=== PATIENT | female | born 1940 | race Asian ===

== ENCOUNTER 2019-09-14 14:03 | Outpatient (CLI) | payer MEDICARE, OTHER, SELFPAY ==
[2019-09-14 14:45] LABS: Hematocrit 42.5 % (37.0-47.0); Hemoglobin 13.7 g/dL (12.0-15.0); Mean Corpuscular HGB Conc 32.2 g/dl (32-36); Mean Corpuscular Hemoglobin 29.2 pg (26-34); Mean Corpuscular Volume 90.6 fl (80-100); Mean Platelet Volume 9.1 fl (7.4-10.4); Platelet Count Result 275 k/mm3 (150-375); Red Blood Count 4.69 M/mm3 (4.2-5.4); Red Cell Distribution Width 14.7 % (11.5-14.5); White Blood Count 6.6 K/mm3 (4.5-10.0)
[2019-09-14 14:55] LABS: Blood Urea Nitrogen 23 mg/dL (7-17); Calcium 9.1 mg/dL (8.4-10.2); Carbon Dioxide 29 mmol/L (22-30); Chloride 99 mmol/L (98-107); Estimated Glomerular Filt Rate > 60; Glucose 151 mg/dL (65-105); Potassium 3.9 mmol/L (3.4-5.0); Sodium 138 mmol/L (137-145)
== END 2019-09-14 14:04 | disposition home or self-care (01) ==
PROVIDERS: PCP Internal Medicine; Visit Provider Specialist
DX: R06.09 Other forms of dyspnea (principal)
CPT/HCPCS: 36415; 80048; 85027

== ENCOUNTER 2019-09-17 14:14 | Outpatient (CLI) | payer MEDICARE, OTHER, SELFPAY ==
[2019-09-17 15:46] LABS: INR 0.9
== END 2019-09-17 14:15 | disposition home or self-care (01) ==
LOC: ANHLAB 14:28
PROVIDERS: PCP Internal Medicine; Visit Provider Specialist
DX: R06.09 Other forms of dyspnea (principal); I25.10 Atherosclerotic heart disease of native coronary artery without angina pectoris
CPT/HCPCS: 36415; 85610

== ENCOUNTER 2019-10-05 18:40 | Emergency (ER) | payer MEDICARE, OTHER, SELFPAY ==
--- NOTE | ~2019-10-05 | CT_ITS ---
EXAMINATION: CT brain wo con DATE: 10/05/2019 19:31 INDICATION: Head injury with fall TECHNIQUE: Computed tomography (CT) of the head was performed without intravenous contrast. Sagittal and coronal reconstructions were performed. The mA was adjusted according to patient size. Iterative reconstruction technique was employed. The dose-length product was 605.33 mGy-cm. COMPARISON: head CT dated 04/22/2016 FINDINGS: No fracture. No acute intracranial hemorrhage, acute infarction or abnormal extra axial fluid collect ion. There is moderate scattered white matter hypoattenuation consistent with chronic small vessel is chemic disease. Symmetric prominence of the sulci and arachnoid spaces overlying the convexities cons istent with mild age-appropriate diffuse cerebral volume loss. Ventricles are normal and symmetric. No mass/mass effect. Mild mucosal thickening in the bilateral ethmoid sinuses with opacification of t he posterior most right ethmoid air cell. The orbits and mastoid air cells are normal. Intracranial c alcified cerebral atherosclerosis is noted. IMPRESSION: 1. No fracture or acute intracranial process. 2. Age-related changes including mild diffuse volume loss and moderate scattered white matter hypoatt enuation consistent with chronic small vessel ischemic disease. Reviewed, dictated and finalized at location A. TIC PARTS FABRICATOR TRIMMER IMPRESSION: 1. No fracture or acute intracranial process. 2. Age-related changes including mild diffuse volume loss and moderate scattere d white matter hypoattenuation consistent with chronic small vessel ischemic di sease.
--- NOTE | ~2019-10-05 | XR_ITS ---
EXAMINATION: XR knee LT min 4V DATE: 10/05/2019 23:41 INDICATION: Left knee pain. TECHNIQUE: 5 views of left knee were obtained. COMPARISON: Left knee radiographs 08/04/2018 FINDINGS: Bone alignment is normal. No fracture. There is mild tricompartmental osteoarthritis. No kn ee joint effusion. IMPRESSION: 1. Mild left knee osteoarthritis. Reviewed, dictated and finalized at location A. EEPER
--- NOTE | ~2019-10-05 | XR_ITS ---
EXAMINATION: XR chest 1V portable DATE: 10/05/2019 19:45 INDICATION: Mid chest pain. COPD. TECHNIQUE: frontal view of the chest was obtained. COMPARISON: Chest radiograph dated 03/29/2019 FINDINGS: Left suprahilar opacity corresponding to a biopsy-proven lung adenocarcinoma. No new airspace opaciti es, pulmonary edema, pleural effusion or pneumothorax. The cardiomediastinal silhouette is normal. Me manjit sternotomy wires and mediastinal surgical clips are seen, likely from prior coronary artery bypa ss grafting. Surgical clips at the base of the neck likely related to prior thyroidectomy. IMPRESSION: 1. No acute cardiopulmonary disease. 2. Left suprahilar opacity corresponding to the location of a previously biopsy-proven lung adenocarc inoma, potentially treatment-related scarring although residual malignancy or pneumonia is not exclud able. Correlate with clinical history. Reviewed, dictated and finalized at location A. STANT PASSENGER LOCOMOTIVE ENGINEER IMPRESSION: 1. No acute cardiopulmonary disease. 2. Left suprahilar opacity corresponding to the location of a previously biopsy -proven lung adenocarcinoma, potentially treatment-related scarring although re sidual malignancy or pneumonia is not excludable. Correlate with clinical histo ry.
--- NOTE | ~2019-10-05 | XR_ITS ---
EXAMINATION: XR ankle LT min 3V, XR foot LT min 3V DATE: 10/05/2019 19:45 INDICATION: History of uterine over the foot with the left ankle pain and abrasion TECHNIQUE: 1. Anteroposterior, mortise, additional oblique and lateral view of the left ankle were obtained. 2. Dorsoplantar, two oblique and lateral views of the left foot were obtained. COMPARISON: None. FINDINGS: Alignment of the foot and ankle is normal. Nondisplaced extra articular fracture extending across the proximal metaphyseal region of the left fourth metatarsal which is best appreciated on the AP and mo rtise views of the left ankle. No other fractures identified. Joint spaces are well maintained. Small Achilles and plantar calcaneal spurs. Mild soft tissue swelling of the medial aspect of the mid and hindfoot and over the dorsum of the forefoot. No ankle joint effusion. The soft tissues are unremarka ble. IMPRESSION: 1. Nondisplaced extra-articular fracture across the proximal metaphyseal region of the left fourth me tatarsal. Reviewed, dictated and finalized at location A. CULAR PATHOLOGIST IMPRESSION: 1. Nondisplaced extra-articular fracture across the proximal metaphyseal region of the left fourth metatarsal.
--- NOTE | ~2019-10-05 | CT_ITS ---
EXAMINATION: CT lumbar spine wo con DATE: 10/06/2019 00:37 INDICATION: Low back pain. TECHNIQUE: Computed tomography (CT) of the lumbar spine was performed without intravenous contrast. A utomated exposure control and iterative reconstruction technique were employed. The dose-length produ ct was 812.17 mGy-cm. COMPARISON: None FINDINGS: There is a 3.9 cm cyst in right kidney. There is a 4 mm left kidney stone. There is a 3.0 c m fusiform aneurysm of infrarenal aorta. L5 is a transitional segment. There is 4 mm anterolisthesis of L3 on L4. There is mild chronic anterior wedging of T12 vertebral body, likely physiologic. Interv ertebral disc heights are normal. The following disc levels are specifically discussed: L1-L2: The disc does not extend beyond the endplate margin. There is mild bilateral facet joint osteo arthritis. There is no neural foraminal stenosis. There is no central canal stenosis. L2-L3: The disc is bulging. There is severe bilateral facet joint osteoarthritis. There is mild bilat eral neural foraminal stenosis. There is mild central canal stenosis. L3-L4: The disc is bulging. There is severe bilateral facet joint osteoarthritis. There is mild bilat eral neural foraminal stenosis. There is mild central canal stenosis. L4-L5: The disc is bulging. There is severe bilateral facet joint osteoarthritis. There is mild bilat eral neural foraminal stenosis. There is mild central canal stenosis. L5-S1: The disc does not extend beyond the endplate margin. There is no facet joint hypertrophy. Ther e is no neural foraminal stenosis. There is no central canal stenosis. IMPRESSION: 1. Mild lumbar spondylosis. 2. 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 Reviewed, dictated and finalized at location A. NTOR
--- NOTE | ~2019-10-05 | XR_ITS ---
EXAMINATION: XR hip LT 2V w AP pelvis DATE: 10/05/2019 23:41 INDICATION: Left hip pain. Fall. TECHNIQUE: An anteroposterior view of the pelvis and 2 views of left hip were obtained. COMPARISON: Pelvis and right hip radiographs 05/09/2017 FINDINGS: Bone alignment is normal. No fracture. The hip joint spaces are normal. Osteitis pubis is n oted. There is mild lumbar spondylosis. There are surgical clips in left thigh. IMPRESSION: 1. No fracture. Reviewed, dictated and finalized at location A. D SERVICE COORDINATOR IMPRESSION: 1. No fracture.
[2019-10-05 18:35] VITALS: BP 197/87; PULSE 95; RESP 17; TEMP 36.8; O2SAT 100
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
[2019-10-05 18:56] VITALS: PULSE 95
--- NOTE | 2019-10-05 19:03 | ECG_ITS ---
Measurements Intervals [place] Rate: 89 P: 71 OR: 159 QRS: 50 QRSD: 97 T: 53 QT: 383 QTc: 468 Interpretive Statements SINUS RHYTHM MINIMAL Q WAVES- INFERIOR LEADS BASELINE ARTIFACT- V4 BORDERLINE ECG Electronically Signed On 10-06-2019 7:20:28 [place] [facility] by Evan Valverde D.O.
[2019-10-05 19:17] VITALS: BP 160/78; PULSE 98; RESP 15; O2SAT 96
[2019-10-05 19:18] LABS: Glucose Point of Care 110 (65-105)
[2019-10-05 19:22] LABS: Basophils Percent Auto 0.4 % (0.2-1.2); Eosinophils Absolute Auto 0.3 K/mm3 (0-0.3); Eosinophils Percent Auto 3.3 % (0-4.4); Hematocrit 42.5 % (37.0-47.0); Hemoglobin 13.6 g/dL (12.0-15.0); Immature Granulocyte Absolute 0.03 K/mm3 (0.00-0.031); Immature Granulocyte Percent A 0.3 % (0-0.5); Lymphocytes Absolute Auto 2.07 K/mm3 (0.9-3.2); Lymphocytes Percent Auto 22.1 % (18.3-44.2); Mean Corpuscular Hemoglobin 29.1 pg (26-34); Mean Platelet Volume 9.2 fl (7.4-10.4); Monocytes Absolute Auto 0.7 K/mm3 (0.1-0.6); Monocytes Percent Auto 7.6 % (2.6-8.5); Neutrophils Absolute Auto 6.2 K/mm3 (1.3-6.7); Neutrophils Percent Auto 66.3 % (45.5-73.1); Platelet Count Result 286 k/mm3 (150-375); Red Blood Count 4.67 M/mm3 (4.2-5.4); Red Cell Distribution Width 14.7 % (11.5-14.5); White Blood Count 9.4 K/mm3 (4.5-10.0)
[2019-10-05 19:25] LABS: Add Urine Microscopic? YES; Appearance Urine Cloudy (Clear); Bacteria Urine Trace /hpf; Bilirubin Urine Negative (Negative); Blood Urine Negative (Negative); Color Urine Yellow (Yellow); Glucose Urine UA Negative (Negative); Ketones Urine Negative (Negative); Leukocyte Esterase Ur 3+ LEU/UL (Negative); Mucus Urine Rare /lpf; Nitrate Urine Negative (Negative); Protein Urine 2+ mg/dL (Negative); Squamous Epithelial Cell Urine Moderate /hpf (Few); Urobilinogen Urine Negative mg/dL (<2.0); WBC Urine >75 /hpf
[2019-10-05 19:31] LABS: Prothrombin Time 12.5 Seconds (11.1-14.7)
[2019-10-05 19:32] LABS: Partial Thromboplastin Time 28.5 SECONDS (22.3-36.8)
[2019-10-05 19:36] LABS: Alanine Aminotransferase 31 U/L (4-35); Albumin Level 4.4 g/dL (3.5-5.1); Alkaline Phosphatase 91 U/L (38-126); Aspartate Amino Transferase 37 U/L (14-36); Bilirubin,Total 0.3 mg/dL (0.2-1.3); Blood Urea Nitrogen 24 mg/dL (7-17); Calcium 8.5 mg/dL (8.4-10.2); Carbon Dioxide 25 mmol/L (22-30); Chloride 101 mmol/L (98-107); Estimated Glomerular Filt Rate 48; Glucose 118 mg/dL (65-105); Potassium 3.6 mmol/L (3.4-5.0); Sodium 140 mmol/L (137-145)
[2019-10-05 19:47] LABS: Troponin I < 0.012 ng/mL (0.000-0.034)
[2019-10-05 20:20] VITALS: BP 123/64; PULSE 96; RESP 20; O2SAT 99
[2019-10-05 21:08] VITALS: BP 141/69; PULSE 97; RESP 18; O2SAT 97
--- NOTE | 2019-10-05 21:39 | PC.NURSE ---
lab called they are unable to find the urine culture on pt. custom feed corn operator notified. additional tube sent down.
[2019-10-05 21:56] VITALS: BP 142/73; PULSE 92; RESP 14; O2SAT 96
[2019-10-05 23:00] LABS: Troponin I < 0.012 ng/mL (0.000-0.034)
[2019-10-05] MEDS: CEPHALEXIN 500 MG CAPSULE PO (23:07)
[2019-10-06] VITALS: BP 156/79; PULSE 107; RESP 19; O2SAT 98
[2019-10-06] MEDS: ACETAMINOPHEN 500 MG TABLET 1000 MG PO (00:39)
[2019-10-06 00:52] VITALS: BP 140/66; PULSE 98; RESP 20; TEMP 36.8; O2SAT 98
[2019-10-06 01:25] VITALS: BP 128/76; PULSE 91; RESP 19; O2SAT 95
== END 2019-10-06 01:25 | disposition home or self-care (01) ==
PROVIDERS: Emergency Provider Emergency Medicine; PCP Internal Medicine
DX: S92.345A Nondisplaced fracture of fourth metatarsal bone, left foot, initial encounter for closed fracture (principal); N39.0 Urinary tract infection, site not specified; I10 Essential (primary) hypertension; I25.119 Atherosclerotic heart disease of native coronary artery with unspecified angina pectoris; E78.00 Pure hypercholesterolemia, unspecified; K21.9 Gastro-esophageal reflux disease without esophagitis; M10.9 Gout, unspecified; M81.0 Age-related osteoporosis without current pathological fracture; Z85.118 Personal history of other malignant neoplasm of bronchus and lung; Z95.1 Presence of aortocoronary bypass graft; E89.0 Postprocedural hypothyroidism; Z95.5 Presence of coronary angioplasty implant and graft; Z87.891 Personal history of nicotine dependence; Z79.82 Long term (current) use of aspirin; M17.12 Unilateral primary osteoarthritis, left knee; M47.816 Spondylosis without myelopathy or radiculopathy, lumbar region; I71.4 Abdominal aortic aneurysm, without rupture; R94.31 Abnormal electrocardiogram [ECG] [EKG]; R07.89 Other chest pain; Z92.3 Personal history of irradiation; V03.00XA Pedestrian on foot injured in collision with car, pick-up truck or van in nontraffic accident, initial encounter
CPT/HCPCS: 36415; 70450; 71045; 72131; 73502; 73521; 73564; 73600; 73610; 73630; 80053; 81001; 82948; 84484; 85025; 85610; 85730; 87077; 87086; 87088; 87186; 93005; 99284; A9270

== ENCOUNTER 2019-10-11 15:51 | Outpatient (CLI) | payer MEDICARE, OTHER, SELFPAY ==
[2019-10-11 17:31] LABS: Add Urine Microscopic? NO; Appearance Urine Clear (Clear); Bilirubin Urine Negative (Negative); Blood Urine Negative (Negative); Color Urine Straw (Yellow); Glucose Urine UA Negative (Negative); Ketones Urine Negative (Negative); Leukocyte Esterase Ur Negative LEU/UL (Negative); Nitrate Urine Negative (Negative); Protein Urine Negative (Negative); Specific Grav Ur 1.008 (1.001-1.035); Urobilinogen Urine Negative mg/dL (<2.0)
== END 2019-10-11 15:52 | disposition home or self-care (01) ==
LOC: ANHLAB 15:53
PROVIDERS: PCP Internal Medicine; Visit Provider Nurse Practitioner
DX: R31.9 Hematuria, unspecified (principal)
CPT/HCPCS: 81003

== ENCOUNTER 2020-01-27 12:48 | Outpatient (CLI) | payer MEDICARE, OTHER, SELFPAY ==
[2020-01-27 13:19] LABS: Hemoglobin A1C 7.4 % (<5.7)
[2020-01-27 13:27] LABS: Alanine Aminotransferase 29 U/L (4-35); Albumin Level 4.5 g/dL (3.5-5.1); Alkaline Phosphatase 76 U/L (38-126); Aspartate Amino Transferase 36 U/L (14-36); Bilirubin,Total 0.3 mg/dL (0.2-1.3); Blood Urea Nitrogen 21 mg/dL (7-17); Calcium 9.2 mg/dL (8.4-10.2); Carbon Dioxide 26 mmol/L (22-30); Chloride 103 mmol/L (98-107); Cholesterol 219 mg/dL (0-200); Estimated Glomerular Filt Rate > 60; Glucose 128 mg/dL (65-105); HDL Direct 43 mg/dL; Potassium 3.7 mmol/L (3.4-5.0); Sodium 138 mmol/L (137-145); Triglycerides 138 mg/dL (<150)
[2020-01-27 13:38] LABS: LDL Cholesterol Direct 132 mg/dL
[2020-01-27 14:00] LABS: Vitamin D 25 Hydroxy 44.5 ng/mL
== END 2020-01-27 12:49 | disposition home or self-care (01) ==
PROVIDERS: PCP Internal Medicine; Visit Provider Internal Medicine
DX: R53.82 Chronic fatigue, unspecified (principal); E11.9 Type 2 diabetes mellitus without complications; E78.5 Hyperlipidemia, unspecified; R20.2 Paresthesia of skin; E55.9 Vitamin D deficiency, unspecified; E03.9 Hypothyroidism, unspecified
CPT/HCPCS: 36415; 80053; 80061; 82306; 82607; 83036; 84443

== ENCOUNTER 2020-02-21 10:35 | Outpatient (CLI) | payer MEDICARE, OTHER, SELFPAY ==
--- NOTE | ~2020-02-21 | CT_ITS ---
EXAMINATION: CT brain wo/w con DATE: 02/21/2020 11:44 INDICATION: Transient cerebral ischemia TECHNIQUE: Computed tomography (CT) of the head was performed without and with 100 cc Omnipaque 350 i ntravenous contrast. The dose-length product was 1210.67 mGy-cm. The mA was adjusted according to pat ient size. Iterative reconstruction technique was employed. COMPARISON: CT dated 10/05/2019 FINDINGS: Mild generalized atrophy. No ventriculomegaly or midline shift. Basilar cisterns are patent . Paranasal sinuses and mastoids are pneumatized. There are scattered mild periventricular and subcor tical white matter changes, most likely related to small vessel ischemic disease (microangiopathy). N o abnormal contrast enhancement. Paranasal sinuses and mastoids are pneumatized. No depressed skull f ractures. No acute intracranial hemorrhage, infarction, mass or mass effect. IMPRESSION: 1. No acute intracranial abnormality. 2: Chronic age-related findings. Reviewed, dictated and finalized at location B.
== END 2020-02-21 10:36 | disposition home or self-care (01) ==
PROVIDERS: PCP Internal Medicine; Visit Provider Internal Medicine
DX: G45.9 Transient cerebral ischemic attack, unspecified (principal)
CPT/HCPCS: 70470; Q9967

== ENCOUNTER 2020-06-11 11:02 | Outpatient (CLI) | payer MEDICARE, OTHER, SELFPAY ==
[2020-06-11 12:02] LABS: Hemoglobin A1C 6.2 % (<5.7)
[2020-06-11 12:03] LABS: Alanine Aminotransferase 38 U/L (4-35); Albumin Level 4.5 g/dL (3.5-5.1); Alkaline Phosphatase 74 U/L (38-126); Anion Gap 7 mmol/L (8-16); Aspartate Amino Transferase 40 U/L (14-36); Bilirubin,Total 0.5 mg/dL (0.2-1.3); Blood Urea Nitrogen 21 mg/dL (7-17); Carbon Dioxide 31 mmol/L (22-30); Chloride 104 mmol/L (98-107); Cholesterol 261 mg/dL (0-200); Estimated Glomerular Filt Rate > 60; Glucose 138 mg/dL (65-105); HDL Direct 53 mg/dL; Potassium 4.1 mmol/L (3.4-5.0); Sodium 142 mmol/L (137-145); Triglycerides 165 mg/dL (<150)
[2020-06-11 12:15] LABS: LDL Cholesterol Direct 162 mg/dL
== END 2020-06-11 11:03 | disposition home or self-care (01) ==
LOC: ANHLAB 11:05
PROVIDERS: PCP Internal Medicine; Visit Provider Internal Medicine
DX: E03.9 Hypothyroidism, unspecified (principal); E11.9 Type 2 diabetes mellitus without complications; I10 Essential (primary) hypertension; E78.5 Hyperlipidemia, unspecified
CPT/HCPCS: 36415; 80053; 80061; 83036; 84443

== ENCOUNTER 2020-10-15 14:58 | Outpatient (CLI) | payer MEDICARE, OTHER, SELFPAY ==
--- NOTE | ~2020-10-15 | MM_ITS ---
EXAMINATION: MM screening caprice BI w veronica HISTORY: Screening mammogram TECHNIQUE: Craniocaudal and mediolateral oblique 3-D tomosynthesis images were obtained and synthetic 2-D images were generated. CAD analysis was submitted and interpreted. COMPARISON: 08/20/2019, 07/21/2018, 07/13/2017 bilateral digital screening mammogram examinations BREAST PARENCHYMAL COMPOSITION: There are scattered areas of fibroglandular density. FINDINGS: Stable 7 mm circumscribed opacity in the upper outer left breast, most likely a stable lee gn intramammary lymph node. There is no evidence of suspicious mass, calcification, or architectural distortion to suggest malignancy in either breast. There has been no suspicious interval change. IMPRESSION: 1. No mammographic evidence of malignancy. 2. Recommend routine screening mammography in one year. BI-RADS Category 2: Benign finding(s). Reviewed, dictated and finalized at location A. L DOCTOR
== END 2020-10-15 14:59 | disposition home or self-care (01) ==
PROVIDERS: PCP Internal Medicine; Visit Provider Internal Medicine
DX: Z12.31 Encounter for screening mammogram for malignant neoplasm of breast (principal)
CPT/HCPCS: 77063; 77067

== ENCOUNTER → 2020-11-02 01:43 | Outpatient (CLI) | payer MEDICARE, OTHER, SELFPAY ==
[2020-11-02 20:12] LABS: SARS-CoV-2 RNA PCR Negative
== END ==
PROVIDERS: PCP Internal Medicine; Visit Provider Plastic Surgery
DX: Z01.812 Encounter for preprocedural laboratory examination (principal); Z20.822 Contact with and (suspected) exposure to COVID-19
CPT/HCPCS: C9803; U0003; U0005

== ENCOUNTER 2020-11-02 14:16 | Outpatient (CLI) | payer MEDICARE, OTHER, SELFPAY ==
--- NOTE | 2020-11-02 14:30 | ECG_ITS ---
Measurements Intervals [place] Rate: 73 P: 63 HI: 156 QRS: 29 QRSD: 98 T: 44 QT: 394 QTc: 437 Interpretive Statements SINUS RHYTHM INCOMPLETE RIGHT BUNDLE BRANCH BLOCK LOW QRS VOLTAGE IN PRECORDIAL LEADS CONSIDER INFERIOR INFARCT, AGE INDETERMINATE BORDERLINE T WAVE ABNORMALITY- ANTEROLATERAL LEADS BASELINE ARTIFACT- I, II, III, AVR ABNORMAL ECG Electronically Signed On 11-02-2020 14:31:50 CDT by Evan Valverde D.O.
[2020-11-02 14:50] LABS: Anion Gap 6 mmol/L (8-16); Blood Urea Nitrogen 21 mg/dL (7-17); Carbon Dioxide 31 mmol/L (22-30); Chloride 101 mmol/L (98-107); Estimated Glomerular Filt Rate 60; Glucose 118 mg/dL (65-105); Potassium 3.7 mmol/L (3.4-5.0); Sodium 138 mmol/L (137-145)
== END 2020-11-02 14:17 | disposition home or self-care (01) ==
PROVIDERS: Anesthesiology; PCP Internal Medicine; Visit Provider Plastic Surgery
DX: I10 Essential (primary) hypertension (principal); E11.9 Type 2 diabetes mellitus without complications; Z01.818 Encounter for other preprocedural examination; I45.10 Unspecified right bundle-branch block
CPT/HCPCS: 36415; 80048; 93005; C9803; U0003; U0005

== ENCOUNTER 2020-11-05 02:41 | Day surgery (SDC) | payer MEDICARE, OTHER, SELFPAY ==
[2020-10-29 09:21] VITALS: BMI 30.4
[2020-11-05] MEDS: LACTATED RINGERS 1,000 ML 30 ML IV CONT ×2 (06:35→08:23)
[2020-11-05 06:39] LABS: Glucose Point of Care 132 (65-105)
--- NOTE | 2020-11-05 06:58 | WPDANESEPPF ---
Anes - Initial Pre Proc Eval Procedure: Operation Date: 11/05/20 07:30 Proposed Procedures p Excision Of Lower Volar Wrist Ganglion Cyst - Rashid Lind MD Date/Time: 11/05/20 06:58 Surgeon: Rashid Lind MD Pre Op Diagnosis: left ganglion cyst Patient Data Age: 80 Gender: F Height: 4 ft 10 in Weight: 66 kg Allergies Allergy/AdvReac Type Severity Reaction Status Date / Time codeine Allergy Mild Dizziness Verified 11/05/20 06:18 sulfamethoxazole Allergy Mild Nausea and Verified 11/05/20 06:18 Vomiting clopidogrel Allergy Unknown Rash Verified 11/05/20 06:18 tiotropium Allergy Unknown Hives / Verified 11/05/20 06:18 Red Face aspartame AdvReac Mild HEADACHE Verified 11/05/20 06:18 Home Medications Medication Instructions Recorded Confirmed Type aspirin 81 mg tablet,delayed 81 mg PO HS 07/25/19 11/05/20 History release candesartan [Atacand] 32 mg PO HS 10/05/19 11/05/20 History dextromethorphan-guaifenesin 10 10 ml PO Q4-6H PRN 02/10/20 11/05/20 History mg-100 mg/5 mL oral liquid docusate sodium 50 mg capsule 50 mg PO DAILY 02/10/20 11/05/20 History lancets 33 gauge #200 each 02/18/20 10/07/20 Rx blood sugar diagnostic #200 each 03/12/20 10/07/20 Rx omeprazole 20 mg capsule,delayed 20 mg PO BID #180 cap 06/17/20 11/05/20 Rx release albuterol sulfate 0.63 mg/3 mL 0.63 mg INHALATION Q4-6H PRN 08/13/20 11/05/20 History solution for nebulization amlodipine 10 mg PO HS 10/29/20 11/05/20 History calcium carbonate-vitamin D3 1 cap PO DAILY 10/29/20 11/05/20 History hydrochlorothiazide 12.5 mg PO DAILY 10/29/20 11/05/20 History levothyroxine [Synthroid] 75 mcg PO QAM 10/29/20 11/05/20 History metformin 500 mg PO DAILY 10/29/20 11/05/20 History potassium chloride 10 meq PO DAILY 10/29/20 11/05/20 History Laboratory Tests 11/05/20 06:37 POC Capillary Glucose 132 mg/dl H mg/dl (65-105) Patient hx anesthesia problems: none Family hx anesthesia problems: none PMFSH Past Medical History Medical History AAA (abdominal aortic aneurysm) Abdominal pain Adenomatous colon polyp Anxiety Arthritis Atherosclerotic heart disease of [place] coronary artery with angina pectoris Bloating Cataracts, bilateral Depression Epigastric pain Essential (primary) hypertension Gastro-esophageal reflux disease without esophagitis Gout Hypothyroidism, unspecified (04/05/19) Lung cancer Osteoporosis Overweight (09/15/15) Pure hypercholesterolemia Screening for breast cancer UTI (urinary tract infection) Surgical History Surgical History History of hysterectomy Hx of CABG Hx of cardiac catheterization Hx of thyroidectomy Status post aortic coarctation stent placement Family History Family History Father Patient's father is Family history of malignant neoplasm Mother Family history of tuberculosis Patient's mother is Sibling Patient's brother is in good health Other Family history of cardiovascular disease Malignant neoplasm of prostate Social History Social History Smoking packs per day: 1 Smoking cigarettes per day: 20.0 Years smoked: 55 Smoking pack-years: 55.00 Tobacco type: cigarettes Second hand tobacco smoke exposure: No Smoking end date: 02/04/19 Alcohol intake: never Substance use: never Living arrangements: alone Gender identity (if verbalized by the patient): Female Spiritual care concerns: No Anes - Eval Final PreProcedure Day of Procedure 11/05/20 06:58 Patient weight: obese Heart: regular rate and rhythm Lungs: decreased breath sounds Airway: Mallampati scale class II Neurological: alert and oriented Last oral intake: >/= 8 hours ASA classification: IV Em
[2020-11-05 06:59] VITALS: BP 122/55; PULSE 81; TEMP 36.3; O2SAT 100
--- NOTE | 2020-11-05 07:19 | WPDHPUPDATE1 ---
History and Physical Update Update Date/Time: 11/05/20 07:19 History and Physical has been reviewed, including an updated exam of the patient. There are NO changes in the patient's condition. Risks, benefits, and alternatives have been discussed and questions answered. Patient agrees to proceed with procedure.
[2020-11-05] MEDS: LIDO 1%/EPINEPHRINE 1:100,000 50 ML VIAL 10 ML INFILTRATE (07:30)
[2020-11-05] MEDS: BACITRACIN OINTMENT 15 GM TUBE 1 APPLIC TOPICAL (08:13)
[2020-11-05 08:25] VITALS: BP 105/51; PULSE 74; RESP 12; O2SAT 96
--- NOTE | 2020-11-05 08:36 | P.OPB_ITS ---
Procedure Note - Brief Procedure Note - Brief Date of procedure: 11/05/20 Pre-op diagnosis: left ganglion cyst Post-op diagnosis: other (Lipoma, 2.5 cm, left volar wrist.) Procedure performed: Excision of lipoma 2.5 cm left volar wrist. Anesthesia: MAC Surgeon: Rashid Lind MD [employer] Job Titles: [employer] Estimated blood loss (mL): 2 Tourniquet time (min): 24 Drains: No Packing: No Pathology: none sent Complications: No immediate complications Condition: stable Disposition: same day
[2020-11-05 08:37] LABS: Glucose Point of Care 124 (65-105)
--- NOTE | 2020-11-05 08:38 | P.OP_ITS ---
Procedure Note - Detailed Date of procedure: 11/05/20 Pre-op diagnosis: left ganglion cyst Post-op diagnosis: other (Lipoma 2.5 cm left volar wrist) Procedure performed: Excision of 2.5 cm lipoma from the left volar wrist Description of procedure: The large do not mass at the left volar wrist was identified in holding area and marked for excision. Patient agreed she was taken to the operating room placed supine on operating table. A time-out was held and confirmed she was given IV sedation. The extremity was prepped and draped in usual fashion. The tourniquet was inflated to 250 mmHg. The dog leg incision was made as marked and dissection through the subcutaneous fat. This rvealed the yellow lobular lipoma. This was somewhat multiloculated and was freed in all directions and removed. The radial artery was identified and care fully not traumatized. A few small branches were cauterized off of that. The site was carefully cauterized for small vessels. The tourniquet was released. A small sq of Surgicel was placed at the very base of this wound. The wound was closed in 2 layers with 4-0 Monocryl suture. A soft bandage was applied with Wellington wrap she is discharged with instructions wound care follow-up. Surgeon: Rashid Lind MD
[2020-11-05 09:05] VITALS: BP 111/46; PULSE 75; RESP 16; O2SAT 95
== END 2020-11-05 09:55 | disposition home or self-care (01) ==
PROVIDERS: PCP Internal Medicine; Visit Provider Plastic Surgery
PROC: (CPT 25075; principal; 2020-11-05 07:30)
DX: D17.22 Benign lipomatous neoplasm of skin and subcutaneous tissue of left arm (principal); Z79.82 Long term (current) use of aspirin; Z79.51 Long term (current) use of inhaled steroids; Z79.84 Long term (current) use of oral hypoglycemic drugs; I71.4 Abdominal aortic aneurysm, without rupture; I25.10 Atherosclerotic heart disease of native coronary artery without angina pectoris; I10 Essential (primary) hypertension; E89.0 Postprocedural hypothyroidism; E78.00 Pure hypercholesterolemia, unspecified; F41.8 Other specified anxiety disorders; K21.9 Gastro-esophageal reflux disease without esophagitis; M10.9 Gout, unspecified; M81.0 Age-related osteoporosis without current pathological fracture; Z95.1 Presence of aortocoronary bypass graft; Z87.891 Personal history of nicotine dependence; E66.9 Obesity, unspecified; Z68.28 Body mass index [BMI] 28.0-28.9, adult
CPT/HCPCS: 25075; A9270; J1100; J2405; J2704; J3010; J7120

== ENCOUNTER 2020-12-09 09:48 | Outpatient (CLI) | payer MEDICARE, OTHER, SELFPAY ==
[2020-12-09 10:35] LABS: Alanine Aminotransferase 23 U/L (4-35); Albumin Level 4.3 g/dL (3.5-5.1); Alkaline Phosphatase 67 U/L (38-126); Anion Gap 7 mmol/L (8-16); Aspartate Amino Transferase 31 U/L (14-36); Bilirubin,Total 0.2 mg/dL (0.2-1.3); Blood Urea Nitrogen 14 mg/dL (7-17); Calcium 8.6 mg/dL (8.4-10.2); Carbon Dioxide 30 mmol/L (22-30); Chloride 106 mmol/L (98-107); Cholesterol 238 mg/dL (0-200); Estimated Glomerular Filt Rate 53; Glucose 122 mg/dL (65-105); HDL Direct 53 mg/dL; Potassium 3.5 mmol/L (3.4-5.0); Sodium 143 mmol/L (137-145); Triglycerides 160 mg/dL (<150)
[2020-12-09 10:36] LABS: Creatinine Urine 196.5 mg/dL
[2020-12-09 10:42] LABS: Hemoglobin A1C 6.8 % (<5.7)
[2020-12-09 10:54] LABS: LDL Cholesterol Direct 128 mg/dL; Vitamin D 25 Hydroxy 53.2 ng/mL
== END 2020-12-09 09:49 | disposition home or self-care (01) ==
PROVIDERS: PCP Internal Medicine; Visit Provider Nurse Practitioner
DX: E78.5 Hyperlipidemia, unspecified (principal); E89.0 Postprocedural hypothyroidism; E11.9 Type 2 diabetes mellitus without complications; E55.9 Vitamin D deficiency, unspecified
CPT/HCPCS: 36415; 80053; 80061; 82043; 82306; 83036; 84443

== ENCOUNTER 2021-01-04 14:01 | Emergency (ER) | payer MEDICARE, OTHER, SELFPAY ==
[2021-01-04 14:58] VITALS: BP 146/82; PULSE 75; RESP 16; TEMP 36.2; O2SAT 99
--- NOTE | 2021-01-04 16:00 | ED.SKABFB ---
HPI - Skin/Abscess/Foreign Bdy General Chief complaint: Skin/Abscess/Foreign Body Stated complaint: R FACE PAIN RASH NOTED Time Seen by Provider: 01/04/21 15:36 Source: patient Mode of arrival: ambulatory Limitations: no limitations History of Present Illness HPI narrative: Patient is a 80-year-old female complaining of a painful rash on her left forehead, eyebrows and face, described as sharp, 7 out of 10, nonradiating started 4 days ago. Patient denies any headache, neck pain or stiffness, fever or chills. Related Data Home Medications Medication Instructions Recorded Confirmed aspirin 81 mg tablet,delayed 81 mg PO HS 07/25/19 12/15/20 release candesartan [Atacand] 32 mg PO HS 10/05/19 12/15/20 dextromethorphan-guaifenesin 10 10 ml PO Q4-6H PRN 02/10/20 12/15/20 mg-100 mg/5 mL oral liquid docusate sodium 50 mg capsule 50 mg PO DAILY 02/10/20 12/15/20 albuterol sulfate 0.63 mg/3 mL 0.63 mg INHALATION Q4-6H PRN 08/13/20 12/15/20 solution for nebulization amlodipine 10 mg PO HS 10/29/20 12/15/20 calcium carbonate-vitamin D3 1 cap PO DAILY 10/29/20 12/15/20 levothyroxine [Synthroid] 75 mcg PO QAM 10/29/20 12/15/20 metformin 500 mg PO DAILY 10/29/20 12/15/20 potassium chloride 10 meq PO DAILY 10/29/20 12/15/20 Allergies Allergy/AdvReac Type Severity Reaction Status Date / Time codeine Allergy Mild Dizziness Verified 12/15/20 10:14 sulfamethoxazole Allergy Mild Nausea and Verified 12/15/20 10:14 Vomiting clopidogrel Allergy Unknown Rash Verified 12/15/20 10:14 tiotropium Allergy Unknown Hives / Verified 12/15/20 10:14 Red Face aspartame AdvReac Mild HEADACHE Verified 12/15/20 10:14 Review of Systems Review of Systems: All systems reviewed & are unremarkable except as noted in HPI and below PMFSH Past Medical History Medical History AAA (abdominal aortic aneurysm) Abdominal pain Adenomatous colon polyp Anxiety Arthritis Atherosclerotic heart disease of [place] coronary artery with angina pectoris Bloating Cataracts, bilateral Depression Epigastric pain Essential (primary) hypertension Gastro-esophageal reflux disease without esophagitis Gout Hypothyroidism, unspecified (04/05/19) Lung cancer Osteoporosis Overweight (09/15/15) Pure hypercholesterolemia Screening for breast cancer UTI (urinary tract infection) Surgical History Surgical History History of hysterectomy Hx of CABG Hx of cardiac catheterization Hx of thyroidectomy Status post aortic coarctation stent placement Family History Family History Father Patient's father is Family history of malignant neoplasm Mother Family history of tuberculosis Patient's mother is Sibling Patient's brother is in good health Other Family history of cardiovascular disease Malignant neoplasm of prostate Social History Social History Smoking packs per day: 1 Smoking cigarettes per day: 20.0 Years smoked: 55 Smoking pack-years: 55.00 Smoking status: Former smoker Tobacco type: cigarettes Second hand tobacco smoke exposure: No Smoking end date: 02/04/19 Alcohol intake: never Substance use: never Gender identity (if verbalized by the patient): Female Spiritual care concerns: No Exam Const: General: no acute distress and alert Orientation/consciousness: patient oriented x3 HENMT: Other: Erythematous, painful, rash Course Vital Signs Vital signs: Vital Signs Temperature 36.2 C L 01/04/21 14:58 Pulse Rate 75 01/04/21 14:58 Respiratory Rate 16 01/04/21 14:58 Blood Pressure 146/82 H 01/04/21 14:58 Pulse Oximetry 99 01/04/21 14:58 Temperature 36.2 C L 01/04/21 14:58 Pulse Rate 75 01/04/21 17:47 Respiratory Rate 18 01/04
[2021-01-04 17:47] VITALS: BP 142/74; PULSE 75; RESP 18; O2SAT 100
== END 2021-01-04 18:16 | disposition home or self-care (01) ==
PROVIDERS: Emergency Provider Emergency Medicine; PCP Internal Medicine
DX: B02.9 Zoster without complications (principal); I25.119 Atherosclerotic heart disease of native coronary artery with unspecified angina pectoris; I10 Essential (primary) hypertension; E78.00 Pure hypercholesterolemia, unspecified; K21.9 Gastro-esophageal reflux disease without esophagitis; M81.0 Age-related osteoporosis without current pathological fracture; M19.90 Unspecified osteoarthritis, unspecified site; H26.9 Unspecified cataract; Z86.010 Personal history of colon polyps; Z87.440 Personal history of urinary (tract) infections; Z85.118 Personal history of other malignant neoplasm of bronchus and lung; Z95.1 Presence of aortocoronary bypass graft; E89.0 Postprocedural hypothyroidism; Z79.4 Long term (current) use of insulin; Z79.82 Long term (current) use of aspirin; Z87.891 Personal history of nicotine dependence
CPT/HCPCS: 99283

== ENCOUNTER 2021-01-18 14:30 | Outpatient (CLI) | payer MEDICARE, OTHER, SELFPAY ==
--- NOTE | ~2021-01-18 | CT_ITS ---
EXAMINATION: CT diagnostic chest wo con DATE: 01/18/2021 14:57 INDICATION: Personal history of malignant neoplasm of bronchus and lung TECHNIQUE: Computed tomography (CT) of the chest was performed without intravenous contrast. Automate d exposure control and iterative reconstruction technique were employed. Exam dose: 149.50 mGy-cm to jo exam DLP. COMPARISON: Numerous portable AP chest 03/29/2019 2 view chest 08/04/2018 CT pulmonary scan FINDINGS: There is left lung volume loss with prominent discoid spans of density extending from the l eft hilar area into the anteromedial left lung and along the greater fissure in the left mid lung. The differential diagnosis includes postoperative and/or postradiation scarring versus residual or re current pulmonary malignancy. Consider PET/CT scan for further evaluation. There are scattered subcentimeter nodular densities in the posterior basilar left lower lung and the costophrenic gutter. There are scattered focal areas of pleural thickening along the left chest wall. Pulmonary and pleural metastatic disease cannot be excluded. No pulmonary consolidation is noted otherwise. Status post sternotomy. Heart size appears within normal range. There is extensive aortic as well as great vessel calcifications. No thoracic aortic aneurysm. No pericardial or pleural effusion. The adrenal glands are unremarkable. Probable upper pole right renal cyst. Dextro scoliosis and degenerative change of the thoracic spine. No suspicious osteolytic or osteoblas tic lesions are noted. IMPRESSION: Discoid soft tissue band extending from the left hilum into the left mid and upper lung zones; differential diagnosis includes postsurgical and/or post radiation scarring versus residual or recurrent pulmonary malignancy. Subcentimeter pleural and pulmonary nodules on the left; metastases are not excluded. Consider PET/CT imaging Reviewed, dictated and finalized at [facility]. Reviewed, dictated and finalized at [facility]. IMPRESSION: Discoid soft tissue band extending from the left hilum into the le ft mid and upper lung zones; differential diagnosis includes postsurgical and/o r post radiation scarring versus residual or recurrent pulmonary malignancy. Subcentimeter pleural and pulmonary nodules on the left; metastases are not exc luded. Consider PET/CT imaging
== END 2021-01-18 14:31 | disposition home or self-care (01) ==
LOC: ANHIMG 14:39
PROVIDERS: PCP Internal Medicine; Visit Provider Radiology Radiation Oncology
DX: Z85.118 Personal history of other malignant neoplasm of bronchus and lung (principal); R91.8 Other nonspecific abnormal finding of lung field
CPT/HCPCS: 71250

== ENCOUNTER 2021-02-26 01:57 | Day surgery (SDC) | payer MEDICARE, OTHER, SELFPAY ==
[2021-02-12 08:25] VITALS: BMI 29.9
[2021-02-26 10:35] VITALS: BP 121/101; PULSE 68; RESP 20; TEMP 36.3; O2SAT 100; BMI 29.9
[2021-02-26] MEDS: LACTATED RINGERS 1,000 ML 150 ML IV CONT (10:51)
[2021-02-26 10:56] LABS: Glucose Point of Care 134 mg/dl (65-105)
--- NOTE | 2021-02-26 11:10 | WPDANESEPPF ---
Anes - Initial Pre Proc Eval Procedure: Operation Date: 02/26/21 11:30 Proposed Procedures p Esophagogastroduodenoscopy & Screening Colonoscopy - Sarabjit Grider MD Date/Time: 02/26/21 11:10 Surgeon: Sarabjit Grider MD Pre Op Diagnosis: hx of colon polyps, Patient Data Age: 80 Gender: F Height: 1.47 m Weight: 65 kg Last Vital Signs Temp 97.4 F L 02/26/21 10:35 Pulse 68 02/26/21 10:35 Resp 20 02/26/21 10:35 BP 121/101 H 02/26/21 10:35 Pulse Ox 100 02/26/21 10:35 Allergies Allergy/AdvReac Type Severity Reaction Status Date / Time codeine Allergy Mild Dizziness Verified 02/26/21 10:34 sulfamethoxazole Allergy Mild Nausea and Verified 02/26/21 10:34 Vomiting clopidogrel Allergy Unknown Rash Verified 02/26/21 10:34 tiotropium Allergy Unknown Hives / Verified 02/26/21 10:34 Red Face fluticasone Allergy Hives Verified 02/26/21 10:34 [From Advair Diskus] salmeterol Allergy Hives Verified 02/26/21 10:34 [From Advair Diskus] aspartame AdvReac Mild HEADACHE Verified 02/26/21 10:34 Home Medications Medication Instructions Recorded Confirmed Type aspirin 81 mg tablet,delayed 81 mg PO HS 07/25/19 02/16/21 History release candesartan [Atacand] 32 mg PO HS 10/05/19 02/16/21 History dextromethorphan-guaifenesin 10 10 ml PO Q4-6H PRN 02/10/20 02/16/21 History mg-100 mg/5 mL oral liquid docusate sodium 50 mg capsule 50 mg PO DAILY 02/10/20 02/16/21 History lancets 33 gauge #200 each 02/18/20 02/16/21 Rx blood sugar diagnostic #200 each 03/12/20 02/16/21 Rx albuterol sulfate 0.63 mg/3 mL 0.63 mg INHALATION Q4-6H PRN 08/13/20 02/16/21 History solution for nebulization amlodipine 10 mg PO HS 10/29/20 02/16/21 History calcium carbonate-vitamin D3 1 cap PO DAILY 10/29/20 02/16/21 History metformin 500 mg PO DAILY 10/29/20 02/16/21 History potassium chloride 10 meq PO DAILY 10/29/20 02/16/21 History sodium,potassium,mag sulfates 17.5 See Rx Instructions PO .COMPLEX 12/25/20 02/16/21 Rx gram-3.13 gram-1.6 gram oral soln #354 ml omeprazole 20 mg capsule,delayed 20 mg PO BID #180 cap 12/29/20 02/16/21 Rx release furosemide 20 mg PO DAILY PRN 01/12/21 02/16/21 History levothyroxine 75 mcg tablet 75 mcg PO QAM #90 tablet 02/16/21 02/16/21 Rx Laboratory Tests 02/26/21 10:49 POC Capillary Glucose 134 mg/dl H mg/dl (65-105) Patient hx anesthesia problems: none Family hx anesthesia problems: none PMFSH Past Medical History Medical History AAA (abdominal aortic aneurysm) Abdominal pain Adenomatous colon polyp Anxiety Arthritis Atherosclerotic heart disease of [place] coronary artery with angina pectoris Bloating Cataracts, bilateral Depression Epigastric pain Essential (primary) hypertension Gastro-esophageal reflux disease without esophagitis Gout Hypothyroidism, unspecified (04/05/19) Lung cancer Osteoporosis Overweight (09/15/15) Pure hypercholesterolemia Screening for breast cancer UTI (urinary tract infection) Surgical History Surgical History History of hysterectomy Hx of CABG Hx of cardiac catheterization Hx of thyroidectomy Status post aortic coarctation stent placement Family History Family History Father Patient's father is Family history of malignant neoplasm Mother Family history of tuberculosis Patient's mother is Sibling Patient's brother is in good health Other Family history of cardiovascular disease Malignant neoplasm of prostate Social History Social History Smoking packs per day: 1 Smoking cigarettes per day: 20.0 Years smoked: 40 Smoking pack-years: 40.00 Smoking status: Former smoker Tobacco type: cigarettes Second hodgson
--- NOTE | 2021-02-26 11:11 | PM.HPGS ---
History of Present Illness History of Present Illness Consent: Risks, benefits, and alternatives have been discussed and questions answered. Patient agrees to proceed with procedure. Chief complaint: hx of colon polyps, Narrative: Grecia Quinn is a 80 year old female with gerd on omeprazole bid, colon polyp about 5 years ago. Review of Systems Constitutional: Constitutional: Denies headache(s) and Denies weakness Eyes: Eyes: Denies blurry vision ENT: Reports Normal hearing present, Denies headache(s) and Denies neck pain Cardiovascular: Cardiovascular: Denies chest pain and Denies dyspnea Respiratory: Respiratory: Denies dyspnea Gastrointestinal: Gastrointestinal: Reports no additional gastrointestinal complaints Genitourinary: Genitourinary: Denies dysuria Musculoskeletal: Musculoskeletal: Denies neck pain Integumentary/Breasts: Skin/Breast: Denies dry skin Neurologic: Reports Normal hearing present, Denies headache(s) and Denies weakness Psychiatric: Psychiatric: Denies anxiety Endocrine: Endocrine: Denies change in body appearance Hematologic/Lymphatic: Hematologic/Lymphatic: Denies easy bleeding Allergic/Immunologic: Allergic/Immunologic: Denies urticaria PMFSH Past Medical History Medical History AAA (abdominal aortic aneurysm) Abdominal pain Adenomatous colon polyp Anxiety Arthritis Atherosclerotic heart disease of [place] coronary artery with angina pectoris Bloating Cataracts, bilateral Depression Epigastric pain Essential (primary) hypertension Gastro-esophageal reflux disease without esophagitis Gout Hypothyroidism, unspecified (04/05/19) Lung cancer Osteoporosis Overweight (09/15/15) Pure hypercholesterolemia Screening for breast cancer UTI (urinary tract infection) Surgical History Surgical History History of hysterectomy Hx of CABG Hx of cardiac catheterization Hx of thyroidectomy Status post aortic coarctation stent placement Family History Family History Father Patient's father is Family history of malignant neoplasm Mother Family history of tuberculosis Patient's mother is Sibling Patient's brother is in good health Other Family history of cardiovascular disease Malignant neoplasm of prostate Social History Social History Smoking packs per day: 1 Smoking cigarettes per day: 20.0 Years smoked: 40 Smoking pack-years: 40.00 Smoking status: Former smoker Tobacco type: cigarettes Second hand tobacco smoke exposure: No Smoking end date: 02/04/19 Alcohol intake: never Substance use: never Substance use type: does not use Gender identity (if verbalized by the patient): Female Spiritual care concerns: No Meds Home Medications and Allergies Home Medications Medication Instructions Recorded Confirmed Type aspirin 81 mg tablet,delayed 81 mg PO HS 07/25/19 02/16/21 History release candesartan [Atacand] 32 mg PO HS 10/05/19 02/16/21 History dextromethorphan-guaifenesin 10 10 ml PO Q4-6H PRN 02/10/20 02/16/21 History mg-100 mg/5 mL oral liquid docusate sodium 50 mg capsule 50 mg PO DAILY 02/10/20 02/16/21 History lancets 33 gauge #200 each 02/18/20 02/16/21 Rx blood sugar diagnostic #200 each 03/12/20 02/16/21 Rx albuterol sulfate 0.63 mg/3 mL 0.63 mg INHALATION Q4-6H PRN 08/13/20 02/16/21 History solution for nebulization amlodipine 10 mg PO HS 10/29/20 02/16/21 History calcium carbonate-vitamin D3 1 cap PO DAILY 10/29/20 02/16/21 History metformin 500 mg PO DAILY 10/29/20 02/16/21 History potassium chloride 10 meq PO DAILY 10/29/20 02/16/21 History sodium,potassium,mag sulfates 17.5 See Rx Instructions PO .COMPLEX 12/25/20 02/16/21 Rx gram-3.13 gram-1.6 gram oral s
[2021-02-26 11:37] VITALS: BP 125/69; PULSE 67; RESP 20; O2SAT 97
[2021-02-26 11:47] VITALS: BP 149/71; PULSE 64; RESP 20; O2SAT 96
[2021-02-26 11:57] VITALS: BP 163/82; PULSE 66; RESP 15; O2SAT 98
[2021-02-26 12:17] LABS: Glucose Point of Care 100 mg/dl (65-105)
== END 2021-02-26 12:21 | disposition home or self-care (01) ==
PROVIDERS: PCP Internal Medicine; Visit Provider Internal Medicine Gastroenterology
PROC: 0DJ08ZZ Inspection of Upper Intestinal Tract, Via Natural or Artificial Opening Endoscopic (ICD-10-PCS; CPT 43235; principal; 2021-02-26 11:30)
DX: Z12.11 Encounter for screening for malignant neoplasm of colon (principal); K63.5 Polyp of colon; K57.30 Diverticulosis of large intestine without perforation or abscess without bleeding; K64.8 Other hemorrhoids; K21.00 Gastro-esophageal reflux disease with esophagitis, without bleeding; K44.9 Diaphragmatic hernia without obstruction or gangrene; K31.7 Polyp of stomach and duodenum; I10 Essential (primary) hypertension; I25.10 Atherosclerotic heart disease of native coronary artery without angina pectoris; I71.4 Abdominal aortic aneurysm, without rupture; F41.8 Other specified anxiety disorders; M10.9 Gout, unspecified; E03.9 Hypothyroidism, unspecified; M81.0 Age-related osteoporosis without current pathological fracture; Z85.118 Personal history of other malignant neoplasm of bronchus and lung; Z95.1 Presence of aortocoronary bypass graft; Z87.891 Personal history of nicotine dependence; E66.9 Obesity, unspecified; Z68.29 Body mass index [BMI] 29.0-29.9, adult; Z79.82 Long term (current) use of aspirin; Z79.51 Long term (current) use of inhaled steroids; Z79.84 Long term (current) use of oral hypoglycemic drugs
CPT/HCPCS: 45380; 43239; 82948; 88305; J2704; J7120

== ENCOUNTER 2021-04-22 13:07 | Outpatient (CLI) | payer MEDICARE, OTHER, SELFPAY ==
--- NOTE | ~2021-04-22 | DEXA_ITS ---
Bone Density Report Name: Grecia Quinn Age: 80 Sex: Female Ethnicity: Date of : 1940 Indication: osteopenia; monitoring treatment; cancer; hysterectomy; postmenopausal Referring Provider: Mackenzie Grimes Study: Bone densitometry was performed. Exam Date: April 22, 2021 Accession number: [id number] Bone Density: Region BMD T-score Z-score Classification AP Spine (L1, L2, L3) 0.915 -0.9 1.7 Normal Femoral Neck (Left) 0.501 -3.1 -0.8 Osteoporosis Total Hip (Left) 0.821 -1.0 1.1 Normal Total Hip Bilateral Avg 0.818 -1.0 1.1 Osteopenia Femoral Neck (Right) 0.547 -2.7 -0.4 Osteoporosis Total Hip (Right) 0.815 -1.0 1.0 Normal World Health Organization criteria for BMD impression classify patients as: Normal (T-score at or above -1.0), Osteopenia (T-score between -1.0 and -2.5), or Osteoporosis (T-score at or below -2.5). 10-year Fracture Risk: FRAX not reported because: Some T-score for Spine Total or Hip Total or Femoral Neck at or below -2.5 Treated for osteoporosis Previous Exams: Region Exam Age BMD T-score BMD Change BMD Change Date g/cm2 vs Baseline vs Previous AP Spine(L1, L2, L3) 04/22/2021 80 0.915 -0.9 0.051(5.9%)* 0.017(1.9%) 05/22/2018 78 0.899 -1.1 0.034(4.0%)* 0.034(4.0%)* 01/18/2016 75 0.865 -1.4 Total Hip(Left) 04/22/2021 80 0.821 -1.0 0.029(3.7%)* -0.005(-0.6%) 05/22/2018 78 0.826 -1.0 0.034(4.3%)* 0.034(4.3%)* 01/18/2016 75 0.792 -1.2 Total Hip(Right) 04/22/2021 80 0.815 -1.0 0.036(4.6%)* -0.081(-9.1%)* 05/22/2018 78 0.896 -0.4 0.117(15.0%)* 0.117(15.0%)* 01/18/2016 75 0.779 -1.3 *Denotes significance at 95% confidence level, LSC for AP Spine = 0.022 g/cm2, LSC for Total Hip = 0.027 g/cm2 Clinical Information Provided by Patient: Smokes Is being treated for osteoporosis Has used the following medications: Fosamax (i.e. alendronate), Vitamin D, Calcium Has the following medical conditions: Cancer, Hysterectomy Patient maximum height was 58 Menopause Age: 36 No regular weight bearing exercise Does not regularly consume dairy products Drinks caffeinated beverages Onset of menses at age 14 Number of children 3 Impression: The patient has osteoporosis, based on the Left Femoral Neck T-score. The patient has risk factors, including: smoking. The BMD for the Total Hip(Right) decreased, changing by -9.1% since the last DXA exam. Discussion: SIGNIFICANT
== END 2021-04-22 13:08 | disposition home or self-care (01) ==
LOC: ANHIMG 13:09
PROVIDERS: PCP Internal Medicine; Visit Provider Internal Medicine Endocrinology, Diabetes & Metabolism
DX: Z78.0 Asymptomatic menopausal state (principal); M81.0 Age-related osteoporosis without current pathological fracture; M85.88 Other specified disorders of bone density and structure, other site
CPT/HCPCS: 77080

== ENCOUNTER 2021-06-16 10:53 | Outpatient (CLI) | payer MEDICARE, OTHER, SELFPAY ==
[2021-06-16 12:26] LABS: Alanine Aminotransferase 25 U/L (4-35); Albumin Level 4.3 g/dL (3.5-5.1); Alkaline Phosphatase 72 U/L (38-126); Anion Gap 9 mmol/L (8-16); Aspartate Amino Transferase 30 U/L (14-36); Bilirubin,Total 0.4 mg/dL (0.2-1.3); Blood Urea Nitrogen 38 mg/dL (7-17); Calcium 9.4 mg/dL (8.4-10.2); Carbon Dioxide 24 mmol/L (22-30); Chloride 106 mmol/L (98-107); Cholesterol 218 mg/dL (0-200); Estimated Glomerular Filt Rate 53; Glucose 116 mg/dL (65-110); HDL Direct 60 mg/dL; Potassium 4.1 mmol/L (3.4-5.0); Sodium 139 mmol/L (137-145); Triglycerides 78 mg/dL (<150)
[2021-06-16 12:34] LABS: Hemoglobin A1C 6.5 % (<5.7)
[2021-06-16 12:37] LABS: LDL Cholesterol Direct 130 mg/dL
[2021-06-16 12:43] LABS: Vitamin D 25 Hydroxy 62.8 ng/mL
[2021-06-16 12:56] LABS: Thyroid Stimulating Hormone 0.544 uIU/mL (0.465-4.680)
== END 2021-06-16 10:54 | disposition home or self-care (01) ==
LOC: ANHLAB 10:56
PROVIDERS: PCP Internal Medicine; Visit Provider Internal Medicine
DX: E78.5 Hyperlipidemia, unspecified (principal); E55.9 Vitamin D deficiency, unspecified; E03.9 Hypothyroidism, unspecified; E11.9 Type 2 diabetes mellitus without complications; I25.119 Atherosclerotic heart disease of native coronary artery with unspecified angina pectoris
CPT/HCPCS: 36415; 80053; 80061; 82306; 83036; 84443

== ENCOUNTER 2021-07-05 15:26 | Outpatient (CLI) | payer MEDICARE, OTHER, SELFPAY ==
--- NOTE | ~2021-07-05 | XR_ITS ---
XR chest 2V 07/05/2021 16:00 Indication: Dyspnea. Chronic obstructive pulmonary disease. Procedure: PA and lateral views of the chest Comparison: Comparison to multiple prior studies sequentially, with oldest reviewed study dated 07/09. Findings: There is coarse interstitial infiltrates of the left upper lung, most likely scarring/fibro sis, possibly sequela of radiation therapy. No acute focal pneumonia, edema or effusion. Status post median sternotomy for CABG. Heart size is normal. Impression: 1: No acute cardiopulmonary disease. Reviewed, dictated and finalized at [facility]. OLL CLERK Impression: 1: No acute cardiopulmonary disease.
== END 2021-07-05 15:27 | disposition home or self-care (01) ==
PROVIDERS: PCP Internal Medicine; Visit Provider Internal Medicine Pulmonary Disease
DX: J44.9 Chronic obstructive pulmonary disease, unspecified (principal); Z95.1 Presence of aortocoronary bypass graft; C34.32 Malignant neoplasm of lower lobe, left bronchus or lung; F17.211 Nicotine dependence, cigarettes, in remission; R05.3 Chronic cough; R06.00 Dyspnea, unspecified; I10 Essential (primary) hypertension; K21.9 Gastro-esophageal reflux disease without esophagitis
CPT/HCPCS: 71046

== ENCOUNTER 2021-07-21 13:03 | Outpatient (CLI) | payer MEDICARE, OTHER, SELFPAY ==
--- NOTE | ~2021-07-21 | CT_ITS ---
EXAMINATION: CT diagnostic chest wo con DATE: 07/21/2021 13:23 INDICATION: Non-small cell lung cancer left lung. TECHNIQUE: Computed tomography (CT) of the chest was performed without intravenous contrast. The dose -length product was 199.14 mGy-cm. Automated exposure control and iterative reconstruction technique were employed. COMPARISON: CT dated 01/18/2021 FINDINGS: There is nodular discoid soft tissue with irregular margins in the left mid and upper lung which has increased in bulk compared with prior examination. There is left pleural thickening with ar eas of pleural nodularity. There is atherosclerosis of the aorta and coronary arteries. Status post m edian sternotomy for CABG. Small hiatal hernia. No significant thoracic lymphadenopathy. There is abd ominal aortic ectasia measuring up to 2.8 cm. There is a large right renal cyst measuring 4 cm. Gallb ladder is present. There is dextroscoliosis. No acute osseous abnormality. No focal lytic or blastic lesions. IMPRESSION: 1. Increase of bulky nodular discoid soft tissue of the left mid and upper lung with associated pleur al-based nodularity throughout the left lung, consistent with progression of known malignancy with pr obable pleural metastases. Consider correlation with pet/CT scan. Reviewed, dictated and finalized at [facility]. [facility] IMPRESSION: 1. Increase of bulky nodular discoid soft tissue of the left mid and upper lung with associated pleural-based nodularity throughout the left lung, consistent with progression of known malignancy with probable pleural metastases. Consider correlation with pet/CT scan.
== END 2021-07-21 13:04 | disposition home or self-care (01) ==
LOC: ANHIMG 13:05
PROVIDERS: PCP Internal Medicine; Visit Provider Radiology Radiation Oncology
DX: C34.92 Malignant neoplasm of unspecified part of left bronchus or lung (principal)
CPT/HCPCS: 71250

== ENCOUNTER 2021-08-17 15:01 | Outpatient (CLI) | payer MEDICARE, OTHER, SELFPAY ==
[2021-08-17 16:28] LABS: Anion Gap 11 mmol/L (8-16); Blood Urea Nitrogen 28 mg/dL (7-17); Calcium 9.3 mg/dL (8.4-10.2); Carbon Dioxide 26 mmol/L (22-30); Chloride 102 mmol/L (98-107); Estimated Glomerular Filt Rate 53; Glucose 105 mg/dL (65-110); Sodium 139 mmol/L (137-145)
[2021-08-17 16:40] LABS: Parathyroid Intact 39.9 pg/mL (7.5-53.5)
[2021-08-17 16:42] LABS: Free T4 Free Thyroxine 1.79 ng/mL (0.78-2.19)
== END 2021-08-17 15:02 | disposition home or self-care (01) ==
LOC: ANHWCLAB 15:04
PROVIDERS: PCP Internal Medicine; Visit Provider Internal Medicine Endocrinology, Diabetes & Metabolism
DX: M81.0 Age-related osteoporosis without current pathological fracture (principal); E89.0 Postprocedural hypothyroidism; E55.9 Vitamin D deficiency, unspecified
CPT/HCPCS: 36415; 80048; 83970; 84439; 84443

== ENCOUNTER 2021-10-27 15:02 | Outpatient (CLI) | payer MEDICARE, OTHER, SELFPAY ==
--- NOTE | ~2021-10-27 | MM_ITS ---
EXAMINATION: MM screening caprice BI w veronica HISTORY: Screening mammogram TECHNIQUE: Craniocaudal and mediolateral oblique 3-D tomosynthesis images were obtained and synthetic 2-D images were generated. CAD analysis was submitted and interpreted. COMPARISON: 10/15/2020, 08/20/2019, 07/21/2018 bilateral screening mammogram examinations BREAST PARENCHYMAL COMPOSITION: There are scattered areas of fibroglandular density. FINDINGS: Stable mild fibroglandular asymmetry, including probable stable circumscribed 6 mm benign i ntramammary lymph node in the upper outer left breast.. There is no evidence of suspicious mass, calc ification, or architectural distortion to suggest malignancy in either breast. There has been no susp icious interval change. IMPRESSION: 1. No mammographic evidence of malignancy. 2. Recommend routine screening mammography in one year. BI-RADS Category 2: Benign finding(s). Reviewed, dictated and finalized at [facility].
== END 2021-10-27 15:03 | disposition home or self-care (01) ==
PROVIDERS: PCP Internal Medicine; Visit Provider Internal Medicine
DX: Z12.31 Encounter for screening mammogram for malignant neoplasm of breast (principal)
CPT/HCPCS: 77063; 77067

== ENCOUNTER 2021-12-07 11:45 | Outpatient (CLI) | payer MEDICARE, OTHER, SELFPAY ==
--- NOTE | ~2021-12-07 | XR_ITS ---
EXAMINATION: XR finger 3rd RT min 2V INDICATION: Right third finger pain TECHNIQUE: Four views of the right third finger are obtained. COMPARISON: None available FINDINGS: There is soft tissue swelling of the third finger. Bone alignment is normal. There is no fr acture. 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 No abnormal erosio ns are identified. IMPRESSION: 1. Soft tissue swelling of the third finger without acute osseous abnormality. Reviewed, dictated and finalized at [facility].
[2021-12-07 13:42] LABS: Uric Acid 7.7 mg/dL (2.5-7.5)
[2021-12-07 21:59] LABS: Erythrocyte Sedimentation Rate 62 mm/hr (0-20)
== END 2021-12-07 11:46 | disposition home or self-care (01) ==
LOC: ANHLAB 11:47
PROVIDERS: PCP Internal Medicine; Visit Provider Nurse Practitioner
DX: M79.644 Pain in right finger(s) (principal); M79.89 Other specified soft tissue disorders
CPT/HCPCS: 36415; 73140; 84550; 85652

== ENCOUNTER 2022-01-21 12:14 | Outpatient (CLI) | payer MEDICARE, SELFPAY ==
[2022-01-21 13:08] LABS: Alanine Aminotransferase 24 U/L (6-35); Albumin Level 3.9 g/dL (3.5-5.1); Alkaline Phosphatase 66 U/L (38-126); Anion Gap 6 mmol/L (8-16); Aspartate Amino Transferase 28 U/L (14-36); Bilirubin,Total 0.3 mg/dL (0.2-1.3); Blood Urea Nitrogen 25 mg/dL (7-17); Calcium 8.5 mg/dL (8.4-10.2); Carbon Dioxide 27 mmol/L (22-30); Chloride 106 mmol/L (98-107); Cholesterol 239 mg/dL (0-200); Estimated Glomerular Filt Rate 60; Glucose 124 mg/dL (65-110); HDL Direct 55 mg/dL; Potassium 3.6 mmol/L (3.4-5.0); Sodium 139 mmol/L (137-145); Triglycerides 93 mg/dL (<150)
[2022-01-21 13:20] LABS: Hemoglobin A1C 6.9 % (<5.7)
[2022-01-21 13:21] LABS: LDL Cholesterol Direct 127 mg/dL
== END 2022-01-21 12:15 | disposition home or self-care (01) ==
LOC: ANHLAB 12:19
PROVIDERS: PCP Internal Medicine; Visit Provider Nurse Practitioner
DX: E78.5 Hyperlipidemia, unspecified (principal); E11.9 Type 2 diabetes mellitus without complications
CPT/HCPCS: 36415; 80053; 80061; 83036

== ENCOUNTER 2022-02-21 12:08 | Outpatient (CLI) | payer MEDICARE, SELFPAY | END 2022-02-21 12:09 | disposition home or self-care (01) | LOC: ANHLAB 12:10 | PROVIDERS: PCP Internal Medicine; Visit Provider Internal Medicine Endocrinology, Diabetes & Metabolism | DX: E89.0 Postprocedural hypothyroidism (principal) | CPT/HCPCS: 36415; 84443 ==

== ENCOUNTER 2022-04-25 14:41 | Outpatient (CLI) | payer MEDICARE, OTHER, SELFPAY ==
--- NOTE | ~2022-04-25 | DEXA_ITS ---
Bone Density Report Name: UMAIR MCHUGH Age: 81 Sex: Female Ethnicity: Date of : 1940 Indication: postmenopausal; screening for osteoporosis; height loss; cancer; asthma or emphysema; hysterectomy; Referring Provider: PHYLLIS REDD Study: Bone densitometry was performed. Exam Date: April 25, 2022 Accession number: [id number] Bone Density: Region BMD T-score Z-score Classification AP Spine(L1, L2, L3) 1.025 0.1 2.7 Normal Femoral Neck (Left) 0.551 -2.7 -0.3 Osteoporosis Total Hip (Left) 0.836 -0.9 1.2 Normal Femoral Neck (Right) 0.609 -2.2 0.2 Osteopenia Total Hip (Right) 0.843 -0.8 1.3 Normal Total Hip Mean 0.839 -0.9 1.3 Normal World Health Organization criteria for BMD impression classify patients as: Normal (T-score at or above -1.0), Osteopenia (T-score between -1.0 and -2.5), or Osteoporosis (T-score at or below -2.5). 10-year Fracture Risk: FRAX not reported because: Some T-score for Spine Total or Hip Total or Femoral Neck at or below -2.5 Previous Exams: Region Exam Age BMD T-score BMD Change BMD Change Date g/cm2 vs Baseline vs Previous AP Spine (L1-L3) 04/25/2022 81 1.025 0.1 0.161 (18.6%)* 0.110 (12.0%)* 04/22/2021 80 0.915 -0.9 0.051 (5.9%)* 0.017 (1.9%) 05/22/2018 78 0.899 -1.1 0.034 (4.0%)* 0.034 (4.0%)* 01/18/2016 75 0.865 -1.4 Total Hip(Left) 04/25/2022 81 0.836 -0.9 0.044 (5.5%)* 0.014 (1.8%) 04/22/2021 80 0.821 -1.0 0.029 (3.7%)* -0.005 (-0.6%) 05/22/2018 78 0.826 -1.0 0.034 (4.3%)* 0.034 (4.3%)* 01/18/2016 75 0.792 -1.2 Total Hip(Right) 04/25/2022 81 0.843 -0.8 0.064 (8.3%)* 0.028 (3.5%)* 04/22/2021 80 0.815 -1.0 0.036 (4.6%)* -0.081 (-9.1%) 05/22/2018 78 0.896 -0.4 0.117 (15.0%)* 0.117 (15.0%)* 01/18/2016 75 0.779 -1.3 *Denotes significance at 95% confidence level, LSC for AP Spine = 0.022 g/cm2, LSC for Total Hip = 0.027 g/cm2 Clinical Information Provided by Patient: Has used the following medications: Prolia (i.e. denosumab), Vitamin D, Calcium Has the following medical conditions: Asthma or Emphysema, Cancer, Hysterectomy Patient maximum height was 58 Menopause Age: 36 No regular weight bearing exercise Drinks caffeinated beverages Onset of menses at age 13 Number of children 3 Impression: The patient has osteoporosis, based on the Left Femoral Neck T-score. No significant bone loss was observed.
== END 2022-04-25 14:42 | disposition home or self-care (01) ==
PROVIDERS: PCP Internal Medicine; Visit Provider Internal Medicine Endocrinology, Diabetes & Metabolism
DX: Z78.0 Asymptomatic menopausal state (principal); M81.0 Age-related osteoporosis without current pathological fracture; M85.851 Other specified disorders of bone density and structure, right thigh
CPT/HCPCS: 77080

== ENCOUNTER 2022-05-23 21:23 | Emergency (ER) | payer MEDICARE, OTHER, SELFPAY ==
[2022-05-23 21:26] VITALS: BP 107/70; PULSE 102; RESP 12; TEMP 36.4; O2SAT 100
--- NOTE | 2022-05-23 23:08 | ED.SKABFB ---
HPI - Skin/Abscess/Foreign Bdy General Chief complaint: Skin/Abscess/Foreign Body Stated complaint: rash Time Seen by Provider: 05/23/22 21:31 History of Present Illness HPI narrative: 82-year-old female presents the emergency room for evaluation of a rash to bilateral lower extremities has been present for several days. Patient states she has been trying [id number] anti-itch cream, which has provided her with good relief for several hours. Patient states that she also tried Benadryl which is not alleviating the itching. Patient denies any new medications, soaps detergents, environmental exposures. Related Data Home Medications Medication Instructions Recorded Confirmed aspirin 81 mg tablet,delayed 81 mg PO HS 07/25/19 05/09/22 release (Adult Low Dose Aspirin) candesartan 32 mg tablet (Atacand) 32 mg PO HS 10/05/19 05/09/22 docusate sodium 50 mg capsule 50 mg PO DAILY 02/10/20 05/09/22 (Stool Softener) albuterol sulfate 0.63 mg/3 mL 0.63 mg inhalation Q4-6H PRN 08/13/20 05/09/22 solution for nebulization Dyspnea calcium carbonate 200 mg-vitamin 1 cap PO DAILY 10/29/20 05/09/22 D3 10 mcg (400 unit) capsule Allergies Allergy/AdvReac Type Severity Reaction Status Date / Time codeine Allergy Mild Dizziness Verified 05/23/22 21:25 sulfamethoxazole Allergy Mild Nausea and Verified 05/23/22 21:25 Vomiting clopidogrel Allergy Unknown Rash Verified 05/23/22 21:25 tiotropium Allergy Unknown Hives / Verified 05/23/22 21:25 Red Face fluticasone Allergy Hives Verified 05/23/22 21:25 [From Advair Diskus] salmeterol Allergy Hives Verified 05/23/22 21:25 [From Advair Diskus] aspartame AdvReac Mild HEADACHE Verified 05/23/22 21:25 Review of Systems Review of Systems: CONSTITUTIONAL: Denies fever, chills, or sweats. EYES: Denies visual changes, redness, or discharge. ENT: Denies rhinorrhea, congestion, sore throat, or otalgia. CARDIOVASCULAR: Denies chest pain, palpitations, or edema. RESPIRATORY: Denies cough or dyspnea. GASTROINTESTINAL: Denies abdominal pain, nausea, vomiting, or diarrhea. GENITOURINARY: Denies dysuria or hematuria. SKIN: Reports rash or itching. MUSCULOSKELETAL: Denies back pain, joint pain, or myalgia. NEUROLOGIC: Denies headache, numbness, dizziness, or weakness. PSYCHIATRIC: Denies anxiety or depression. [facility] Past Medical History Medical History AAA (abdominal aortic aneurysm) Abdominal pain Adenomatous colon polyp Anxiety Arthritis Atherosclerotic heart disease of [place] coronary artery with angina pectoris Bloating Cataracts, bilateral Depression Epigastric pain Essential (primary) hypertension Gastro-esophageal reflux disease without esophagitis Gout Hypothyroidism, unspecified (04/05/19) Lung cancer Osteoporosis Overweight (09/15/15) Pure hypercholesterolemia Screening for breast cancer UTI (urinary tract infection) Surgical History Surgical History History of hysterectomy Hx of CABG Hx of cardiac catheterization Hx of thyroidectomy Status post aortic coarctation stent placement Family History Family History Father Patient's father is Family history of malignant neoplasm Mother Family history of tuberculosis Patient's mother is Sibling Patient's brother is in good health Other Family history of cardiovascular disease Malignant neoplasm of prostate Social History Social History Smoking packs per day: 1 Smoking cigarettes per day: 20.0 Years smoked: 40 Smoking pack-years: 40.00 Smoking status: Former smoker Tobacco type: cigarettes Second hand tobacco smoke exposure: No Smoking end date: 02/04/19 Alcohol intake: never Substance use: never Substance use type:
== END 2022-05-23 23:26 | disposition home or self-care (01) ==
PROVIDERS: Emergency Provider Nurse Practitioner Family; PCP Internal Medicine
DX: L30.9 Dermatitis, unspecified (principal); L50.9 Urticaria, unspecified; I10 Essential (primary) hypertension; E78.00 Pure hypercholesterolemia, unspecified; K21.9 Gastro-esophageal reflux disease without esophagitis; M10.9 Gout, unspecified; M81.0 Age-related osteoporosis without current pathological fracture; M19.90 Unspecified osteoarthritis, unspecified site; E89.0 Postprocedural hypothyroidism; Z85.118 Personal history of other malignant neoplasm of bronchus and lung; Z87.440 Personal history of urinary (tract) infections; Z86.010 Personal history of colon polyps; Z79.82 Long term (current) use of aspirin; Z95.1 Presence of aortocoronary bypass graft; Z95.5 Presence of coronary angioplasty implant and graft; Z87.891 Personal history of nicotine dependence
CPT/HCPCS: 99283

== ENCOUNTER 2022-07-11 10:19 | Outpatient (CLI) | payer MEDICARE, OTHER, SELFPAY ==
[2022-07-11 11:09] LABS: Hematocrit 38.3 % (37.0-47.0); Hemoglobin 12.4 g/dL (12.0-15.0); Mean Corpuscular HGB Conc 32.4 g/dl (32-36); Mean Corpuscular Hemoglobin 28.2 pg (26-34); Mean Platelet Volume 9.1 fl (7.4-10.4); Platelet Count Result 275 k/mm3 (150-375); Red Cell Distribution Width 15.6 % (11.5-14.5); White Blood Count 6.3 K/mm3 (4.5-10.0)
[2022-07-11 11:18] LABS: Hemoglobin A1C 7.3 % (<5.7)
[2022-07-11 11:24] LABS: Alanine Aminotransferase 31 U/L (6-35); Albumin Level 4.4 g/dL (3.5-5.1); Alkaline Phosphatase 80 U/L (38-126); Anion Gap 9 mmol/L (8-16); Aspartate Amino Transferase 36 U/L (14-36); Bilirubin,Total 0.3 mg/dL (0.2-1.3); Blood Urea Nitrogen 20 mg/dL (7-17); Carbon Dioxide 26 mmol/L (22-30); Chloride 100 mmol/L (98-107); Cholesterol 250 mg/dL (0-200); Estimated Glomerular Filt Rate 48; Glucose 128 mg/dL (65-110); HDL Direct 58 mg/dL; Potassium 3.6 mmol/L (3.4-5.0); Sodium 135 mmol/L (137-145); Triglycerides 125 mg/dL (<150)
[2022-07-11 11:35] LABS: LDL Cholesterol Direct 111 mg/dL
[2022-07-11 11:51] LABS: Creatinine Urine 141.4 mg/dL
[2022-07-11 11:56] LABS: MALB Creatinine Ratio 78.6 mg/g (0-30); Microalbumin Urine Random 111.1 mg/L (0-16.7)
[2022-07-14 23:54] LABS: Vitamin D 1,25 (OH)2 Total 84 pg/mL (18-72); Vitamin D2 1,25 (OH)2 <8 pg/mL; Vitamin D3 1,25 (OH)2 84 pg/mL
== END 2022-07-11 10:20 | disposition home or self-care (01) ==
LOC: ANHLAB 10:21
PROVIDERS: PCP Internal Medicine; Visit Provider Internal Medicine
DX: E03.9 Hypothyroidism, unspecified (principal); I10 Essential (primary) hypertension; R53.82 Chronic fatigue, unspecified; E11.9 Type 2 diabetes mellitus without complications; E78.5 Hyperlipidemia, unspecified; E55.9 Vitamin D deficiency, unspecified
CPT/HCPCS: 36415; 80053; 80061; 82043; 82652; 83036; 84439; 84443; 85027

== ENCOUNTER 2022-10-15 08:21 | Outpatient (CLI) | payer MEDICARE, OTHER, SELFPAY ==
[2022-10-15 09:20] LABS: Hemoglobin A1C 6.2 % (<5.7)
[2022-10-15 09:21] LABS: Alanine Aminotransferase 24 U/L (6-35); Albumin Level 4.4 g/dL (3.5-5.1); Alkaline Phosphatase 64 U/L (38-126); Anion Gap 8 mmol/L (8-16); Aspartate Amino Transferase 34 U/L (14-36); Bilirubin,Total 0.4 mg/dL (0.2-1.3); Blood Urea Nitrogen 35 mg/dL (7-17); Calcium 9.3 mg/dL (8.4-10.2); Carbon Dioxide 28 mmol/L (22-30); Chloride 103 mmol/L (98-107); Cholesterol 222 mg/dL (0-200); Creatine Kinase 233 U/L (30-135); Estimated Glomerular Filt Rate 31; Glucose 105 mg/dL (65-110); HDL Direct 60 mg/dL; Sodium 139 mmol/L (137-145); Triglycerides 151 mg/dL (<150); Uric Acid 9.3 mg/dL (2.5-7.5)
[2022-10-15 09:31] LABS: LDL Cholesterol Direct 86 mg/dL
[2022-10-15 09:37] LABS: MALB Creatinine Ratio 18.6 mg/g (0-30); Microalbumin Urine Random 22.9 mg/L (0-16.7)
[2022-10-15 10:33] LABS: Vitamin D 25 Hydroxy 68.8 ng/mL
== END 2022-10-15 08:22 | disposition home or self-care (01) ==
PROVIDERS: Internal Medicine; Nurse Practitioner; PCP Internal Medicine; Visit Provider Specialist
DX: R53.82 Chronic fatigue, unspecified (principal); E11.9 Type 2 diabetes mellitus without complications; M10.9 Gout, unspecified; E89.0 Postprocedural hypothyroidism; E55.9 Vitamin D deficiency, unspecified; E78.2 Mixed hyperlipidemia
CPT/HCPCS: 36415; 80053; 80061; 82043; 82306; 82550; 82607; 83036; 84443; 84550

== ENCOUNTER 2023-02-27 14:30 | Outpatient (CLI) | payer MEDICARE, OTHER, SELFPAY ==
[2023-02-27 15:37] LABS: Alanine Aminotransferase 23 U/L (6-35); Albumin Level 4.3 g/dL (3.5-5.1); Alkaline Phosphatase 56 U/L (38-126); Anion Gap 8 mmol/L (8-16); Aspartate Amino Transferase 34 U/L (14-36); Bilirubin,Total 0.3 mg/dL (0.2-1.3); Blood Urea Nitrogen 23 mg/dL (7-17); Calcium 8.4 mg/dL (8.4-10.2); Carbon Dioxide 26 mmol/L (22-30); Chloride 103 mmol/L (98-107); Estimated Glomerular Filt Rate 48; Glucose 99 mg/dL (65-110); Potassium 4.2 mmol/L (3.4-5.0); Sodium 137 mmol/L (137-145)
[2023-02-27 15:41] LABS: Appearance Urine Cloudy (Clear); Bacteria Urine 4+ /hpf; Bilirubin Urine Negative (Negative); Color Urine Yellow (Yellow); Glucose Urine UA Negative (Negative); Hyaline Casts Urine Present /lpf; Ketones Urine Negative (Negative); Leukocyte Esterase Ur 3+ LEU/UL (NEGATIVE); Nitrate Urine Negative (Negative); Protein Urine 1+ mg/dL (Negative); RBC Urine 0-2 /hpf (0-2); Specific Grav Ur 1.018 (1.001-1.035); Squamous Epithelial Cell Urine None seen /hpf (Few); Urobilinogen Urine 0.2 mg/dL (<2.0); WBC Urine >100 /hpf (0-3)
[2023-02-27 15:52] LABS: Add Urine Microscopic? YES
[2023-02-27 21:32] LABS: Hemoglobin A1C 6.2 % (<5.7)
== END 2023-02-27 14:31 | disposition home or self-care (01) ==
PROVIDERS: PCP Family Medicine; Visit Provider Nurse Practitioner Family
DX: R10.9 Unspecified abdominal pain (principal); E78.5 Hyperlipidemia, unspecified; R39.9 Unspecified symptoms and signs involving the genitourinary system; E11.9 Type 2 diabetes mellitus without complications
CPT/HCPCS: 36415; 80053; 81001; 83036; 87077; 87086; 87186

== ENCOUNTER 2023-04-08 10:48 | Outpatient (CLI) | payer MEDICARE, OTHER, SELFPAY ==
--- NOTE | ~2023-04-08 | MM_ITS ---
EXAMINATION: MM screening caprice BI w veronica HISTORY: Screening mammogram TECHNIQUE: Craniocaudal and mediolateral oblique 3-D tomosynthesis images were obtained and synthetic 2-D images were generated. CAD analysis was submitted and interpreted. COMPARISON: 10/27/2021, 10/15/2020, 08/20/2019 BREAST PARENCHYMAL COMPOSITION:There are scattered areas of fibroglandular density. FINDINGS: Stable circumscribed low-density mass of the upper, outer left breast. No suspicious mass, calcification, or architectural distortion are identified in either breast to suggest malignancy. The re has been no suspicious interval change. IMPRESSION: No mammographic evidence of malignancy. Recommend routine screening mammography in one year. BI-RADS Category 2: Benign finding(s). Reviewed, dictated and finalized at [facility] [place].
== END 2023-04-08 10:49 | disposition home or self-care (01) ==
LOC: ANHIMG 10:51
PROVIDERS: PCP Family Medicine; Visit Provider Family Medicine
DX: Z12.31 Encounter for screening mammogram for malignant neoplasm of breast (principal)
CPT/HCPCS: 77063; 77067

== ENCOUNTER 2023-05-04 15:33 | Outpatient (CLI) | payer MEDICARE, OTHER, SELFPAY ==
--- NOTE | ~2023-05-04 | DEXA_ITS ---
Bone Density Report Name: UMAIR MCHUGH Age: 82 Sex: Female Ethnicity: Date of : 1940 Indication: monitoring treatment; height loss; cancer; hysterectomy; Referring Provider: PHYLLIS REDD Study: Bone densitometry was performed. Exam Date: May 04, 2023 Accession number: [id number] Bone Density: Region BMD T-score Z-score Classification AP Spine(L1-L4) 0.958 -0.8 1.9 Normal Femoral Neck (Left) 0.515 -3.0 -0.6 Osteoporosis Total Hip (Left) 0.808 -1.1 1.1 Osteopenia Femoral Neck (Right) 0.575 -2.5 -0.1 Osteoporosis Total Hip (Right) 0.804 -1.1 1.0 Osteopenia Total Hip Mean 0.806 -1.1 1.1 Osteopenia World Health Organization criteria for BMD impression classify patients as: Normal (T-score at or above -1.0), Osteopenia (T-score between -1.0 and -2.5), or Osteoporosis (T-score at or below -2.5). 10-year Fracture Risk: FRAX not reported because: Some T-score for Spine Total or Hip Total or Femoral Neck at or below -2.5 Treated for osteoporosis Previous Exams: Region Exam Age BMD T-score BMD Change BMD Change Date g/cm2 vs Baseline vs Previous AP Spine (L1-L4) 05/04/2023 82 0.958 -0.8 0.053 (5.8%)* 0.012 (1.2%) 05/22/2018 78 0.946 -0.9 0.041 (4.6%)* 0.041 (4.6%)* 01/18/2016 75 0.905 -1.3 Total Hip(Left) 05/04/2023 82 0.808 -1.1 0.016 (2.0%) -0.028 (-3.3%) 04/25/2022 81 0.836 -0.9 0.044 (5.5%)* 0.014 (1.8%) 04/22/2021 80 0.821 -1.0 0.029 (3.7%)* -0.005 (-0.6%) 05/22/2018 78 0.826 -1.0 0.034 (4.3%)* 0.034 (4.3%)* 01/18/2016 75 0.792 -1.2 Total Hip(Right) 05/04/2023 82 0.804 -1.1 0.026 (3.3%) -0.039 (-4.6%) 04/25/2022 81 0.843 -0.8 0.064 (8.3%)* 0.028 (3.5%)* 04/22/2021 80 0.815 -1.0 0.036 (4.6%)* -0.081 (-9.1%) 05/22/2018 78 0.896 -0.4 0.117 (15.0%)* 0.117 (15.0%)* 01/18/2016 75 0.779 -1.3 *Denotes significance at 95% confidence level, LSC for AP Spine = 0.022 g/cm2, LSC for Total Hip = 0.027 g/cm2 Clinical Information Provided by Patient: Is being treated for osteoporosis Has used the following medications: Prolia (i.e. denosumab), Calcium Has the following medical conditions: Cancer, Hysterectomy Patient maximum height was 58 Menopause Age: 36 No regular weight bearing exercise Drinks caffeinated beverages Onset of menses at age 14 Number of children 3 Impression: The patient has osteoporosis, based on the
== END 2023-05-04 15:34 | disposition home or self-care (01) ==
PROVIDERS: PCP Family Medicine; Visit Provider Internal Medicine Endocrinology, Diabetes & Metabolism
DX: M81.0 Age-related osteoporosis without current pathological fracture (principal); M85.852 Other specified disorders of bone density and structure, left thigh; M85.851 Other specified disorders of bone density and structure, right thigh
CPT/HCPCS: 77080

== ENCOUNTER 2023-07-08 11:43 | Outpatient (CLI) | payer MEDICARE, OTHER, SELFPAY ==
[2023-07-08 12:05] LABS: Basophils Percent Auto 0.5 % (0.2-1.2); Eosinophils Absolute Auto 0.2 K/mm3 (0-0.3); Eosinophils Percent Auto 3.4 % (0-4.4); Hemoglobin 11.5 g/dL (12.0-15.0); Immature Granulocyte Absolute 0.01 K/mm3 (0.00-0.031); Immature Granulocyte Percent A 0.2 % (0-0.5); Lymphocytes Absolute Auto 1.01 K/mm3 (0.9-3.2); Lymphocytes Percent Auto 23.1 % (18.3-44.2); Mean Corpuscular HGB Conc 31.1 g/dl (32-36); Mean Platelet Volume 9.2 fl (7.4-10.4); Monocytes Absolute Auto 0.5 K/mm3 (0.1-0.6); Monocytes Percent Auto 11.2 % (2.6-8.5); Neutrophils Absolute Auto 2.7 K/mm3 (1.3-6.7); Neutrophils Percent Auto 61.6 % (45.5-73.1); Platelet Count Result 211 k/mm3 (150-375); Red Blood Count 4.11 M/mm3 (4.2-5.4); White Blood Count 4.4 K/mm3 (4.5-10.0)
[2023-07-08 12:12] LABS: Hemoglobin A1C 5.9 % (<5.7)
[2023-07-08 12:15] LABS: Alanine Aminotransferase 22 U/L (6-35); Albumin Level 4.4 g/dL (3.5-5.1); Alkaline Phosphatase 66 U/L (38-126); Anion Gap 11 mmol/L (8-16); Aspartate Amino Transferase 37 U/L (14-36); Bilirubin,Total 0.5 mg/dL (0.2-1.3); Blood Urea Nitrogen 19 mg/dL (7-17); Calcium 8.8 mg/dL (8.4-10.2); Carbon Dioxide 24 mmol/L (22-30); Chloride 104 mmol/L (98-107); Cholesterol 231 mg/dL (0-200); Estimated Glomerular Filt Rate 53; Glucose 110 mg/dL (65-110); HDL Direct 83 mg/dL; Potassium 4.1 mmol/L (3.4-5.0); Sodium 139 mmol/L (137-145); Triglycerides 69 mg/dL (<150)
[2023-07-08 12:21] LABS: Creatinine Urine 118.9 mg/dL
[2023-07-08 12:26] LABS: LDL Cholesterol Direct 88 mg/dL
[2023-07-08 12:43] LABS: MALB Creatinine Ratio 255.6 mg/g (0-30); Microalbumin Urine Random 303.9 mg/L (0-16.7)
== END 2023-07-08 11:44 | disposition home or self-care (01) ==
LOC: ANHLAB 11:46
PROVIDERS: PCP Nurse Practitioner Family; Referring Provider Nurse Practitioner Family; Visit Provider Internal Medicine Endocrinology, Diabetes & Metabolism
DX: E89.0 Postprocedural hypothyroidism (principal); E11.9 Type 2 diabetes mellitus without complications
CPT/HCPCS: 36415; 80053; 80061; 82043; 83036; 84439; 84443; 85025

== ENCOUNTER 2023-08-09 14:53 | Outpatient (CLI) | payer MEDICARE, OTHER, SELFPAY ==
[2023-08-09 15:48] LABS: Basophils Percent Auto 0.5 % (0.2-1.2); Eosinophils Absolute Auto 0.1 K/mm3 (0-0.3); Eosinophils Percent Auto 2.5 % (0-4.4); Hematocrit 37.2 % (37.0-47.0); Hemoglobin 11.5 g/dL (12.0-15.0); Immature Granulocyte Absolute 0.01 K/mm3 (0.00-0.031); Immature Granulocyte Percent A 0.2 % (0-0.5); Mean Corpuscular HGB Conc 30.9 g/dl (32-36); Mean Corpuscular Hemoglobin 27.5 pg (26-34); Mean Platelet Volume 9.1 fl (7.4-10.4); Monocytes Absolute Auto 0.6 K/mm3 (0.1-0.6); Monocytes Percent Auto 11.2 % (2.6-8.5); Neutrophils Absolute Auto 3.5 K/mm3 (1.3-6.7); Neutrophils Percent Auto 62.6 % (45.5-73.1); Platelet Count Result 220 k/mm3 (150-375); Red Blood Count 4.18 M/mm3 (4.2-5.4); Red Cell Distribution Width 15.7 % (11.5-14.5); White Blood Count 5.7 K/mm3 (4.5-10.0)
[2023-08-09 15:50] LABS: Appearance Urine Turbid (Clear); Bacteria Urine 4+ /hpf; Bilirubin Urine Negative (Negative); Color Urine Dark Yellow (Yellow); Glucose Urine UA Negative (Negative); Ketones Urine Trace mg/dL (Negative); Leukocyte Esterase Ur 3+ LEU/UL (NEGATIVE); Need Manual Microscopic Reviewed; Nitrate Urine Negative (Negative); Protein Urine 1+ mg/dL (Negative); RBC Urine 0-2 /hpf (0-2); Specific Grav Ur 1.019 (1.001-1.035); Squamous Epithelial Cell Urine None seen /hpf (Few); WBC Urine >100 /hpf (0-3)
[2023-08-09 15:52] LABS: Add Urine Microscopic? YES
[2023-08-09 16:01] LABS: Alanine Aminotransferase 19 U/L (6-35); Albumin Level 4.2 g/dL (3.5-5.1); Alkaline Phosphatase 63 U/L (38-126); Anion Gap 9 mmol/L (8-16); Aspartate Amino Transferase 36 U/L (14-36); Bilirubin,Total 0.5 mg/dL (0.2-1.3); Blood Urea Nitrogen 24 mg/dL (7-17); Calcium 8.4 mg/dL (8.4-10.2); Carbon Dioxide 25 mmol/L (22-30); Chloride 102 mmol/L (98-107); Estimated Glomerular Filt Rate 43; Glucose 104 mg/dL (65-110); Sodium 136 mmol/L (137-145)
== END 2023-08-09 14:54 | disposition home or self-care (01) ==
PROVIDERS: PCP Nurse Practitioner Family; Visit Provider Nurse Practitioner Family
DX: N39.0 Urinary tract infection, site not specified (principal); I10 Essential (primary) hypertension
CPT/HCPCS: 36415; 80053; 81001; 85025; 87077; 87086; 87186

== ENCOUNTER 2023-09-12 12:24 | Outpatient (CLI) | payer MEDICARE, OTHER, SELFPAY ==
[2023-09-12 13:27] LABS: Appearance Urine Clear (Clear); Bacteria Urine None Seen /hpf; Bilirubin Urine Negative (Negative); Blood Urine Negative (Negative); Color Urine Dark Yellow (Yellow); Glucose Urine UA Negative (Negative); Ketones Urine Trace mg/dL (Negative); Leukocyte Esterase Ur Trace LEU/UL (NEGATIVE); Mucus Urine Present /lpf; Nitrate Urine Negative (Negative); Non Pathogenic Casts >20; Protein Urine 1+ mg/dL (Negative); RBC Urine 0-2 /hpf (0-2); Squamous Epithelial Cell Urine None seen /hpf (Few); Urobilinogen Urine 0.2 mg/dL (<2.0); WBC Urine 0-5 /hpf (0-3)
[2023-09-12 14:03] LABS: Add Urine Microscopic? YES
== END 2023-09-12 12:25 | disposition home or self-care (01) ==
PROVIDERS: PCP Nurse Practitioner Family; Visit Provider Nurse Practitioner Family
DX: R39.9 Unspecified symptoms and signs involving the genitourinary system (principal); R10.9 Unspecified abdominal pain
CPT/HCPCS: 81001; 87077; 87086; 87186

== ENCOUNTER 2024-01-04 14:50 | Outpatient (CLI) | payer MEDICARE, OTHER, SELFPAY ==
[2024-01-04 15:19] LABS: Basophils Percent Auto 0.7 % (0.2-1.2); Eosinophils Absolute Auto 0.2 K/mm3 (0-0.3); Eosinophils Percent Auto 3.7 % (0-4.4); Hematocrit 36.3 % (37.0-47.0); Hemoglobin 11.5 g/dL (12.0-15.0); Immature Granulocyte Absolute 0.01 K/mm3 (0.00-0.031); Immature Granulocyte Percent A 0.2 % (0-0.5); Lymphocytes Absolute Auto 1.07 K/mm3 (0.9-3.2); Lymphocytes Percent Auto 24.5 % (18.3-44.2); Mean Corpuscular HGB Conc 31.7 g/dl (32-36); Mean Corpuscular Hemoglobin 27.7 pg (26-34); Mean Corpuscular Volume 87.5 fl (80-100); Mean Platelet Volume 9.2 fl (7.4-10.4); Monocytes Absolute Auto 0.4 K/mm3 (0.1-0.6); Monocytes Percent Auto 10.1 % (2.6-8.5); Neutrophils Absolute Auto 2.7 K/mm3 (1.3-6.7); Neutrophils Percent Auto 60.8 % (45.5-73.1); Platelet Count Result 230 k/mm3 (150-375); Red Blood Count 4.15 M/mm3 (4.2-5.4); Red Cell Distribution Width 16.2 % (11.5-14.5); White Blood Count 4.4 K/mm3 (4.5-10.0)
[2024-01-04 18:59] LABS: Iron 61 ug/dL (37-170)
[2024-01-04 19:09] LABS: Percent Iron Saturation 20 % (20-50)
[2024-01-04 19:10] LABS: Alanine Aminotransferase 21 U/L (6-35); Albumin Level 4.5 g/dL (3.5-5.1); Alkaline Phosphatase 59 U/L (38-126); Anion Gap 6 mmol/L (4-12); Aspartate Amino Transferase 36 U/L (14-36); Bilirubin,Total 0.5 mg/dL (0.2-1.3); Blood Urea Nitrogen 18 mg/dL (7-17); Calcium 8.8 mg/dL (8.4-10.2); Carbon Dioxide 26 mmol/L (22-30); Chloride 104 mmol/L (98-107); Estimated Glomerular Filt Rate 53; Glucose 116 mg/dL (65-110); Magnesium 2.2 mg/dL (1.6-2.3); Potassium 4.1 mmol/L (3.4-5.0); Sodium 136 mmol/L (137-145)
[2024-01-04 19:40] LABS: Thyroid Stimulating Hormone 0.992 uIU/mL (0.465-4.680)
[2024-01-04 20:16] LABS: Folic Acid 14.1 ng/mL (2.76->20)
== END 2024-01-04 14:51 | disposition home or self-care (01) ==
LOC: ANHLAB 14:55
PROVIDERS: PCP Nurse Practitioner Family; Visit Provider Nurse Practitioner Family
DX: C34.92 Malignant neoplasm of unspecified part of left bronchus or lung (principal); E78.5 Hyperlipidemia, unspecified; E11.9 Type 2 diabetes mellitus without complications; E21.5 Disorder of parathyroid gland, unspecified; I10 Essential (primary) hypertension; I25.119 Atherosclerotic heart disease of native coronary artery with unspecified angina pectoris; J44.9 Chronic obstructive pulmonary disease, unspecified; N39.0 Urinary tract infection, site not specified; D64.9 Anemia, unspecified; E87.6 Hypokalemia; R53.83 Other fatigue; R39.9 Unspecified symptoms and signs involving the genitourinary system; I71.40 Abdominal aortic aneurysm, without rupture, unspecified
CPT/HCPCS: 36415; 80053; 82607; 82746; 83036; 83540; 83550; 83735; 84425; 84443; 85025; 87077; 87086; 87088; 87181

== ENCOUNTER 2024-03-29 08:52 | Outpatient (RCR) | payer MEDICARE, OTHER, SELFPAY ==
[2024-03-30 13:26] LABS: Creatinine Urine 39.6 mg/dL
[2024-03-30 19:34] LABS: Creatinine 24 Hour Urine 0.7 gm/24 (0.8-1.8); Total Volume 24 Hour Urine 2000 ml
[2024-04-02 11:05] LABS: Total Volume 2000 mL
== END 2024-03-29 09:00 | disposition home or self-care (01) ==
LOC: ANHLAB 08:52
PROVIDERS: PCP Nurse Practitioner Family; Visit Provider Internal Medicine Endocrinology, Diabetes & Metabolism
DX: M81.0 Age-related osteoporosis without current pathological fracture (principal)
CPT/HCPCS: 81050; 82340; 82570

== ENCOUNTER 2024-05-22 13:56 | Outpatient (CLI) | payer MEDICARE, OTHER, SELFPAY ==
--- NOTE | ~2024-05-22 | MM_ITS ---
EXAMINATION: MM screening caprice BI w veronica HISTORY: Screening TECHNIQUE: Craniocaudal and mediolateral oblique 3-D tomosynthesis images were obtained and synthetic 2-D images were generated. CAD analysis was submitted and interpreted. COMPARISON: Comparison to multiple prior studies sequentially, with oldest reviewed study dated 02/2017. BREAST PARENCHYMAL COMPOSITION: Not dense: There are scattered areas of fibroglandular density. FINDINGS: There is no evidence of suspicious mass, calcification, or architectural distortion to sugg est malignancy in either breast. There has been no suspicious interval change. IMPRESSION: 1. No mammographic evidence of malignancy. 2. Recommend routine screening mammography in one year. BI-RADS Category 1: Negative Reviewed, dictated and finalized at location B.
== END 2024-05-22 13:57 | disposition home or self-care (01) ==
LOC: ANHIMG 13:58
PROVIDERS: PCP Nurse Practitioner Family; Visit Provider Nurse Practitioner Family
DX: Z12.31 Encounter for screening mammogram for malignant neoplasm of breast (principal)
CPT/HCPCS: 77063; 77067

== ENCOUNTER 2024-06-26 14:06 | Outpatient (CLI) | payer MEDICARE, OTHER, SELFPAY ==
--- NOTE | ~2024-06-26 | XR_ITS ---
EXAMINATION: XR knee RT min 4V DATE: 06/26/2024 14:29 INDICATION: Right knee pain. TECHNIQUE: 4 views of right knee including standing views were obtained. COMPARISON: None. FINDINGS: There is varus angulation at the knee. No fracture. There is mild osteoarthritis of medial and patellofemoral compartments. No knee joint effusion. IMPRESSION: 1. Mild right knee osteoarthritis. Reviewed, dictated and finalized at location A. [employer]
== END 2024-06-26 14:07 | disposition home or self-care (01) ==
PROVIDERS: PCP Nurse Practitioner Family; Visit Provider Nurse Practitioner Family
DX: M17.11 Unilateral primary osteoarthritis, right knee (principal)
CPT/HCPCS: 73564

== ENCOUNTER 2024-09-07 10:43 | Outpatient (CLI) | payer MEDICARE, OTHER, SELFPAY ==
--- OUTSIDE RECORDS SUMMARY | 2024-09-07 10:47 | XMS_ITS | Data Portability ---
Author Organization [place] - [facility] OFFICE Address [address] [place] [address] Care Team Providers Care Fbi Field Agent Name Role Phone JOSIANE STEWARD Primary Care Provider [phone] Assessment No assessment recorded. Plan of Treatment Reminders Order Date Submit Date Provider Last Modified By Organization Details Last Modified Time Details Appointments ESTABLISH ED PATIENT DETAILED 2024 02:30P M Adryan Ramachandran i, MD Not available Not available Not available Lab None recorded. Referral None recorded. Procedures None recorded. Surgeries None recorded. Imaging None recorded. Medication Orders meclizine 25 mg tablet 2022 023 [id number], [address], [place], [place], [id number], 08/18/2022 12:23:46 Patient TargetsNo targets recorded. Patient Instructions Encounter Date Encounter Id Patient Instructions Last Modified By Organization Details Last Modified Time 08/18/2022 [id number] Exercise advised Low cholesterol diet advised Low sodium diet advised. [email or web address] Not available 08/18/2022 12:23:28 03/12/2024 [id number] Exercise advised Low cholesterol diet advised Low sodium diet advised. [email or web address] Not available 03/12/2024 17:29:55 Reason for Referral None Reported. Results Created Date Observation Date Name Description Value Unit Range Abnormal Flag Note LastModifiedBy Organization Detail LastModifiedTime 02/24/2002/21/2022 negrita folwer am No observ ation record ed. [email or web address] Not Available 2021 12:13:39 08/19/19 23 08/18/2022 negrita flower am No observ ation record ed. [email or web address] Not Available 2022 10:52:37 08/16/19 24 08/15/2023 elect rocar diogr am No observ ation record ed. Not Available 2023 16:28:40 09/11/19 24 09/05/2023 US, doppl er, arter ial No observ ation record ed. [email or web address] Not Available 2023 10:23:40 09/19/19 24 09/12/2023 US, echoc ardio gram No observ ation record ed. [email or web address] Not Available 2023 10:22:37 02/28/20 24 11/14/2023 MRI, brain , w/o contr ast No observ ation record ed. Not Available 2023 14:00:20 03/14/20 24 03/12/2024 elect rocar diogr am No observ ation record ed. Not Available 2023 20:25:57 05/28/20 24 05/09/2024 CT, angio gram, chest + abdom en + pelvi s, w/wo contr ast No observ ation record ed. Not Available 2023 17:06:47 Result Notes Documentation Provider Name and Address Organization Details Recorded Time Ck (creatine Kinase) Isoenzymes, Serum : CK 23: 233 Sanjeev Raphael [facility] [place] - [facility] 02/03/2023 07:16:04 Problems Name Problem SNOMED Code Status Onset Date Resolution Date Notes Provider Name and Address Organization Details Recorded Time Dyspnea on exertion 02821675 Active 2018 Not Available [facility] 3 18:03:57 Pre-surgery testing Active 2018 Not Available [facility] 3 18:03:57 Coronary arteriosclero sis 92668225 Active 2018 Not Available [facility] 3 18:03:56 Essential hypertension 16558949 Active 2018 Not Available [facility] 3 18:03:57 Carcinoma of female breast 983369829 Active 2018 Not Available [facility] 3 18:03:57 Family history of coronary arteriosclero sis 392315053 Active 2018 Not Available [facility] 3 18:03:56 Malignant tumor of lung 620987035 Active 2018 Not Available [facility] 3 18:03:57 Angina pectoris 281736459 Active 2019 Not Available [facility] 3 18:03:57 Stented coronary artery 409634327 Active 2019 Not Available [facility] 3 18:03:57 Intermittent claudication 16324487 Active 2019 Not Available [facility] 3 18:03:57 Dyslipidemia 773308829 Active 2019 Not Available [facility] 3 18:03:57 Notes:Has Lung mass, LL lobe . Needs surgical pre-auth for Dr. Argueta. Problem Notes None recorded. Procedures Surgical History None recorded. Imaging Results Imaging Date Name Status LastModified by Organization Details LastModified Time 02/21/2022 electrocardiogram completed Informa tion not available 02/23/2022 12:13:39 08/18/2022 electrocardiogram completed Informa tion not available 08/19/2022 10:52:37 08/15/2023 electrocardiogram completed Informa tion not available 08/17/2023 16:28:40 09/05/2023 US, doppler, arterial completed Information not available 03/10/2024 10:23:40 09/12/2023 US, echocardiogram completed Inform ation not available 03/10/2024 10:22:37 11/14/2023 MRI, brain, w/o contrast completed Information not available 02/28/2024 14:00:20 03/12/2024 electrocardiogram completed Informa tion not available 03/14/2024 20:25:57 05/09/2024 CT, angiogram, chest + abdomen + pelvis, w/wo contrast completed Information not available 05/28/2024 17:06:47 Procedure Notes None recorded. Medical Equipment None Reported. Allergies Allergen ID Allergen Name Allergen Category Reaction Reaction Severity Criticality Documentation Date Start Date Code Code System Note Provider Name and Address Organization Details Recorded Time 7199 clopidogr el medicatio n Not available Not available Not available 10/26/2018 77334 RxNorm Sanjeev Raphael [facility] [place] [place] - [facility] 9 09:45:21 Medications Name Sig Start Date Stop Date Status Note LastModified by Organization Details LastModified Time metformin 500 mg tablet 1 tablet once day 08/15 completed Not Available Not Available Not Available potassium chloride ER 10 mEq capsule,e xtended release 08/21 completed Not Available Not Available Not Available prednison e 10 mg tablet 08/21 completed Not Available Not Available Not Available Toprol XL 25 mg tablet,ex tended release Take 0.5 tablets every day by oral route. 09/22 completed Pt is no more on this medicati on 04/23/20 20 sm Not Available Not Available Not Available torsemide 20 mg tablet 1 tablet once a day 08/15 completed Not Available Not Available Not Available azithromy sophie 250 mg tablet 08/21 completed Not Available Not Available Not Available valacyclo vir 1 gram tablet TAKE 1 TABLET BY MOUTH EVERY 8 HOURS active Not Available Not Available No t Available hydrocodo ne 5 mg-acetam inophen 325 mg tablet Take 1 tablet every 6 hours by oral route. 10/29 completed Not Available Not Available Not Available bacitraci n 500 unit/gram eye ointment APPLY SMALL AMOUNT TO SURROUND ING AREA OF RIGHT EYE THREE TIMES DAILY active Not Available Not Available No t Available ondansetr on HCl 8 mg tablet active Not Available Not Available No t Available famotidin e 40 mg tablet Take 1 mg every day by oral route. active Not Available Not Available No t Available potassium chloride ER 10 mEq tablet,ex tended release 1 tablet once a day 08/15 completed Not Available Not Available Not Available amlodipin e 5 mg tablet 1 tablet once a day active Not Available Not Available No t Available prochlorp erazine maleate 10 mg tablet active Not Available Not Available Not Available ciproflox acin 500 mg tablet TAKE 1 TABLET BY MOUTH EVERY 12 HOURS active Not Available Not Available No t Available doxycycli ne monohydra te 100 mg tablet 08/18 completed Not Available Not Available Not Available tramadol 50 mg tablet TAKE 1 TO 2 TABLETS BY MOUTH EVERY 6 HOURS NEEDED FOR PAIN active Not Available Not Available No t Available triamcino lone acetonide 0.1 % topical cream active Not Available Not Available Not Available vancomyci n 125 mg capsule TAKE 1 CAPSULE BY MOUTH DAILY. CONTINUE DUNTIL 7 DAYS AFTER FINISHIN G ANTIBIOT ICS active Not Available Not Available No t Available lidocaine -prilocai ne 2.5 %-2.5 % topical cream APPLY TOPICALL Y TO THE AFFECTED AREA NEEDED FOR PAIN active Not Available Not Available No t Available levothyro xine 75 mcg tablet Take 1 tablet every day by oral route. active Not Available Not Available No t Available potassium chloride ER 20 mEq tablet,ex tended release(p art/cryst ) TAKE 2 TABLETS BY MOUTH DAILY FOR 1 DAYS THEN TAKE 1 TABLET BY MOUTH DAILY FOR 6 DAYS 08/15 completed Not Available Not Available Not Available clindamyc in 1 % topical gel APPLY TOPICALL Y TO THE AFFECTED AREA TWICE DAILY 03/10 completed Not Available Not Available Not Available meclizine 25 mg tablet TAKE 1 TABLET BY MOUTH THREE TIMES DAILY active Not Available Not Available No t Available amlodipin e 10 mg tablet Take 1 tablet every day by oral route. 08/18 completed 0.5 tablet bid 12/28/20 Not Available Not Available Not Available doxycycli ne monohydra te 100 mg capsule active Not Available Not Available Not Available cephalexi n 500 mg capsule TAKE 1 CAPSULE BY MOUTH EVERY 12 HOURS active Not Available Not Available No t Available simvastat in 20 mg tablet Take 1 tablet every day by oral route. 08/21 completed Not Available Not Available Not Available tacrolimu s 0.1 % topical ointment RUB IN WELL TWICE DAILY TO THE AFFECTED AREA active Not Available Not Available No t Available dexametha sone 4 mg tablet active Not Available Not Available Not Available metoprolo l tartrate 50 mg tablet BID 10/29 completed Not Available Not Available Not Available hydrochlo rothiazid e 12.5 mg capsule TAKE 1 CAPSULE BY MOUTH EVERY DAY 12/28 completed not every day 12/28/20 Not Available Not Available Not Available nitroglyc kashif 0.4 mg sublingua l tablet ONE TABLET UNDER TONGUE NEEDED FOR CHEST PAIN active Not Available Not Available No t Available candesart an 32 mg tablet TAKE 1 TABLET DAILY 2022 active Not Available Not Available Not Avai lable folic acid 1 mg tablet 08/18 completed Not Available Not Available Not Available mometason e 0.1 % topical ointment APPLY TO AFFECTED AREA(S) TWICE A DAY 03/10 completed Not Available Not Available Not Available gabapenti n 100 mg capsule 100 MG BY MOUTH TWICE DAILY active Not Available Not Available No t Available estradiol 0.01% (0.1 mg/gram) vaginal cream USE 1 GRAM VAGINALL Y 3 TIMES A WEEK active Not Available Not Available No t Available methylpre dnisolone 4 mg tablets in a dose pack FOLLOW PACKAGE DIRECTIO NS 08/15 completed Not Available Not Available Not Available colchicin e 0.6 mg tablet active Not Available Not Available Not Available hydrocort isone 2.5 % topical ointment RUB IN WELL TWICE DAILY TO THE AFFECTED AREA OF EYELIDS UNTIL CLEAR active Not Available Not Available No t Available hydroxyzi ne HCl 10 mg tablet TAKE 1 TABLET BY MOUTH 3 TIMES A DAY NEEDED FOR ITCHING active Not Available Not Available No t Available clobetaso l 0.05 % scalp solution APPLY DAILY TO INVOLVED AREA OF THE SCALP UNTIL CLEAR active Not Available Not Available No t Available loratadin e 10 mg tablet TAKE 1 TABLET BY MOUTH EVERY MORNING active Not Available Not Available No t Available mometason e 0.1 % topical cream APPLY A THIN LAYER TOPICALL Y TO THE AFFECTED AREA DAILY 03/10 completed Not Available Not Available Not Available amoxicill in 875 mg-potass ium clavulana te 125 mg tablet TAKE 1 TABLET BY MOUTH TWICE DAILY 03/12 completed Not Available Not Available Not Available ezetimibe 10 mg tablet Take 1 tablet every day by oral route. 12/28 completed pt not taking 12/28/20 Not Available Not Available Not Available rosuvasta tin 10 mg tablet 1 tablet once a day 08/21 completed Not Available Not Available Not Available metoprolo l tartrate 25 mg tablet Take 1 tablet twice a day by oral route. 08/21 completed Pt is no more on this medicati on 04/25/19 sm Not Available Not Available Not Available nitrofura ntoin monohydra te/macroc rystals 100 mg capsule TAKE 1 CAPSULE BY MOUTH EVERY 12 HOURS FOR 7 DAYS active Not Available Not Available No t Available levothyro xine 75 mg po daily 02/16 /2021 completed Not Available Not Available Not Available omeprazol e 40 mg 1 tablet once day 08/14 completed Not Available Not Available Not Available aluminum hydrox-ma gnesium carb 160-105 mg 2 chw po q4h prn 08/14 completed Not Available Not Available Not Available Fish Oil 550 mg once day 10/14 completed pt not taking at this time 10/15/19 21 TL Not Available Not Available Not Available Vitamin D3 2000 iu once day 08/14 completed Not Available Not Available Not Available lansopraz ole 1 tab, oncea day 08/14 completed Not Available Not Available Not Available ProAir HFA 90 mcg/actua tion aerosol inhaler 03/13 completed Not Available Not Available Not Available Januvia 50 mg tablet 10/14 completed pt not taking 10/15/19 21 TL Not Available Not Available Not Available oseltamiv ir 30 mg capsule 10/29 completed Not Available Not Available Not Available calcium 315 mg-vitami n D3 250 unit-phyt osterols 200 mg tablet Take by oral route. active Not Available Not Available No t Available Citracal Plus Bone Density 1 tab, OD 08/14 completed Not Available Not Available Not Available Suprep Bowel Prep Kit 17.5 gram-3.13 gram-1.6 gram oral solution USE DIRECTED BY PHYSICIA N active Not Available Not Available No t Available Jardiance 10 mg tablet 08/18 completed Not Available Not Available Not Available colchicin e 0.6 mg capsule TAKE 1 CAPSULE BY MOUTH TWICE DAILY 03/10 completed Not Available Not Available Not Available Stiolto Respimat 2.5 mcg-2.5 mcg/actua tion solution for inhalatio n INHALE 2 PUFFS BY MOUTH DAILY active Not Available Not Available No t Available Tagrisso 80 mg tablet Take 1 mg every day by oral route. active Not Available Not Available No t Available OneTouch Verio Flex Meter USE DIRECTED active Not Available Not Available No t Available potassium chlorate (bulk) 10mg at bedtime 09/22 completed Not Available Not Available Not Available Adult Aspirin Regimen 81 mg tablet,de layed release Take 1 tablet every day by oral route. active Not Available Not Available No t Available OneTouch Delica Plus Lancet 30 gauge active Not Available Not Available Not Available Vitals Date Recorded Body height Body mass index (BMI) Body weight Heart rate Oxygen saturation Oxygen saturation in Arterial blood by Pulse oximetry Systolic blood pressure Diastolic blood pressure Provider Name and Address Organization Details Last Updated DateTime 2 147.32 cm 30.5 kg/m2 12410.4 9 g 80 /min 95 % 95 % 160 mm[Hg] 80 mm[Hg] [facility] 2 11:01:29 Date Recorded Body height Body mass index (BMI) Body weight Heart rate Oxygen saturation Oxygen saturation in Arterial blood by Pulse oximetry Systolic blood pressure Diastolic blood pressure Provider Name and Address Organization Details Last Updated DateTime 3 147.32 cm 30.5 kg/m2 59519.4 9 g 70 /min 95 % 95 % 120 mm[Hg] 90 mm[Hg] [facility] 3 12:09:01 Date Recorded Body height Body mass index (BMI) Body weight Heart rate Respiratory rate Oxygen saturation Oxygen saturation in Arterial blood by Pulse oximetry Systolic blood pressure Diastolic blood pressure Provider Name and Address Organization Details Last Updated DateTime 3 147.32 cm 29.3 kg/m2 96432.9 3 g 70 /min 16 /min 97 % 97 % 118 mm[Hg] 70 mm[Hg] Jhon Manzano [facility] 3 16:12:33 Date Recorded Body height Body mass index (BMI) Body weight Heart rate Oxygen saturation Oxygen saturation in Arterial blood by Pulse oximetry Systolic blood pressure Diastolic blood pressure Provider Name and Address Organization Details Last Updated DateTime 4 147.32 cm 29.7 kg/m2 67232.1 2 g 74 /min 97 % 97 % 133 mm[Hg] 70 mm[Hg] Sherry Browning [facility] 4 15:48:34 Date Recorded Body height Body mass index (BMI) Body weight Heart rate Oxygen saturation Oxygen saturation in Arterial blood by Pulse oximetry Systolic blood pressure Diastolic blood pressure Provider Name and Address Organization Details Last Updated DateTime 4 147.32 cm 30.2 kg/m2 93008.3 8 g 80 /min 98 % 98 % 135 mm[Hg] 65 mm[Hg] Sherry Browning [place] - [facility] 4 16:55:17 Social History Question Answer Notes LastModified by Organizat ion Details LastModified Time Tobacco Smoking Status Former Smoker quit 2 months ago Not Available [facility] 06/09/2020 03:30:40 Do You Or Have You Ever Used E-cigarettes Or Vape? Never Used Electronic Cigarettes Information not available 10/12/2020 What Is Your Occupation? Retired [id number] Information not available 06/09/2020 Live Alone Or With Others? Alone Information not available 10/26/2018 What Was The Date Of Your Most Recent Tobacco Screening? 12/05/2018 [id number] Information not available 06/09/2020 Do You Or Have You Ever Used Smokeless Tobacco? Former Smokeless Tobacco User Information not available 10/12/2020 How Many Years Have You Smoked Tobacco? 40 [id number] Information not available 06/09/2020 Sex: Unknown Functional Status None recorded. Mental Status None recorded. Family History Relationship Description Onset Age of this Age Resolved Age Notes LastModified by Organization Details LastModified Time Father Heart disease 60 [email or web address] Not available 2018 09:48:51 Father Myocardial infarction [email or web address] Not available 10/26 09:49:56 Mother Tuberculosis [email or web address] Not availab le 10/26/2018 09:49:45 Son Heart disease [email or web address] Not available 2018 09:50:02 Notes:Father, heart diease, ; son, HTN, . Medical History Condition Response Hyperlipidemia Y Heart Disease Y Cancer Thyroid Disease Hypertension Y High Cholesterol Y Gynecological HistoryNo gynecological history recorded. Obstetrics History GPAL:G 0 P 0 0 0 0 Past Encounters Encounter ID Performer Location Encounter Start Date Encounter Closed Date Diagnosis/Indication Diagnosis SNOMED-CT Code Diagnosis ICD10 Code Diagnosis Note [id number] MD Laura Hess Office [address] [place] [id number] 09/05/2018 15:45:22 09/05/2018 17:06:42 Pre-surgery testing 793097538 Z01.89 Will obtain Treadmill Myoview Stress Test to look for any ischemia. Has a high [place] Risk score. Has Known CAD and/or CAD risk equivalent . Will get echo to look for any structural heart disease Continue maximal medical treatment and risk factor modificati on. However, She cannot tolerate ASA due to stomach upset and is refusing to try and is allergic to Plavix Cannot tolerate any statin due to leg cramping. Has tried Crestor, Lipitor, and Livalo, and niccivastamarium n. Consider Repatha. F/u FLP Dyspnea on exertion 6084 5006 R06.09 probably due to her left upper lung mass however could also be angina equivalent . Will obtain Treadmill Myoview Stress Test to look for any ischemia. Has a high [place] Risk score. Has Known CAD and/or CAD risk equivalent . Will get echo to look for any structural heart disease Coronary arteriosclerosis 65085545 I25.10 Has a prior hx of CAD required stent placement x2 over 20 years ago at [facility]. Will review records that was provided. Will obtain Treadmill Myoview Stress Test to look for any ischemia. Has a high [place] Risk score. Has Known CAD and/or CAD risk equivalent . Cannot tolerate ANY statin therapy, ASA, or Plavix. Essential hypertension 19779767 I10 Well controlled on current regimen. Continue. Carcinoma of female breast 675125710 C50.[address] Hawley. Needs surgery. Family his tory of coronary arteriosclerosis 359994188 Z82.49 Her son passed from a AL at the age of 53. Her father passed from a AL at the age of 70. Will obtain Treadmill Myoview Stress Test to look for any ischemia. Has a high [place] Risk score. Has Known CAD and/or CAD risk equivalent . Needs maximal medical therapy and risk factor modificati on. [id number] MD Laura Hess Office [address] [place] [id number] 09/20/2018 11:21:11 09/20/2018 12:21:11 Pre-surgery testing 444955139 Z01.89 stress test is abnormal The patient will be scheduled for left heart catheteriz ation, with coronary angiogram, and possible PTCA/Stent . The procedure was discussed with the patient, and risks, benefits, and alternativ e options were explained. The patient was given informatio n about heart catheteriz ation and interventi onal procedures . The patient agrees to proceed. Will get echo to look for any structural heart disease Continue maximal medical treatment and risk factor modificati on. However, She cannot tolerate ASA due to stomach upset and is refusing to try and is allergic to Plavix Cannot tolerate any statin due to leg cramping. Has tried Crestor, Lipitor, and Livalo, and saeid ly. Consider Repatha. F/u FLP Dyspnea on exertion 6084 5006 R06.09 probably due to her left upper lung mass however could also be angina equivalent . Will obtain Treadmill Myoview Stress Test to look for any ischemia. Has a high [place] Risk score. Has Known CAD and/or CAD risk equivalent . Will get echo to look for any structural heart disease Coronary arteriosclerosis 90421985 I25.10 Has a prior hx of CAD required stent placement x2 over 20 years ago at [facility]. Will review records that was provided. Will obtain Treadmill Myoview Stress Test to look for any ischemia. Has a high [place] Risk score. Has Known CAD and/or CAD risk equivalent . Cannot tolerate ANY statin therapy, ASA, or Plavix. Essential hypertension 98403344 I10 Well controlled on current regimen. Continue. Carcinoma of female breast 659578115 C50.[address] Hawley. Needs surgery. Family his tory of coronary arteriosclerosis 726777765 Z82.49 Her son passed from a AL at the age of 53. Her father passed from a AL at the age of 70. Will obtain Treadmill Myoview Stress Test to look for any ischemia. Has a high [place] Risk score. Has Known CAD and/or CAD risk equivalent . Needs maximal medical therapy and risk factor modificati on. Angina pectoris 39532574 0 I20.9 Stented co ronary artery 550828758 Z95.5 [id number] Israel Bower Office [address] [place] [id number] 10/29/2018 10:42:18 10/29/2018 11:25:11 Pre-surgery testing 232714770 Z01.89 pt had cABGshe is going for lung resectionl ow risk for moderate risk surgerycon t Metoprolol and statiin Dyspnea on exertion 6084 5006 R06.09 probably due to her left upper lung mass Coronary arteriosclerosis 02808241 I25.10 Has a prior hx of CAD required stent placement x2 over 20 years ago at [facility]. Will review records that was provided. Cannot tolerate ANY statin therapy, ASA, or Plavix.bud iblly cut down Metoprolol due to diziness Essential hypertension 32010653 I10 Well controlled on current regimen. Continue. Carcinoma of female breast 963180970 C50.[address] Hawley. Needs surgery. Family his tory of coronary arteriosclerosis 566346902 Z82.49 Her son passed from a AL at the age of 53. Her father passed from a AL at the age of 70. Needs maximal medical therapy and risk factor modificati on. Angina pectoris 34932976 0 I20.9 Stented co ronary artery 560293159 Z95.5 [id number] MD Laura Hess e Office [address] [place] [id number] 12/05/2018 14:08:41 12/05/2018 15:06:02 Pre-surgery testing 620027109 Z01.89 pt had cABGshe is going for lung resectionl ow risk for moderate risk surgerycon t Metoprolol Dyspnea on exertion 6084 5006 R06.09 probably due to her left upper lung mass Coronary arteriosclerosis 24482081 I25.10 Has a prior hx of CAD required stent placement x2 over 20 years ago at [facility]. Will review records that was provided. Cannot tolerate ANY statin therapy, ASA, or Plavix.bud billy cut down Metoprolol due to diziness Essential hypertension 62165346 I10 Well controlled on current regimen. Continue. Carcinoma of female breast 002478782 C50.[address] Hawley. Needs surgery. Family his tory of coronary arteriosclerosis 557501051 Z82.49 Her son passed from a AL at the age of 53. Her father passed from a AL at the age of 70. Needs maximal medical therapy and risk factor modificati on. Angina pectoris 41416505 0 I20.9 Stented co ronary artery 301503631 Z95.5 Intermitte nt claudication 31920787 I73.9 [id number] Israel Sanchez e Office [address] [place] [address] 03/13/2019 14:20:10 03/13/2019 15:53:00 Pre-surgery testing 651178416 Z01.89 pt had cABGshe is going for lung resectionl ow risk for moderate risk surgerycon t Metoprolol Dyspnea on exertion 6084 5006 R06.09 probably due to her left upper lung mass Coronary arteriosclerosis 54045221 I25.10 Has a prior hx of CAD required stent placement x2 over 20 years ago at [facility]. Will review records that was provided. Cannot tolerate ANY statin therapy, ASA, or Plavix.bud billy cut down Metoprolol due to wheexing Essential hypertension 71852244 I10 Well controlled on current regimen. Continue. Carcinoma of female breast 267811194 C50.[address] Hawley. Needs surgery. Family his tory of coronary arteriosclerosis 718423363 Z82.49 Her son passed from a AL at the age of 53. Her father passed from a AL at the age of 70. Needs maximal medical therapy and risk factor modificati on. Angina pectoris 27227769 0 I20.9 Stented co ronary artery 396982927 Z95.5 Intermitte nt claudication 00310552 I73.9 [address] [facility] Laura [place]te Office [address] [place] [address] 04/25/2019 09:28:18 04/25/2019 10:32:54 Dyspnea on exertion 98425491 R06.09 probably due to her left upper lung mass 04/25/19The patient states that her PCP stoped the toprol XL due to SOB. The patient states that her breathing has improved since then. Coronary arteriosclerosis 99252646 I25.10 CABG X 2 done in 09/25/18:L DAYRON to mid LAD,reserv ed saphenous vein graft from aorta to D2. Has a prior hx of CAD required stent placement x2 over 20 years ago at [facility]. Will review records that was provided. Feels she can tolerate Simvastati n better than Atorvastat in. ASA, or Plavix.bud l cut down Metoprolol due to wheexing. PCP stoped metoprolol Essential hypertension 93794254 I10 Well controlled on current regimen. Continue. 04/25/19 BP 148/90 patient states she has not taking medication today, however will after she can eat. Carcinoma of female breast 329991914 C50.[address] Hawley. Needs surgery. Family his tory of coronary arteriosclerosis 289319292 Z82.49 Her son passed from a AL at the age of 53. Her father passed from a AL at the age of 70. Needs maximal medical therapy and risk factor modificati on. Angina pectoris 09946487 0 I20.9 Stented co ronary artery 755656910 Z95.5 CABG X 2 done in 09/25/18:L DAYRON to mid LAD,reserv ed saphenous vein graft from aorta to D2. Intermitte nt claudication 46594072 I73.9 Dyslipidemia 638959009 E 78.5 on rosuvastat in 10 mg but want to change to simvastati n 10/07/18 LDL:63 42639 MD Laura Hess Office [address] [place] [address] 08/21/2019 13:51:23 08/21/2019 14:51:47 Dyspnea on exertion 61128591 R06.09 probably due to her left upper lung mass 04/25/19The patient states that her PCP stoped the toprol XL due to SOB. The patient states that her breathing has improved since then. Coronary arteriosclerosis 64373271 I25.10 CABG X 2 done in 09/25/18:L DAYRON to mid LAD,reserv ed saphenous vein graft from aorta to D2. Has a prior hx of CAD required stent placement x2 over 20 years ago at [facility]. Will review records that was provided. Feels she can tolerate Simvastati n better than Atorvastat in. ASA, or Plavix.bud billy cut down Metoprolol due to wheezing. PCP stoped metoprolol Essential hypertension 90656204 I10 bp 140/80 Carcinoma of female breast 972031112 C50.[address] Hawley. Needs surgery. Family his tory of coronary arteriosclerosis 642033605 Z82.49 Her son passed from a AL at the age of 53. Her father passed from a AL at the age of 70. Needs maximal medical therapy and risk factor modificati on. Angina pectoris 83083931 0 I20.9 Stented co ronary artery 406362754 Z95.5 CABG X 2 done in 09/25/18:L DAYRON to mid LAD,reserv ed saphenous vein graft from aorta to D2. Intermitte nt claudication 53028134 I73.9 Dyslipidemia 591579333 E 78.5 Patient now taking ezetimibe. She could not tolerate simvastati n and rosuvastat in 10/07/18 LDL:63 Peripheral vascular disease 137734175 I73.9 with known Iliac stenosis, will plan Right iliac artery stent 24647 [facility] Reyna Bower Office [address] [facility] [address] 02/27/2020 14:37:40 02/27/2020 15:23:16 Dyspnea on exertion 03208145 R06.09 check echo patient followed by Pulmonary as well 04/25/19The patient states that her PCP stoped the toprol XL due to SOB. The patient states that her breathing has improved since then. Coronary arteriosclerosis 18142168 I25.10 CABG X 2 done in 09/25/18:L DAYRON to mid LAD,reserv ed saphenous vein graft from aorta to D2. occasional chest pains (since CABG , atypical for angina associated with numbness in both arms). Check echo and Holter. consider stress testing next visit Has a prior hx of CAD required stent placement x2 over 20 years ago at [facility]. Will review records that was provided. Feels she can tolerate Simvastati n better than Atorvastat in. ASA, or Plavix.bud billy cut down Metoprolol due to wheezing. PCP stoped metoprolol Essential hypertension 31105287 I10 Well controlled Carcinoma of female breast 307729676 C50.[address] Hawley. Family his tory of coronary arteriosclerosis 735610390 Z82.49 Her son passed from a AL at the age of 53. Her father passed from a AL at the age of 70. Needs maximal medical therapy and risk factor modificati on. Angina pectoris 02842352 0 I20.9 Stented co ronary artery 435488926 Z95.5 CABG X 2 done in 09/25/18:L DAYRON to mid LAD,reserv ed saphenous vein graft from aorta to D2. Dyslipidemia 465541361 E 78.5 Patient now taking ezetimibe. She could not tolerate simvastati n and rosuvastat in 3/03/19 LDL:63 Peripheral vascular disease 589022933 I73.9 with known Iliac stenosis, will plan Right iliac artery stent Dizziness 989126289 R42 Check echo before next visit.[facility] k 48 HolterWIll d/c torsemide as she appears euvolemic. May take on as needed basis 200[address] Iggy Pickard Laura [place] Office [address] [place] [address] 04/03/2020 10:38:33 04/03/2020 11:51:16 Dizziness 650965600 R42 48 Holter monitor showed no events. WIll d/c torsemide as she appears euvolemic. May take on as needed basis Coronary arteriosclerosis 37550795 I25.10 CABG X 2 done in 09/25/18:L DAYRON to mid LAD,reserv ed saphenous vein graft from aorta to D2. occasional chest pains (since CABG , atypical for angina associated with numbness in both arms). Check echo and Holter. consider stress testing next visit Has a prior hx of CAD required stent placement x2 over 20 years ago at [facility]. Will review records that was provided. Feels she can tolerate Simvastati n better than Atorvastat in. ASA, or Plavix.bud l cut down Metoprolol due to wheezing. PCP stoped metoprolol Dyspnea on exertion 6084 5006 R06.09 2D echo reviewed patient followed by Pulmonary as well 04/25/19The patient states that her PCP stoped the toprol XL due to SOB. The patient states that her breathing has improved since then. Essential hypertension 89572947 I10 Well controlled Carcinoma of female breast 081613297 C50.[address] Hawley. Family his tory of coronary arteriosclerosis 543229979 Z82.49 Her son passed from a AL at the age of 53. Her father passed from a AL at the age of 70. Needs maximal medical therapy and risk factor modificati on. Angina pectoris 46617669 0 I20.9 Stented co ronary artery 192204102 Z95.5 CABG X 2 done in 09/25/18:L DAYRON to mid LAD,reserv ed saphenous vein graft from aorta to D2. Dyslipidemia 015413320 E 78.5 Patient now taking ezetimibe. She could not tolerate simvastati n and rosuvastat in 10/07/18 LDL:63 Peripheral vascular disease 164679033 I73.9 with known Iliac stenosis, now with worsening claudicati on. will plan [place] [address] Iggy Pickard Laura [place] Office [address] [place] [address] 04/23/2020 14:58:08 04/23/2020 15:45:59 Dizziness 381455975 R42 48 Holter monitor showed no events. WIll d/c torsemide as she appears euvolemic. May take on as needed basis Peripheral vascular disease 427284843 I73.9 s/p peripheral angiogram with 70% lesion. No interventi on. On maximal medical therapy. exercise encouraged . Coronary arteriosclerosis 85882876 I25.10 CABG X 2 done in 09/25/18:L DAYRON to mid LAD,reserv ed saphenous vein graft from aorta to D2. occasional chest pains (since CABG , atypical for angina associated with numbness in both arms). Check echo and Holter. consider stress testing next visit Has a prior hx of CAD required stent placement x2 over 20 years ago at [facility]. Will review records that was provided. Feels she can tolerate Simvastati n better than Atorvastat in. ASA, or Plavix.bud billy cut down Metoprolol due to wheezing. PCP stoped metoprolol Dyspnea on exertion 6084 5006 R06.09 2D echo reviewed patient followed by Pulmonary as well 04/25/19The patient states that her PCP stoped the toprol XL due to SOB. The patient states that her breathing has improved since then. Essential hypertension 99884914 I10 Well controlled Carcinoma of female breast 718016103 C50.[address] Hawley. Family his tory of coronary arteriosclerosis 409422201 Z82.49 Her son passed from a AL at the age of 53. Her father passed from a AL at the age of 70. Needs maximal medical therapy and risk factor modificati on. Angina pectoris 17644681 0 I20.9 Stented co ronary artery 260023023 Z95.5 CABG X 2 done in 09/25/18:L DAYRON to mid LAD,reserv ed saphenous vein graft from aorta to D2. Dyslipidemia 407772073 E 78.5 Patient now taking ezetimibe. She could not tolerate simvastati n and rosuvastat in 10/07/18 LDL:63 55915 MD Laura Hess Office [address] [place] [address] 10/14/2020 16:22:26 10/14/2020 17:20:49 Dizziness 789343271 R42 48 Holter monitor showed no events. WIll d/c torsemide as she appears euvolemic. May take on as needed basis Peripheral vascular disease 719728951 I73.9 s/p peripheral angiogram with 70% lesion. No interventi on. On maximal medical therapy. exercise encouraged . Coronary arteriosclerosis 14556660 I25.10 CABG X 2 done in 09/25/18:L DAYRON to mid LAD,reserv ed saphenous vein graft from aorta to D2. occasional chest pains (since CABG , atypical for angina associated with numbness in both arms). Check echo and Holter. consider stress testing next visit Has a prior hx of CAD required stent placement x2 over 20 years ago at [facility]. Will review records that was provided. Feels she can tolerate Simvastati n better than Atorvastat in. ASA, or Plavix.bud billy cut down Metoprolol due to wheezing. PCP stoped metoprolol Dyspnea on exertion 6084 5006 R06.09 2D echo reviewed patient followed by Pulmonary as well 04/25/19 The patient states that her PCP stoped the toprol XL due to SOB. The patient states that her breathing has improved since then. Essential hypertension 58950436 I10 Increase amlodipine today Carcinoma of female breast 269548948 C50.[address] Hawley. Family his tory of coronary arteriosclerosis 845938738 Z82.49 Her son passed from a AL at the age of 53. Her father passed from a AL at the age of 70. Needs maximal medical therapy and risk factor modificati on. Angina pectoris 24987869 0 I20.9 Stented co ronary artery 657549902 Z95.5 CABG X 2 done in 09/25/18:L DAYRON to mid LAD,reserv ed saphenous vein graft from aorta to D2. Dyslipidemia 925443833 E 78.5 Patient now taking ezetimibe. She could not tolerate simvastati n and rosuvastat in 10/07/18 LDL:63 [address] [facility] Laura why[place] Office [address] [place] [address] 10/28/2020 14:10:58 10/28/2020 14:44:27 Dizziness 012707044 R42 48 Holter monitor showed no events. WIll d/c torsemide as she appears euvolemic. May take on as needed basis Peripheral vascular disease 160126704 I73.9 s/p peripheral angiogram with 70% lesion. No interventi on. On maximal medical therapy. exercise encouraged . Coronary arteriosclerosis 01117628 I25.10 CABG X 2 done in 09/25/18:L DAYRON to mid LAD,reserv ed saphenous vein graft from aorta to D2. occasional chest pains (since CABG , atypical for angina associated with numbness in both arms). Check echo and Holter. consider stress testing next visit Has a prior hx of CAD required stent placement x2 over 20 years ago at [facility]. Will review records that was provided. Feels she can tolerate Simvastati n better than Atorvastat in. ASA, or Plavix.bud billy cut down Metoprolol due to wheezing. PCP stoped metoprolol Dyspnea on exertion 6084 5006 R06.09 2D echo reviewed patient followed by Pulmonary as well 04/25/19 The patient states that her PCP stoped the toprol XL due to SOB. The patient states that her breathing has improved since then. Essential hypertension 63034468 I10 Will add HCTZ for better BP control Increase Amlodipine 10 mg daily Carcinoma of female breast 579931254 C50.[address] Hawley. Family his tory of coronary arteriosclerosis 355026259 Z82.49 Her son passed from a AL at the age of 53. Her father passed from a AL at the age of 70. Needs maximal medical therapy and risk factor modificati on. Angina pectoris 71622978 0 I20.9 Stented co ronary artery 260105500 Z95.5 CABG X 2 done in 09/25/18:L DAYRON to mid LAD,reserv ed saphenous vein graft from aorta to D2. Dyslipidemia 419486441 E 78.5 Patient now taking ezetimibe. She could not tolerate simvastati n and rosuvastat in 10/07/18 LDL:63 [id number] Shama Melton [facility] Office [address] [place] [address] 12/28/2020 14:46:58 12/28/2020 15:22:34 Essential hypertension 28717211 I10 Fair control on current regimen Dizziness 930013926 R42 48 holter monitor obtained 03/03/2020 showed no events Improved following discontinu ation of HCTZ and decreasing torsemide to PRN Peripheral vascular disease 372541890 I73.9 Peripheral angiogram 04/08/2020 : Moderate peripheral vascular disease. AAA. Stable, asymptomat ic. Coronary arteriosclerosis 42077042 I25.10 s/p 2V CABG ( 9: QUIGLEY to mid LAD, reserved saphenous vein graft from aorta to D2) Continue maximal medical treatment Carcinoma of female breast 826271484 C50.919 Follows with oncology (Dr. Hawley) Family his tory of coronary arteriosclerosis 953147094 Z82.49 Maximal medical therapy and risk factor modificati on Dyslipidemia 500307433 E 78.5 Needs to keep LDL less than 70, and HDL more than 40. 10/07/2018 LDL 63 Continue Zetia; unable to tolerate statins. Will get fasting lipids for follow-up Atypical chest pain 1025 95741 R07.89 Treadmill Myoview Stress test, has high [place] Risk score. Has Known CAD, or CAD risk equivalent . To look for any ischemia. Abdominal aortic aneurysm 132938146 I71.4 CTA abdomen/pe lvis 04/16/2020 : Infrarenal abdominal aortic ectasia, approachin g size criteria for aneurysm (28x29 mm). 2 mm nonobstrut ing left power pole renal stone. Stable left adrenal nodules, most compatible with benign process such as adenomas. Will continue close monitoring with serial CTAs 84114 MD Laura Hess Office [address] [place] [address] 08/11/2021 16:32:23 08/11/2021 17:03:44 Essential hypertension 46416844 I10 Fair control on current regimen Dizziness 827500098 R42 48 holter monitor obtained 03/03/2020 showed no events Improved following discontinu ation of HCTZ and decreasing torsemide to PRN Peripheral vascular disease 005401136 I73.9 Peripheral angiogram 04/08/2020 : Moderate peripheral vascular disease. AAA. Stable, asymptomat ic. Coronary arteriosclerosis 70603297 I25.10 s/p 2V CABG ( 9: QUIGLEY to mid LAD, reserved saphenous vein graft from aorta to D2) Continue maximal medical treatmentO btain echo to evaluate for structural /functiona l disease. Carcinoma of female breast 156526954 C50.919 Follows with oncology (Dr. Hawley) Family his tory of coronary arteriosclerosis 879322711 Z82.49 Maximal medical therapy and risk factor modificati on Dyslipidemia 266198613 E 78.5 Needs to keep LDL less than 70, and HDL more than 40. 10/07/2018 LDL 63 Continue Zetia; unable to tolerate statins. Will get fasting lipids for follow-up Atypical chest pain 1025 65053 R07.89 Treadmill Myoview Stress test was negative Abdominal aortic aneurysm 331122690 I71.4 CTA abdomen/pe lvis 04/16/2020 : Infrarenal abdominal aortic ectasia, approachin g size criteria for aneurysm (28x29 mm). 2 mm nonobstrut ing left power pole renal stone. Stable left adrenal nodules, most compatible with benign process such as adenomas. Will continue close monitoring with serial CTAs 50206 MD Laura Hess Office [address] [place] [address] 02/21/2022 10:39:11 02/21/2022 12:01:45 Essential hypertension 31061198 I10 Fair control on current regimen Dizziness 654602413 R42 48 holter monitor obtained 03/03/2020 showed no events Improved following discontinu ation of HCTZ and decreasing torsemide to PRN Peripheral vascular disease 340917106 I73.9 Peripheral angiogram 04/08/2020 : Moderate peripheral vascular disease. AAA. Stable, asymptomat ic. Coronary arteriosclerosis 73230222 I25.10 s/p 2V CABG ( 9: QUIGLEY to mid LAD, reserved saphenous vein graft from aorta to D2) Continue maximal medical treatmentO btain echo to evaluate for structural /functiona l disease. Carcinoma of female breast 340950906 C50.919 Follows with oncology (Dr. Hawley) Family his tory of coronary arteriosclerosis 920833058 Z82.49 Maximal medical therapy and risk factor modificati on Dyslipidemia 592324422 E 78.5 Needs to keep LDL less than 70, and HDL more than 40. Continue Zetia; unable to tolerate statins.Wi ll try on Liqview injection Atypical chest pain 1025 97958 R07.89 Treadmill Myoview Stress test was negative Abdominal aortic aneurysm 528684012 I71.4 CTA abdomen/pe lvis 04/16/2020 : Infrarenal abdominal aortic ectasia, approachin g size criteria for aneurysm (28x29 mm). 2 mm nonobstrut ing left power pole renal stone. Stable left adrenal nodules, most compatible with benign process such as adenomas. Will continue close monitoring with serial CTAs [id number] Adryan Stevens MD [facility] Office [address] [place] [place] [address] 08/18/2022 11:30:27 08/18/2022 12:27:51 Essential hypertension 93369528 I10 Fair control on current regimen Dizziness 344140125 R42 better Peripheral vascular disease 320520525 I73.9 Peripheral angiogram 04/08/2020 : Moderate peripheral vascular disease. AAA. Stable, asymptomat ic. Coronary arteriosclerosis 52035834 I25.10 s/p 2V CABG ( 9: QUIGLEY to mid LAD, reserved saphenous vein graft from aorta to D2) Continue maximal medical treatmentO btain echo to evaluate for structural /functiona l disease. Carcinoma of female breast 406438546 C50.919 Follows with oncology (Dr. Hawley) Family his tory of coronary arteriosclerosis 749395614 Z82.49 Maximal medical therapy and risk factor modificati on Dyslipidemia 746287742 E 78.5 Needs to keep LDL less than 70, and HDL more than 40. Continue Zetia; unable to tolerate statins.Wi ll try on Liqview injection Atypical chest pain 1025 34211 R07.89 Treadmill Myoview Stress test was negative [id number] Adryan Stevens MD [facility] [address] [place] [address] 02/08/2023 15:26:49 02/08/2023 16:29:52 Essential hypertension 57283697 I10 Fair control on current regimen Dizziness 116516285 R42 better Peripheral vascular disease 767996051 I73.9 Peripheral angiogram 04/08/2020 : Moderate peripheral vascular disease. AAA. Stable, asymptomat ic. Coronary arteriosclerosis 33802816 I25.10 s/p 2V CABG ( 9: QUIGLEY to mid LAD, reserved saphenous vein graft from aorta to D2) Continue maximal medical treatmentO btain echo to evaluate for structural /functiona l disease. Carcinoma of female breast 308870587 C50.919 Follows with oncology (Dr. Hawley) Family his tory of coronary arteriosclerosis 187210815 Z82.49 Maximal medical therapy and risk factor modificati on Dyslipidemia 266521220 E 78.5 Needs to keep LDL less than 70, and HDL more than 40. Continue Zetia; unable to tolerate statins.Wi ll try on Liqview injection Atypical chest pain 1025 78037 R07.89 Treadmill Myoview Stress test was negative [id number] SANDRA ESCOBAR [facility] [address] [place] [address] 08/15/2023 15:23:56 08/15/2023 16:07:03 Essential hypertension 04569296 I10 Fair control on current regimen Peripheral vascular disease 440191121 I73.9 Peripheral angiogram 04/08/2020 : Moderate peripheral vascular disease. AAA. now with painWill get KATH's Coronary arteriosclerosis 46479630 I25.10 s/p 2V CABG ( 9: QUIGLEY to mid LAD, reserved saphenous vein graft from aorta to D2) Continue maximal medical treatmentO btain echo to evaluate for structural /functiona l disease. Carcinoma of female breast 746997903 C50.919 Follows with oncology (Dr. Hawley) Family his tory of coronary arteriosclerosis 953552815 Z82.49 Maximal medical therapy and risk factor modificati on Dyslipidemia 389084646 E 78.5 Needs to keep LDL less than 70, and HDL more than 40. Continue Zetia; unable to tolerate statins.Wi ll try on Liqview injection [id number] Adryan Stevens MD [facility] [address] [place] [address] 03/12/2024 16:35:48 03/12/2024 17:33:43 Essential hypertension 10800350 I10 Fair control on current regimen Peripheral vascular disease 791533002 I73.9 Peripheral angiogram 04/08/2020 : Moderate peripheral vascular disease. AAA. now with painWill get KATH's Coronary arteriosclerosis 57330620 I25.10 s/p 2V CABG ( 9: QUIGLEY to mid LAD, reserved saphenous vein graft from aorta to D2) Continue maximal medical treatmentO btain echo to evaluate for structural /functiona l disease. Carcinoma of female breast 593425817 C50.919 Follows with oncology (Dr. Hawley) Family his tory of coronary arteriosclerosis 090292849 Z82.49 Maximal medical therapy and risk factor modificati on Dyslipidemia 208560132 E 78.5 Needs to keep LDL less than 70, and HDL more than 40. Continue Zetia; unable to tolerate statins.wa s on Liqviio injection , but had side effect, she stopped it Health Concerns Section Related Observation LastModified by Organization Detai ls LastModified Time None Recorded Concern Status LastModified by Organization Details LastModified Time None Recorded Advance Directives Directive None Recorded Payers Encounter Date Sequence Insurance Name Policy Number Policy Erickson Covered Member ID Erickson Member ID Guarantor Name 02/21/2022 1 [place] Grecia L Quinn [id number] Grecia Quinn 02/21/2022 2 WPS - FOR LIFE (SECONDARY TO MEDICARE) Grecia Quinn [id number] Grecia Quinn 08/18/2022 1 [place] Grecia L Quinn [id number] Grecia Quinn 08/18/2022 2 [place]PS - FOR LIFE (SECONDARY TO MEDICARE) Grecia Quinn [id number] Grecia Quinn 02/08/2023 1 [place] Grecia L Quinn [id number] Grecia Quinn 02/08/2023 2 [place]PS - FOR LIFE (SECONDARY TO MEDICARE) Grecia Quinn [id number] Grecia Quinn 08/15/2023 1 [place] Grecia L Quinn [id number] Grecia Quinn 08/15/2023 2 [place]PS - FOR LIFE (SECONDARY TO MEDICARE) Grecia Quinn [id number] Grecia Quinn 03/12/2024 1 [place] Grecia Billy Quinn [id number] Grecia Quinn 03/12/2024 2 [place]PS - FOR LIFE (SECONDARY TO MEDICARE) Grecia Adlerox [id number] Grecia Quinn Notes Date Note Type Note Provider Name and Address Organization Details Recorded Time 02/21/2022 text/html 02/21/22CC : Car diac follow up, dyspnea on [id number] women with a past medical history of CAD s/p CABG (09/25/18), HLD, DM is here for 6 month cardiac follow up with ECHO to discuss the results with ECHO results. She was last seen in the clinic on 08/11/21, since then she has chest pain, more of chest wall painShe denies ER visits and hospitalizations since she was last seen. Denies shortness of breath at rest. Has mild dyspnea on exertion.No orthopnea. No PNDs.Denies heart palpitations.Denies dizziness. Denies syncope or near syncope.No ankle or leg edema.No major bleeding events.No reported side effects from medications. Taking medications as prescribed with no missed doses.Denies snoring, daytime somnolence and AM headache. *Last LDL was 63 done on 10/06/18 .Pt dose not takes any statins. She CANNOT tolerate any statin due to leg cramping. Has tried Crestor, Lipitor, and Livalo, and simvastatin. Also CANNOT tolerate ASA due to stomach upset and is allergic to Plavix *Had ECHO done on 08/18/21 showed LV chamber size is normal,there is borderline LVH,the estimated LVEF is 50-55%,normal left atrial pressure with grade I diastolic dysfunction,left atrium chamber is mildly dilated,the aortic valve is mildly calcified,there is mild thickening of the mitral valve anterior leaflet, there is a dense posterior mitral annular calcification, there is trace tricuspid regurgitation. Previously : *Last INR done on 03/14/20 :PT 13.0 INR 0.95 PTT 33. *Had negative stress test done in 01/14/21 with Normal LV systolic function. Exercise tolerance: Poor. LVEF 67% she has chest pain,and Palpitation She continues to have daily left sided chest discomfort. She underwent peripheral angiogram with no intervention. She was incidentally noted to have AAA. 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 SHe is referred to follow up with vascular surgery for close follow up on that. *Had CABG X 2 done in 09/25/18:QUIGLEY to mid LAD,reserved saphenous vein graft from aorta to D2. She has a prior hx of CAD required stent placement x2 over 20 years ago at [facility]. *Had CATH done in 09/22/18 revealed severe coronary artery disease with disease noted in the LAD with a severe in stent restenosis,normal LV systolic function,significant disease of right common iliac artery . *Had negative stress test done in 09/12/18 with normal LV systolic function , EF 67% . She has a strong family hx of heart disease on her fathers side. Her son passed from a AL at the age of 53. Her father passed from a AL at the age of 70. Results from this visit, or from the past:PT/INR 04-03-2020 PT 13.0 INR 0.95 PTT 33BMP 04/03/2020 NA 139 K 3.8 CH 104 CO2 25 GL 112 BUN 21 CR 0.8 CA 9.0CBC 04/03/2020 WBC 5.5 RBC 4.49 HGB 13.0 HCT 40.4 PLT 51051 : PT 12.0,INR 0.9009/14/2019 ; Na 138,K 3.9,Cl99,Co2 29,BUN 23,Creati 0.90,Glucose 151,Ca 9.1 CBC : WBC 6.6,RBC 4.69,HGB 13.7,HCT 42.5,PLT 07993: Na 138 ,K 3.6, CL 104, CO2 24, GLU 101, BUN 13, CR 0.8,10/07/18: PT 14.0, INR 1.08,PTT : HB 11.0, HT 34.403: TC 121 ,TG 95 ,HDL 39 ,LDL [id number] TYPE O POSCBC Hgb 11.0, PLT 380chem 10/10/18 k 3.6, cr0.802 FACTOR XA HEPARIN 0.21abo group + rh type, blood [id number] TYPE O POS09/23/18: CA 4.8TSH, serum or plasma [id number] 1.: TSH 0.861lipid panel, blood [id number]/01/19: Na 138, K 3.8 ,CL 105 ,CO2 26, GLU 116 , BUN 19, CR 0.60, TC 261 ,TG 61, HDL 59,LDL 148 ,CBC w/ diff : HB 13.8, HT 42.63-NSR 02/27/20 EKG: Low voltage, chest leads. Poor R progression in chest leads.08/21/2019 : EKG : Low voltage in chest leads ,PoorR progression in chest leads10/14/20-NSREKG (): NSRpoor R progression, NSST changeselectrocardiogra m [id number] sinus Rhythm poor R progression,NSST changes ,Prolonged QT when compared with ECG of 09/28/2018,premature atrial complexes no longer presentEKG, 09/05/18: Sinus Rhythm. nonspecific T wave abnormality. Abnormal [place]KG. [facility]: Ct, Angiogram, Chest, W/ Contrast 1) stable volume loss and consolidation with in the left upper lobe compared to at least 04/16/2020,20 Grossly stable sub 6 mm pleural nodules with in the left lung ,3) No thoracic lymphadenopathyHad echocardiogram done on 08.04.18 revealing normal LV size and function. EF 70%.03/18/20 ECHO: LV chamber size is normal. LV wall thickness is normal. LV relaxation is impaired. The aortic valve is mildly calcified. There is mild calcification of mitral valve posterior leaflet. There is mild tricuspid regurgitation. Estimated RVSP systolic pressure is 34 mmHg. Sinus bradycardia.03/03/20 24hr HOLTER: Unremarkable Holter, except for occasional PAC's and PVC's.Last stress test was done at [facility] over 2 years ago.Had CATH done in 09/22/18 revealed severe coronary artery disease with disease noted in the LAD with a severe in stent restenosis,normal LV systolic function,significant disease of right common illiac artery .Had ECHO done in 09/12/18 showed normal global systolic function , EF > 55% .Had negative stress test done in 09/12/18 with normal LV systolic function , EF 67% .Had myocardial perfusion study w/ ejection fraction (PROC) MYOCARDIAL PERFUSION STUDY: Negative stress test. 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 Normal LV systolic function. Abnormal stress rest. ArtifactUS, echocardiogram [id number], Chest 04/16/20:evolving post treatment changes with unchanged masslike soft tissue thickening and nodularity about the left upper lobe extending to the left major fissure and the left hilum,this is likely unchanges as compared to prior examination when accounting for differences in imaging and measurement technique,recommend continued imaging follow up.unchanged ground -glass nodules within the right.CT, Angiogram, Abdomen Pelvis 04/16/20 : CT, Angiogram, Abdomen Pelvis 04/16/20:infrarenal abdominal abdominal aortic ectasia,approaching size criteria for aneurysm(28x29 mm),2 mm nonobstruting left power pole renal stone,stable left adrenal nodules,most compatible with benign process such as adenomas.06/24/19 ; CTA Chest WO IV Contrast : Examination limited by lack of intravenous contrast : 1) New small focal area of ground glass with in the superior segment of the left loer lobe adjacent to the patient lung cancer This may represent progression of disease post treatment changes ,atelectasiss or a mild infectious /inflammatory proces .recommened short -term interval follow -up CT in 3 months ,2) Grossley unchanged irregular spiculatd left upper lobe mass corresponding to the patient treated primary lung cancr ,3) Grossly stable sub 6mm right upper lobe pulmonary nodules ,4) No thoracic lymphadenopathy CT chest 06/24/2019 Examination limited by lack of intravenous contrast. New small focal area of ground glass within the superior segment of the left lower lobe adjacent to the patients lung cancer. This may represent prorgression of disease, post treatment changes, atelectasis or a mild infectious/inflammatory process. Recommend short term interval follow up CT in 3 months. grossly unchanged irregular spiculated left upper lobe mass corresponding to the patients treated primary lung cancer. Grossly stable sub 6 mm right upper lobe pulmonary nodules. No thoracic lymphadenopathy CT chest 11/06/2018 Interval decrease in size of irregulat mass in the periphery of the left upper lobe apicoposterior segment, abutting the major fissure. The mass now measures 3.6 cm in greatest diameter comapred to 4.1 cm on the previous examination. Tiny indeterminate nodules in the right upper lobe, measuring 5 mm and 2 mm respectively are unchanged. No new lung nodules noted. No hilar or mediastinal lymphadenopathy is seen on this noncontrast study. Unchaged indeterminate nodule in the left adrenal gland measuring approximately 15 mm. This could be further characterized with adrenal CT or MRI if clinically indicated. Other findings as above Angiogram (PROC) 0Peripheral Angiogram moderate peripheral vascular disease, AAA, will get CTA and refferal for AAA repair. 09/12/18 TDM-Negative stress test. 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 Normal LV systolic function. Abnormal stress test. Artifact noted. LVEF 76%. Adryan Stevens MD [address] [place], [address], [facility] 02/21/2022 11:39:21 08/18/2022 text/html 08/17/22CC : Car dia follow up, dyspnea on [id number] women with a past medical history of CAD s/p CABG (09/25/18), HLD, DM is here for 6 month cardiac follow up. She was last seen in the clinic on 02/21/22, since then she is on Chemo now for lung cancerShe denies ER visits and hospitalizations since she was last seen. Today reports:Denies chest pain.Denies shortness of breath at rest. Has mild dyspnea on exertion.No orthopnea. No PNDs.Denies heart palpitations.Denies dizziness. Denies syncope or near syncope.No ankle or leg edema.No major bleeding events.No reported side effects from medications. Taking medications as prescribed with no missed doses.Denies snoring, daytime somnolence and AM headache.*Last LDL was 63 done on 10/06/18.Pt dose not takes any statins. Previously: She CANNOT tolerate any statin due to leg cramping. Has tried Crestor, Lipitor, and Livalo, and simvastatin. Also CANNOT tolerate ASA due to stomach upset and is allergic to Plavix *Had ECHO done on 08/18/21 showed LV chamber size is normal,there is borderline LVH,the estimated LVEF is 50-55%,normal left atrial pressure with grade I diastolic dysfunction,left atrium chamber is mildly dilated,the aortic valve is mildly calcified,there is mild thickening of the mitral valve anterior leaflet, there is a dense posterior mitral annular calcification, there is trace tricuspid regurgitation. *Last INR done on 03/14/20 :PT 13.0 INR 0.95 PTT 33. *Had negative stress test done in 01/14/21 with Normal LV systolic function. Exercise tolerance: Poor. LVEF 67% She continues to have daily left sided chest discomfort. She underwent peripheral angiogram with no intervention. She was incidentally noted to have AAA. 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 She is referred to follow up with vascular surgery for close follow up on that. *Had CABG X 2 done in 09/25/18:QUIGLEY to mid LAD,reserved saphenous vein graft from aorta to D2. She has a prior hx of CAD required stent placement x2 over 20 years ago at [facility]. *Had CATH done in 09/22/18 revealed severe coronary artery disease with disease noted in the LAD with a severe in stent restenosis,normal LV systolic function,significant disease of right common iliac artery . She has a strong family hx of heart disease on her fathers side. Her son passed from a AL at the age of 53. Her father passed from a AL at the age of 70. Results from this visit, or from the past:PT/INR 04-03-2020 PT 13.0 INR 0.95 PTT 33BMP 04/03/2020 NA 139 K 3.8 CH 104 CO2 25 GL 112 BUN 21 CR 0.8 CA 9.0CBC 04/03/2020 WBC 5.5 RBC 4.49 HGB 13.0 HCT 40.4 PLT 5412109/17/2019 : PT 12.0,INR 0.902 ; Na 138,K 3.9,Cl99,Co2 29,BUN 23,Creati 0.90,Glucose 151,Ca 9.1 CBC : WBC 6.6,RBC 4.69,HGB 13.7,HCT 42.5,PLT 3805510/10/18: Na 138 ,K 3.6, CL 104, CO2 24, GLU 101, BUN 13, CR 0.8,10/07/18: PT 14.0, INR 1.08,PTT : HB 11.0, HT 34.403/10/23: TC 121 ,TG 95 ,HDL 39 ,LDL [id number] TYPE O POSCBC Hgb 11.0, PLT 380chem 10/10/18 k 3.6, cr0.802 FACTOR XA HEPARIN 0.21abo group + rh type, blood [id number] TYPE O POS09/23/18: CA 4.8TSH, serum or plasma [id number] 1.: TSH 0.861lipid panel, blood [id number]/01/19: Na 138, K 3.8 ,CL 105 ,CO2 26, GLU 116 , BUN 19, CR 0.60, TC 261 ,TG 61, HDL 59,LDL 148 ,CBC w/ diff : HB 13.8, HT 42.63-NSR 02/27/20 EKG: Low voltage, chest leads. Poor R progression in chest leads.08/21/2019 : EKG : Low voltage in chest leads ,PoorR progression in chest leads10/14/20-NSREKG (): NSRpoor R progression, NSST changeselectrocardiogra m [id number] sinus Rhythm poor R progression,NSST changes ,Prolonged QT when compared with ECG of 09/28/2018,premature atrial complexes no longer presentEKG, 09/05/18: Sinus Rhythm. nonspecific T wave abnormality. Abnormal EKG. [facility]: Ct, Angiogram, Chest, W/ Contrast 1) stable volume loss and consolidation with in the left upper lobe compared to at least 04/16/2020,20 Grossly stable sub 6 mm pleural nodules with in the left lung ,3) No thoracic lymphadenopathyHad echocardiogram done on 08.04.18 revealing normal LV size and function. EF 70%.03/18/20 ECHO: LV chamber size is normal. LV wall thickness is normal. LV relaxation is impaired. The aortic valve is mildly calcified. There is mild calcification of mitral valve posterior leaflet. There is mild tricuspid regurgitation. Estimated RVSP systolic pressure is 34 mmHg. Sinus bradycardia.03/03/20 24hr HOLTER: Unremarkable Holter, except for occasional PAC's and PVC's.Last stress test was done at [facility] over 2 years ago.Had CATH done in 09/22/18 revealed severe coronary artery disease with disease noted in the LAD with a severe in stent restenosis,normal LV systolic function,significant disease of right common illiac artery .Had ECHO done in 09/12/18 showed normal global systolic function , EF > 55% .Had negative stress test done in 09/12/18 with normal LV systolic function , EF 67% .Had myocardial perfusion study w/ ejection fraction (PROC) MYOCARDIAL PERFUSION STUDY: Negative stress test. 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 Normal LV systolic function. Abnormal stress rest. ArtifactUS, echocardiogram [id number], Chest 04/16/20:evolving post treatment changes with unchanged masslike soft tissue thickening and nodularity about the left upper lobe extending to the left major fissure and the left hilum,this is likely unchanges as compared to prior examination when accounting for differences in imaging and measurement technique,recommend continued imaging follow up.unchanged ground -glass nodules within the right.CT, Angiogram, Abdomen Pelvis 04/16/20 : CT, Angiogram, Abdomen Pelvis 04/16/20:infrarenal abdominal abdominal aortic ectasia,approaching size criteria for aneurysm(28x29 mm),2 mm nonobstruting left power pole renal stone,stable left adrenal nodules,most compatible with benign process such as adenomas.06/24/19 ; CTA Chest WO IV Contrast : Examination limited by lack of intravenous contrast : 1) New small focal area of ground glass with in the superior segment of the left loer lobe adjacent to the patient lung cancer This may represent progression of disease post treatment changes ,atelectasiss or a mild infectious /inflammatory proces .recommened short -term interval follow -up CT in 3 months ,2) Grossley unchanged irregular spiculatd left upper lobe mass corresponding to the patient treated primary lung cancr ,3) Grossly stable sub 6mm right upper lobe pulmonary nodules ,4) No thoracic lymphadenopathy CT chest 06/24/2019 Examination limited by lack of intravenous contrast. New small focal area of ground glass within the superior segment of the left lower lobe adjacent to the patients lung cancer. This may represent prorgression of disease, post treatment changes, atelectasis or a mild infectious/inflammatory process. Recommend short term interval follow up CT in 3 months. grossly unchanged irregular spiculated left upper lobe mass corresponding to the patients treated primary lung cancer. Grossly stable sub 6 mm right upper lobe pulmonary nodules. No thoracic lymphadenopathy CT chest 11/06/2018 Interval decrease in size of irregulat mass in the periphery of the left upper lobe apicoposterior segment, abutting the major fissure. The mass now measures 3.6 cm in greatest diameter comapred to 4.1 cm on the previous examination. Tiny indeterminate nodules in the right upper lobe, measuring 5 mm and 2 mm respectively are unchanged. No new lung nodules noted. No hilar or mediastinal lymphadenopathy is seen on this noncontrast study. Unchaged indeterminate nodule in the left adrenal gland measuring approximately 15 mm. This could be further characterized with adrenal CT or MRI if clinically indicated. Other findings as above Angiogram (PROC) 0Peripheral Angiogram moderate peripheral vascular disease, AAA, will get CTA and refferal for AAA repair. 09/12/18 TDM-Negative stress test. 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 Normal LV systolic function. Abnormal stress test. Artifact noted. LVEF 76%. Adryan Stevens MD [address] [place], [address], [facility] 08/18/2022 12:24:28 02/08/2023 text/html 02/08/23CC : Car diac follow up, dyspnea on [id number] women with a past medical history of CAD s/p CABG (09/25/18), HLD, DM is here for 6 month cardiac follow up. She was last seen in the clinic on 08/18/22, since then she is doing wellShe denies ER visits and hospitalizations since she was last seen. Today reports:Denies chest pain.Denies shortness of breath at rest. Has mild dyspnea on exertion.No orthopnea. No PNDs.Denies heart palpitations.Denies dizziness. Denies syncope or near syncope.No ankle or leg edema.No major bleeding events.No reported side effects from medications. Taking medications as prescribed with no missed doses.Denies snoring, daytime somnolence and AM headache.*Last LDL was 63 done on 10/06/18.Pt dose not takes any statins. She is on Chemo now for lung cancer CANNOT tolerate ASA due to stomach upset and is allergic to Plavix *Had ECHO done on 08/18/21 showed LV chamber size is normal,there is borderline LVH,the estimated LVEF is 50-55%,normal left atrial pressure with grade I diastolic dysfunction,left atrium chamber is mildly dilated,the aortic valve is mildly calcified,there is mild thickening of the mitral valve anterior leaflet, there is a dense posterior mitral annular calcification, there is trace tricuspid regurgitation. *Had negative stress test done in 01/14/21 with Normal LV systolic function. Exercise tolerance: Poor. LVEF 67% She underwent peripheral angiogram with no intervention. She was incidentally noted to have AAA. 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 She is referred to follow up with vascular surgery for close follow up on that. *Had CABG X 2 done in 09/25/18:QUIGLEY to mid LAD,reserved saphenous vein graft from aorta to D2. She has a prior hx of CAD required stent placement x2 over 20 years ago at [facility]. *Had CATH done in 09/22/18 revealed severe coronary artery disease with disease noted in the LAD with a severe in stent restenosis,normal LV systolic function,significant disease of right common iliac artery . She has a strong family hx of heart disease on her fathers side. Her son passed from a AL at the age of 53. Her father passed from a AL at the age of 70. Results from this visit, or from the past:PT/INR 04-03-2020 PT 13.0 INR 0.95 PTT 33BMP 04/03/2020 NA 139 K 3.8 CH 104 CO2 25 GL 112 BUN 21 CR 0.8 CA 9.0CBC 04/03/2020 WBC 5.5 RBC 4.49 HGB 13.0 HCT 40.4 PLT 4689009/17/2019 : PT 12.0,INR 0.902 ; Na 138,K 3.9,Cl99,Co2 29,BUN 23,Creati 0.90,Glucose 151,Ca 9.1 CBC : WBC 6.6,RBC 4.69,HGB 13.7,HCT 42.5,PLT 08587: Na 138 ,K 3.6, CL 104, CO2 24, GLU 101, BUN 13, CR 0.8,10/07/18: PT 14.0, INR 1.08,PTT : HB 11.0, HT 34.403: TC 121 ,TG 95 ,HDL 39 ,LDL [id number] TYPE O POSCBC Hgb 11.0, PLT 380chem 10/10/18 k 3.6, cr0.802 FACTOR XA HEPARIN 0.21abo group + rh type, blood [id number] TYPE O POS09/23/18: CA 4.8TSH, serum or plasma [id number] 1.: TSH 0.861lipid panel, blood [id number]/01/19: Na 138, K 3.8 ,CL 105 ,CO2 26, GLU 116 , BUN 19, CR 0.60, TC 261 ,TG 61, HDL 59,LDL 148 ,CBC w/ diff [id number]/01/19: HB 13.8, HT 42.63-NSR 02/27/20 EKG: Low voltage, chest leads. Poor R progression in chest leads.08/21/2019 : EKG : Low voltage in chest leads ,PoorR progression in chest leads10/14/20-NSREKG (08): NSRpoor R progression, NSST changeselectrocardiogra m 06-49-9540qypogz sinus Rhythm poor R progression,NSST changes ,Prolonged QT when compared with ECG of 09/28/2018,premature atrial complexes no longer presentEKG, 09/05/18: Sinus Rhythm. nonspecific T wave abnormality. Abnormal EKG. [facility]: Ct, Angiogram, Chest, W/ Contrast 1) stable volume loss and consolidation with in the left upper lobe compared to at least 04/16/2020,20 Grossly stable sub 6 mm pleural nodules with in the left lung ,3) No thoracic lymphadenopathyHad echocardiogram done on 08.04.18 revealing normal LV size and function. EF 70%.03/18/20 ECHO: LV chamber size is normal. LV wall thickness is normal. LV relaxation is impaired. The aortic valve is mildly calcified. There is mild calcification of mitral valve posterior leaflet. There is mild tricuspid regurgitation. Estimated RVSP systolic pressure is 34 mmHg. Sinus bradycardia.03/03/20 24hr HOLTER: Unremarkable Holter, except for occasional PAC's and PVC's.Last stress test was done at [facility] over 2 years ago.Had CATH done in 09/22/18 revealed severe coronary artery disease with disease noted in the LAD with a severe in stent restenosis,normal LV systolic function,significant disease of right common illiac artery .Had ECHO done in 09/12/18 showed normal global systolic function , EF > 55% .Had negative stress test done in 09/12/18 with normal LV systolic function , EF 67% .Had myocardial perfusion study w/ ejection fraction (PROC) MYOCARDIAL PERFUSION STUDY: Negative stress test. 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 Normal LV systolic function. Abnormal stress rest. ArtifactUS, echocardiogram [id number], Chest 04/16/20:evolving post treatment changes with unchanged masslike soft tissue thickening and nodularity about the left upper lobe extending to the left major fissure and the left hilum,this is likely unchanges as compared to prior examination when accounting for differences in imaging and measurement technique,recommend continued imaging follow up.unchanged ground -glass nodules within the right.CT, Angiogram, Abdomen Pelvis 04/16/20 : CT, Angiogram, Abdomen Pelvis 04/16/20:infrarenal abdominal abdominal aortic ectasia,approaching size criteria for aneurysm(28x29 mm),2 mm nonobstruting left power pole renal stone,stable left adrenal nodules,most compatible with benign process such as adenomas.06/24/19 ; CTA Chest WO IV Contrast : Examination limited by lack of intravenous contrast : 1) New small focal area of ground glass with in the superior segment of the left loer lobe adjacent to the patient lung cancer This may represent progression of disease post treatment changes ,atelectasiss or a mild infectious /inflammatory proces .recommened short -term interval follow -up CT in 3 months ,2) Grossley unchanged irregular spiculatd left upper lobe mass corresponding to the patient treated primary lung cancr ,3) Grossly stable sub 6mm right upper lobe pulmonary nodules ,4) No thoracic lymphadenopathy CT chest 06/24/2019 Examination limited by lack of intravenous contrast. New small focal area of ground glass within the superior segment of the left lower lobe adjacent to the patients lung cancer. This may represent prorgression of disease, post treatment changes, atelectasis or a mild infectious/inflammatory process. Recommend short term interval follow up CT in 3 months. grossly unchanged irregular spiculated left upper lobe mass corresponding to the patients treated primary lung cancer. Grossly stable sub 6 mm right upper lobe pulmonary nodules. No thoracic lymphadenopathy CT chest 11/06/2018 Interval decrease in size of irregulat mass in the periphery of the left upper lobe apicoposterior segment, abutting the major fissure. The mass now measures 3.6 cm in greatest diameter comapred to 4.1 cm on the previous examination. Tiny indeterminate nodules in the right upper lobe, measuring 5 mm and 2 mm respectively are unchanged. No new lung nodules noted. No hilar or mediastinal lymphadenopathy is seen on this noncontrast study. Unchaged indeterminate nodule in the left adrenal gland measuring approximately 15 mm. This could be further characterized with adrenal CT or MRI if clinically indicated. Other findings as above Angiogram (PROC) 0Peripheral Angiogram moderate peripheral vascular disease, AAA, will get CTA and refferal for AAA repair. 09/12/18 TDM-Negative stress test. 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 Normal LV systolic function. Abnormal stress test. Artifact noted. LVEF 76%. Adryan Stevens MD [address] [place], [address], [facility] 02/08/2023 16:21:24 08/15/2023 text/html 08/15/23CC : Car dia follow up, dyspnea on [id number] women with a past medical history of CAD s/p CABG (09/25/18), HLD, DM is here for 6 month cardiac follow up. She was last seen in the clinic on 02/28/23, since then she is doing wellShe is on Chemo for lung Cancer Denies chest pain.Denies shortness of breath at rest. Has mild dyspnea on exertion.No orthopnea. No PNDs.Denies heart palpitations.Denies dizziness. Denies syncope or near syncope.No ankle or leg edema.No major bleeding events.No reported side effects from medications. Taking medications as prescribed with no missed doses.Denies snoring, daytime somnolence and AM headache.*Last LDL was 86 done on 10/14/22.Pt dose not takes any statins. Previously:She is on Chemo now for lung cancer CANNOT tolerate ASA due to stomach upset and is allergic to Plavix *Had ECHO done on 08/18/21 showed LV chamber size is normal,there is borderline LVH,the estimated LVEF is 50-55%,normal left atrial pressure with grade I diastolic dysfunction,left atrium chamber is mildly dilated,the aortic valve is mildly calcified,there is mild thickening of the mitral valve anterior leaflet, there is a dense posterior mitral annular calcification, there is trace tricuspid regurgitation. *Had negative stress test done in 01/14/21 with Normal LV systolic function. Exercise tolerance: Poor. LVEF 67% She underwent peripheral angiogram with no intervention. She was incidentally noted to have AAA. 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 She is referred to follow up with vascular surgery for close follow up on that. *Had CABG X 2 done in 09/25/18:QUIGLEY to mid LAD,reserved saphenous vein graft from aorta to D2. She has a prior hx of CAD required stent placement x2 over 20 years ago at [facility]. *Had CATH done in 09/22/18 revealed severe coronary artery disease with disease noted in the LAD with a severe in stent restenosis,normal LV systolic function,significant disease of right common iliac artery . She has a strong family hx of heart disease on her fathers side. Her son passed from a AL at the age of 53. Her father passed from a AL at the age of 70. Results from this visit, or from the past:PT/INR 04-03-2019 PT 13.0 INR 0.95 PTT 33BMP 04/03/2020 NA 139 K 3.8 CH 104 CO2 25 GL 112 BUN 21 CR 0.8 CA 9.0CBC 04/03/2020 WBC 5.5 RBC 4.49 HGB 13.0 HCT 40.4 PLT 4087709/17/2019 : PT 12.0,INR 0.902 ; Na 138,K 3.9,Cl99,Co2 29,BUN 23,Creati 0.90,Glucose 151,Ca 9.1 CBC : WBC 6.6,RBC 4.69,HGB 13.7,HCT 42.5,PLT 96457: Na 138 ,K 3.6, CL 104, CO2 24, GLU 101, BUN 13, CR 0.8,10/07/18: PT 14.0, INR 1.08,PTT : HB 11.0, HT 34.403: TC 121 ,TG 95 ,HDL 39 ,LDL [id number] TYPE O POSCBC Hgb 11.0, PLT 380chem 10/10/18 k 3.6, cr0.802 FACTOR XA HEPARIN 0.21abo group + rh type, blood [id number] TYPE O POS09/23/18: CA 4.8TSH, serum or plasma [id number] 1.: TSH 0.861lipid panel, blood [id number]/01/19: Na 138, K 3.8 ,CL 105 ,CO2 26, GLU 116 , BUN 19, CR 0.60, TC 261 ,TG 61, HDL 59,LDL 148 ,CBC w/ diff : HB 13.8, HT 42.63-NSR 02/27/20 EKG: Low voltage, chest leads. Poor R progression in chest leads.08/21/2019 : EKG : Low voltage in chest leads ,PoorR progression in chest leads10/14/20-NSREKG (08): NSRpoor R progression, NSST changeselectrocardiogra m [id number] sinus Rhythm poor R progression,NSST changes ,Prolonged QT when compared with ECG of 09/28/2018,premature atrial complexes no longer presentEKG, 09/05/18: Sinus Rhythm. nonspecific T wave abnormality. Abnormal EKG. [facility]: Ct, Angiogram, Chest, W/ Contrast 1) stable volume loss and consolidation with in the left upper lobe compared to at least 04/16/2020,20 Grossly stable sub 6 mm pleural nodules with in the left lung ,3) No thoracic lymphadenopathyHad echocardiogram done on 08.04.18 revealing normal LV size and function. EF 70%.03/18/20 ECHO: LV chamber size is normal. LV wall thickness is normal. LV relaxation is impaired. The aortic valve is mildly calcified. There is mild calcification of mitral valve posterior leaflet. There is mild tricuspid regurgitation. Estimated RVSP systolic pressure is 34 mmHg. Sinus bradycardia.03/03/20 24hr HOLTER: Unremarkable Holter, except for occasional PAC's and PVC's.Last stress test was done at [facility] over 2 years ago.Had CATH done in 09/22/18 revealed severe coronary artery disease with disease noted in the LAD with a severe in stent restenosis,normal LV systolic function,significant disease of right common illiac artery .Had ECHO done in 09/12/18 showed normal global systolic function , EF > 55% .Had negative stress test done in 09/12/18 with normal LV systolic function , EF 67% .Had myocardial perfusion study w/ ejection fraction (PROC) MYOCARDIAL PERFUSION STUDY: Negative stress test. 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 Normal LV systolic function. Abnormal stress rest. ArtifactUS, echocardiogram [id number], Chest 04/16/20:evolving post treatment changes with unchanged masslike soft tissue thickening and nodularity about the left upper lobe extending to the left major fissure and the left hilum,this is likely unchanges as compared to prior examination when accounting for differences in imaging and measurement technique,recommend continued imaging follow up.unchanged ground -glass nodules within the right.CT, Angiogram, Abdomen Pelvis 04/16/20 : CT, Angiogram, Abdomen Pelvis 04/16/20:infrarenal abdominal abdominal aortic ectasia,approaching size criteria for aneurysm(28x29 mm),2 mm nonobstruting left power pole renal stone,stable left adrenal nodules,most compatible with benign process such as adenomas.06/24/19 ; CTA Chest WO IV Contrast : Examination limited by lack of intravenous contrast : 1) New small focal area of ground glass with in the superior segment of the left loer lobe adjacent to the patient lung cancer This may represent progression of disease post treatment changes ,atelectasiss or a mild infectious /inflammatory proces .recommened short -term interval follow -up CT in 3 months ,2) Grossley unchanged irregular spiculatd left upper lobe mass corresponding to the patient treated primary lung cancr ,3) Grossly stable sub 6mm right upper lobe pulmonary nodules ,4) No thoracic lymphadenopathy CT chest 06/24/2019 Examination limited by lack of intravenous contrast. New small focal area of ground glass within the superior segment of the left lower lobe adjacent to the patients lung cancer. This may represent prorgression of disease, post treatment changes, atelectasis or a mild infectious/inflammatory process. Recommend short term interval follow up CT in 3 months. grossly unchanged irregular spiculated left upper lobe mass corresponding to the patients treated primary lung cancer. Grossly stable sub 6 mm right upper lobe pulmonary nodules. No thoracic lymphadenopathy CT chest 11/06/2018 Interval decrease in size of irregulat mass in the periphery of the left upper lobe apicoposterior segment, abutting the major fissure. The mass now measures 3.6 cm in greatest diameter comapred to 4.1 cm on the previous examination. Tiny indeterminate nodules in the right upper lobe, measuring 5 mm and 2 mm respectively are unchanged. No new lung nodules noted. No hilar or mediastinal lymphadenopathy is seen on this noncontrast study. Unchaged indeterminate nodule in the left adrenal gland measuring approximately 15 mm. This could be further characterized with adrenal CT or MRI if clinically indicated. Other findings as above Angiogram (PROC) 0Peripheral Angiogram moderate peripheral vascular disease, AAA, will get CTA and refferal for AAA repair. 09/12/18 TDM-Negative stress test. 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 Normal LV systolic function. Abnormal stress test. Artifact noted. LVEF 76%. SANDRA ESCOBAR [facility] [place] [place] - [facility] 08/15/2023 16:01:17 03/12/2024 text/html 03/12/24CC : Faustino luna follow [id number]-rag women with a past medical history of CAD s/p CABG (09/25/18), HLD, DM is here for 6 month cardiac follow up with labs , Arterial doppler and ECHO results. She was last seen in the clinic on 08/15/23, since then she had muscle ache from LiqvioShe is on Chemo for lung Cancer Denies chest pain.Denies shortness of breath at rest. Has mild dyspnea on exertion.No orthopnea. No PNDs.Denies heart palpitations.Denies dizziness. Denies syncope or near syncope.No ankle or leg edema.No major bleeding events.No reported side effects from medications. Taking medications as prescribed with no missed doses.Denies snoring, daytime somnolence and AM headache.*Last LDL was 86 done on 10/14/22.Pt dose not takes any statins. 02/20/2024 : WBC 5.8 HCT 32.3 PLT 213 NA 133 CR 1.10. *Brain MRI 11/14/23:No evidence of intracranial metastasis. Unchanged 10 mm extra-axial enhancing lesion overlying the right temporal lobe, most compatible with a meningioma. *She had ECHO on 09/12/23 showed LV chamber size is normal. LV wall thickness is mildly increased. The estimated left ventricle ejection fraction is 50-55% (normal). LV relaxation is impaired. The aortic valve is mildly calcified. There is a dense posterior mitral annular calcification. Mild elevation of estimated RV systolic pressure. The inferior vena cava is not well visualized. *Had Us, Doppler, Arterial on 09/05/23 showed Normal ankle-brachial index. Previously:She is on Chemo now for lung cancer CANNOT tolerate ASA due to stomach upset and is allergic to Plavix *Had ECHO done on 08/18/21 showed LV chamber size is normal,there is borderline LVH,the estimated LVEF is 50-55%,normal left atrial pressure with grade I diastolic dysfunction,left atrium chamber is mildly dilated,the aortic valve is mildly calcified,there is mild thickening of the mitral valve anterior leaflet, there is a dense posterior mitral annular calcification, there is trace tricuspid regurgitation. *Had negative stress test done in 01/14/21 with Normal LV systolic function. Exercise tolerance: Poor. LVEF 67% She underwent peripheral angiogram with no intervention. She was incidentally noted to have AAA. 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 She is referred to follow up with vascular surgery for close follow up on that. *Had CABG X 2 done in 09/25/18:QUIGLEY to mid LAD,reserved saphenous vein graft from aorta to D2. She has a prior hx of CAD required stent placement x2 over 20 years ago at [facility]. *Had CATH done in 09/22/18 revealed severe coronary artery disease with disease noted in the LAD with a severe in stent restenosis,normal LV systolic function,significant disease of right common iliac artery . She has a strong family hx of heart disease on her fathers side. Her son passed from a AL at the age of 53. Her father passed from a AL at the age of 70. Results from this visit, or from the past:PT/INR 04-03-2020 PT 13.0 INR 0.95 PTT 33BMP 04/03/2020 NA 139 K 3.8 CH 104 CO2 25 GL 112 BUN 21 CR 0.8 CA 9.0CBC 04/03/2020 WBC 5.5 RBC 4.49 HGB 13.0 HCT 40.4 PLT 3889509/17/2019 : PT 12.0,INR 0.902 ; Na 138,K 3.9,Cl99,Co2 29,BUN 23,Creati 0.90,Glucose 151,Ca 9.1 CBC : WBC 6.6,RBC 4.69,HGB 13.7,HCT 42.5,PLT 5749710/10/18: Na 138 ,K 3.6, CL 104, CO2 24, GLU 101, BUN 13, CR 0.8,10/07/18: PT 14.0, INR 1.08,PTT : HB 11.0, HT 34.403: TC 121 ,TG 95 ,HDL 39 ,LDL [id number] TYPE O POSCBC Hgb 11.0, PLT 380chem 10/10/18 k 3.6, cr0.802 FACTOR XA HEPARIN 0.21abo group + rh type, blood [id number] TYPE O POS09/23/18: CA 4.8TSH, serum or plasma [id number] 1.: TSH 0.861lipid panel, blood [id number]/01/19: Na 138, K 3.8 ,CL 105 ,CO2 26, GLU 116 , BUN 19, CR 0.60, TC 261 ,TG 61, HDL 59,LDL 148 ,CBC w/ diff : HB 13.8, HT 42.63-NSR 02/27/20 EKG: Low voltage, chest leads. Poor R progression in chest leads.08/21/2019 : EKG : Low voltage in chest leads ,PoorR progression in chest leads3-NSREKG (): NSRpoor R progression, NSST changeselectrocardiogra m [id number] sinus Rhythm poor R progression,NSST changes ,Prolonged QT when compared with ECG of 09/28/2018,premature atrial complexes no longer presentEKG, 09/05/18: Sinus Rhythm. nonspecific T wave abnormality. Abnormal EKG. [facility]: Ct, Angiogram, Chest, W/ Contrast 1) stable volume loss and consolidation with in the left upper lobe compared to at least 04/16/2020,20 Grossly stable sub 6 mm pleural nodules with in the left lung ,3) No thoracic lymphadenopathyHad echocardiogram done on 08.04.18 revealing normal LV size and function. EF 70%.03/18/20 ECHO: LV chamber size is normal. LV wall thickness is normal. LV relaxation is impaired. The aortic valve is mildly calcified. There is mild calcification of mitral valve posterior leaflet. There is mild tricuspid regurgitation. Estimated RVSP systolic pressure is 34 mmHg. Sinus bradycardia.03/03/20 24hr HOLTER: Unremarkable Holter, except for occasional PAC's and PVC's.Last stress test was done at [facility] over 2 years ago.Had CATH done in 09/22/18 revealed severe coronary artery disease with disease noted in the LAD with a severe in stent restenosis,normal LV systolic function,significant disease of right common illiac artery .Had ECHO done in 09/12/18 showed normal global systolic function , EF > 55% .Had negative stress test done in 09/12/18 with normal LV systolic function , EF 67% .Had myocardial perfusion study w/ ejection fraction (PROC) MYOCARDIAL PERFUSION STUDY: Negative stress test. 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 Normal LV systolic function. Abnormal stress rest. ArtifactUS, echocardiogram [id number], Chest 04/16/20:evolving post treatment changes with unchanged masslike soft tissue thickening and nodularity about the left upper lobe extending to the left major fissure and the left hilum,this is likely unchanges as compared to prior examination when accounting for differences in imaging and measurement technique,recommend continued imaging follow up.unchanged ground -glass nodules within the right.CT, Angiogram, Abdomen Pelvis 04/16/20 : CT, Angiogram, Abdomen Pelvis 04/16/20:infrarenal abdominal abdominal aortic ectasia,approaching size criteria for aneurysm(28x29 mm),2 mm nonobstruting left power pole renal stone,stable left adrenal nodules,most compatible with benign process such as adenomas.06/24/19 ; CTA Chest WO IV Contrast : Examination limited by lack of intravenous contrast : 1) New small focal area of ground glass with in the superior segment of the left loer lobe adjacent to the patient lung cancer This may represent progression of disease post treatment changes ,atelectasiss or a mild infectious /inflammatory proces .recommened short -term interval follow -up CT in 3 months ,2) Grossley unchanged irregular spiculatd left upper lobe mass corresponding to the patient treated primary lung cancr ,3) Grossly stable sub 6mm right upper lobe pulmonary nodules ,4) No thoracic lymphadenopathy CT chest 06/24/2019 Examination limited by lack of intravenous contrast. New small focal area of ground glass within the superior segment of the left lower lobe adjacent to the patients lung cancer. This may represent prorgression of disease, post treatment changes, atelectasis or a mild infectious/inflammatory process. Recommend short term interval follow up CT in 3 months. grossly unchanged irregular spiculated left upper lobe mass corresponding to the patients treated primary lung cancer. Grossly stable sub 6 mm right upper lobe pulmonary nodules. No thoracic lymphadenopathy CT chest 11/06/2018 Interval decrease in size of irregulat mass in the periphery of the left upper lobe apicoposterior segment, abutting the major fissure. The mass now measures 3.6 cm in greatest diameter comapred to 4.1 cm on the previous examination. Tiny indeterminate nodules in the right upper lobe, measuring 5 mm and 2 mm respectively are unchanged. No new lung nodules noted. No hilar or mediastinal lymphadenopathy is seen on this noncontrast study. Unchaged indeterminate nodule in the left adrenal gland measuring approximately 15 mm. This could be further characterized with adrenal CT or MRI if clinically indicated. Other findings as above Angiogram (PROC) 0Peripheral Angiogram moderate peripheral vascular disease, AAA, will get CTA and refferal for AAA repair. 09/12/18 TDM-Negative stress test. 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 Normal LV systolic function. Abnormal stress test. Artifact noted. LVEF 76%. Adryan Stevens MD [address] [place], [address], [facility] 03/12/2024 17:29:59 OBGyn Episode No OBEpisode recorded.
--- OUTSIDE RECORDS SUMMARY | 2024-09-07 10:47 | XMS_ITS ---
Author Organization [facility] [address] Address [address] [place] [address] Care Team Providers Care Magnetic Prospecting Supervisor Name Role Phone Carlos Kaushik DE GUZMAN Unavailable Navjot Danielson MD Unavailable [phone] Rinku Hoffmann MD Unavailable [phone] Adryan Stevens MD Unavailable [phone] Roeml Valerio MD PhD Unavailable Rachel Ramirez MD Unavailable Ivis Okeefe MD Unavailable [phone] Chandni Vang NP Primary Care Provider [phone] Active Problems Problem Noted Date Diagnosed Date Nocturnal hypoxemia 10/30/2023 Hyperlipemia 09/15/2023 Disease of cardiovascular system 09/15/2023 Sleep disorder 05/25/2023 Persons encountering health services in other specified circumstances 04/19/2022 Mass of upper lobe of left lung 03/18/2022 Overview (03/18/2022): Added automatically from request for surgery [id number] BMI 31.0-31.9,adult 11/29/2021 Consolidation of left upper lobe of lung (CMS/HC C) 09/01/2021 Overview (09/01/2021): Added automatically from request for surgery [id number] Overweight 07/05/2021 Cigarette nicotine dependence in remission 04/02 Hyperinflation of lungs 01/15/2019 Chronic obstructive pulmonary disease 01/15/2019 S/P CABG x 2 01/15/2019 Non-small cell cancer of left lung 11/08/2018 Overview (01/15/2019): Stage IA, 4 x 3 x 3 cm non-small cell lung cancer, well differentiated adenocarcinoma, PET scan showed no mediastinal or hilar lymphadenopathy, no distant metastases, patient is going for stereotactic treatment. Cardiothoracic surgery has decided against surgery. Chronic cough 11/08/2018 Leg swelling 11/08/2018 Malignant neoplasm of lung 10/27/2018 Dyspnea on exertion 09/05/2018 Malignant neoplasm of overlapping sites of left lung 08/14/2018 Essential hypertension 05/15/2016 Gastro-esophageal reflux disease without esophag itis 05/15/2016 Current Oncology Plans IV MAINTENANCE THERAPY PLAN* Plan Start Date:05/31/2022 Plan Provider:Romel Valerio MD PhD Linked Problems Non-small cell cancer of lef t lung (HCC) Treatment Medications No medications scheduled. Osimertinib Daily - Non-Small Cell Lung* Plan Start Date:06/28/2022 Plan Provider:Romel Valerio MD PhD Linked Problems Non-small cell cancer of lef t lung (HCC) Treatment Medications Current Day (Day 1 , Cycle 2 - Planned for 08/13/2024) Next Day (Day 1, Cycle 3 - Planned for 09/10/2024) No medications scheduled. No medications schedul ed. No medications scheduled. Other Current Plans INCLISIRAN (LEQVIO) INJECTION* Plan Start Date:09/22/2023 Plan Provider:Transcribed Order, Provider Linked Problems Disease of cardiovascular sy stemHyperlipidemia, unspecified hyperlipidemia type Treatment Medications No medications scheduled. Past Plans Oncology Chemotherapy Treatment Plan Name Start Date Discontinue Date Treatment Medications Discontinue Reason Plan Provider Cycles pembrolizumab / pemetrexed / CARBOplatin 21 day cycles - Non-Small Cell Lung 022 06/21/2022 CARBOplatin (PARAPLATIN)CARBO platin (PARAPLATIN) IVPB in 250 mLpembrolizumab (KEYTRUDA)PEMEtre xed (ALIMTA)PEMEtrexe d (ALIMTA) IVPB (J9305) Provider Discretion Romel Valerio MD PhD 1 of 24 cycles started Radiation Treatments * No radiation treatments are documented for this patient in [facility]. Treatments may have been administered in another system. Lifetime Dose Tracking * Chemical Lifetime Dose Automatic Entry Manual Entr y Fluoro Time 0.3 minutes 0.3 minutes 0 minutes Air kerma at the reference point (Ka,r) 1 mGy 1 mGy 0 mGy DLP 1,370 mGycm 1,370 mGycm 0 mGycm Resolved Problems Problem Noted Date Diagnosed Date Resolved Date History of nicotine dependence 11/08/2018 07/05/2021 Overview (01/15/2019): Prior to quitting, pt smoked about 1/4 ppd x 20+ yrs. Pre-op evaluation 11/08/2018 07/05/2021
--- OUTSIDE RECORDS SUMMARY | 2024-09-07 10:47 | XMS_ITS | Clinical Summary ---
Author Organization [facility] Address [address] [place] [id number] Phone Care Team Providers Care Client Engagement Specialist Name Role Phone Unavailable Primary Care Provider Unavailabl e Medications Medication Sig Dispensed Refills Start Date End Date Status triamterene-hydroCHLORO thiazide (MAXZIDE-25) 37.5-25 MG per tablet 1 tab/cap qday 0 07/11/2016 Active amLODIPine (NORVASC) 5 MG tablet 1 tab/cap qday 0 05/15/2016 Active levothyroxine (SYNTHROID, LEVOTHROID) 75 MCG tablet 1 tab/cap qday 0 05/15/2016 Active LORazepam (ATIVAN) 0.5 MG tablet 1 tab/cap qday PRN 0 05/15/2016 Active candesartan (ATACAND) 32 MG tablet 1 tab/cap qday 0 05/15/2016 Active cholecalciferol (VITAMIN D-3) 400 units tablet 1 tab/cap qday 0 05/15/2016 Active lansoprazole (PREVACID) [address] capsule 1 tab/cap qday 0 05/15/2016 Acti ve Active Problems Problem Noted Date Diagnosed Date Atherosclerotic heart diseas e of [place] coronary artery without angina pectoris 05/15/2016 Essential (primary) hypertension 05/15/2016 Other hyperlipidemia 05/15/2016 Overview (10/20/2018): Converted unresolved ICD9, potential mismatch. Gastro-esophageal reflux disease without esophag itis 05/15/2016 Primary generalized osteoarthritis 05/15/2016 Gout 05/15/2016 Family History Medical History Relation Comments Hypertensive disorder Child Coronary arteriosclerosis Father Heart disease Father Kidney disease Neg Hx Kidney stone Neg Hx Relation Status Comments Child Father Social History Tobacco Use Types Packs/Day Years Used Date Smoking Tobacco: Never Assessed Sex and Gender Information Value Date Recorded Sex Assigned at Not on file Gender Identity Not on file Sexual Orientation Not on file Last Filed Vital Signs Vital Sign Reading Time Taken Comments Blood Pressure 148/82 10/05/2016 12:01 AM COAT BASTER Sitting, Right Pulse - - Temperature 36.8 ??C (98.3 ??F) 10/05/2016 1 2:01 AM COAT BASTER Respiratory Rate - - Oxygen Saturation - - Inhaled Oxygen Concentration - - Weight 63.5 kg (140 lb) 10/05/2016 12:0 1 AM COAT BASTER Height 144.8 cm (4' 9 ) 10/05/2016 12:0 1 AM COAT BASTER Body Mass Index 30.3 10/05/2016 12:01 AM COAT BASTER Plan of Treatment Not on file
--- OUTSIDE RECORDS SUMMARY | 2024-09-07 10:47 | XMS_ITS | Referral Summary ---
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 [address] [place] [phone] Danica Ramirez RN 08/20/2024 2:15 PM DIRECTOR PUBLIC SERVICE Clinical Support [facility] [address] [place] [address] Malignant neoplasm of overlapping sites of left lung (HCC) 08/20/2024 2:30 PM DIRECTOR PUBLIC SERVICE Office Visit [facility] Physicians [facility] Oncology [address] [place] [address] [address] [place] [phone] Romel Valerio MD PhD Malignant neoplasm of overlapping sites of left lung (HCC) (Primary Dx) 08/06/2024 2:11 PM DIRECTOR PUBLIC SERVICE - 08/06/2024 11:59 PM DIRECTOR PUBLIC SERVICE Hospital Encounter [facility] [address] [place] [address] Malignant neoplasm of overlapping sites of left lung (HCC) Discharge Disposition: Discharge to home or self care from Last 3 Months Allergies Active Allergy Reactions Criticality Noted Date Comments Fluticasone Propion-Salmeterol Other (See comments) Low 07/28/2020 Mouth sores Other Other (See comments) Low 03/21/2022 Skin breakout from paper mask Clopidogrel Hives Medium 08/16/2018 Tiotropium [place] Hives Medium 04/02/2019 Medications denosumab (PROLIA) 60 mg/mL syringe Inject under the skin every 6 (six) months Every 6 months. 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 Active aspirin 81 mg enteric coated tablet Take 1 tablet (81 mg total) by mouth daily Active docusate sodium (COLACE) 100 mg capsuleIndicati ons:constipatio n Take 1 capsule (100 mg total) by mouth daily Active candesartan (ATACAND) 32 mg tablet Take 1 tablet (32 mg total) by mouth nightly Active omeprazole (PriLOSEC) 10 mg capsule Take 1 capsule (10 mg total) by mouth 2 (two) times a day Active blood-glucose meter misc OneTouch Verio Flex Meter USE DIRECTED Active OneTouch Verio Flex meter misc as directed 08/17/19 22 Active cholecalciferol (VITAMIN D-3) 2000 unit capsule Take 1 capsule (2,000 Units total) by mouth daily Active calcium citrate/vitamin D3 (CITRACAL + D ORAL) Take 1 tablet by mouth 2 (two) times a day Active triamcinolone (KENALOG) 0.1 % cream Apply topically 2 (two) times a day Apply to neck- not to face 453 g 08/15/19 23 Active osimertinib (Tagrisso) 80 mg tablet Take 1 tablet (80 mg total) by mouth daily 30 tablet 3 05/16/20 24 Active albuterol 2.5 mg /3 mL (0.083 %) nebulizer solutionIndicat ions:Chronic obstructive pulmonary disease, unspecified COPD type (HCC) USE 1 VIAL IN NEBULIZER EVERY 6 HOURS - as needed for wheezing or shortness of breath 3 mL 11 08/29/19 25 Active diclofenac sodium (VOLTAREN) 1 % gel 06/17/20 24 Active folic acid (FOLVITE) 1 mg tabletIndicatio ns:Persons encountering health services in other specified circumstances,N on-small cell cancer of left lung (HCC) Take 1 tablet by mouth daily starting 7 days before the first treatment and continuing until 21 days after the last pemetrexed treatment 30 tablet 5 05/31/20 22 2021 Discontinued albuterol 2.5 mg /3 mL (0.083 %) nebulizer solutionIndicat ions:Chronic obstructive pulmonary disease, unspecified COPD type (HCC) Take 3 mL (2.5 mg total) by nebulization every 6 (six) hours as needed for wheezing or shortness of breath 360 mL 11 10/31/19 24 2024 Discontinued Active Problems Problem Noted Date Diagnosed Date Nocturnal hypoxemia 10/30/2023 Hyperlipemia 09/15/2023 Disease of cardiovascular system 09/15/2023 Sleep disorder 05/25/2023 Persons encountering health services in other specified circumstances 04/19/2022 Mass of upper lobe of left lung 03/18/2022 Overview (03/18/2022): Added automatically from request for surgery [id number] BMI 31.0-31.9,adult 11/29/2021 Consolidation of left upper lobe of lung (CMS/HC C) 09/01/2021 Overview (09/01/2021): Added automatically from request for surgery [id number] Overweight 07/05/2021 Cigarette nicotine dependence in remission [...] Gastro-esophageal reflux disease without esophag itis 05/15/2016 Resolved Problems Problem Noted Date Diagnosed Date Resolved Date History of nicotine dependence 11/08/2018 07/05/2021 Overview (01/15/2019): Prior to quitting, pt smoked about 1/4 ppd x 20+ yrs. Pre-op evaluation 11/08/2018 07/05/2021 Social History Tobacco Use Types Packs/Day Years Used Date Smoking Tobacco: Former Cigarettes 0.5 44 1 975 - 08/2018 Smokeless Tobacco: Never Tobacco Cessation:Counseling Given: Not Answered Alcohol Use Standard Drinks/Week Comments Not Currently 0 (1 standard drink = 0.6 oz pur e alcohol) AUDIT-C Answer Date Recorded Frequency of Alcohol Consumption Not on file 08/20/2024 Q2: How many drinks containi ng alcohol do you have on a typical day when you are drinking? 1 or 2 08/20/2024 Q3: How often do you have si x or more drinks on one occasion? Less than monthly 08/20/2024 Comments Unknown Sex and Gender Information Value Date Recorded Sex Assigned at Not on file Legal Sex Female 4:07 AM DIRECTOR PUBLIC SERVICE Gender Identity Not on file Sexual Orientation Not on file Last Filed Vital Signs Vital Sign Reading Time Taken Comments Blood Pressure 142/68 09/02/2024 1:10 PM DIRECTOR PUBLIC SERVICE Pulse 75 09/02/2024 1:10 PM DIRECTOR PUBLIC SERVICE Temperature 36.6 ??C (97.8 ??F) 08/20/2024 3:00 PM CS T Respiratory Rate 18 08/20/2024 3:00 PM DIRECTOR PUBLIC SERVICE Oxygen Saturation 97% 09/02/2024 1:10 PM DIRECTOR PUBLIC SERVICE Inhaled Oxygen Concentration - - Weight 65.3 kg (144 lb) 09/02/2024 1:10 PM DIRECTOR PUBLIC SERVICE Height 144.8 cm (4' 9 ) 05/02/2024 2:18 PM CDT Body Mass Index 31.16 05/02/2024 2:18 PM CDT Plan of Treatment Not on file Medical Devices Implanted Type Area Paint Laboratory Technician Device Identifier Shelf Expiration Date Model / Serial / Lot Cardiac Stent Coronary Artery [employer] Power Port 8fr [id number] - [id number] Implanted:Qty: 1 on 06/03/2022 at [facility] [employer] 02/06/2027 [id number] / / [id number] Procedures Procedure Name Priority Date/Time Associated Diagnosis Comments EGFR Routine 08/20/2024 2:02 PM DIRECTOR PUBLIC SERVICE Malignant neoplasm of overlapping sites of left lung (HCC) DIFFERENTIAL AUTO Routine 08/20/2024 2:0 2 PM DIRECTOR PUBLIC SERVICE Malignant neoplasm of overlapping sites of left lung (HCC) CBC WITH AUTO DIFFERENTIAL Routine 08/20/2024 2:02 PM DIRECTOR PUBLIC SERVICE Malignant neoplasm of overlapping sites of left lung (HCC) COMPREHENSIVE METABOLIC PANEL Routine 08/20/2024 2:02 PM DIRECTOR PUBLIC SERVICE Malignant neoplasm of overlapping sites of left lung (HCC) CT CHEST ABDOMEN PELVIS W CONTRAST Schedule Routine, Read Routine (OP Routine) 08/06/2024 2:25 PM DIRECTOR PUBLIC SERVICE Malignant neoplasm of overlapping sites of left lung (HCC) POCT CREATININE FOR CONTRAST EVALUATION Routine 08/06/2024 2:20 PM DIRECTOR PUBLIC SERVICE from Last 3 Months Results * (ABNORMAL) eGFR (08/20/2024 2:02 PM DIRECTOR PUBLIC SERVICE) eGFR 37(L) >=60 mL/min/1. 73 m2 Comment: Interpretive Data Reference Interval Normal ?>/= 90 mL/min/1.73m2 Mildly decreased* ? 60 - 89 mL/min/1.73m2 Mildly to moderately decreased ?45 - 59 mL/min/1.73m2 Moderately to severely decreased ??30 - 44 mL/min/1.73m2 Severely decreased ?15 - 29 mL/min/1.73m2 Kidney Failure ?< 15 ??mL/min/1.73m2 *Relative to young adult level Estimated glomerular filtration rate is determined by the 2020 CKD-EPI equation recommended by the National Kidney Foundation (A Unifying Approach to GFR Estimation: Recommendations of the NKF-ASK Task Force on Reassessing the Inclusion of Race in Diagnosing Kidney Disease, JASN 2020). The CKD-EPI equation should not be used for patients with unstable renal function and has not been validated in children and those over 70. Current interpretive data was last reviewed 2021. Testing performed by: [facility], [address] [place] [address]., [address] Blood 08/20/2024 2:02 PM DIRECTOR PUBLIC SERVICE 08/20/2024 2:08 PM DIRECTOR PUBLIC SERVICE us Romel Valerio MD PhD LAB BLOOD ORDERABLES Final Result [facility] [address] [facility] [facility] [place] [address] * Differential, auto (08/20/2024 2:02 PM DIRECTOR PUBLIC SERVICE) Pathologist [facility] Neutrophil abs 3.0 1.5 - 6.5 K/cumm Comment:Testing performed by : [facility], [address] [place] [address], [place]., [address] Imm gran abs 0.0 0.0 - 0.1 K/cumm [facility] Comment:Testing performed by : [facility], [address] [place] [address], [place]., [address] Lymphocyte abs 1.3 0.8 - 3.3 K/cumm [facility] Comment:Testing performed by : [address], [place]., [address] Monocyte abs 0.6 0.2 - 0.8 K/cumm [facility] Comment:Testing performed by : [address], [place]., [address] Eosinophil abs 0.1 0.0 - 0.5 K/cumm [facility] Comment:Testing performed by : [address], [place]., [address] Basophil abs 0.0 0.0 - 0.1 K/cumm [facility] Comment:Testing performed by : [address] [address] Neutrophil pct 58.9 % [facility] Comment: Interpretive Data Percent cell count reference ranges are not reported, since discordance with absolute values may lead to misinterpretation of CBC data. Current Interpretive Data was last revised on 2017. Testing performed by: [address] [address] Imm gran pct 0.2 % [facility] Comment: Interpretive Data Percent cell count reference ranges are not reported, since discordance with absolute values may lead to misinterpretation of CBC data. Current Interpretive Data was last revised on 2017. Testing performed by: [address] [address] Lymphocyte pct 25.7 % [facility] Comment: Interpretive Data Percent cell count reference ranges are not reported, since discordance with absolute values may lead to misinterpretation of CBC data. Current Interpretive Data was last revised on 2017. Testing performed by: [address] [address] Monocyte pct 12.5 % [facility] Comment: Interpretive Data Percent cell count reference ranges are not reported, since discordance with absolute values may lead to misinterpretation of CBC data. Current Interpretive Data was last revised on 2017. Testing performed by: [address] [address] Eosinophil pct 2.3 % [facility] Comment: Interpretive Data Percent cell count reference ranges are not reported, since discordance with absolute values may lead to misinterpretation of CBC data. Current Interpretive Data was last revised on 2017. Testing performed by: [address] [address] Basophil pct 0.4 % [facility] Comment: Interpretive Data Percent cell count reference ranges are not reported, since discordance with absolute values may lead to misinterpretation of CBC data. Current Interpretive Data was last revised on 2017. Testing performed by: [address] [address] Blood 08/20/2024 2:02 PM DIRECTOR PUBLIC SERVICE 08/20/2024 2:08 PM DIRECTOR PUBLIC SERVICE us Romel Valerio MD PhD LAB BLOOD ORDERABLES Final Result [facility] [address] Department of Laboratories [place], [place] [id number] * (ABNORMAL) CBC with auto differential (08/20/2024 2:02 PM DIRECTOR PUBLIC SERVICE) Pathologist [facility] WBC 5.1 3.8 - 9.9 K/cumm Comment:Testing performed by : [address] [address] Hgb 10.9(L) 11.9 - 15.5 g/dL [facility] Comment:Testing performed by : [address] [address] Hct 34.0(L) 35.6 - 45.5 % [facility] Comment:Testing performed by : [address] [address] Plt 221 150 - 400 K/cumm [facility] Comment:Testing performed by : [address] [address] MPV 9.1 9.1 - 12.3 fL [facility] Comment:Testing performed by : [address] [address] RBC 4.04 3.90 - 5.20 M/cumm [facility] Comment:Testing performed by : [address] [address] MCV 84.2 81.3 - 96.4 fL [facility] Comment:Testing performed by : [address] [address] MCH 27.0(L) 27.1 - 33.3 pg [facility] Comment:Testing performed by : [address] [address] MCHC 32.1(L) 32.3 - 35.7 g/dL [facility] Comment:Testing performed by : [address] [address] RDW CV 15.9(H) 11.1 - 14.9 % [facility] Comment:Testing performed by : [address] [address] RDW SD 49.1(H) 35.7 - 48.1 fL [facility] Comment:Testing performed by : [address] [address] NRBC abs 0.00 0.00 - 0.01 K/cumm [facility] Comment:Testing performed by : [address] [address] Blood 08/20/2024 2:02 PM DIRECTOR PUBLIC SERVICE 08/20/2024 2:08 PM DIRECTOR PUBLIC SERVICE us Romel Valerio MD PhD LAB BLOOD ORDERABLES Final Result [facility] [address] [facility] Department [place] [address] * (ABNORMAL) Comprehensive metabolic panel (08/20/2024 2:02 PM DIRECTOR PUBLIC SERVICE) Sodium 137 135 - 145 mmol/L Comment:Testing performed by : [address] [address] Potassium, pl 4.0 3.3 - 4.9 mmol/L [facility] Comment:Testing performed by : [address], [place]., [address] Chloride 100 97 - 110 mmol/L [facility] Comment:Testing performed by : [address], [place]., [address] CO2 24 22 - 32 mmol/L [facility] Comment:Testing performed by : [address] [address] Anion gap 13 2 - 15 mmol/L [facility] Comment:Testing performed by : [address], [place]., [address] BUN 24 6 - 25 mg/dL [facility] Comment:Testing performed by : [address], [place]., [address] Creatinine 1.40(H) 0.60 - 1.10 mg/dL [facility] Comment:Testing performed by : [address] [address] Glucose 107 70 - 199 mg/dL [facility] Comment: Interpretive Data Fasting glucose >/= 126 mg/dl is diagnostic for diabetes. ?? Fasting is defined as no caloric intake for at least 8 hours. Fasting glucose between 100 mg/dl to 125 mg/dl is diagnostic of prediabetes. In a patient with classic symptoms of hyperglycemia or hyperglycemic crisis, a random glucose >/= 200 mg/dl is diagnostic for diabetes. In the absence of unequivocal hyperglycemia, results should be confirmed by repeat testing. The classification and Diagnosis of Diabetes Diabetes Care 202; 46: S19-S40. Current interpretive data was last revised 2022. Testing performed by: [address] [address] Calcium 9.1 8.5 - 10.3 mg/dL [facility] Comment:Testing performed by : [address] [address] Bilirubin, total 0.2 0.1 - 1.2 mg/dL [facility] Comment:Testing performed by : [address] [address] Protein, pl 7.3 6.5 - 8.5 g/dL [facility] Comment:Testing performed by : [address] [address] Albumin 4.1 3.5 - 5.0 g/dL [facility] Comment:Testing performed by : [address] [address] Alk phos 57 40 - 130 Units/L [facility] Comment:Testing performed by : [address] [address] ALT 15 7 - 45 Units/L [facility] Comment:Testing performed by : [address] [address] AST 27 10 - 45 Units/L [facility] Comment:Testing performed by : [address] [address] Blood 08/20/2024 2:02 PM DIRECTOR PUBLIC SERVICE 08/20/2024 2:08 PM DIRECTOR PUBLIC SERVICE Romel Valerio MD PhD LAB BLOOD ORDERABLES Final Result [facility] [facility] Department of Laboratories [place], [place] [id number] * CT chest abdomen pelvis with contrast (08/06/2024 2:25 PM DIRECTOR PUBLIC SERVICE) Anatomical Region Laterality Modality Body N/A Computed Tomogra phy 08/12/2024 8:06 AM DIRECTOR PUBLIC SERVICE Narrative 08/12/2024 8:23 AM DIRECTOR PUBLIC SERVICE EXAM DESCRIPTION: CT CHEST ABDOMEN PELVIS W CONTRAST REASON FOR STUDY: Restaging lung ca ?? Restaging lung ca, Malignant neoplasm of overlapping sites of left lung (HCC) ? TECHNIQUE: CT scan of the chest, abdomen, and pelvis performed with intravenous and ??without ??oral contrast using helical scanning technique with dynamic intravenous contrast injection. Reconstructed coronal and sagittal MPR images reviewed. All images stored on PACS. Automated exposure control was used as a dose optimization technique for this examination. CONTRAST TYPE/DOSE: 100mL of IOVERSOL 350 MG IODINE/ML INTRAVENOUS SYRINGE ?? injected via ?? intravenous COMPARISON: 05/09/2024. FINDINGS: CHEST LUNGS: ?? There is an area of wedge-shaped opacity in the left apex, this is 7.4 x 5.6 cm and unchanged likely an area of treated disease. ??There is associated left upper lobe volume loss. ??There is a right upper lobe 0.4 cm (series 3 image 21). ??There is medial right lower lobe paravertebral atelectasis. PLEURA: ?? No pleural effusion or pneumothorax. MEDIASTINUM/SHIRLEY: ?? No mediastinal or hilar mass. HEART: ?? Heart size normal. ??No pericardial effusion. ??There is a similar appearance at the left ventricular apex which appears to be a area of thinned myocardium likely from apical infarction. ??Mitral annular and extensive coronary artery calcifications are noted. VASCULATURE CHEST: ?? No incidental filling defect in the central pulmonary arteries. ??The thoracic aorta is nonaneurysmal. AXILLA: ?? No axillary lymphadenopathy. CHEST WALL: ?? No chest wall mass or subcutaneous emphysema. HARDWARE/LINES/TUBES: ?? None. MUSCULOSKELETAL CHEST: ?? Bone windows demonstrate no acute or aggressive osseous abnormality. ABDOMEN/PELVIS LIVER: ?? Liver size and contour are normal. ??No focal hepatic lesion. ??Portal and hepatic veins are patent. GALLBLADDER: ?? No gallstones or overt inflammatory change. BILE DUCTS: ?? No biliary ductal dilation. SPLEEN: ?? Spleen size is normal. ??No focal splenic lesion. PANCREAS: ?? No pancreatic mass or inflammatory change. ?? ADRENALS: ?? Normal KIDNEYS/URINARY TRACT: ?? No right renal calculus. ??No left renal calculus. ??No hydronephrosis or hydroureter. ??There is the low-density lesion in the mid left kidney 1 cm, 72 Hounsfield units. ??There is a calculus from the lower pole the left kidney 0.4 cm (series 6, image 47). ??Right renal vascular calcifications are noted. ??Small amount of fluid urinary bladder. ??The urinary bladder is predominantly decompressed. ??There is some mucosal enhancement of the urinary bladder wall. GI: ?? No evidence of bowel obstruction. ??Minimal colonic diverticulosis. ??No evidence of acute diverticulitis. ??The terminal ileum is normal. ??The appendix is not identified. PERITONEUM: ?? No ascites or free air. ??No mesenteric mass or lymphadenopathy. RETROPERITONEUM: ?? No retroperitoneal mass or lymphadenopathy. REPRODUCTIVE: ?? No significant abnormalities are seen. ??The uterus is surgically absent. ??There is no adnexal mass. VASCULATURE ABDOMEN: ?? Abdominal aorta is mildly aneurysmal, this measures 3.4 by 3.4 cm (series 6, image 52). ??Moderate atheromatous calcification of the iliac arteries. MUSCULOSKELETAL ABDOMEN PELVIS: ?? Bone windows demonstrate no acute or aggressive osseous abnormality. ??There is trace anterolisthesis L3 on L4 and L4 on L5. OTHER: ?? No significant abnormality. IMPRESSION: No evidence of metastatic disease within the chest, abdomen, or pelvis. Unchanged wedge-shaped opacity in the left apex likely an area of treated disease. Small 0.4 cm right upper lobe nodule unchanged. ??Continued attention on follow-up imaging recommended. 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 Abdominal aortic aneurysm 3.4 cm. 3.0-3.9 cm Recommended surveillance imaging at 3-year intervals per Society for Vascular Surgery Guidelines: J Vasc Surgery 2008 50: s2s49; updated Aug 2017 J Vasc Surgery 67:277 Mucosal enhancement of the urinary bladder wall, correlation with urinalysis recommended to exclude cystitis. Indeterminate but unchanged left renal lesion 1 cm, by report this is stable from 08/26/2022 by remains indeterminate. ??If this has not been fully characterized, could consider renal mass protocol MRI or CT. Nonobstructing left renal calculus 0.4 cm. Hysterectomy. THIS IS AN ELECTRONICALLY VERIFIED FINAL REPORT 08/12/2024 8:23 AM - Electronically signed by ??Dennys Armstrong M.D. CH: D: ??08/12/2024 8:23 AM T: ??08/12/2024 8:23 AM Report ID: [id number] Reading Location: ??[id number] Procedure Note Dennys Armstrong Jr., MD - 08/12/2024 EXAM DESCRIPTION: CT CHEST ABDOMEN PELVIS W CONTRAST REASON FOR STUDY: Restaging lung ca Restaging lung ca, Malignant neoplasm of overlapping sites of left lung(HCC) TECHNIQUE: CT scan of the chest, abdomen, and pelvis performed with intravenous and without oral contrast using helical scanning techniquewith dynamic intravenous contrast injection. Reconstructed coronal and sagittalMPR images reviewed. All images stored on PACS. Automated exposure control was used as a dose optimization technique for this examination. CONTRAST TYPE/DOSE: 100mL of IOVERSOL 350 MG IODINE/ML INTRAVENOUS SYRINGE injected via intravenous COMPARISON: 05/09/2024. FINDINGS: CHEST LUNGS: There is an area of wedge-shaped opacity in the left apex, thisis 7.4 x 5.6 cm and unchanged likely an area of treated disease. There is associated left upper lobe volume loss. There is a right upper lobe 0.4cm (series 3 image 21). There is medial right lower lobe paravertebral atelectasis. PLEURA: No pleural effusion or pneumothorax. MEDIASTINUM/SHIRLEY: No mediastinal or hilar mass. HEART: Heart size normal. No pericardial effusion. There is a similar appearance at the left ventricular apex which appears to be a area ofthinned myocardium likely from apical infarction. Mitral annular and extensive coronary artery calcifications are noted. VASCULATURE CHEST: No incidental filling defect in the central pulmonary arteries. The thoracic aorta is nonaneurysmal. AXILLA: No axillary lymphadenopathy. CHEST WALL: No chest wall mass or subcutaneous emphysema. HARDWARE/LINES/TUBES: None. MUSCULOSKELETAL CHEST: Bone windows demonstrate no acute or aggressive osseous abnormality. ABDOMEN/PELVIS LIVER: Liver size and contour are normal. No focal hepatic lesion.Portal and hepatic veins are patent. GALLBLADDER: No gallstones or overt inflammatory change. BILE DUCTS: No biliary ductal dilation. SPLEEN: Spleen size is normal. No focal splenic lesion. PANCREAS: No pancreatic mass or inflammatory change. ADRENALS: Normal KIDNEYS/URINARY TRACT: No right renal calculus. No left renal calculus.No hydronephrosis or hydroureter. There is the low-density lesion in the mid left kidney 1 cm, 72 Hounsfield units. There is a calculus from the lower pole the left kidney 0.4 cm (series 6, image 47). Right renal vascular calcifications are noted. Small amount of fluid urinary bladder. Theurinary bladder is predominantly decompressed. There is some mucosal enhancementof the urinary bladder wall. GI: No evidence of bowel obstruction. Minimal colonic diverticulosis.No evidence of acute diverticulitis. The terminal ileum is normal. Theappendix is not identified. PERITONEUM: No ascites or free air. No mesenteric mass orlymphadenopathy. RETROPERITONEUM: No retroperitoneal mass or lymphadenopathy. REPRODUCTIVE: No significant abnormalities are seen. The uterus is surgically absent. There is no adnexal mass. VASCULATURE ABDOMEN: Abdominal aorta is mildly aneurysmal, this measures3.4 by 3.4 cm (series 6, image 52). Moderate atheromatous calcification ofthe iliac arteries. MUSCULOSKELETAL ABDOMEN PELVIS: Bone windows demonstrate no acute or aggressive osseous abnormality. There is trace anterolisthesis L3 on L4and L4 on L5. OTHER: No significant abnormality. IMPRESSION: No evidence of metastatic disease within the chest, abdomen, or pelvis. Unchanged wedge-shaped opacity in the left apex likely an area of treated disease. Small 0.4 cm right upper lobe nodule unchanged. Continued attention on follow-up imaging recommended. 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 Abdominal aortic aneurysm 3.4 cm. 3.0-3.9 cm Recommended surveillanceimaging at 3-year intervals per Society for Vascular Surgery Guidelines: J Vasc Surgery 2008 50: s2s49; updated Aug 2017 J Vasc Surgery 67:277 Mucosal enhancement of the urinary bladder wall, correlation withurinalysis recommended to exclude cystitis. Indeterminate but unchanged left renal lesion 1 cm, by report this isstable from 08/26/2022 by remains indeterminate. If this has not been fully characterized, could consider renal mass protocol MRI or CT. Nonobstructing left renal calculus 0.4 cm. Hysterectomy. THIS IS AN ELECTRONICALLY VERIFIED FINAL REPORT 08/12/2024 8:23 AM - Electronically signed by Dennys Armstrong M.D. CH: DAMON Report ID: [id number] Reading Location: [id number] us Romel Valerio MD PhD IMG CT PROCEDURES Fin al Result * (ABNORMAL) POCT creatinine for contrast evaluation (08/06/2024 2:20 PM DIRECTOR PUBLIC SERVICE) Creatinine POC 1.20(H) 0.60 - 1.10 mg/dL Comment:Testing performed by : [facility], [address] [place] [address]., [address] Blood 08/06/2024 2:20 PM DIRECTOR PUBLIC SERVICE 08/06/2024 2:20 PM DIRECTOR PUBLIC SERVICE us Romel Valerio MD PhD POINT OF CARE TEST OR DERABLES Final Result ABDIEL [facility] [address] [facility] Department [place] [address] from Last 3 Months Insurance MEDICARE [employer] LIFE MEDICARE FOR LIFE MEDICARE FOR LIFE Advance Directives For more information, please contact: [phone] Documents on File Type Date Recorded Patient Supervisor Metal Furniture Fabrication Expl anation ADVANCE DIRECTIVE 09/30/2018 12:00 AM JAY JAY R OF RETAIL CUSTODIAL ASSOCIATE FINANCIAL/MEDICAL * Full Code (Latest Code Status on File) Date Activated Date Inactivated Comments 06/03/2022 8:52 AM 06/04/2022 5:14 AM Care Teams Public Relations Coordinator Relationship Specialty Start Date End Date Chandni Vang NP [address] [address] PCP - General Nurse Practitioner 08/22/23 Kaushik Gonzalez DO Referring Physician Internal Medicine 08/09/18 Navjot Danielson MD Cardiothoracic Surgery 08/21/18 Rinku Hoffmann MD Radiation Oncologist Radiation Oncology 07/28/21 Adryan Stevens MD Consulting Physician Cardiovascular Disease 09/02/21 Romel Valerio MD PhD [address] [place] [address] MEDICAL ONCOLOGY, [address] [phone] Consulting Physician Medical Oncology 04/04/22 Rachel Ramirez MD [address] [place] [address] MEDICAL ONCOLOGY, [address] [id number] Consulting Physician Pulmonary Disease 04/20/22 Ivis Okeefe MD [address] [place] [address] MEDICAL ONCOLOGY, [address] [id number] Referring Physician Dermatology 08/30/22
--- OUTSIDE RECORDS SUMMARY | 2024-09-07 10:47 | XMS_ITS | Clinical Summary ---
Author Organization [facility] [place] [address] Address [address] [place] [address] Care Team Providers Care Trade Embalmer Name Role Phone Kaushik Gonzalez Unavailable Navjot Danielson MD Unavailable [phone] Rinku Hoffmann MD Unavailable [phone] Adryan Stevens MD Unavailable [phone] Romel Valerio MD PhD Unavailable Rachel Ramirez MD Unavailable [phone] Ivis Okeefe MD Unavailable [phone] Chandni Vang NP Primary Care Provider [phone] Allergies Active Allergy Reactions Criticality Noted Date Comments Fluticasone Propion-Salmeterol Other (See comments) Low 07/28/2020 Mouth sores Other Other (See comments) Low 03/21/2022 Skin breakout from paper mask Clopidogrel Hives Medium 08/16/2018 Tiotropium [place] Hives Medium 04/02/2019 Medications denosumab (PROLIA) 60 mg/mL syringe Inject under the skin every 6 (six) months Every 6 months. Last time oct 3 Active amLODIPine (NORVASC) 5 mg tablet Take 1 tablet (5 mg total) by mouth daily Active levothyroxine (SYNTHROID, LEVOTHROID) 75 mcg tablet Take 1 tablet (75 mcg total) by mouth technical planner before breakfast Active aspirin 81 mg enteric [...] (03/18/2022): Added automatically from request for surgery [id number] BMI 31.0-31.9,adult 11/29/2021 Consolidation of left upper lobe of lung (CMS/HC C) 09/01/2021 Overview (09/01/2021): Added automatically from request for surgery [id number] Overweight 07/05/2021 Cigarette nicotine dependence in remission [...] x 20+ yrs. Pre-op evaluation 11/08/2018 07/05/2021 Encounters Date Type Department Care Team Description 09/02/2024 1:30 PM IT TEACHER Office Visit [facility] Pulmonology [address] [facility] [address] [place] [address] Rachel Ramirez MD Non-small cell cancer of left lung (HCC) (Primary Dx); Chronic cough; Mixed simple and mucopurulent chronic bronchitis (HCC); Hyperinflation of lungs; Cigarette nicotine dependence in remission; S/P CABG x 2; BMI 31.0-31.9,adult; Nocturnal hypoxemia 08/23/2024 Telephone [facility] [facility] [address] [place] [address] Danica Ramirez RN 08/20/2024 2:30 PM IT TEACHER Office Visit [facility] [address] [place] [address] [address] [place] [id number] Romel Valerio MD PhD Malignant neoplasm of overlapping sites of left lung (HCC) (Primary Dx) 08/20/2024 2:15 PM IT TEACHER Clinical Support [facility] at [address] [address] Malignant neoplasm of overlapping sites of left lung (HCC) 08/06/2024 2:11 PM IT TEACHER - 08/06/2024 11:59 PM IT TEACHER Hospital Encounter [facility] [address] [place] [address] Malignant neoplasm of overlapping sites of left lung (HCC) Discharge Disposition: Discharge to home or self care from Last 3 Months Surgical History Surgery Date Site/Laterality Comments CORONARY ANGIOPLASTY WITH STENT PLACEMENT 08/07/1997 - 08/06/1998 WRIST SURGERY Left cyst removal CATARACT EXTRACTION, BILATERAL 11/05/2020 - 12/04/2020 BUNIONECTOMY Right COLONOSCOPY 08/07/2020 - 08/06/2021 normal HYSTERECTOMY 08/07/1959 - 08/06/1960 ovaries still intact CORONARY ARTERY BYPASS GRAFT 09/07/2018 - 10/04/2018 THYROIDECTOMY BRONCHOSCOPY 03/07/2022 - 04/06/2022 with biopsy PORT PLACEMENT CHEST >5 YEARS 06/03/2022 N/A Medical History Medical History Date Comments Coronary artery disease Hypertension Osteoporosis Chronic cough 11/08/2018 Motion sickness car Chronic bronchitis (HCC) Type 2 diabetes mellitus (HCC) n iddm GERD (gastroesophageal reflux disease) managed with meds COPD (chronic obstructive pu lmonary disease) ([facility]) Shingles 11/2020 has had on and o ff to face/scalp since 11/2020, currently has around right eye-has had valtrex and medrol dose pack, started on gabapentin. 03/21 per patient does not have active shingel. no blister but its comes and goes Wears glasses Chronic shortness of breath Chest pain intermittent chanel n to left side of chest, Dr. Ramirez addresses in recent note Stress incontinence wears pad Abdominal aortic aneurysm (AAA) ([facility]) seen on angiogram, primary monitoring Presence of dental bridge perman ent Dental crown present Non-small cell cancer of lef t lung ([facility]) 11/08/2018 radiation last 2019 PVD (peripheral vascular dis ease) ([facility]) Hypothyroidism Anxiety Depression Muscle pain legs Redness BL legs Dental bridge present Sleep disorder 05/25/2023 Hyperlipemia 09/15/2023 Ischemic heart disease 09/15/2023 Disease of cardiovascular system 09/15/2023 Family History Medical History Relation Name Comments No Known Problems Brother No Known Problems Father No Known Problems Mother No Known Problems Sister Relation Name Status Comments Brother Alive Father Mother Sister Alive Social History Tobacco Use Types Packs/Day Years [...] on file Legal Sex Female 4:07 AM IT TEACHER Gender Identity Not on file Sexual Orientation Not on file Obstetrics History Last Filed Vital Signs Vital Sign Reading Time Taken Comments Blood Pressure 142/68 09/02/2024 1:10 PM IT TEACHER Pulse 75 09/02/2024 1:10 PM IT TEACHER Temperature 36.6 ??C (97.8 ??F) 08/20/2024 3:00 PM CS T Respiratory Rate 18 08/20/2024 3:00 PM IT TEACHER Oxygen Saturation 97% 09/02/2024 1:10 PM IT TEACHER Inhaled Oxygen Concentration - - Weight 65.3 kg (144 lb) 09/02/2024 1:10 PM IT TEACHER Height 144.8 cm (4' 9 ) 05/02/2024 2:18 PM CDT Body Mass Index 31.16 05/02/2024 2:18 PM CDT Plan of Treatment Health Maintenance Due Date Last Done Comments Depression Screening 1940 Osteoporosis Screening-Bone Density Scan 1941 Pneumococcal vaccine 65+ (1 of 2 - PCV) 1947 DTaP/Tdap/Td Vaccine (1 - Tdap) 1952 Hepatitis B Screening 1959 Zoster Vaccine (1 of 2) 1960 Well Visit 65+ 2006 Covid-19 Vaccine (3 - Pfizer risk series) 02/20/2021 01/23/2021, 01/02/2021 Fall Risk Assessment 06/03/2023 06/03/2022 Influenza Vaccine (#1) 2024 Medical Devices Implanted Type Area Branch Service Leader Device Identifier Shelf Expiration Date Model / Serial / Lot Cardiac Stent Coronary Artery [employer] Xcela Power Port 8fr [id number] - [id number] Implanted:Qty: 1 on 06/03/2022 at [facility] [employer] 02/06/2027 [id number] / / [id number] Procedures Procedure Name Priority Date/Time Associated Diagnosis Comments EGFR Routine 08/20/2024 2:02 PM IT TEACHER Malignant neoplasm of overlapping sites of left lung (HCC) DIFFERENTIAL AUTO Routine 08/20/2024 2:0 2 PM IT TEACHER Malignant neoplasm of overlapping sites of left lung (HCC) CBC WITH AUTO DIFFERENTIAL Routine 08/20/2024 2:02 PM IT TEACHER Malignant neoplasm of overlapping sites of left lung (HCC) COMPREHENSIVE METABOLIC PANEL Routine 08/20/2024 2:02 PM IT TEACHER Malignant neoplasm of overlapping sites of left lung (HCC) CT CHEST ABDOMEN PELVIS W CONTRAST Schedule Routine, Read Routine (OP Routine) 08/06/2024 2:25 PM IT TEACHER Malignant neoplasm of overlapping sites of left lung (HCC) POCT CREATININE FOR CONTRAST EVALUATION Routine 08/06/2024 2:20 PM IT TEACHER from Last 3 Months Results * (ABNORMAL) eGFR (08/20/2024 2:02 PM IT TEACHER) eGFR 37(L) >=60 mL/min/1. 73 m2 Comment: [...] was last reviewed 2021. Testing performed by: [facility], [address] [place] [address], [place]., [address] Blood 08/20/2024 2:02 PM IT TEACHER 08/20/2024 2:08 PM IT TEACHER Romel Valerio MD PhD LAB BLOOD ORDERABLES Final Result ABDIEL [address] [facility] Department [place] [address] * Differential, auto (08/20/2024 2:02 PM IT TEACHER) Neutrophil abs 3.0 1.5 - 6.5 K/cumm Comment:Testing performed by : [address] [address] Imm gran abs 0.0 0.0 - 0.1 K/cumm ABDIEL Comment:Testing performed by : [address] [address] Lymphocyte abs 1.3 0.8 - 3.3 K/cumm ABDIEL Comment:Testing performed by : [address] [address] Monocyte abs 0.6 0.2 - 0.8 K/cumm ABDIEL Comment:Testing performed by : [address] [address] Eosinophil abs 0.1 0.0 - 0.5 K/cumm ABDIEL Comment:Testing performed by : [address] [address] Basophil abs 0.0 0.0 - 0.1 K/cumm ABDIEL Comment:Testing performed by : [address] [address] Neutrophil pct 58.9 % ABDIEL Comment: Interpretive Data Percent cell count reference ranges are not reported, since discordance with absolute values may lead to misinterpretation of CBC data. Current Interpretive Data was last revised on 2017. Testing performed by: [address] [address] Imm gran pct 0.2 % ABDIEL Comment: Interpretive Data Percent cell count reference ranges are not reported, since discordance with absolute values may lead to misinterpretation of CBC data. Current Interpretive Data was last revised on 2017. Testing performed by: [address] [address] Lymphocyte pct 25.7 % ABDIEL Comment: Interpretive Data Percent cell count reference ranges are not reported, since discordance with absolute values may lead to misinterpretation of CBC data. Current Interpretive Data was last revised on 2017. Testing performed by: [address] [address] Monocyte pct 12.5 % ABDIEL Comment: Interpretive Data Percent cell count reference ranges are not reported, since discordance with absolute values may lead to misinterpretation of CBC data. Current Interpretive Data was last revised on 2017. Testing performed by: [address] [address] Eosinophil pct 2.3 % ABDIEL Comment: Interpretive Data Percent cell count reference ranges are not reported, since discordance with absolute values may lead to misinterpretation of CBC data. Current Interpretive Data was last revised on 2017. Testing performed by: [address] [address] Basophil pct 0.4 % ABDIEL Comment: Interpretive Data Percent cell count reference ranges are not reported, since discordance with absolute values may lead to misinterpretation of CBC data. Current Interpretive Data was last revised on 2017. Testing performed by: [address] [address] Blood 08/20/2024 2:02 PM IT TEACHER 08/20/2024 2:08 PM IT TEACHER us Romel Valerio MD PhD LAB BLOOD ORDERABLES Final Result [facility] [address] [facility] Department [place] [address] * (ABNORMAL) CBC with auto differential (08/20/2024 2:02 PM IT TEACHER) WBC 5.1 3.8 - 9.9 K/cumm Comment:Testing performed by : [address] [address] Hgb 10.9(L) 11.9 - 15.5 g/dL ABDIEL Comment:Testing performed by : [address] [address] Hct 34.0(L) 35.6 - 45.5 % ABDIEL Comment:Testing performed by : [address], [address] Plt 221 150 - 400 K/cumm ABDIEL Comment:Testing performed by : [address] [address] MPV 9.1 9.1 - 12.3 fL ABDIEL Comment:Testing performed by : [address], [address] RBC 4.04 3.90 - 5.20 M/cumm ABDIEL Comment:Testing performed by : [address], [address] MCV 84.2 81.3 - 96.4 fL ABDIEL Comment:Testing performed by : [address] [address] MCH 27.0(L) 27.1 - 33.3 pg ABDIEL Comment:Testing performed by : [address], [address] MCHC 32.1(L) 32.3 - 35.7 g/dL ABDIEL Comment:Testing performed by : [address], [address] RDW CV 15.9(H) 11.1 - 14.9 % ABDIEL Comment:Testing performed by : [address], [address] RDW SD 49.1(H) 35.7 - 48.1 fL ABDIEL Comment:Testing performed by : [address], [address] NRBC abs 0.00 0.00 - 0.01 K/cumm ABDIEL Comment:Testing performed by : [address], [address] Blood 08/20/2024 2:02 PM IT TEACHER 08/20/2024 2:08 PM IT TEACHER us Romel aVlerio MD PhD LAB BLOOD ORDERABLES Final Result ABDIEL [address] [facility] Department [place] [address] * (ABNORMAL) Comprehensive metabolic panel (08/20/2024 2:02 PM IT TEACHER) Sodium 137 135 - 145 mmol/L Comment:Testing performed by : [address], [place]., [address] Potassium, pl 4.0 3.3 - 4.9 mmol/L ABDIEL Comment:Testing performed by : [address], [place]., [address] Chloride 100 97 - 110 mmol/L ABDIEL Comment:Testing performed by : [address], [place]., [address] CO2 24 22 - 32 mmol/L ABDIEL Comment:Testing performed by : [address], [place]., [address] Anion gap 13 2 - 15 mmol/L ABDIEL Comment:Testing performed by : [address] [address] BUN 24 6 - 25 mg/dL ABDIEL Comment:Testing performed by : [address], [place]., [address] Creatinine 1.40(H) 0.60 - 1.10 mg/dL ABDIEL Comment:Testing performed by : [address] [address] Glucose 107 70 - 199 mg/dL ABDIEL Comment: Interpretive Data Fasting glucose >/= 126 [...] classification and Diagnosis of Diabetes Diabetes Care 2021; 46: S19-S40. Current interpretive data was last revised 2022. Testing performed by: [address], [place]., [address] Calcium 9.1 8.5 - 10.3 mg/dL ABDIEL Comment:Testing performed by : [address] [address] Bilirubin, total 0.2 0.1 - 1.2 mg/dL ABDIEL Comment:Testing performed by : [address] [address] Protein, pl 7.3 6.5 - 8.5 g/dL ABDIEL Comment:Testing performed by : [address], [place]., [address] Albumin 4.1 3.5 - 5.0 g/dL ABDIEL Comment:Testing performed by : [address], [place]., [address] Alk phos 57 40 - 130 Units/L ABDIEL Comment:Testing performed by : [address] [address] ALT 15 7 - 45 Units/L ABDIEL Comment:Testing performed by : [address] [address] AST 27 10 - 45 Units/L ABDIEL Comment:Testing performed by : [address] [address] Blood 08/20/2024 2:02 PM IT TEACHER 08/20/2024 2:08 PM IT TEACHER us Romel Valerio MD PhD LAB BLOOD ORDERABLES Final Result Performing Organization Address City/State/[facility] Co de Phone Number [facility] [address] [facility] Department [place] [address] * CT chest abdomen pelvis with contrast (08/06/2024 2:25 PM IT TEACHER) Anatomical Region Laterality Modality Body N/A Computed Tomogra phy 08/12/2024 8:06 AM IT TEACHER Narrative 08/12/2024 8:23 AM IT TEACHER EXAM DESCRIPTION: CT CHEST ABDOMEN PELVIS W [...] Electronically signed by ??Dennys Armstrong M.D. CH: DAMON D: ??08/12/2024 8:23 AM T: ??08/12/2024 8:23 AM Report ID: [id number] Reading Location: ??[id number] Procedure Note Dennys Armstrong Jr., MD - [...] Dennys Armstrong M.D. CH: DAMON Report ID: [id number] Reading Location: [place] [address] us Romel Valerio MD PhD IMG CT PROCEDURES Fin al Result * (ABNORMAL) POCT creatinine for contrast evaluation (08/06/2024 2:20 PM IT TEACHER) Creatinine POC 1.20(H) 0.60 - 1.10 mg/dL Comment:Testing performed by : [facility], [address] [place] [address], [place]., [address] Blood 08/06/2024 2:20 PM IT TEACHER 08/06/2024 2:20 PM IT TEACHER us Romel Valerio MD PhD POINT OF CARE TEST OR DERABLES Final Result ABDIEL [address] [facility] Department [place] [address] from Last 3 Months Insurance MEDICARE [facility] LIFE MEDICARE FOR LIFE MEDICARE FOR LIFE Advance Directives For more information, please contact: [phone] Documents on File Type Date Recorded Patient Tractor Operator Laser Leveling Expl anation ADVANCE DIRECTIVE 09/30/2018 12:00 AM JAY JAY R OF [place] MACHINE OPERATOR FINANCIAL/MEDICAL * Full Code (Latest Code Status on File) Date Activated Date Inactivated Comments 06/03/2022 8:52 AM 06/04/2022 5:14 AM Care Teams Trade Embalmer Relationship Specialty Start Date End Date Chandni Vang NP [address] [facility] [address] [place] [address] PCP - General Nurse Practitioner 08/22/23 Kaushik Gonzalez DO Referring Physician Internal Medicine 08/09/18 Navjot Danielson MD Cardiothoracic Surgery 08/21/18 Rinku Hoffmann MD Radiation Oncologist Radiation Oncology 07/28/21 Adryan Stevens MD Consulting Physician Cardiovascular Disease 09/02/21 Romel Valerio MD PhD [address] [place] [address] MEDICAL ONCOLOGY, [address] [phone] Consulting Physician Medical Oncology 04/04/22 Rachel Ramirez MD [address] [place] [address] MEDICAL ONCOLOGY, [address] [id number] Consulting Physician Pulmonary Disease 04/20/22 Ivis Okeefe MD [address] [place] [address] MEDICAL ONCOLOGY, [address] [address] Referring Physician Dermatology 08/30/22
--- OUTSIDE RECORDS SUMMARY | 2024-09-07 10:47 | XMS_ITS | Encounter Summary ---
Author Organization [facility] Facility Care Team Providers Care Fish Dressing Machine Feeder Name Role Phone Kaushik Gonzalez DO Primary Care Provider [phone] Kaushik Gonzalez DO Primary Care Provider [phone] Kaushik Gonzalez DO Unavailable Kaushik Gonzalez DO Unavailable Navjot Danielson MD Unavailable [phone] Checo Hawley MD Unavailable [phone] Rinku Hoffmann MD Unavailable [phone] Adryan Stevens MD Unavailable [phone] Romel Valerio MD PhD Unavailable [phone] Rachel Ramirez MD Unavailable [phone] Ivis Okeefe MD Unavailable [phone] Chandni Vang Primary Care Provider Unavailabl e Kaushik Gonzalez DO Primary Care Provider [phone] Chandni Vang NP Primary Care Provider [phone] Encounter Details Date Type Department Care Team (Latest Contact Info) Description 09/10/2018 Orders Only [facility] CLINCONV ProviderNahum MD [address] [place] [address] Social History Tobacco Use Types Packs/Day Years Used Date Smoking Tobacco: Every Day Smokeless Tobacco: Never Alcohol Use Standard Drinks/Week Comments Yes 0 (1 standard drink = 0.6 oz pur e alcohol) Comments Unknown Sex and Gender Information Value Date Recorded Sex Assigned at Not on file Legal Sex Female 4:07 AM WIRE WEAVER CLOTH Gender Identity Not on file Sexual Orientation Not on file documented as of this encounter Plan of Treatment Not on file documented as of this encounter Procedures Procedure Name Priority Date/Time Associated Diagnosis Comments PROCEDURE - RESULT 09/10/2018 12 :00 AM WIRE WEAVER CLOTH documented in this encounter Results * PROCEDURE - RESULT (09/10/2018 12:00 AM WIRE WEAVER CLOTH) Narrative 09/10/2018 12:00 AM WIRE WEAVER CLOTH Ordered by an unspecified provider. us Historical Provider Final Res ult documented in this encounter Visit Diagnoses Not on filedocumented in this encounter Additional Health Concerns Infection Onset Date Last Indicated Resolved Time COVID: Suspected 09/06/2021 09/06/2021 09/06/2021 10:47 PM WIRE WEAVER CLOTH documented as of this encounter Care Teams Fish Dressing Machine Feeder Relationship Specialty Start Date End Date Kaushik Gonzalez DO PCP - General Internal Medicine 08/09/18 09/20/18 Kaushik Gonzalez DO PCP - General 09/21/18 01/23/23 Chandni Vang PCP - General Family Medicine 01/24/23 02/27/23 Kaushik Gonzalez DO PCP - General Internal Medicine 02/28/23 08/21/23 Chandni Vang NP [address] [place] [address] PCP - General Nurse Practitioner 08/22/23 Kaushik Gonzalez DO Internal Medicine 09/21/18 02/27/23 Kaushik Gonzalez DO Referring Physician Internal Medicine 08/09/18 Navjot Danielson MD Cardiothoracic Surgery 08/21/18 Checo Hawley MD Medical Oncologist/Hematologis t Hematology and Oncology 08/31/18 04/03/22 Rinku Hoffmann MD Radiation Oncologist Radiation Oncology 07/28/21 Adryan Stevens MD Consulting Physician Cardiovascular Disease 09/02/21 Romel Valerio MD PhD [address] [place] [address] MEDICAL ONCOLOGY, [address] [phone] Consulting Physician Medical Oncology 04/04/22 Rachel Ramirez MD [address] [place] [address] MEDICAL ONCOLOGY, [address] [id number] Consulting Physician Pulmonary Disease 04/20/22 Ivis Okeefe MD [address] [place] [address] MEDICAL ONCOLOGY, [address] [phone] Referring Physician Dermatology 08/30/22 documented as of this encounter
--- OUTSIDE RECORDS SUMMARY | 2024-09-07 10:47 | XMS_ITS | Encounter Summary ---
Author Organization [facility] Care Team Providers Care Nondestructive Tester Name Role Phone Kaushik Gonzalez DO Primary Care Provider [phone] Kaushik Gonzalez DO Primary Care Provider [phone] Kaushik Gonzalez DO Unavailable Kaushik Gonzalez DO Unavailable Navjot Danielson MD Unavailable [phone] Checo Hawley MD Unavailable [phone] Rinku Hoffmann MD Unavailable [phone] Adryan Stevens MD Unavailable [phone] Romel Valerio MD PhD Unavailable [phone] Rachel Ramirez MD Unavailable [phone] Ivis Okeefe MD Unavailable [phone] Chandni Vang Primary Care Provider Unavailabl e Kaushik Gonzalez DO Primary Care Provider [phone] Chandni Vang NP Primary Care Provider [phone] Encounter Details Date Type Department Care Team (Latest Contact Info) Description 09/06/2018 Orders Only [facility] ProviderNahum MD [address] [place] [id number] Social History Tobacco Use Types Packs/Day Years Used Date Smoking Tobacco: Every Day Smokeless Tobacco: Never Alcohol Use Standard Drinks/Week Comments Yes 0 (1 standard drink = 0.6 oz pur e alcohol) Comments Unknown Sex and Gender Information Value Date Recorded Sex Assigned at Not on file Legal Sex Female 4:07 AM [employer] Gender Identity Not on file Sexual Orientation Not on file documented as of this encounter Plan of Treatment Not on file documented as of this encounter Procedures Procedure Name Priority Date/Time Associated Diagnosis Comments PROCEDURE - RESULT 09/10/2018 12 :00 AM [employer] documented in this encounter Results * PROCEDURE - RESULT (09/10/2018 12:00 AM MEAT [employer]) Narrative 09/10/2018 12:00 AM ME[employer] Ordered by an unspecified provider. us Historical Provider Final Res ult documented in this encounter Visit Diagnoses Not on filedocumented in this encounter Additional Health Concerns Infection Onset Date Last Indicated Resolved Time COVID: Suspected 09/06/2021 09/06/2021 09/06/2021 10:47 PM ME[employer] documented as of this encounter Care Teams Nondestructive Tester Relationship Specialty Start Date End Date Kaushik Gonzalez DO PCP - General Internal Medicine 08/09/18 09/20/18 Kaushik Gonzalez DO PCP - General 09/21/18 01/23/23 Chandni Vang PCP - General Family Medicine 01/24/23 02/27/23 Kaushik Gonzalez DO PCP - General Internal Medicine 02/28/23 08/21/23 Chandni Vang NP [address] [place] [address] PCP - General Nurse Practitioner 08/22/23 Kaushik Gonzalez DO Internal Medicine 09/21/18 02/27/23 Kaushik Gonzalez DO Referring Physician Internal Medicine 08/09/18 Navjot Danielson MD Cardiothoracic Surgery 08/21/18 Checo Hawley MD Medical Oncologist/Hematologis t Hematology and Oncology 08/31/18 04/03/22 Rinku Hoffmann MD Radiation Oncologist Radiation Oncology 07/28/21 Adryan Stevens MD Consulting Physician Cardiovascular Disease 09/02/21 Romel Valerio MD PhD [address] [place] [address] MEDICAL ONCOLOGY, [address] [id number] Consulting Physician Medical Oncology 04/04/22 Rachel Ramirez MD [address] [place] [address] MEDICAL ONCOLOGY, [address] [id number] Consulting Physician Pulmonary Disease 04/20/22 Ivis Okeefe MD [address] [place] [address] MEDICAL ONCOLOGY, [address] [id number] Referring Physician Dermatology 08/30/22 documented as of this encounter
[2024-09-07 11:11] LABS: Alanine Aminotransferase 22 U/L (6-35); Albumin Level 4.1 g/dL (3.5-5.1); Alkaline Phosphatase 64 U/L (38-126); Anion Gap 9 mmol/L (4-12); Aspartate Amino Transferase 41 U/L (14-36); Bilirubin,Total 0.5 mg/dL (0.2-1.3); Blood Urea Nitrogen 32 mg/dL (7-17); Calcium 8.8 mg/dL (8.4-10.2); Carbon Dioxide 28 mmol/L (22-30); Chloride 100 mmol/L (98-107); Cholesterol 194 mg/dL (0-200); Creatine Kinase 292 U/L (30-135); Estimated Glomerular Filt Rate 44; Glucose 115 mg/dL (65-110); HDL Direct 86 mg/dL; Potassium 3.8 mmol/L (3.4-5.0); Sodium 137 mmol/L (137-145); Triglycerides 59 mg/dL (<150)
[2024-09-07 11:22] LABS: LDL Cholesterol Direct 70 mg/dL
== END 2024-09-07 10:44 | disposition home or self-care (01) ==
LOC: ANHLAB 10:44
PROVIDERS: PCP Nurse Practitioner Family; Visit Provider Specialist
DX: E78.5 Hyperlipidemia, unspecified (principal); I10 Essential (primary) hypertension
CPT/HCPCS: 36415; 80053; 80061; 82550

== ENCOUNTER 2024-09-19 00:16 | Emergency (ER) | payer MEDICARE, OTHER, SELFPAY ==
[2024-09-19] VITALS (12 sets, daily range): BP systolic 129–162; BP diastolic 67–99; PULSE 87–100; RESP 15–17; TEMP 36.8; O2SAT 97–100
--- NOTE | ~2024-09-19 | CT_ITS ---
CT head without contrast Indication: Status post fall Technique: Serial scans were obtained through the brain without the administration of contrast. Dose reduction technique was used on this scan by utilizing automated exposure control and iterative recon struction technique. The dose-length product (DLP) was 681.00 mGy-cm. Findings: There is no evidence of intracranial hemorrhage, mass lesion, or acute infarct. The ventri cles and subarachnoid spaces are unremarkable. Low attenuation regions are seen within the periventr icular white matter bilaterally, likely representing changes from chronic microvascular ischemic dise ase. There is no evidence of edema, mass effect or midline shift. The visualized paranasal sinuses and mastoid air cells are clear. Impression: No intracranial hemorrhage, mass, or acute infarct. Chronic white matter changes, as above. Reviewed, dictated and finalized at location [facility] Impression: No intracranial hemorrhage, mass, or acute infarct. Chronic white matter changes, as above.
--- NOTE | ~2024-09-19 | XR_ITS ---
Portable chest x-ray Comparison: 07/05/2021 Clinical History: Chest heaviness Findings: There is opacification of the left lung apex, which could reflect loculated effusion. Righ t-sided Mediport in place. Right lung clear. Cardiomediastinal silhouette is probably stable, status post CABG. Bones and soft tissues are unremarkable. Impression: Opacification left lung apex, likely loculated effusion. Right lung clear. Status post CABG with cardiomegaly. Right-sided Mediport. Reviewed, dictated and finalized at location . [employer] Impression: Opacification left lung apex, likely loculated effusion. Right lung clear. Status post CABG with cardiomegaly. Right-sided Mediport.
--- NOTE | ~2024-09-19 | CT_ITS ---
Noncontrast CT scan of the cervical spine Technique: Multiple contiguous axial [address] images of the cervical spine were obtained and rec onstructed in 2D sagittal and coronal planes on the acquisition scanner. Dose reduction technique was used on this scan by utilizing automated exposure control, adjustment of the mA and/or kV according to patient size. The dose-length product (DLP) was 416.35 mGy-cm. Clinical History: Pain Findings: No fractures or dislocations. There is extensive left-sided facet arthropathy in the cervi lucia spine. The intervertebral disc spaces are preserved. There is left neural foraminal narrowing at C2-C3, C3-C4, C4-C5, and C5-C6. No prevertebral soft tissue swelling. There is a loculated effusion of the left lung apex. Impression: No fracture or subluxation of the cervical spine. Extensive left-sided facet arthropathy the cervical spine with multilevel left neural foraminal narro wing. Loculated effusion at the left lung apex. Reviewed, dictated and finalized at [facility]. [employer] Impression: No fracture or subluxation of the cervical spine. Extensive left-sided facet arthropathy the cervical spine with multilevel left neural foraminal narrowing. Loculated effusion at the left lung apex.
--- OUTSIDE RECORDS SUMMARY | 2024-09-19 00:19 | XMS_ITS ---
Author Organization [facility] [address] Address [address] [place] [address] Care Team Providers Care Breaker Boss Name Role Phone Carlos Kaushik DE GUZMAN Unavailable Navjot Danielson MD Unavailable [phone] Rinku Hoffmann MD Unavailable [phone] Adryan Stevens MD Unavailable [phone] Romel Valerio MD PhD Unavailable Rachel Ramirez MD Unavailable Ivis Okeefe MD Unavailable [phone] Chandni Vang NP Primary Care Provider [phone] Active Problems Problem Noted Date Diagnosed Date Nocturnal hypoxemia 10/30/2023 Hyperlipemia 09/15/2023 Disease of cardiovascular system 09/15/2023 Sleep disorder 05/25/2023 Persons encountering health services in other specified circumstances 04/19/2022 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 Treatments may have been administered in another [...]
--- OUTSIDE RECORDS SUMMARY | 2024-09-19 00:19 | XMS_ITS | Data Portability ---
Author Organization [place] - [facility] OFFICE Address [address] [place] [address] Care Team Providers Care Seasonal Tax Preparer Name Role Phone JOSIANE STEWARD Primary Care Provider Assessment No assessment recorded. Plan of Treatment Reminders Order Date Submit Date Provider Last Modified By Organization Details Last Modified Time Details Appointments ESTABLISH ED PATIENT DETAILED 2024 01:15P M Adryan Ramachandran i, MD Not available Not available Not available Lab None recorded. Referral None recorded. Procedures None recorded. Surgeries None recorded. Imaging None recorded. Medication Orders meclizine 25 mg tablet 2022 023 [email or web address] [id number], [address], [phone], 09/17/2024 15:44:10 nitroglyc kashif 0.4 mg sublingua l tablet 2024 025 [id number], [address], [phone], 09/17/2024 16:19:04 Bystolic 5 mg tablet 2024 025 [id number], [address] [facility] [address] [place] [address], [id number], 09/17/2024 16:19:05 Patient TargetsNo targets recorded. Patient Instructions Encounter Date Encounter Id Patient Instructions Last Modified By Organization Details Last Modified Time 08/18/2022 [id number] Exercise advised Low cholesterol diet advised Low sodium diet advised. [email or web address] Not available 08/18/2022 12:23:28 03/12/2024 [id number] Exercise advised Low cholesterol diet advised Low sodium diet advised. [email or web address] Not available 03/12/2024 17:29:55 Reason for Referral None Reported. Results Created Date Observation Date Name Description Value Unit Range Abnormal Flag Note LastModifiedBy Organization Detail LastModifiedTime 08/19/1908/18/2022 [facility] rocar diogr am No observ ation record ed. [email or web address] Not Available 2022 10:52:37 08/16/19 24 08/15/2023 [facility] rocar diogr am No observ ation record [...] Not Available 2023 14:00:20 03/14/20 24 03/12/2024 [facility] rocar diogr am No observ ation record ed. Not Available 2023 20:25:57 05/28/20 24 05/09/2024 CT, angio gram, chest + abdom en + pelvi s, w/wo contr ast No observ ation record ed. [email or web address] Not Available 2024 18:54:59 Result Notes Documentation Provider Name and Address Organization Details Recorded Time Ck (creatine Kinase) Isoenzymes, Serum : CK 10/15/22: [address], [place] - [facility] 02/03/2023 07:16:04 Problems Name Problem SNOMED Code Status Onset Date Resolution Date Notes Provider Name and Address Organization Details Recorded Time Dyspnea on exertion 51927649 Active 2018 Not Available [facility] 3 18:03:57 Pre-surgery testing Active 2018 Not Available [facility] 3 18:03:57 Coronary arteriosclero sis 08113954 Active 2018 Not Available [facility] 3 18:03:56 Essential hypertension 00795669 Active 2018 Not Available [facility] 3 18:03:57 Carcinoma of female breast 955036670 Active 2018 Not Available [facility] 3 18:03:57 Family history of coronary arteriosclero sis 203010314 Active 2018 Not Available [facility] 3 18:03:56 Malignant tumor of lung 695116462 Active 2018 Not Available [facility] 3 18:03:57 Angina pectoris 748407640 Active 2019 Not Available [facility] 3 18:03:57 Stented coronary artery 738284782 Active 2019 Not Available [facility] 3 18:03:57 Intermittent claudication 64073432 Active 2019 Not Available [facility] 3 18:03:57 Dyslipidemia 425397913 Active 2019 Not Available [facility] 3 18:03:57 Notes:Has Lung mass, LL lobe . Needs surgical pre-auth for Dr. Argueta. Problem Notes None recorded. Procedures Surgical History None recorded. Imaging Results Imaging Date Name Status LastModified by Organization Details LastModified Time 08/18/2022 electrocardiogram completed [email or web address] Informa tion not available 08/19/2022 10:52:37 08/15/2023 [...] pelvis, w/wo contrast completed Information not available 09/14/2024 18:54:59 Procedure Notes None recorded. Medical Equipment None Reported. Allergies Allergen ID Allergen Name Allergen Category Reaction Reaction Severity Criticality Documentation Date Start Date Code Code System Note Provider Name and Address Organization Details Recorded Time 7932 clopidogr el medicatio n Not available Not available Not available 10/26/2018 [address] RxNorm Pace [place] null, [place] - [facility] 9 09:45:21 Medications [...] 1 TABLET BY MOUTH EVERY 8 HOURS 09/17 completed Not Available Not Available Not Available hydrocodo ne 5 mg-acetam inophen 325 mg tablet Take 1 tablet every 6 hours by oral route. 10/29 completed Not Available Not Available Not Available bacitraci n 500 unit/gram eye ointment APPLY SMALL AMOUNT TO SURROUND ING AREA OF RIGHT EYE THREE TIMES DAILY 09/17 completed Not Available Not Available Not Available ondansetr on HCl 8 mg tablet 09/17 completed Not Available Not Available Not Available famotidin e 40 mg tablet Take 1 mg every day by oral route. active Not Available Not Available No t Available potassium chloride ER 10 mEq tablet,ex tended release 1 tablet once a day 08/15 completed Not Available Not Available Not Available ciproflox acin 250 mg tablet TAKE 1 TABLET BY MOUTH TWICE DAILY 09/17 completed Not Available Not Available Not Available amlodipin e 5 mg tablet 1 tablet once a day active Not Available Not Available No t Available prochlorp erazine maleate 10 mg tablet 09/17 completed Not Available Not Available Not Available ciproflox acin 500 mg tablet TAKE 1 TABLET BY MOUTH EVERY 12 HOURS 09/17 completed Not Available Not Available Not Available doxycycli ne monohydra te 100 mg tablet 08/18 completed Not Available Not Available Not Available tramadol 50 mg tablet TAKE 1 TO 2 TABLETS BY MOUTH EVERY 6 HOURS NEEDED FOR PAIN 09/17 completed Not Available Not Available Not Available triamcino lone acetonide 0.1 % topical cream 09/17 completed Not Available Not Available Not Available vancomyci n 125 mg capsule TAKE 1 CAPSULE BY MOUTH DAILY. CONTINUE DUNTIL 7 DAYS AFTER FINISHIN G ANTIBIOT ICS 09/17 completed Not Available Not Available Not Available lidocaine -prilocai ne 2.5 %-2.5 % [...] 1 TABLET BY MOUTH THREE TIMES DAILY 09/17 completed Not Available Not Available Not Available amlodipin e 10 mg tablet Take 1 tablet every day by oral route. 08/18 completed 0.5 tablet bid 12/28/20 Not Available Not Available Not Available doxycycli ne monohydra te 100 mg capsule 09/17 completed Not Available Not Available Not Available cephalexi n 500 mg capsule TAKE 1 CAPSULE BY MOUTH EVERY 12 HOURS FOR 7 DAYS 09/17 completed Not Available Not Available Not Available simvastat in 20 mg tablet Take 1 tablet every day by oral route. 08/21 completed Not Available Not Available Not Available tacrolimu s 0.1 % topical ointment RUB IN WELL TWICE DAILY TO THE AFFECTED AREA 09/17 completed Not Available Not Available Not Available dexametha sone 4 mg tablet 09/17 completed Not Available Not Available Not Available metoprolo l tartrate 50 mg tablet BID 10/29 completed Not Available Not Available Not Available hydrochlo rothiazid e 12.5 mg capsule TAKE 1 CAPSULE BY MOUTH EVERY DAY 12/28 completed not every day 12/28/20 Not Available Not Available Not Available nitroglyc kashif 0.4 mg sublingua l tablet Place 1 tablet by sublingu al route. 2024 active Not Available Not Available Not Avai lable candesart an 32 mg tablet TAKE 1 [...] Not Available colchicin e 0.6 mg tablet 09/17 completed Not Available Not Available Not Available hydrocort isone 2.5 % topical ointment RUB IN WELL TWICE DAILY TO THE AFFECTED AREA OF EYELIDS UNTIL CLEAR 09/17 completed Not Available Not Available Not Available hydroxyzi ne HCl 10 mg tablet TAKE 1 TABLET BY MOUTH 3 TIMES A DAY NEEDED FOR ITCHING active Not Available Not Available No t Available clobetaso l 0.05 % scalp solution APPLY DAILY TO INVOLVED AREA OF THE SCALP UNTIL CLEAR 09/17 completed Not Available Not Available Not Available loratadin e 10 mg tablet TAKE 1 TABLET BY MOUTH EVERY MORNING 09/17 completed Not Available Not Available Not Available mometason e 0.1 % topical cream [...] MOUTH EVERY 12 HOURS FOR 7 DAYS 09/17 completed Not Available Not Available Not Available levothyro xine 75 mg po daily 09/22 completed Not Available Not Available Not [...] completed Not Available Not Available Not Available Bystolic 5 mg tablet Take 1 tablet every day by oral route. 2024 active Not Available Not Available Not Avai lable diclofena c 1 % topical gel as needed active Not Available Not Available No t Available calcium 315 mg-vitami n D3 250 unit-phyt osterols 200 mg tablet Take by oral route. active Not Available Not Available No t Available Citracal Plus Bone Density 1 tab, OD 08/14 completed Not Available Not Available Not Available Suprep Bowel Prep Kit 17.5 gram-3.13 gram-1.6 gram oral solution USE DIRECTED BY PHYSICIA N 09/17 completed Not Available Not Available Not Available Jardiance 10 mg tablet 08/18 completed Not Available Not Available Not Available colchicin e 0.6 mg capsule TAKE 1 CAPSULE BY MOUTH TWICE DAILY 03/10 completed Not Available Not Available Not Available Stiolto Respimat 2.5 mcg-2.5 mcg/actua tion solution for inhalatio n INHALE 2 PUFFS BY MOUTH DAILY 09/17 completed Not Available Not Available Not Available Tagrisso 80 mg tablet Take 1 mg every day by oral route. 09/17 completed Not Available Not Available Not Available OneTouch Verio Flex Meter USE DIRECTED [...] Updated DateTime 3 147.32 cm 30.5 kg/m2 61291.4 9 g 70 /min 95 % 95 % 120 mm[Hg] 90 mm[Hg] Gilmar Mccormack [facility] 3 12:09:01 Date Recorded Body height Body mass index (BMI) Body weight Heart rate Respiratory rate Oxygen saturation Oxygen saturation in Arterial blood by Pulse oximetry Systolic blood pressure Diastolic blood pressure Provider Name and Address Organization Details Last Updated DateTime 3 147.32 cm 29.3 kg/m2 68081.9 3 g 70 /min 16 /min 97 % 97 % 118 mm[Hg] 70 mm[Hg] Jhon Manzano [facility] 3 16:12:33 Date Recorded Body height Body mass index (BMI) Body weight Heart rate Oxygen saturation Oxygen saturation in Arterial blood by Pulse oximetry Systolic blood pressure Diastolic blood pressure Provider Name and Address Organization Details Last Updated DateTime 4 147.32 cm 29.7 kg/m2 71023.1 2 g 74 /min 97 % 97 % 133 mm[Hg] 70 mm[Hg] Sherry Nam [facility] 4 15:48:34 Date Recorded Body height Body mass index (BMI) Body weight Heart rate Oxygen saturation Oxygen saturation in Arterial blood by Pulse oximetry Systolic blood pressure Diastolic blood pressure Provider Name and Address Organization Details Last Updated DateTime 4 147.32 cm 30.2 kg/m2 29086.3 8 g 80 /min 98 % 98 % 135 mm[Hg] 65 mm[Hg] Sherry Nam [facility] 4 16:55:17 Date Recorded Body height Body mass index (BMI) Body weight Heart rate Oxygen saturation Oxygen saturation in Arterial blood by Pulse oximetry Systolic blood pressure Diastolic blood pressure Provider Name and Address Organization Details Last Updated DateTime 5 147.32 cm 30.1 kg/m2 23466.3 g 75 /min 98 % 98 % 202 mm[Hg] 84 mm[Hg] Leticia Nogueraran [facility] 5 16:00:27 Social History Question Answer Notes LastModified by Organizat ion Details LastModified Time Tobacco Smoking Status Former Smoker quit 2 months ago Not Available [facility] 06/09/2020 03:30:40 Do You Or Have You Ever Used E-cigarettes Or Vape? Never Used Electronic Cigarettes Information not available 10/12/2020 What Is Your Occupation? Retired [id number] Information not available 06/09/2020 Live Alone Or With Others? Alone Information not available 10/26/2018 What Was The Date Of Your Most Recent Tobacco Screening? 12/05/2018 [id number] Information not available 06/09/2020 Do You Or Have You Ever Used Smokeless Tobacco? Former Smokeless Tobacco User Information not available 10/12/2020 How Many Years Have You Smoked Tobacco? 40 [id number] Information not available 06/09/2020 Sex: Unknown Functional [...] Condition Response Hyperlipidemia Y Heart Disease Y Thyroid Disease Cancer Hypertension Y High Cholesterol Y Gynecological HistoryNo gynecological history recorded. Obstetrics History GPAL:G 0 P 0 0 0 0 Past Encounters Encounter ID Performer Location Encounter Start Date Encounter Closed Date Diagnosis/Indication Diagnosis SNOMED-CT Code Diagnosis ICD10 Code Diagnosis Note [id number] MD Laura Hess Office [address] [place] [facility] [place] [address] 09/05/2018 15:45:22 09/05/2018 17:06:42 Pre-surgery testing 837119707 Z01.89 Will obtain Treadmill Myoview Stress Test to look for any ischemia. Has a high Newport Risk score. Has Known CAD and/or CAD risk equivalent . Will get echo to look for any structural heart disease Continue maximal medical treatment and risk factor modificati on. However, She cannot tolerate ASA due to stomach upset and is refusing to try and is allergic to Plavix Cannot tolerate any statin due to leg cramping. Has tried Crestor, Lipitor, and Livalo, and simvastati n. Consider Repatha. F/u FLP Dyspnea on exertion 6084 5006 R06.09 probably due to her left upper lung mass however could also be angina equivalent . Will obtain Treadmill Myoview Stress Test to look for any ischemia. Has a high [place] Risk score. Has Known CAD and/or CAD risk equivalent . Will get echo to look for any structural heart disease Coronary arteriosclerosis 64753203 I25.10 Has a prior hx of CAD required stent placement x2 over 20 years ago at [facility]. Will review records that was provided. Will obtain Treadmill Myoview Stress Test to look for any ischemia. Has a high Newport Risk score. Has Known CAD and/or CAD risk equivalent . Cannot tolerate ANY statin therapy, ASA, or Plavix. Essential hypertension 33600843 I10 Well controlled on current regimen. Continue. Carcinoma of female breast 612309476 C50.[address] Hawley. Needs surgery. Family his tory of coronary arteriosclerosis 185921982 Z82.49 Her son passed from a [place] at the age of 53. Her father passed from a [place] at the age of 70. Will obtain Treadmill Myoview Stress Test to look for any ischemia. Has a high Newport Risk score. Has Known CAD and/or CAD risk equivalent . Needs maximal medical therapy and risk factor [place]ificati [place]. [id number] MD Laura Hess Office [address] [place] [address] 09/20/2018 11:21:11 09/20/2018 12:21:11 Pre-surgery testing 663848514 Z01.89 stress test is abnormal The patient [...] Has tried Crestor, Lipitor, and Livalo, and simvastati n. Consider Repatha. F/u FLP Dyspnea on exertion 6084 5006 R06.09 probably due to her left upper lung mass however could also be angina equivalent . Will obtain Treadmill Myoview Stress Test to look for any ischemia. Has a high Newport Risk score. Has Known CAD and/or CAD risk equivalent . Will get echo to look for any structural heart disease Coronary arteriosclerosis 46355153 I25.10 Has a prior hx of CAD required stent placement x2 over 20 years ago at [facility]. Will review records that was provided. Will obtain Treadmill Myoview Stress Test to look for any ischemia. Has a high [place] Risk score. Has Known CAD and/or CAD risk equivalent . Cannot tolerate ANY statin therapy, ASA, or Plavix. Essential hypertension 38438380 I10 Well controlled on current regimen. Continue. Carcinoma of female breast 185531344 C50.[address] Hawley. Needs surgery. Family his tory of coronary arteriosclerosis 471601508 Z82.49 Her son passed from a [place] at the age of 53. Her father passed from a [place] at the age of 70. Will obtain Treadmill Myoview Stress Test to look for any ischemia. Has a high [place] Risk score. Has Known CAD and/or CAD risk equivalent . Needs maximal medical therapy and risk factor modificati on. Angina pectoris 88711458 0 I20.9 Stented co ronary artery 479845137 Z95.5 [id number] Israel Bower Office [address] [place] [address] 10/29/2018 10:42:18 10/29/2018 11:25:11 Pre-surgery testing 895401108 Z01.89 pt had cABGshe is going for lung resectionl ow risk for moderate risk surgerycon t Metoprolol and statiin Dyspnea on exertion 6084 5006 R06.09 probably due to her left upper lung mass Coronary arteriosclerosis 12244393 I25.10 Has a prior hx of CAD required stent placement x2 over 20 years ago at [facility]. Will review records that was provided. Cannot tolerate ANY statin therapy, ASA, or Plavix.bud billy cut down Metoprolol due to diziness Essential hypertension 70217218 I10 Well controlled on current regimen. Continue. Carcinoma of female breast 922576273 C50.[address] Hawley. Needs surgery. Family his tory of coronary arteriosclerosis 238574851 Z82.49 Her son passed from a [place] at the age of 53. Her father passed from a [place] at the age of 70. Needs maximal medical therapy and risk factor modificati on. Angina pectoris 88524410 0 I20.9 Stented co ronary artery 515845229 Z95.5 [id number] MD Laura Hess Office [address] [place] [address] 12/05/2018 14:08:41 12/05/2018 15:06:02 Pre-surgery testing 923593015 Z01.89 pt had cABGshe is going for lung resectionl ow risk for moderate risk surgerycon t Metoprolol Dyspnea on exertion 6084 5006 R06.09 probably due to her left upper lung mass Coronary arteriosclerosis 06778658 I25.10 Has a prior hx of CAD required stent placement x2 over 20 years ago at [facility]. Will review records that was provided. Cannot tolerate ANY statin therapy, ASA, or Plavix.bud billy cut down Metoprolol due to diziness Essential hypertension 61321941 I10 Well controlled on current regimen. Continue. Carcinoma of female breast 808908780 C50.[address] Hawley. Needs surgery. Family his tory of coronary arteriosclerosis 117107396 Z82.49 Her son passed from a [place] at the age of 53. Her father passed from a MN at the age of 70. Needs maximal medical therapy and risk factor modificati on. Angina pectoris 31036857 0 I20.9 Stented co ronary artery 624308152 Z95.5 Intermitte nt claudication 29510660 I73.9 [id number] [facility] Laura [place] Office [address] [place] [address] 03/13/2019 14:20:10 03/13/2019 15:53:00 Pre-surgery testing 688158370 Z01.89 pt had cABGshe is going for lung resectionl ow risk for moderate risk surgerycon t Metoprolol Dyspnea on exertion 6084 5006 R06.09 probably due to her left upper lung mass Coronary arteriosclerosis 02935467 I25.10 Has a prior hx of CAD required stent placement x2 over 20 years ago at [facility]. Will review records that was provided. Cannot tolerate ANY statin therapy, ASA, or Plavix.bud billy cut down Metoprolol due to wheexing Essential hypertension 10642807 I10 Well controlled on current regimen. Continue. Carcinoma of female breast 460975250 C50.[address] Hawley. Needs surgery. Family his tory of coronary arteriosclerosis 092233545 Z82.49 Her son passed from a [place] at the age of 53. Her father passed from a [place] at the age of 70. Needs maximal medical therapy and risk factor modificati on. Angina pectoris 41102142 0 I20.9 Stented co ronary artery 867255502 Z95.5 Intermitte nt claudication 18614438 I73.9 [id number] Iggy Pickard [place] Office [address] [place] [address] 04/25/2019 09:28:18 04/25/2019 10:32:54 Dyspnea on exertion 72556223 R06.09 probably due to her left upper lung mass 04/25/19The patient states that her PCP stoped the toprol XL due to SOB. The patient states that her breathing has improved since then. Coronary arteriosclerosis 57309268 I25.10 CABG X 2 done in 09/25/18:L DAYRON to mid LAD,reserv ed saphenous vein graft from aorta to D2. Has a prior hx of CAD required stent placement x2 over 20 years ago at [facility]. Will review records that was provided. Feels she can tolerate Simvastati n better than Atorvastat in. ASA, or Plavix.bud billy cut down Metoprolol due to wheexing. PCP stoped metoprolol Essential hypertension 59230102 I10 Well controlled on current regimen. Continue. 04/25/19 BP 148/90 patient states she has not taking medication today, however will after she can eat. Carcinoma of female breast 411983137 C50.[address] Hawley. Needs surgery. Family his tory of coronary arteriosclerosis 725595642 Z82.49 Her son passed from a [place] at the age of 53. Her father passed from a MN at the age of 70. Needs maximal medical therapy and risk factor modificati on. Angina pectoris 79372276 0 I20.9 Stented co ronary artery 646584279 Z95.5 CABG X 2 done in 09/25/18:L DAYRON to mid LAD,reserv ed saphenous vein graft from aorta to D2. Intermitte nt claudication 68299169 I73.9 Dyslipidemia 919982878 E 78.5 on rosuvastat in 10 mg but want to change to simvastati n 10/07/18 LDL:63 [id number] MD Laura Hess Office [address] [place] [address] 08/21/2019 13:51:23 08/21/2019 14:51:47 Dyspnea on exertion 82701420 R06.09 probably due to her left upper lung mass 04/25/19The patient states that her PCP stoped the toprol XL due to SOB. The patient states that her breathing has improved since then. Coronary arteriosclerosis 36607641 I25.10 CABG X 2 done in 09/25/18:L DAYRON to mid LAD,reserv ed saphenous vein graft from aorta to D2. Has a prior hx of CAD required stent placement x2 over 20 years ago at [facility]. Will review records that was provided. Feels she can tolerate Simvastati n better than Atorvastat in. ASA, or Plavix.bud billy cut down Metoprolol due to wheezing. PCP stoped metoprolol Essential hypertension 48598460 I10 bp 140/80 Carcinoma of female breast 504826722 C50.[address] Hawley. Needs surgery. Family his tory of coronary arteriosclerosis 974417906 Z82.49 Her son passed from a [place] at the age of 53. Her father passed from a MN at the age of 70. Needs maximal medical therapy and risk factor modificati on. Angina pectoris 04145195 0 I20.9 Stented co ronary artery 957942049 Z95.5 CABG X 2 done in 09/25/18:L DAYRON to mid LAD,reserv ed saphenous vein graft from aorta to D2. Intermitte nt claudication 23672424 I73.9 Dyslipidemia 751860650 E 78.5 Patient now taking ezetimibe. She could not tolerate simvastati n and rosuvastat in 10/07/18 LDL:63 Peripheral vascular disease 153529336 I73.9 with known Iliac stenosis, will plan Right [facility] [id number] [facility] [address] [place] [address] 02/27/2020 14:37:40 02/27/2020 15:23:16 Dyspnea on exertion 03828846 R06.09 check echo patient followed by Pulmonary as well 04/25/19The patient states that her PCP stoped the toprol XL due to SOB. The patient states that her breathing has improved since then. Coronary arteriosclerosis 66954128 I25.10 CABG X 2 done in 09/25/18:L DAYRON to mid LAD,reserv ed saphenous vein graft from aorta to D2. occasional chest pains (since CABG , atypical for angina associated with numbness in both arms). Check echo and Holter. consider stress testing next visit Has a prior hx of CAD required stent placement x2 over 20 years ago at [facility]. Will review records that was provided. Feels she can tolerate Simvastati n better than Atorvastat in. ASA, or Plavix.bud billy cut down Metoprolol due to wheezing. PCP stoped metoprolol Essential hypertension 89940757 I10 Well controlled Carcinoma of female breast 432852807 C50.[address] Hawley. Family his tory of coronary arteriosclerosis 505707200 Z82.49 Her son passed from a [place] at the age of 53. Her father passed from a [place] at the age of 70. Needs maximal medical therapy and risk factor modificati on. Angina pectoris 53245515 0 I20.9 Stented co ronary artery 045868192 Z95.5 CABG X 2 done in 09/25/18:L DAYRON to mid LAD,reserv ed saphenous vein graft from aorta to D2. Dyslipidemia 913772033 E 78.5 Patient now taking ezetimibe. She could not tolerate simvastati n and rosuvastat in 10/07/18 LDL:63 Peripheral vascular disease 010684217 I73.9 with known Iliac stenosis, will plan Right iliac artery stent Dizziness [id number] R42 Check echo before next visit.[facility] k 48 HolterWIll d/c torsemide as she appears euvolemic. May take on as needed basis [address] [facility] [address] [place] [address] 04/03/2020 10:38:33 04/03/2020 11:51:16 Dizziness [id number] R42 48 Holter monitor showed no events. WIll d/c torsemide as she appears euvolemic. May take on as needed basis Coronary arteriosclerosis 69856897 I25.10 CABG X 2 done in 09/25/18:L DAYRON to mid LAD,reserv ed saphenous vein graft from aorta to D2. occasional chest pains (since CABG , atypical for angina associated with numbness in both arms). Check echo and Holter. consider stress testing next visit Has a prior hx of CAD required stent placement x2 over 20 years ago at [facility]. Will review records that was provided. Feels [...] breathing has improved since then. Essential hypertension 92870634 I10 Well controlled Carcinoma of female breast 016901817 C50.[address] Hawley. Family his tory of coronary arteriosclerosis 671684667 Z82.49 Her son passed from a MN at the age of 53. Her father passed from a MN at the age of 70. Needs maximal medical therapy and risk factor modificati on. Angina pectoris 93676261 0 I20.9 Stented co ronary artery 806996341 Z95.5 CABG X 2 done in 09/25/18:L DAYRON to mid LAD,reserv ed saphenous vein graft from aorta to D2. Dyslipidemia 940410187 E 78.5 Patient now taking ezetimibe. She could not tolerate simvastati n and rosuvastat in 10/07/18 LDL:63 Peripheral vascular disease 790573957 I73.9 with known Iliac stenosis, now with worsening claudicati on. will plan peripheral [place] [address] Iggy Bower Office [address] [place] [address] 04/23/2020 14:58:08 04/23/2020 15:45:59 Dizziness 727663739 R42 48 Holter monitor showed no events. WIll d/c torsemide as she appears euvolemic. May take on as needed basis Peripheral vascular disease 084766356 I73.9 s/p peripheral angiogram with 70% lesion. No interventi on. On maximal medical therapy. exercise encouraged . Coronary arteriosclerosis 19485962 I25.10 CABG X 2 done in 09/25/18:L DAYRON to mid LAD,reserv ed saphenous vein graft from aorta to D2. occasional chest pains (since CABG , atypical for angina associated with numbness in both arms). Check echo and Holter. consider stress testing next visit Has a prior hx of CAD required stent placement x2 over 20 years ago at [facility]. Will review records that was provided. Feels [...] breathing has improved since then. Essential hypertension 84541252 I10 Well controlled Carcinoma of female breast 547406914 C50.[address] Hawley. Family his tory of coronary arteriosclerosis 297232188 Z82.49 Her son passed from a MN at the age of 53. Her father passed from a MN at the age of 70. Needs maximal medical therapy and risk factor modificati on. Angina pectoris 29108496 0 I20.9 Stented co ronary artery 205413480 Z95.5 CABG X 2 done in 09/25/18:L DAYRON to mid LAD,reserv ed saphenous vein graft from aorta to D2. Dyslipidemia 479409062 E 78.5 Patient now taking ezetimibe. She could not tolerate simvastati n and rosuvastat in 10/07/18 LDL:63 [id number] MD Laura Hess Office [address] [place] [address] 10/14/2020 16:22:26 10/14/2020 17:20:49 Dizziness [id number] R42 48 Holter monitor showed no events. WIll d/c torsemide as she appears euvolemic. May take on as needed basis Peripheral vascular disease 079119756 I73.9 s/p peripheral angiogram with 70% lesion. No interventi on. On maximal medical therapy. exercise encouraged . Coronary arteriosclerosis 91816357 I25.10 CABG X 2 done in 09/25/18:L DAYRON to mid LAD,reserv ed saphenous vein graft from aorta to D2. occasional chest pains (since CABG , atypical for angina associated with numbness in both arms). Check echo and Holter. consider stress testing next visit Has a prior hx of CAD required stent placement x2 over 20 years ago at [facility]. Will review records that was provided. Feels [...] breathing has improved since then. Essential hypertension 17491297 I10 Increase amlodipine today Carcinoma of female breast 367529902 C50.[address] Hawley. Family his tory of coronary arteriosclerosis 647929187 Z82.49 Her son passed from a MN at the age of 53. Her father passed from a MN at the age of 70. Needs maximal medical therapy and risk factor modificati on. Angina pectoris 69409136 0 I20.9 Stented co ronary artery 481972252 Z95.5 CABG X 2 done in 09/25/18:L DAYRON to mid LAD,reserv ed saphenous vein graft from aorta to D2. Dyslipidemia 944084816 E 78.5 Patient now taking ezetimibe. She could not tolerate simvastati n and rosuvastat in 10/07/18 LDL:63 675[address] [facility] Office [address] [place] [address] 10/28/2020 14:10:58 10/28/2020 14:44:27 Dizziness [id number] R42 48 Holter monitor showed no events. WIll d/c torsemide as she appears euvolemic. May take on as needed basis Peripheral vascular disease 962306320 I73.9 s/p peripheral angiogram with 70% lesion. No interventi on. On maximal medical therapy. exercise encouraged . Coronary arteriosclerosis 76341330 I25.10 CABG X 2 done in 09/25/18:L DAYRON to mid LAD,reserv ed saphenous vein graft from aorta to D2. occasional chest pains (since CABG , atypical for angina associated with numbness in both arms). Check echo and Holter. consider stress testing next visit Has a prior hx of CAD required stent placement x2 over 20 years ago at [facility]. Will review records that was provided. Feels [...] breathing has improved since then. Essential hypertension 29454798 I10 Will add HCTZ for better BP control Increase Amlodipine 10 mg daily Carcinoma of female breast 138117515 C50.[address] Hawley. Family his tory of coronary arteriosclerosis 594075493 Z82.49 Her son passed from a MN at the age of 53. Her father passed from a MN at the age of 70. Needs maximal medical therapy and risk factor modificati on. Angina pectoris 92900257 0 I20.9 Stented co ronary artery 692313184 Z95.5 CABG X 2 done in 09/25/18:L DAYRON to mid LAD,reserv ed saphenous vein graft from aorta to D2. Dyslipidemia 054331956 E 78.5 Patient now taking ezetimibe. She could not tolerate simvastati n and rosuvastat in 10/07/18 LDL:63 [id number] Shama Melton [facility] Office [address] [place] [address] 12/28/2020 14:46:58 12/28/2020 15:22:34 Essential hypertension 02374470 I10 Fair control on current regimen Dizziness 338847160 R42 48 holter monitor obtained 03/03/2020 showed no events Improved following discontinu ation of HCTZ and decreasing torsemide to PRN Peripheral vascular disease 402829655 I73.9 Peripheral angiogram 04/08/2020 : Moderate peripheral vascular disease. AAA. Stable, asymptomat ic. Coronary arteriosclerosis 61369791 I25.10 s/p 2V CABG ( 9: QUIGLEY to mid LAD, reserved saphenous vein graft from aorta to D2) Continue maximal medical treatment Carcinoma of female breast 754890226 C50.919 Follows with oncology (Dr. Hawley) Family his tory of coronary arteriosclerosis 876385334 Z82.49 Maximal medical therapy and risk factor modificati on Dyslipidemia 958056011 E 78.5 Needs to keep LDL less than 70, and HDL more than 40. 10/07/2018 LDL 63 Continue Zetia; unable to tolerate statins. Will get fasting lipids for follow-up Atypical chest pain 1025 23339 R07.89 Treadmill Myoview Stress test, has high [place] Risk score. Has Known CAD, or CAD risk equivalent . To look for any ischemia. Abdominal aortic aneurysm 410674397 I71.4 CTA abdomen/pe lvis 04/16/2020 : Infrarenal abdominal aortic ectasia, approachin g size criteria for aneurysm (28x29 mm). 2 mm nonobstrut ing left power pole renal stone. Stable left adrenal nodules, most compatible with benign process such as adenomas. Will continue close monitoring with serial CTAs [id number] MD Laura Hess Office [address] [place] [address] 08/11/2021 16:32:23 08/11/2021 17:03:44 Essential hypertension 03957334 I10 Fair control on current regimen Dizziness 629985910 R42 48 holter monitor obtained 03/03/2020 showed no events Improved following discontinu ation of HCTZ and decreasing torsemide to PRN Peripheral vascular disease 362215871 I73.9 Peripheral angiogram 04/08/2020 : Moderate peripheral vascular disease. AAA. Stable, asymptomat ic. Coronary arteriosclerosis 49787935 I25.10 s/p 2V CABG ( 9: QUIGLEY to mid LAD, reserved saphenous vein graft from aorta to D2) Continue maximal medical treatmentO btain echo to evaluate for structural /functiona l disease. Carcinoma of female breast 142110550 C50.919 Follows with oncology (Dr. Hawley) Family his tory of coronary arteriosclerosis 083410140 Z82.49 Maximal medical therapy and risk factor modificati on Dyslipidemia 315137686 E 78.5 Needs to keep LDL less than 70, and HDL more than 40. 10/07/2018 LDL 63 Continue Zetia; unable to tolerate statins. Will get fasting lipids for follow-up Atypical chest pain 1025 88029 R07.89 Treadmill Myoview Stress test was negative Abdominal aortic aneurysm 144153870 I71.4 CTA abdomen/pe lvis 04/16/2020 : Infrarenal abdominal aortic ectasia, approachin g size criteria for aneurysm (28x29 mm). 2 mm nonobstrut ing left power pole renal stone. Stable left adrenal nodules, most compatible with benign process such as adenomas. Will continue close monitoring with serial CTAs 13475 MD Laura Hess e Office [address] [place] [address] 02/21/2022 10:39:11 02/21/2022 12:01:45 Essential hypertension 33533872 I10 Fair control on current regimen Dizziness 039282182 R42 48 holter monitor obtained 03/03/2020 showed no events Improved following discontinu ation of HCTZ and decreasing torsemide to PRN Peripheral vascular disease 861826785 I73.9 Peripheral angiogram 04/08/2020 : Moderate peripheral vascular disease. AAA. Stable, asymptomat ic. Coronary arteriosclerosis 31980365 I25.10 s/p 2V CABG ( 9: QUIGLEY to mid LAD, reserved saphenous vein graft from aorta to D2) Continue maximal medical treatmentO btain echo to evaluate for structural /functiona l disease. Carcinoma of female breast 974690076 C50.919 Follows with oncology (Dr. Hawley) Family his tory of coronary arteriosclerosis 445497515 Z82.49 Maximal medical therapy and risk factor modificati on Dyslipidemia 818927073 E 78.5 Needs to keep LDL less than 70, and HDL more than 40. Continue Zetia; unable to tolerate statins.Wi ll try on Liqview injection Atypical chest pain 1025 10897 R07.89 Treadmill Myoview Stress test was negative Abdominal aortic aneurysm 834702798 I71.4 CTA abdomen/pe lvis 04/16/2020 : Infrarenal abdominal aortic ectasia, approachin g size criteria for aneurysm (28x29 mm). 2 mm nonobstrut ing left power pole renal stone. Stable left adrenal nodules, most compatible with benign process such as adenomas. Will continue close monitoring with serial CTAs 03660 MD Laura Hess Office [address] [place] [address] 08/18/2022 11:30:27 08/18/2022 12:27:51 Essential hypertension 84635664 I10 Fair control on current regimen Dizziness 397081962 R42 better Peripheral vascular disease 072875743 I73.9 Peripheral angiogram 04/08/2020 : Moderate peripheral vascular disease. AAA. Stable, asymptomat ic. Coronary arteriosclerosis 07071492 I25.10 s/p 2V CABG ( 9: QUIGLEY to mid LAD, reserved saphenous vein graft from aorta to D2) Continue maximal medical treatmentO btain echo to evaluate for structural /functiona l disease. Carcinoma of female breast 840173868 C50.919 Follows with oncology (Dr. Hawley) Family his tory of coronary arteriosclerosis 402475067 Z82.49 Maximal medical therapy and risk factor modificati on Dyslipidemia 419707627 E 78.5 Needs to keep LDL less than 70, and HDL more than 40. Continue Zetia; unable to tolerate statins.Wi ll try on Liqview injection Atypical chest pain 1025 39116 R07.89 Treadmill Myoview Stress test was negative 44120 Adryan Stevens MD [place] OFF[facility] [place] [address] 02/08/2023 15:26:49 02/08/2023 16:29:52 Essential hypertension 92013953 I10 Fair control on current regimen Dizziness 572959392 R42 better Peripheral vascular disease 755781534 I73.9 Peripheral angiogram 04/08/2020 : Moderate peripheral vascular disease. AAA. Stable, asymptomat ic. Coronary arteriosclerosis 40960076 I25.10 s/p 2V CABG ( 9: QUIGLEY to mid LAD, reserved saphenous vein graft from aorta to D2) Continue maximal medical treatmentO btain echo to evaluate for structural /functiona l disease. Carcinoma of female breast 980163786 C50.919 Follows with oncology (Dr. Hawley) Family his tory of coronary arteriosclerosis 849283839 Z82.49 Maximal medical therapy and risk factor modificati on Dyslipidemia 819290749 E 78.5 Needs to keep LDL less than 70, and HDL more than 40. Continue Zetia; unable to tolerate statins.Wi ll try on Liqview injection Atypical chest pain 1025 45688 R07.89 Treadmill Myoview Stress test was negative 25841 SANDRA ESCOBAR [place] [facility] [address] [place] [address] 08/15/2023 15:23:56 08/15/2023 16:07:03 Essential hypertension 77952087 I10 Fair control on current regimen Peripheral vascular disease 196387246 I73.9 Peripheral angiogram 04/08/2020 : Moderate peripheral vascular disease. AAA. now with painWill get KATH's Coronary arteriosclerosis 12465996 I25.10 s/p 2V CABG ( 9: QUIGLEY to mid LAD, reserved saphenous vein graft from aorta to D2) Continue maximal medical treatmentO btain echo to evaluate for structural /functiona l disease. Carcinoma of female breast 321127539 C50.919 Follows with oncology (Dr. Hawley) Family his tory of coronary arteriosclerosis 142516321 Z82.49 Maximal medical therapy and risk factor modificati on Dyslipidemia 267573950 E 78.5 Needs to keep LDL less than 70, and HDL more than 40. Continue Zetia; unable to tolerate statins.Wi ll try on Liqview injection [id number] Adryan Stevens MD [place] OFFICE [facility] [place] [address] 03/12/2024 16:35:48 03/12/2024 17:33:43 Essential hypertension 51936739 I10 Fair control on current regimen Peripheral vascular disease 006274762 I73.9 Peripheral angiogram 04/08/2020 : Moderate peripheral vascular disease. AAA. now with painWill get KATH's Coronary arteriosclerosis 26532309 I25.10 s/p 2V CABG ( 9: QUIGLEY to mid LAD, reserved saphenous vein graft from aorta to D2) Continue maximal medical treatmentO btain echo to evaluate for structural /functiona l disease. Carcinoma of female breast 417673079 C50.919 Follows with oncology (Dr. Hawley) Family his tory of coronary arteriosclerosis 178642500 Z82.49 Maximal medical therapy and risk factor modificati on Dyslipidemia 838841991 E 78.5 Needs to keep LDL less than 70, and HDL more than 40. Continue Zetia; unable to tolerate statins.wa s on Liqviio injection , but had side effect, she stopped it 120797 dAryan Stevens MD [place] [facility]ICE [address] [place] [address] 09/17/2024 15:11:01 09/17/2024 16:21:59 Essential hypertension 45702345 I10 Fair control on current regimen Peripheral vascular disease 207283418 I73.9 Peripheral angiogram 04/08/2020 : Moderate peripheral vascular disease. AAA. Coronary arteriosclerosis 40037037 I25.10 s/p 2V CABG ( 9: QUIGLEY to mid LAD, reserved saphenous vein graft from aorta to D2) Continue maximal medical treatment Carcinoma of female breast 545319928 C50.919 Follows with oncology (Dr. Hawley) Family his tory of coronary arteriosclerosis 487798260 Z82.49 Maximal medical therapy and risk factor modificati on Dyslipidemia 132052774 E 78.5 Needs to keep LDL less than 70, and HDL more than 40. Continue Zetia; unable to tolerate statins.wa s on Liqviio injection , but had side effect, she stopped it Atypical chest pain 1025 15443 R07.89 Health Concerns Section Related Observation LastModified by Organization Detai ls LastModified Time None Recorded Concern Status LastModified by Organization Details LastModified Time None Recorded Advance Directives Directive None Recorded Payers Encounter Date Sequence Insurance Name Policy Number Policy Erickson Covered Member ID Erickson Member ID Guarantor Name 08/18/2022 1 [place] Grecia L Quinn [id number] Grecia Quinn 08/18/2022 2 WPS - FOR LIFE (SECONDARY TO MEDICARE) Grecia Quinn [id number] Grecia Quinn 02/08/2023 1 [place] Grecia L Quinn [id number] Grecia Quinn 02/08/2023 2 [employer]PS - FOR LIFE (SECONDARY TO MEDICARE) Grecia Quinn [id number] Grecia Quinn 08/15/2023 1 [place] Grecia L Quinn [id number] Grecia Quinn 08/15/2023 2 [place]PS - FOR LIFE (SECONDARY TO MEDICARE) Grecia Quinn [id number] Grecia Quinn 03/12/2024 1 [place] Grecia L Quinn [id number] Grecia Quinn 03/12/2024 2 [employer]PS - FOR LIFE (SECONDARY TO MEDICARE) Grecia Quinn [id number] Grecia Quinn 09/17/2024 1 [place] Grecia Billy Quinn [id number] Grecia Adlerox 09/17/2024 2 [employer]PS - FOR LIFE (SECONDARY TO MEDICARE) Grecia Adlerox [id number] Grecia Quinn Notes Date Note Type Note Provider Name and Address Organization Details Recorded Time 3 text/html 08/17/22CC : Cardiac follow up, dyspnea on [id number] women with a past medical history of [...] ago at [facility]. *Had CATH done in 09/22/18 revealed severe coronary artery disease with disease noted in the LAD with a severe in stent restenosis,normal LV systolic function,significant disease of right common iliac artery . She has a strong family hx of heart disease on her fathers side. Her son passed from a MN at the age of 53. Her father passed from a MN at the age of 70. Results from this visit, or from the past:PT/INR 04-03-2020 PT 13.0 INR 0.95 PTT 33BMP 04/03/2020 NA 139 K 3.8 CH 104 CO2 25 GL 112 BUN 21 CR 0.8 CA 9.0CBC 04/03/2020 WBC 5.5 RBC 4.49 HGB 13.0 HCT 40.4 PLT 0144009/17/2019 : PT 12.0,INR 0.9009/14/2019 ; Na 138,K 3.9,Cl99,Co2 29,BUN 23,Creati 0.90,Glucose 151,Ca 9.1 CBC : WBC 6.6,RBC 4.69,HGB 13.7,HCT 42.5,PLT 36627: Na 138 ,K 3.6, CL 104, CO2 24, GLU 101, BUN 13, CR 0.8,10/07/18: PT 14.0, INR 1.08,PTT : HB 11.0, HT 34.403: TC 121 ,TG 95 ,HDL 39 ,LDL 3790-90-5030XZAMW TYPE O POSCBC Hgb 11.0, PLT 380chem 10/10/18 k 3.6, cr0.8009/25/18 FACTOR XA HEPARIN 0.21abo group + rh type, blood 02-23-7186NKQMT TYPE O POS09/23/18: CA 4.8TSH, serum or plasma 48-86-6592CMW 1.: TSH 0.861lipid panel, blood : Na 138, K 3.8 ,CL 105 ,CO2 26, GLU 116 , BUN 19, CR 0.60, TC 261 ,TG 61, HDL 59,LDL 148 ,CBC w/ diff 74-56-795542/01/19: HB 13.8, HT 42.63-NSR 02/27/20 EKG: Low voltage, chest leads. Poor R progression in chest leads.08/21/2019 : EKG : Low voltage in chest leads ,PoorR progression in chest leads10/14/20-NSREKG (): NSRpoor R progression, NSST changeselectrocardiogram 66-33-0521uyiscu sinus Rhythm poor R progression,NSST changes ,Prolonged QT when compared with ECG of 09/28/2018,premature atrial complexes no longer presentEKG, 09/05/18: Sinus Rhythm. nonspecific T wave abnormality. Abnormal EKG. [facility] Ct, Angiogram, Chest, W/ Contrast 1) stable volume loss and consolidation with in the left upper lobe compared to at least 04/16/2020, Grossly stable sub 6 mm pleural nodules [...] and PVC's.Last stress test was done at [facility] over 2 years ago.Had CATH done in [...] systolic function. Abnormal stress rest. ArtifactUS, echocardiogram [id number], Chest 04/16/20:evolving post treatment changes with unchanged [...] noted. LVEF 76%. Adryan Stevens MD [address] [place], [address], [facility] 08/18/2022 12:24:28 3 text/html 02/08/23CC : Cardiac follow up, dyspnea on [id number]-eske-puc women with a past medical history of [...] ago at [facility]. *Had CATH done in 09/22/18 revealed severe coronary artery disease with disease noted in the LAD with a severe in stent restenosis,normal LV systolic function,significant disease of right common iliac artery . She has a strong family hx of heart disease on her fathers side. Her son passed from a MN at the age of 53. Her father passed from a MN at the age of 70. Results from this visit, or from the past:PT/INR 04-03-2020 PT 13.0 INR 0.95 PTT 33BMP 04/03/2020 NA 139 K 3.8 CH 104 CO2 25 GL 112 BUN 21 CR 0.8 CA 9.0CBC 04/03/2020 WBC 5.5 RBC 4.49 HGB 13.0 HCT 40.4 PLT 12466 : PT 12.0,INR 0.9009/14/2019 ; Na 138,K 3.9,Cl99,Co2 29,BUN 23,Creati 0.90,Glucose 151,Ca 9.1 CBC : WBC 6.6,RBC 4.69,HGB 13.7,HCT 42.5,PLT 26011: Na 138 ,K 3.6, CL 104, CO2 24, GLU 101, BUN 13, CR 0.8,10/07/18: PT 14.0, INR 1.08,PTT : HB 11.0, HT 34.403: TC 121 ,TG 95 ,HDL 39 ,LDL [id number] TYPE O POSCBC Hgb 11.0, PLT 380chem 10/10/18 k 3.6, cr0.802 FACTOR XA HEPARIN 0.21abo group + rh type, blood [id number] TYPE O POS02/19: CA 4.8TSH, serum or plasma 05-29-8761PWO 1.: TSH 0.861lipid panel, blood 09-60-368913/01/19: Na 138, K 3.8 ,CL 105 ,CO2 26, GLU 116 , BUN 19, CR 0.60, TC 261 ,TG 61, HDL 59,LDL 148 ,CBC w/ diff : HB 13.8, HT 42.63-NSR 02/27/20 EKG: Low voltage, chest leads. Poor R progression in chest leads.08/21/2019 : EKG : Low voltage in chest leads ,PoorR progression in chest leads10/14/20-NSREKG (): NSRpoor R progression, NSST changeselectrocardiogram 83-41-3264nbliyg sinus Rhythm poor R progression,NSST changes ,Prolonged QT when compared with ECG of 09/28/2018,premature atrial complexes no longer presentEKG, 09/05/18: Sinus Rhythm. nonspecific T wave abnormality. Abnormal EKG. [facility] Ct, Angiogram, Chest, W/ Contrast 1) stable [...] and PVC's.Last stress test was done at [facility] over 2 years ago.Had CATH done in [...] systolic function. Abnormal stress rest. ArtifactUS, echocardiogram [id number], Chest 04/16/20:evolving post treatment changes with unchanged [...] Artifact noted. LVEF 76%. Adryan Stevens MD [address] [place], [address], [facility] 02/08/2023 16:21:24 4 text/html 08/15/23CC : Cardiac follow up, dyspnea on bwfcsozm86-crfc-zuj women with a past medical history of [...] ago at [facility]. *Had CATH done in 09/22/18 revealed severe coronary artery disease with disease noted in the LAD with a severe in stent restenosis,normal LV systolic function,significant disease of right common iliac artery . She has a strong family hx of heart disease on her fathers side. Her son passed from a MN at the age of 53. Her father passed from a MN at the age of 70. Results from this visit, or from the past:PT/INR 04-03-2020 PT 13.0 INR 0.95 PTT 33BMP 04/03/2020 NA 139 K 3.8 CH 104 CO2 25 GL 112 BUN 21 CR 0.8 CA 9.0CBC 04/03/2020 WBC 5.5 RBC 4.49 HGB 13.0 HCT 40.4 PLT 1364809/17/2019 : PT 12.0,INR 0.9009/14/2019 ; Na 138,K 3.9,Cl99,Co2 29,BUN 23,Creati 0.90,Glucose 151,Ca 9.1 CBC : WBC 6.6,RBC 4.69,HGB 13.7,HCT 42.5,PLT 04956: Na 138 ,K 3.6, CL 104, CO2 24, GLU 101, BUN 13, CR 0.8,10/07/18: PT 14.0, INR 1.08,PTT : HB 11.0, HT 34.403: TC 121 ,TG 95 ,HDL 39 ,LDL [id number] TYPE O POSCBC Hgb 11.0, PLT 380chem 10/10/18 k 3.6, cr0.802 FACTOR XA HEPARIN 0.21abo group + rh type, blood [id number] TYPE O POS09/23/18: CA 4.8TSH, serum or plasma [id number] 1.: TSH 0.861lipid panel, blood 98-38-934845/01/19: Na 138, K 3.8 ,CL 105 ,CO2 26, GLU 116 , BUN 19, CR 0.60, TC 261 ,TG 61, HDL 59,LDL 148 ,CBC w/ diff : HB 13.8, HT 42.63-NSR 02/27/20 EKG: Low voltage, chest leads. Poor R progression in chest leads.08/21/2019 : EKG : Low voltage in chest leads ,PoorR progression in chest leads10/14/20-NSREKG (): NSRpoor R progression, NSST changeselectrocardiogram [id number] sinus Rhythm poor R progression,NSST changes ,Prolonged QT when compared with ECG of 09/28/2018,premature atrial complexes no longer presentEKG, 09/05/18: Sinus Rhythm. nonspecific T wave abnormality. Abnormal EKG. [facility] [place]: Ct, Angiogram, Chest, W/ Contrast 1) stable [...] and PVC's.Last stress test was done at [facility] over 2 years ago.Had CATH done in [...] systolic function. Abnormal stress rest. ArtifactUS, echocardiogram [id number], Chest 04/16/20:evolving post treatment changes with unchanged [...] test. Artifact noted. LVEF 76%. SANDRA ESCOBAR [facility] [place] - [facility] 08/15/2023 16:01:17 4 text/html 03/12/24CC : Cardiac follow [id number] women with a past medical history of [...] ago at [facility]. *Had CATH done in 09/22/18 revealed severe coronary artery disease with disease noted in the LAD with a severe in stent restenosis,normal LV systolic function,significant disease of right common iliac artery . She has a strong family hx of heart disease on her fathers side. Her son passed from a MN at the age of 53. Her father passed from a MN at the age of 70. Results from this visit, or from the past:PT/INR 04-03-2020 PT 13.0 INR 0.95 PTT 33BMP 04/03/2020 NA 139 K 3.8 CH 104 CO2 25 GL 112 BUN 21 CR 0.8 CA 9.0CBC 04/03/2020 WBC 5.5 RBC 4.49 HGB 13.0 HCT 40.4 PLT : PT 12.0,INR 0.902 ; Na 138,K 3.9,Cl99,Co2 29,BUN 23,Creati 0.90,Glucose 151,Ca 9.1 CBC : WBC 6.6,RBC 4.69,HGB 13.7,HCT 42.5,PLT 56248: Na 138 ,K 3.6, CL 104, CO2 24, GLU 101, BUN 13, CR 0.8,10/07/18: PT 14.0, INR 1.08,PTT : HB 11.0, HT 34.403: TC 121 ,TG 95 ,HDL 39 ,LDL [id number] TYPE O POSCBC Hgb 11.0, PLT 380chem 10/10/18 k 3.6, cr0.802 FACTOR XA HEPARIN 0.21abo group + rh type, blood [id number] TYPE O POS09/23/18: CA 4.8TSH, serum or plasma [id number] 1.: TSH 0.861lipid panel, blood 90-34-621098/01/19: Na 138, K 3.8 ,CL 105 ,CO2 26, GLU 116 , BUN 19, CR 0.60, TC 261 ,TG 61, HDL 59,LDL 148 ,CBC w/ diff : HB 13.8, HT 42.63-NSR 02/27/20 EKG: Low voltage, chest leads. Poor R progression in chest leads.08/21/2019 : EKG : Low voltage in chest leads ,PoorR progression in chest leads10/14/20-NSREKG (08): NSRpoor R progression, NSST changeselectrocardiogram [id number] sinus Rhythm poor R progression,NSST changes ,Prolonged QT when compared with ECG of 09/28/2018,premature atrial complexes no longer presentEKG, 09/05/18: Sinus Rhythm. nonspecific T wave abnormality. Abnormal EKG. [facility]: Ct, Angiogram, Chest, W/ Contrast 1) stable [...] and PVC's.Last stress test was done at [facility] over 2 years ago.Had CATH done in [...] systolic function. Abnormal stress rest. ArtifactUS, echocardiogram [id number], Chest 04/16/20:evolving post treatment changes with unchanged [...] noted. LVEF 76%. Adryan Stevens MD [address] [place], [address], [facility] 03/12/2024 17:29:59 5 text/html 09/17/24CC : Cardiac follow [id number] women with a past medical history of CAD s/p CABG (09/25/18), HLD, DM is here for 6 month cardiac follow up with labs and CT angiogram results. She was last seen in the clinic on 03/12/24, since then she has HypertensionShe denies ER visits and hospitalizations since she [...] on 10/14/22.Pt dose not takes any statins. 05/14/2024 : WBC 4.7 Total Hb,POC 11.0 HCT 33.2 PLT [address], Angiogram, Chest + Abdomen + Pelvis, W/wo Contrast 05/09/24: Worsening extensive band like atelectasis, scarring, and consolidation in the left upper lobe extending from the left supra hilar region. There is occlusion of several subsegmental bronchi in the left upper lobe. This could be related to disease recurrence/worsening disease or pneumonia. 2. Unchanged 8 mm ground-glass nodule in the right lower lobe and 5 mm ground-glass nodule in the right lung apex. 3. Unchanged 11 mm left adrenal nodule. 4. Unchanged 20 mm low-attenuation lesion in the left kidney demonstrating indeterminate hounsfield units but appears unhcanged since 08/26/2022. 5. Unchanged 3.3 cm infrarenal abdominal aortic aneurysm. 6. 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 Previously:*Brain MRI 11/14/23:No evidence of intracranial metastasis. Unchanged [...] Arterial on 09/05/23 showed Normal ankle-brachial index. She is on Chemo now for lung [...] ago at [facility]. *Had CATH done in 09/22/18 revealed severe coronary artery disease with disease noted in the LAD with a severe in stent restenosis,normal LV systolic function,significant disease of right common iliac artery . She has a strong family hx of heart disease on her fathers side. Her son passed from a MN at the age of 53. Her father passed from a MN at the age of 70. Results from this visit, or from the past:PT/INR 04-03-2020 PT 13.0 INR 0.95 PTT 33BMP 04/03/2020 NA 139 K 3.8 CH 104 CO2 25 GL 112 BUN 21 CR 0.8 CA 9.0CBC 04/03/2020 WBC 5.5 RBC 4.49 HGB 13.0 HCT 40.4 PLT 1787309/17/2019 : PT 12.0,INR 0.902 ; Na 138,K 3.9,Cl99,Co2 29,BUN 23,Creati 0.90,Glucose 151,Ca 9.1 CBC : WBC 6.6,RBC 4.69,HGB 13.7,HCT 42.5,PLT 20489: Na 138 ,K 3.6, CL 104, CO2 24, GLU 101, BUN 13, CR 0.8,10/07/18: PT 14.0, INR 1.08,PTT : HB 11.0, HT 34.403: TC 121 ,TG 95 ,HDL 39 ,LDL [id number] TYPE O POSCBC Hgb 11.0, PLT 380chem 10/10/18 k 3.6, cr0.8009/25/18 FACTOR XA HEPARIN 0.21abo group + rh type, blood [id number] TYPE O POS09/23/18: CA 4.8TSH, serum or plasma [id number] 1.: TSH 0.861lipid panel, blood 32-90-798031/01/19: Na 138, K 3.8 ,CL 105 ,CO2 26, GLU 116 , BUN 19, CR 0.60, TC 261 ,TG 61, HDL 59,LDL 148 ,CBC w/ diff : HB 13.8, HT 42.63-NSR 02/27/20 EKG: Low voltage, chest leads. Poor R progression in chest leads.08/21/2019 : EKG : Low voltage in chest leads ,PoorR progression in chest leads10/14/20-NSREKG (): NSRpoor R progression, NSST changeselectrocardiogram 32-31-2316teoqeb sinus Rhythm poor R progression,NSST changes ,Prolonged QT when compared with ECG of 09/28/2018,premature atrial complexes no longer presentEKG, 09/05/18: Sinus Rhythm. nonspecific T wave abnormality. Abnormal EKG. [facility]: Ct, Angiogram, Chest, W/ Contrast 1) stable [...] and PVC's.Last stress test was done at [facility] over 2 years ago.Had CATH done in [...] systolic function. Abnormal stress rest. ArtifactUS, echocardiogram [id number], Chest 04/16/20:evolving post treatment changes with unchanged [...] Artifact noted. LVEF 76%. Adryan Stevens MD [address] [place], [address], [place] - [facility] 09/17/2024 16:19:11 OBGyn Episode No OBEpisode recorded.
--- OUTSIDE RECORDS SUMMARY | 2024-09-19 00:19 | XMS_ITS | Referral Summary ---
Author Organization [facility] [address] Address [address] [place] [address] Care Team Providers Care Field Crop Technical Officer Name Role Phone Kaushik Gonzalez Unavailable Navjot Danielson MD Unavailable [phone] Rinku Hoffmann MD Unavailable [phone] Adryan Stevens MD Unavailable [phone] Romel Valerio MD PhD Unavailable Rachel Ramirez MD Unavailable [phone] Ivis Okeefe MD Unavailable [phone] Chandni Vang PALEONTOLOGICAL HELPER Primary Care Provider [phone] Encounters Date Type Department Care Team Description 09/02/2024 1:30 PM CUSTOMER DATA TECHNICIAN Office Visit [facility] Pulmonology [address] [facility] [address] [place] [address] Rachel Ramirez MD Non-small cell cancer of left lung (HCC) (Primary Dx); Chronic cough; Mixed simple and mucopurulent chronic bronchitis (HCC); Hyperinflation of lungs; Cigarette nicotine dependence in remission; S/P CABG x 2; BMI 31.0-31.9,adult; Nocturnal hypoxemia 08/23/2024 Telephone [facility] [address] [facility] [address] [place] [phone] Danica Ramirez RN 08/20/2024 2:15 PM CUSTOMER DATA TECHNICIAN Clinical Support [facility] [address] [place] [address] Malignant neoplasm of overlapping sites of left lung (HCC) 08/20/2024 2:30 PM CUSTOMER DATA TECHNICIAN Office Visit [facility] Physicians [facility] [address] [place] [address] [address] [place] [phone] Romel Valerio MD PhD Malignant neoplasm of overlapping sites of left lung (HCC) (Primary Dx) 08/06/2024 2:11 PM CUSTOMER DATA TECHNICIAN - 08/06/2024 11:59 PM CUSTOMER DATA TECHNICIAN Hospital Encounter [facility] [address] [place] [address] Malignant neoplasm of overlapping sites of left lung (HCC) Discharge Disposition: Discharge to home or self care from Last 3 Months Allergies Active Allergy Reactions Criticality Noted Date Comments Fluticasone Propion-Salmeterol Other (See comments) Low 07/28/2020 Mouth sores Other Other (See comments) Low 03/21/2022 Skin breakout from paper mask Clopidogrel Hives Medium 08/16/2018 Tiotropium [place] Hives Medium 04/02/2019 Medications denosumab (PROLIA) 60 mg/mL syringe Inject under the skin every 6 (six) months Every 6 months. Last time oct 3 Active amLODIPine (NORVASC) 5 mg tablet Take 1 tablet (5 mg total) by mouth daily Active levothyroxine (SYNTHROID, LEVOTHROID) 75 mcg tablet Take 1 tablet (75 mcg total) by mouth director of early childhood before breakfast Active aspirin 81 mg enteric [...] to face 453 g 08/15/19 23 Active albuterol 2.5 mg /3 mL (0.083 %) nebulizer solutionIndicat ions:Chronic obstructive pulmonary disease, unspecified COPD type (HCC) USE 1 VIAL IN NEBULIZER EVERY 6 HOURS - as needed for wheezing or shortness of breath 3 mL 11 08/29/19 25 Active diclofenac sodium (VOLTAREN) 1 % gel 06/17/20 24 Active osimertinib (Tagrisso) 80 mg tablet TAKE 1 TABLET DAILY 90 tablet 3 09/17/19 25 Active folic acid (FOLVITE) 1 mg tabletIndicatio [...] 360 mL 11 10/31/19 24 2024 Discontinued osimertinib (Tagrisso) 80 mg tablet Take 1 tablet (80 mg total) by mouth daily 30 tablet 3 05/16/20 24 2024 Discontinued Active Problems Problem Noted Date Diagnosed Date Nocturnal hypoxemia 10/30/2023 Hyperlipemia 09/15/2023 Disease of cardiovascular system 09/15/2023 Sleep disorder 05/25/2023 Persons encountering health services in other specified circumstances 04/19/2022 Mass of upper lobe of left lung 03/18/2022 Overview (03/18/2022): Added automatically from request for surgery [id number] BMI 31.0-31.9,adult 11/29/2021 Consolidation of left upper lobe of lung (CMS/HC C) 09/01/2021 Overview (09/01/2021): Added automatically from request for surgery [id number] Overweight 07/05/2021 Cigarette nicotine dependence in remission [...] on file Legal Sex Female 4:07 AM CUSTOMER DATA TECHNICIAN Gender Identity Not on file Sexual Orientation Not on file Last Filed Vital Signs Vital Sign Reading Time Taken Comments Blood Pressure 142/68 09/02/2024 1:10 PM CUSTOMER DATA TECHNICIAN Pulse 75 09/02/2024 1:10 PM CUSTOMER DATA TECHNICIAN Temperature 36.6 C (97.8 F) 08/20/2024 3:00 PM CUSTOMER DATA TECHNICIAN Respiratory Rate 18 08/20/2024 3:00 PM CUSTOMER DATA TECHNICIAN Oxygen Saturation 97% 09/02/2024 1:10 PM CUSTOMER DATA TECHNICIAN Inhaled Oxygen Concentration - - Weight 65.3 kg (144 lb) 09/02/2024 1:10 PM CUSTOMER DATA TECHNICIAN Height 144.8 cm (4' 9 ) 05/02/2024 2:18 PM CDT Body Mass Index 31.16 05/02/2024 2:18 PM CDT Plan of Treatment Not on file Medical Devices Implanted Type Area Unloader Operator Device Identifier Shelf Expiration Date Model / Serial / Lot Cardiac Stent Coronary Artery [employer] X[employer]a Power Port 8fr [id number] - [id number] Implanted:Qty: 1 on 06/03/2022 at [facility] [employer] 02/06/2027 [id number] / / [id number] Procedures Procedure Name Priority Date/Time Associated Diagnosis Comments EGFR Routine 08/20/2024 2:02 PM CUSTOMER DATA TECHNICIAN Malignant neoplasm of overlapping sites of left lung (HCC) DIFFERENTIAL AUTO Routine 08/20/2024 2:0 2 PM CUSTOMER DATA TECHNICIAN Malignant neoplasm of overlapping sites of left lung (HCC) CBC WITH AUTO DIFFERENTIAL Routine 08/20/2024 2:02 PM CUSTOMER DATA TECHNICIAN Malignant neoplasm of overlapping sites of left lung (HCC) COMPREHENSIVE METABOLIC PANEL Routine 08/20/2024 2:02 PM CUSTOMER DATA TECHNICIAN Malignant neoplasm of overlapping sites of left lung (HCC) CT CHEST ABDOMEN PELVIS W CONTRAST Schedule Routine, Read Routine (OP Routine) 08/06/2024 2:25 PM CUSTOMER DATA TECHNICIAN Malignant neoplasm of overlapping sites of left lung (HCC) POCT CREATININE FOR CONTRAST EVALUATION Routine 08/06/2024 2:20 PM CUSTOMER DATA TECHNICIAN from Last 3 Months Results * (ABNORMAL) eGFR (08/20/2024 2:02 PM CUSTOMER DATA TECHNICIAN) Pathologist [facility] eGFR 37(L) >=60 mL/min/1. 73 m2 Comment: Interpretive Data Reference Interval Normal >/= 90 mL/min/1.73m2 Mildly decreased* 60 - 89 mL/min/1.73m2 Mildly to moderately decreased 45 - 59 mL/min/1.73m2 Moderately to severely decreased 30 - 44 mL/min/1.73m2 Severely decreased 15 - 29 mL/min/1.73m2 Kidney Failure < 15 mL/min/1.73m2 *Relative to young adult level Estimated glomerular [...] was last reviewed 2021. Testing performed by: [address] [address] Blood 08/20/2024 2:02 PM CUSTOMER DATA TECHNICIAN 08/20/2024 2:08 PM CUSTOMER DATA TECHNICIAN us Romel Valerio MD PhD LAB BLOOD ORDERABLES Final Result [facility] [address] [facility] [place] [address] * Differential, auto (08/20/2024 2:02 PM CUSTOMER DATA TECHNICIAN) Pathologist [facility] Neutrophil abs 3.0 1.5 - 6.5 K/cumm Comment:Testing performed by : [address] [address] Imm gran abs 0.0 0.0 - 0.1 K/cumm ABD[facility]EL WALKER Comment:Testing performed by : [address] [place]., [address] Lymphocyte abs 1.3 0.8 - 3.3 K/cumm CERNER Comment:Testing performed by : [address] [address] Monocyte abs 0.6 0.2 - 0.8 K/cumm CERROB Comment:Testing performed by : [address] [address] Eosinophil abs 0.1 0.0 - 0.5 K/cumm [facility] Comment:Testing performed by : [address] [address] Basophil abs 0.0 0.0 - 0.1 K/cumm ABDIEL Comment:Testing performed by : [address] [address] Neutrophil pct 58.9 % CERROB Comment: Interpretive Data Percent cell count reference ranges are not reported, since discordance with absolute values may lead to misinterpretation of CBC data. Current Interpretive Data was last revised on 2017. Testing performed by: [address] [address] Imm gran pct 0.2 % [facility] Comment: Interpretive Data Percent cell count reference ranges are not reported, since discordance with absolute values may lead to misinterpretation of CBC data. Current Interpretive Data was last revised on 2017. Testing performed by: [address] [address] Lymphocyte pct 25.7 % CERNER Comment: Interpretive Data Percent cell count reference ranges are not reported, since discordance with absolute values may lead to misinterpretation of CBC data. Current Interpretive Data was last revised on 2017. Testing performed by: [address] [address] Monocyte pct 12.5 % CERNER Comment: Interpretive Data Percent cell count reference ranges are not reported, since discordance with absolute values may lead to misinterpretation of CBC data. Current Interpretive Data was last revised on 2017. Testing performed by: [address] [address] Eosinophil pct 2.3 % CERNER Comment: Interpretive Data Percent cell count reference ranges are not reported, since discordance with absolute values may lead to misinterpretation of CBC data. Current Interpretive Data was last revised on 2017. Testing performed by: [address] [address] Basophil pct 0.4 % [facility] WALKER Comment: Interpretive Data Percent cell count reference ranges are not reported, since discordance with absolute values may lead to misinterpretation of CBC data. Current Interpretive Data was last revised on 2017. Testing performed by: [address] [address] Blood 08/20/2024 2:02 PM CUSTOMER DATA TECHNICIAN 08/20/2024 2:08 PM CUSTOMER DATA TECHNICIAN us Romel Valerio MD PhD LAB BLOOD ORDERABLES Final Result [facility] Department [place] [address] * (ABNORMAL) CBC with auto differential (08/20/2024 2:02 PM CUSTOMER DATA TECHNICIAN) WBC 5.1 3.8 - 9.9 K/cumm Comment:Testing performed by : [address] [address] Hgb 10.9(L) 11.9 - 15.5 g/dL [facility]EL WALKER Comment:Testing performed by : [address] [address] Hct 34.0(L) 35.6 - 45.5 % [facility]EL WALKER Comment:Testing performed by : [address] [address] Plt 221 150 - 400 K/cumm [facility]EL WALKER Comment:Testing performed by : [address] [address] MPV 9.1 9.1 - 12.3 fL [facility] WALKER Comment:Testing performed by : [address] [address] RBC 4.04 3.90 - 5.20 M/cumm [facility] WALKER Comment:Testing performed by : [address] [address] MCV 84.2 81.3 - 96.4 fL [facility] WALKER Comment:Testing performed by : [address] [address] MCH 27.0(L) 27.1 - 33.3 pg [facility]EL WALKER Comment:Testing performed by : [address] [address] MCHC 32.1(L) 32.3 - 35.7 g/dL [facility] WALKER Comment:Testing performed by : [address] [address] RDW CV 15.9(H) 11.1 - 14.9 % [facility] WALKER Comment:Testing performed by : [address] [address] RDW SD 49.1(H) 35.7 - 48.1 fL [facility] WALKER Comment:Testing performed by : [address] [address] NRBC abs 0.00 0.00 - 0.01 K/cumm [facility] WALKER Comment:Testing performed by : [address] [address] Blood 08/20/2024 2:02 PM CUSTOMER DATA TECHNICIAN 08/20/2024 2:08 PM CUSTOMER DATA TECHNICIAN us Romel Valerio MD PhD LAB BLOOD ORDERABLES Final Result [facility] [address] [facility] Department of Laboratories [place], [place] [id number] * (ABNORMAL) Comprehensive metabolic panel (08/20/2024 2:02 PM CUSTOMER DATA TECHNICIAN) Sodium 137 135 - 145 mmol/L Comment:Testing performed by : [address] [address] Potassium, pl 4.0 3.3 - 4.9 mmol/L [facility] WALKER Comment:Testing performed by : [address] [address] Chloride 100 97 - 110 mmol/L [facility]EL WALKER Comment:Testing performed by : [facility], [address] [place] [address]., [address] CO2 24 22 - 32 mmol/L ABDIEL Comment:Testing performed by : [address] [address] Anion gap 13 2 - 15 mmol/L ABDIEL Comment:Testing performed by : [address] [address] BUN 24 6 - 25 mg/dL ABDIEL Comment:Testing performed by : [address] [address] Creatinine 1.40(H) 0.60 - 1.10 mg/dL ABDIEL Comment:Testing performed by : [address] [address] Glucose 107 70 - 199 mg/dL ABDIEL Comment: Interpretive Data Fasting glucose >/= 126 mg/dl is diagnostic for diabetes. Fasting is defined as no caloric intake [...] was last revised 2022. Testing performed by: [address] [address] Calcium 9.1 8.5 - 10.3 mg/dL ABDIEL Comment:Testing performed by : [address] [address] Bilirubin, total 0.2 0.1 - 1.2 mg/dL ABDIEL Comment:Testing performed by : [address] [address] Protein, pl 7.3 6.5 - 8.5 g/dL A[facility]IEL Comment:Testing performed by : [address] [address] Albumin 4.1 3.5 - 5.0 g/dL [facility]EL Comment:Testing performed by : [address] [address] Alk phos 57 40 - 130 Units/L A[facility]IEL Comment:Testing performed by : [address] [address] ALT 15 7 - 45 Units/L [facility] WALKER Comment:Testing performed by : [address] [address] AST 27 10 - 45 Units/L [facility] WALKER Comment:Testing performed by : [address] [address] Blood 08/20/2024 2:02 PM CUSTOMER DATA TECHNICIAN 08/20/2024 2:08 PM CUSTOMER DATA TECHNICIAN us Romel Valerio MD PhD LAB BLOOD ORDERABLES Final Result [facility] [address] [facility] Department [place] [address] * CT chest abdomen pelvis with contrast (08/06/2024 2:25 PM CUSTOMER DATA TECHNICIAN) Anatomical Region Laterality Modality Body N/A Computed Tomogra phy 08/12/2024 8:06 AM CUSTOMER DATA TECHNICIAN Narrative 08/12/2024 8:23 AM CUSTOMER DATA TECHNICIAN EXAM DESCRIPTION: CT CHEST ABDOMEN PELVIS W CONTRAST REASON FOR STUDY: Restaging lung ca Restaging lung ca, Malignant neoplasm of overlapping sites of left lung (HCC) TECHNIQUE: CT scan of the chest, abdomen, and pelvis performed with intravenous and without oral contrast using helical scanning technique with dynamic [...] loss. There is a right upper lobe 0.4 cm (series 3 image 21). There is medial right lower lobe paravertebral atelectasis. PLEURA: No pleural effusion or pneumothorax. MEDIASTINUM/SHIRLEY: No mediastinal or hilar mass. HEART: Heart size normal. No pericardial effusion. There is a similar appearance at the left ventricular apex which appears to be a area of thinned myocardium likely from apical infarction. Mitral annular [...] and contour are normal. No focal hepatic lesion. Portal and hepatic veins are patent. GALLBLADDER: No gallstones or overt inflammatory change. BILE DUCTS: No biliary ductal dilation. SPLEEN: Spleen size is normal. No focal splenic lesion. PANCREAS: No pancreatic mass or inflammatory change. ADRENALS: Normal KIDNEYS/URINARY TRACT: No right renal calculus. No left renal calculus. No hydronephrosis or hydroureter. There is the low-density lesion in the mid left kidney 1 cm, 72 Hounsfield units. There is a calculus from the lower pole the left kidney 0.4 cm (series 6, image 47). Right renal vascular calcifications are noted. Small amount of fluid urinary bladder. The urinary bladder is predominantly decompressed. There is some mucosal enhancement of the urinary bladder wall. GI: No evidence of bowel obstruction. Minimal colonic diverticulosis. No evidence of acute diverticulitis. The terminal ileum is normal. The appendix is not identified. PERITONEUM: No ascites or free air. No mesenteric mass or lymphadenopathy. RETROPERITONEUM: No retroperitoneal mass or lymphadenopathy. REPRODUCTIVE: No significant abnormalities are seen. The uterus is surgically absent. There is no adnexal mass. VASCULATURE ABDOMEN: Abdominal aorta is mildly aneurysmal, this measures 3.4 by 3.4 cm (series 6, image 52). Moderate atheromatous calcification of the iliac arteries. MUSCULOSKELETAL ABDOMEN PELVIS: Bone windows demonstrate no acute or aggressive osseous abnormality. There is trace anterolisthesis L3 on L4 and L4 on L5. OTHER: No significant abnormality. [...] is stable from 08/26/2022 by remains indeterminate. If this has not been fully characterized, could consider renal mass protocol MRI or CT. Nonobstructing left renal calculus 0.4 cm. Hysterectomy. THIS IS AN ELECTRONICALLY VERIFIED FINAL REPORT 08/12/2024 8:23 AM - Electronically signed by Dennys Armstrong M.D. CH: DAMON Report ID: [id number] Reading Location: [place] [address] Procedure Note Dennys Armstrong Jr., MD - [...] Dennys Armstrong M.D. CH: DAMON Report ID: [id number] Reading Location: [id number] us Romel Valerio MD PhD IMG CT PROCEDURES Fin al Result * (ABNORMAL) POCT creatinine for contrast evaluation (08/06/2024 2:20 PM CUSTOMER DATA TECHNICIAN) Creatinine POC 1.20(H) 0.60 - 1.10 mg/dL Comment:Testing performed by : [facility], [address] [place] [address]., [address] Blood 08/06/2024 2:20 PM CUSTOMER DATA TECHNICIAN 08/06/2024 2:20 PM CUSTOMER DATA TECHNICIAN us Romel Valerio MD PhD POINT OF CARE TEST OR DERABLES Final Result [facility] [address] [facility] [place] [address] from Last 3 Months Insurance MEDICARE FOR LIFE MEDICARE FOR LIFE MEDICARE FOR LIFE Advance Directives For more information, please contact: [phone] Documents on File Type Date Recorded Patient Manager Outreach Expl anation ADVANCE DIRECTIVE 09/30/2018 12:00 AM JAY JAY R OF STRUCTURAL IRON WORKER FINANCIAL/MEDICAL * Full Code (Latest Code Status on File) Date Activated Date Inactivated Comments 06/03/2022 8:52 AM 06/04/2022 5:14 AM Care Teams Field Crop Technical Officer Relationship Specialty Start Date End Date Chandni Vang NP [address] [place] [address] PCP - General Nurse Practitioner 08/22/23 Kaushik Gonzalez DO Referring Physician Internal Medicine 08/09/18 Navjot Danielson MD Cardiothoracic Surgery 08/21/18 Rinku Hoffmann MD Radiation Oncologist Radiation Oncology 07/28/21 Adryan Stevens MD Consulting Physician Cardiovascular Disease 09/02/21 Romel Valerio MD PhD [address] [place] [address] MEDICAL ONCOLOGY, [address] [address] Consulting Physician Medical Oncology 04/04/22 Rachel Ramirez MD [address] [place] [address] MEDICAL ONCOLOGY, [address] [address] Consulting Physician Pulmonary Disease 04/20/22 Ivis Okeefe MD [address] [place] [address] MEDICAL ONCOLOGY, [address] [address] Referring Physician Dermatology 08/30/22
--- OUTSIDE RECORDS SUMMARY | 2024-09-19 00:20 | XMS_ITS | Clinical Summary ---
Author Organization [facility] Address [address] [place] [id number] Phone Care Team Providers Care Software Engineer Mobile Name Role Phone Unavailable Primary Care Provider [...] Diagnosed Date Atherosclerotic heart diseas e of [place] coronary artery without angina pectoris 05/15/2016 Essential [...] Comments Blood Pressure 148/82 10/05/2016 12:01 AM TRANSITIONAL CARE LIAISON Sitting, Right Pulse - - Temperature 36.8 C (98.3 F) 10/05/2016 12:01 AM TRANSITIONAL CARE LIAISON Respiratory Rate - - Oxygen Saturation - - Inhaled Oxygen Concentration - - Weight 63.5 kg (140 lb) 10/05/2016 12:0 1 AM TRANSITIONAL CARE LIAISON Height 144.8 cm (4' 9 ) 10/05/2016 12:0 1 AM TRANSITIONAL CARE LIAISON Body Mass Index 30.3 10/05/2016 12:01 AM TRANSITIONAL CARE LIAISON Plan of Treatment Not on file
--- OUTSIDE RECORDS SUMMARY | 2024-09-19 00:20 | XMS_ITS | Encounter Summary ---
Author Organization [facility] Care Team Providers Care Ssis Etl Developer Name Role Phone Kaushik Gonzalez DO Primary Care Provider [phone] Kaushik Gonzalez DO Primary Care Provider [phone] Kaushik Gonzalez DO Unavailable Kaushik Gonzalez DO Unavailable Navjot Danielson MD Unavailable [phone] Checo Hawley MD Unavailable [phone] Rinku Hoffmann MD Unavailable [phone] Adryan Stevens MD Unavailable [phone] Romel Valerio MD PhD Unavailable [phone] Rachel Ramirez MD Unavailable [phone] Ivis Okeefe MD Unavailable [phone] Chandni Vang Primary Care Provider Unavailabl e Kaushik Gonzalez DO Primary Care Provider [phone] Chandni Vang NP Primary Care Provider [phone] Encounter Details Date Type Department Care Team (Latest Contact Info) Description 09/06/2018 Orders Only [facility] ProviderNahum MD [address] [place] [address] Social History Tobacco Use Types Packs/Day Years Used Date Smoking Tobacco: Every Day Smokeless Tobacco: Never Alcohol Use Standard Drinks/Week Comments Yes 0 (1 standard drink = 0.6 oz pur e alcohol) Comments Unknown Sex and Gender Information Value Date Recorded Sex Assigned at Not on file Legal Sex Female 4:07 AM COMMUNICATIONS ENGINEER Gender Identity Not on file Sexual Orientation Not on file documented as of this encounter Plan of Treatment Not on file documented as of this encounter Procedures Procedure Name Priority Date/Time Associated Diagnosis Comments PROCEDURE - RESULT 09/10/2018 12 :00 AM COMMUNICATIONS ENGINEER documented in this encounter Results * PROCEDURE - RESULT (09/10/2018 12:00 AM COMMUNICATIONS ENGINEER) Narrative 09/10/2018 12:00 AM COMMUNICATIONS ENGINEER Ordered by an unspecified provider. us Historical Provider Final Res ult documented in this encounter Visit Diagnoses Not on filedocumented in this encounter Additional Health Concerns Infection Onset Date Last Indicated Resolved Time COVID: Suspected 09/06/2021 09/06/2021 09/06/2021 10:47 PM COMMUNICATIONS ENGINEER documented as of this encounter Care Teams Ssis Etl Developer Relationship Specialty Start Date End Date Kaushik Gonzalez DO PCP - General Internal Medicine 08/09/18 09/20/18 Kaushik Gonzalez DO PCP - General 09/21/18 01/23/23 Chandni Vang PCP - General Family Medicine 01/24/23 02/27/23 Kaushik Gonzalez DO PCP - General Internal Medicine 02/28/23 08/21/23 Chandni Vang NP [address] [place] [address] PCP - General Nurse Practitioner 08/22/23 Kaushik Gonzalez DO Internal Medicine 09/21/18 02/27/23 Kaushik Gonzalez DO Referring Physician Internal Medicine 08/09/18 Navjot Danielson MD Cardiothoracic Surgery 08/21/18 Checo Hawley MD Medical Oncologist/Hematologis t Hematology and Oncology 08/31/18 04/03/22 Rinku Hoffmann MD Radiation Oncologist Radiation Oncology 07/28/21 Adryan Stevens MD Consulting Physician Cardiovascular Disease 09/02/21 Romel Valerio MD PhD [address] [place] [address] MEDICAL ONCOLOGY, [address] [phone] Consulting Physician Medical Oncology 04/04/22 Rachel Ramirez MD [address] [place] [address] MEDICAL ONCOLOGY, [address] [phone] Consulting Physician Pulmonary Disease 04/20/22 Ivis Okeefe MD [address] [place] [address] MEDICAL ONCOLOGY, [address] [phone] Referring Physician Dermatology 08/30/22 documented as of this encounter
--- OUTSIDE RECORDS SUMMARY | 2024-09-19 00:20 | XMS_ITS | Encounter Summary ---
Author Organization [facility] Facility Care Team Providers Care Satellite Dish Technician Name Role Phone Kaushik Gonzalez DO Primary Care Provider [phone] Kaushik Gonzalez DO Primary Care Provider [phone] Kaushik Gonzalez DO Unavailable Kaushik Gonzalez DO Unavailable Navjot Danielson MD Unavailable [phone] Checo Hawley MD Unavailable [phone] Rinku Hoffmann MD Unavailable [phone] Adryan Stevens MD Unavailable [phone] Romel Valerio MD PhD Unavailable [phone] Rachel Ramirez MD Unavailable [phone] Ivis Okeefe MD Unavailable [phone] Chandni Vang Primary Care Provider Unavailabl e Kaushik Gonzalez DO Primary Care Provider [phone] Chandni Vang NP Primary Care Provider [phone] Encounter Details Date Type Department Care Team (Latest Contact Info) Description 09/10/2018 Orders Only [facility] CLINCON[facility] ProviderNahum MD [address] [place] [id number] Social History Tobacco Use Types Packs/Day Years Used Date Smoking Tobacco: Every Day Smokeless Tobacco: Never Alcohol Use Standard Drinks/Week Comments Yes 0 (1 standard drink = 0.6 oz pur e alcohol) Comments Unknown Sex and Gender Information Value Date Recorded Sex Assigned at Not on file Legal Sex Female 4:07 AM TRIP MOTOR OPERATOR Gender Identity Not on file Sexual Orientation Not on file documented as of this encounter Plan of Treatment Not on file documented as of this encounter Procedures Procedure Name Priority Date/Time Associated Diagnosis Comments PROCEDURE - RESULT 09/10/2018 12 :00 AM TRIP MOTOR OPERATOR documented in this encounter Results * PROCEDURE - RESULT (09/10/2018 12:00 AM TRIP MOTOR OPERATOR) Narrative 09/10/2018 12:00 AM TRIP MOTOR OPERATOR Ordered by an unspecified provider. us Historical Provider Final Res ult documented in this encounter Visit Diagnoses Not on filedocumented in this encounter Additional Health Concerns Infection Onset Date Last Indicated Resolved Time COVID: Suspected 09/06/2021 09/06/2021 09/06/2021 10:47 PM TRIP MOTOR OPERATOR documented as of this encounter Care Teams Satellite Dish Technician Relationship Specialty Start Date End Date Kaushik Gonzalez DO PCP - General Internal Medicine 08/09/18 09/20/18 Kaushik Gonzalez DO PCP - General 09/21/18 01/23/23 Chandni Vang PCP - General Family Medicine 01/24/23 02/27/23 Kaushik Gonzalez DO PCP - General Internal Medicine 02/28/23 08/21/23 Chandni Vang NP [address] [place] [address] PCP - General Nurse Practitioner 08/22/23 Kaushik Gonzalez DO Internal Medicine 09/21/18 02/27/23 Kaushik Gonzalez DO Referring Physician Internal Medicine 08/09/18 Navjot Danielson MD Cardiothoracic Surgery 08/21/18 Checo Hawley MD Medical Oncologist/Hematologis t Hematology and Oncology 08/31/18 04/03/22 Rinku Hoffmann MD Radiation Oncologist Radiation Oncology 07/28/21 Adryan Stevens MD Consulting Physician Cardiovascular Disease 09/02/21 Romel Valerio MD PhD [address] [place] [address] MEDICAL ONCOLOGY, [address] [id number] Consulting Physician Medical Oncology 04/04/22 Rachel Ramirez MD [address] [place] [address] MEDICAL ONCOLOGY, [address] [id number] Consulting Physician Pulmonary Disease 04/20/22 Ivis Okeefe MD [address] [place] [address] MEDICAL ONCOLOGY, [address] [id number] Referring Physician Dermatology 08/30/22 documented as of this encounter
--- OUTSIDE RECORDS SUMMARY | 2024-09-19 00:20 | XMS_ITS | Clinical Summary ---
Author Organization [facility] [address] Address [address] [place] [address] Care Team Providers Care Director Advanced Name Role Phone Kaushik Gonzalez Unavailable Navjot Danielson MD Unavailable [phone] Rinku Hoffmann MD Unavailable [phone] Adryan Stevens MD Unavailable [phone] Romel Valerio MD PhD Unavailable Rachel Ramirez MD Unavailable [phone] Ivis Okeefe MD Unavailable [phone] Chandni Vang NP Primary Care Provider [phone] Allergies Active Allergy Reactions Criticality Noted Date Comments Fluticasone Propion-Salmeterol Other (See comments) Low 07/28/2020 Mouth sores Other Other (See comments) Low 03/21/2022 Skin breakout from paper mask Clopidogrel Hives Medium 08/16/2018 Tiotropium [place] Hives Medium 04/02/2019 Medications denosumab (PROLIA) 60 mg/mL syringe Inject under the skin every 6 (six) months Every 6 months. Last time oct 3 Active amLODIPine (NORVASC) 5 mg tablet Take 1 tablet (5 mg total) by mouth daily Active levothyroxine (SYNTHROID, LEVOTHROID) 75 mcg tablet Take 1 tablet (75 mcg total) by mouth advanced research programs director before breakfast Active aspirin 81 mg enteric [...] (03/18/2022): Added automatically from request for surgery [id number] BMI 31.0-31.9,adult 11/29/2021 Consolidation of left upper lobe of lung (CMS/HC C) 09/01/2021 Overview (09/01/2021): Added automatically from request for surgery [id number] Overweight 07/05/2021 Cigarette nicotine dependence in remission [...] Department Care Team Description 09/02/2024 1:30 PM PUBLIC EVENTS FACILITIES RENTAL MANAGER Office Visit [facility] Pulmonology [address] [place] [address] Rachel Ramirez MD Non-small cell cancer of left lung (HCC) (Primary Dx); Chronic cough; Mixed simple and mucopurulent chronic bronchitis (HCC); Hyperinflation of lungs; Cigarette nicotine dependence in remission; S/P CABG x 2; BMI 31.0-31.9,adult; Nocturnal hypoxemia 08/23/2024 Telephone [facility] Oncology [facility] [facility] [address] [place] [address] Danica Ramirez RN 08/20/2024 2:30 PM PUBLIC EVENTS FACILITIES RENTAL MANAGER Office Visit [facility] Oncology [address] [place] [address] Romel Valerio MD PhD Malignant neoplasm of overlapping sites of left lung (HCC) (Primary Dx) 08/20/2024 2:15 PM PUBLIC EVENTS FACILITIES RENTAL MANAGER Clinical Support [facility] [address] [place] [address] Malignant neoplasm of overlapping sites of left lung (HCC) 08/06/2024 2:11 PM PUBLIC EVENTS FACILITIES RENTAL MANAGER - 08/06/2024 11:59 PM PUBLIC EVENTS FACILITIES RENTAL MANAGER Hospital Encounter [facility] [address] [place], [place] [id number] Malignant neoplasm of overlapping sites of left [...] meds COPD (chronic obstructive pu lmonary disease) ([facility]) Shingles 11/2020 has had on and o [...] incontinence wears pad Abdominal aortic aneurysm (AAA) ([facility]) seen on angiogram, primary monitoring Presence of dental bridge perman ent Dental crown present Non-small cell cancer of lef t lung (HCC) 11/08/2018 radiation last 2019 PVD (peripheral vascular dis ease) ([facility]) Hypothyroidism Anxiety Depression Muscle pain legs Redness [...] on file Legal Sex Female 4:07 AM PUBLIC EVENTS FACILITIES RENTAL MANAGER Gender Identity Not on file Sexual Orientation Not on file Obstetrics History Last Filed Vital Signs Vital Sign Reading Time Taken Comments Blood Pressure 142/68 09/02/2024 1:10 PM PUBLIC EVENTS FACILITIES RENTAL MANAGER Pulse 75 09/02/2024 1:10 PM PUBLIC EVENTS FACILITIES RENTAL MANAGER Temperature 36.6 C (97.8 F) 08/20/2024 3:00 PM PUBLIC EVENTS FACILITIES RENTAL MANAGER Respiratory Rate 18 08/20/2024 3:00 PM PUBLIC EVENTS FACILITIES RENTAL MANAGER Oxygen Saturation 97% 09/02/2024 1:10 PM PUBLIC EVENTS FACILITIES RENTAL MANAGER Inhaled Oxygen Concentration - - Weight 65.3 kg (144 lb) 09/02/2024 1:10 PM PUBLIC EVENTS FACILITIES RENTAL MANAGER Height 144.8 cm (4' 9 ) 05/02/2024 [...] (#1) 2024 Medical Devices Implanted Type Area Slot Floor Supervisor Device Identifier Shelf Expiration Date Model / Serial / Lot Cardiac Stent Coronary Artery [employer] Power Port 8fr [id number] - [id number] Implanted:Qty: 1 on 06/03/2022 at [facility] [employer] 02/06/2027 [id number] / / [id number] Procedures Procedure Name Priority Date/Time Associated Diagnosis Comments EGFR Routine 08/20/2024 2:02 PM PUBLIC EVENTS FACILITIES RENTAL MANAGER Malignant neoplasm of overlapping sites of left lung (HCC) DIFFERENTIAL AUTO Routine 08/20/2024 2:0 2 PM PUBLIC EVENTS FACILITIES RENTAL MANAGER Malignant neoplasm of overlapping sites of left lung (HCC) CBC WITH AUTO DIFFERENTIAL Routine 08/20/2024 2:02 PM PUBLIC EVENTS FACILITIES RENTAL MANAGER Malignant neoplasm of overlapping sites of left lung (HCC) COMPREHENSIVE METABOLIC PANEL Routine 08/20/2024 2:02 PM PUBLIC EVENTS FACILITIES RENTAL MANAGER Malignant neoplasm of overlapping sites of left lung (HCC) CT CHEST ABDOMEN PELVIS W CONTRAST Schedule Routine, Read Routine (OP Routine) 08/06/2024 2:25 PM PUBLIC EVENTS FACILITIES RENTAL MANAGER Malignant neoplasm of overlapping sites of left lung (HCC) POCT CREATININE FOR CONTRAST EVALUATION Routine 08/06/2024 2:20 PM PUBLIC EVENTS FACILITIES RENTAL MANAGER from Last 3 Months Results * (ABNORMAL) eGFR (08/20/2024 2:02 PM PUBLIC EVENTS FACILITIES RENTAL MANAGER) Pathologist [facility] [place] eGFR 37(L) [...] was last reviewed 2021. Testing performed by: [facility], [address] [place] [address]., [address] Blood 08/20/2024 2:02 PM PUBLIC EVENTS FACILITIES RENTAL MANAGER 08/20/2024 2:08 PM PUBLIC EVENTS FACILITIES RENTAL MANAGER us Romel Valerio MD PhD LAB BLOOD ORDERABLES Final Result [facility] [address] Department [place] [address] * Differential, auto (08/20/2024 2:02 PM PUBLIC EVENTS FACILITIES RENTAL MANAGER) Neutrophil abs 3.0 1.5 - 6.5 K/cumm Comment:Testing performed by : [address] [address] Imm gran abs 0.0 0.0 - 0.1 K/cumm [facility] Comment:Testing performed by : [address], [place]., [address] Lymphocyte abs 1.3 0.8 - 3.3 K/cumm [facility] Comment:Testing performed by : [address], [place]., [address] Monocyte abs 0.6 0.2 - 0.8 K/cumm [facility] Comment:Testing performed by : [address] [address] Eosinophil abs 0.1 0.0 - 0.5 K/cumm [facility] Comment:Testing performed by : [address] [address] Basophil abs 0.0 0.0 - 0.1 K/cumm [facility] Comment:Testing performed by : [address] [address] Neutrophil pct 58.9 % [facility] Comment: Interpretive Data Percent cell count reference ranges are not reported, since discordance with absolute values may lead to misinterpretation of CBC data. Current Interpretive Data was last revised on 2017. Testing performed by: [address] [address] Imm gran pct 0.2 % [facility] Comment: Interpretive Data Percent cell count reference ranges are not reported, since discordance with absolute values may lead to misinterpretation of CBC data. Current Interpretive Data was last revised on 2017. Testing performed by: [address] [address] Lymphocyte pct 25.7 % [facility] Comment: Interpretive Data Percent cell count reference ranges are not reported, since discordance with absolute values may lead to misinterpretation of CBC data. Current Interpretive Data was last revised on 2017. Testing performed by: [address] [address] Monocyte pct 12.5 % [facility] Comment: Interpretive Data Percent cell count reference ranges are not reported, since discordance with absolute values may lead to misinterpretation of CBC data. Current Interpretive Data was last revised on 2017. Testing performed by: [address] [address] Eosinophil pct 2.3 % [facility] Comment: Interpretive Data Percent cell count reference ranges are not reported, since discordance with absolute values may lead to misinterpretation of CBC data. Current Interpretive Data was last revised on 2017. Testing performed by: [address] [address] Basophil pct 0.4 % [facility] Comment: Interpretive Data Percent cell count reference ranges are not reported, since discordance with absolute values may lead to misinterpretation of CBC data. Current Interpretive Data was last revised on 2017. Testing performed by: [address] [address] Blood 08/20/2024 2:02 PM PUBLIC EVENTS FACILITIES RENTAL MANAGER 08/20/2024 2:08 PM PUBLIC EVENTS FACILITIES RENTAL MANAGER us Romel Valerio MD PhD LAB BLOOD ORDERABLES Final Result [facility] [address] Department of Laboratories [place], [place] [id number] * (ABNORMAL) CBC with auto differential (08/20/2024 2:02 PM PUBLIC EVENTS FACILITIES RENTAL MANAGER) Pathologist [facility] [place] WBC 5.1 3.8 - 9.9 K/cumm Comment:Testing performed by : [address] [address] Hgb 10.9(L) 11.9 - 15.5 g/dL [facility] Comment:Testing performed by : [address] [address] Hct 34.0(L) 35.6 - 45.5 % [facility] Comment:Testing performed by : [address] [address] Plt 221 150 - 400 K/cumm [facility] Comment:Testing performed by : [address] [place]., [address] MPV 9.1 9.1 - 12.3 fL [facility] Comment:Testing performed by : [address] [address] RBC 4.04 3.90 - 5.20 M/cumm [facility] Comment:Testing performed by : [address] [address] MCV 84.2 81.3 - 96.4 fL [facility] Comment:Testing performed by : [address] [address] MCH 27.0(L) 27.1 - 33.3 pg [facility] Comment:Testing performed by : [address] [address] MCHC 32.1(L) 32.3 - 35.7 g/dL [facility] Comment:Testing performed by : [address] [address] RDW CV 15.9(H) 11.1 - 14.9 % [facility] Comment:Testing performed by : [address] [address] RDW SD 49.1(H) 35.7 - 48.1 fL [facility] Comment:Testing performed by : [address] [address] NRBC abs 0.00 0.00 - 0.01 K/cumm [facility] Comment:Testing performed by : [address], [address] Blood 08/20/2024 2:02 PM PUBLIC EVENTS FACILITIES RENTAL MANAGER 08/20/2024 2:08 PM PUBLIC EVENTS FACILITIES RENTAL MANAGER us Romle Valerio MD PhD LAB BLOOD ORDERABLES Final Result [facility] [address] [facility] [address] Department of Laboratories [place], [place] [id number] * (ABNORMAL) Comprehensive metabolic panel (08/20/2024 2:02 PM PUBLIC EVENTS FACILITIES RENTAL MANAGER) Sodium 137 135 - 145 mmol/L Comment:Testing performed by : [address] [address] Potassium, pl 4.0 3.3 - 4.9 mmol/L [facility] Comment:Testing performed by : [address] [address] Chloride 100 97 - 110 mmol/L [facility] Comment:Testing performed by : [address], [place]., [address] CO2 24 22 - 32 mmol/L [facility] Comment:Testing performed by : [address], [place]., [address] Anion gap 13 2 - 15 mmol/L [facility] Comment:Testing performed by : [address], [place]., [address] BUN 24 6 - 25 mg/dL [facility] Comment:Testing performed by : [address], [place]., [address] Creatinine 1.40(H) 0.60 - 1.10 mg/dL [facility] Comment:Testing performed by : [address], [place]., [address] Glucose 107 70 - 199 mg/dL [facility] Comment: Interpretive Data Fasting glucose >/= 126 [...] was last revised 2022. Testing performed by: [address] [address] Calcium 9.1 8.5 - 10.3 mg/dL [facility] Comment:Testing performed by : [address], [place]., [address] Bilirubin, total 0.2 0.1 - 1.2 mg/dL [facility] Comment:Testing performed by : [address] [address] Protein, pl 7.3 6.5 - 8.5 g/dL [facility] Comment:Testing performed by : [address] [address] Albumin 4.1 3.5 - 5.0 g/dL [facility] Comment:Testing performed by : [address] [address] Alk phos 57 40 - 130 Units/L [facility] Comment:Testing performed by : [address] [address] ALT 15 7 - 45 Units/L [facility] Comment:Testing performed by : [address] [address] AST 27 10 - 45 Units/L [facility] Comment:Testing performed by : [address] [address] Blood 08/20/2024 2:02 PM PUBLIC EVENTS FACILITIES RENTAL MANAGER 08/20/2024 2:08 PM PUBLIC EVENTS FACILITIES RENTAL MANAGER us Romel Valerio MD PhD LAB BLOOD ORDERABLES Final Result [place] [id number] [facility] Department [place] [address] * CT chest abdomen pelvis with contrast (08/06/2024 2:25 PM PUBLIC EVENTS FACILITIES RENTAL MANAGER) Anatomical Region Laterality Modality Body N/A Computed Tomogra phy 08/12/2024 8:06 AM PUBLIC EVENTS FACILITIES RENTAL MANAGER Narrative 08/12/2024 8:23 AM PUBLIC EVENTS FACILITIES RENTAL MANAGER EXAM DESCRIPTION: CT CHEST ABDOMEN PELVIS W [...] Dennys Armstrong M.D. CH: DAMON Report ID: [id number] Reading Location: [id number] Procedure Note Dennys Armstrong Jr., MD - [...] Dennys Armstrong M.D. CH: DAMON Report ID: [id number] Reading Location: [id number] us Romel Valerio MD PhD IMG CT PROCEDURES Fin al Result * (ABNORMAL) POCT creatinine for contrast evaluation (08/06/2024 2:20 PM PUBLIC EVENTS FACILITIES RENTAL MANAGER) Creatinine POC 1.20(H) 0.60 - 1.10 mg/dL Comment:Testing performed by : [facility], [address] [place] [address]., [address] Blood 08/06/2024 2:20 PM PUBLIC EVENTS FACILITIES RENTAL MANAGER 08/06/2024 2:20 PM PUBLIC EVENTS FACILITIES RENTAL MANAGER Romel Valerio MD PhD POINT OF CARE TEST OR DERABLES Final Result [facility] [address] Department of Laboratories [place], [place] [id number] from Last 3 Months Insurance MEDICARE FOR LIFE MEDICARE FOR LIFE MEDICARE FOR LIFE Advance Directives For more information, please contact: [phone] Documents on File Type Date Recorded Patient Utility System Operator Expl anation ADVANCE DIRECTIVE 09/30/2018 12:00 AM JAY JAY R OF DIESEL PILE DRIVER OPERATOR FINANCIAL/MEDICAL * Full Code (Latest Code Status on File) Date Activated Date Inactivated Comments 06/03/2022 8:52 AM 06/04/2022 5:14 AM Care Teams Director Advanced Relationship Specialty Start Date End Date Chandni Vang NP [address] [place] [id number] PCP - General Nurse Practitioner 08/22/23 Kaushik Gonzalez DO Referring Physician Internal Medicine 08/09/18 Navjot Danielson MD Cardiothoracic Surgery 08/21/18 Rinku Hoffmann MD Radiation Oncologist Radiation Oncology 07/28/21 Adryan Stevens MD Consulting Physician Cardiovascular Disease 09/02/21 Romel Valerio MD PhD [address] [place] [address] MEDICAL ONCOLOGY, [address] [id number] Consulting Physician Medical Oncology 04/04/22 Rachel Ramirez MD [address] [place] [address] MEDICAL ONCOLOGY, [address] [id number] Consulting Physician Pulmonary Disease 04/20/22 Ivis Okeefe MD [address] [place] [address] MEDICAL ONCOLOGY, [address] [id number] Referring Physician Dermatology 08/30/22
--- NOTE | 2024-09-19 00:46 | ED_ITS ---
HPI - Fall General Chief Complaint: Fall Stated Complaint: glf with loc Time Seen by Provider: 09/19/24 00:42 History of Present Illness HPI Narrative: 84-year-old female with a past medical history including hypertension, lung cancer stage IV, diabetes, known AAA. Today she presents for mechanical fall while outside. She was walking her dog and slipped on some ice in the concrete driveway and fell backwards onto her head. Brief loss of consciousness for several seconds but was able to awaken and get up off the ground and into the house where she called for help. Does not take any blood thinner medications aside from a daily aspirin. No anticoagulants otherwise. Denies any vision changes, nausea, vomiting, neuropathy, weakness. Patient is complaining of a headache as well as some neck pain but denies any neurological complaints. No chest pain or shortness for breath. Was otherwise in her normal state of health. Related Data Home Medications ?Medication ?Instructions ?Recorded ?Confirmed ?Last Taken ?Type aspirin 81 mg tablet,delayed 81 mg PO HS 07/25/19 08/22/24 02/25/21 History release (Adult Low Dose Aspirin) albuterol sulfate 0.63 mg/3 mL 0.63 mg inhalation Q4-6H PRN 08/13/20 08/22/24 02/25/21 History solution for nebulization Dyspnea denosumab 60 mg/mL subcutaneous 60 mg subcut [id number] 12/12/22 08/22/24 Unknown History syringe (Prolia) omeprazole 20 mg capsule,delayed 20 mg PO DAILY 01/04/24 08/22/24 Unknown History release amlodipine 5 mg tablet 5 mg PO DAILY 08/22/24 08/22/24 Unknown History Allergies Allergy/AdvReac Type Severity Reaction Status Date / Time codeine Allergy Mild Dizziness Verified 08/22/24 11:43 sulfamethoxazole Allergy Mild Nausea and Verified 08/22/24 11:43 Vomiting clopidogrel Allergy Unknown Rash Verified 08/22/24 11:43 tiotropium Allergy Unknown Hives / Verified 08/22/24 11:43 Red Face fluticasone (From Advair Allergy Hives Verified 08/22/24 11:43 Diskus) salmeterol (From Advair Allergy Hives Verified 08/22/24 11:43 Diskus) aspartame AdvReac Mild HEADACHE Verified 08/22/24 11:43 Review of Systems Review of Systems: As reviewed above in [facility] Past Medical History Medical History COPD (chronic obstructive pulmonary disease) Herpes zoster Bloating Adenomatous colon polyp Epigastric pain Abdominal pain AAA (abdominal aortic aneurysm) Anxiety Depression Gout Arthritis UTI (urinary tract infection) Cataracts, bilateral Osteoporosis Lung cancer stage 4 Atherosclerotic heart disease of [place] coronary artery with angina pectoris Essential (primary) hypertension Gastro-esophageal reflux disease without esophagitis Hypothyroidism, unspecified (04/05/19) Overweight (09/15/15) Pure hypercholesterolemia Type 2 diabetes mellitus without complication, without long-term current use of insulin Vitamin D deficiency, unspecified (04/05/19) Surgical History Surgical History Hx of thyroidectomy Hx of cardiac catheterization Hx of CABG 2019 Status post aortic coarctation stent placement History of hysterectomy Family History Family History Father Patient's father is Family history of malignant neoplasm Mother Family history of tuberculosis Patient's mother is Sibling Patient's brother is in good health Other Family history of cardiovascular disease Malignant neoplasm of prostate Social History Social History Smoking packs per day: 1 Smoking cigarettes per day: 20.0 Years smoked: 40 Smoking pack-years: 40.00 Smoking status: Former smoker Tobacco type: cigarettes Second hand tobacco smoke exposure: No Smoking end date: 02/04/19 Alcohol intake: current Alcohol use details: special occasions, a sip Substance use: never Substance use type: does not use Do You Feel Safe in your Home?: Yes Lack of Transportation: No Lack of Food: Never True Current Housing: I Have Housing Concerned About Future Housing: No Difficulty Paying Gas/Electric Bills: No Difficulty Paying for Meds: No Currently Unemployed: No Education: Grade School Difficulty w/ Childcare or Family Care: No Living arrangements: alone Occupation/Education: retired Gender identity (if verbalized by the patient): Female Spiritual care concerns: No Agree to blood products: Yes Exam Narrative: GENERAL: [Well-appearing, well-nourished, and in no acute distress.] HEAD: Normocephalic but there is a occipital hematoma forming without any open wound or bleeding. No palpable skull defect. EYES: [PERRLA and EOMI.] ENT: Nares clear, no rhinorrhea or epistaxis. Mucous membranes moist. NECK: Supple. No restricted range of motion, paraspinal tenderness to the cervical region. CHEST: [Clear to auscultation. No respiratory distress.] HEART: [Regular rate and rhythm]. No murmur heard. [Normal peripheral pulses.] ABDOMEN: [Soft, nondistended], [nontender], [No rigidity or guarding] EXTREMITIES: Normal range of motion. [No edema.] SKIN: Warm, dry, no rash. NEURO: [No focal deficits]. Alert and oriented [x3.] PSYCH: [Normal mood and affect.] Course Vital Signs Vital signs: Vital Signs Temperature 36.8 C 09/19/24 00:19 Pulse Rate 100 09/19/24 00:19 Respiratory Rate 15 09/19/24 00:19 Blood Pressure 134/67 09/19/24 00:19 Pulse Oximetry 100 09/19/24 00:19 Temperature 36.8 C 09/19/24 00:19 Pulse Rate 87 09/19/24 01:08 Respiratory Rate 17 09/19/24 01:08 Blood Pressure 129/99 H 09/19/24 01:08 Pulse Oximetry 98 09/19/24 01:08 MDM - Fall MDM Narrative Medical decision making narrative: 84-year-old female presenting for mechanical ground level fall. Occurred 1 hour prior to arrival. Patient was walking her dog and slipped on ice in her driveway and fell backwards. Did lose consciousness briefly but woke up several seconds later. No blood thinner use aside from daily aspirin. Has a occipital hematoma but no overlying skin changes otherwise or any bleeding. Complaining of occipital headache and neck pain. CT of the head and cervical spine was ordered. Patient states she has a history of lung cancer and requested a chest x-ray as well. Patient denies any chest pain or shortness of breath. Patient was provided Tylenol for analgesia. X-rays were independently reviewed and also interpreted by the night radiologist. CT of the head shows no acute intracranial findings, CT of the cervical spine shows no fractures or subluxations, no soft tissue swelling. Chest x-ray shows no acute findings. Patient remained hemodynamically stable here and felt better after small dose of Tylenol. She is safe and stable for discharge home at this time with return precautions. Medical Records Attestation: I reviewed the patient's medical records. Lab Data Attestation: I reviewed the patient's lab results. Imaging Data Attestation: I personally reviewed and interpreted this imaging study as follows: My impression: No acute pneumonia, consolidation or pneumothorax. No acute intracranial hemorrhage on the head CT, no fracture dislocation of the cervical spinal bones. Discharge Plan Discharge Clinical Impression: CHI (closed head injury), Hematoma of occipital region of scalp Patient Disposition: Home, Self-Care Condition: Stable Instructions: Antibiotic Form, Concussion (ED), Head Injury (ED) Additional Instructions: Follow-up with your regular doctor. Your imaging studies showed no fractures, skull injury, brain bleed or any other injuries. Chest x-ray with any concerns. Take Tylenol and other pain medications at home for any residual aches or pains. Patient Language: Estonian Prescriptions: No Action Tagrisso 80 mg tablet 80 mg PO DAILY Qty: 30 0RF omeprazole 20 mg capsule,delayed release(DR/EC) 20 mg PO DAILY estradiol 0.01 % (0.1 mg/gram) cream 1 g vaginal 3XW Qty: 42.5 1RF diclofenac sodium [Arthritis Pain (diclofenac)] 1 % gel 4 g topical QID Qty: 100 1RF Rx Instructions: apply to single knee, ankle, foot; for foot includes sole/toes/top of foot albuterol sulfate 0.63 mg/3 mL solution for nebulization 0.63 mg inhalation Q4-6H PRN (Reason: Dyspnea) (DME) blood-glucose meter [OneTouch Verio Meter] Misc See Rx Instructions .Route Qty: 1 0RF Rx Instructions: As directed Prolia 60 mg/mL syringe 60 mg subcut [id number] Patient Comments: Last injection 11/10/2022 (DME) OneTouch Verio test strips Strip See Rx Instructions .ROUTE .MEDSUPPLY Qty: 200 1RF Rx Instructions: use to check blood sugar 2 times daily amlodipine 5 mg tablet 5 mg PO DAILY aspirin [Adult Low Dose Aspirin] 81 mg tablet,delayed release (DR/EC) 81 mg PO HS (DME) lancets [BD Ultra Fine Lancets] 33 gauge misc See Rx Instructions .ROUTE .MEDSUPPLY Qty: 200 1RF Rx Instructions: use to test blood sugar 2 times daily (DME) lancets 33 gauge misc See Rx Instructions .Route Qty: 100 1RF Rx Instructions: check blood sugar once daily candesartan [Atacand] 32 mg tablet 32 mg PO HS Qty: 90 1RF levothyroxine 75 mcg tablet 75 mcg PO QAM Qty: 90 1RF Follow-up/Referrals: Chandni Vang APRN [Primary Care Provider] - Time of Disposition: 02:53
--- OUTSIDE RECORDS SUMMARY | 2024-09-19 01:07 | XMS_ITS | Clinical Summary ---
Author [place] [facility] [place] [address] Address [address] [place] [address] Care Team Providers Care Pricing Strategist Name Role Phone Kaushik Gonzalez Unavailable Navjot Danielson MD Unavailable [phone] Rinku Hoffmann MD Unavailable [phone] Adryan Stevens MD Unavailable [phone] Romel Valerio MD PhD Unavailable Rachel Ramirez MD Unavailable [phone] Ivis Okeefe MD Unavailable [phone] Chandni Vang NP Primary Care Provider [phone] Allergies Active Allergy Reactions Criticality Noted Date Comments Fluticasone Propion-Salmeterol Other (See comments) Low 07/28/2020 Mouth sores Other Other (See comments) Low 03/21/2022 Skin breakout from paper mask Clopidogrel Hives Medium 08/16/2018 Tiotropium [place] Hives Medium 04/02/2019 Medications denosumab (PROLIA) 60 mg/mL syringe Inject under the skin every 6 (six) months Every 6 months. Last time oct 3 Active amLODIPine (NORVASC) 5 mg tablet Take 1 tablet (5 mg total) by mouth daily Active levothyroxine (SYNTHROID, LEVOTHROID) 75 mcg tablet Take 1 tablet (75 mcg total) by mouth stage hand before breakfast Active aspirin 81 mg enteric [...] (03/18/2022): Added automatically from request for surgery [id number] BMI 31.0-31.9,adult 11/29/2021 Consolidation of left upper lobe of lung (CMS/HC C) 09/01/2021 Overview (09/01/2021): Added automatically from request for surgery [id number] Overweight 07/05/2021 Cigarette nicotine dependence in remission [...] Department Care Team Description 09/02/2024 1:30 PM CONSUMER LOAN PROCESSOR Office Visit [facility] Pulmonology [address] [place] [address] Rachel Ramirez MD Non-small cell cancer of left lung (HCC) (Primary Dx); Chronic cough; Mixed simple and mucopurulent chronic bronchitis (HCC); Hyperinflation of lungs; Cigarette nicotine dependence in remission; S/P CABG x 2; BMI 31.0-31.9,adult; Nocturnal hypoxemia 08/23/2024 Telephone [facility] [facility] [facility] [place] [address] Danica Ramirez RN 08/20/2024 2:30 PM CONSUMER LOAN PROCESSOR Office Visit [facility] [address] [place] [address] Romel Valerio MD PhD Malignant neoplasm of overlapping sites of left lung (HCC) (Primary Dx) 08/20/2024 2:15 PM CONSUMER LOAN PROCESSOR Clinical Support [facility] [address] [place] [address] Malignant neoplasm of overlapping sites of left lung (HCC) 08/06/2024 2:11 PM CONSUMER LOAN PROCESSOR - 08/06/2024 11:59 PM CONSUMER LOAN PROCESSOR Hospital Encounter [facility] [address] [place], [place] [id number] Malignant neoplasm of overlapping sites of left [...] (chronic obstructive pu lmonary disease) ([facility]) Shingles 11/2020 has had on and [...] pad Abdominal aortic aneurysm (AAA) ([facility]) seen on angiogram, primary monitoring Presence of dental bridge perman ent Dental crown present Non-small cell cancer of lef t lung (HCC) 11/08/2018 radiation last 2019 PVD (peripheral vascular dis ease) ([facility]) Hypothyroidism Anxiety Depression Muscle pain legs [...] on file Legal Sex Female 4:07 AM CONSUMER LOAN PROCESSOR Gender Identity Not on file Sexual Orientation Not on file Obstetrics History Last Filed Vital Signs Vital Sign Reading Time Taken Comments Blood Pressure 142/68 09/02/2024 1:10 PM CONSUMER LOAN PROCESSOR Pulse 75 09/02/2024 1:10 PM CONSUMER LOAN PROCESSOR Temperature 36.6 C (97.8 F) 08/20/2024 3:00 PM CONSUMER LOAN PROCESSOR Respiratory Rate 18 08/20/2024 3:00 PM CONSUMER LOAN PROCESSOR Oxygen Saturation 97% 09/02/2024 1:10 PM CONSUMER LOAN PROCESSOR Inhaled Oxygen Concentration - - Weight 65.3 kg (144 lb) 09/02/2024 1:10 PM CONSUMER LOAN PROCESSOR Height 144.8 cm (4' 9 ) 05/02/2024 [...] (#1) 2024 Medical Devices Implanted Type Area Wind Turbine Technician Device Identifier Shelf Expiration Date Model / Serial / Lot Cardiac Stent Coronary Artery [employer] Power Port 8fr [id number] - [id number] Implanted:Qty: 1 on 06/03/2022 at [facility] [employer] 02/06/2027 [id number] / / [id number] Procedures Procedure Name Priority Date/Time Associated Diagnosis Comments EGFR Routine 08/20/2024 2:02 PM CONSUMER LOAN PROCESSOR Malignant neoplasm of overlapping sites of left lung (HCC) DIFFERENTIAL AUTO Routine 08/20/2024 2:0 2 PM CONSUMER LOAN PROCESSOR Malignant neoplasm of overlapping sites of left lung (HCC) CBC WITH AUTO DIFFERENTIAL Routine 08/20/2024 2:02 PM CONSUMER LOAN PROCESSOR Malignant neoplasm of overlapping sites of left lung (HCC) COMPREHENSIVE METABOLIC PANEL Routine 08/20/2024 2:02 PM CONSUMER LOAN PROCESSOR Malignant neoplasm of overlapping sites of left lung (HCC) CT CHEST ABDOMEN PELVIS W CONTRAST Schedule Routine, Read Routine (OP Routine) 08/06/2024 2:25 PM CONSUMER LOAN PROCESSOR Malignant neoplasm of overlapping sites of left lung (HCC) POCT CREATININE FOR CONTRAST EVALUATION Routine 08/06/2024 2:20 PM CONSUMER LOAN PROCESSOR from Last 3 Months Results * (ABNORMAL) eGFR (08/20/2024 2:02 PM CONSUMER LOAN PROCESSOR) Pathologist [facility] eGFR 37(L) >=60 mL/min/1. 73 m2 Comment: [...] was last reviewed 2021. Testing performed by: [facility], [address] [place] [address]., [address] Blood 08/20/2024 2:02 PM CONSUMER LOAN PROCESSOR 08/20/2024 2:08 PM CONSUMER LOAN PROCESSOR us Romel Valerio MD PhD LAB BLOOD ORDERABLES Final Result [facility] [address] [facility] [facility] [place] [address] * Differential, auto (08/20/2024 2:02 PM CONSUMER LOAN PROCESSOR) Neutrophil abs 3.0 1.5 - 6.5 K/cumm Comment:Testing performed by : [address] [address] Imm gran abs 0.0 0.0 - 0.1 K/cumm [facility] Comment:Testing performed by : [address], [place]., [address] Lymphocyte abs 1.3 0.8 - 3.3 K/cumm [facility] Comment:Testing performed by : [address], [place]., [address] Monocyte abs 0.6 0.2 - 0.8 K/cumm [facility] Comment:Testing performed by : [address] [address] Eosinophil abs 0.1 0.0 - 0.5 K/cumm [facility] Comment:Testing performed by : [address] [address] Basophil abs 0.0 0.0 - 0.1 K/cumm [facility] Comment:Testing performed by : [address] [address] Neutrophil pct 58.9 % [facility] Comment: Interpretive Data Percent cell count reference ranges are not reported, since discordance with absolute values may lead to misinterpretation of CBC data. Current Interpretive Data was last revised on 2017. Testing performed by: [address] [address] Imm gran pct 0.2 % [facility] Comment: Interpretive Data Percent cell count reference ranges are not reported, since discordance with absolute values may lead to misinterpretation of CBC data. Current Interpretive Data was last revised on 2017. Testing performed by: [address] [address] Lymphocyte pct 25.7 % [facility] Comment: Interpretive Data Percent cell count reference ranges are not reported, since discordance with absolute values may lead to misinterpretation of CBC data. Current Interpretive Data was last revised on 2017. Testing performed by: [address] [address] Monocyte pct 12.5 % [facility] Comment: Interpretive Data Percent cell count reference ranges are not reported, since discordance with absolute values may lead to misinterpretation of CBC data. Current Interpretive Data was last revised on 2017. Testing performed by: [address] [address] Eosinophil pct 2.3 % [facility] Comment: Interpretive Data Percent cell count reference ranges are not reported, since discordance with absolute values may lead to misinterpretation of CBC data. Current Interpretive Data was last revised on 2017. Testing performed by: [address] [address] Basophil pct 0.4 % [facility] Comment: Interpretive Data Percent cell count reference ranges are not reported, since discordance with absolute values may lead to misinterpretation of CBC data. Current Interpretive Data was last revised on 2017. Testing performed by: [address] [address] Blood 08/20/2024 2:02 PM CONSUMER LOAN PROCESSOR 08/20/2024 2:08 PM CONSUMER LOAN PROCESSOR us Romel Valerio MD PhD LAB BLOOD ORDERABLES Final Result [facility] [address] [facility] Department of Laboratories [place], [place] [id number] * (ABNORMAL) CBC with auto differential (08/20/2024 2:02 PM CONSUMER LOAN PROCESSOR) Pathologist [facility] WBC 5.1 3.8 - 9.9 K/cumm Comment:Testing performed by : [address] [address] Hgb 10.9(L) 11.9 - 15.5 g/dL [facility] Comment:Testing performed by : [address] [address] Hct 34.0(L) 35.6 - 45.5 % [facility] Comment:Testing performed by : [address] [address] Plt 221 150 - 400 K/cumm [facility] Comment:Testing performed by : [address] [place]., [address] MPV 9.1 9.1 - 12.3 fL [facility] Comment:Testing performed by : [address] [address] RBC 4.04 3.90 - 5.20 M/cumm [facility] Comment:Testing performed by : [address] [address] MCV 84.2 81.3 - 96.4 fL [facility] Comment:Testing performed by : [address] [address] MCH 27.0(L) 27.1 - 33.3 pg [facility] Comment:Testing performed by : [address] [address] MCHC 32.1(L) 32.3 - 35.7 g/dL [facility] Comment:Testing performed by : [address] [address] RDW CV 15.9(H) 11.1 - 14.9 % [facility] Comment:Testing performed by : [address] [address] RDW SD 49.1(H) 35.7 - 48.1 fL [facility] Comment:Testing performed by : [address] [address] NRBC abs 0.00 0.00 - 0.01 K/cumm [facility] Comment:Testing performed by : [address], [address] Blood 08/20/2024 2:02 PM CONSUMER LOAN PROCESSOR 08/20/2024 2:08 PM CONSUMER LOAN PROCESSOR us Romel Valerio MD PhD LAB BLOOD ORDERABLES Final Result [facility] [address] [facility] Department of Laboratories [place], [place] [id number] * (ABNORMAL) Comprehensive metabolic panel (08/20/2024 2:02 PM CONSUMER LOAN PROCESSOR) Sodium 137 135 - 145 mmol/L Comment:Testing performed by : [address] [address] Potassium, pl 4.0 3.3 - 4.9 mmol/L [facility] Comment:Testing performed by : [address] [address] Chloride 100 97 - 110 mmol/L [facility] Comment:Testing performed by : [address], [place]., [address] CO2 24 22 - 32 mmol/L [facility] Comment:Testing performed by : [address], [place]., [address] Anion gap 13 2 - 15 mmol/L [facility] Comment:Testing performed by : [address], [place]., [address] BUN 24 6 - 25 mg/dL [facility] Comment:Testing performed by : [address], [place]., [address] Creatinine 1.40(H) 0.60 - 1.10 mg/dL [facility] Comment:Testing performed by : [address], [place]., [address] Glucose 107 70 - 199 mg/dL [facility] Comment: Interpretive Data Fasting glucose >/= 126 [...] was last revised 2022. Testing performed by: [address] [address] Calcium 9.1 8.5 - 10.3 mg/dL [facility] Comment:Testing performed by : [address], [place]., [address] Bilirubin, total 0.2 0.1 - 1.2 mg/dL [facility] Comment:Testing performed by : [address] [address] Protein, pl 7.3 6.5 - 8.5 g/dL [facility] Comment:Testing performed by : [address] [address] Albumin 4.1 3.5 - 5.0 g/dL [facility] Comment:Testing performed by : [address] [address] Alk phos 57 40 - 130 Units/L [facility] Comment:Testing performed by : [address] [address] ALT 15 7 - 45 Units/L [facility] Comment:Testing performed by : [address] [address] AST 27 10 - 45 Units/L [facility] Comment:Testing performed by : [address] [address] Blood 08/20/2024 2:02 PM CONSUMER LOAN PROCESSOR 08/20/2024 2:08 PM CONSUMER LOAN PROCESSOR us Romel Valerio MD PhD LAB BLOOD ORDERABLES Final Result [place] [id number] [facility] [place] [address] * CT chest abdomen pelvis with contrast (08/06/2024 2:25 PM CONSUMER LOAN PROCESSOR) Anatomical Region Laterality Modality Body N/A Computed Tomogra phy 08/12/2024 8:06 AM CONSUMER LOAN PROCESSOR Narrative 08/12/2024 8:23 AM CONSUMER LOAN PROCESSOR EXAM DESCRIPTION: CT CHEST ABDOMEN PELVIS W [...] Dennys Armstrong M.D. CH: DAMON Report ID: [id number] Reading Location: [id number] Procedure Note Dennys Armstrong Jr., MD - [...] Dennys Armstrong M.D. CH: DAMON Report ID: [id number] Reading Location: [id number] us Romel Valerio MD PhD IMG CT PROCEDURES Fin al Result * (ABNORMAL) POCT creatinine for contrast evaluation (08/06/2024 2:20 PM CONSUMER LOAN PROCESSOR) Creatinine POC 1.20(H) 0.60 - 1.10 mg/dL Comment:Testing performed by : [facility], [address] [place] [address]., [address] Blood 08/06/2024 2:20 PM CONSUMER LOAN PROCESSOR 08/06/2024 2:20 PM CONSUMER LOAN PROCESSOR Romel Valerio MD PhD POINT OF CARE TEST OR DERABLES Final Result [facility] [address] [facility] Department of Laboratories [place], [place] [id number] from Last 3 Months Insurance MEDICARE FOR LIFE MEDICARE [place] [address] FOR LIFE Advance Directives For more information, please contact: [phone] Documents on File Type Date Recorded Patient Check And Transfer Beader Expl anation ADVANCE DIRECTIVE 09/30/2018 12:00 AM JAY JAY R OF [employer] * Full Code (Latest Code Status on File) Date Activated Date Inactivated Comments 06/03/2022 8:52 AM 06/04/2022 5:14 AM Care Teams Pricing Strategist Relationship Specialty Start Date End Date Chandni Vang NP [address] [place] [id number] PCP - General Nurse Practitioner 08/22/23 Kaushik Gonzalez DO Referring Physician Internal Medicine 08/09/18 Navjot Danielson MD Cardiothoracic Surgery 08/21/18 Rinku Hoffmann MD Radiation Oncologist Radiation Oncology 07/28/21 Adryan Stevens MD Consulting Physician Cardiovascular Disease 09/02/21 Romel Valerio MD PhD [address] [place] [address] MEDICAL ONCOLOGY, [address] [id number] Consulting Physician Medical Oncology 04/04/22 Rachel Ramirez MD [address] [place] [address] MEDICAL ONCOLOGY, [address] [id number] Consulting Physician Pulmonary Disease 04/20/22 Ivis Okeefe MD [address] [place] [address] MEDICAL ONCOLOGY, [address] [id number] Referring Physician Dermatology 08/30/22
--- OUTSIDE RECORDS SUMMARY | 2024-09-19 01:07 | XMS_ITS | Clinical Summary ---
Author Organization [facility] Address [address] [place] [id number] Phone Care Team Providers Care Security Tech Name Role Phone Unavailable Primary Care Provider [...] Diagnosed Date Atherosclerotic heart diseas e of [place] coronary artery without angina pectoris 05/15/2016 Essential [...] Comments Blood Pressure 148/82 10/05/2016 12:01 AM SAT MATH TUTOR Sitting, Right Pulse - - Temperature 36.8 C (98.3 F) 10/05/2016 12:01 AM SAT MATH TUTOR Respiratory Rate - - Oxygen Saturation - - Inhaled Oxygen Concentration - - Weight 63.5 kg (140 lb) 10/05/2016 12:0 1 AM SAT MATH TUTOR Height 144.8 cm (4' 9 ) 10/05/2016 12:0 1 AM SAT MATH TUTOR Body Mass Index 30.3 10/05/2016 12:01 AM SAT MATH TUTOR Plan of Treatment Not on file
--- OUTSIDE RECORDS SUMMARY | 2024-09-19 01:07 | XMS_ITS ---
Author Organization [facility] [address] Address [address] [place] [address] Care Team Providers Care Didactic Program In Dietetics Director Name Role Phone Carlos Kaushik DE GUZMAN Unavailable Navjot Danielson MD Unavailable [phone] Rinku Hoffmann MD Unavailable [phone] Adryan Stevens MD Unavailable [phone] Romle Valerio MD PhD Unavailable Rachel Ramirez MD Unavailable Ivis Okeefe MD Unavailable [phone] Chandni Vang NP Primary Care Provider [phone] Active Problems Problem Noted Date Diagnosed Date Nocturnal hypoxemia 10/30/2023 Hyperlipemia 09/15/2023 Disease of cardiovascular system 09/15/2023 Sleep disorder 05/25/2023 Persons encountering health services in other specified circumstances 04/19/2022 Mass of upper lobe of left lung 03/18/2022 Overview (03/18/2022): Added automatically from request for surgery [id number] BMI 31.0-31.9,adult 11/29/2021 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 Treatments may have been administered in another [...]
--- OUTSIDE RECORDS SUMMARY | 2024-09-19 01:07 | XMS_ITS | Encounter Summary ---
Author Organization [facility] Facility Care Team Providers Care Interface Designer Name Role Phone Kaushik Gonzalez DO Primary Care Provider [phone] Kaushik Gonzalez DO Primary Care Provider [phone] Kaushik Gonzalez DO Unavailable Kaushik Gonzalez DO Unavailable Navjot Danielson MD Unavailable [phone] Checo Hawley MD Unavailable [phone] Rinku Hoffmann MD Unavailable [phone] Adryan Stevens MD Unavailable [phone] Romel Valerio MD PhD Unavailable [phone] Rachel Ramirez MD Unavailable [phone] Ivis Okeefe MD Unavailable [phone] Chandni Vang Primary Care Provider Unavailabl e Kaushik Gonzalez DO Primary Care Provider [phone] Chandni Vang NP Primary Care Provider [phone] Encounter Details Date Type Department Care Team (Latest Contact Info) Description 09/06/2018 Orders Only [facility] CLINCONV ProviderNahum MD [address] [place] [address] Social History Tobacco Use Types Packs/Day Years Used Date Smoking Tobacco: Every Day Smokeless Tobacco: Never Alcohol Use Standard Drinks/Week Comments Yes 0 (1 standard drink = 0.6 oz pur e alcohol) Comments Unknown Sex and Gender Information Value Date Recorded Sex Assigned at Not on file Legal Sex Female 4:07 AM SURGICAL INSTRUMENT TECHNICIAN Gender Identity Not on file Sexual Orientation Not on file documented as of this encounter Plan of Treatment Not on file documented as of this encounter Procedures Procedure Name Priority Date/Time Associated Diagnosis Comments PROCEDURE - RESULT 09/10/2018 12 :00 AM SURGICAL INSTRUMENT TECHNICIAN documented in this encounter Results * PROCEDURE - RESULT (09/10/2018 12:00 AM SURGICAL INSTRUMENT TECHNICIAN) Narrative 09/10/2018 12:00 AM SURGICAL INSTRUMENT TECHNICIAN Ordered by an unspecified provider. us Historical Provider Final Res ult documented in this encounter Visit Diagnoses Not on filedocumented in this encounter Additional Health Concerns Infection Onset Date Last Indicated Resolved Time COVID: Suspected 09/06/2021 09/06/2021 09/06/2021 10:47 PM SURGICAL INSTRUMENT TECHNICIAN documented as of this encounter Care Teams Interface Designer Relationship Specialty Start Date End Date Kaushik Gonzalez DO PCP - General Internal Medicine 08/09/18 09/20/18 Kaushik Gonzalez DO PCP - General 09/21/18 01/23/23 Chandni Vang PCP - General Family Medicine 01/24/23 02/27/23 Kaushik Gonzalez DO PCP - General Internal Medicine 02/28/23 08/21/23 Chandni Vang NP [address] [place] [address] PCP - General Nurse Practitioner 08/22/23 Kaushik Gonzalez DO Internal Medicine 09/21/18 02/27/23 Kaushik Gonzalez DO Referring Physician Internal Medicine 08/09/18 Navjot Danielson MD Cardiothoracic Surgery 08/21/18 Checo Hawley MD Medical Oncologist/Hematologis t Hematology and Oncology 08/31/18 04/03/22 Rinku Hoffmann MD Radiation Oncologist Radiation Oncology 07/28/21 Adryan Stevens MD Consulting Physician Cardiovascular Disease 09/02/21 Romel Valerio MD PhD [address] [place] [address] MEDICAL ONCOLOGY, [address] [phone] Consulting Physician Medical Oncology 04/04/22 Rachel Ramirez MD [address] [place] [address] MEDICAL ONCOLOGY, [address] [id number] Consulting Physician Pulmonary Disease 04/20/22 Ivis Okeefe MD [address] [place] [address] MEDICAL ONCOLOGY, [address] [id number] Referring Physician Dermatology 08/30/22 documented as of this encounter
--- OUTSIDE RECORDS SUMMARY | 2024-09-19 01:07 | XMS_ITS | Referral Summary ---
Author Organization [facility] [address] Address [address] [place] [address] Care Team Providers Care Account Consultant Name Role Phone Kaushik Gonzalez Unavailable Navjot Danielson MD Unavailable [phone] Rinku Hoffmann MD Unavailable [phone] Adryan Stevens MD Unavailable [phone] Romel Valerio MD PhD Unavailable Rachel Ramirez MD Unavailable [phone] Ivis Okeefe MD Unavailable [phone] Chandni Vang DIVISION CHAIR Primary Care Provider [phone] Encounters Date Type Department Care Team Description 09/02/2024 1:30 PM ACTIVE DIRECTORY ENGINEER Office Visit [facility] Pulmonology [address] [facility] [address] [place] [address] Rachel Ramirez MD Non-small cell cancer of left lung (HCC) (Primary Dx); Chronic cough; Mixed simple and mucopurulent chronic bronchitis (HCC); Hyperinflation of lungs; Cigarette nicotine dependence in remission; S/P CABG x 2; BMI 31.0-31.9,adult; Nocturnal hypoxemia 08/23/2024 Telephone [facility] Oncology [address] [facility] [address] [place] [phone] Danica Ramirez RN 08/20/2024 2:15 PM ACTIVE DIRECTORY ENGINEER Clinical Support [facility] [address] [place] [address] Malignant neoplasm of overlapping sites of left lung (HCC) 08/20/2024 2:30 PM ACTIVE DIRECTORY ENGINEER Office Visit [facility] Oncology [address] [place] [address] [address] [place] [phone] Romel Valerio MD PhD Malignant neoplasm of overlapping sites of left lung (HCC) (Primary Dx) 08/06/2024 2:11 PM ACTIVE DIRECTORY ENGINEER - 08/06/2024 11:59 PM ACTIVE DIRECTORY ENGINEER Hospital Encounter [facility] [address] [place] [address] Malignant neoplasm of overlapping sites of left lung (HCC) Discharge Disposition: Discharge to home or self care from Last 3 Months Allergies Active Allergy Reactions Criticality Noted Date Comments Fluticasone Propion-Salmeterol Other (See comments) Low 07/28/2020 Mouth sores Other Other (See comments) Low 03/21/2022 Skin breakout from paper mask Clopidogrel Hives Medium 08/16/2018 Tiotropium [place] Hives Medium 04/02/2019 Medications denosumab (PROLIA) 60 mg/mL syringe Inject under the skin every 6 (six) months Every 6 months. Last time oct 3 Active amLODIPine (NORVASC) 5 mg tablet Take 1 tablet (5 mg total) by mouth daily Active levothyroxine (SYNTHROID, LEVOTHROID) 75 mcg tablet Take 1 tablet (75 mcg total) by mouth film sorter before breakfast Active aspirin 81 mg enteric [...] (03/18/2022): Added automatically from request for surgery [id number] BMI 31.0-31.9,adult 11/29/2021 Consolidation of left upper lobe of lung (CMS/HC C) 09/01/2021 Overview (09/01/2021): Added automatically from request for surgery [id number] Overweight 07/05/2021 Cigarette nicotine dependence in remission [...] on file Legal Sex Female 4:07 AM ACTIVE DIRECTORY ENGINEER Gender Identity Not on file Sexual Orientation Not on file Last Filed Vital Signs Vital Sign Reading Time Taken Comments Blood Pressure 142/68 09/02/2024 1:10 PM ACTIVE DIRECTORY ENGINEER Pulse 75 09/02/2024 1:10 PM ACTIVE DIRECTORY ENGINEER Temperature 36.6 C (97.8 F) 08/20/2024 3:00 PM ACTIVE DIRECTORY ENGINEER Respiratory Rate 18 08/20/2024 3:00 PM ACTIVE DIRECTORY ENGINEER Oxygen Saturation 97% 09/02/2024 1:10 PM ACTIVE DIRECTORY ENGINEER Inhaled Oxygen Concentration - - Weight 65.3 kg (144 lb) 09/02/2024 1:10 PM ACTIVE DIRECTORY ENGINEER Height 144.8 cm (4' 9 ) 05/02/2024 2:18 PM CDT Body Mass Index 31.16 05/02/2024 2:18 PM CDT Plan of Treatment Not on file Medical Devices Implanted Type Area Behavioral Health Therapist Device Identifier Shelf Expiration Date Model / Serial / Lot Cardiac Stent Coronary Artery [employer] X[employer]a Power Port 8fr [id number] - [id number] Implanted:Qty: 1 on 06/03/2022 at [facility] [employer] 02/06/2027 [id number] / / [id number] Procedures Procedure Name Priority Date/Time Associated Diagnosis Comments EGFR Routine 08/20/2024 2:02 PM ACTIVE DIRECTORY ENGINEER Malignant neoplasm of overlapping sites of left lung (HCC) DIFFERENTIAL AUTO Routine 08/20/2024 2:0 2 PM ACTIVE DIRECTORY ENGINEER Malignant neoplasm of overlapping sites of left lung (HCC) CBC WITH AUTO DIFFERENTIAL Routine 08/20/2024 2:02 PM ACTIVE DIRECTORY ENGINEER Malignant neoplasm of overlapping sites of left lung (HCC) COMPREHENSIVE METABOLIC PANEL Routine 08/20/2024 2:02 PM ACTIVE DIRECTORY ENGINEER Malignant neoplasm of overlapping sites of left lung (HCC) CT CHEST ABDOMEN PELVIS W CONTRAST Schedule Routine, Read Routine (OP Routine) 08/06/2024 2:25 PM ACTIVE DIRECTORY ENGINEER Malignant neoplasm of overlapping sites of left lung (HCC) POCT CREATININE FOR CONTRAST EVALUATION Routine 08/06/2024 2:20 PM ACTIVE DIRECTORY ENGINEER from Last 3 Months Results * (ABNORMAL) eGFR (08/20/2024 2:02 PM ACTIVE DIRECTORY ENGINEER) Pathologist [facility] eGFR 37(L) >=60 mL/min/1. 73 m2 Comment: [...] was last reviewed 2021. Testing performed by: [address] [address] Blood 08/20/2024 2:02 PM ACTIVE DIRECTORY ENGINEER 08/20/2024 2:08 PM ACTIVE DIRECTORY ENGINEER us Romel Valerio MD PhD LAB BLOOD ORDERABLES Final Result [facility] [address] [facility] Department [place] [address] * Differential, auto (08/20/2024 2:02 PM ACTIVE DIRECTORY ENGINEER) Pathologist [facility] Neutrophil abs 3.0 1.5 - 6.5 K/cumm Comment:Testing performed by : [address] [address] Imm gran abs 0.0 0.0 - 0.1 K/cumm [facility] WALKER Comment:Testing performed by : [address] [place] [address] Lymphocyte abs 1.3 0.8 - 3.3 K/cumm CERNER Comment:Testing performed by : [address] [address] Monocyte abs 0.6 0.2 - 0.8 K/cumm CERROB Comment:Testing performed by : [address] [address] Eosinophil abs 0.1 0.0 - 0.5 K/cumm [facility] Comment:Testing performed by : [address] [address] Basophil abs 0.0 0.0 - 0.1 K/cumm ABDIEL Comment:Testing performed by : [address] [address] Neutrophil pct 58.9 % CERROB Comment: Interpretive Data Percent cell count reference ranges are not reported, since discordance with absolute values may lead to misinterpretation of CBC data. Current Interpretive Data was last revised on 2017. Testing performed by: [address] [address] Imm gran pct 0.2 % [facility] Comment: Interpretive Data Percent cell count reference ranges are not reported, since discordance with absolute values may lead to misinterpretation of CBC data. Current Interpretive Data was last revised on 2017. Testing performed by: [address] [address] Lymphocyte pct 25.7 % CERNER Comment: Interpretive Data Percent cell count reference ranges are not reported, since discordance with absolute values may lead to misinterpretation of CBC data. Current Interpretive Data was last revised on 2017. Testing performed by: [address] [address] Monocyte pct 12.5 % CERNER Comment: Interpretive Data Percent cell count reference ranges are not reported, since discordance with absolute values may lead to misinterpretation of CBC data. Current Interpretive Data was last revised on 2017. Testing performed by: [address] [address] Eosinophil pct 2.3 % CERNER Comment: Interpretive Data Percent cell count reference ranges are not reported, since discordance with absolute values may lead to misinterpretation of CBC data. Current Interpretive Data was last revised on 2017. Testing performed by: [address] [address] Basophil pct 0.4 % [facility] WALKER Comment: Interpretive Data Percent cell count reference ranges are not reported, since discordance with absolute values may lead to misinterpretation of CBC data. Current Interpretive Data was last revised on 2017. Testing performed by: [address] [address] Blood 08/20/2024 2:02 PM ACTIVE DIRECTORY ENGINEER 08/20/2024 2:08 PM ACTIVE DIRECTORY ENGINEER us Romel Valerio MD PhD LAB BLOOD ORDERABLES Final Result [facility] [facility] Department [place] [address] * (ABNORMAL) CBC with auto differential (08/20/2024 2:02 PM ACTIVE DIRECTORY ENGINEER) WBC 5.1 3.8 - 9.9 K/cumm Comment:Testing performed by : [address] [address] Hgb 10.9(L) 11.9 - 15.5 g/dL [facility]BD[facility]EL WALKER Comment:Testing performed by : [address] [address] Hct 34.0(L) 35.6 - 45.5 % [facility] WALKER Comment:Testing performed by : [address] [address] Plt 221 150 - 400 K/cumm [facility] WALKER Comment:Testing performed by : [address] [address] MPV 9.1 9.1 - 12.3 fL [facility] WALKER Comment:Testing performed by : [address] [address] RBC 4.04 3.90 - 5.20 M/cumm ABDIEL WALKER Comment:Testing performed by : [address] [address] MCV 84.2 81.3 - 96.4 fL [facility]BD[facility]EL WALKER Comment:Testing performed by : [address] [address] MCH 27.0(L) 27.1 - 33.3 pg ABDIEL WALKER Comment:Testing performed by : [address] [address] MCHC 32.1(L) 32.3 - 35.7 g/dL ABDIEL WALKER Comment:Testing performed by : [address] [address] RDW CV 15.9(H) 11.1 - 14.9 % ABDIEL WALKER Comment:Testing performed by : [address] [address] RDW SD 49.1(H) 35.7 - 48.1 fL [facility]BD[facility]EL WALKER Comment:Testing performed by : [address] [address] NRBC abs 0.00 0.00 - 0.01 K/cumm [facility] WALKER Comment:Testing performed by : [address] [address] Blood 08/20/2024 2:02 PM ACTIVE DIRECTORY ENGINEER 08/20/2024 2:08 PM ACTIVE DIRECTORY ENGINEER us Romel Valerio MD PhD LAB BLOOD ORDERABLES Final Result [facility] [address] [facility] Department of Laboratories [place], [place] [id number] * (ABNORMAL) Comprehensive metabolic panel (08/20/2024 2:02 PM ACTIVE DIRECTORY ENGINEER) Sodium 137 135 - 145 mmol/L Comment:Testing performed by : [address] [address] Potassium, pl 4.0 3.3 - 4.9 mmol/L ABDIEL WALKER Comment:Testing performed by : [address] [address] Chloride 100 97 - 110 mmol/L ABDIEL WALKER Comment:Testing performed by : [facility], [address] [place] [address]., [address] CO2 24 22 - 32 mmol/L ABDIEL Comment:Testing performed by : [address] [address] Anion gap 13 2 - 15 mmol/L ABDIEL Comment:Testing performed by : [address] [address] BUN 24 6 - 25 mg/dL ABDIEL Comment:Testing performed by : [address] [address] Creatinine 1.40(H) 0.60 - 1.10 mg/dL ABDIEL Comment:Testing performed by : [address] [address] Glucose 107 70 - 199 mg/dL ABDIEL [...] was last revised 2022. Testing performed by: [address] [address] Calcium 9.1 8.5 - 10.3 mg/dL ABDIEL Comment:Testing performed by : [address] [address] Bilirubin, total 0.2 0.1 - 1.2 mg/dL ABDIEL Comment:Testing performed by : [address] [address] Protein, pl 7.3 6.5 - 8.5 g/dL ABDIEL Comment:Testing performed by : [address] [address] Albumin 4.1 3.5 - 5.0 g/dL ABDIEL Comment:Testing performed by : [address] [address] Alk phos 57 40 - 130 Units/L ABDIEL Comment:Testing performed by : [address] [address] ALT 15 7 - 45 Units/L [facility]EL WALKER Comment:Testing performed by : [address] [address] AST 27 10 - 45 Units/L [facility]EL WALKER Comment:Testing performed by : [address] [address] Blood 08/20/2024 2:02 PM ACTIVE DIRECTORY ENGINEER 08/20/2024 2:08 PM ACTIVE DIRECTORY ENGINEER us Romel Valerio MD PhD LAB BLOOD ORDERABLES Final Result [facility] [address] [facility] Department [place] [address] * CT chest abdomen pelvis with contrast (08/06/2024 2:25 PM ACTIVE DIRECTORY ENGINEER) Anatomical Region Laterality Modality Body N/A Computed Tomogra phy 08/12/2024 8:06 AM ACTIVE DIRECTORY ENGINEER Narrative 08/12/2024 8:23 AM ACTIVE DIRECTORY ENGINEER EXAM DESCRIPTION: CT CHEST ABDOMEN PELVIS W [...] Dennys Armstrong M.D. CH: DAMON Report ID: [id number] Reading Location: [place] [address] Procedure Note Dennys Armstrong Jr., MD - [...] Dennys Armstrong M.D. CH: DAMON Report ID: [id number] Reading Location: [id number] us Romel Valerio MD PhD IMG CT PROCEDURES Fin al Result * (ABNORMAL) POCT creatinine for contrast evaluation (08/06/2024 2:20 PM ACTIVE DIRECTORY ENGINEER) Creatinine POC 1.20(H) 0.60 - 1.10 mg/dL Comment:Testing performed by : [facility], [address] [place] [address]., [address] Blood 08/06/2024 2:20 PM ACTIVE DIRECTORY ENGINEER 08/06/2024 2:20 PM ACTIVE DIRECTORY ENGINEER us Romel Valerio MD PhD POINT OF CARE TEST OR DERABLES Final Result [facility] [address] [facility] Department [place] [address] from Last 3 Months Insurance MEDICARE FOR LIFE MEDICARE FOR LIFE MEDICARE FOR LIFE Advance Directives For more information, please contact: [phone] Documents on File Type Date Recorded Patient Supervisor Pre Wave Expl anation ADVANCE DIRECTIVE 09/30/2018 12:00 AM JAY JAY R OF [employer]ICAL * Full Code (Latest Code Status on File) Date Activated Date Inactivated Comments 06/03/2022 8:52 AM 06/04/2022 5:14 AM Care Teams Account Consultant Relationship Specialty Start Date End Date Chandni Vang NP [address] [place] [address] PCP - General Nurse Practitioner 08/22/23 Kaushik Gonzalez DO Referring Physician Internal Medicine 08/09/18 Navjot Danielson MD Cardiothoracic Surgery 08/21/18 Rinku Hoffmann MD Radiation Oncologist Radiation Oncology 07/28/21 Adryan Stevens MD Consulting Physician Cardiovascular Disease 09/02/21 Romel Valerio MD PhD [address] [place] [address] MEDICAL ONCOLOGY, [address] [address] Consulting Physician Medical Oncology 04/04/22 Rachel Ramirez MD [address] [place] [address] MEDICAL ONCOLOGY, [address] [address] Consulting Physician Pulmonary Disease 04/20/22 Ivis Okeefe MD [address] [place] [address] MEDICAL ONCOLOGY, [address] [address] Referring Physician Dermatology 08/30/22
--- OUTSIDE RECORDS SUMMARY | 2024-09-19 01:07 | XMS_ITS | Encounter Summary ---
Author Organization [facility] Care Team Providers Care Hyperbaric Nurse Name Role Phone Kaushik Gonzalez DO Primary Care Provider [phone] Kaushik Gonzalez DO Primary Care Provider [phone] Kaushik Gonzalez DO Unavailable Kaushik Gonzalez DO Unavailable Navjot Danielson MD Unavailable [phone] Checo Hawley MD Unavailable [phone] Rinku Hoffmann MD Unavailable [phone] Adryan Stevens MD Unavailable [phone] Romel Valerio MD PhD Unavailable [phone] Rachel Ramirez MD Unavailable [phone] Ivsi Okeefe MD Unavailable [phone] Chandni Vang Primary Care Provider Unavailabl e Kaushik Gonzalez DO Primary Care Provider [phone] Chandni Vang NP Primary Care Provider [phone] Encounter Details Date Type Department Care Team (Latest Contact Info) Description 09/10/2018 Orders Only [facility] CLINCONV ProviderNahum MD [address] [place] [address] Social History Tobacco Use Types Packs/Day Years Used Date Smoking Tobacco: Every Day Smokeless Tobacco: Never Alcohol Use Standard Drinks/Week Comments Yes 0 (1 standard drink = 0.6 oz pur e alcohol) Comments Unknown Sex and Gender Information Value Date Recorded Sex Assigned at Not on file Legal Sex Female 4:07 AM PRO SHOP ATTENDANT Gender Identity Not on file Sexual Orientation Not on file documented as of this encounter Plan of Treatment Not on file documented as of this encounter Procedures Procedure Name Priority Date/Time Associated Diagnosis Comments PROCEDURE - RESULT 09/10/2018 12 :00 AM PRO SHOP ATTENDANT documented in this encounter Results * PROCEDURE - RESULT (09/10/2018 12:00 AM PRO SHOP ATTENDANT) Narrative 09/10/2018 12:00 AM PRO SHOP ATTENDANT Ordered by an unspecified provider. us Historical Provider Final Res ult documented in this encounter Visit Diagnoses Not on filedocumented in this encounter Additional Health Concerns Infection Onset Date Last Indicated Resolved Time COVID: Suspected 09/06/2021 09/06/2021 09/06/2021 10:47 PM PRO SHOP ATTENDANT documented as of this encounter Care Teams Hyperbaric Nurse Relationship Specialty Start Date End Date Kaushik Gonzalez DO PCP - General Internal Medicine 08/09/18 09/20/18 Kaushik Gonzalez DO PCP - General 09/21/18 01/23/23 Chandni Vang PCP - General Family Medicine 01/24/23 02/27/23 Kaushik Gonzalez DO PCP - General Internal Medicine 02/28/23 08/21/23 Chandni Vang NP [address] [place] [address] PCP - General Nurse Practitioner 08/22/23 Kaushik Gonzalez DO Internal Medicine 09/21/18 02/27/23 Kaushik Gonzalez DO Referring Physician Internal Medicine 08/09/18 Navjot Danielson MD Cardiothoracic Surgery 08/21/18 Checo Hawley MD Medical Oncologist/Hematologis t Hematology and Oncology 08/31/18 04/03/22 Rinku Hoffmann MD Radiation Oncologist Radiation Oncology 07/28/21 Adryan Stevens MD Consulting Physician Cardiovascular Disease 09/02/21 Romel Valerio MD PhD [address] [place] [address] MEDICAL ONCOLOGY, [address] [phone] Consulting Physician Medical Oncology 04/04/22 Rachel Ramirez MD [address] [place] [address] MEDICAL ONCOLOGY, [address] [phone] Consulting Physician Pulmonary Disease 04/20/22 Ivis Okeefe MD [address] [place] [address] MEDICAL ONCOLOGY, [address] [phone] Referring Physician Dermatology 08/30/22 documented as of this encounter
== END 2024-09-19 03:24 | disposition home or self-care (01) ==
PROVIDERS: Emergency Provider Student in an Organized Health Care Education/Training Program; PCP Nurse Practitioner Family
DX: S00.03XA Contusion of scalp, initial encounter (principal); C34.90 Malignant neoplasm of unspecified part of unspecified bronchus or lung; I10 Essential (primary) hypertension; I25.119 Atherosclerotic heart disease of native coronary artery with unspecified angina pectoris; I71.40 Abdominal aortic aneurysm, without rupture, unspecified; E11.9 Type 2 diabetes mellitus without complications; E55.9 Vitamin D deficiency, unspecified; E89.0 Postprocedural hypothyroidism; J44.9 Chronic obstructive pulmonary disease, unspecified; M10.9 Gout, unspecified; M19.90 Unspecified osteoarthritis, unspecified site; M81.0 Age-related osteoporosis without current pathological fracture; H26.9 Unspecified cataract; Z95.1 Presence of aortocoronary bypass graft; Z95.5 Presence of coronary angioplasty implant and graft; Z87.440 Personal history of urinary (tract) infections; Z86.0101 Personal history of adenomatous and serrated colon polyps; Z87.891 Personal history of nicotine dependence; Z90.710 Acquired absence of both cervix and uterus; Z79.82 Long term (current) use of aspirin; Z79.899 Other long term (current) drug therapy; M47.812 Spondylosis without myelopathy or radiculopathy, cervical region; I51.7 Cardiomegaly; Y93.K1 Activity, walking an animal; W00.0XXA Fall on same level due to ice and snow, initial encounter
CPT/HCPCS: 70450; 71045; 72125; 99284

== ENCOUNTER 2024-09-20 12:30 | Outpatient (RCR) | payer MEDICARE, OTHER, SELFPAY ==
--- NOTE | 2024-08-29 14:31 | OPREHPOC ---
Outpatient Therapy Plan of Care This is a Multidisciplinary Plan of Care that may contain components documented by all disciplines (PT, OT, and ST.) PT Problem 1 PT Problem #1 Knowledge Deficit PT Goal 1 Goal / Goal Update *indep with HEP Target Visit 8 PT Problem 2 PT Problem #2 Impaired Functional Mobility PT Goal 1 Goal / Goal Update * Mcneil balance/gait score of 50/56, to improve mobility and safety with gait Target Visit 8 PT Goal 2 Goal / Goal Update * 2 minute walking test distance of 275' Target Visit 8 PT Problem 3 PT Problem #3 Impaired Strength PT Goal 1 Goal / Goal Update * increase strength of R and L LE, to improve gait and balance, pt able to perform 20 reps of supine exercises Target Visit 8
--- NOTE | 2024-08-29 14:31 | PTOPEVAL1 ---
Assessment and note entered by Francoise Schuler, PT Evaluation Information Assessment Status Evaluation ICD-10 Condition Codes (PT) Abnormalities of gait and mobility R26.9,Dizziness and Giddiness R42 Other ICD-10 Condition Codes ( W19.XXXA falls PT) Onset about 1 year ago Subjective Information in the past 6 months have had 3 falls---ice, garage steps, outside in yard; just drop to ground; balance is not good, wobble when walk; have tried 4 different pairs of glasses and still have problems; have a cane, use sometimes symptoms: not dizzy or room spinning; just drop to ground, unsteady with walking Activity: live at home alone with her dog; have basement, have railing- do not go down very often; indep with all home and self care activities; does not have any help at home; drives; does not do any exercises for legs, but go all day and take care of house and dog; GOAL: get balance better and not fall Reported Pain Level Pain Score 7: Self Report Additional Pain Score Comments both legs are throbbing and hurt; legs are numb all the time Assessment PT Clinical Summary [place] has the diagnosis of decreased gait and balance, falls, dizziness. She reports having 3 falls in the past 6 months, due to just fall down She lives alone and takes care of herself and light home tasks indep. And uses a cane PRN. Her medical history includes: HTN and diabetes- which she monitors daily and not under control; COPD, bilateral knee pain, lung cancer meds to control, leg & back cramps; tenderness/neuropathy of both legs; reports of visual issues--have had glasses checked and changed; multiple meds for all of her medical issues. With the evaluation, she does not report any room spinning , but more reports of wobbly, off balance, walking problems; weakness of R and L LE; Mcneil balance score of 45/56; unable to perform single leg standing and small base of support activities; 2 minute walking test distance of 225' with SOB and fatigue; 5 rep sit/ stand time is WNL and without using her arms. Skilled PT services are indicated to increase LE strength, gait and balance skills, with education for HEP and assessment of assistive device--she may benefit from a wheeled walker for mobility. Will monitor for any vestibular and dizziness during sessions. Plan of Care Interventions Gait Training,Neuro Re-education,Patient/Caregiver Education,Therapeutic Activities,Therapeutic Exercise PT Services Indicated Yes Treatment Frequency and 1-2x/wk for 8 visits Duration These treatments will address the objective and functional deficits as defined above. The patient will be advanced safely and appropriately in order for the patient to progress towards his/her prior level of function. Additional exercises will be introduced and as well as a comprehensive home exercise program upon discharge, if needed, ?to ensure carryover of functional gains achieved in the clinic. This treatment plan has been reviewed and agreement upon by the patient.
--- NOTE | 2024-09-10 11:46 | PCPTNOTE ---
Pt canceled and did not give a reason.
--- NOTE | 2024-09-24 15:31 | PTOPDC ---
Assessment and note entered by Francoise Schuler, PT Assessment Status Discharge - Pt Not Present ICD-10 Condition Codes (PT) Abnormalities of gait and mobility R26.9,Dizziness and Giddiness R42 Other ICD-10 Condition Codes ( W19.XXXA falls PT) Onset about 1 year ago Subjective Information pt called on 09-23-24, stated she was doing OK and did not want any more therapy. Assessment PT Clinical Summary Mrs. Quinn has received 6 PT sessions. She called yesterday, stated she was doing well and did not want any more therapy. Discharge PT per pt request. The goals were not addressed. Plan of Care PT Services Indicated No
== END 2024-09-25 08:27 | disposition home or self-care (01) ==
LOC: ANHPT 12:30
PROVIDERS: PCP Nurse Practitioner Family; Visit Provider Nurse Practitioner Family
DX: R26.89 Other abnormalities of gait and mobility (principal); R42 Dizziness and giddiness
CPT/HCPCS: 97110; 97112; 97161; 97530

== ENCOUNTER 2024-12-10 13:51 | Outpatient (CLI) | payer MEDICARE, OTHER, SELFPAY ==
--- NOTE | ~2024-12-10 | XR_ITS ---
XR abdomen/kub 1V Ordering provider: Fracisco Redd MD History: . Kidney stone of lt stone, pain on left side . Comparison: None. FINDINGS: BOWEL: Nonobstructive bowel gas pattern. ORGANOMEGALY: None. SIGNIFICANT PATHOLOGIC CALCIFICATIONS: Highly suggestive bilateral kidney stones. OTHER: No free air is seen under the diaphragm. Atherosclerotic changes of the aorta. 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 Pubic symphysitis. IMPRESSION: NO ACUTE ABDOMINAL FINDINGS. Highly suggestive bilateral kidney stones. Noncontrast CT is better for evaluation. Reviewed, dictated and finalized at location A. IMPRESSION: NO ACUTE ABDOMINAL FINDINGS. Highly suggestive bilateral kidney stones. Noncontrast CT is better for evaluat ion.
--- OUTSIDE RECORDS SUMMARY | 2024-12-10 14:00 | XMS_ITS | Clinical Summary ---
Author Organization [facility] [place] [address] Address [address] [place] [address] Care Team Providers Care Epitaxial Reactor Technician Name Role Phone Kaushik Gonzalez DO Unavailable Navjot Danielson MD Unavailable [phone] Rinku Hoffmann MD Unavailable [phone] Adryan Stevens MD Unavailable [phone] Romel Valerio MD PhD Unavailable Rachel Ramirez MD Unavailable [phone] Ivis Okeefe MD Unavailable [phone] Chandni Vang MODULAR [employer] MEMBER Primary Care Provider [phone] Allergies Active Allergy Reactions Criticality Noted Date Comments Fluticasone Propion-Salmeterol Other (See comments) Low 07/28/2020 Mouth sores Other Other (See comments) Low 03/21/2022 Skin breakout from paper mask Clopidogrel Hives Medium 08/16/2018 Tiotropium [place] Hives Medium 04/02/2019 Medications denosumab (PROLIA) 60 mg/mL syringe Inject under the skin every 6 (six) months Every 6 months. 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 Active aspirin 81 mg enteric coated tablet Take 1 tablet (81 mg total) by mouth daily Active docusate sodium (COLACE) 100 mg capsuleIndicatio ns:constipation Take 1 capsule (100 mg total) by [...] 2.5 mg /3 mL (0.083 %) nebulizer solutionIndicati ons:Chronic obstructive pulmonary disease, unspecified COPD type (HCC) USE 1 VIAL IN NEBULIZER EVERY 6 HOURS - as needed for wheezing or shortness of breath 3 mL 11 08/29/19 25 Active diclofenac sodium (VOLTAREN) 1 % gel 06/17/20 24 Active osimertinib (Tagrisso) 80 mg tablet TAKE 1 TABLET DAILY 90 tablet 3 09/17/19 25 Active nitroglycerin (NITROSTAT) 0.4 mg SL tablet as needed 09/17/19 25 Active estradioL (ESTRACE) 0.01 % (0.1 mg/gram) vaginal cream USE 1 GRAM VAGINALLY 3 TIMES A WEEK 09/15/19 25 Active folic acid (FOLVITE) 1 mg tabletIndication s:Persons encountering health services in other specified circumstances,No n-small cell cancer of left lung (HCC) Take 1 tablet by mouth daily starting 7 days before the first treatment and continuing until 21 days after the last pemetrexed treatment 30 tablet 5 05/31/20 22 022 Discontinued Active Problems Problem Noted Date Diagnosed Date Nocturnal hypoxemia 10/30/2023 Hyperlipemia 09/15/2023 Disease of cardiovascular system 09/15/2023 Sleep disorder 05/25/2023 Persons encountering health services in other specified circumstances 04/19/2022 Mass of upper lobe of left lung 03/18/2022 Overview (03/18/2022): Added automatically from request for surgery [id number] BMI 31.0-31.9,adult 11/29/2021 Consolidation of left upper lobe of lung 022 Overview (09/01/2021): Added automatically from request for surgery [id number] Overweight 07/05/2021 Cigarette nicotine dependence in remission [...] Encounters Date Type Department Care Team Description 11/19/2024 2:30 PM CDT Office Visit [facility] [address] [place] [address] [place] [phone] Romel Valerio MD PhD Malignant neoplasm of overlapping sites of left lung (HCC) (Primary Dx); 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) 11/19/2024 2:15 PM CDT Clinical Support [facility] [address] [place] [address] Malignant neoplasm of overlapping sites of left lung (HCC) 11/13/2024 2:09 PM CDT - 11/13/2024 11:59 PM CDT Hospital Encounter [facility] MRI [address] [place] [address] Malignant neoplasm of overlapping sites of left lung (HCC) Discharge Disposition: Discharge to home or self care 11/13/2024 2:08 PM CDT - 11/13/2024 11:59 PM CDT Hospital Encounter [facility] [address] [place] [address] Malignant neoplasm of overlapping sites of left [...] meds COPD (chronic obstructive pu lmonary disease) (HCC) Shingles 11/2020 has had on and o [...] incontinence wears pad Abdominal aortic aneurysm (AAA) seen on angiogram, primary monitoring Presence of dental bridge perman ent Dental crown present Non-small cell cancer of lef t lung (HCC) 11/08/2018 radiation last 2019 PVD (peripheral vascular disease) Hypothyroidism Anxiety Depression Muscle pain legs Redness [...] on file Legal Sex Female 4:07 AM 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 Gender Identity Not on file Sexual Orientation Not on file Obstetrics History Last Filed Vital Signs Vital Sign Reading Time Taken Comments Blood Pressure 188/77 11/19/2024 2:26 PM CDT RN notfied Pulse 78 11/19/2024 2:26 PM CDT Temperature 36.6 C (97.8 F) 11/19/2024 2:26 PM CDT Respiratory Rate 18 11/19/2024 2:26 PM CDT Oxygen Saturation 99% 11/19/2024 2:2 6 PM CDT Inhaled Oxygen Concentration - - Weight 64.7 kg (142 lb 9.6 oz) 11/20/19 2:26 PM CDT Height 144.8 cm (4' 9 ) 11/19/2024 2:26 PM CDT Body Mass Index 30.86 11/19/2024 2:26 PM CDT Plan of Treatment Health Maintenance Due Date Last Done Comments Depression Screening 1940 Osteoporosis Screening-Bone Density Scan 1940 DTaP/Tdap/Td Vaccine (1 - Tdap) 1952 Hepatitis B Screening 1959 Pneumococcal vaccine 65+ (1 of 2 - PCV) 1960 Zoster Vaccine (1 of 2) 1960 Well Visit 65+ 2006 Covid-19 Vaccine (3 - Pfizer risk series) 02/20/2021 01/23/2021, 01/02/2021 Fall Risk Assessment 06/03/2023 06/03/2022 Influenza Vaccine (Season Ended) 2025 Medical Devices Implanted Type Area Yeast Pusher Device Identifier Shelf Expiration Date Model / Serial / Lot Cardiac Stent Coronary Artery [employer] Xcela Power Port 8fr [id number] - [id number] Implanted:Qty: 1 on 06/03/2022 at [facility] [employer] 02/06/2027 [id number] / / [id number] Procedures Procedure Name Priority Date/Time Associated Diagnosis Comments EGFR Routine 11/19/2024 2:09 PM CDT Malignant neoplasm of overlapping sites of left lung (HCC) DIFFERENTIAL AUTO Routine 11/19/2024 2:0 9 PM CDT Malignant neoplasm of overlapping sites of left lung (HCC) CBC WITH AUTO DIFFERENTIAL Routine 11/19/2024 2:09 PM CDT Malignant neoplasm of overlapping sites of left lung (HCC) COMPREHENSIVE METABOLIC PANEL Routine 11/19/2024 2:09 PM CDT Malignant neoplasm of overlapping sites of left lung (HCC) CT CHEST ABDOMEN PELVIS W CONTRAST Schedule Routine, Read Routine (OP Routine) 11/13/2024 3:21 PM CDT Malignant neoplasm of overlapping sites of left lung (HCC) POCT CREATININE FOR CONTRAST EVALUATION Routine 11/13/2024 3:17 PM CDT MRI BRAIN W WO CONTRAST Schedule Routine, Read Routine (OP Routine) 11/13/2024 2:48 PM CDT Malignant neoplasm of overlapping sites of left lung (HCC) from Last 3 Months Results * (ABNORMAL) eGFR (11/19/2024 2:09 PM CDT) eGFR 56(L) >=60 mL/min/1. 73 m2 Comment: Interpretive Data [...] was last reviewed 2021. Testing performed by: [address] [address] Blood 11/19/2024 2:09 PM CDT 11/19/2024 2:17 PM CDT us Romel Valerio MD PhD LAB BLOOD ORDERABLES Final Result [facility] [address] [facility] Department [place] [address] * Differential, auto (11/19/2024 2:09 PM CDT) Neutrophil abs 3.68 1.50 - 6.50 K/cumm Comment:Testing performed by : [address] [address] Imm gran abs 0.02 0.00 - 0.10 K/cumm [facility] WALKER Comment:Testing performed by : [address] [address] Lymphocyte abs 1.04 0.80 - 3.30 K/cumm ABDIEL Comment:Testing performed by : [address], [place]., [address] Monocyte abs 0.57 0.20 - 0.80 K/cumm [facility] Comment:Testing performed by : [address], [place]., [address] Eosinophil abs 0.12 0.00 - 0.50 K/cumm [facility] Comment:Testing performed by : [address], [place]., [address] Basophil abs 0.02 0.00 - 0.10 K/cumm [facility] Comment:Testing performed by : [address] [address] Neutrophil pct 67.4 % [facility] Comment: Interpretive Data Percent cell count reference ranges are not reported, since discordance with absolute values may lead to misinterpretation of CBC data. Current Interpretive Data was last revised on 2017. Testing performed by: [address] [address] Imm gran pct 0.4 % [facility] Comment: Interpretive Data Percent cell count reference ranges are not reported, since discordance with absolute values may lead to misinterpretation of CBC data. Current Interpretive Data was last revised on 2017. Testing performed by: [address] [address] Lymphocyte pct 19.1 % [facility] Comment: Interpretive Data Percent cell count reference ranges are not reported, since discordance with absolute values may lead to misinterpretation of CBC data. Current Interpretive Data was last revised on 2017. Testing performed by: [address] [address] Monocyte pct 10.5 % [facility] Comment: Interpretive Data Percent cell count reference ranges are not reported, since discordance with absolute values may lead to misinterpretation of CBC data. Current Interpretive Data was last revised on 2017. Testing performed by: [address] [address] Eosinophil pct 2.2 % [facility] Comment: Interpretive Data Percent cell count reference ranges are not reported, since discordance with absolute values may lead to misinterpretation of CBC data. Current Interpretive Data was last revised on 2017. Testing performed by: [address] [address] Basophil pct 0.4 % [facility] WALKER Comment: Interpretive Data Percent cell count reference ranges are not reported, since discordance with absolute values may lead to misinterpretation of CBC data. Current Interpretive Data was last revised on 2017. Testing performed by: [address] [address] Blood 11/19/2024 2:09 PM CDT 11/19/2024 2:17 PM CDT us Romel Valerio MD PhD LAB BLOOD ORDERABLES Final Result [facility] [address] [facility] Department [place] [address] * (ABNORMAL) CBC with auto differential (11/19/2024 2:09 PM CDT) WBC 5.45 3.80 - 9.90 K/cumm Comment:Testing performed by : [address] [address] Hgb 10.4(L) 11.9 - 15.5 g/dL [facility]BDIEL WALKER Comment:Testing performed by : [address] [address] Hct 31.7(L) 35.6 - 45.5 % ABDIEL WALKER Comment:Testing performed by : [address] [address] Plt 207 150 - 400 K/cumm ABDIEL WALKER Comment:Testing performed by : [address] [address] MPV 9.1 9.1 - 12.3 fL ABDIEL WALKER Comment:Testing performed by : [address] [address] RBC 3.85(L) 3.90 - 5.20 M/cumm ABDIEL WALKER Comment:Testing performed by : [address] [address] MCV 82.3 81.3 - 96.4 fL ABDIEL Comment:Testing performed by : [address] [address] MCH 27.0(L) 27.1 - 33.3 pg ABDIEL WALKER Comment:Testing performed by : [address] [address] MCHC 32.8 32.3 - 35.7 g/dL ABDIEL Comment:Testing performed by : [address] [address] RDW CV 16.2(H) 11.1 - 14.9 % [facility]BDIEL Comment:Testing performed by : [address] [address] RDW SD 47.9 35.7 - 48.1 fL [facility]BDIEL Comment:Testing performed by : [address] [address] NRBC abs 0.00 0.00 - 0.01 K/cumm ABDIEL Comment:Testing performed by : [address] [address] ANC Prelim 3.68 1.50 - 6.50 K/cumm ABDIEL Comment: Interpretive Data The rapid ANC is a preliminary automated count and may vary from the final ANC (Neut Abs) reported in the WBC differential that follows. Current interpretive data was last revised 2024. Testing performed by: [address] [address] Blood 11/19/2024 2:09 PM CDT 11/19/2024 2:17 PM CDT us Romel Valerio MD PhD LAB BLOOD ORDERABLES Final Result [facility] [address] [facility] Department [place] [address] * (ABNORMAL) Comprehensive metabolic panel (11/19/2024 2:09 PM CDT) Sodium 136 135 - 145 mmol/L Comment:Testing performed by : [address] [place]., [address] Potassium, pl 3.9 3.3 - 4.9 mmol/L ABDIEL Comment:Testing performed by : [address] [address] Chloride 101 97 - 110 mmol/L ABDIEL Comment:Testing performed by : [address], [place]., [address] CO2 24 22 - 32 mmol/L ABDIEL Comment:Testing performed by : [address] [address] Anion gap 11 2 - 15 mmol/L ABDIEL Comment:Testing performed by : [address] [address] BUN 28(H) 6 - 25 mg/dL [facility]BDIEL Comment:Testing performed by : [address], [place]., [address] Creatinine 1.00 0.60 - 1.10 mg/dL ABDIEL Comment:Testing performed by : [address] [address] Glucose 103 70 - 199 mg/dL [facility] Comment: Interpretive Data Fasting glucose [...] was last revised 2022. Testing performed by: [address] [address] Calcium 9.1 8.5 - 10.3 mg/dL ABDIEL Comment:Testing performed by : [address] [address] Bilirubin, total <0.2 0.1 - 1.2 mg/dL [facility] Comment:Testing performed by : [address] [address] Protein, pl 7.1 6.5 - 8.5 g/dL ABDIEL Comment:Testing performed by : [address] [address] Albumin 4.2 3.5 - 5.0 g/dL ABDIEL Comment:Testing performed by : [address] [address] Alk phos 70 40 - 130 Units/L ABDIEL Comment:Testing performed by : [address] [address] ALT 15 7 - 45 Units/L ABDIEL Comment:Testing performed by : [address] [address] AST 29 10 - 45 Units/L ABDIEL Comment:Testing performed by : [address] [address] Blood 11/19/2024 2:09 PM CDT 11/19/2024 2:17 PM CDT Romel Valerio MD PhD LAB BLOOD ORDERABLES Final Result [facility] [address] [facility] Department [place] [address] * CT chest abdomen pelvis with contrast (11/13/2024 3:21 PM CDT) Anatomical Region Laterality Modality Body N/A Computed Tomogra phy 11/16/2024 1:20 PM CDT Narrative 11/16/2024 1:39 PM CDT EXAM DESCRIPTION: CT CHEST ABDOMEN PELVIS W CONTRAST REASON FOR STUDY: Restaging of lung cancer, Malignant neoplasm of overlapping sites of left lung (HCC) TECHNIQUE: CT scan of the chest, abdomen, and pelvis performed with intravenous and without oral contrast using helical scanning technique with dynamic intravenous contrast injection. Reconstructed coronal and sagittal MPR images reviewed. All images stored on PACS. Automated exposure control was used as a dose optimization technique for this examination. CONTRAST TYPE/DOSE: 93mL of IOVERSOL 350 MG IODINE/ML INTRAVENOUS SYRINGE injected via intravenous COMPARISON: CT chest abdomen pelvis 08/06/2024 FINDINGS: CHEST LUNGS: There is unchanged volume loss in the left hemithorax with occlusion of a left upper lobe bronchus and large wedge-shaped opacity in the left lung apex appearing unchanged from the comparison examination and likely representing atelectasis with adjacent scarring and posttreatment change. There is an unchanged 4 mm nodule in the right lung apex (series 3, image 17). There are no new pulmonary nodules. There is no pleural effusion or pneumothorax. MEDIASTINUM/SHIRLEY: No lymphadenopathy. There is small hiatal hernia. HEART: Heart size is normal with no pericardial effusion. Similar appearance of the left ventricular apex with mild thinning of the myocardium, likely from prior infarction. There are extensive mitral annular calcifications. Prior CABG. VASCULATURE CHEST: Moderate atherosclerotic plaque in the thoracic aorta without aneurysm or dissection. AXILLA: No adenopathy. CHEST WALL: No masses. No subcutaneous air. HARDWARE/LINES/TUBES: Right-sided Port-A-Cath with the tip in the right atrium. Median sternotomy wires again noted. MUSCULOSKELETAL CHEST: There is no suspicious osseous lesion. ABDOMEN/PELVIS LIVER: Normal size. No identified cystic or solid masses. GALLBLADDER: No stones identified. No wall thickening or inflammatory changes. BILE DUCTS: No intrahepatic or extrahepatic ductal dilatation. SPLEEN: Normal size. No focal lesions. PANCREAS: No identified cystic or solid masses. No significant calcifications. No adjacent inflammation or peripancreatic fluid collections. Pancreatic duct not dilated. ADRENALS: There is mild thickening of the adrenal glands without a discrete nodule. KIDNEYS/URINARY TRACT: There is an unchanged 10 mm lesion in the lateral aspect of the left kidney (series 6, image 43), which is indeterminate. A simple cysts in the upper pole of the right kidney is unchanged. There are a few small sub 5 mm nonobstructing intrarenal calculi bilaterally. There is no hydronephrosis or hydroureter. Urinary bladder is unremarkable. GI: Small hiatal hernia. Stomach is mostly decompressed. No dilated or thick-walled loops of bowel appreciated. There is colonic diverticulosis without diverticulitis. Appendix not definitively identified. No sign of appendicitis. PERITONEUM: No ascites or free air. RETROPERITONEUM: No mass or adenopathy. REPRODUCTIVE: Uterus is absent. VASCULATURE ABDOMEN: Large amount of atherosclerotic plaque in the abdominal aorta and iliac vessels. There is a similar-appearing 3.4 cm infrarenal abdominal aortic aneurysm. MUSCULOSKELETAL ABDOMEN PELVIS: No suspicious osseous lesion. Again noted are multilevel degenerative changes of the lumbar spine including grade 1 anterolisthesis L3 on L4 and L4 on L5. OTHER: No significant abnormality. IMPRESSION: Unchanged volume loss in the left hemithorax with occlusion of a left upper lobe bronchus and large wedge-shaped opacity in the left lung apex appearing unchanged from the comparison examination and likely representing atelectasis with adjacent scarring and posttreatment change. Consider follow-up PET-CT to exclude disease recurrence. Unchanged 4 mm nodule in the right lung apex. No new pulmonary nodules. Unchanged 10 mm lesion in the lateral aspect of the left kidney, which is indeterminate. Unchanged 3.4 cm infrarenal abdominal aortic aneurysm. Additional findings as above. THIS IS AN ELECTRONICALLY VERIFIED FINAL REPORT 11/16/2024 1:39 PM - Electronically signed by Bladimir Verdugo M.D. AM: AM Report ID: [id number] Reading Location: [place] [address] Procedure Note Bladimir Verdugo MD - 11/16/2024 EXAM DESCRIPTION: CT CHEST ABDOMEN PELVIS W CONTRAST REASON FOR STUDY: Restaging of lung cancer, Malignant neoplasm of overlapping sites of leftlung (HCC) TECHNIQUE: CT scan of the chest, abdomen, and pelvis performed with intravenous and without oral contrast using helical scanning techniquewith dynamic intravenous contrast injection. Reconstructed coronal and sagittalMPR images reviewed. All images stored on PACS. Automated exposure control was used as a dose optimization technique for this examination. CONTRAST TYPE/DOSE: 93mL of IOVERSOL 350 MG IODINE/ML INTRAVENOUS SYRINGE injected via intravenous COMPARISON: CT chest abdomen pelvis 08/06/2024 FINDINGS: CHEST LUNGS: There is unchanged volume loss in the left hemithorax withocclusion of a left upper lobe bronchus and large wedge-shaped opacity in the left lung apex appearing unchanged from the comparison examination and likely representing atelectasis with adjacent scarring and posttreatment change. There is an unchanged 4 mm nodule in the right lung apex (series 3, image17). There are no new pulmonary nodules. There is no pleural effusion or pneumothorax. MEDIASTINUM/SHIRLEY: No lymphadenopathy. There is small hiatal hernia. HEART: Heart size is normal with no pericardial effusion. Similar appearance of the left ventricular apex with mild thinning of themyocardium, likely from prior infarction. There are extensive mitral annular calcifications. Prior CABG. VASCULATURE CHEST: Moderate atherosclerotic plaque in the thoracic aorta without aneurysm or dissection. AXILLA: No adenopathy. CHEST WALL: No masses. No subcutaneous air. HARDWARE/LINES/TUBES: Right-sided Port-A-Cath with the tip in the right atrium. Median sternotomy wires again noted. MUSCULOSKELETAL CHEST: There is no suspicious osseous lesion. ABDOMEN/PELVIS LIVER: Normal size. No identified cystic or solid masses. GALLBLADDER: No stones identified. No wall thickening or inflammatory changes. BILE DUCTS: No intrahepatic or extrahepatic ductal dilatation. SPLEEN: Normal size. No focal lesions. PANCREAS: No identified cystic or solid masses. No significant calcifications. No adjacent inflammation or peripancreatic fluidcollections. Pancreatic duct not dilated. ADRENALS: There is mild thickening of the adrenal glands without adiscrete nodule. KIDNEYS/URINARY TRACT: There is an unchanged 10 mm lesion in the lateral aspect of the left kidney (series 6, image 43), which is indeterminate. A simple cysts in the upper pole of the right kidney is unchanged. Thereare a few small sub 5 mm nonobstructing intrarenal calculi bilaterally. Thereis no hydronephrosis or hydroureter. Urinary bladder is unremarkable. GI: Small hiatal hernia. Stomach is mostly decompressed. No dilated or thick-walled loops of bowel appreciated. There is colonic diverticulosis without diverticulitis. Appendix not definitively identified. No sign of appendicitis. PERITONEUM: No ascites or free air. RETROPERITONEUM: No mass or adenopathy. REPRODUCTIVE: Uterus is absent. VASCULATURE ABDOMEN: Large amount of atherosclerotic plaque in the abdominal aorta and iliac vessels. There is a similar-appearing 3.4 cm infrarenal abdominal aortic aneurysm. MUSCULOSKELETAL ABDOMEN PELVIS: No suspicious osseous lesion. Againnoted are multilevel degenerative changes of the lumbar spine including grade 1 anterolisthesis L3 on L4 and L4 on L5. OTHER: No significant abnormality. IMPRESSION: Unchanged volume loss in the left hemithorax with occlusion ofa left upper lobe bronchus and large wedge-shaped opacity in the left lungapex appearing unchanged from the comparison examination and likelyrepresenting atelectasis with adjacent scarring and posttreatment change. Consider follow-up PET-CT to exclude disease recurrence. Unchanged 4 mm nodule in the right lung apex. No new pulmonary nodules. Unchanged 10 mm lesion in the lateral aspect of the left kidney, which is indeterminate. Unchanged 3.4 cm infrarenal abdominal aortic aneurysm. Additional findings as above. THIS IS AN ELECTRONICALLY VERIFIED FINAL REPORT 11/16/2024 1:39 PM - Electronically signed by Bladimir Verdugo M.D. AM: AM Report ID: [id number] Reading Location: [id number] [place] Romel Valerio MD PhD IMG CT PROCEDURES Fin al Result * POCT creatinine for contrast evaluation (11/13/2024 3:17 PM CDT) Creatinine POC 1.10 0.60 - 1.10 mg/dL Comment:Testing performed by : [facility], [address] [place] [address]., [id number] Blood 11/13/2024 3:17 PM CDT 11/13/2024 3:17 PM CDT Romel Valerio MD PhD POINT OF CARE TEST OR DERABLES Final Result [facility] [address] [facility] Department [place] [address] * MRI Brain W WO Contrast (11/13/2024 2:48 PM CDT) Anatomical Region Laterality Modality Head and Neck N/A Magnetic Resonan ce 11/14/2024 10:0 5 AM CDT Narrative 11/14/2024 10:41 AM CDT EXAM DESCRIPTION: MRI BRAIN W WO CONTRAST REASON FOR STUDY: Restaging of lung cancer- rule out brain mets Restaging of lung cancer- rule out brain mets, Malignant neoplasm of overlapping sites of left lung TECHNIQUE: Multiplanar imaging includes noncontrast T1, T2, FLAIR, diffusion with ADC map and post contrast T1 sequences. Additional sequence(s) sensitive to blood products. Images stored on PACS. CONTRAST TYPE/DOSE: 14mL of GADOTERATE MEGLUMINE 0.5 MMOL/ML INTRAVENOUS SOLUTION (SO) injected via intravenous COMPARISON: Multiple previous MRI brain examinations with most recent dated 05/09/2024. FINDINGS: There is no diffusion restriction to suggest acute/recent infarction. No parenchymal susceptibility signal to indicate blood degradation products. There is mild diffuse parenchymal volume loss. No hydrocephalus. The basilar cisterns are maintained. 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 Elsewhere in the brain the subcortical and periventricular white matter T2/FLAIR hyperintense signal in the bilateral cerebral hemispheres is nonspecific but compatible with chronic microvascular ischemic type change in a patient of this age. Similar signal alteration is seen in the allen. The postcontrast sequences are suboptimal due to motion related artifact. No convincing enhancing parenchymal mass to suggest metastatic disease. The right lateral temporal convexity extra-axial meningioma as seen previously. No progressive mass effect or parenchymal edema. Bilateral cataract eye surgeries. Mucosal thickening in the bilateral ethmoid air cells. The mastoid air cells are predominantly clear. The right occipital condyle and adjacent soft tissue to rounded FLAIR hyperintensities (series 6, image 9) are nonspecific but present on the MRI brain dated 06/09/2022. IMPRESSION: 1. No convincing enhancing parenchymal mass to suggest metastatic disease. 2. Right temporal convexity small meningioma as seen previously. No progressive mass effect or parenchymal edema. 3. Additional findings as above. THIS IS AN ELECTRONICALLY VERIFIED FINAL REPORT 11/14/2024 10:41 AM - Electronically signed by Carlos Harris D.O. AP: BAYRON Report ID: [id number] Reading Location: [id number] Procedure Note Carlos Harris, DO - 11/14/2024 EXAM DESCRIPTION: MRI BRAIN W WO CONTRAST REASON FOR STUDY: Restaging of lung cancer- rule out brain mets Restaging of lung cancer- rule out brain mets, Malignant neoplasm of overlapping sites of left lung TECHNIQUE: Multiplanar imaging includes noncontrast T1, T2, FLAIR,diffusion with ADC map and post contrast T1 sequences. Additional sequence(s)sensitive to blood products. Images stored on PACS. CONTRAST TYPE/DOSE: 14mL of GADOTERATE MEGLUMINE 0.5 MMOL/ML INTRAVENOUS SOLUTION (SO) injected via intravenous COMPARISON: Multiple previous MRI brain examinations with most recentdated 05/09/2024. FINDINGS: There is no diffusion restriction to suggest acute/recent infarction. No parenchymal susceptibility signal to indicate blood degradationproducts. There is mild diffuse parenchymal volume loss. No hydrocephalus. Thebasilar cisterns are maintained. 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 Elsewhere in the brain the subcortical and periventricular white matter T2/FLAIRhyperintense signal in the bilateral cerebral hemispheres is nonspecific but compatible with chronic microvascular ischemic type change in a patient of this age. Similar signal alteration is seen in the allen. The postcontrast sequences are suboptimal due to motion related artifact.No convincing enhancing parenchymal mass to suggest metastatic disease. The right lateral temporal convexity extra-axial meningioma as seenpreviously. No progressive mass effect or parenchymal edema. Bilateral cataract eye surgeries. Mucosal thickening in the bilateralethmoid air cells. The mastoid air cells are predominantly clear. The right occipital condyle and adjacent soft tissue to rounded FLAIRhyperintensities (series 6, image 9) are nonspecific but present on the MRI brain dated 06/09/2022. IMPRESSION: 1. No convincing enhancing parenchymal mass to suggest metastaticdisease. 2. Right temporal convexity small meningioma as seen previously. No progressive mass effect or parenchymal edema. 3. Additional findings as above. THIS IS AN ELECTRONICALLY VERIFIED FINAL REPORT 11/14/2024 10:41 AM - Electronically signed by Carlos Harris D.O. 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 Expl anation ADVANCE DIRECTIVE 09/30/2018 12:00 AM JAY JAY R OF DIRECT MARKETING SPECIALIST FINANCIAL/MEDICAL * Full Code (Latest Code Status on File) Date Activated Date Inactivated Comments 06/03/2022 8:52 AM 06/04/2022 5:14 AM Care Teams Epitaxial Reactor Technician Relationship Specialty Start Date End Date Chandni Vang NP [address] [place] [address] PCP - General Nurse Practitioner 08/22/23 Kaushik Gonzalez DO Referring Physician Internal Medicine 08/09/18 Navjot Danielson MD Cardiothoracic Surgery 08/21/18 Rinku Hoffmann MD Radiation Oncologist Radiation Oncology 07/28/21 Adryan Stevens MD Consulting Physician Cardiovascular Disease 09/02/21 Romel Valerio MD PhD [address] [place] [address] MEDICAL ONCOLOGY, [address] [id number] Consulting Physician Medical Oncology 04/04/22 Rachel Ramirez MD [address] [place] [address] MEDICAL ONCOLOGY, [address] [id number] Consulting Physician Pulmonary Disease 04/20/22 Ivis Okeefe MD [address] [place] [address] MEDICAL ONCOLOGY, [address] [address] Referring Physician Dermatology 08/30/22
--- OUTSIDE RECORDS SUMMARY | 2024-12-10 14:00 | XMS_ITS | Encounter Summary ---
Author Organization [facility] Facility Care Team Providers Care Latin Teacher Name Role Phone Kaushki Gonzalez DO Primary Care Provider [phone] Kaushik Gonzalez DO Primary Care Provider [phone] Kaushik Gonzalez DO Unavailable Kaushik Gonzalez DO Unavailable Navjot Danielson MD Unavailable [phone] Checo Hawley MD Unavailable [phone] Rinku Hoffmann MD Unavailable [phone] Adryan Stevens MD Unavailable [phone] Romel Valerio MD PhD Unavailable [phone] Rachel Ramirez MD Unavailable [phone] Ivis Okeefe MD Unavailable [phone] Chandni Vang Primary Care Provider Unavailabl Kaushik Swain DO Primary Care Provider [phone] Chandni Vang NP Primary Care Provider [phone] Encounter Details Date Type Department Care Team (Latest Contact Info) Description 09/06/2018 Orders Only [facility] CLINCONV ProviderNahum MD [address] [place] [address] Social History Tobacco Use Types Packs/Day Years Used Date Smoking Tobacco: Every Day Smokeless Tobacco: Never Alcohol Use Standard Drinks/Week Comments Yes 0 (1 standard drink = 0.6 oz pur e alcohol) Comments Unknown Sex and Gender Information Value Date Recorded Sex Assigned at Not on file Legal Sex Female 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 us Historical Provider Final Res ult documented in this encounter Visit Diagnoses Not on filedocumented in this encounter Additional Health Concerns Infection Onset Date Last Indicated Resolved Time COVID: Suspected 09/06/2021 09/06/2021 09/06/2021 10:47 PM CARBON BRUSHES ASSEMBLER documented as of this encounter Care Teams Latin Teacher Relationship Specialty Start Date End Date Kaushik Gonzalez DO PCP - General Internal Medicine 08/09/18 09/20/18 Kaushik Gonzalez DO PCP - General 09/21/18 01/23/23 Chandni Vang PCP - General Family Medicine 01/24/23 02/27/23 Kaushik Gonzalez DO PCP - General Internal Medicine 02/28/23 08/21/23 Chandni Vang NP [address] [place] [address] PCP - General Nurse Practitioner 08/22/23 Kaushik Gonzalez DO Internal Medicine 09/21/18 02/27/23 Sudarshan Gonzalezisabell Referring Physician Internal Medicine 08/09/18 Navjot Danielson MD Cardiothoracic Surgery 08/21/18 Checo Hawley MD Medical Oncologist/Hematologis t Hematology and Oncology 08/31/18 04/03/22 Rinku Hoffmann MD Radiation Oncologist Radiation Oncology 07/28/21 Adryan Stevens MD Consulting Physician Cardiovascular Disease 09/02/21 Romel Valerio MD PhD [address] [place] [address] MEDICAL ONCOLOGY, [address] [address] Consulting Physician Medical Oncology 04/04/22 Rachel Ramirez MD [address] [place] [address] MEDICAL ONCOLOGY, [address] [address] Consulting Physician Pulmonary Disease 04/20/22 Ivis Okeefe MD [address] [place] [address] MEDICAL ONCOLOGY, [address] [address] Referring Physician Dermatology 08/30/22 documented as of this encounter
--- OUTSIDE RECORDS SUMMARY | 2024-12-10 14:00 | XMS_ITS ---
Author Organization [facility] [place] [address] Address [address] [place] [address] Care Team Providers Care Harp Maker Name Role Phone Kaushik Gonzalez DO Unavailable Navjot Danielson MD Unavailable [phone] Rinku Hoffmann MD Unavailable [phone] Adryan Stevens MD Unavailable Romel Valerio MD PhD Unavailable Rachel Ramirez MD Unavailable Ivis Okeefe MD Unavailable [phone] Chandni Vang NP Primary Care Provider Active Problems Problem Noted Date Diagnosed Date Nocturnal hypoxemia 10/30/2023 Hyperlipemia 09/15/2023 Disease of cardiovascular system 09/15/2023 Sleep disorder 05/25/2023 Persons encountering health services in other specified circumstances 04/19/2022 Mass of upper lobe of left lung 03/18/2022 Overview (03/18/2022): Added automatically from request for surgery [id number] BMI 31.0-31.9,adult 11/29/2021 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 Past Treatment and Therapy Plans Oncology Chemotherapy Treatment Plan Name Start Date Discontinue Date Treatment Medications Discontinue Reason Plan Provider Cycles pembrolizumab / pemetrexed / CARBOplatin 21 day cycles - Non-Small Cell Lung 022 06/21/2022 CARBOplatin (PARAPLATIN)CARBO platin (PARAPLATIN) IVPB in 250 mLpembrolizumab (KEYTRUDA)PEMEtre xed (ALIMTA)PEMEtrexe d (ALIMTA) IVPB ([id number]) Provider Discretion Romel Valerio MD PhD 1 of 24 cycles started Lifetime Dose Tracking * Chemical Lifetime Dose [...]
--- OUTSIDE RECORDS SUMMARY | 2024-12-10 14:00 | XMS_ITS | Clinical Summary ---
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 Essential [...] Years Used Date Smoking Tobacco: Never Assessed Comments Unknown Sex and Gender Information Value Date Recorded Sex Assigned at Not on file Legal Sex Female 9:54 AM MST Gender Identity Not on file Sexual Orientation Not on file Last Filed Vital Signs Vital Sign Reading Time Taken Comments Blood Pressure 148/82 10/05/2016 12:01 AM COUNTY AGENT Sitting, Right Pulse - - Temperature 36.8 C (98.3 F) 10/05/2016 12:01 AM COUNTY AGENT Respiratory Rate - - Oxygen Saturation - - Inhaled Oxygen Concentration - - Weight 63.5 kg (140 lb) 10/05/2016 12:0 1 AM COUNTY AGENT Height 144.8 cm (4' 9 ) 10/05/2016 12:0 1 AM COUNTY AGENT Body Mass Index 30.3 10/05/2016 12:01 AM COUNTY AGENT Plan of Treatment Not on file
--- OUTSIDE RECORDS SUMMARY | 2024-12-10 14:00 | XMS_ITS | Referral Summary ---
Author Organization [facility] [place] [address] Address [address] [place] [address] Care Team Providers Care Cofounder Name Role Phone Kaushik Gonzalez DO Unavailable Navjot Danielson MD Unavailable [phone] Rinku Hoffmann MD Unavailable [phone] Adryan Stevens MD Unavailable [phone] Romel Valerio MD PhD Unavailable Rachel Ramirez MD Unavailable Ivis Okeefe MD Unavailable [phone] Chandni Vang TEST TECHNICIAN Primary Care Provider [phone] Encounters Date Type Department Care Team Description 11/19/2024 2:15 PM CDT Clinical Support [facility] at [address] [address] Malignant neoplasm of overlapping sites of left lung (HCC) 11/19/2024 2:30 PM CDT Office Visit [facility] Oncology [address] [place] [address] [address] [place] [address] Romel Valerio MD PhD Malignant neoplasm of overlapping sites of left lung (HCC) (Primary Dx); 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) 11/13/2024 2:08 PM CDT - 11/13/2024 11:59 PM CDT Hospital Encounter [facility] [address] [place] [address] Malignant neoplasm of overlapping sites of left lung (HCC) Discharge Disposition: Discharge to home or self care 11/13/2024 2:09 PM CDT - 11/13/2024 11:59 PM CDT Hospital Encounter [facility] MRI [address] [place] [address] Malignant neoplasm of overlapping sites of left lung (HCC) Discharge Disposition: Discharge to home or self care from Last 3 Months Allergies Active Allergy Reactions Criticality Noted Date Comments Fluticasone Propion-Salmeterol Other (See comments) Low 07/28/2020 Mouth sores Other Other (See comments) Low 03/21/2022 Skin breakout from paper mask Clopidogrel Hives Medium 08/16/2018 Tiotropium [place] Hives Medium 04/02/2019 Medications denosumab (PROLIA) 60 mg/mL syringe Inject under the skin every 6 (six) months Every 6 months. Last time oct 3 Active amLODIPine (NORVASC) 5 mg tablet Take 1 tablet (5 mg total) by mouth daily Active levothyroxine (SYNTHROID, LEVOTHROID) 75 mcg tablet Take 1 tablet (75 mcg total) by mouth hoist operator before breakfast Active aspirin 81 mg enteric [...] Verio Flex meter misc as directed 08/17/19 Active cholecalciferol (VITAMIN D-3) 2000 unit capsule [...] (03/18/2022): Added automatically from request for surgery [id number] BMI 31.0-31.9,adult 11/29/2021 Consolidation of left upper lobe of lung 022 Overview (09/01/2021): Added automatically from request for surgery [id number] Overweight 07/05/2021 Cigarette nicotine dependence in remission [...] on file Legal Sex Female 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 Testing performed by: [address] [address] Blood 11/19/2024 2:09 PM CDT 11/19/2024 2:17 PM CDT us Romel Valerio MD PhD LAB BLOOD ORDERABLES Final Result [facility] [address] [facility] [place] [address] * Differential, auto (11/19/2024 2:09 PM CDT) Neutrophil abs 3.68 1.50 - 6.50 K/cumm Comment:Testing performed by : [address] [address] Imm gran abs 0.02 0.00 - 0.10 K/cumm ABDIEL Comment:Testing performed by : [address] [address] Lymphocyte abs 1.04 0.80 - 3.30 K/cumm ABDIEL Comment:Testing performed by : [address] [address] Monocyte abs 0.57 0.20 - 0.80 K/cumm ABDIEL Comment:Testing performed by : [address] [address] Eosinophil abs 0.12 0.00 - 0.50 K/cumm [facility] Comment:Testing performed by : [address] [address] Basophil abs 0.02 0.00 - 0.10 K/cumm [facility] Comment:Testing performed by : [address] [address] Neutrophil pct 67.4 % [facility] Comment: Interpretive Data Percent cell count reference ranges are not reported, since discordance with absolute values may lead to misinterpretation of CBC data. Current Interpretive Data was last revised on 2017. Testing performed by: [address] [address] Imm gran pct 0.4 % [facility] Comment: Interpretive Data Percent cell count reference ranges are not reported, since discordance with absolute values may lead to misinterpretation of CBC data. Current Interpretive Data was last revised on 2017. Testing performed by: [address] [address] Lymphocyte pct 19.1 % [facility] Comment: Interpretive Data Percent cell count reference ranges are not reported, since discordance with absolute values may lead to misinterpretation of CBC data. Current Interpretive Data was last revised on 2017. Testing performed by: [address] [address] Monocyte pct 10.5 % [facility] Comment: Interpretive Data Percent cell count reference ranges are not reported, since discordance with absolute values may lead to misinterpretation of CBC data. Current Interpretive Data was last revised on 2017. Testing performed by: [address] [address] Eosinophil pct 2.2 % [facility] Comment: Interpretive Data Percent cell count reference ranges are not reported, since discordance with absolute values may lead to misinterpretation of CBC data. Current Interpretive Data was last revised on 2017. Testing performed by: [address] [address] Basophil pct 0.4 % [facility] Comment: Interpretive Data Percent cell count reference ranges are not reported, since discordance with absolute values may lead to misinterpretation of CBC data. Current Interpretive Data was last revised on 2017. Testing performed by: [address] [address] Blood 11/19/2024 2:09 PM CDT 11/19/2024 2:17 PM CDT us Romel Valerio MD PhD LAB BLOOD ORDERABLES Final Result [facility] [address] [facility] [place] [address] * (ABNORMAL) CBC with auto differential (11/19/2024 2:09 PM CDT) WBC 5.45 3.80 - 9.90 K/cumm Comment:Testing performed by : [address] [address] Hgb 10.4(L) 11.9 - 15.5 g/dL ABDIEL Comment:Testing performed by : [address] [address] Hct 31.7(L) 35.6 - 45.5 % ABDIEL Comment:Testing performed by : [address] [address] Plt 207 150 - 400 K/cumm ABDIEL Comment:Testing performed by : [address] [address] MPV 9.1 9.1 - 12.3 fL ABDIEL Comment:Testing performed by : [address] [address] RBC 3.85(L) 3.90 - 5.20 M/cumm ABDIEL Comment:Testing performed by : [address] [address] MCV 82.3 81.3 - 96.4 fL ABDIEL Comment:Testing performed by : [address] [address] MCH 27.0(L) 27.1 - 33.3 pg ABDIEL Comment:Testing performed by : [address] [address] MCHC 32.8 32.3 - 35.7 g/dL ABDIEL WALKER Comment:Testing performed by : [address] [address] RDW CV 16.2(H) 11.1 - 14.9 % ABDIEL WALKER Comment:Testing performed by : [address] [address] RDW SD 47.9 35.7 - 48.1 fL ABDIEL Comment:Testing performed by : [address] [address] NRBC abs 0.00 0.00 - 0.01 K/cumm ABDIEL Comment:Testing performed by : [address] [address] ANC Prelim 3.68 1.50 - 6.50 K/cumm ABDIEL Comment: Interpretive Data The rapid ANC is a preliminary automated count and may vary from the final ANC (Neut Abs) reported in the WBC differential that follows. Current interpretive data was last revised 2024. Testing performed by: [address] [address] Blood 11/19/2024 2:09 PM CDT 11/19/2024 2:17 PM CDT us Romel Valerio MD PhD LAB BLOOD ORDERABLES Final Result [facility] [address] [facility] Department of Laboratories [place], [place] [id number] * (ABNORMAL) Comprehensive metabolic panel (11/19/2024 2:09 PM CDT) Sodium 136 135 - 145 mmol/L Comment:Testing performed by : [address] [address] Potassium, pl 3.9 3.3 - 4.9 mmol/L ABDIEL WALKER Comment:Testing performed by : [address] [address] Chloride 101 97 - 110 mmol/L ABDIEL Comment:Testing performed by : [facility], [address] [place] [address]., [address] CO2 24 22 - 32 mmol/L ABDIEL Comment:Testing performed by : [address] [address] Anion gap 11 2 - 15 mmol/L ABDIEL Comment:Testing performed by : [address], [place]., [address] BUN 28(H) 6 - 25 mg/dL ABDIEL Comment:Testing performed by : [address], [place]., [address] Creatinine 1.00 0.60 - 1.10 mg/dL ABDIEL Comment:Testing performed by : [address] [address] Glucose 103 70 - 199 mg/dL ABDIEL Comment: Interpretive [...] was last revised 2022. Testing performed by: [address] [address] Calcium 9.1 8.5 - 10.3 mg/dL ABDIEL Comment:Testing performed by : [address] [address] Bilirubin, total <0.2 0.1 - 1.2 mg/dL ABDIEL Comment:Testing performed by : [address] [address] Protein, pl 7.1 6.5 - 8.5 g/dL ABDIEL Comment:Testing performed by : [address] [address] Albumin 4.2 3.5 - 5.0 g/dL ABDIEL Comment:Testing performed by : [address] [address] Alk phos 70 40 - 130 Units/L ABDIEL Comment:Testing performed by : [address] [address] ALT 15 7 - 45 Units/L ABDIEL WALKER Comment:Testing performed by : [address] [address] AST 29 10 - 45 Units/L ABDIEL Comment:Testing performed by : [address] [address] Blood 11/19/2024 2:09 PM CDT 11/19/2024 2:17 PM CDT us Romel Valerio MD PhD LAB BLOOD ORDERABLES Final Result Performing Organization Address City/State/[facility] Co de Phone Number A[facility] [place] [address] * CT chest abdomen pelvis with contrast [...] Bladimir Verdugo M.D. AM: AM Report ID: [id number] Reading Location: [id number] Procedure Note Bladimir Verdugo MD - 11/16/2024 [...] Bladimir Verdugo M.D. AM: AM Report ID: [id number] Reading Location: [id number] Romel Valerio MD PhD IMG CT PROCEDURES Fin al Result * POCT creatinine for contrast evaluation (11/13/2024 3:17 PM CDT) Creatinine POC 1.10 0.60 - 1.10 mg/dL Comment:Testing performed by : [facility], [address] [place] [address]., [address] Blood 11/13/2024 3:17 PM CDT 11/13/2024 3:17 PM CDT Romel Valerio MD PhD POINT OF CARE TEST OR DERABLES Final Result Performing Organization Address City/State/[facility] Co oh Phone Number [facility] [address] [facility] [place] [address] * MRI Brain W WO [...] Electronically signed by Carlos Harris D.O. AP: AP Report ID: [id number] Reading Location: [id number] Procedure Note Carlos Harris, DO - 11/14/2024 [...] Carlos Harris D.O. AP: BAYRON Report ID: [id number] Reading Location: [place] [address] Romel Valerio MD PhD IMG MRI PROCEDURES Fi nal Result from Last 3 Months Insurance MEDICARE [employer] MEDICARE [facility] FOR LIFE MEDICARE FOR LIFE Advance Directives For more information, please contact: [phone] Documents on File Type Date Recorded Patient Bungy Jump Master Expl anation ADVANCE DIRECTIVE 09/30/2018 12:00 AM JAY JAY R OF POWER ORIGINATOR FINANCIAL/MEDICAL * Full Code (Latest Code Status on File) Date Activated Date Inactivated Comments 06/03/2022 8:52 AM 06/04/2022 5:14 AM Care Teams Cofounder Relationship Specialty Start Date End Date Chandni Vang NP [address] [place] [address] PCP - General Nurse Practitioner 08/22/23 Kaushik Gonzalez DO Referring Physician Internal Medicine 08/09/18 Navjot Danielson MD Cardiothoracic Surgery 08/21/18 Rinku Hoffmann MD Radiation Oncologist Radiation Oncology 07/28/21 Adryan Stevens MD Consulting Physician Cardiovascular Disease 09/02/21 Romel Valerio MD PhD [address] [place] [address] MEDICAL ONCOLOGY, [address] [id number] Consulting Physician Medical Oncology 04/04/22 Rachel Ramirez MD [address] [place] [address] MEDICAL ONCOLOGY, [address] [address] Consulting Physician Pulmonary Disease 04/20/22 Ivis Okeefe MD [address] [place] [address] MEDICAL ONCOLOGY, [address] [id number] Referring Physician Dermatology 08/30/22
--- OUTSIDE RECORDS SUMMARY | 2024-12-10 14:00 | XMS_ITS | Encounter Summary ---
Author Organization [facility] Care Team Providers Care Flower Planter Name Role Phone Kaushik Gonzalez DO Primary Care Provider [phone] Kaushik Gonzalez DO Primary Care Provider [phone] Kaushik Gonzalez DO Unavailable Kaushik Gonzalez DO Unavailable Navjot Danielson MD Unavailable [phone] Checo Hawley MD Unavailable [phone] Rinku Hoffmann MD Unavailable [phone] Adryan Stevens MD Unavailable [phone] Romel Valerio MD PhD Unavailable Rachel Ramirez MD Unavailable [phone] Ivis Okeefe MD Unavailable [phone] Chandni Vang Primary Care Provider Unavailabl Kaushik Swain DO Primary Care Provider [phone] Chandni Vang NP Primary Care Provider [phone] Encounter Details Date Type Department Care Team (Latest Contact Info) Description 09/10/2018 Orders Only [facility] ProviderNahum MD [address] [place] [id number] Social History Tobacco Use Types Packs/Day Years Used Date Smoking Tobacco: Every Day Smokeless Tobacco: Never Alcohol Use Standard Drinks/Week Comments Yes 0 (1 standard drink = 0.6 oz pur e alcohol) Comments Unknown Sex and Gender Information Value Date Recorded Sex Assigned at Not on file Legal Sex Female 4:07 AM STATIONS SUPERINTENDENT Gender Identity Not on file Sexual Orientation Not on file documented as of this encounter Plan of Treatment Not on file documented as of this encounter Procedures Procedure Name Priority Date/Time Associated Diagnosis Comments PROCEDURE - RESULT 09/10/2018 12 :00 AM STATIONS SUPERINTENDENT documented in this encounter Results * PROCEDURE - RESULT (09/10/2018 12:00 AM STATIONS SUPERINTENDENT) Narrative 09/10/2018 12:00 AM STATIONS SUPERINTENDENT Ordered by an unspecified provider. us Historical Provider Final Res ult documented in this encounter Visit Diagnoses Not on filedocumented in this encounter Additional Health Concerns Infection Onset Date Last Indicated Resolved Time COVID: Suspected 09/06/2021 09/06/2021 09/06/2021 10:47 PM STATIONS SUPERINTENDENT documented as of this encounter Care Teams Flower Planter Relationship Specialty Start Date End Date Kaushik Gonzalez DO PCP - General Internal Medicine 08/09/18 09/20/18 Kaushik Gonzalez DO PCP - General 09/21/18 01/23/23 Chandni Vang PCP - General Family Medicine 01/24/23 02/27/23 Kaushik Gonzalez DO PCP - General Internal Medicine 02/28/23 08/21/23 Chandni Vang NP [address] [place] [address] PCP - General Nurse Practitioner 08/22/23 Kaushik Gonzalez DO Internal Medicine 09/21/18 02/27/23 Sudarshan Gonzalezisabell Referring Physician Internal Medicine 08/09/18 Navjot Danielson MD Cardiothoracic Surgery 08/21/18 Checo Hawley MD Medical Oncologist/Hematologis t Hematology and Oncology 08/31/18 04/03/22 Rinku Hoffmann MD Radiation Oncologist Radiation Oncology 07/28/21 Adryan Stevens MD Consulting Physician Cardiovascular Disease 09/02/21 Romel Valerio MD PhD [address] [place] [address] MEDICAL ONCOLOGY, [address] [address] Consulting Physician Medical Oncology 04/04/22 Rachel Ramirez MD [address] [place] [address] MEDICAL ONCOLOGY, [address] [address] Consulting Physician Pulmonary Disease 04/20/22 Ivis Okeefe MD [address] [place] [address] MEDICAL ONCOLOGY, [address] [address] Referring Physician Dermatology 08/30/22 documented as of this encounter
== END 2024-12-10 13:52 | disposition home or self-care (01) ==
PROVIDERS: PCP Nurse Practitioner Family; Visit Provider Urology
DX: N20.0 Calculus of kidney (principal)
CPT/HCPCS: 74018

== ENCOUNTER 2025-01-11 13:15 | Outpatient (CLI) | payer MEDICARE, OTHER, SELFPAY ==
--- OUTSIDE RECORDS SUMMARY | 2025-01-11 13:21 | XMS_ITS | Clinical Summary ---
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
--- OUTSIDE RECORDS SUMMARY | 2025-01-11 13:21 | XMS_ITS | Data Portability ---
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 Plan of Treatment Reminders Order Date Submit Date Provider Last Modified By Organization Details Last Modified Time Details Appointments ECHO 2024 02:45P M Kenyatta Schedule Not available Not available Not available ESTABLISH ED PATIENT DETAILED 2024 12:15P M Adryan Ramachandran i, MD Not available Not available Not available Lab None recorded. Referral None recorded. Procedures None recorded. Surgeries None recorded. Imaging None recorded. Medication Orders torsemide 20 mg tablet 2024 025 [facility], [address] [place], [address], 01/04/2025 15:32:20 Coreg 6.25 mg tablet 2024 025 [facility], [address] [place], [address], 01/04/2025 15:31:11 Bystolic 5 mg tablet 2024 025 ATHE[facility]X [facility], [address] [facility], [place], [address], 10/19/2024 14:05:55 nitroglyc kashif 0.4 mg sublingua l tablet 2024 025 [id number], [address], [place], [place], [id number], 09/17/2024 16:19:04 Bystolic 5 mg tablet 2024 025 [facility] #[id number], [address], [place], [place], [id number], 09/17/2024 16:19:05 Patient TargetsNo targets recorded. Patient Instructions Encounter Date Encounter Id Patient Instructions Last Modified By Organization Details Last Modified Time 03/12/2024 [id number] Exercise advised Low cholesterol diet advised Low sodium diet advised. [email or web address] Not available 03/12/2024 17:29:55 01/04/2025 [id number] Exercise advised Low cholesterol diet advised Low sodium diet advised. [email or web address] Not available 01/04/2025 15:31:27 Reason for Referral None Reported. Results Created Date Observation Date Name Description Value Unit Range Abnormal Flag Note LastModifiedBy Organization Detail LastModifiedTime 08/16/19 24 08/15/2023 elect rocar diogr am [...] record ed. [email or web address] Not Available 2024 18:54:59 09/20/19 25 09/17/2024 elect rocar diogr am No observ ation record ed. hmesto Not Available 2024 15:54:08 Result Notes None recorded. Problems Name Problem SNOMED Code Status Onset Date Resolution Date Notes Provider Name and Address Organization Details Recorded Time Dyspnea on exertion 40096879 Active 2018 Not Available [facility] 3 18:03:57 Pre-surgery testing Active 2018 Not Available [facility] 3 18:03:57 Coronary arteriosclero sis 81885790 Active 2018 Not Available [facility] 3 18:03:56 Essential hypertension 89142151 Active 2018 Not Available [facility] 3 18:03:57 Carcinoma of female breast 448321994 Active 2018 Not Available [facility] 3 18:03:57 Family history of coronary arteriosclero sis 375257518 Active 2018 Not Available [facility] 3 18:03:56 Malignant neoplasm of lung 875131805 Active 2018 Not Available [facility] 3 18:03:57 Angina pectoris 365809811 Active 2019 Not Available [facility] 3 18:03:57 Stented coronary artery 288050462 Active 2019 Not Available [facility] 3 18:03:57 Intermittent claudication 80706666 Active 2019 Not Available [facility] 3 18:03:57 Dyslipidemia 016104068 Active 2019 Not Available [facility] 3 18:03:57 Notes:Has Lung mass, LL lobe . Needs surgical pre-auth for Dr. Argueta. Problem Notes None recorded. Medical Equipment None Reported. Allergies Allergen ID Allergen Name Allergen Category Reaction Reaction Severity Criticality Documentation Date Start Date Code Code System Note Provider Name and Address Organization Details Recorded Time 7932 clopidogr el medicatio n Not available Not available Not available 10/26/2018 10735 RxNorm Sanjeev Raphael null, [place] - [facility] 9 [...] Available Not Available torsemide 20 mg tablet Take 1 tablet every day by oral route. 2024 active Not Available Not Available Not Avai lable azithromy sophie 250 mg tablet 08/21 completed Not Available Not Available Not Available Coreg 6.25 mg tablet Take 1 tablet twice a day by oral route. 2024 active Not Available Not Available Not Avai lable valacyclo vir 1 gram tablet TAKE 1 [...] t Available levothyro xine 75 mcg tablet TAKE 1 TABLET BY MOUTH EVERY [...] nitroglyc kashif 0.4 mg sublingua l tablet DISSOLVE 1 TABLET UNDER THE TONGUE NEEDED CHEST PAIN active Not Available Not Available [...] completed Not Available Not Available Not Available nebivolol 5 mg tablet Take 1 tablet every [...] Updated DateTime 4 147.32 cm 29.7 kg/m2 22006.1 2 g 74 /min 97 % 97 % 133 mm[Hg] 70 mm[Hg] Sherry Browning [facility] 4 15:48:34 Date Recorded Body height Body mass index (BMI) Body weight Heart rate Oxygen saturation Oxygen saturation in Arterial blood by Pulse oximetry Systolic blood pressure Diastolic blood pressure Provider Name and Address Organization Details Last Updated DateTime 5 147.32 cm 30.1 kg/m2 07899.3 g 75 /min 98 % 98 % 202 mm[Hg] 84 mm[Hg] Leticia Hull [facility] 5 16:00:27 Date Recorded Body height Body mass index (BMI) Body weight Heart rate Oxygen saturation Oxygen saturation in Arterial blood by Pulse oximetry Systolic blood pressure Diastolic blood pressure Provider Name and Address Organization Details Last Updated DateTime 5 147.32 cm 30.2 kg/m2 59486.1 g 72 /min 98 % 98 % 174 mm[Hg] 73 mm[Hg] Sherry Browning [facility] 5 13:59:14 Date Recorded Body height Body mass index (BMI) Body weight Heart rate Oxygen saturation Oxygen saturation in Arterial blood by Pulse oximetry Systolic blood pressure Diastolic blood pressure Provider Name and Address Organization Details Last Updated DateTime 5 147.32 cm 29.9 kg/m2 46023.7 1 g 60 /min 97 % 97 % 158 mm[Hg] 70 mm[Hg] Leticia Hull [facility] 5 15:13:54 Date Recorded Body height Body mass index (BMI) Body weight Heart rate Oxygen saturation Oxygen saturation in Arterial blood by Pulse oximetry Systolic blood pressure Diastolic blood pressure Provider Name and Address Organization Details Last Updated DateTime 4 147.32 cm 30.2 kg/m2 42595.3 8 g 80 /min 98 % 98 % 135 mm[Hg] 65 mm[Hg] Sherry Browning [facility] 4 16:55:17 Social History Question Answer Notes LastModified by [employer] Details LastModified Time Tobacco Smoking Status Former Smoker quit 2 months ago Not Available [facility] 06/09/2020 03:30:40 Live Alone Or With Others? Alone Information not available 10/26/2018 What Was The Date Of Your Most Recent Tobacco Screening? 12/05/2018 [id number] Information not available 06/09/2020 How Many Years Have You Smoked Tobacco? 40 [id number] Information not available 06/09/2020 Sex: Unknown Functional Status Question Answer Note LastModified by [employer] Details LastModified Time Do you or have you ever used smokeless tobacco? Former smokeless tobacco user Information not available 10/12/2020 What is your occupation? retired [id number] Information not available 06/09/2020 Do you or have you ever used e-cigarettes or vape? Never used electronic cigarettes Information not available 10/12/2020 Mental Status None recorded. Family History Relationship [...] SNOMED-CT Code Diagnosis ICD10 Code Diagnosis Note [id number] MD Laura Hess Office [facility] [facility] [address] 09/05/2018 15:45:22 09/05/2018 17:06:42 Pre-surgery testing 372301802 Z01.89 Will obtain Treadmill Myoview Stress Test to look for any ischemia. Has a high [place] Risk score. Has Known CAD and/or CAD [...] look for any ischemia. Has a high [place] Risk score. Has Known CAD and/or CAD risk equivalent . Will get echo to look for any structural heart disease Coronary arteriosclerosis 21888952 I25.10 Has a prior hx of CAD required stent placement x2 over 20 years ago at [facility]. Will review records that was provided. Will obtain Treadmill Myoview Stress Test to look for any ischemia. Has a high [place] Risk score. Has Known CAD and/or CAD risk equivalent . Cannot tolerate ANY statin therapy, ASA, or Plavix. Essential hypertension 23141645 I10 Well controlled on current regimen. Continue. Carcinoma of female breast 310521446 C50.[address] Hawley. Needs surgery. Family his tory of coronary arteriosclerosis 109916947 Z82.49 Her son passed from a [place] at the age of 53. Her father passed from a [place] at the age of 70. Will obtain Treadmill Myoview Stress Test to look for any ischemia. Has a high [place] Risk score. Has Known CAD and/or CAD risk equivalent . Needs maximal medical therapy and risk [place]ati [place]. [id number] MD Laura Hess Office [address] [place] [address] 09/20/2018 11:21:11 09/20/2018 12:21:11 Pre-surgery testing 006464328 Z01.89 stress test is abnormal The patient [...] look for any ischemia. Has a high [place] Risk score. Has Known CAD and/or CAD risk equivalent . Will get echo to look for any structural heart disease Coronary arteriosclerosis 50823740 I25.10 Has a prior hx of CAD required stent placement x2 over 20 years ago at [facility]. Will review records that was provided. Will obtain Treadmill Myoview Stress Test to look for any ischemia. Has a high [place] Risk score. Has Known CAD and/or CAD risk equivalent . Cannot tolerate ANY statin therapy, ASA, or Plavix. Essential hypertension 42817219 I10 Well controlled on current regimen. Continue. Carcinoma of female breast 280145059 C50.[address] Hawley. Needs surgery. Family his tory of coronary arteriosclerosis 545097878 Z82.49 Her son passed from a [place] at the age of 53. Her father passed from a [place] at the age of 70. Will obtain Treadmill Myoview Stress Test to look for any ischemia. Has a high [place] Risk score. Has Known CAD and/or CAD risk equivalent . Needs maximal medical therapy and risk factor modificati on. Angina pectoris 78880193 0 I20.9 Stented co ronary artery 907306261 Z95.5 46315 Israel [facility] [address] [place] [address] 10/29/2018 10:42:18 10/29/2018 11:25:11 Pre-surgery testing 833773886 Z01.89 pt had cABGshe is going for lung resectionl ow risk for moderate risk surgerycon t Metoprolol and statiin Dyspnea on exertion 6084 5006 R06.09 probably due to her left upper lung mass Coronary arteriosclerosis 79243138 I25.10 Has a prior hx of CAD required stent placement x2 over 20 years ago at [facility]. Will review records that was provided. Cannot tolerate ANY statin therapy, ASA, or Plavix.bud l cut down Metoprolol due to diziness Essential hypertension 93932834 I10 Well controlled on current regimen. Continue. Carcinoma of female breast 616567288 C50.[address] Hawley. Needs surgery. Family his tory of coronary arteriosclerosis 823962938 Z82.49 Her son passed from a [place] at the age of 53. Her father passed from a [place] at the age of 70. Needs maximal medical therapy and risk factor modificati on. Angina pectoris 40933538 0 I20.9 Stented co ronary artery 329641729 Z95.5 93335 Adryan Stevens [facility] [address] [place] [address] 12/05/2018 14:08:41 12/05/2018 15:06:02 Pre-surgery testing 651645702 Z01.89 pt had cABGshe is going for lung resectionl ow risk for moderate risk surgerycon t Metoprolol Dyspnea on exertion 6084 5006 R06.09 probably due to her left upper lung mass Coronary arteriosclerosis 85713177 I25.10 Has a prior hx of CAD required stent placement x2 over 20 years ago at [facility]. Will review records that was provided. Cannot tolerate ANY statin therapy, ASA, or Plavix.bud l cut down Metoprolol due to diziness Essential hypertension 95158939 I10 Well controlled on current regimen. Continue. Carcinoma of female breast 196089833 C50.[address] Hawley. Needs surgery. Family his tory of coronary arteriosclerosis 393135276 Z82.49 Her son passed from a [place] at the age of 53. Her father passed from a [place] at the age of 70. Needs maximal medical therapy and risk factor modificati on. Angina pectoris 43762903 0 I20.9 Stented co ronary artery 728951341 Z95.5 Intermitte nt claudication 97533462 I73.9 03278 MD Laura Hess e Office [address] [place] [address] 03/13/2019 14:20:10 03/13/2019 15:53:00 Pre-surgery testing 575459803 Z01.89 pt had cABGshe is going for lung resectionl ow risk for moderate risk surgerycon t Metoprolol Dyspnea on exertion 6084 5006 R06.09 probably due to her left upper lung mass Coronary arteriosclerosis 17043527 I25.10 Has a prior hx of CAD required stent placement x2 over 20 years ago at [facility]. Will review records that was provided. Cannot tolerate ANY statin therapy, ASA, or Plavix.bud billy cut down Metoprolol due to wheexing Essential hypertension 16050754 I10 Well controlled on current regimen. Continue. Carcinoma of female breast 598826781 C50.[address] Hawley. Needs surgery. Family his tory of coronary arteriosclerosis 280722027 Z82.49 Her son passed from a [place] at the age of 53. Her father passed from a [place] at the age of 70. Needs maximal medical therapy and risk factor modificati on. Angina pectoris 67519372 0 I20.9 Stented co ronary artery 126976217 Z95.5 Intermitte nt claudication 31095347 I73.9 99791 MD Laura Hess e Office [address] [place] [address] 04/25/2019 09:28:18 04/25/2019 10:32:54 Dyspnea on exertion 56301335 R06.09 probably due to her left upper lung mass 04/25/19The patient states that her PCP stoped the toprol XL due to SOB. The patient states that her breathing has improved since then. Coronary arteriosclerosis 70424505 I25.10 CABG X 2 done in 09/25/18:L DAYRON to mid LAD,reserv ed saphenous vein graft from aorta to D2. Has a prior hx of CAD required stent placement x2 over 20 years ago at [facility]. Will review records that was provided. Feels she can tolerate Simvastati n better than Atorvastat in. ASA, or Plavix.bud billy cut down Metoprolol due to wheexing. PCP stoped metoprolol Essential hypertension 48936382 I10 Well controlled on current regimen. Continue. 04/25/19 BP 148/90 patient states she has not taking medication today, however will after she can eat. Carcinoma of female breast 027364086 C50.[address] Hawley. Needs surgery. Family his tory of coronary arteriosclerosis 047348695 Z82.49 Her son passed from a [place] at the age of 53. Her father passed from a [place] at the age of 70. Needs maximal medical therapy and risk factor modificati on. Angina pectoris 83908175 0 I20.9 Stented co ronary artery 153404167 Z95.5 CABG X 2 done in 09/25/18:L DAYRON to mid LAD,reserv ed saphenous vein graft from aorta to D2. Intermitte nt claudication 21672715 I73.9 Dyslipidemia 997290968 E 78.5 on rosuvastat in 10 mg but want to change to simvastati n 10/07/18 LDL:63 [id number] MD Laura Pollard Office [address] [facility] [address] 08/21/2019 13:51:23 08/21/2019 14:51:47 Dyspnea on exertion 13900415 R06.09 probably due to her left upper lung mass 04/25/19The patient states that her PCP stoped the toprol XL due to SOB. The patient states that her breathing has improved since then. Coronary arteriosclerosis 90041832 I25.10 CABG X 2 done in 09/25/18:L DAYRON to mid LAD,reserv ed saphenous vein graft from aorta to D2. Has a prior hx of CAD required stent placement x2 over 20 years ago at [facility]. Will review records that was provided. Feels she can tolerate Simvastati n better than Atorvastat in. ASA, or Plavix.bud billy cut down Metoprolol due to wheezing. PCP stoped metoprolol Essential hypertension 89666349 I10 bp 140/80 Carcinoma of female breast 896799951 C50.[address] Hawley. Needs surgery. Family his tory of coronary arteriosclerosis 646914971 Z82.49 Her son passed from a [place] at the age of 53. Her father passed from a [place] at the age of 70. Needs maximal medical therapy and risk factor modificati on. Angina pectoris 20773902 0 I20.9 Stented co ronary artery 881178598 Z95.5 CABG X 2 done in 09/25/18:L DAYRON to mid LAD,reserv ed saphenous vein graft from aorta to D2. Intermitte nt claudication 99797431 I73.9 Dyslipidemia 208045070 E 78.5 Patient now taking ezetimibe. She could not tolerate simvastati n and rosuvastat in 10/07/18 LDL:63 Peripheral vascular disease 683341345 I73.9 with known Iliac stenosis, will plan Right iliac artery stent [id number] MD Laura Pollard Office [address] [facility] [address] 02/27/2020 14:37:40 02/27/2020 15:23:16 Dyspnea on exertion 25910749 R06.09 check echo patient followed by Pulmonary as well 04/25/19The patient states that her PCP stoped the toprol XL due to SOB. The patient states that her breathing has improved since then. Coronary arteriosclerosis 08796627 I25.10 CABG X 2 done in 09/25/18:L DAYRON to mid LAD,reserv ed saphenous vein graft from aorta to D2. occasional chest pains (since CABG , atypical for angina associated with numbness in both arms). Check echo and Holter. consider stress testing next visit Has a prior hx of CAD required stent placement x2 over 20 years ago at [facility]. Will review records that was provided. Feels she can tolerate Simvastati n better than Atorvastat in. ASA, or Plavix.bud billy cut down Metoprolol due to wheezing. PCP stoped metoprolol Essential hypertension 83197522 I10 Well controlled Carcinoma of female breast 808019735 C50.[address] Hawley. Family his tory of coronary arteriosclerosis 709394309 Z82.49 Her son passed from a [place] at the age of 53. Her father passed from a [place] at the age of 70. Needs maximal medical therapy and risk factor modificati on. Angina pectoris 39420557 0 I20.9 Stented co ronary artery 425071152 Z95.5 CABG X 2 done in 09/25/18:L DAYRON to mid LAD,reserv ed saphenous vein graft from aorta to D2. Dyslipidemia 116130433 E 78.5 Patient now taking ezetimibe. She could not tolerate simvastati n and rosuvastat in 10/07/18 LDL:63 Peripheral vascular disease 369411814 I73.9 with known Iliac stenosis, will plan Right iliac artery stent Dizziness 839936207 R42 Check echo before next visit.[facility] k 48 HolterWIll d/c torsemide as she appears euvolemic. May take on as needed basis [id number] MD Laura Pollard Office [address] [facility] [place] [address] 04/03/2020 10:38:33 04/03/2020 11:51:16 Dizziness 921257885 R42 48 Holter monitor showed no events. WIll d/c torsemide as she appears euvolemic. May take on as needed basis Coronary arteriosclerosis 10181381 I25.10 CABG X 2 done in 09/25/18:L DAYRON to mid LAD,reserv ed saphenous vein graft from aorta to D2. occasional chest pains (since CABG , atypical for angina associated with numbness in both arms). Check echo and Holter. consider stress testing next visit Has a prior hx of CAD required stent placement x2 over 20 years ago at [facility]. Will review records that was provided. Feels [...] breathing has improved since then. Essential hypertension 48815783 I10 Well controlled Carcinoma of female breast 272437773 C50.[address] Hawley. Family his tory of coronary arteriosclerosis 400856714 Z82.49 Her son passed from a [place] at the age of 53. Her father passed from a [place] at the age of 70. Needs maximal medical therapy and risk factor modificati on. Angina pectoris 45515473 0 I20.9 Stented co ronary artery 758017703 Z95.5 CABG X 2 done in 09/25/18:L DAYRON to mid LAD,reserv ed saphenous vein graft from aorta to D2. Dyslipidemia 765724167 E 78.5 Patient now taking ezetimibe. She could not tolerate simvastati n and rosuvastat in 10/07/18 LDL:63 Peripheral vascular disease 917371318 I73.9 with known Iliac stenosis, now with worsening claudicati on. will plan peripheral [place] [id number] MD Laura Pollard Office [address] [facility] [place] [address] 04/23/2020 14:58:08 04/23/2020 15:45:59 Dizziness 668062754 R42 48 Holter monitor showed no events. WIll d/c torsemide as she appears euvolemic. May take on as needed basis Peripheral vascular disease 254252955 I73.9 s/p peripheral angiogram with 70% lesion. No interventi on. On maximal medical therapy. exercise encouraged . Coronary arteriosclerosis 77761534 I25.10 CABG X 2 done in 09/25/18:L DAYRON to mid LAD,reserv ed saphenous vein graft from aorta to D2. occasional chest pains (since CABG , atypical for angina associated with numbness in both arms). Check echo and Holter. consider stress testing next visit Has a prior hx of CAD required stent placement x2 over 20 years ago at [facility]. Will review records that was provided. Feels [...] breathing has improved since then. Essential hypertension 39675571 I10 Well controlled Carcinoma of female breast 433001530 C50.[address] Hawley. Family his tory of coronary arteriosclerosis 498239901 Z82.49 Her son passed from a [place] at the age of 53. Her father passed from a [place] at the age of 70. Needs maximal medical therapy and risk factor modificati on. Angina pectoris 87904378 0 I20.9 Stented co ronary artery 279660342 Z95.5 CABG X 2 done in 09/25/18:L DAYRON to mid LAD,reserv ed saphenous vein graft from aorta to D2. Dyslipidemia 501809196 E 78.5 Patient now taking ezetimibe. She could not tolerate simvastati n and rosuvastat in 10/07/18 LDL:63 41424 MD Laura Pollard Office [address] [facility] [address] 10/14/2020 16:22:26 10/14/2020 17:20:49 Dizziness 961398454 R42 48 Holter monitor showed no events. WIll d/c torsemide as she appears euvolemic. May take on as needed basis Peripheral vascular disease 445748058 I73.9 s/p peripheral angiogram with 70% lesion. No interventi on. On maximal medical therapy. exercise encouraged . Coronary arteriosclerosis 70885458 I25.10 CABG X 2 done in 09/25/18:L DAYRON to mid LAD,reserv ed saphenous vein graft from aorta to D2. occasional chest pains (since CABG , atypical for angina associated with numbness in both arms). Check echo and Holter. consider stress testing next visit Has a prior hx of CAD required stent placement x2 over 20 years ago at [facility]. Will review records that was provided. Feels [...] breathing has improved since then. Essential hypertension 98680020 I10 Increase amlodipine today Carcinoma of female breast 038366517 C50.[address] Hawley. Family his tory of coronary arteriosclerosis 466605271 Z82.49 Her son passed from a [place] at the age of 53. Her father passed from a [place] at the age of 70. Needs maximal medical therapy and risk factor modificati on. Angina pectoris 59686414 0 I20.9 Stented co ronary artery 978943391 Z95.5 CABG X 2 done in 09/25/18:L DAYRON to mid LAD,reserv ed saphenous vein graft from aorta to D2. Dyslipidemia 279557815 E 78.5 Patient now taking ezetimibe. She could not tolerate simvastati n and rosuvastat in 10/07/18 LDL:63 10625 MD Laura Hess Office [address] [facility] [address] 10/28/2020 14:10:58 10/28/2020 14:44:27 Dizziness 881175722 R42 48 Holter monitor showed no events. WIll d/c torsemide as she appears euvolemic. May take on as needed basis Peripheral vascular disease 776753180 I73.9 s/p peripheral angiogram with 70% lesion. No interventi on. On maximal medical therapy. exercise encouraged . Coronary arteriosclerosis 98471058 I25.10 CABG X 2 done in 09/25/18:L DAYRON to mid LAD,reserv ed saphenous vein graft from aorta to D2. occasional chest pains (since CABG , atypical for angina associated with numbness in both arms). Check echo and Holter. consider stress testing next visit Has a prior hx of CAD required stent placement x2 over 20 years ago at [facility]. Will review records that was provided. Feels she can tolerate Simvastati n better than Atorvastat in. ASA, or Plavix.bud billy cut down Metoprolol due to wheezing. PCP stoped metoprolol Dyspnea on exertion 60 5006 R06.09 2D echo reviewed patient followed by Pulmonary as well 04/25/19 The patient states that her PCP stoped the toprol XL due to SOB. The patient states that her breathing has improved since then. Essential hypertension 73802835 I10 Will add HCTZ for better BP control Increase Amlodipine 10 mg daily Carcinoma of female breast 666400125 C50.[address] Hawley. Family his tory of coronary arteriosclerosis 736653618 Z82.49 Her son passed from a [place] at the age of 53. Her father passed from a [place] at the age of 70. Needs maximal medical therapy and risk factor modificati on. Angina pectoris 38784766 0 I20.9 Stented co ronary artery 135638528 Z95.5 CABG X 2 done in 09/25/18:L DAYRON to mid LAD,reserv ed saphenous vein graft from aorta to D2. Dyslipidemia 511670602 E 78.5 Patient now taking ezetimibe. She could not tolerate simvastati n and rosuvastat in 10/07/18 LDL:63 [id number] Adryan Stevens MD [facility] [address] [place] [address] 12/28/2020 14:46:58 12/28/2020 15:22:34 Essential hypertension 48142379 I10 Fair control on current regimen Dizziness 625393104 R42 48 holter monitor obtained 03/03/2020 showed no events Improved following discontinu ation of HCTZ and decreasing torsemide to PRN Peripheral vascular disease 325957924 I73.9 Peripheral angiogram 04/08/2020 : Moderate peripheral vascular disease. AAA. Stable, asymptomat ic. Coronary arteriosclerosis 09297502 I25.10 s/p 2V CABG ( 9: QUIGLEY to mid LAD, reserved saphenous vein graft from aorta to D2) Continue maximal medical treatment Carcinoma of female breast 523040788 C50.919 Follows with oncology (Dr. Hawley) Family his tory of coronary arteriosclerosis 911786818 Z82.49 Maximal medical therapy and risk factor modificati on Dyslipidemia 928385969 E 78.5 Needs to keep LDL less than 70, and HDL more than 40. 10/07/2018 LDL 63 Continue Zetia; unable to tolerate statins. Will get fasting lipids for follow-up Atypical chest pain 1025 89262 R07.89 Treadmill Myoview Stress test, has high [place] Risk score. Has Known CAD, or CAD risk equivalent . To look for any ischemia. Abdominal aortic aneurysm 518481008 I71.4 CTA abdomen/pe lvis 04/16/2020 : Infrarenal abdominal aortic ectasia, approachin g size criteria for aneurysm (28x29 mm). 2 mm nonobstrut ing left power pole renal stone. Stable left adrenal nodules, most compatible with benign process such as adenomas. Will continue close monitoring with serial CTAs [id number] MD [facility] [address] [place] [address] 08/11/2021 16:32:23 08/11/2021 17:03:44 Essential hypertension 37877188 I10 Fair control on current regimen Dizziness 458325862 R42 48 holter monitor obtained 03/03/2020 showed no events Improved following discontinu ation of HCTZ and decreasing torsemide to PRN Peripheral vascular disease 809764581 I73.9 Peripheral angiogram 04/08/2020 : Moderate peripheral vascular disease. AAA. Stable, asymptomat ic. Coronary arteriosclerosis 47443071 I25.10 s/p 2V CABG ( 9: QUIGLEY to mid LAD, reserved saphenous vein graft from aorta to D2) Continue maximal medical treatmentO btain echo to evaluate for structural /functiona l disease. Carcinoma of female breast 642193231 C50.919 Follows with oncology (Dr. Hawley) Family his tory of coronary arteriosclerosis 004011893 Z82.49 Maximal medical therapy and risk factor modificati on Dyslipidemia 900183520 E 78.5 Needs to keep LDL less than 70, and HDL more than 40. 10/07/2018 LDL 63 Continue Zetia; unable to tolerate statins. Will get fasting lipids for follow-up Atypical chest pain 1025 14887 R07.89 Treadmill Myoview Stress test was negative Abdominal aortic aneurysm 571840873 I71.4 CTA abdomen/pe lvis 04/16/2020 : Infrarenal abdominal aortic ectasia, approachin g size criteria for aneurysm (28x29 mm). 2 mm nonobstrut ing left power pole renal stone. Stable left adrenal nodules, most compatible with benign process such as adenomas. Will continue close monitoring with serial CTAs 51859 MD [facility] [address] [place] [address] 02/21/2022 10:39:11 02/21/2022 12:01:45 Essential hypertension 80173530 I10 Fair control on current regimen Dizziness 398066156 R42 48 holter monitor obtained 03/03/2020 showed no events Improved following discontinu ation of HCTZ and decreasing torsemide to PRN Peripheral vascular disease 358121707 I73.9 Peripheral angiogram 04/08/2020 : Moderate peripheral vascular disease. AAA. Stable, asymptomat ic. Coronary arteriosclerosis 42496663 I25.10 s/p 2V CABG ( 9: QUIGLEY to mid LAD, reserved saphenous vein graft from aorta to D2) Continue maximal medical treatmentO btain echo to evaluate for structural /functiona l disease. Carcinoma of female breast 524959532 C50.919 Follows with oncology (Dr. Hawley) Family his tory of coronary arteriosclerosis 604093177 Z82.49 Maximal medical therapy and risk factor modificati on Dyslipidemia 137017772 E 78.5 Needs to keep LDL less than 70, and HDL more than 40. Continue Zetia; unable to tolerate statins.Wi ll try on Liqview injection Atypical chest pain 1025 85376 R07.89 Treadmill Myoview Stress test was negative Abdominal aortic aneurysm 221246327 I71.4 CTA abdomen/pe lvis 04/16/2020 : Infrarenal abdominal aortic ectasia, approachin g size criteria for aneurysm (28x29 mm). 2 mm nonobstrut ing left power pole renal stone. Stable left adrenal nodules, most compatible with benign process such as adenomas. Will continue close monitoring with serial CTAs [id number] MD [facility] [address] [place] [address] 08/18/2022 11:30:27 08/18/2022 12:27:51 Essential hypertension 16901540 I10 Fair control on current regimen Dizziness 024028868 R42 better Peripheral vascular disease 305200474 I73.9 Peripheral angiogram 04/08/2020 : Moderate peripheral vascular disease. AAA. Stable, asymptomat ic. Coronary arteriosclerosis 28530569 I25.10 s/p 2V CABG ( 9: QUIGLEY to mid LAD, reserved saphenous vein graft from aorta to D2) Continue maximal medical treatmentO btain echo to evaluate for structural /functiona l disease. Carcinoma of female breast 318856546 C50.919 Follows with oncology (Dr. Hawley) Family his tory of coronary arteriosclerosis 720285444 Z82.49 Maximal medical therapy and risk factor modificati on Dyslipidemia 973319294 E 78.5 Needs to keep LDL less than 70, and HDL more than 40. Continue Zetia; unable to tolerate statins.Wi ll try on Liqview injection Atypical chest pain 1025 43505 R07.89 Treadmill Myoview Stress test was negative 69197 Adryan Stevens MD [facility] [address] [place] [address] 02/08/2023 15:26:49 02/08/2023 16:29:52 Essential hypertension 05876461 I10 Fair control on current regimen Dizziness 363794380 R42 better Peripheral vascular disease 731255000 I73.9 Peripheral angiogram 04/08/2020 : Moderate peripheral vascular disease. AAA. Stable, asymptomat ic. Coronary arteriosclerosis 97442612 I25.10 s/p 2V CABG ( 9: QUIGLEY to mid LAD, reserved saphenous vein graft from aorta to D2) Continue maximal medical treatmentO btain echo to evaluate for structural /functiona l disease. Carcinoma of female breast 926684961 C50.919 Follows with oncology (Dr. Hawley) Family his tory of coronary arteriosclerosis 431887706 Z82.49 Maximal medical therapy and risk factor modificati on Dyslipidemia 022176369 E 78.5 Needs to keep LDL less than 70, and HDL more than 40. Continue Zetia; unable to tolerate statins.Wi ll try on Liqview injection Atypical chest pain 1025 81797 R07.89 Treadmill Myoview Stress test was negative 14386 Adryan Stevens MD [facility] [address] [place] [address] 08/15/2023 15:23:56 08/15/2023 16:07:03 Essential hypertension 10762190 I10 Fair control on current regimen Peripheral vascular disease 226948137 I73.9 Peripheral angiogram 04/08/2020 : Moderate peripheral vascular disease. AAA. now with painWill get KATH's Coronary arteriosclerosis 18013351 I25.10 s/p 2V CABG ( 9: QUIGLEY to mid LAD, reserved saphenous vein graft from aorta to D2) Continue maximal medical treatmentO btain echo to evaluate for structural /functiona l disease. Carcinoma of female breast 800245788 C50.919 Follows with oncology (Dr. Hawley) Family his tory of coronary arteriosclerosis 008697055 Z82.49 Maximal medical therapy and risk factor modificati on Dyslipidemia 803604239 E 78.5 Needs to keep LDL less than 70, and HDL more than 40. Continue Zetia; unable to tolerate statins.Wi ll try on Liqview injection [id number] Adryan Stevens MD [facility] [address] [place] [address] 03/12/2024 16:35:48 03/12/2024 17:33:43 Essential hypertension 78901331 I10 Fair control on current regimen Peripheral vascular disease 229050815 I73.9 Peripheral angiogram 04/08/2020 : Moderate peripheral vascular disease. AAA. now with painWill get KATH's Coronary arteriosclerosis 48244105 I25.10 s/p 2V CABG ( 9: QUIGLEY to mid LAD, reserved saphenous vein graft from aorta to D2) Continue maximal medical treatmentO btain echo to evaluate for structural /functiona l disease. Carcinoma of female breast 650442137 C50.919 Follows with oncology (Dr. Hawley) Family his tory of coronary arteriosclerosis 958074944 Z82.49 Maximal medical therapy and risk factor modificati on Dyslipidemia 721289792 E 78.5 Needs to keep LDL less than 70, and HDL more than 40. Continue Zetia; unable to tolerate statins.wa s on Liqviio injection , but had side effect, she stopped it [id number] Adryan Stevens MD [facility] [address] [place] [address] 09/17/2024 15:11:01 09/17/2024 16:21:59 Essential hypertension 20109074 I10 Fair control on current regimen Peripheral vascular disease 867645320 I73.9 Peripheral angiogram 04/08/2020 : Moderate peripheral vascular disease. AAA. Coronary arteriosclerosis 62286527 I25.10 s/p 2V CABG ( 9: QUIGLEY to mid LAD, reserved saphenous vein graft from aorta to D2) Continue maximal medical treatment Carcinoma of female breast 072339695 C50.919 Follows with oncology (Dr. Hawley) Family his tory of coronary arteriosclerosis 283147435 Z82.49 Maximal medical therapy and risk factor modificati on Dyslipidemia 781576408 E 78.5 Needs to keep LDL less than 70, and HDL more than 40. Continue Zetia; unable to tolerate statins.court s on Liqviio injection , but had side effect, she stopped it Atypical chest pain 1025 37090 R07.89 [id number] Adryan Stevens MD [facility] [place] [address] 10/19/2024 13:48:50 10/19/2024 14:09:58 Essential hypertension 32856123 I10 Fair control on current regimen Peripheral vascular disease 965175218 I73.9 Peripheral angiogram 04/08/2020 : Moderate peripheral vascular disease. AAA. Coronary arteriosclerosis 67266184 I25.10 s/p 2V CABG ( 9: QUIGLEY to mid LAD, reserved saphenous vein graft from aorta to D2) Continue maximal medical treatment Carcinoma of female breast 676113455 C50.919 Follows with oncology (Dr. Hawley) Family his tory of coronary arteriosclerosis 007719164 Z82.49 Maximal medical therapy and risk factor modificati on Dyslipidemia 890771767 E 78.5 Needs to keep LDL less than 70, and HDL more than 40. Continue Zetia; unable to tolerate statins.court pichardo on Liqviio injection , but had side effect, she stopped it [id number] Adryan Stevens MD [facility] [place] [address] 01/04/2025 15:04:22 01/04/2025 15:36:18 Essential hypertension 98781926 I10 Not well controlled , and she has side effects from BystolicWi ll change to Coreg 6.25 Peripheral vascular disease 123842870 I73.9 Peripheral angiogram 04/08/2020 : Moderate peripheral vascular disease. AAA. Coronary arteriosclerosis 06564628 I25.10 s/p 2V CABG ( 9: QUIGLEY to mid LAD, reserved saphenous vein graft from aorta to D2) Continue maximal medical treatment Carcinoma of female breast 708330593 C50.919 Follows with oncology (Dr. Hawley) Family his tory of coronary arteriosclerosis 648498244 Z82.49 Maximal medical therapy and risk factor modificati on Dyslipidemia 945773134 E 78.5 Needs to keep LDL less than 70, and HDL more than 40. Continue Zetia; unable to tolerate statins.wa s on Liqvio injection , but had side effect, she stopped it Edema of l ower extremity 835804594 R60.0 Obtain echo to evaluate for structural /functiona l disease. Health Concerns Section Related Observation LastModified by Organization Detai ls LastModified Time None Recorded Concern Status LastModified by Organization Details LastModified Time None Recorded Advance Directives Directive None Recorded Payers Insurance Date Sequence Insurance Name Policy Number Policy Erickson Covered Member ID Erickson Member ID Guarantor Name 09/17/2024 2 FOR LIFE ( - MEDICARE SUPPLEMENT) Grecia Quinn [id number] Grecia Quinn 01/09/2025 1 [place] Grecia L Quinn [id number] Grecia Quinn 01/09/2025 2 FOR LIFE ( - MEDICARE SUPPLEMENT) Grecia Quinn [id number] Grecia Quinn Notes Date Note Type Note Provider Name and Address Organization Details Recorded Time 4 text/html 08/15/23CC : Cardiac follow up, dyspnea on [id number] women with a past medical history of [...] placement x2 over 20 years ago at [facility]. *Had CATH done in 09/22/18 revealed severe coronary artery disease with disease noted in the LAD with a severe in stent restenosis,normal LV systolic function,significant disease of right common iliac artery . She has a strong family hx of heart disease on her fathers side. Her son passed from a [place] at the age of 53. Her father passed from a [place] at the age of 70. Results from this visit, or from the past:PT/INR 04-03-2020 PT 13.0 INR 0.95 PTT 33BMP 04/03/2020 NA 139 K 3.8 CH 104 CO2 25 GL 112 BUN 21 CR 0.8 CA 9.0CBC 04/03/2020 WBC 5.5 RBC 4.49 HGB 13.0 HCT 40.4 PLT 7095109/17/2019 : PT 12.0,INR 0.902 ; Na 138,K 3.9,Cl99,Co2 29,BUN 23,Creati 0.90,Glucose 151,Ca 9.1 CBC : WBC 6.6,RBC 4.69,HGB 13.7,HCT 42.5,PLT 9102910/10/18: Na 138 ,K 3.6, CL 104, CO2 24, GLU 101, BUN 13, CR 0.8,10/07/18: PT 14.0, INR 1.08,PTT : HB 11.0, HT 34.403/10/23: TC 121 ,TG 95 ,HDL 39 ,LDL 9663-96-3708SIUWU TYPE O POSCBC Hgb 11.0, PLT 380chem 10/10/18 k 3.6, cr0.802 FACTOR XA HEPARIN 0.21abo group + rh type, blood 68-90-9482FQXFG TYPE O POS09/23/18: CA 4.8TSH, serum or plasma 22-07-6210XCI 1.: TSH 0.861lipid panel, blood 44-12-426283/01/19: Na 138, K 3.8 ,CL 105 ,CO2 26, GLU 116 , BUN 19, CR 0.60, TC 261 ,TG 61, HDL 59,LDL 148 ,CBC w/ diff 18-19-797732/01/19: HB 13.8, HT 42.63-NSR 02/27/20 EKG: Low voltage, chest leads. Poor R progression in chest leads.08/21/2019 : EKG : Low voltage in chest leads ,PoorR progression in chest leads10/14/20-NSREKG (08): NSRpoor R progression, NSST changeselectrocardiogram 18-01-5190cmrbcx sinus Rhythm poor R progression,NSST changes ,Prolonged QT when compared with ECG of 09/28/2018,premature atrial complexes no longer presentEKG, 09/05/18: Sinus Rhythm. nonspecific T wave abnormality. Abnormal EKG. [facility] Ct, Angiogram, Chest, W/ Contrast 1) stable [...] and PVC's.Last stress test was done at [facility] over 2 years ago.Had CATH done [...] systolic function. Abnormal stress rest. ArtifactUS, echocardiogram [id number], Chest 04/16/20:evolving post treatment changes with unchanged [...] test. Artifact noted. LVEF 76%. SANDRA ESCOBAR [place], [place] - [facility] 08/15/2023 16:01:17 4 text/html 03/12/24CC : Cardiac follow [id number] women with a past medical history of [...] placement x2 over 20 years ago at [facility]. *Had CATH done in 09/22/18 revealed severe coronary artery disease with disease noted in the LAD with a severe in stent restenosis,normal LV systolic function,significant disease of right common iliac artery . She has a strong family hx of heart disease on her fathers side. Her son passed from a [place] at the age of 53. Her father passed from a [place] at the age of 70. Results from this visit, or from the past:PT/INR 04-03-2020 PT 13.0 INR 0.95 PTT 33BMP 04/03/2020 NA 139 K 3.8 CH 104 CO2 25 GL 112 BUN 21 CR 0.8 CA 9.0CBC 04/03/2020 WBC 5.5 RBC 4.49 HGB 13.0 HCT 40.4 PLT 8636409/17/2019 : PT 12.0,INR 0.902 ; Na 138,K 3.9,Cl99,Co2 29,BUN 23,Creati 0.90,Glucose 151,Ca 9.1 CBC : WBC 6.6,RBC 4.69,HGB 13.7,HCT 42.5,PLT 29973: Na 138 ,K 3.6, CL 104, CO2 24, GLU 101, BUN 13, CR 0.8,10/07/18: PT 14.0, INR 1.08,PTT : HB 11.0, HT 34.403: TC 121 ,TG 95 ,HDL 39 ,LDL 4283-83-6113NKBVV TYPE O POSCBC Hgb 11.0, PLT 380chem 10/10/18 k 3.6, cr0.802 FACTOR XA HEPARIN 0.21abo group + rh type, blood 37-69-8637VHEJT TYPE O POS09/23/18: CA 4.8TSH, serum or plasma 89-38-4388CIQ 1.: TSH 0.861lipid panel, blood 32-98-316554/01/19: Na 138, K 3.8 ,CL 105 ,CO2 26, GLU 116 , BUN 19, CR 0.60, TC 261 ,TG 61, HDL 59,LDL 148 ,CBC w/ diff 96-44-191437/01/19: HB 13.8, HT 42.63-NSR 02/27/20 EKG: Low voltage, chest leads. Poor R progression in chest leads.08/21/2019 : EKG : Low voltage in chest leads ,PoorR progression in chest leads10/14/20-NSREKG (): NSRpoor R progression, NSST changeselectrocardiogram 57-88-5393fvrvgd sinus Rhythm poor R progression,NSST changes ,Prolonged QT when compared with ECG of 09/28/2018,premature atrial complexes no longer presentEKG, 09/05/18: Sinus Rhythm. nonspecific T wave abnormality. Abnormal EKG. [facility] [place]: Ct, Angiogram, Chest, W/ Contrast 1) stable [...] and PVC's.Last stress test was done at [facility] over 2 years ago.Had CATH done [...] systolic function. Abnormal stress rest. ArtifactUS, echocardiogram [id number], Chest 04/16/20:evolving post treatment changes with unchanged [...] Artifact noted. LVEF 76%. Adryan Stevens MD [address] [place], [address], [place] - [facility] 03/12/2024 17:29:59 5 text/html 09/17/24CC : Cardiac follow [id number]-rme women with a past medical history of [...] placement x2 over 20 years ago at [facility]. *Had CATH done in 09/22/18 revealed severe coronary artery disease with disease noted in the LAD with a severe in stent restenosis,normal LV systolic function,significant disease of right common iliac artery . She has a strong family hx of heart disease on her fathers side. Her son passed from a [place] at the age of 53. Her father passed from a [place] at the age of 70. Results from this visit, or from the past:PT/INR 04-03-2020 PT 13.0 INR 0.95 PTT 33BMP 04/03/2020 NA 139 K 3.8 CH 104 CO2 25 GL 112 BUN 21 CR 0.8 CA 9.0CBC 04/03/2020 WBC 5.5 RBC 4.49 HGB 13.0 HCT 40.4 PLT 16245 : PT 12.0,INR 0.902/03/2020 ; Na 138,K 3.9,Cl99,Co2 29,BUN 23,Creati 0.90,Glucose 151,Ca 9.1 CBC : WBC 6.6,RBC 4.69,HGB 13.7,HCT 42.5,PLT 90051/01/23: Na 138 ,K 3.6, CL 104, CO2 24, GLU 101, BUN 13, CR 0.8,10/07/18: PT 14.0, INR 1.08,PTT : HB 11.0, HT 34.403: TC 121 ,TG 95 ,HDL 39 ,LDL 8507-50-2606UYWGO TYPE O POSCBC Hgb 11.0, PLT 380chem 10/10/18 k 3.6, cr0.802 FACTOR XA HEPARIN 0.21abo group + rh type, blood 12-84-2526DWJOY TYPE O POS09/23/18: CA 4.8TSH, serum or plasma 23-57-6271LQU 1.: TSH 0.861lipid panel, blood 53-84-636412/01/19: Na 138, K 3.8 ,CL 105 ,CO2 26, GLU 116 , BUN 19, CR 0.60, TC 261 ,TG 61, HDL 59,LDL 148 ,CBC w/ diff : HB 13.8, HT 42.63-NSR 02/27/20 EKG: Low voltage, chest leads. Poor R progression in chest leads.08/21/2019 : EKG : Low voltage in chest leads ,PoorR progression in chest leads10/14/20-NSREKG (08): NSRpoor R progression, NSST changeselectrocardiogram 17-78-5978slhgqj sinus Rhythm poor R progression,NSST changes ,Prolonged QT when compared with ECG of 09/28/2018,premature atrial complexes no longer presentEKG, 09/05/18: Sinus Rhythm. nonspecific T wave abnormality. Abnormal EKG. [facility] [place] Ct, Angiogram, Chest, W/ Contrast 1) stable [...] and PVC's.Last stress test was done at [facility] over 2 years ago.Had CATH done [...] systolic function. Abnormal stress rest. ArtifactUS, echocardiogram [id number], Chest 04/16/20:evolving post treatment changes with unchanged [...] noted. LVEF 76%. Adryan Stevens MD [address] [place], [address], [facility] - [facility] 09/17/2024 16:19:11 5 text/html 10/19/14CC : Cardiac follow [id number]-teny-hpn women with a past medical history of CAD s/p CABG (09/25/18), HLD, DM is here for 1 month cardiac follow up. She was last seen in the clinic on 09/17/24, since then she did no start on Bystolic as insurance did not cover thatShe denies ER visits and hospitalizations since she was last seen. Today reports:no ccDenies chest pain.Denies shortness of breath at rest. Has mild dyspnea on exertion.No orthopnea. No PNDs.Denies heart palpitations.Denies dizziness. Denies syncope or near syncope.No ankle or leg edema.No major bleeding events.No reported side effects from medications. Taking medications as prescribed with no missed doses.Denies snoring, daytime somnolence and AM headache.*Last LDL was 86 done on 10/14/22.Pt dose not takes any statins. Previously:*EKG 09/17/24: Sinus rhythm, P; normal, QRS; septal infarct. QS in V2. R<0.15 mV in V3, low voltage in precordial leads, ST-T; normal, conclusion: abnormal ECG. *Ct, Angiogram, Chest + Abdomen + Pelvis, W/wo [...] kidney demonstrating indeterminate hounsfield units but appears unchanged since 08/26/2022. 5. Unchanged 3.3 cm infrarenal abdominal aortic aneurysm. 6. 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 *Brain MRI 11/14/23:No evidence of intracranial metastasis. [...] placement x2 over 20 years ago at [facility]. *Had CATH done in 09/22/18 revealed severe coronary artery disease with disease noted in the LAD with a severe in stent restenosis,normal LV systolic function,significant disease of right common iliac artery . She has a strong family hx of heart disease on her fathers side. Her son passed from a [place] at the age of 53. Her father passed from a [place] at the age of 70. Results from this visit, or from the past:PT/INR 04-03-2020 PT 13.0 INR 0.95 PTT 33BMP 04/03/2020 NA 139 K 3.8 CH 104 CO2 25 GL 112 BUN 21 CR 0.8 CA 9.0CBC 04/03/2020 WBC 5.5 RBC 4.49 HGB 13.0 HCT 40.4 PLT 6388009/17/2019 : PT 12.0,INR 0.902 ; Na 138,K 3.9,Cl99,Co2 29,BUN 23,Creati 0.90,Glucose 151,Ca 9.1 CBC : WBC 6.6,RBC 4.69,HGB 13.7,HCT 42.5,PLT 51001: Na 138 ,K 3.6, CL 104, CO2 24, GLU 101, BUN 13, CR 0.8,10/07/18: PT 14.0, INR 1.08,PTT : HB 11.0, HT 34.403: TC 121 ,TG 95 ,HDL 39 ,LDL 7761-18-0266AKFQZ TYPE O POSCBC Hgb 11.0, PLT 380chem 10/10/18 k 3.6, cr0.802 FACTOR XA HEPARIN 0.21abo group + rh type, blood 13-27-4834KAMNL TYPE O POS09/23/18: CA 4.8TSH, serum or plasma 83-59-3599KAK 1.: TSH 0.861lipid panel, blood 99-10-462699/01/19: Na 138, K 3.8 ,CL 105 ,CO2 26, GLU 116 , BUN 19, CR 0.60, TC 261 ,TG 61, HDL 59,LDL 148 ,CBC w/ diff 23-72-977962/01/19: HB 13.8, HT 42.63-NSR 02/27/20 EKG: Low voltage, chest leads. Poor R progression in chest leads.08/21/2019 : EKG : Low voltage in chest leads ,PoorR progression in chest leads10/14/20-NSREKG (): NSRpoor R progression, NSST changeselectrocardiogram 53-41-3764gtaxke sinus Rhythm poor R progression,NSST changes ,Prolonged QT when compared with ECG of 09/28/2018,premature atrial complexes no longer presentEKG, 09/05/18: Sinus Rhythm. nonspecific T wave abnormality. Abnormal EKG. [facility] [place] Ct, Angiogram, Chest, W/ Contrast 1) stable [...] and PVC's.Last stress test was done at [facility] over 2 years ago.Had CATH done [...] systolic function. Abnormal stress rest. ArtifactUS, echocardiogram [id number], Chest 04/16/20:evolving post treatment changes with unchanged [...] LVEF 76%. Adryan Stevens MD [address] [place], [address], [facility] 10/19/2024 14:24:28 5 text/html 01/04/25CC : Cardiac follow up, [id number] women with a past medical history of CAD s/p CABG (09/25/18), HLD, DM is here for 3 month cardiac follow up with labs results She was last seen in the clinic on 10/19/24, since then she has side effects from Bystolic with FatigueShe denies ER visits and hospitalizations since she [...] on 10/14/22.Pt dose not takes any statins. 11/19/24 : WBC 5.45 Total Hb,POC 10.4HCT 31.7 PLT 207 , NA 136 CR 1.00 Previously:*EKG 09/17/24: Sinus rhythm, P; normal, QRS; septal infarct. QS in V2. R<0.15 mV in V3, low voltage in precordial leads, ST-T; normal, conclusion: abnormal ECG. *Ct, Angiogram, Chest + Abdomen + Pelvis, W/wo [...] kidney demonstrating indeterminate hounsfield units but appears unchanged since 08/26/2022. 5. Unchanged 3.3 cm infrarenal abdominal aortic aneurysm. 6. 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 *Brain MRI 11/14/23:No evidence of intracranial metastasis. [...] placement x2 over 20 years ago at [facility]. *Had CATH done in 09/22/18 revealed severe coronary artery disease with disease noted in the LAD with a severe in stent restenosis,normal LV systolic function,significant disease of right common iliac artery . She has a strong family hx of heart disease on her fathers side. Her son passed from a [place] at the age of 53. Her father passed from a [place] at the age of 70. Results from this visit, or from the past:PT/INR 04-03-2020 PT 13.0 INR 0.95 PTT 33BMP 04/03/2020 NA 139 K 3.8 CH 104 CO2 25 GL 112 BUN 21 CR 0.8 CA 9.0CBC 04/03/2020 WBC 5.5 RBC 4.49 HGB 13.0 HCT 40.4 PLT 29098 : PT 12.0,INR 0.9009/14/2019 ; Na 138,K 3.9,Cl99,Co2 29,BUN 23,Creati 0.90,Glucose 151,Ca 9.1 CBC : WBC 6.6,RBC 4.69,HGB 13.7,HCT 42.5,PLT 52274: Na 138 ,K 3.6, CL 104, CO2 24, GLU 101, BUN 13, CR 0.8,10/07/18: PT 14.0, INR 1.08,PTT : HB 11.0, HT 34.403: TC 121 ,TG 95 ,HDL 39 ,LDL [id number] TYPE O POSCBC Hgb 11.0, PLT 380chem 10/10/18 k 3.6, cr0.802 FACTOR XA HEPARIN 0.21abo group + rh type, blood [id number] TYPE O POS09/23/18: CA 4.8TSH, serum or plasma [id number] 1.: TSH 0.861lipid panel, blood : Na [...] leads10/14/20-NSREKG (): NSRpoor R progression, NSST changeselectrocardiogram [id number] sinus Rhythm poor R progression,NSST changes ,Prolonged QT when compared with ECG of 09/28/2018,premature atrial complexes no longer presentEKG, 09/05/18: Sinus Rhythm. nonspecific T wave abnormality. Abnormal EKG. [facility] [place]: Ct, Angiogram, Chest, W/ Contrast 1) stable [...] and PVC's.Last stress test was done at [facility] over 2 years ago.Had CATH done [...] systolic function. Abnormal stress rest. ArtifactUS, echocardiogram [id number], Chest 04/16/20:evolving post treatment changes with unchanged [...] Artifact noted. LVEF 76%. Adryan Stevens MD [address] [place], [address], [facility] 01/04/2025 15:32:44 OBGyn Episode No OBEpisode recorded.
--- OUTSIDE RECORDS SUMMARY | 2025-01-11 13:21 | XMS_ITS | Encounter Summary ---
Author Organization [facility] Facility Care Team Providers Care Canning Machine Operator Name Role Phone Kaushik Gonzalez DO Primary Care Provider [phone] Kaushik Gonzalez DO Primary Care Provider [phone] Kaushik Gonzalez DO Unavailable Kaushik Gonzalez DO Unavailable Navjot Danielson MD Unavailable [phone] Checo Hawley MD Unavailable [phone] Rinku Hoffmann MD Unavailable [phone] Adryan Stevens MD Unavailable [phone] Romel Valerio MD PhD Unavailable [phone] Rachel Ramirez MD Unavailable [phone] Ivis Okeefe MD Unavailable [phone] Chandni Vang Primary Care Provider Unavailabl e Kaushik Gonzalez DO Primary Care Provider [phone] Chandni Vang NP Primary Care Provider [phone] Encounter Details Date Type Department Care Team (Latest Contact Info) Description 09/10/2018 Orders Only [facility] CLINCONV ProviderNahum MD [address] [place] [id number] Social History Tobacco Use Types Packs/Day Years Used Date Smoking Tobacco: Every Day Smokeless Tobacco: Never Alcohol Use Standard Drinks/Week Comments Yes 0 (1 standard drink = 0.6 oz pur e alcohol) Comments Unknown Sex and Gender Information Value Date Recorded Sex Assigned at Not on file Legal Sex 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 us Historical Provider Final Res ult documented in this encounter Visit Diagnoses Not on filedocumented in this encounter Additional Health Concerns Infection Onset Date Last Indicated Resolved Time COVID: Suspected 09/06/2021 09/06/2021 09/06/2021 10:47 PM CONCHE OPERATOR documented as of this encounter Care Teams Canning Machine Operator Relationship Specialty Start Date End Date Kaushik Gonzalez DO PCP - General Internal Medicine 08/09/18 09/20/18 Kaushik Gonzalez DO PCP - General 09/21/18 01/23/23 Chandni Vang PCP - General Family Medicine 01/24/23 02/27/23 Kaushik Gonzalez DO PCP - General Internal Medicine 02/28/23 08/21/23 Chandni Vang NP [address] [place] [address] PCP - General Nurse Practitioner 08/22/23 Kaushik Gonzalez DO Internal Medicine 09/21/18 02/27/23 Kaushik Gonzalez DO Referring Physician Internal Medicine 08/09/18 Navjot Danielson MD Cardiothoracic Surgery 08/21/18 Checo Hawley MD Medical Oncologist/Hematologis t Hematology and Oncology 08/31/18 04/03/22 Rinku Hoffmann MD Radiation Oncologist Radiation Oncology 07/28/21 Adryan Stevens MD Consulting Physician Cardiovascular Disease 09/02/21 Romel Valerio MD PhD [address] [place] [address] MEDICAL ONCOLOGY, [place] [id number] Consulting Physician Medical Oncology 04/04/22 Rachel Ramirez MD [address] [place] [address] MEDICAL ONCOLOGY, [address] [address] Consulting Physician Pulmonary Disease 04/20/22 Ivis Okeefe MD [address] [place] [address] MEDICAL ONCOLOGY, [address] [address] Referring Physician Dermatology 08/30/22 documented as of this encounter
--- OUTSIDE RECORDS SUMMARY | 2025-01-11 13:21 | XMS_ITS | Referral Summary ---
Author Organization [facility] [address] [place] [address] Care Team Providers Care Block Paver Name Role Phone Kaushik Gonzalez Unavailable Navjot Danielson MD Unavailable [phone] Rinku Hoffmann MD Unavailable [phone] Adryan Stevens MD Unavailable [phone] Romel Valerio MD PhD Unavailable [phone] Rachel Ramirez MD Unavailable [phone] Ivis Okeefe MD Unavailable [phone] Chandni Vang NP Primary Care Provider Encounters Date Type Department Care Team Description 11/19/2024 2:15 PM CDT Clinical Support [facility] [address] [place] [address] Malignant neoplasm of overlapping sites of left lung (HCC) 11/19/2024 2:30 PM CDT Office Visit [place] [facility] Oncology [address] [facility] [address] [place] [id number] Romel Valerio MD PhD Malignant neoplasm of overlapping sites of left lung (HCC) (Primary Dx); 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) 11/13/2024 2:08 PM CDT - 11/13/2024 11:59 PM CDT Hospital Encounter [facility] [address] [place] [address] Malignant neoplasm of overlapping sites of left lung (HCC) Discharge Disposition: Discharge to home or self care 11/13/2024 2:09 PM CDT - 11/13/2024 11:59 PM CDT Hospital Encounter [place] [address] [place] [address] Malignant neoplasm of overlapping sites of left lung (HCC) Discharge Disposition: Discharge to home or self care from Last 3 Months Allergies Active Allergy Reactions Criticality Noted Date Comments Fluticasone Propion-Salmeterol Other (See comments) Low 07/28/2020 Mouth sores Other Other (See comments) Low 03/21/2022 Skin breakout from paper mask Clopidogrel Hives Medium 08/16/2018 Tiotropium [place] Hives Medium 04/02/2019 Medications denosumab (PROLIA) 60 mg/mL syringe Inject under the skin every 6 (six) months Every 6 months. 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 022 Overview (09/01/2021): Added automatically from request for surgery [id number] Overweight 07/05/2021 Cigarette nicotine dependence in remission [...] on file Legal Sex Female 4:07 AM 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 [employer] 02/06/2027 [id number] / / [id number] Procedures Procedure Name Priority Date/Time Associated Diagnosis [...] was last reviewed 2021. Testing performed by: [address] [address] Blood 11/19/2024 2:09 PM CDT 11/19/2024 2:17 PM CDT us Romel Valerio MD PhD LAB BLOOD ORDERABLES Final Result ABDIEL [address] [facility] Department [place] [address] * Differential, auto (11/19/2024 2:09 PM CDT) Neutrophil abs 3.68 1.50 - 6.50 K/cumm Comment:Testing performed by : [address] [address] Imm gran abs 0.02 0.00 - 0.10 K/cumm ABDIEL Comment:Testing performed by : [address] [address] Lymphocyte abs 1.04 0.80 - 3.30 K/cumm ABDIEL Comment:Testing performed by : [address] [address] Monocyte abs 0.57 0.20 - 0.80 K/cumm ABDIEL Comment:Testing performed by : [address] [address] Eosinophil abs 0.12 0.00 - 0.50 K/cumm ABDIEL Comment:Testing performed by : [address] [address] Basophil abs 0.02 0.00 - 0.10 K/cumm ABDIEL Comment:Testing performed by : [address] [address] Neutrophil pct 67.4 % [facility] Comment: Interpretive Data Percent cell count reference ranges are not reported, since discordance with absolute values may lead to misinterpretation of CBC data. Current Interpretive Data was last revised on 2017. Testing performed by: [address] [address] Imm gran pct 0.4 % [facility] Comment: Interpretive Data Percent cell count reference ranges are not reported, since discordance with absolute values may lead to misinterpretation of CBC data. Current Interpretive Data was last revised on 2017. Testing performed by: [address] [address] Lymphocyte pct 19.1 % [facility] Comment: Interpretive Data Percent cell count reference ranges are not reported, since discordance with absolute values may lead to misinterpretation of CBC data. Current Interpretive Data was last revised on 2017. Testing performed by: [address] [address] Monocyte pct 10.5 % [facility] Comment: Interpretive Data Percent cell count reference ranges are not reported, since discordance with absolute values may lead to misinterpretation of CBC data. Current Interpretive Data was last revised on 2017. Testing performed by: [address] [address] Eosinophil pct 2.2 % [facility] Comment: Interpretive Data Percent cell count reference ranges are not reported, since discordance with absolute values may lead to misinterpretation of CBC data. Current Interpretive Data was last revised on 2017. Testing performed by: [address] [address] Basophil pct 0.4 % [facility] Comment: Interpretive Data Percent cell count reference ranges are not reported, since discordance with absolute values may lead to misinterpretation of CBC data. Current Interpretive Data was last revised on 2017. Testing performed by: [address] [address] Blood 11/19/2024 2:09 PM CDT 11/19/2024 2:17 PM CDT us Romel Valerio MD PhD LAB BLOOD ORDERABLES Final Result [facility]EL [address] [facility] Department [place] [address] * (ABNORMAL) CBC with auto differential (11/19/2024 2:09 PM CDT) WBC 5.45 3.80 - 9.90 K/cumm Comment:Testing performed by : [address] [address] Hgb 10.4(L) 11.9 - 15.5 g/dL ABDIEL Comment:Testing performed by : [address] [address] Hct 31.7(L) 35.6 - 45.5 % ABDIEL Comment:Testing performed by : [address] [address] Plt 207 150 - 400 K/cumm ABDIEL Comment:Testing performed by : [address] [address] MPV 9.1 9.1 - 12.3 fL ABDIEL Comment:Testing performed by : [address] [address] RBC 3.85(L) 3.90 - 5.20 M/cumm ABDIEL Comment:Testing performed by : [address] [address] MCV 82.3 81.3 - 96.4 fL ABDIEL Comment:Testing performed by : [address] [address] MCH 27.0(L) 27.1 - 33.3 pg ABDIEL WALKER Comment:Testing performed by : [address] [address] MCHC 32.8 32.3 - 35.7 g/dL ABDIEL WALKER Comment:Testing performed by : [address] [address] RDW CV 16.2(H) 11.1 - 14.9 % [facility]BDIEL WALKER Comment:Testing performed by : [address] [address] RDW SD 47.9 35.7 - 48.1 fL ABDIEL WALKER Comment:Testing performed by : [address] [address] NRBC abs 0.00 0.00 - 0.01 K/cumm ABDIEL WALKER Comment:Testing performed by : [address] [address] ANC Prelim 3.68 1.50 - 6.50 K/cumm ABDIEL WALKER Comment: Interpretive Data The rapid ANC is a preliminary automated count and may vary from the final ANC (Neut Abs) reported in the WBC differential that follows. Current interpretive data was last revised 2024. Testing performed by: [address] [address] Blood 11/19/2024 2:09 PM CDT 11/19/2024 2:17 PM CDT us Romel Valerio MD PhD LAB BLOOD ORDERABLES Final Result ABDIEL [facility] Department [place] [address] * (ABNORMAL) Comprehensive metabolic panel (11/19/2024 2:09 PM CDT) Sodium 136 135 - 145 mmol/L Comment:Testing performed by : [address] [address] Potassium, pl 3.9 3.3 - 4.9 mmol/L ABDIEL WALKER Comment:Testing performed by : [address] [address] Chloride 101 97 - 110 mmol/L ABDIEL WALKER Comment:Testing performed by : [address] [address] CO2 24 22 - 32 mmol/L ABDIEL WALKER Comment:Testing performed by : [address] [address] Anion gap 11 2 - 15 mmol/L ABDIEL Comment:Testing performed by : [address] [address] BUN 28(H) 6 - 25 mg/dL ABDIEL Comment:Testing performed by : [address] [address] Creatinine 1.00 0.60 - 1.10 mg/dL ABDIEL Comment:Testing performed by : [address] [address] Glucose 103 70 - 199 mg/dL ABDIEL [...] was last revised 2022. Testing performed by: [address] [address] Calcium 9.1 8.5 - 10.3 mg/dL ABDIEL Comment:Testing performed by : [address] [address] Bilirubin, total <0.2 0.1 - 1.2 mg/dL ABDIEL Comment:Testing performed by : [address] [address] Protein, pl 7.1 6.5 - 8.5 g/dL ABDIEL Comment:Testing performed by : [address] [address] Albumin 4.2 3.5 - 5.0 g/dL ABDIEL Comment:Testing performed by : [address] [address] Alk phos 70 40 - 130 Units/L ABDIEL Comment:Testing performed by : [address] [address] ALT 15 7 - 45 Units/L ABDIEL WALKER Comment:Testing performed by : [facility], [address] [place] [address]., [address] AST 29 10 - 45 Units/L ABDIEL Comment:Testing performed by : [facility], [address] [place] [address]., [address] Blood 11/19/2024 2:09 PM CDT 11/19/2024 2:17 PM CDT us Romel Valerio MD PhD LAB BLOOD ORDERABLES Final Result [facility] [address] [facility] Department [place] [address] * CT chest abdomen pelvis with contrast [...] Bladimir Verdugo M.D. AM: AM Report ID: [id number] Reading Location: [place] [address] Procedure Note Bladimir Verdugo MD - 11/16/2024 [...] Bladimir Verdugo M.D. AM: AM Report ID: [id number] Reading Location: [place] [address] us Romel Az Teodoro MD PhD IMG CT PROCEDURES Fin al Result * POCT creatinine for contrast evaluation (11/13/2024 3:17 PM CDT) Creatinine POC 1.10 0.60 - 1.10 mg/dL Comment:Testing performed by : [facility], [address] [place] [address]., [address] Blood 11/13/2024 3:17 PM CDT 11/13/2024 3:17 PM CDT Romel Valerio MD PhD POINT OF CARE TEST OR DERABLES Final Result [facility]EL [address] [facility] Department [place] [address] * MRI Brain W WO [...] Carlos Harris D.O. AP: AP Report ID: [id number] Reading Location: [id number] Procedure Note Carlos Harris, DO - 11/14/2024 [...] Carlos Harris D.O. AP: BAYRON Report ID: [id number] Reading Location: [place] [address] us Romel Valerio MD PhD IMG MRI PROCEDURES Fi nal Result from Last 3 [place] [address] [employer] MEDICARE 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 HEL[employer] FINANCIAL/MEDICAL * Full Code (Latest Code Status on File) Date Activated Date Inactivated Comments 06/03/2022 8:52 AM 06/04/2022 5:14 AM Care Teams Block Paver Relationship Specialty Start Date End Date Chandni Vang NP [address] [place], [place] [id number] PCP - General Nurse Practitioner 08/22/23 Kaushik Gonzalez DO Referring Physician Internal Medicine 08/09/18 Navjot Danielson MD Cardiothoracic Surgery 08/21/18 Rinku Hoffmann MD Radiation Oncologist Radiation Oncology 07/28/21 Adryan Stevens MD Consulting Physician Cardiovascular Disease 09/02/21 Romel Valerio MD PhD [facility] MEDICAL ONCOLOGY, [address] [address] Consulting Physician Medical Oncology 04/04/22 Rachel Ramirez MD [address] [place] [address] MEDICAL ONCOLOGY, [address] [address] Consulting Physician Pulmonary Disease 04/20/22 Ivis Okeefe MD [address] [place] [address] MEDICAL ONCOLOGY, [address] [id number] Referring Physician Dermatology 08/30/22
--- OUTSIDE RECORDS SUMMARY | 2025-01-11 13:21 | XMS_ITS | Clinical Summary ---
Author Organization [facility] [address] [facility] [address] [place] [address] Care Team Providers Care Lead Miner Blasting Name Role Phone Kaushik Gonzalez Unavailable Navjot Danielson MD Unavailable [phone] Rinku Hoffmann MD Unavailable [phone] Adryan Stevens MD Unavailable [phone] Romel Valerio MD PhD Unavailable Rachel Ramirez MD Unavailable [phone] Ivis Okeefe MD Unavailable [phone] Chandni Vang NP Primary Care Provider [phone] Allergies Active Allergy Reactions Criticality Noted Date Comments Fluticasone Propion-Salmeterol Other (See comments) Low 07/28/2020 Mouth sores Other Other (See comments) Low 03/21/2022 Skin breakout from paper mask Clopidogrel Hives Medium 08/16/2018 Tiotropium Gerber Hives Medium 04/02/2019 Medications denosumab (PROLIA) 60 mg/mL syringe Inject under the skin every 6 (six) months Every 6 months. 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 022 Overview (09/01/2021): Added automatically from request for surgery [id number] Overweight 07/05/2021 Cigarette nicotine dependence in remission [...] Description 11/19/2024 2:30 PM CDT Office Visit [facility] Oncology [address] [place] [address] [address] [place] [address] Romel Valerio MD PhD Malignant neoplasm of overlapping sites of left lung (HCC) (Primary Dx); 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) 11/19/2024 2:15 PM CDT Clinical Support [facility] at [address] [address] Malignant neoplasm of overlapping sites of left lung (HCC) 11/13/2024 2:09 PM CDT - 11/13/2024 11:59 PM CDT Hospital Encounter [facility] MRI [address] [place] [address] Malignant neoplasm of overlapping sites of left lung (HCC) Discharge Disposition: Discharge to home or self care 11/13/2024 2:08 PM CDT - 11/13/2024 11:59 PM CDT Hospital Encounter [facility] CT [address] [place] [address] Malignant neoplasm of overlapping sites of left [...] on file Legal 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 Testing performed by: [address] [address] Blood 11/19/2024 2:09 PM CDT 11/19/2024 2:17 PM CDT us Romel Valerio MD PhD LAB BLOOD ORDERABLES Final Result ABDIEL [address] [facility] Department [place] [address] * Differential, auto (11/19/2024 2:09 PM CDT) Neutrophil abs 3.68 1.50 - 6.50 K/cumm Comment:Testing performed by : [address] [address] Imm gran abs 0.02 0.00 - 0.10 K/cumm ABDIEL Comment:Testing performed by : [address] [address] Lymphocyte abs 1.04 0.80 - 3.30 K/cumm ABDIEL Comment:Testing performed by : [address] [address] Monocyte abs 0.57 0.20 - 0.80 K/cumm ABDIEL Comment:Testing performed by : [address] [address] Eosinophil abs 0.12 0.00 - 0.50 K/cumm ABDIEL Comment:Testing performed by : [address] [address] Basophil abs 0.02 0.00 - 0.10 K/cumm ABDIEL Comment:Testing performed by : [address] [address] Neutrophil pct 67.4 % [facility] Comment: Interpretive Data Percent cell count reference ranges are not reported, since discordance with absolute values may lead to misinterpretation of CBC data. Current Interpretive Data was last revised on 2017. Testing performed by: [address] [address] Imm gran pct 0.4 % [facility] Comment: Interpretive Data Percent cell count reference ranges are not reported, since discordance with absolute values may lead to misinterpretation of CBC data. Current Interpretive Data was last revised on 2017. Testing performed by: [address] [address] Lymphocyte pct 19.1 % [facility] Comment: Interpretive Data Percent cell count reference ranges are not reported, since discordance with absolute values may lead to misinterpretation of CBC data. Current Interpretive Data was last revised on 2017. Testing performed by: [address] [address] Monocyte pct 10.5 % [facility] [place] Comment: Interpretive Data Percent cell count reference ranges are not reported, since discordance with absolute values may lead to misinterpretation of CBC data. Current Interpretive Data was last revised on 2017. Testing performed by: [address] [address] Eosinophil pct 2.2 % [facility] [place] Comment: Interpretive Data Percent cell count reference ranges are not reported, since discordance with absolute values may lead to misinterpretation of CBC data. Current Interpretive Data was last revised on 2017. Testing performed by: [address] [address] Basophil pct 0.4 % [facility] Comment: Interpretive Data Percent cell count reference ranges are not reported, since discordance with absolute values may lead to misinterpretation of CBC data. Current Interpretive Data was last revised on 2017. Testing performed by: [address] [address] Blood 11/19/2024 2:09 PM CDT 11/19/2024 2:17 PM CDT us Romel Valerio MD PhD LAB BLOOD ORDERABLES Final Result [facility] [address] [facility] Department [place] [address] * (ABNORMAL) CBC with auto differential (11/19/2024 2:09 PM CDT) WBC 5.45 3.80 - 9.90 K/cumm Comment:Testing performed by : [address] [address] Hgb 10.4(L) 11.9 - 15.5 g/dL ABDIEL Comment:Testing performed by : [address] [address] Hct 31.7(L) 35.6 - 45.5 % ABDIEL Comment:Testing performed by : [address] [address] Plt 207 150 - 400 K/cumm ABDIEL Comment:Testing performed by : [address] [address] MPV 9.1 9.1 - 12.3 fL ABDIEL Comment:Testing performed by : [address] [address] RBC 3.85(L) 3.90 - 5.20 M/cumm ABDIEL Comment:Testing performed by : [address] [address] MCV 82.3 81.3 - 96.4 fL ABDIEL Comment:Testing performed by : [address] [address] MCH 27.0(L) 27.1 - 33.3 pg ABDIEL Comment:Testing performed by : [address] [address] MCHC 32.8 32.3 - 35.7 g/dL ABDIEL WALKER Comment:Testing performed by : [address] [address] RDW CV 16.2(H) 11.1 - 14.9 % ABDIEL WALKER Comment:Testing performed by : [address] [address] RDW SD 47.9 35.7 - 48.1 fL ABDIEL Comment:Testing performed by : [address] [address] NRBC abs 0.00 0.00 - 0.01 K/cumm ABDIEL Comment:Testing performed by : [address] [address] ANC Prelim 3.68 1.50 - 6.50 K/cumm ABDIEL Comment: Interpretive Data The rapid ANC is a preliminary automated count and may vary from the final ANC (Neut Abs) reported in the WBC differential that follows. Current interpretive data was last revised 2024. Testing performed by: [address] [address] Blood 11/19/2024 2:09 PM CDT 11/19/2024 2:17 PM CDT us Romel Valerio MD PhD LAB BLOOD ORDERABLES Final Result ABDIEL [address] [facility] Department [place] [address] * (ABNORMAL) Comprehensive metabolic panel (11/19/2024 2:09 PM CDT) Sodium 136 135 - 145 mmol/L Comment:Testing performed by : [address] [address] Potassium, pl 3.9 3.3 - 4.9 mmol/L ABDIEL Comment:Testing performed by : [address] [address] Chloride 101 97 - 110 mmol/L ABDIEL Comment:Testing performed by : [address], [place]., [address] CO2 24 22 - 32 mmol/L ABDIEL Comment:Testing performed by : [address], [place]., [address] Anion gap 11 2 - 15 mmol/L ABDIEL Comment:Testing performed by : [address], [place]., [address] BUN 28(H) 6 - 25 mg/dL ABDIEL Comment:Testing performed by : [address], [place]., [address] Creatinine 1.00 0.60 - 1.10 mg/dL ABDIEL Comment:Testing performed by : [address] [address] Glucose 103 70 - 199 mg/dL ABDIEL [...] was last revised 2022. Testing performed by: [address] [address] Calcium 9.1 8.5 - 10.3 mg/dL ABDIEL Comment:Testing performed by : [address] [address] Bilirubin, total <0.2 0.1 - 1.2 mg/dL ABDIEL Comment:Testing performed by : [address] [address] Protein, pl 7.1 6.5 - 8.5 g/dL ABDIEL Comment:Testing performed by : [address], [place]., [address] Albumin 4.2 3.5 - 5.0 g/dL ABDIEL WALKER Comment:Testing performed by : [address] [address] Alk phos 70 40 - 130 Units/L ABDIEL WALKER Comment:Testing performed by : [address] [address] ALT 15 7 - 45 Units/L ABDIEL WALKER Comment:Testing performed by : [address] [address] AST 29 10 - 45 Units/L ABDIEL WALKER Comment:Testing performed by : [address] [address] Blood 11/19/2024 2:09 PM CDT 11/19/2024 2:17 PM CDT us Romel Valerio MD PhD LAB BLOOD ORDERABLES Final Result Performing Organization Address City/State/[facility] Co de Phone Number ABDIEL [address] [facility] Department [place] [address] * CT chest abdomen pelvis with contrast [...] Bladimir Verdugo M.D. AM: AM Report ID: [id number] Reading Location: [id number] Procedure Note Bladimir Verdugo MD - 11/16/2024 [...] Bladimir Verdugo M.D. AM: AM Report ID: [id number] Reading Location: [id number] us Romel Valerio MD PhD IMG CT PROCEDURES Fin al Result * POCT creatinine for contrast evaluation (11/13/2024 3:17 PM CDT) Creatinine POC 1.10 0.60 - 1.10 mg/dL Comment:Testing performed by : [facility], [address] [place] [address]., [address] Blood 11/13/2024 3:17 PM CDT 11/13/2024 3:17 PM CDT Romel Valerio MD PhD POINT OF CARE TEST OR DERABLES Final Result Performing Organization Address City/State/[facility] Co de Phone Number [facility] [place] [address] [facility] Department [place] [address] * MRI Brain W WO [...] Carlos Harris D.O. AP: AP Report ID: [id number] Reading Location: [id number] Procedure Note Carlos Harris, DO - 11/14/2024 [...] Carlos Harris D.O. AP: BAYRON Report ID: [id number] Reading Location: [place] [address] Romel Valerio MD PhD IMG MRI PROCEDURES Fi nal Result from Last 3 [place] [address] FOR LIFE MEDICARE FOR LIFE MEDICARE FOR LIFE Advance Directives For more information, please contact: [phone] Documents on File Type Date Recorded Patient Filter Washer And Presser Expl anation ADVANCE DIRECTIVE 09/30/2018 12:00 AM JAY [employer] DIRECTOR FINANCIAL/MEDICAL * Full Code (Latest Code Status on File) Date Activated Date Inactivated Comments 06/03/2022 8:52 AM 06/04/2022 5:14 AM Care Teams Lead Miner Blasting Relationship Specialty Start Date End Date Chandni Vang NP [address] [place] [address] PCP - General Nurse Practitioner 08/22/23 Kaushik Gonzalez DO Referring Physician Internal Medicine 08/09/18 Navjot Danielson MD Cardiothoracic Surgery 08/21/18 Rinku Hoffmann MD Radiation Oncologist Radiation Oncology 07/28/21 Adryan Stevens MD Consulting Physician Cardiovascular Disease 09/02/21 Romel Valerio MD PhD [address] [place] [address] MEDICAL ONCOLOGY, [address] [id number] Consulting Physician Medical Oncology 04/04/22 Rachel Ramirez MD [address] [place] [address] MEDICAL ONCOLOGY, [address] [address] Consulting Physician Pulmonary Disease 04/20/22 Ivis Okeefe MD [address] [place] [address] MEDICAL ONCOLOGY, [address] [address] Referring Physician Dermatology 08/30/22
--- OUTSIDE RECORDS SUMMARY | 2025-01-11 13:21 | XMS_ITS | Encounter Summary ---
Author Organization [facility] Care Team Providers Care Application Processor Name Role Phone Kaushik Gonzalez DO Primary Care Provider [phone] Kaushik Gonzalez DO Primary Care Provider [phone] Kaushik Gonzalez DO Unavailable Kaushik Gonzalez DO Unavailable Navjot Danielson MD Unavailable [phone] Checo Hawley MD Unavailable [phone] Rinku Hoffmann MD Unavailable [phone] Adryan Stevens MD Unavailable [phone] Romel Valerio MD PhD Unavailable [phone] Rachel Ramirez MD Unavailable [phone] Ivis Okeefe MD Unavailable [phone] Chandni Vang Primary Care Provider Unavailabl e Kaushik Gonzalez DO Primary Care Provider [phone] Chandni Vang NP Primary Care Provider [phone] Encounter Details Date Type Department Care Team (Latest Contact Info) Description 09/06/2018 Orders Only [facility] CLINCON[facility] ProviderNahum MD [address] [place] [address] Social History Tobacco Use Types Packs/Day Years Used Date Smoking Tobacco: Every Day Smokeless Tobacco: Never Alcohol Use Standard Drinks/Week Comments Yes 0 (1 standard drink = 0.6 oz pur e alcohol) Comments Unknown Sex and Gender Information Value Date Recorded Sex Assigned at Not on file 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 us Historical Provider Final Res ult documented in this encounter Visit Diagnoses Not on filedocumented in this encounter Additional Health Concerns Infection Onset Date Last Indicated Resolved Time COVID: Suspected 09/06/2021 09/06/2021 09/06/2021 10:47 PM STATISTICAL MACHINE SERVICER documented as of this encounter Care Teams Application Processor Relationship Specialty Start Date End Date Kaushik Gonzalez DO PCP - General Internal Medicine 08/09/18 09/20/18 Kaushik Gonzalez DO PCP - General 09/21/18 01/23/23 Chandni Vang PCP - General Family Medicine 01/24/23 02/27/23 Kaushik Gonzalez DO PCP - General Internal Medicine 02/28/23 08/21/23 Chandni Vang NP [address] [place] [address] PCP - General Nurse Practitioner 08/22/23 Kaushik Gonzalez DO Internal Medicine 09/21/18 02/27/23 Kaushik Gonzalez DO Referring Physician Internal Medicine 08/09/18 Navjot Danielson MD Cardiothoracic Surgery 08/21/18 Checo Hawley MD Medical Oncologist/Hematologis t Hematology and Oncology 08/31/18 04/03/22 Rinku Hoffmann MD Radiation Oncologist Radiation Oncology 07/28/21 Adryan Stevens MD Consulting Physician Cardiovascular Disease 09/02/21 Romel Valerio MD PhD [address] [place] [address] MEDICAL ONCOLOGY, [place] [address] Consulting Physician Medical Oncology 04/04/22 Rachel Ramirez MD [address] [place] [address] MEDICAL ONCOLOGY, [address] [address] Consulting Physician Pulmonary Disease 04/20/22 Ivis Okeefe MD [address] [place] [address] MEDICAL ONCOLOGY, [address] [id number] Referring Physician Dermatology 08/30/22 documented as of this encounter
--- OUTSIDE RECORDS SUMMARY | 2025-01-11 13:21 | XMS_ITS ---
Author Organization [facility] [address] [place] [address] Care Team Providers Care Bank Cashier Name Role Phone Kaushik Gonzalez Unavailable Navjot Danielson MD Unavailable [phone] Rinku Hoffmann MD Unavailable Adryan Stevens MD Unavailable [phone] Romel Valerio MD PhD Unavailable Rachel Ramirez MD Unavailable [phone] Ivis Okeefe MD Unavailable [phone] Chandni Vang NP Primary Care Provider [phone] Active Problems Problem Noted Date Diagnosed Date Nocturnal hypoxemia 10/30/2023 Hyperlipemia 09/15/2023 Disease of cardiovascular system 09/15/2023 Sleep disorder 05/25/2023 Persons encountering health services in other specified circumstances 04/19/2022 Mass of upper lobe of left lung 03/18/2022 Overview (03/18/2022): Added automatically from request for surgery [id number] BMI 31.0-31.9,adult 11/29/2021 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
[2025-01-11 13:43] LABS: Albumin Level 4.3 g/dL (3.5-5.1); Anion Gap 8 mmol/L (4-12); Blood Urea Nitrogen 29 mg/dL (7-17); Calcium 8.8 mg/dL (8.4-10.2); Carbon Dioxide 28 mmol/L (22-30); Chloride 99 mmol/L (98-107); Estimated Glomerular Filt Rate 43; Glucose 86 mg/dL (65-110); Phosphorus 3.9 mg/dL (2.5-4.5); Potassium 3.6 mmol/L (3.4-5.0); Sodium 135 mmol/L (137-145)
[2025-01-11 14:13] LABS: Free T4 Free Thyroxine 2.01 ng/dL (0.78-2.19); Vitamin D 25 Hydroxy 51.7 ng/mL
== END 2025-01-11 13:16 | disposition home or self-care (01) ==
LOC: ANHLAB 13:19
PROVIDERS: PCP Family Medicine; Visit Provider Internal Medicine Endocrinology, Diabetes & Metabolism
DX: E55.9 Vitamin D deficiency, unspecified (principal); E89.0 Postprocedural hypothyroidism
CPT/HCPCS: 36415; 80069; 82306; 84439; 84443

== ENCOUNTER 2025-03-27 15:30 | Outpatient (RCR) | payer MEDICARE, OTHER, SELFPAY ==
--- NOTE | 2025-02-14 13:27 | OPREHPOC ---
Outpatient Therapy Plan of Care This is a Multidisciplinary Plan of Care that may contain components documented by all disciplines (PT, OT, and ST.) PT Problem 1 PT Problem #1 Knowledge Deficit PT Goal 1 Goal / Goal Update *independent with HEP Target Visit 8 PT Problem 2 PT Problem #2 Impaired Strength PT Goal 1 Goal / Goal Update increase strength of R and L LE to gross 4/5, to improve mobility and gait Target Visit 8 PT Problem 3 PT Problem #3 Impaired Functional Mobility PT Goal 1 Goal / Goal Update 1* Mcneil balance score of 54/56 2* 2 minute walking test distance of 300' 3* report NO falls Target Visit 8
--- NOTE | 2025-02-14 13:28 | PTOPEVAL1 ---
Assessment and note entered by Francoise Schuler, PT Evaluation Information Assessment Status Evaluation ICD-10 Condition Codes (PT) Difficulty Walking R26.2,Abnormalities of gait and mobility R26.9,Weakness R53.1 Onset Sep 2024 Subjective Information gradually more problems with walking and balance; had lost appetite, but doing better now; started using the cane about one month ago; do have some dizziness with her new chemo med; in the past 6 months have had 3 falls- fall due to muscles tighten up; had PT here in the past for gait and balance. activity: live alone, have basement with 1 hand railing- do OK on them; have home pedal machine; does not do any leg exercises from previous PT goal: walk without worrying and be able to trust myself when walking; Reported Pain Level Pain Score 7: Self Report Additional Pain Score Comments both legs hurt- whole legs hurt and ache; legs swell as the day goes on, wake up and they are small, then end of day large and hard Assessment PT Clinical Summary Grecia has the diagnosis of decreased gait and balance. She reports gradual increase in issues with falls, feel like they started with her chemo meds. She lives alone and uses a cane. Self assessment with LE functional scale rating of 55% limitation in activity level. With the evaluation: decreased strength of both legs, R weaker than L; Mcneil balance score of 47/56 ; 2 minute walking test with cane of 225'; Skilled PT services are indicated for therapeutic exercises and activities to increase LE strength, gait and balance skills, to reduce risk for falls and improve mobility. Education for HEP and safety with mobility. Plan of Care Interventions Gait Training,Neuro Re-education,Patient/Caregiver Education,Therapeutic Activities,Therapeutic Exercise PT Services Indicated Yes Treatment Frequency and 1-2x/wk for 8 visits Duration These treatments will address the objective and functional deficits as defined above. The patient will be advanced safely and appropriately in order for the patient to progress towards his/her prior level of function. Additional exercises will be introduced and as well as a comprehensive home exercise program upon discharge, if needed, ?to ensure carryover of functional gains achieved in the clinic. This treatment plan has been reviewed and agreement upon by the patient.
--- NOTE | 2025-03-17 16:00 | PCPTNOTE ---
Cancelled/ill per front office. AKS
--- NOTE | 2025-03-27 16:13 | OPREHPOC ---
Outpatient Therapy Plan of Care This is a Multidisciplinary Plan of Care that may contain components documented by all disciplines (PT, OT, and ST.) PT Problem 1 PT Problem #1 Knowledge Deficit PT Goal 1 Goal / Goal Update *independent with HEP 03-27-25 d/c goal met Target Visit 8 Progress Met PT Problem 2 PT Problem #2 Impaired Strength PT Goal 1 Goal / Goal Update increase strength of R and L LE to gross 4/5, to improve mobility and gait 03-27-25 d/c goal met Target Visit 8 Progress Met PT Problem 3 PT Problem #3 Impaired Functional Mobility PT Goal 1 Goal / Goal Update 1* Mcneil balance score of 54/56 2* 2 minute walking test distance of 300' 3* report NO falls 03-27-25 d/c goal 3 met; improved #1 to 50/56; #2 to 280'; Target Visit 8 Progress Partially Met
--- NOTE | 2025-03-27 16:13 | PTOPDC ---
Assessment and note entered by Francoise Schuler, PT Assessment Status Discharge ICD-10 Condition Codes (PT) Difficulty Walking R26.2,Abnormalities of gait and mobility R26.9,Weakness R53.1 Onset Sep 2024 Subjective Information feel like balance and walking are better; use cane for walking sometimes in the house and when go somewhere; have not had any falls; exercises are good at home; Reported Pain Level Pain Score 0: Self Report Assessment PT Clinical Summary Grecia has received 7 PT sessions. She called/ canceled 1 appointment. Today's assessment: self assessment with LE functional score rating of 49% limitation in activity level; 2 minute walking test distance of 280'; Mcneil balance score of 50/56; gross strength of R and L LE 4/5; HEP education completed. She has not had any falls since starting therapy. The goals were partially met. Discharge PT services. She is to continue with her HEP and activity as tolerated with breathing issues and fatigue. Plan of Care PT Services Indicated No
== END 2025-03-28 09:33 | disposition home or self-care (01) ==
LOC: ANHPT 15:30
PROVIDERS: PCP Nurse Practitioner Family; Visit Provider Nurse Practitioner Family
DX: R53.1 Weakness (principal); R26.9 Unspecified abnormalities of gait and mobility; C34.92 Malignant neoplasm of unspecified part of left bronchus or lung
CPT/HCPCS: 97110; 97161; 97530

== ENCOUNTER 2025-05-23 20:12 | Emergency (ER) | payer MEDICARE, OTHER, SELFPAY ==
[2025-05-23 20:13] VITALS: BP 132/99; PULSE 79; RESP 24; TEMP 37.2; O2SAT 100
--- OUTSIDE RECORDS SUMMARY | 2025-05-23 20:14 | XMS_ITS ---
Author Organization [facility] [address] Address [address] [place] [address] Care Team Providers Care Customer Experience Strategist Name Role Phone Kaushik Gonzalez DO Unavailable Navjot Danielson MD Unavailable [phone] Rinku Hoffmann MD Unavailable [phone] Adryan Stevens MD Unavailable [phone] Romel Valerio MD PhD Unavailable Rachel Ramirez MD Unavailable Ivis Okeefe MD Unavailable [phone] Chandni Vang NP Primary Care Provider [phone] Active Problems Problem Noted Date Diagnosed Date Nocturnal hypoxemia 10/30/2023 Hyperlipemia 09/15/2023 Disease of cardiovascular system 09/15/2023 Sleep disorder 05/25/2023 Persons encountering health services in other specified circumstances 04/19/2022 Mass of upper lobe of left lung 03/18/2022 Overview (03/18/2022): Added automatically from request for surgery [id number] BMI 30.0-30.9,adult 11/29/2021 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
--- OUTSIDE RECORDS SUMMARY | 2025-05-23 20:14 | XMS_ITS | Encounter Summary ---
Author Organization [facility] Facility Care Team Providers Care Chief Dispatcher Name Role Phone Kaushik Gonzalez DO Primary Care Provider [phone] Kaushik Gonzalez DO Primary Care Provider [phone] Kaushik Gonzalez DO Unavailable Kaushik Gonzalez DO Unavailable Navjot Danielson MD Unavailable [phone] Checo Hawley MD Unavailable [phone] Rinku Hoffmann MD Unavailable [phone] Adryan Stevens MD Unavailable [phone] Romel Valerio MD PhD Unavailable Rachel Ramirez MD Unavailable [phone] Ivis Okeefe MD Unavailable [phone] Chandni Vang Primary Care Provider Unavailabl Kaushik Swain DO Primary Care Provider [phone] Chandni Vang NP Primary Care Provider [phone] Encounter Details Date Type Department Care Team (Latest Contact Info) Description 09/10/2018 Orders Only [facility] ProviderNahum MD [address] [place] [address] Social History Tobacco Use Types Packs/Day Years Used Date Smoking Tobacco: Every Day Smokeless Tobacco: Never Alcohol Use Standard Drinks/Week Comments Yes 0 (1 standard drink = 0.6 oz pur e alcohol) Comments Unknown Sex and Gender Information Value Date Recorded Sex Assigned at Not on file Legal Sex Female 4:07 AM RAIL TRACK MAINTAINER Gender Identity Not on file Sexual Orientation Not on file documented as of this encounter Plan of Treatment Not on file documented as of this encounter Procedures Procedure Name Priority Date/Time Associated Diagnosis Comments PROCEDURE - RESULT 09/10/2018 12 :00 AM RAIL TRACK MAINTAINER documented in this encounter Results * PROCEDURE - RESULT (09/10/2018 12:00 AM RAIL TRACK MAINTAINER) Narrative 09/10/2018 12:00 AM RAIL TRACK MAINTAINER Ordered by an unspecified provider. us Historical Provider Final Res ult documented in this encounter Visit Diagnoses Not on filedocumented in this encounter Additional Health Concerns Infection Onset Date Last Indicated Resolved Time COVID: Suspected 09/06/2021 09/06/2021 09/06/2021 10:47 PM RAIL TRACK MAINTAINER documented as of this encounter Care Teams Chief Dispatcher Relationship Specialty Start Date End Date Kaushik Gonzalez DO PCP - General Internal Medicine 08/09/18 09/20/18 Kaushik Gonzalez DO PCP - General 09/21/18 01/23/23 Chandni Vang PCP - General Family Medicine 01/24/23 02/27/23 Kaushik Gonzalez DO PCP - General Internal Medicine 02/28/23 08/21/23 Chandni Vang NP [address] [place] [address] PCP - General Nurse Practitioner 08/22/23 Kaushik Gonzalez DO Internal Medicine 09/21/18 02/27/23 Sudarshan GonzalezeDO Referring Physician Internal Medicine 08/09/18 Navjot Danielson MD Cardiothoracic Surgery 08/21/18 Checo Hawley MD Medical Oncologist/Hematologis t Hematology and Oncology 08/31/18 04/03/22 Rinku Hoffmann MD Radiation Oncologist Radiation Oncology 07/28/21 Adryan Stevens MD Consulting Physician Cardiovascular Disease 09/02/21 Romel Valerio MD PhD [address] [place] [address] MEDICAL ONCOLOGY, [address] [address] Consulting Physician Medical Oncology 04/04/22 Rachel Ramirez MD [address] [place] [address] MEDICAL ONCOLOGY, [address] [address] Consulting Physician Pulmonary Disease 04/20/22 Ivis Okeefe MD [address] [place] [address] MEDICAL ONCOLOGY, [address] [address] Referring Physician Dermatology 08/30/22 documented as of this encounter
--- OUTSIDE RECORDS SUMMARY | 2025-05-23 20:14 | XMS_ITS | Encounter Summary ---
Author Organization [facility] Facility Care Team Providers Care Glass Or Mirror Inspector Name Role Phone Kaushik Gonzalez DO Primary Care Provider [phone] Kaushik Gonzalez DO Primary Care Provider [phone] Kaushik Gonzalez DO Unavailable Kaushik Gonzalez DO Unavailable Navjot Danielson MD Unavailable [phone] Checo Hawley MD Unavailable [phone] Rinku Hoffmann MD Unavailable [phone] Adryan Stevens MD Unavailable [phone] Romel Valerio MD PhD Unavailable Rachel Ramirez MD Unavailable [phone] Ivis Okeefe MD Unavailable [phone] Chandni Vang Primary Care Provider Unavailabl Kaushik Swain DO Primary Care Provider [phone] Chandni Vang NP Primary Care Provider [phone] Encounter Details Date Type Department Care Team (Latest Contact Info) Description 09/06/2018 Orders Only [facility] CLINCON[facility] ProviderNahum MD [address] [place] [address] Social History Tobacco Use Types Packs/Day Years Used Date Smoking Tobacco: Every Day Smokeless Tobacco: Never Alcohol Use Standard Drinks/Week Comments Yes 0 (1 standard drink = 0.6 oz pur e alcohol) Comments Unknown Sex and Gender Information Value Date Recorded Sex Assigned at Not on file Legal Sex Female 4:07 AM RECEIVING CHECKER Gender Identity Not on file Sexual Orientation Not on file documented as of this encounter Plan of Treatment Not on file documented as of this encounter Procedures Procedure Name Priority Date/Time Associated Diagnosis Comments PROCEDURE - RESULT 09/10/2018 12 :00 AM RECEIVING CHECKER documented in this encounter Results * PROCEDURE - RESULT (09/10/2018 12:00 AM RECEIVING CHECKER) Narrative 09/10/2018 12:00 AM RECEIVING CHECKER Ordered by an unspecified provider. us Historical Provider Final Res ult documented in this encounter Visit Diagnoses Not on filedocumented in this encounter Additional Health Concerns Infection Onset Date Last Indicated Resolved Time COVID: Suspected 09/06/2021 09/06/2021 09/06/2021 10:47 PM RECEIVING CHECKER documented as of this encounter Care Teams Glass Or Mirror Inspector Relationship Specialty Start Date End Date Kaushik Gonzalez DO PCP - General Internal Medicine 08/09/18 09/20/18 Kaushik Gonzalez DO PCP - General 09/21/18 01/23/23 Chandni Vang PCP - General Family Medicine 01/24/23 02/27/23 Kaushik Gonzalez DO PCP - General Internal Medicine 02/28/23 08/21/23 Chandni Vang NP [address] [place] [address] PCP - General Nurse Practitioner 08/22/23 Kaushik Gonzalez DO Internal Medicine 09/21/18 02/27/23 Sudarshan GonzalezeDO Referring Physician Internal Medicine 08/09/18 Navjot Danielson MD Cardiothoracic Surgery 08/21/18 Checo Hawley MD Medical Oncologist/Hematologis t Hematology and Oncology 08/31/18 04/03/22 Rinku Hoffmann MD Radiation Oncologist Radiation Oncology 07/28/21 Adryan Stevens MD Consulting Physician Cardiovascular Disease 09/02/21 Romel Valerio MD PhD [address] [place] [address] MEDICAL ONCOLOGY, [address] [address] Consulting Physician Medical Oncology 04/04/22 Rachel Ramirez MD [address] [place] [address] MEDICAL ONCOLOGY, [address] [address] Consulting Physician Pulmonary Disease 04/20/22 Ivis Okeefe MD [address] [place] [address] MEDICAL ONCOLOGY, [address] [address] Referring Physician Dermatology 08/30/22 documented as of this encounter
--- OUTSIDE RECORDS SUMMARY | 2025-05-23 20:14 | XMS_ITS | Encounter Summary ---
Author Organization [facility] Healthcare Address [address] [place] [address] Care Team Providers Care Child Care Group Leader Name Role Phone Kaushik Gonzalez DO Unavailable Navjot Danielson MD Unavailable [phone] Rinku Hoffmann MD Unavailable [phone] Adryan Stevens MD Unavailable [phone] Romel Valerio MD PhD Unavailable Rachel Ramirez MD Unavailable [phone] Ivis Okeefe MD Unavailable [phone] Chandni Vang NP Primary Care Provider [phone] Reason for Visit * Reason Onset Date Comments Cancer 02/18/2025 Encounter Details Date Type Department Care Team (Late st Contact Info) Description 02/18/2025 Documentation [facility] Medical [facility] Building 2 Radiation Oncology [address] [place] [address] Cancer Social History Tobacco Use Types Packs/Day Years Used Date Smoking Tobacco: Former Cigarettes 0.5 44 1 975 - 08/2018 Smokeless Tobacco: Never Alcohol Use Standard Drinks/Week Comments Not Currently 0 (1 standard drink = 0.6 oz pur e alcohol) AUDIT-C Answer Date Recorded Frequency of Alcohol Consumption Not on file 02/18/2025 Q2: How many drinks containi ng alcohol do you have on a typical day when you are drinking? Patient does not drink Q3: How often do you have si x or more drinks on one occasion? Less than monthly 02/18/2025 Comments Unknown Sex and Gender Information Value Date Recorded Sex Assigned at Not on file Legal Sex Female 4:07 AM METHODS ANALYST DATA PROCESSING Gender Identity Not on file Sexual Orientation Not on file documented as of this encounter Functional Status documented as of this encounter Plan of Treatment Not on file documented as of this encounter Visit Diagnoses Not on filedocumented in this encounter Care Teams Child Care Group Leader Relationship Specialty Start Date End Date Chandni Vang NP [address] [facility] [address] [facility] 1 [place], [place] [id number] PCP - General Nurse Practitioner 08/22/23 Kaushik Gonzalez DO Referring Physician Internal Medicine 08/09/18 Navjot Danielson MD Cardiothoracic Surgery 08/21/18 Rinku Hoffmann MD Radiation Oncologist Radiation Oncology 07/28/21 Adryan Stevens MD Consulting Physician Cardiovascular Disease 09/02/21 Romel Valerio MD PhD [address] [place] [address] MEDICAL ONCOLOGY, [address] [id number] Consulting Physician Medical Oncology 04/04/22 Rachel Ramirez MD [address] [place] [address] MEDICAL ONCOLOGY, [address] [id number] Consulting Physician Pulmonary Disease 04/20/22 Ivis Okeefe MD [facility] [facility] MEDICAL ONCOLOGY, [facility] [address] [place] [address] Referring Physician Dermatology 08/30/22 documented as of this encounter
--- OUTSIDE RECORDS SUMMARY | 2025-05-23 20:14 | XMS_ITS | Clinical Summary ---
Author Organization [facility] [address] Address [address] [place] [address] Care Team Providers Care Magnetic Testing Technician Name Role Phone Kaushik Gonzalez DO Unavailable Navjot Danielson MD Unavailable [phone] Rinku Hoffmann MD Unavailable Adryan Stevens MD Unavailable [phone] Romel Valerio MD PhD Unavailable [phone] Rachel Ramirez MD Unavailable [phone] Ivis Okeefe MD Unavailable [phone] Chandni Vang CARBONATOR Primary Care Provider [phone] Allergies Active Allergy Reactions Criticality Noted Date Comments Fluticasone Propion-Salmeterol Other (See comments) Low 07/28/2020 Mouth sores Other Other (See comments) Low 03/21/2022 Skin breakout from paper mask Clopidogrel Hives Medium 08/16/2018 Tiotropium Iron Belt Hives Medium 04/02/2019 Medications denosumab (PROLIA) 60 mg/mL syringe Inject under the skin every 6 (six) months Every 6 months. Last time oct 3 Active amLODIPine (NORVASC) 5 mg tablet Take 1 tablet (5 mg total) by mouth daily Active levothyroxine (SYNTHROID, LEVOTHROID) 75 mcg tablet Take 1 tablet (75 mcg total) by mouth site acquisition manager before breakfast Active aspirin 81 mg enteric [...] 3 TIMES A WEEK 09/15/19 25 Active carvediloL (COREG) 25 mg tablet 0.5 tablets (12.5 mg total) daily Patient restated that it might be 12.5 mg. She phoned a friend to verify. Active famotidine (PEPCID) 40 mg tablet Take 1 mg every day by oral route. Active Nizoral A-D 1 % shampoo APPLY TOPICALLY TWICE A WEEK Active azithromycin (ZITHROMAX) 250 mg tablet Take 2 tablets (500 mg total) by mouth daily for 1 day, THEN 1 tablet (250 mg total) daily for 4 days. 6 tablet 05/20/20 25 025 Active folic acid (FOLVITE) 1 mg tabletIndication [...] (03/18/2022): Added automatically from request for surgery [id number] BMI 30.0-30.9,adult 11/29/2021 Consolidation of left upper lobe of lung 022 Overview (09/01/2021): Added automatically from request for surgery [id number] Overweight 07/05/2021 Cigarette nicotine dependence in remission [...] Encounters Date Type Department Care Team Description 05/20/2025 3:00 PM CDT Office Visit [facility] [address] [facility] [place] [address] Tor Loera PA Malignant neoplasm of overlapping sites of left lung (HCC) (Primary Dx) 05/20/2025 2:30 PM CDT Clinical Support [facility] [address] [place] [address] Malignant neoplasm of overlapping sites of left lung (HCC) 05/13/2025 2:23 PM CDT - 05/13/2025 11:59 PM CDT Hospital Encounter [facility] [address] [place] [address] Malignant neoplasm of overlapping sites of left lung (HCC) Discharge Disposition: Discharge to home or self care 05/13/2025 2:22 PM CDT - 05/13/2025 11:59 PM CDT Hospital Encounter [facility] MRI [facility] [place] [address] Malignant neoplasm of overlapping sites of left lung (HCC) Discharge Disposition: Discharge to home or self care 03/03/2025 2:30 PM CDT Office Visit [facility] [address] [facility] [address] [place] [phone] Rachel Ramirez MD Malignant neoplasm of overlapping sites of left lung (HCC) (Primary Dx); Chronic cough; Dyspnea on exertion; Mixed simple and mucopurulent chronic bronchitis (HCC); Cigarette nicotine dependence in remission; S/P CABG x 2; Nocturnal hypoxemia; BMI 30.0-30.9,adult from Last 3 Months Surgical History Surgery [...] Chronic bronchitis (HCC) Type 2 diabetes mellitus niddm GERD (gastroesophageal reflux disease) managed with meds COPD (chronic obstructive pu lmonary disease) Shingles 11/2020 has had on and o [...] Frequency of Alcohol Consumption Not on file 05/20/2025 Q2: How many drinks containi ng alcohol do you have on a typical day when you are drinking? 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 Gender Identity Not on file Sexual Orientation Not on file Obstetrics History Last Filed Vital Signs Vital Sign Reading Time Taken Comments Blood Pressure 152/74 05/20/2025 2:32 PM CDT PA notifiied Pulse 72 05/20/2025 2:32 PM CDT Temperature 36.7 C (98.1 F) 05/20/2025 2:32 PM CDT Respiratory Rate 18 05/20/2025 2:32 PM CDT Oxygen Saturation 99% 05/20/2025 2:3 2 PM CDT Inhaled Oxygen Concentration - - Weight 64.8 kg (142 lb 13.7 oz) 05/20/2025 2:32 PM CDT Height 144.8 cm (4' 9) 03/03/2025 2:20 PM CDT Body Mass Index 30.91 03/03/2025 2:20 PM CDT Plan of Treatment Health Maintenance [...] Risk Assessment 06/03/2023 06/03/2022 Influenza Vaccine (#1) 2025 Medical Devices Implanted Type Area Crime Analyst Device Identifier Shelf Expiration Date Model / Serial / Lot Cardiac Stent Coronary Artery [employer] Xcela Power Port 8fr [id number] - [id number] Implanted:Qty: 1 on 06/03/2022 at [facility] [employer] 02/06/2027 [id number] / / [id number] Procedures Procedure Name Priority Date/Time Associated Diagnosis Comments EGFR Routine 05/20/2025 2:14 PM CDT Malignant neoplasm of overlapping sites of left lung (HCC) DIFFERENTIAL AUTO Routine 05/20/2025 2:1 4 PM CDT Malignant neoplasm of overlapping sites of left lung (HCC) CBC WITH AUTO DIFFERENTIAL Routine 05/20/2025 2:14 PM CDT Malignant neoplasm of overlapping sites of left lung (HCC) COMPREHENSIVE METABOLIC PANEL Routine 05/20/2025 2:14 PM CDT Malignant neoplasm of overlapping sites of left lung (HCC) CT CHEST ABDOMEN PELVIS W CONTRAST Schedule Routine, Read Routine (OP Routine) 05/13/2025 3:51 PM CDT Malignant neoplasm of overlapping sites of left lung (HCC) POCT CREATININE FOR CONTRAST EVALUATION Routine 05/13/2025 3:48 PM CDT MRI BRAIN W WO CONTRAST Schedule Routine, Read Routine (OP Routine) 05/13/2025 3:35 PM CDT Malignant neoplasm of overlapping sites of left lung (HCC) from Last 3 Months Results * (ABNORMAL) eGFR (05/20/2025 2:14 PM CDT) eGFR 32(L) >=60 mL/min/1. 73 m2 Comment: Interpretive Data [...] of Race in Diagnosing Kidney Disease, JASN 202). The CKD-EPI equation should not be used for patients with unstable renal function and has not been validated in children and those over 70. Current interpretive data was last reviewed 2021. Testing performed by: [facility], [address] [place] [address], [place]., [address] Blood 05/20/2025 2:14 PM CDT 05/20/2025 2:16 PM CDT us Romel Valerio MD PhD LAB BLOOD ORDERABLES Final Result [facility] [address] [facility] Department [place] [address] * Differential, auto (05/20/2025 2:14 PM CDT) Neutrophil abs 4.31 1.50 - 6.50 K/cumm Comment:Testing performed by : [address] [address] Imm gran abs 0.02 0.00 - 0.10 K/cumm ABDIEL Comment:Testing performed by : [address] [address] Lymphocyte abs 1.28 0.80 - 3.30 K/cumm ADBIEL Comment:Testing performed by : [address] [address] Monocyte abs 0.73 0.20 - 0.80 K/cumm ABDIEL Comment:Testing performed by : [address] [address] Eosinophil abs 0.23 0.00 - 0.50 K/cumm ABDIEL Comment:Testing performed by : [address] [address] Basophil abs 0.03 0.00 - 0.10 K/cumm ABDIEL Comment:Testing performed by : [address] [address] Neutrophil pct 65.2 % [facility] Comment: Interpretive Data Percent cell count reference ranges are not reported, since discordance with absolute values may lead to misinterpretation of CBC data. Current Interpretive Data was last revised on 2017. Testing performed by: [address] [address] Imm gran pct 0.3 % [facility] Comment: Interpretive Data Percent cell count reference ranges are not reported, since discordance with absolute values may lead to misinterpretation of CBC data. Current Interpretive Data was last revised on 2017. Testing performed by: [address] [address] Lymphocyte pct 19.4 % [facility] Comment: Interpretive Data Percent cell count reference ranges are not reported, since discordance with absolute values may lead to misinterpretation of CBC data. Current Interpretive Data was last revised on 2017. Testing performed by: [address] [address] Monocyte pct 11.1 % [facility] Comment: Interpretive Data Percent cell count reference ranges are not reported, since discordance with absolute values may lead to misinterpretation of CBC data. Current Interpretive Data was last revised on 2017. Testing performed by: [address] [address] Eosinophil pct 3.5 % [facility] Comment: Interpretive Data Percent cell count reference ranges are not reported, since discordance with absolute values may lead to misinterpretation of CBC data. Current Interpretive Data was last revised on 2017. Testing performed by: [address] [address] Basophil pct 0.5 % [facility] Comment: Interpretive Data Percent cell count reference ranges are not reported, since discordance with absolute values may lead to misinterpretation of CBC data. Current Interpretive Data was last revised on 2017. Testing performed by: [address] [address] Blood 05/20/2025 2:14 PM CDT 05/20/2025 2:16 PM CDT us Romel Valerio MD PhD LAB BLOOD ORDERABLES Final Result [facility] [address] [facility] Department [place] [address] * (ABNORMAL) CBC with auto differential (05/20/2025 2:14 PM CDT) WBC 6.60 3.80 - 9.90 K/cumm Comment:Testing performed by : [address] [address] Hgb 10.7(L) 11.9 - 15.5 g/dL ABDIEL Comment:Testing performed by : [address], [address] Hct 32.4(L) 35.6 - 45.5 % C[facility] Comment:Testing performed by : [address], [address] Plt 213 150 - 400 K/cumm ABDIEL Comment:Testing performed by : [address], [address] MPV 9.1 9.1 - 12.3 fL CERROB Comment:Testing performed by : [address], [address] RBC 3.83(L) 3.90 - 5.20 M/cumm ABDIEL Comment:Testing performed by : [address], [address] MCV 84.6 81.3 - 96.4 fL CERROB Comment:Testing performed by : [address], [address] MCH 27.9 27.1 - 33.3 pg CERROB Comment:Testing performed by : [address], [address] MCHC 33.0 32.3 - 35.7 g/dL CERROB Comment:Testing performed by : [address], [address] RDW CV 15.6(H) 11.1 - 14.9 % [facility] Comment:Testing performed by : [address], [address] RDW SD 47.8 35.7 - 48.1 fL CERROB Comment:Testing performed by : [address] [address] NRBC abs 0.00 0.00 - 0.01 K/cumm ABDIEL Comment:Testing performed by : [address], [address] ANC Prelim 4.31 1.50 - 6.50 K/cumm [facility] Comment: Interpretive Data The rapid ANC is a preliminary automated count and may vary from the final ANC (Neut Abs) reported in the WBC differential that follows. Current interpretive data was last revised 2024. Testing performed by: [address] [address] Blood 05/20/2025 2:14 PM CDT 05/20/2025 2:16 PM CDT Romel Valerio MD PhD LAB BLOOD ORDERABLES Final Result [facility] [address] [facility] Department [place] [address] * (ABNORMAL) Comprehensive metabolic panel (05/20/2025 2:14 PM CDT) Sodium 135 135 - 145 mmol/L Comment:Testing performed by : [address] [address] Potassium, pl 3.8 3.3 - 4.9 mmol/L ABD[facility]EL Comment:Testing performed by : [address] [address] Chloride 99 97 - 110 mmol/L ABD[facility]EL Comment:Testing performed by : [address] [address] CO2 23 22 - 32 mmol/L ABD[facility]EL Comment:Testing performed by : [address] [address] Anion gap 13 2 - 15 mmol/L A[facility]EL Comment:Testing performed by : [address] [address] BUN 36(H) 6 - 25 mg/dL ABDIEL Comment:Testing performed by : [address] [address] Creatinine 1.60(H) 0.60 - 1.10 mg/dL ABDIEL Comment:Testing performed by : [address] [address] Glucose 108 70 - 199 mg/dL ABD[facility]EL Comment: Interpretive [...] was last revised 2022. Testing performed by: [address] [address] Calcium 8.7 8.5 - 10.3 mg/dL ABDIEL Comment:Testing performed by : [address] [address] Bilirubin, total 0.3 0.1 - 1.2 mg/dL ABDIEL Comment:Testing performed by : [address] [address] Protein, pl 6.9 6.5 - 8.5 g/dL ABD[facility]EL Comment:Testing performed by : [address] [address] Albumin 4.0 3.5 - 5.0 g/dL ABD[facility]EL Comment:Testing performed by : [address] [address] Alk phos 57 40 - 130 Units/L A[facility]EL Comment:Testing performed by : [address] [address] ALT 13 7 - 45 Units/L A[facility]EL Comment:Testing performed by : [address] [address] AST 24 10 - 45 Units/L [facility] Comment:Testing performed by : [address] [address] Blood 05/20/2025 2:14 PM CDT 05/20/2025 2:16 PM CDT us Rmoel Valerio MD PhD LAB BLOOD ORDERABLES Final Result [facility] [address] [facility] [address] Department [place], [place] [id number] * CT Chest Abdomen Pelvis W Contrast (05/13/2025 3:51 PM CDT) Anatomical Region Laterality Modality Body N/A Computed Tomogra phy 05/16/2025 3:38 PM CDT Narrative 05/16/2025 3:54 PM CDT EXAM DESCRIPTION: CT CHEST ABDOMEN PELVIS W CONTRAST REASON FOR STUDY: Lung cancer Lung cancer, Malignant neoplasm of overlapping sites of left lung (HCC) TECHNIQUE: CT scan of the chest, abdomen, and pelvis performed with intravenous and without oral contrast using helical scanning technique with dynamic intravenous contrast injection. Reconstructed coronal and sagittal MPR images reviewed. All images stored on PACS. Automated exposure control was used as a dose optimization technique for this examination. CONTRAST TYPE/DOSE: 90mL of IOVERSOL 350 MG IODINE/ML INTRAVENOUS SYRINGE injected via intravenous COMPARISON: CT chest abdomen pelvis 02/11/2025 ; CT chest abdomen pelvis 08/06/2024. FINDINGS: CHEST LUNGS: Unchanged appearance of the left lung with occlusion of an apical bronchus with a large area atelectasis/consolidation. There is a new 6 mm subpleural nodule in the apical portion of the left lower lobe on image 24. There are scattered areas of scarring in the lung bases bilaterally, similar to the comparison. PLEURA: No effusion. No pneumothorax. MEDIASTINUM/SHIRLEY: No identified masses or abnormal nodes. HEART: Changes of CABG. The heart size is top-normal. No pericardial effusion. There are multivessel coronary artery calcifications. Aortic valvular and mitral annular calcifications are also present. VASCULATURE CHEST: No thoracic aortic aneurysm or dissection. AXILLA: Large amount of calcified atherosclerotic plaque in the thoracic aorta without aneurysm or dissection. CHEST WALL: No masses. No subcutaneous air. HARDWARE/LINES/TUBES: Right-sided Port-A-Cath terminates in the right atrium. There are median sternotomy wires. MUSCULOSKELETAL CHEST: There is no suspicious osseous [...] fluid collections. Pancreatic duct not dilated. ADRENALS: Similar appearance of minimal nodular thickening of the left adrenal gland. KIDNEYS/URINARY TRACT: There is a cyst in the right kidney and there are a few subcentimeter low-attenuation lesions bilaterally which are too small to be characterized. There is no hydronephrosis or hydroureter. Urinary bladder is unremarkable. GI: Stomach is decompressed. No dilated or thick-walled loops of bowel appreciated. Appendix is not identified. There is colonic diverticulosis without diverticulitis. PERITONEUM: No ascites or free air. RETROPERITONEUM: No mass or adenopathy. REPRODUCTIVE: No significant abnormality. VASCULATURE ABDOMEN: There is advanced atherosclerotic disease of the abdominal aorta and there is an infrarenal abdominal aortic aneurysm measuring up to 3.4 cm, unchanged. MUSCULOSKELETAL ABDOMEN PELVIS: There is no suspicious osseous lesion. There is grade 1 anterolisthesis of L3 on L4. OTHER: No significant abnormality. IMPRESSION: 1. Unchanged appearance of the left lung with occlusion of an apical bronchus with a large area of atelectasis/consolidation. 2. New 6 mm subpleural nodule in the apical portion of the left lower lobe. Recommend attention on follow-up. 3. No evidence of metastatic disease in the abdomen or pelvis. 4. Unchanged infrarenal abdominal aortic aneurysm measuring up to 3.4 cm. 5. Additional findings as above. THIS IS AN ELECTRONICALLY VERIFIED FINAL REPORT 05/16/2025 3:54 PM - Electronically signed by Bladimir Verdugo M.D. AM: AM Report ID: [id number] Reading Location: [id number] Procedure Note Bladimir Verdugo MD - 05/16/2025 EXAM DESCRIPTION: CT CHEST ABDOMEN PELVIS W CONTRAST REASON FOR STUDY: Lung cancer Lung cancer, Malignant neoplasm of overlapping sites of left lung (HCC) TECHNIQUE: CT scan of the chest, abdomen, and pelvis performed with intravenous and without oral contrast using helical scanning techniquewith dynamic intravenous contrast injection. Reconstructed coronal and sagittalMPR images reviewed. All images stored on PACS. Automated exposure control was used as a dose optimization technique for this examination. CONTRAST TYPE/DOSE: 90mL of IOVERSOL 350 MG IODINE/ML INTRAVENOUS SYRINGE injected via intravenous COMPARISON: CT chest abdomen pelvis 02/11/2025 ; CT chest abdomen pelvis 08/06/2024. FINDINGS: CHEST LUNGS: Unchanged appearance of the left lung with occlusion of an apical bronchus with a large area atelectasis/consolidation. There is a new 6 mm subpleural nodule in the apical portion of the left lower lobe on image24. There are scattered areas of scarring in the lung bases bilaterally,similar to the comparison. PLEURA: No effusion. No pneumothorax. MEDIASTINUM/SHIRLEY: No identified masses or abnormal nodes. HEART: Changes of CABG. The heart size is top-normal. No pericardial effusion. There are multivessel coronary artery calcifications. Aortic valvular and mitral annular calcifications are also present. VASCULATURE CHEST: No thoracic aortic aneurysm or dissection. AXILLA: Large amount of calcified atherosclerotic plaque in the thoracic aorta without aneurysm or dissection. CHEST WALL: No masses. No subcutaneous air. HARDWARE/LINES/TUBES: Right-sided Port-A-Cath terminates in the right atrium. There are median sternotomy wires. MUSCULOSKELETAL CHEST: There is no suspicious osseous lesion. ABDOMEN/PELVIS LIVER: Normal size. No identified cystic or solid masses. GALLBLADDER: No stones identified. No wall thickening or inflammatory changes. BILE DUCTS: No intrahepatic or extrahepatic ductal dilatation. SPLEEN: Normal size. No focal lesions. PANCREAS: No identified cystic or solid masses. No significant calcifications. No adjacent inflammation or peripancreatic fluidcollections. Pancreatic duct not dilated. ADRENALS: Similar appearance of minimal nodular thickening of the left adrenal gland. KIDNEYS/URINARY TRACT: There is a cyst in the right kidney and there area few subcentimeter low-attenuation lesions bilaterally which are too smallto be characterized. There is no hydronephrosis or hydroureter. Urinary bladder is unremarkable. GI: Stomach is decompressed. No dilated or thick-walled loops of bowel appreciated. Appendix is not identified. There is colonic diverticulosis without diverticulitis. PERITONEUM: No ascites or free air. RETROPERITONEUM: No mass or adenopathy. REPRODUCTIVE: No significant abnormality. VASCULATURE ABDOMEN: There is advanced atherosclerotic disease of the abdominal aorta and there is an infrarenal abdominal aortic aneurysmmeasuring up to 3.4 cm, unchanged. MUSCULOSKELETAL ABDOMEN PELVIS: There is no suspicious osseous lesion. There is grade 1 anterolisthesis of L3 on L4. OTHER: No significant abnormality. IMPRESSION: 1. Unchanged appearance of the left lung with occlusion of an apical bronchus with a large area of atelectasis/consolidation. 2. New 6 mm subpleural nodule in the apical portion of the left lowerlobe. Recommend attention on follow-up. 3. No evidence of metastatic disease in the abdomen or pelvis. 4. Unchanged infrarenal abdominal aortic aneurysm measuring up to 3.4cm. 5. Additional findings as above. THIS IS AN ELECTRONICALLY VERIFIED FINAL REPORT 05/16/2025 3:54 PM - Electronically signed by Bladimir Verdugo M.D. AM: AM Report ID: [id number] Reading Location: [place] [address] us Romel Valerio MD PhD IMG CT PROCEDURES Fin al Result * (ABNORMAL) POCT creatinine for contrast evaluation (05/13/2025 3:48 PM CDT) Creatinine POC 1.20(H) 0.60 - 1.10 mg/dL Comment:Testing performed by : [facility], [address] [place] [address]., [id number] Blood 05/13/2025 3:48 PM CDT 05/13/2025 3:48 PM CDT us Romel Valerio MD PhD POINT OF CARE TEST OR DERABLES Final Result [facility] [address] [facility] Department [place] [address] * MRI Brain W WO Contrast (05/13/2025 3:35 PM CDT) Anatomical Region Laterality Modality Head and Neck N/A Magnetic Resonan ce 05/13/2025 9:22 PM CDT Narrative 05/13/2025 9:42 PM CDT EXAM DESCRIPTION: MRI BRAIN W WO CONTRAST REASON FOR STUDY: Lung cancer Lung cancer, Malignant neoplasm of overlapping sites of left lung TECHNIQUE: Multiplanar imaging includes noncontrast T1, T2, FLAIR, diffusion with ADC map and post contrast T1 sequences. Additional sequence(s) sensitive to blood products. Images stored on PACS. CONTRAST TYPE/DOSE: 15mL of GADOTERATE MEGLUMINE 0.5 MMOL/ML INTRAVENOUS SOLUTION (SO) injected via intravenous COMPARISON: Brain MRI dated 11/13/2024. FINDINGS: CEREBRUM: No hemorrhage, edema, or mass effect. No abnormal enhancement. WHITE MATTER: There are bilateral confluent subcortical and periventricular supratentorial white matter T2/FLAIR hyperintensities, most compatible with moderate to advanced chronic small vessel ischemic changes. POSTERIOR FOSSA: Brainstem and cerebellum appear unremarkable. No abnormal enhancement. DIFFUSION IMAGING: No recent infarction. EXTRAAXIAL SPACES: Small right temporal convexity extra-axial homogeneously enhancing mass compatible with a small meningioma, unchanged, measuring 8 x 5 mm. No hemorrhage. No other mass or abnormal enhancement. BRAIN VOLUME: Ventricles and sulci are mildly enlarged commensurate with global parenchymal volume loss. PITUITARY: Unremarkable. VASCULATURE: No flow disturbance identified. ORBITS: Bilateral lens replacements are noted. No masses. Globes normal. PARANASAL SINUSES AND MASTOIDS: Well-aerated with no fluid levels. No mucosa thickening. OTHER: No other significant finding. IMPRESSION: 1. No acute intracranial abnormality. No evidence of metastatic disease. 2. Stable small right temporal convexity meningioma. 3. Additional findings; as detailed. THIS IS AN ELECTRONICALLY VERIFIED FINAL REPORT 05/13/2025 9:42 PM - Electronically signed by Amirah King M.D. MF: BRIAN Report ID: [id number] Reading Location: [id number] Procedure Note Amirah King, - 05/13/2025 EXAM DESCRIPTION: MRI BRAIN W WO CONTRAST REASON FOR STUDY: Lung cancer Lung cancer, Malignant neoplasm of overlapping sites of left lung TECHNIQUE: Multiplanar imaging includes noncontrast T1, T2, FLAIR,diffusion with ADC map and post contrast T1 sequences. Additional sequence(s)sensitive to blood products. Images stored on PACS. CONTRAST TYPE/DOSE: 15mL of GADOTERATE MEGLUMINE 0.5 MMOL/ML INTRAVENOUS SOLUTION (SO) injected via intravenous COMPARISON: Brain MRI dated 11/13/2024. FINDINGS: CEREBRUM: No hemorrhage, edema, or mass effect. No abnormal enhancement. WHITE MATTER: There are bilateral confluent subcortical andperiventricular supratentorial white matter T2/FLAIR hyperintensities, most compatiblewith moderate to advanced chronic small vessel ischemic changes. POSTERIOR FOSSA: Brainstem and cerebellum appear unremarkable. Noabnormal enhancement. DIFFUSION IMAGING: No recent infarction. EXTRAAXIAL SPACES: Small right temporal convexity extra-axialhomogeneously enhancing mass compatible with a small meningioma, unchanged, measuring 8x 5 mm. No hemorrhage. No other mass or abnormal enhancement. BRAIN VOLUME: Ventricles and sulci are mildly enlarged commensurate with global parenchymal volume loss. PITUITARY: Unremarkable. VASCULATURE: No flow disturbance identified. ORBITS: Bilateral lens replacements are noted. No masses. Globesnormal. PARANASAL SINUSES AND MASTOIDS: Well-aerated with no fluid levels. Nomucosa thickening. OTHER: No other significant finding. IMPRESSION: 1. No acute intracranial abnormality. No evidence ofmetastatic disease. 2. Stable small right temporal convexity meningioma. 3. Additional findings; as detailed. THIS IS AN ELECTRONICALLY VERIFIED FINAL REPORT 05/13/2025 9:42 PM - Electronically signed by Amirah King M.D. 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 12:00 AM JAY JAY R OF MEDICAL AND SCIENTIFIC ILLUSTRATOR FINANCIAL/MEDICAL * Full Code (Latest Code Status on File) Date Activated Date Inactivated Comments 06/03/2022 8:52 AM 06/04/2022 5:14 AM Care Teams Magnetic Testing Technician Relationship Specialty Start Date End Date Chandni Vang NP [address] [place] [address] PCP - General Nurse Practitioner 08/22/23 Kaushik Gonzalez DO Referring Physician Internal Medicine 08/09/18 Navjot Danielson MD Cardiothoracic Surgery 08/21/18 Rinku Hoffmann MD Radiation Oncologist Radiation Oncology 07/28/21 Adyran Stevens MD Consulting Physician Cardiovascular Disease 09/02/21 Romel Valerio MD PhD [address] [place] [address] MEDICAL ONCOLOGY, [address] [address] Consulting Physician Medical Oncology 04/04/22 Rachel Ramirez MD [address] [place] [address] MEDICAL ONCOLOGY, [address] [address] Consulting Physician Pulmonary Disease 04/20/22 Ivis Okeefe MD [address] [place] [address] MEDICAL ONCOLOGY, [address] [address] Referring Physician Dermatology 08/30/22
[2025-05-24 00:18] LABS: Add Urine Microscopic? YES; Appearance Urine Turbid (Clear); Glucose Urine UA Negative (Negative); Leukocyte Esterase Ur 3+ LEU/UL (Negative); Need Manual Microscopic Reviewed; Nitrate Urine Negative (Negative); Specific Grav Ur 1.018 (1.001-1.035)
== END 2025-05-24 02:52 | disposition left against medical advice (07) ==
LOC: ANHED 05-24 00:51
PROVIDERS: Emergency Provider Student in an Organized Health Care Education/Training Program; PCP Nurse Practitioner Family
DX: R30.0 Dysuria (principal)
CPT/HCPCS: 81001; 87086; 87186; 99199

== ENCOUNTER 2025-06-11 10:47 | Outpatient (CLI) | payer MEDICARE, OTHER, SELFPAY ==
[2025-06-11 11:43] LABS: Alanine Aminotransferase 18 U/L (6-35); Albumin Level 4.1 g/dL (3.5-5.1); Alkaline Phosphatase 57 U/L (38-126); Anion Gap 5 mmol/L (4-12); Aspartate Amino Transferase 39 U/L (14-36); Bilirubin,Total 0.4 mg/dL (0.2-1.3); Blood Urea Nitrogen 27 mg/dL (7-17); Calcium 9.0 mg/dL (8.4-10.2); Carbon Dioxide 31 mmol/L (22-30); Chloride 101 mmol/L (98-107); Cholesterol 207 mg/dL (0-200); Creatine Kinase 284 U/L (30-135); Estimated Glomerular Filt Rate 44; Glucose 113 mg/dL (65-110); HDL Direct 64 mg/dL; Potassium 3.5 mmol/L (3.4-5.0); Sodium 137 mmol/L (137-145); Total Protein 7.3 g/dL (6.3-8.2); Triglycerides 88 mg/dL (<150)
--- OUTSIDE RECORDS SUMMARY | 2025-06-12 10:26 | XMS_ITS | Encounter Summary ---
Author Organization [facility] Healthcare Address [address] [place] [address] Care Team Providers Care Senior Business Development Manager Name Role Phone Kaushik Gonzalez DO Unavailable Navjot Danielson MD Unavailable [phone] Rinku Hoffmann MD Unavailable [phone] Adryan Stevens MD Unavailable [phone] Romel Valerio MD PhD Unavailable Rachel Ramirez MD Unavailable [phone] Ivis Okeefe MD Unavailable [phone] Chandni Vang NP Primary Care Provider [phone] Reason for Visit * Reason Onset Date Comments Cancer 02/18/2025 Encounter Details Date Type Department Care Team (Late st Contact Info) Description 02/18/2025 Documentation [facility] Medical Office Building 2 Radiation Oncology [address] [place] [address] Cancer Social History Tobacco [...] on file Legal Sex Female 4:07 AM SALES PROGRAM COORDINATOR Gender Identity Not on file Sexual Orientation Not on file documented as of this encounter Functional Status documented as of this encounter Plan of Treatment Not on file documented as of this encounter Visit Diagnoses Not on filedocumented in this encounter Care Teams Senior Business Development Manager Relationship Specialty Start Date End Date Chandni Vang NP [address] [facility] 1 [facility] 1 [place], [place] [id number] PCP - General Nurse Practitioner 08/22/23 Kaushik Gonzalez DO Referring Physician Internal Medicine 08/09/18 Navjot Danielson MD Cardiothoracic Surgery 08/21/18 Rinku Hoffmann MD Radiation Oncologist Radiation Oncology 07/28/21 Adryan Stevens MD Consulting Physician Cardiovascular Disease 09/02/21 Romel Valerio MD PhD [address] [place] [address] MEDICAL ONCOLOGY, [address] [id number] Consulting Physician Medical Oncology 04/04/22 Rachel Ramirez MD [address] [place] [address] MEDICAL ONCOLOGY, [address] [id number] Consulting Physician Pulmonary Disease 04/20/22 Ivis Okeefe MD [facility] MEDICAL ONCOLOGY, [facility] [address] [place] [address] Referring Physician Dermatology 08/30/22 documented as of this encounter
--- OUTSIDE RECORDS SUMMARY | 2025-06-12 10:26 | XMS_ITS | Encounter Summary ---
Author Organization [facility] Facility Care Team Providers Care Lockstitch Shoulder Joiner Name Role Phone Kaushik Gonzalez DO Primary Care Provider [phone] Kaushik Gonzalez DO Primary Care Provider [phone] Kaushik Gonzalez DO Unavailable Kaushik Gonzalez DO Unavailable Navjot Danielson MD Unavailable [phone] Checo Hawley MD Unavailable [phone] Rinku Hoffmann MD Unavailable [phone] Adryan Stevens MD Unavailable [phone] Romel Valerio MD PhD Unavailable Rachel Ramirez MD Unavailable [phone] Ivis Okeefe MD Unavailable [phone] Chandni Vang Primary Care Provider Unavailabl Kaushik Swain DO Primary Care Provider [phone] Chandni Vang NP Primary Care Provider [phone] Encounter Details Date Type Department Care Team (Latest Contact Info) Description 09/10/2018 Orders Only [facility] CLINCONV ProviderNahum MD [address] [place] [address] Social History Tobacco Use Types Packs/Day Years Used Date Smoking Tobacco: Every Day Smokeless Tobacco: Never Alcohol Use Standard Drinks/Week Comments Yes 0 (1 standard drink = 0.6 oz pur e alcohol) Comments Unknown Sex and Gender Information Value Date Recorded Sex Assigned at Not on file Legal Sex Female 4:07 AM SHERIFFS Gender Identity Not on file Sexual Orientation Not on file documented as of this encounter Plan of Treatment Not on file documented as of this encounter Procedures Procedure Name Priority Date/Time Associated Diagnosis Comments PROCEDURE - RESULT 09/10/2018 12 :00 AM SHERIFFS documented in this encounter Results * PROCEDURE - RESULT (09/10/2018 12:00 AM SHERIFFS) Narrative 09/10/2018 12:00 AM SHERIFFS Ordered by an unspecified provider. us Historical Provider Final Res ult documented in this encounter Visit Diagnoses Not on filedocumented in this encounter Additional Health Concerns Infection Onset Date Last Indicated Resolved Time COVID: Suspected 09/06/2021 09/06/2021 09/06/2021 10:47 PM SHERIFFS documented as of this encounter Care Teams Lockstitch Shoulder Joiner Relationship Specialty Start Date End Date Kaushik Gonzalez DO PCP - General Internal Medicine 08/09/18 09/20/18 Kaushik Gonzalez DO PCP - General 09/21/18 01/23/23 Chandni Vang PCP - General Family Medicine 01/24/23 02/27/23 Kaushik Gonzalez DO PCP - General Internal Medicine 02/28/23 08/21/23 Chandni Vang NP [address] [place] [address] PCP - General Nurse Practitioner 08/22/23 Kaushik Gonzalez DO Internal Medicine 09/21/18 02/27/23 Sudarshan GonzalezeDO Referring Physician Internal Medicine 08/09/18 Navjot Danielson MD Cardiothoracic Surgery 08/21/18 Checo Hawley MD Medical Oncologist/Hematologis t Hematology and Oncology 08/31/18 04/03/22 Rinku Hoffmann MD Radiation Oncologist Radiation Oncology 07/28/21 Adryan Stevens MD Consulting Physician Cardiovascular Disease 09/02/21 Romel Valerio MD PhD [address] [place] [address] MEDICAL ONCOLOGY, [address] [address] Consulting Physician Medical Oncology 04/04/22 Rachel Ramirez MD [address] [place] [address] MEDICAL ONCOLOGY, [address] [address] Consulting Physician Pulmonary Disease 04/20/22 Ivis Okeefe MD [address] [place] [address] MEDICAL ONCOLOGY, [address] [address] Referring Physician Dermatology 08/30/22 documented as of this encounter
--- OUTSIDE RECORDS SUMMARY | 2025-06-12 10:26 | XMS_ITS | Encounter Summary ---
Author Organization [facility] Facility Care Team Providers Care Brass Buffer Name Role Phone Kaushik Gonzalez DO Primary Care Provider [phone] Kaushik Gonzalez DO Primary Care Provider [phone] Kaushik Gonzalez DO Unavailable Kaushik Gonzalez DO Unavailable Navjot Danielson MD Unavailable [phone] Checo Hawley MD Unavailable [phone] Rinku Hoffmann MD Unavailable [phone] Adryan Stevens MD Unavailable [phone] Romel Valerio MD PhD Unavailable Rachel Ramirez MD Unavailable [phone] Ivis Okeefe MD Unavailable [phone] Chandni Vang Primary Care Provider Unavailabl Kaushik Swain DO Primary Care Provider [phone] Chandni Vang NP Primary Care Provider [phone] Encounter Details Date Type Department Care Team (Latest Contact Info) Description 09/06/2018 Orders Only [facility] CLINCONV ProviderNahum MD [address] [place] [address] Social History Tobacco Use Types Packs/Day Years Used Date Smoking Tobacco: Every Day Smokeless Tobacco: Never Alcohol Use Standard Drinks/Week Comments Yes 0 (1 standard drink = 0.6 oz pur e alcohol) Comments Unknown Sex and Gender Information Value Date Recorded Sex Assigned at Not on file Legal Sex Female 4:07 AM LASTEX THREAD WINDER Gender Identity Not on file Sexual Orientation Not on file documented as of this encounter Plan of Treatment Not on file documented as of this encounter Procedures Procedure Name Priority Date/Time Associated Diagnosis Comments PROCEDURE - RESULT 09/10/2018 12 :00 AM LASTEX THREAD WINDER documented in this encounter Results * PROCEDURE - RESULT (09/10/2018 12:00 AM LASTEX THREAD WINDER) Narrative 09/10/2018 12:00 AM LASTEX THREAD WINDER Ordered by an unspecified provider. us Historical Provider Final Res ult documented in this encounter Visit Diagnoses Not on filedocumented in this encounter Additional Health Concerns Infection Onset Date Last Indicated Resolved Time COVID: Suspected 09/06/2021 09/06/2021 09/06/2021 10:47 PM LASTEX THREAD WINDER documented as of this encounter Care Teams Brass Buffer Relationship Specialty Start Date End Date Kaushik Gonzalez DO PCP - General Internal Medicine 08/09/18 09/20/18 Kaushik Gonzalez DO PCP - General 09/21/18 01/23/23 Chandni Vang PCP - General Family Medicine 01/24/23 02/27/23 Kaushik Gonzalez DO PCP - General Internal Medicine 02/28/23 08/21/23 Chandni Vang NP [address] [place] [address] PCP - General Nurse Practitioner 08/22/23 Kaushik Gonzalez DO Internal Medicine 09/21/18 02/27/23 Sudarshan GonzalezeDO Referring Physician Internal Medicine 08/09/18 Navjot Danielson MD Cardiothoracic Surgery 08/21/18 Checo Hawley MD Medical Oncologist/Hematologis t Hematology and Oncology 08/31/18 04/03/22 Rinku Hoffmann MD Radiation Oncologist Radiation Oncology 07/28/21 Adryan Stevens MD Consulting Physician Cardiovascular Disease 09/02/21 Romel Valerio MD PhD [address] [place] [address] MEDICAL ONCOLOGY, [address] [address] Consulting Physician Medical Oncology 04/04/22 Rachel Ramirez MD [address] [place] [address] MEDICAL ONCOLOGY, [address] [address] Consulting Physician Pulmonary Disease 04/20/22 Ivis Okeefe MD [address] [place] [address] MEDICAL ONCOLOGY, [address] [address] Referring Physician Dermatology 08/30/22 documented as of this encounter
--- OUTSIDE RECORDS SUMMARY | 2025-06-12 10:26 | XMS_ITS | Clinical Summary ---
Author Organization [facility] [place] [address] Address [address] [place] [address] Care Team Providers Care Tufting Machine Operator Single Needle Name Role Phone Kaushik Gonzalez DO Unavailable Navjot Danielson MD Unavailable [phone] Rinku Hoffmann MD Unavailable [phone] Adryan Stevens MD Unavailable [phone] Romel Valerio MD PhD Unavailable Rachel Ramirez MD Unavailable [phone] Ivis Okeefe MD Unavailable [phone] Chandni Vang FURNACE AND WASH EQUIPMENT OPERATOR Primary Care Provider [phone] Allergies Active Allergy Reactions Criticality Noted Date Comments Fluticasone Propion-Salmeterol Other (See comments) Low 07/28/2020 Mouth sores Other Other (See comments) Low 03/21/2022 Skin breakout from paper mask Clopidogrel Hives Medium 08/16/2018 Tiotropium [place] Hives Medium 04/02/2019 Medications denosumab (PROLIA) 60 mg/mL syringe Inject under the skin every 6 (six) months Every 6 months. Last time oct 3 Active amLODIPine (NORVASC) 5 mg tablet Take 1 tablet (5 mg total) by mouth daily Active levothyroxine (SYNTHROID, LEVOTHROID) 75 mcg tablet Take 1 tablet (75 mcg total) by mouth automatic lump making machine tender before breakfast Active aspirin 81 mg enteric [...] shampoo APPLY TOPICALLY TWICE A WEEK Active folic acid (FOLVITE) 1 mg tabletIndication s:Persons encountering health services in other specified circumstances,No n-small cell cancer of left lung (HCC) Take 1 tablet by mouth daily starting 7 days before the first treatment and continuing until 21 days after the last pemetrexed treatment 30 tablet 5 05/31/20 22 022 Discontinued azithromycin (ZITHROMAX) 250 mg tablet Take 2 tablets (500 mg total) by mouth daily for 1 day, THEN 1 tablet (250 mg total) daily for 4 days. 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 022 Overview (09/01/2021): Added automatically from request for surgery [id number] Overweight 07/05/2021 Cigarette nicotine dependence in remission [...] Encounters Date Type Department Care Team Description 06/03/2025 1:15 PM CDT Clinical Support [facility] at [address] [address] Malignant neoplasm of overlapping sites of left lung (HCC) 05/28/2025 Results Follow-Up [facility] Physicians [facility] Oncology [address] [place] [phone] Malika Cardenas RN Comprehensive metabolic panel, CBC with auto differential, Differential, auto, eGFR 05/20/2025 3:00 PM CDT Office Visit [facility] Physicians [facility] Oncology [address] [place] [phone] Tor Loera PA Malignant neoplasm of overlapping sites of left lung (HCC) (Primary Dx) 05/20/2025 2:30 PM CDT Clinical Support [facility] Cancer Pyrites at [address] [address] Malignant neoplasm of overlapping sites of left lung (HCC) 05/13/2025 2:23 PM CDT - 05/13/2025 11:59 PM CDT Hospital Encounter [facility] CT [address] [place] [address] Malignant neoplasm of overlapping sites of left lung (HCC) Discharge Disposition: Discharge to home or self care 05/13/2025 2:22 PM CDT - 05/13/2025 11:59 PM CDT Hospital Encounter [facility] MRI [address] [place] [address] Malignant neoplasm of overlapping sites of left [...] on file Legal Sex Female 4:07 AM NURSING HOME ADMISSIONS DIRECTOR Gender Identity Not on file Sexual Orientation [...] (#1) 2025 Medical Devices Implanted Type Area Electron Beam Welder Setter Device Identifier Shelf Expiration Date Model / Serial / Lot Cardiac Stent Coronary Artery [employer] Xcela Power Port 8fr [id number] - [id number] Implanted:Qty: 1 on 06/03/2022 at [facility] [employer] 02/06/2027 [id number] / / [id number] Procedures Procedure Name Priority Date/Time Associated Diagnosis Comments EGFR Routine 06/03/2025 1:23 PM CDT Malignant neoplasm of overlapping sites of left lung (HCC) BASIC METABOLIC PANEL Routine 06/03/2025 1:23 PM CDT Malignant neoplasm of overlapping sites of left lung (HCC) EGFR Routine 05/20/2025 2:14 PM CDT Malignant [...] Last 3 Months Results * (ABNORMAL) eGFR (06/03/2025 1:23 PM CDT) eGFR 45(L) >=60 mL/min/1. 73 m2 Comment: Interpretive Data [...] was last reviewed 2021. Testing performed by: [address] [address] Blood 06/03/2025 1:23 PM CDT 06/03/2025 1:24 PM CDT Romel Valerio MD PhD LAB BLOOD ORDERABLES Final Result [place] [id number] [facility] Department [place] [address] * (ABNORMAL) Basic metabolic panel (06/03/2025 1:23 PM CDT) Sodium 135 135 - 145 mmol/L Comment:Testing performed by : [address] [address] Potassium, pl 3.6 3.3 - 4.9 mmol/L ABDIEL Comment:Testing performed by : [address] [address] Chloride 97 97 - 110 mmol/L ABDIEL Comment:Testing performed by : [address] [address] CO2 23 22 - 32 mmol/L ABDIEL Comment:Testing performed by : [address] [address] Anion gap 15 2 - 15 mmol/L ABDIEL Comment:Testing performed by : [address] [address] BUN 34(H) 6 - 25 mg/dL ABDIEL Comment:Testing performed by : [address] [address] Creatinine 1.20(H) 0.60 - 1.10 mg/dL ABDIEL Comment:Testing performed by : [address] [address] Glucose 132 70 - 199 mg/dL ABDIEL Comment: Interpretive [...] was last revised 2022. Testing performed by: [facility], [address] [place] [address]., [address] Calcium 8.9 8.5 - 10.3 mg/dL ABDIEL WALKER Comment:Testing performed by : [facility], [address] [place] [address]., [address] Blood 06/03/2025 1:23 PM CDT 06/03/2025 1:24 PM CDT Romel Valerio MD PhD LAB BLOOD ORDERABLES Final Result A[facility]EL [address] [facility] Department [place] [address] * (ABNORMAL) eGFR (05/20/2025 2:14 PM CDT) [...] was last reviewed 2021. Testing performed by: [address] [address] Blood 05/20/2025 2:14 PM CDT 05/20/2025 2:16 PM CDT Romel Valerio MD PhD LAB BLOOD ORDERABLES Final Result [facility] [address] [facility] Department [place] [address] * Differential, auto (05/20/2025 2:14 PM CDT) Neutrophil abs 4.31 1.50 - 6.50 K/cumm Comment:Testing performed by : [address] [address] Imm gran abs 0.02 0.00 - 0.10 K/cumm ABDIEL Comment:Testing performed by : [address] [address] Lymphocyte abs 1.28 0.80 - 3.30 K/cumm ABDIEL Comment:Testing performed by : [address] [address] Monocyte abs 0.73 0.20 - 0.80 K/cumm ABDIEL Comment:Testing performed by : [address] [address] Eosinophil abs 0.23 0.00 - 0.50 K/cumm ABDIEL Comment:Testing performed by : [address] [address] Basophil abs 0.03 0.00 - 0.10 K/cumm ABDIEL Comment:Testing performed by : [address] [address] Neutrophil pct 65.2 % ABDIEL Comment: Interpretive Data Percent cell count reference ranges are not reported, since discordance with absolute values may lead to misinterpretation of CBC data. Current Interpretive Data was last revised on 2017. Testing performed by: [address] [address] Imm gran pct 0.3 % [facility] Comment: Interpretive Data Percent cell count reference ranges are not reported, since discordance with absolute values may lead to misinterpretation of CBC data. Current Interpretive Data was last revised on 2017. Testing performed by: [facility], [address] [place] [address]., [address] Lymphocyte pct 19.4 % [facility] Comment: Interpretive Data Percent cell count reference ranges are not reported, since discordance with absolute values may lead to misinterpretation of CBC data. Current Interpretive Data was last revised on 2017. Testing performed by: [address] [address] Monocyte pct 11.1 % [facility] Comment: Interpretive Data Percent cell count reference ranges are not reported, since discordance with absolute values may lead to misinterpretation of CBC data. Current Interpretive Data was last revised on 2017. Testing performed by: [address] [address] Eosinophil pct 3.5 % [facility] Comment: Interpretive Data Percent cell count reference ranges are not reported, since discordance with absolute values may lead to misinterpretation of CBC data. Current Interpretive Data was last revised on 2017. Testing performed by: [address] [address] Basophil pct 0.5 % [facility] [place] Comment: Interpretive Data Percent cell count reference ranges are not reported, since discordance with absolute values may lead to misinterpretation of CBC data. Current Interpretive Data was last revised on 2017. Testing performed by: [address] [address] Blood 05/20/2025 2:14 PM CDT 05/20/2025 2:16 PM CDT us Romel Valerio MD PhD LAB BLOOD ORDERABLES Final Result [facility] 2728 [facility] Department [place] [address] * (ABNORMAL) CBC with auto differential (05/20/2025 2:14 PM CDT) [facility] WBC 6.60 3.80 - 9.90 K/cumm Comment:Testing performed by : [address] [address] Hgb 10.7(L) 11.9 - 15.5 g/dL ABDIEL Comment:Testing performed by : [address] [address] Hct 32.4(L) 35.6 - 45.5 % ABDIEL Comment:Testing performed by : [address] [address] Plt 213 150 - 400 K/cumm ABDIEL Comment:Testing performed by : [address] [address] MPV 9.1 9.1 - 12.3 fL ABDIEL Comment:Testing performed by : [address], [address] RBC 3.83(L) 3.90 - 5.20 M/cumm ABDIEL Comment:Testing performed by : [address], [address] MCV 84.6 81.3 - 96.4 fL ABDIEL Comment:Testing performed by : [address] [address] MCH 27.9 27.1 - 33.3 pg ABDIEL Comment:Testing performed by : [address], [address] MCHC 33.0 32.3 - 35.7 g/dL ABDIEL Comment:Testing performed by : [address], [address] RDW CV 15.6(H) 11.1 - 14.9 % ABDIEL Comment:Testing performed by : [address], [address] RDW SD 47.8 35.7 - 48.1 fL ABDIEL Comment:Testing performed by : [address], [address] NRBC abs 0.00 0.00 - 0.01 K/cumm ABDIEL Comment:Testing performed by : [address] [address] ANC Prelim 4.31 1.50 - 6.50 K/cumm ABDIEL WALKER Comment: Interpretive Data The rapid ANC is a preliminary automated count and may vary from the final ANC (Neut Abs) reported in the WBC differential that follows. Current interpretive data was last revised 2024. Testing performed by: [address] [address] Blood 05/20/2025 2:14 PM CDT 05/20/2025 2:16 PM CDT us Romel Valerio MD PhD LAB BLOOD ORDERABLES Final Result [facility] [address] [facility] Department [place] [address] * (ABNORMAL) Comprehensive metabolic panel (05/20/2025 2:14 PM CDT) Sodium 135 135 - 145 mmol/L Comment:Testing performed by : [address] [address] Potassium, pl 3.8 3.3 - 4.9 mmol/L ABDIEL WALKER Comment:Testing performed by : [address] [address] Chloride 99 97 - 110 mmol/L ABDIEL Comment:Testing performed by : [address] [address] CO2 23 22 - 32 mmol/L ABDIEL Comment:Testing performed by : [address] [address] Anion gap 13 2 - 15 mmol/L ABDIEL Comment:Testing performed by : [address] [address] BUN 36(H) 6 - 25 mg/dL ABDIEL Comment:Testing performed by : [address] [address] Creatinine 1.60(H) 0.60 - 1.10 mg/dL ABDIEL Comment:Testing performed by : [address] [address] Glucose 108 70 - 199 mg/dL ABDIEL [...] was last revised 2022. Testing performed by: [address] [address] Calcium 8.7 8.5 - 10.3 mg/dL ABDIEL Comment:Testing performed by : [address] [address] Bilirubin, total 0.3 0.1 - 1.2 mg/dL ABDIEL Comment:Testing performed by : [address] [address] Protein, pl 6.9 6.5 - 8.5 g/dL ABDIEL Comment:Testing performed by : [address] [address] Albumin 4.0 3.5 - 5.0 g/dL ABDIEL Comment:Testing performed by : [address] [address] Alk phos 57 40 - 130 Units/L ABDIEL Comment:Testing performed by : [address] [address] ALT 13 7 - 45 Units/L ABDIEL Comment:Testing performed by : [address] [address] AST 24 10 - 45 Units/L ABDIEL Comment:Testing performed by : [address] [address] Blood 05/20/2025 2:14 PM CDT 05/20/2025 2:16 PM CDT us Romel Valerio MD PhD LAB BLOOD ORDERABLES Final Result [facility] 6[address] [facility] Department [place] [address] * CT Chest Abdomen Pelvis W Contrast [...] Bladimir Verdugo M.D. AM: AM Report ID: [id number] Reading Location: [id number] Procedure Note Bladimir Verdugo MD - 05/16/2025 [...] Bladimir Verdugo M.D. AM: AM Report ID: [id number] Reading Location: [place] [address] us Romel Valerio MD PhD IMG CT PROCEDURES Fin al Result * (ABNORMAL) POCT creatinine for contrast evaluation (05/13/2025 3:48 PM CDT) Creatinine POC 1.20(H) 0.60 - 1.10 mg/dL Comment:Testing performed by : [facility], [address] [place] [address]., [address] Blood 05/13/2025 3:48 PM CDT 05/13/2025 3:48 PM CDT us Romel Valerio MD PhD POINT OF CARE TEST OR DERABLES Final Result [facility] Department [place] [address] * MRI Brain W WO [...] Amirah King M.D. MF: BRIAN Report ID: [id number] Reading Location: [id number] Procedure Note Amirah King, - 05/13/2025 EXAM [...] Amirah King M.D. MF: BRIAN Report ID: [id number] Reading Location: [place] [address] Romel Valerio MD PhD IMG MRI PROCEDURES Fi nal Result from Last 3 Months Insurance MEDICARE FOR LIFE MEDICARE FOR LIFE MEDICARE FOR LIFE Advance Directives For more information, please contact: [phone] Documents on File Type Date Recorded Patient Elementary Assistant Teacher Expl anation ADVANCE DIRECTIVE 09/30/2018 12:00 AM JAY JAY R OF CHIP CRUSHER OPERATOR FINANCIAL/MEDICAL * Full Code (Latest Code Status on File) Date Activated Date Inactivated Comments 06/03/2022 8:52 AM 06/04/2022 5:14 AM Care Teams Tufting Machine Operator Single Needle Relationship Specialty Start Date End Date Chandni Vang NP [address] [place] [address] PCP - General Nurse Practitioner 08/22/23 Kaushik Gonzalez DO Referring Physician Internal Medicine 08/09/18 Navjot Danielson MD Cardiothoracic Surgery 08/21/18 Rinku Hoffmann MD Radiation Oncologist Radiation Oncology 07/28/21 Adryan Stevens MD Consulting Physician Cardiovascular Disease 09/02/21 Romel Valerio MD PhD [address] [place] [address] MEDICAL ONCOLOGY, [address] [id number] Consulting Physician Medical Oncology 04/04/22 Rachel Ramirez MD [address] [place] [address] MEDICAL ONCOLOGY, [address] [id number] Consulting Physician Pulmonary Disease 04/20/22 Ivis Okeefe MD [address] [place] [address] MEDICAL ONCOLOGY, [address] [address] Referring Physician Dermatology 08/30/22
--- OUTSIDE RECORDS SUMMARY | 2025-06-12 10:26 | XMS_ITS ---
Author Organization [facility] [place] [address] Address [address] [place] [address] Care Team Providers Care Applications Manager Name Role Phone Kaushik Gonzalez DO Unavailable Navjot Danielson MD Unavailable [phone] Rinku Hoffmann MD Unavailable [phone] Adryan Stevens MD Unavailable [phone] Romel Valerio MD PhD Unavailable Rachel Ramirez MD Unavailable Ivis Okeefe MD Unavailable [phone] Chandni Vang NP Primary Care Provider Active Problems Problem Noted Date Diagnosed Date Nocturnal hypoxemia 10/30/2023 Hyperlipemia 09/15/2023 Disease of cardiovascular system 09/15/2023 Sleep disorder 05/25/2023 Persons encountering health services in other specified circumstances 04/19/2022 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
--- OUTSIDE RECORDS SUMMARY | 2025-06-12 10:26 | XMS_ITS | Data Portability ---
Author Organization [facility] OFFICE Address [address] [place] [address] Care Team Providers Care Architecture Professor Name Role Phone JOSIANE STEWARD Primary Care Provider Assessment No assessment recorded. Plan of Treatment Reminders Order Date Submit Date Provider Last Modified By Organization Details Last Modified Time Details Appointments ESTABLI SHED PATIENT DETAILE D 2024 03:15P M Adryan Ramachandran i, MD Not available Not available Not available Lab None recorde d. Referral None recorde d. Procedures None recorde d. Surgeries None recorde d. Imaging None recorde d. Medication Orders torsemi de 20 mg tablet 2024 025 [email or web address], [address] [place], [address], 01/04/2025 15:32:20 Coreg 6.25 mg tablet 2024 025 [email or web address], [address] [place], [address], 01/04/2025 15:31:11 Bystoli c 5 mg tablet 2024 025 [email or web address], [address] , [place], [address], 03/29/2025 14:41:56 nitrogl ycerin 0.4 mg subling ual tablet 2024 025 [facility] #[id number], [address], [place], [place], [id number], 09/17/2024 16:19:04 Bystoli c 5 mg tablet 2024 025 [id number], [address], [place], [place], [phone], 03/29/2025 14:41:56 Patient TargetsNo targets recorded. Patient Instructions Encounter Date Encounter Id Patient Instructions Last Modified By Organization Details Last Modified Time 01/04/2025 [id number] Exercise advised Low cholesterol diet advised Low sodium diet advised. kim Not available 01/04/2025 15:31:27 Reason for Referral None Reported. Results Created Date Observation Date Name Description Value Unit Range Abnormal Flag Note LastModifiedBy Organization Detail LastModifiedTime 09/20/1909/17/2024 elect rocar diogr am No observ ation record ed. hmesto Not Available 2024 15:54:08 01/21/20 25 01/15/2025 , echo ardio gram No observ ation record ed. hmesto Not Available 2024 18:42:11 02/19/20 25 02/15/2025 elect rocar diogr am No observ ation record ed. hmesto Not Available 2024 16:38:08 03/05/20 25 02/22/2025 elayne can cardi olite stres s test (PROC ) No observ ation record ed. Not Available 2024 08:40:03 Result Notes None recorded. Problems Name Problem SNOMED Code Status Onset Date Resolution Date Notes Provider Name and Address Organization Details Recorded Time Dyspnea on exertion 29760886 Active 2018 Not Available [facility] 3 18:03:57 Pre-surgery testing Active 2018 Not Available [facility] 3 18:03:57 Coronary arteriosclero sis 41077408 Active 2018 Not Available [facility] 3 18:03:56 Essential hypertension 61428475 Active 2018 Not Available [facility] 3 18:03:57 Carcinoma of female breast 555149755 Active 2018 Not Available [facility] 3 18:03:57 Family history of coronary arteriosclero sis 547041160 Active 2018 Not Available [facility] 3 18:03:56 Malignant neoplasm of lung 179705221 Active 2018 Not Available [facility] 3 18:03:57 Angina pectoris 535659990 Active 2019 Not Available [facility] 3 18:03:57 Stented coronary artery 989355893 Active 2019 Not Available [facility] 3 18:03:57 Intermittent claudication 26957268 Active 2019 Not Available [facility] 3 18:03:57 Dyslipidemia 541124881 Active 2019 Not Available [facility] 3 18:03:57 Notes:Has Lung mass, LL lobe . Needs surgical pre-auth for Dr. Argueta. Problem Notes None recorded. Medical Equipment None Reported. Allergies Allergen ID Allergen Name Allergen Category Reaction Reaction Severity Criticality Documentation Date Start Date Code Code System Note Provider Name and Address Organization Details Recorded Time 7932 clopidogr el medicatio n Not available Not available Not available 10/26/2018 51398 RxNorm Pace [facility] [place] - [facility] 9 09:45:21 Medications Name Sig Start Date Stop Date Status Note LastModified by Organization Details LastModified Time metformin 500 mg tablet 1 tablet once day 08/15 completed Not Available Not Available Not Available carvedilo l 25 mg tablet Take 1 tablet twice a day by oral route. 03/29 completed Not Available Not Available Not Available [...] Not Available Not Available Not Avai lable Nizoral A-D 1 % shampoo APPLY TOPICALL Y TWICE A WEEK active Not Available Not Available No t Available azithromy sophie 250 mg tablet 08/21 [...] Not Available Not Available No t Available prednison e 20 mg tablet TAKE 3 TABLETS BY MOUTH DAILY FOR 2 DAYS THEN TAKE 2 TABLETS BY MOUTH DAILY FOR 3 DAYS THEN TAKE 1 TABLET BY MOUTH DAILY FOR 3 DAYS 03/29 completed Not Available Not Available Not Available potassium chloride ER 10 mEq tablet,ex [...] 1 tablet every day by oral route. 03/29 completed Not Available Not Available Not Available diclofena c 1 % topical gel as [...] in Arterial blood by Pulse oximetry Systolic And Diastolic Provider Name and Address Organization Details Last Updated DateTime 5 147.32 cm 30.1 kg/m2 74604.3 g 75 /min 98 % 98 % 202/84 mm[Hg] Leticia [facility] 5 16:00:27 Date Recorded Body height Body mass index (BMI) Body weight Heart rate Oxygen saturation Oxygen saturation in Arterial blood by Pulse oximetry Systolic And Diastolic Provider Name and Address Organization Details Last Updated DateTime 5 147.32 cm 30.2 kg/m2 48445.1 g 72 /min 98 % 98 % 174/73 mm[Hg] Sherry Nam [facility] 5 13:59:14 Date Recorded Body height Body mass index (BMI) Body weight Heart rate Oxygen saturation Oxygen saturation in Arterial blood by Pulse oximetry Systolic And Diastolic Provider Name and Address Organization Details Last Updated DateTime 5 147.32 cm 29.9 kg/m2 64872.7 1 g 60 /min 97 % 97 % 158/70 mm[Hg] Letiica Hull [facility] 5 15:13:54 Date Recorded Body height Body mass index (BMI) Body weight Heart rate Oxygen saturation Oxygen saturation in Arterial blood by Pulse oximetry Systolic And Diastolic Provider Name and Address Organization Details Last Updated DateTime 5 147.32 cm 31.4 kg/m2 41780.9 3 g 64 /min 98 % 98 % 126/80 mm[Hg] Radha Robertson [facility] 5 13:19:45 Date Recorded Body height Body mass index (BMI) Body weight Heart rate Oxygen saturation Oxygen saturation in Arterial blood by Pulse oximetry Systolic And Diastolic Provider Name and Address Organization Details Last Updated DateTime 5 147.32 cm 30.3 kg/m2 59297.6 1 g 78 /min 99 % 99 % 130/70 mm[Hg] Sherry Browning [place] - [facility] 5 14:08:59 Social History Question Answer Notes LastModified by Organizat ion Details LastModified Time Tobacco Smoking Status Former Smoker quit 2 months ago Not Available [facility] 06/09/2020 03:30:40 Live Alone Or With Others? Alone Information not available 10/26/2018 What Was The Date Of Your Most Recent Tobacco Screening? 12/05/2018 [id number] Information not available 06/09/2020 How Many Years Have You Smoked Tobacco? 40 [id number] Information not available 06/09/2020 Sex: Unknown Functional Status Question Answer Note LastModified by Organizat ion Details LastModified Time Do you or have you ever used smokeless tobacco? Former smokeless tobacco user Information not available 10/12/2020 What is your occupation? retired Information not available 10/26/2018 Do you or have you ever used [...] Diagnosis SNOMED-CT Code Diagnosis ICD10 Code Diagnosis IMO Codes Diagnosis Note [id number] MD Laura Hess Office [address] [place] [address] 09/05/2018 15:45:22 09/05/2018 17:06:42 Pre-surgery testing 743294185 Z01.89 Will obtain Treadmill Myoview Stress Test to look for any ischemia. Has a high [place] Risk score. Has Known CAD and/or CAD risk equivalent . Will get echo to look for any structural heart disease Continue maximal medical treatment and risk factor modificati on. However, She cannot tolerate ASA due to stomach upset and is refusing to try and is allergic to Plavix Cannot tolerate any statin due to leg cramping. Has tried Crestor, Lipitor, and Livalo, and simvastamarium n. Consider Repatha. F/u FLP Dyspnea on exertion 6084 5006 R06.09 probably due to her left upper lung mass however could also be angina equivalent . Will obtain Treadmill Myoview Stress Test to look for any ischemia. Has a high [place] Risk score. Has Known CAD and/or CAD risk equivalent . Will get echo to look for any structural heart disease Coronary arteriosclerosis 48295553 I25.10 Has a prior hx of CAD required stent placement x2 over 20 [facility] ago at [facility]. Will review records that was provided. Will obtain Treadmill Myoview Stress Test to look for any ischemia. Has a high [place] Risk score. Has Known CAD and/or CAD risk equivalent . Cannot tolerate ANY statin therapy, ASA, or Plavix. Essential hypertension 75232771 I10 Well controlled on current regimen. Continue. Carcinoma of female breast 354802611 C50.[address] Hawley. Needs surgery. Family his tory of coronary arteriosclerosis 485628018 Z82.49 Her son passed from a [place] at the age of 53. Her father passed from a [place] at the age of 70. Will obtain Treadmill Myoview Stress Test to look for any ischemia. Has a high [place] Risk score. Has Known CAD and/or CAD risk equivalent . Needs maximal medical therapy [place]. [id number] MD Laura Hess Office [address] [place] [address] 09/20/2018 11:21:11 09/20/2018 12:21:11 Pre-surgery testing 578923593 Z01.89 stress test is abnormal The patient [...] look for any ischemia. Has a high [place] Risk score. Has Known CAD and/or CAD risk equivalent . Will get echo to look for any structural heart disease Coronary arteriosclerosis 54121849 I25.10 Has a prior hx of CAD required stent placement x2 over 20 years ago at [facility]. Will review records that was provided. Will obtain Treadmill Myoview Stress Test to look for any ischemia. Has a high [place] Risk score. Has Known CAD and/or CAD risk equivalent . Cannot tolerate ANY statin therapy, ASA, or Plavix. Essential hypertension 46379177 I10 Well controlled on current regimen. Continue. Carcinoma of female breast 267434231 C50.[address] Hawley. Needs surgery. Family his tory of coronary arteriosclerosis 694662596 Z82.49 Her son passed from a [place] at the age of 53. Her father passed from a [place] at the age of 70. Will obtain Treadmill Myoview Stress Test to look for any ischemia. Has a high [place] Risk score. Has Known CAD and/or CAD risk equivalent . Needs maximal medical therapy and risk factor modificati on. Angina pectoris 04117577 0 I20.9 Stented co ronary artery 717772837 Z95.5 [id number] MD Laura Wilcox Office [address] [place] [address] 10/29/2018 10:42:18 10/29/2018 11:25:11 Pre-surgery testing 777442707 Z01.89 pt had cABGshe is going for lung resectionl ow risk for moderate risk surgerycon t Metoprolol and statiin Dyspnea on exertion 6084 5006 R06.09 probably due to her left upper lung mass Coronary arteriosclerosis 04106932 I25.10 Has a prior hx of CAD required stent placement x2 over 20 years ago at [facility]. Will review records that was provided. Cannot tolerate ANY statin therapy, ASA, or Plavix.bud l cut down Metoprolol due to diziness Essential hypertension 56727480 I10 Well controlled on current regimen. Continue. Carcinoma of female breast 235616289 C50.[address] Hawley. Needs surgery. Family his tory of coronary arteriosclerosis 941481176 Z82.49 Her son passed from a [place] at the age of 53. Her father passed from a [place] at the age of 70. Needs maximal medical therapy and risk factor modificati on. Angina pectoris 82465228 0 I20.9 Stented co ronary artery 841677780 Z95.5 [id number] MD Laura Hess Office [facility] [place] [facility] [place] [address] 12/05/2018 14:08:41 12/05/2018 15:06:02 Pre-surgery testing 329157753 Z01.89 pt had cABGshe is going for lung resectionl ow risk for moderate risk surgerycon t Metoprolol Dyspnea on exertion 6084 5006 R06.09 probably due to her left upper lung mass Coronary arteriosclerosis 05994405 I25.10 Has a prior hx of CAD required stent placement x2 over 20 years ago at [facility]. Will review records that was provided. Cannot tolerate ANY statin therapy, ASA, or Plavix.bud l cut down Metoprolol due to diziness Essential hypertension 92982029 I10 Well controlled on current regimen. Continue. Carcinoma of female breast 900693457 C50.[address] Hawley. Needs surgery. Family his tory of coronary arteriosclerosis 476884940 Z82.49 Her son passed from a [place] at the age of 53. Her father passed from a [place] at the age of 70. Needs maximal medical therapy and risk factor modificati on. Angina pectoris 43324966 0 I20.9 Stented co ronary artery 632150236 Z95.5 Intermitte nt claudication 74311481 I73.9 [id number] MD Laura Hess Office [address] [place] [address] 03/13/2019 14:20:10 03/13/2019 15:53:00 Pre-surgery testing 444292892 Z01.89 pt had cABGshe is going for lung resectionl ow risk for moderate risk surgerycon t Metoprolol Dyspnea on exertion 6084 5006 R06.09 probably due to her left upper lung mass Coronary arteriosclerosis 58289588 I25.10 Has a prior hx of CAD required stent placement x2 over 20 years ago at [facility]. Will review records that was provided. Cannot tolerate ANY statin therapy, ASA, or Plavix.bud billy cut down Metoprolol due to wheexing Essential hypertension 56481806 I10 Well controlled on current regimen. Continue. Carcinoma of female breast 938309152 C50.[address] Hawley. Needs surgery. Family his tory of coronary arteriosclerosis 458762313 Z82.49 Her son passed from a [place] at the age of 53. Her father passed from a [place] at the age of 70. Needs maximal medical therapy and risk factor modificati on. Angina pectoris 71945965 0 I20.9 Stented co ronary artery 105630291 Z95.5 Intermitte nt claudication 71407469 I73.9 [id number] MD Laura Hess Office [address] [place] [address] 04/25/2019 09:28:18 04/25/2019 10:32:54 Dyspnea on exertion 44534859 R06.09 probably due to her left upper lung mass 04/25/19The patient states that her PCP stoped the toprol XL due to SOB. The patient states that her breathing has improved since then. Coronary arteriosclerosis 29056533 I25.10 CABG X 2 done in 09/25/18:L DAYRON to mid LAD,reserv ed saphenous vein graft from aorta to D2. Has a prior hx of CAD required stent placement x2 over 20 years ago at [facility]. Will review records that was provided. Feels she can tolerate Simvastati n better than Atorvastat in. ASA, or Plavix.bud billy cut down Metoprolol due to wheexing. PCP stoped metoprolol Essential hypertension 61378027 I10 Well controlled on current regimen. Continue. 04/25/19 BP 148/90 patient states she has not taking medication today, however will after she can eat. Carcinoma of female breast 891238774 C50.[address] Hawley. Needs surgery. Family his tory of coronary arteriosclerosis 018312917 Z82.49 Her son passed from a [place] at the age of 53. Her father passed from a [place] at the age of 70. Needs maximal medical therapy and risk factor modificati on. Angina pectoris 32302440 0 I20.9 Stented co ronary artery 433909317 Z95.5 CABG X 2 done in 09/25/18:L DAYRON to mid LAD,reserv ed saphenous vein graft from aorta to D2. Intermitte nt claudication 79947353 I73.9 Dyslipidemia 184722545 E 78.5 on rosuvastat in 10 mg but want to change to simvastati n 10/07/18 LDL:63 [id number] MD Laura Pollard Office [address] [place] [address] 08/21/2019 13:51:23 08/21/2019 14:51:47 Dyspnea on exertion 83316280 R06.09 probably due to her left upper lung mass 04/25/19The patient states that her PCP stoped the toprol XL due to SOB. The patient states that her breathing has improved since then. Coronary arteriosclerosis 21117325 I25.10 CABG X 2 done in 09/25/18:L DAYRON to mid LAD,reserv ed saphenous vein graft from aorta to D2. Has a prior hx of CAD required stent placement x2 over 20 years ago at [facility]. Will review records that was provided. Feels she can tolerate Simvastati n better than Atorvastat in. ASA, or Plavix.bud billy cut down Metoprolol due to wheezing. PCP stoped metoprolol Essential hypertension 38205048 I10 bp 140/80 Carcinoma of female breast 104887223 C50.[address] Hawley. Needs surgery. Family his tory of coronary arteriosclerosis 924414050 Z82.49 Her son passed from a [place] at the age of 53. Her father passed from a [place] at the age of 70. Needs maximal medical therapy and risk factor modificati on. Angina pectoris 48816121 0 I20.9 Stented co ronary artery 707548238 Z95.5 CABG X 2 done in 09/25/18:L DAYRON to mid LAD,reserv ed saphenous vein graft from aorta to D2. Intermitte nt claudication 04794981 I73.9 Dyslipidemia 142165335 E 78.5 Patient now taking ezetimibe. She could not tolerate simvastati n and rosuvastat in 10/07/18 LDL:63 Peripheral vascular disease 808433726 I73.9 with known Iliac stenosis, will plan Right iliac artery stent [id number] MD Laura Pollard Office [address] [place] [address] 02/27/2020 14:37:40 02/27/2020 15:23:16 Dyspnea on exertion 87617100 R06.09 check echo patient followed by Pulmonary as well 04/25/19The patient states that her PCP stoped the toprol XL due to SOB. The patient states that her breathing has improved since then. Coronary arteriosclerosis 45467909 I25.10 CABG X 2 done in 09/25/18:L DAYRON to mid LAD,reserv ed saphenous vein graft from aorta to D2. occasional chest pains (since CABG , atypical for angina associated with numbness in both arms). Check echo and Holter. consider stress testing next visit Has a prior hx of CAD required stent placement x2 over 20 years ago at [facility]. Will review records that was provided. Feels she can tolerate Simvastati n better than Atorvastat in. ASA, or Plavix.bud l cut down Metoprolol due to wheezing. PCP stoped metoprolol Essential hypertension 03109971 I10 Well controlled Carcinoma of female breast 804146867 C50.[address] Hawley. Family his tory of coronary arteriosclerosis 937440308 Z82.49 Her son passed from a [place] at the age of 53. Her father passed from a [place] at the age of 70. Needs maximal medical therapy and risk factor modificati on. Angina pectoris 44040851 0 I20.9 Stented co ronary artery 264321558 Z95.5 CABG X 2 done in 09/25/18:L DAYRON to mid LAD,reserv ed saphenous vein graft from aorta to D2. Dyslipidemia 979914616 E 78.5 Patient now taking ezetimibe. She could not tolerate simvastati n and rosuvastat in 10/07/18 LDL:63 Peripheral vascular disease 925832145 I73.9 with known Iliac stenosis, will plan Right iliac artery stent Dizziness 246166422 R42 Check echo before next visit.[facility] k 48 HolterWIll d/c torsemide as she appears euvolemic. May take on as needed basis [id number] MD Laura Pollard Office [address] [place] [address] 04/03/2020 10:38:33 04/03/2020 11:51:16 Dizziness 328843908 R42 48 Holter monitor showed no events. WIll d/c torsemide as she appears euvolemic. May take on as needed basis Coronary arteriosclerosis 92072988 I25.10 CABG X 2 done in 09/25/18:L DAYRON to mid LAD,reserv ed saphenous vein graft from aorta to D2. occasional chest pains (since CABG , atypical for angina associated with numbness in both arms). Check echo and Holter. consider stress testing next visit Has a prior hx of CAD required stent placement x2 over 20 years ago at [facility]. Will review records that was provided. Feels [...] breathing has improved since then. Essential hypertension 06248187 I10 Well controlled Carcinoma of female breast 207785910 C50.[address] Hawley. Family his tory of coronary arteriosclerosis 978428719 Z82.49 Her son passed from a [place] at the age of 53. Her father passed from a [place] at the age of 70. Needs maximal medical therapy and risk factor modificati on. Angina pectoris 56463894 0 I20.9 Stented co ronary artery 101029280 Z95.5 CABG X 2 done in 09/25/18:L DAYRON to mid LAD,reserv ed saphenous vein graft from aorta to D2. Dyslipidemia 307701770 E 78.5 Patient now taking ezetimibe. She could not tolerate simvastati n and rosuvastat in 10/07/18 LDL:63 Peripheral vascular disease 918609841 I73.9 with known Iliac stenosis, now with worsening claudicati on. will plan [place] [id number] MD Laura Pollard Office [address] [place] [address] 04/23/2020 14:58:08 04/23/2020 15:45:59 Dizziness 089853432 R42 48 Holter monitor showed no events. WIll d/c torsemide as she appears euvolemic. May take on as needed basis Peripheral vascular disease 655821872 I73.9 s/p peripheral angiogram with 70% lesion. No interventi on. On maximal medical therapy. exercise encouraged . Coronary arteriosclerosis 98073468 I25.10 CABG X 2 done in 09/25/18:L DAYRON to mid LAD,reserv ed saphenous vein graft from aorta to D2. occasional chest pains (since CABG , atypical for angina associated with numbness in both arms). Check echo and Holter. consider stress testing next visit Has a prior hx of CAD required stent placement x2 over 20 years ago at [facility]. Will review records that was provided. Feels [...] breathing has improved since then. Essential hypertension 09579962 I10 Well controlled Carcinoma of female breast 465064627 C50.[address] Hawley. Family his tory of coronary arteriosclerosis 222028325 Z82.49 Her son passed from a [place] at the age of 53. Her father passed from a [place] at the age of 70. Needs maximal medical therapy and risk factor modificati on. Angina pectoris 29142074 0 I20.9 Stented co ronary artery 614915288 Z95.5 CABG X 2 done in 09/25/18:L DAYRON to mid LAD,reserv ed saphenous vein graft from aorta to D2. Dyslipidemia 142202507 E 78.5 Patient now taking ezetimibe. She could not tolerate simvastati n and rosuvastat in 10/07/18 LDL:63 [id number] MD Laura Pollard Office [address] [place] [address] 10/14/2020 16:22:26 10/14/2020 17:20:49 Dizziness 339024588 R42 48 Holter monitor showed no events. WIll d/c torsemide as she appears euvolemic. May take on as needed basis Peripheral vascular disease 342446824 I73.9 s/p peripheral angiogram with 70% lesion. No interventi on. On maximal medical therapy. exercise encouraged . Coronary arteriosclerosis 61427785 I25.10 CABG X 2 done in 09/25/18:L DAYRON to mid LAD,reserv ed saphenous vein graft from aorta to D2. occasional chest pains (since CABG , atypical for angina associated with numbness in both arms). Check echo and Holter. consider stress testing next visit Has a prior hx of CAD required stent placement x2 over 20 years ago at [facility]. Will review records that was provided. Feels [...] breathing has improved since then. Essential hypertension 10224504 I10 Increase amlodipine today Carcinoma of female breast 890564343 C50.[address] Hawley. Family his tory of coronary arteriosclerosis 161546000 Z82.49 Her son passed from a [place] at the age of 53. Her father passed from a [place] at the age of 70. Needs maximal medical therapy and risk factor modificati on. Angina pectoris 45031913 0 I20.9 Stented co ronary artery 711833575 Z95.5 CABG X 2 done in 09/25/18:L DAYRON to mid LAD,reserv ed saphenous vein graft from aorta to D2. Dyslipidemia 421575370 E 78.5 Patient now taking ezetimibe. She could not tolerate simvastati n and rosuvastat in 10/07/18 LDL:63 95094 MD Laura Hess Office [address] [place] [address] 10/28/2020 14:10:58 10/28/2020 14:44:27 Dizziness 843078425 R42 48 Holter monitor showed no events. WIll d/c torsemide as she appears euvolemic. May take on as needed basis Peripheral vascular disease 416734911 I73.9 s/p peripheral angiogram with 70% lesion. No interventi on. On maximal medical therapy. exercise encouraged . Coronary arteriosclerosis 72017533 I25.10 CABG X 2 done in 09/25/18:L DAYRON to mid LAD,reserv ed saphenous vein graft from aorta to D2. occasional chest pains (since CABG , atypical for angina associated with numbness in both arms). Check echo and Holter. consider stress testing next visit Has a prior hx of CAD required stent placement x2 over 20 [facility] ago at [facility]. Will review records that was provided. Feels [...] breathing has improved since then. Essential hypertension 79374736 I10 Will add HCTZ for better BP control Increase Amlodipine 10 mg daily Carcinoma of female breast 013711691 C50.[address] Hawley. Family his tory of coronary arteriosclerosis 909419953 Z82.49 Her son passed from a [place] at the age of 53. Her father passed from a TX at the age of 70. Needs maximal medical therapy and risk factor modificati on. Angina pectoris 62169067 0 I20.9 Stented co ronary artery 313665961 Z95.5 CABG X 2 done in 09/25/18:L DAYRON to mid LAD,reserv ed saphenous vein graft from aorta to D2. Dyslipidemia 859341106 E 78.5 Patient now taking ezetimibe. She could not tolerate simvastati n and rosuvastat in 10/07/18 LDL:63 [id number] Adryan Stevens MD [facility] [address] [place] [address] 12/28/2020 14:46:58 12/28/2020 15:22:34 Essential hypertension 08016535 I10 Fair control on current regimen Dizziness 965249124 R42 48 holter monitor obtained 03/03/2020 showed no events Improved following discontinu ation of HCTZ and decreasing torsemide to PRN Peripheral vascular disease 914455147 I73.9 Peripheral angiogram 04/08/2020 : Moderate peripheral vascular disease. AAA. Stable, asymptomat ic. Coronary arteriosclerosis 12047610 I25.10 s/p 2V CABG ( 9: QUIGLEY to mid LAD, reserved saphenous vein graft from aorta to D2) Continue maximal medical treatment Carcinoma of female breast 365807183 C50.919 Follows with oncology (Dr. Hawley) Family his tory of coronary arteriosclerosis 109622372 Z82.49 Maximal medical therapy and risk factor modificati on Dyslipidemia 403933770 E 78.5 Needs to keep LDL less than 70, and HDL more than 40. 10/07/2018 LDL 63 Continue Zetia; unable to tolerate statins. Will get fasting lipids for follow-up Atypical chest pain 1025 46678 R07.89 Treadmill Myoview Stress test, has high [place] Risk score. Has Known CAD, or CAD risk equivalent . To look for any ischemia. Abdominal aortic aneurysm 650281599 I71.4 CTA abdomen/pe lvis 04/16/2020 : Infrarenal abdominal aortic ectasia, approachin g size criteria for aneurysm (28x29 mm). 2 mm nonobstrut ing left power pole renal stone. Stable left adrenal nodules, most compatible with benign process such as adenomas. Will continue close monitoring with serial CTAs [id number] MD [facility] [address] [place] [address] 08/11/2021 16:32:23 08/11/2021 17:03:44 Essential hypertension 53497527 I10 Fair control on current regimen Dizziness 090925497 R42 48 holter monitor obtained 03/03/2020 showed no events Improved following discontinu ation of HCTZ and decreasing torsemide to PRN Peripheral vascular disease 547482616 I73.9 Peripheral angiogram 04/08/2020 : Moderate peripheral vascular disease. AAA. Stable, asymptomat ic. Coronary arteriosclerosis 71882799 I25.10 s/p 2V CABG ( 9: QUIGLEY to mid LAD, reserved saphenous vein graft from aorta to D2) Continue maximal medical treatmentO btain echo to evaluate for structural /functiona l disease. Carcinoma of female breast 284952617 C50.919 Follows with oncology (Dr. Hawley) Family his tory of coronary arteriosclerosis 565688248 Z82.49 Maximal medical therapy and risk factor modificati on Dyslipidemia 087191783 E 78.5 Needs to keep LDL less than 70, and HDL more than 40. 10/07/2018 LDL 63 Continue Zetia; unable to tolerate statins. Will get fasting lipids for follow-up Atypical chest pain 1025 78445 R07.89 Treadmill Myoview Stress test was negative Abdominal aortic aneurysm 109076448 I71.4 CTA abdomen/pe lvis 04/16/2020 : Infrarenal abdominal aortic ectasia, approachin g size criteria for aneurysm (28x29 mm). 2 mm nonobstrut ing left power pole renal stone. Stable left adrenal nodules, most compatible with benign process such as adenomas. Will continue close monitoring with serial CTAs [id number] MD [facility] [address] [place] [address] 02/21/2022 10:39:11 02/21/2022 12:01:45 Essential hypertension 74358292 I10 Fair control on current regimen Dizziness 551848917 R42 48 holter monitor obtained 03/03/2020 showed no events Improved following discontinu ation of HCTZ and decreasing torsemide to PRN Peripheral vascular disease 715008831 I73.9 Peripheral angiogram 04/08/2020 : Moderate peripheral vascular disease. AAA. Stable, asymptomat ic. Coronary arteriosclerosis 83871736 I25.10 s/p 2V CABG ( 9: QUIGLEY to mid LAD, reserved saphenous vein graft from aorta to D2) Continue maximal medical treatmentO btain echo to evaluate for structural /functiona l disease. Carcinoma of female breast 277705075 C50.919 Follows with oncology (Dr. Hawley) Family his tory of coronary arteriosclerosis 499254130 Z82.49 Maximal medical therapy and risk factor modificati on Dyslipidemia 127458515 E 78.5 Needs to keep LDL less than 70, and HDL more than 40. Continue Zetia; unable to tolerate statins.Wi ll try on Liqview injection Atypical chest pain 1025 25830 R07.89 Treadmill Myoview Stress test was negative Abdominal aortic aneurysm 080061401 I71.4 CTA abdomen/pe lvis 04/16/2020 : Infrarenal abdominal aortic ectasia, approachin g size criteria for aneurysm (28x29 mm). 2 mm nonobstrut ing left power pole renal stone. Stable left adrenal nodules, most compatible with benign process such as adenomas. Will continue close monitoring with serial CTAs [id number] MD [facility] [address] [place] [address] 08/18/2022 11:30:27 08/18/2022 12:27:51 Essential hypertension 70395179 I10 Fair control on current regimen Dizziness 071758393 R42 better Peripheral vascular disease 267476966 I73.9 Peripheral angiogram 04/08/2020 : Moderate peripheral vascular disease. AAA. Stable, asymptomat ic. Coronary arteriosclerosis 81234360 I25.10 s/p 2V CABG ( 9: QUIGLEY to mid LAD, reserved saphenous vein graft from aorta to D2) Continue maximal medical treatmentO btain echo to evaluate for structural /functiona l disease. Carcinoma of female breast 609059769 C50.919 Follows with oncology (Dr. Hawley) Family his tory of coronary arteriosclerosis 769462063 Z82.49 Maximal medical therapy and risk factor modificati on Dyslipidemia 124657465 E 78.5 Needs to keep LDL less than 70, and HDL more than 40. Continue Zetia; unable to tolerate statins.Wi ll try on Liqview injection Atypical chest pain 1025 71986 R07.89 Treadmill Myoview Stress test was negative [id number] Adryan Stevens MD [place] [facility] [address] [place] [address] 02/08/2023 15:26:49 02/08/2023 16:29:52 Essential hypertension 26896735 I10 Fair control on current regimen Dizziness 761361671 R42 better Peripheral vascular disease 507835105 I73.9 Peripheral angiogram 04/08/2020 : Moderate peripheral vascular disease. AAA. Stable, asymptomat ic. Coronary arteriosclerosis 46383002 I25.10 s/p 2V CABG ( 9: QUIGLEY to mid LAD, reserved saphenous vein graft from aorta to D2) Continue maximal medical treatmentO btain echo to evaluate for structural /functiona l disease. Carcinoma of female breast 687555985 C50.919 Follows with oncology (Dr. Hawley) Family his tory of coronary arteriosclerosis 494392510 Z82.49 Maximal medical therapy and risk factor modificati on Dyslipidemia 368713955 E 78.5 Needs to keep LDL less than 70, and HDL more than 40. Continue Zetia; unable to tolerate statins.Wi ll try on Liqview injection Atypical chest pain 1025 72444 R07.89 Treadmill Myoview Stress test was negative [id number] Adryan Stevens MD [place] [facility] [place] [address] 08/15/2023 15:23:56 08/15/2023 16:07:03 Essential hypertension 56390378 I10 Fair control on current regimen Peripheral vascular disease 708623489 I73.9 Peripheral angiogram 04/08/2020 : Moderate peripheral vascular disease. AAA. now with painWill get KATH's Coronary arteriosclerosis 96924717 I25.10 s/p 2V CABG ( 9: QUIGLEY to mid LAD, reserved saphenous vein graft from aorta to D2) Continue maximal medical treatmentO btain echo to evaluate for structural /functiona l disease. Carcinoma of female breast 225226672 C50.919 Follows with oncology (Dr. Hawley) Family his tory of coronary arteriosclerosis 107970474 Z82.49 Maximal medical therapy and risk factor modificati on Dyslipidemia 783056648 E 78.5 Needs to keep LDL less than 70, and HDL more than 40. Continue Zetia; unable to tolerate statins.Wi ll try on Liqview injection [id number] Adryan Stevens MD [place] [facility] [address] [place] [address] 03/12/2024 16:35:48 03/12/2024 17:33:43 Essential hypertension 24953395 I10 Fair control on current regimen Peripheral vascular disease 168388347 I73.9 Peripheral angiogram 04/08/2020 : Moderate peripheral vascular disease. AAA. now with painWill get KATH's Coronary arteriosclerosis 90345723 I25.10 s/p 2V CABG ( 9: QUIGLEY to mid LAD, reserved saphenous vein graft from aorta to D2) Continue maximal medical treatmentO btain echo to evaluate for structural /functiona l disease. Carcinoma of female breast 095555483 C50.919 Follows with oncology (Dr. Hawley) Family his tory of coronary arteriosclerosis 214465720 Z82.49 Maximal medical therapy and risk factor modificati on Dyslipidemia 201727091 E 78.5 Needs to keep LDL less than 70, and HDL more than 40. Continue Zetia; unable to tolerate statins.wa s on Liqviio injection , but had side effect, she stopped it [id number] Adryan Stevens MD [place] [facility] [place] [address] 09/17/2024 15:11:01 09/17/2024 16:21:59 Essential hypertension 84265927 I10 Fair control on current regimen Peripheral vascular disease 694306243 I73.9 Peripheral angiogram 04/08/2020 : Moderate peripheral vascular disease. AAA. Coronary arteriosclerosis 24118733 I25.10 s/p 2V CABG ( 9: QUIGLEY to mid LAD, reserved saphenous vein graft from aorta to D2) Continue maximal medical treatment Carcinoma of female breast 584562770 C50.919 Follows with oncology (Dr. Hawley) Family his tory of coronary arteriosclerosis 633329850 Z82.49 Maximal medical therapy and risk factor modificati on Dyslipidemia 851830881 E 78.5 Needs to keep LDL less than 70, and HDL more than 40. Continue Zetia; unable to tolerate statins.wa s on Liqviio injection , but had side effect, she stopped it Atypical chest pain 1025 13315 R07.89 [id number] Adryan Stevens MD [place] [facility] [address] [place] [address] 10/19/2024 13:48:50 10/19/2024 14:09:58 Essential hypertension 83402149 I10 Fair control on current regimen Peripheral vascular disease 566696094 I73.9 Peripheral angiogram 04/08/2020 : Moderate peripheral vascular disease. AAA. Coronary arteriosclerosis 72240912 I25.10 s/p 2V CABG ( 9: QUIGLEY to mid LAD, reserved saphenous vein graft from aorta to D2) Continue maximal medical treatment Carcinoma of female breast 125715083 C50.919 Follows with oncology (Dr. Hawley) Family his tory of coronary arteriosclerosis 502662277 Z82.49 Maximal medical therapy and risk factor modificati on Dyslipidemia 398459152 E 78.5 Needs to keep LDL less than 70, and HDL more than 40. Continue Zetia; unable to tolerate statins.wa s on Liqviio injection , but had side effect, she stopped it [id number] Adryan Stevens MD [place] [facility] [address] [place] [address] 01/04/2025 15:04:22 01/04/2025 15:36:18 Essential hypertension 62254274 I10 Not well controlled , and she has side effects from BystolicWi ll change to Coreg 6.25 Peripheral vascular disease 338725332 I73.9 Peripheral angiogram 04/08/2020 : Moderate peripheral vascular disease. AAA. Coronary arteriosclerosis 40765287 I25.10 s/p 2V CABG ( 9: QUIGLEY to mid LAD, reserved saphenous vein graft from aorta to D2) Continue maximal medical treatment Carcinoma of female breast 739919515 C50.919 Follows with oncology (Dr. Hawley) Family his tory of coronary arteriosclerosis 149086962 Z82.49 Maximal medical therapy and risk factor modificati on Dyslipidemia 671771898 E 78.5 Needs to keep LDL less than 70, and HDL more than 40. Continue Zetia; unable to tolerate statins.wa s on Liqvio injection , but had side effect, she stopped it Edema of l ower extremity 575404692 R60.0 25353 Obtain echo to evaluate for structural /functiona l disease. [id number] Adryan Stevens MD [place] [facility] [address] [place] [address] 02/15/2025 12:45:56 02/15/2025 14:10:56 Essential hypertension 75798410 I10 Not well controlled , and she has side effects from BystolicWi ll change to Coreg 6.25 Peripheral vascular disease 858955748 I73.9 Peripheral angiogram 04/08/2020 : Moderate peripheral vascular disease. AAA. Coronary arteriosclerosis 55148049 I25.10 s/p 2V CABG ( 9: QUIGLEY to mid LAD, reserved saphenous vein graft from aorta to D2) Continue maximal medical treatment Carcinoma of female breast 521997475 C50.919 Follows with oncology (Dr. Hawley) Family his tory of coronary arteriosclerosis 514145330 Z82.49 Maximal medical therapy and risk factor modificati on Dyslipidemia 690752637 E 78.5 Needs to keep LDL less than 70, and HDL more than 40. Continue Zetia; unable to tolerate statins.wa s on Liqvio injection , but had side effect, she stopped it Edema of l ower extremity 801165739 R60.0 09254 ECHO 01/15/25: LV chamber size is normal. LV wall thickness is mildly increased. The estimated LVEF is 55-60% (normal). There is increased left atrial pressure and Grade II diastolic dysfunctio n. Left Atrium chamber is mildly dilated. The aortic valve is mildly calcified. There is restrictio n of the mitral valve posterior leaflet. There is a dense posterior mitral annular calcificat ion. There is mild tricuspid regurgitat ion. Mild elevation of estimated RV systolic pressure. Atypical chest pain 1025 99591 R07.89 586758 Lexiscan Myoview stress test, pt can not walk. Has known coronary artery disease, with atypical symptoms now [id number] Adryan Stevens MD [place] [facility] [address] [place] [address] 03/29/2025 13:42:34 03/29/2025 14:45:42 Essential hypertension 33574870 I10 Not well controlled , and she has side effects from BystolicWi ll change to Coreg 6.25 Peripheral vascular disease 041641091 I73.9 Peripheral angiogram 04/08/2020 : Moderate peripheral vascular disease. AAA. Coronary arteriosclerosis 89406294 I25.10 s/p 2V CABG ( 9: QUIGLEY to mid LAD, reserved saphenous vein graft from aorta to D2) Continue maximal medical treatment Carcinoma of female breast 455113982 C50.919 Follows with oncology (Dr. Hawley) Family his tory of coronary arteriosclerosis 622880848 Z82.49 Maximal medical therapy and risk factor modificati on Dyslipidemia 115379400 E 78.5 Needs to keep LDL less than 70, and HDL more than 40. Continue Zetia; unable to tolerate statins.wa s on Liqvio injection , but had side effect, she stopped it Edema of l ower extremity 342291462 R60.0 48041 Obtain echo to evaluate for structural /functiona l disease. Health Concerns Section Related Observation LastModified by Organization Detai ls LastModified Time None Recorded Concern Status LastModified by Organization Details LastModified Time None Recorded Advance Directives Directive None Recorded Payers Insurance Date Sequence Insurance Name Policy Number Policy Erickson Covered Member ID Erickson Member ID Guarantor Name 03/29/2025 2 FOR LIFE ( - MEDICARE SUPPLEMENT) Grecia Cheyenne [id number] Grecia Cheyenne 03/29/2025 1 [place] Grecia Cassius Adlerox [id number] Grecia Cheyenne 03/29/2025 2 FOR LIFE ( - MEDICARE SUPPLEMENT) Grecia Cheyenne [id number] Grecia Quinn Notes Date Note Type Note Provider Name and Address Organization Details Recorded Time 5 text/html 09/17/24CC : Cardiac follow [id number] women with a past medical history of [...] placement x2 over 20 years ago at [facility]. *Had CATH done in 09/22/18 revealed severe coronary artery disease with disease noted in the LAD with a severe in stent restenosis,normal LV systolic function,significant disease of right common iliac artery . She has a strong family hx of heart disease on her fathers side. Her son passed from a [place] at the age of 53. Her father passed from a [place] at the age of 70. Results from this visit, or from the past:PT/INR 04-03-2020 PT 13.0 INR 0.95 PTT 33BMP 04/03/2020 NA 139 K 3.8 CH 104 CO2 25 GL 112 BUN 21 CR 0.8 CA 9.0CBC 04/03/2020 WBC 5.5 RBC 4.49 HGB 13.0 HCT 40.4 PLT 37072 : PT 12.0,INR 0.902 ; Na 138,K 3.9,Cl99,Co2 29,BUN 23,Creati 0.90,Glucose 151,Ca 9.1 CBC : WBC 6.6,RBC 4.69,HGB 13.7,HCT 42.5,PLT 95874: Na 138 ,K 3.6, CL 104, CO2 24, GLU 101, BUN 13, CR 0.8,10/07/18: PT 14.0, INR 1.08,PTT : HB 11.0, HT 34.403: TC 121 ,TG 95 ,HDL 39 ,LDL 6764-84-2971VNLCS TYPE O POSCBC Hgb 11.0, PLT 380chem 10/10/18 k 3.6, cr0.8009/25/18 FACTOR XA HEPARIN 0.21abo group + rh type, blood 97-73-3172RIZIA TYPE O POS09/23/18: CA 4.8TSH, serum or plasma 08-92-9598GXR 1.: TSH 0.861lipid panel, blood 82-55-726845/01/19: Na 138, K 3.8 ,CL 105 ,CO2 26, GLU 116 , BUN 19, CR 0.60, TC 261 ,TG 61, HDL 59,LDL 148 ,CBC w/ diff : HB 13.8, HT 42.63-NSR 02/27/20 EKG: Low voltage, chest leads. Poor R progression in chest leads.08/21/2019 : EKG : Low voltage in chest leads ,PoorR progression in chest leads10/14/20-NSREKG (): NSRpoor R progression, NSST changeselectrocardiogram 65-55-9860wkkkmq sinus Rhythm poor R progression,NSST changes ,Prolonged QT when compared with ECG of 09/28/2018,premature atrial complexes no longer presentEKG, 09/05/18: Sinus Rhythm. nonspecific T wave abnormality. Abnormal EKG. [facility] Ct, Angiogram, Chest, W/ Contrast 1) stable [...] and PVC's.Last stress test was done at [facility] over 2 years ago.Had CATH done in [...] systolic function. Abnormal stress rest. ArtifactUS, echocardiogram 10-46-1496AA, Chest 04/16/20:evolving post treatment changes with unchanged [...] Artifact noted. LVEF 76%. Adryan Stevens MD [address] [place], [address], [facility] 09/17/2024 16:19:11 5 text/html 10/19/14CC : Cardiac follow [id number] women with a past medical history of [...] placement x2 over 20 years ago at [facility]. *Had CATH done in 09/22/18 revealed severe coronary artery disease with disease noted in the LAD with a severe in stent restenosis,normal LV systolic function,significant disease of right common iliac artery . She has a strong family hx of heart disease on her fathers side. Her son passed from a [place] at the age of 53. Her father passed from a [place] at the age of 70. Results from this visit, or from the past:PT/INR 04-03-2020 PT 13.0 INR 0.95 PTT 33BMP 04/03/2020 NA 139 K 3.8 CH 104 CO2 25 GL 112 BUN 21 CR 0.8 CA 9.0CBC 04/03/2020 WBC 5.5 RBC 4.49 HGB 13.0 HCT 40.4 PLT 2902809/17/2019 : PT 12.0,INR 0.9009/14/2019 ; Na 138,K 3.9,Cl99,Co2 29,BUN 23,Creati 0.90,Glucose 151,Ca 9.1 CBC : WBC 6.6,RBC 4.69,HGB 13.7,HCT 42.5,PLT 48404: Na 138 ,K 3.6, CL 104, CO2 24, GLU 101, BUN 13, CR 0.8,10/07/18: PT 14.0, INR 1.08,PTT : HB 11.0, HT 34.403: TC 121 ,TG 95 ,HDL 39 ,LDL 3197-33-1123DATNY TYPE O POSCBC Hgb 11.0, PLT 380chem 10/10/18 k 3.6, cr0.8009/25/18 FACTOR XA HEPARIN 0.21abo group + rh type, blood 52-72-7041SBFNA TYPE O POS09/23/18: CA 4.8TSH, serum or plasma 16-49-3824SPK 1.: TSH 0.861lipid panel, blood : Na 138, K 3.8 ,CL 105 ,CO2 26, GLU 116 , BUN 19, CR 0.60, TC 261 ,TG 61, HDL 59,LDL 148 ,CBC w/ diff 11-31-321608/01/19: HB 13.8, HT 42.63-NSR 02/27/20 EKG: Low voltage, chest leads. Poor R progression in chest leads.08/21/2019 : EKG : Low voltage in chest leads ,PoorR progression in chest leads10/14/20-NSREKG (): NSRpoor R progression, NSST changeselectrocardiogram 57-03-6596jcuhcn sinus Rhythm poor R progression,NSST changes ,Prolonged QT when compared with ECG of 09/28/2018,premature atrial complexes no longer presentEKG, 09/05/18: Sinus Rhythm. nonspecific T wave abnormality. Abnormal EKG. [facility] Ct, Angiogram, Chest, W/ Contrast 1) stable [...] and PVC's.Last stress test was done at [facility] over 2 years ago.Had CATH done in [...] myocardial perfusion study w/ ejection fraction (PROC) 55-13-531906/06/19 MYOCARDIAL PERFUSION STUDY: Negative stress test. 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 Normal LV systolic function. Abnormal stress rest. ArtifactUS, echocardiogram 43-76-3661UC, Chest 04/16/20:evolving post treatment changes with unchanged [...] LVEF 76%. Adryan Stevens MD [address] [place], [address], [facility] 10/19/2024 14:24:28 5 text/html 01/04/25CC : Cardiac follow up, [id number]-htc women with a past medical history of [...] placement x2 over 20 years ago at [facility]. *Had CATH done in 09/22/18 revealed severe coronary artery disease with disease noted in the LAD with a severe in stent restenosis,normal LV systolic function,significant disease of right common iliac artery . She has a strong family hx of heart disease on her fathers side. Her son passed from a [place] at the age of 53. Her father passed from a [place] at the age of 70. Results from this visit, or from the past:PT/INR 04-03-2020 PT 13.0 INR 0.95 PTT 33BMP 04/03/2020 NA 139 K 3.8 CH 104 CO2 25 GL 112 BUN 21 CR 0.8 CA 9.0CBC 04/03/2020 WBC 5.5 RBC 4.49 HGB 13.0 HCT 40.4 PLT 53254 : PT 12.0,INR 0.9009/14/2019 ; Na 138,K 3.9,Cl99,Co2 29,BUN 23,Creati 0.90,Glucose 151,Ca 9.1 CBC : WBC 6.6,RBC 4.69,HGB 13.7,HCT 42.5,PLT 60994: Na 138 ,K 3.6, CL 104, CO2 24, GLU 101, BUN 13, CR 0.8,10/07/18: PT 14.0, INR 1.08,PTT : HB 11.0, HT 34.403: TC 121 ,TG 95 ,HDL 39 ,LDL 8539-05-9351OJOCK TYPE O POSCBC Hgb 11.0, PLT 380chem 10/10/18 k 3.6, cr0.802 FACTOR XA HEPARIN 0.21abo group + rh type, blood [id number] TYPE O POS09/23/18: CA 4.8TSH, serum or plasma 12-56-5319YFP 1.: TSH 0.861lipid panel, blood : Na 138, K 3.8 ,CL 105 ,CO2 26, GLU 116 , BUN 19, CR 0.60, TC 261 ,TG 61, HDL 59,LDL 148 ,CBC w/ diff : HB 13.8, HT 42.63/05/27-NSR 02/27/20 EKG: Low voltage, chest leads. Poor R progression in chest leads.08/21/2019 : EKG : Low voltage in chest leads ,PoorR progression in chest leads10/14/20-NSREKG (): NSRpoor R progression, NSST changeselectrocardiogram 49-55-8516naifka sinus Rhythm poor R progression,NSST changes ,Prolonged QT when compared with ECG of 09/28/2018,premature atrial complexes no longer presentEKG, 09/05/18: Sinus Rhythm. nonspecific T wave abnormality. Abnormal EKG. [facility]: Ct, Angiogram, Chest, W/ Contrast 1) stable [...] and PVC's.Last stress test was done at [facility] over 2 years ago.Had CATH done in [...] systolic function. Abnormal stress rest. ArtifactUS, echocardiogram [id number], Chest 04/16/20:evolving post treatment changes with unchanged [...] Artifact noted. LVEF 76%. Adryan Stevens MD [address] [place], [address], [facility] 01/04/2025 15:32:44 5 text/html 02/15/25CC : Cardiac follow up, chest [id number]-fmc women with a past medical history of CAD s/p CABG (09/25/18), HLD, DM is here for 1 month cardiac follow up with labs and ECHO results She was last seen in the clinic on 01/04/25, since then she has chest pain, chest painShe denies ER visits and hospitalizations since she was last seen. Today reports: pt states concerns with medication carvedilol 25 mg bid , pt states having major drowsiness, pt states using half dosage for better results.Denies chest pain. pt states having occasional shooting pain and inflammation in her chest area. pt states feeling short of breath and having a tight feeling while breathing.pt admits occasional shortness of breath at rest. Has mild dyspnea on exertion.No orthopnea. No PNDs.Denies heart palpitations.pt admits frequent dizziness. Denies syncope or near syncope.pt admits daily and nightly ankle and leg edema. pt states feet become numb and cold.No major bleeding events.No reported side effects from medications. Taking medications as prescribed with no missed doses.Denies snoring, daytime somnolence and AM headache.*Last LDL was 86 done on 10/14/22.Pt dose not takes any statins. ECHO 01/15/25: LV chamber size is normal. LV wall thickness is mildly increased. The estimated LVEF is 55-60% (normal). There is increased left atrial pressure and Grade II diastolic dysfunction. Left Atrium chamber is mildly dilated. The aortic valve is mildly calcified. There is restriction of the mitral valve posterior leaflet. There is a dense posterior mitral annular calcification. There is mild tricuspid regurgitation. Mild elevation of estimated RV systolic pressure. Previously:*EKG 09/17/24: Sinus rhythm, P; normal, QRS; [...] temporal lobe, most compatible with a meningioma. *Had Us, Doppler, Arterial on 09/05/23 showed Normal ankle-brachial index. She is on Chemo now for lung cancer *Had negative stress test done in 01/14/21 [...] placement x2 over 20 years ago at [facility]. *Had CATH done in 09/22/18 revealed severe coronary artery disease with disease noted in the LAD with a severe in stent restenosis,normal LV systolic function,significant disease of right common iliac artery . She has a strong family hx of heart disease on her fathers side. Her son passed from a TX at the age of 53. Her father passed from a TX at the age of 70. Results from this visit, or from the past:PT/INR 04-03-2020 PT 13.0 INR 0.95 PTT 33BMP 04/03/2020 NA 139 K 3.8 CH 104 CO2 25 GL 112 BUN 21 CR 0.8 CA 9.0CBC 04/03/2020 WBC 5.5 RBC 4.49 HGB 13.0 HCT 40.4 PLT 7019509/17/2019 : PT 12.0,INR 0.902 ; Na 138,K 3.9,Cl99,Co2 29,BUN 23,Creati 0.90,Glucose 151,Ca 9.1 CBC : WBC 6.6,RBC 4.69,HGB 13.7,HCT 42.5,PLT 4161610/10/18: Na 138 ,K 3.6, CL 104, CO2 24, GLU 101, BUN 13, CR 0.8,10/07/18: PT 14.0, INR 1.08,PTT : HB 11.0, HT 34.403: TC 121 ,TG 95 ,HDL 39 ,LDL [id number] TYPE O POSCBC Hgb 11.0, PLT 380chem 10/10/18 k 3.6, cr0.802 FACTOR XA HEPARIN 0.21abo group + rh type, blood [id number] TYPE O POS09/23/18: CA 4.8TSH, serum or plasma 13-06-2761KEP 1.: TSH 0.861lipid panel, blood 67-69-926052/01/19: Na 138, K 3.8 ,CL 105 ,CO2 26, GLU 116 , BUN 19, CR 0.60, TC 261 ,TG 61, HDL 59,LDL 148 ,CBC w/ diff 12-54-623012/01/19: HB 13.8, HT 42.63-NSR 02/27/20 EKG: Low voltage, chest leads. Poor R progression in chest leads.08/21/2019 : EKG : Low voltage in chest leads ,PoorR progression in chest leads10/14/20-NSREKG (): NSRpoor R progression, NSST changeselectrocardiogram 05-91-2002lykcwz sinus Rhythm poor R progression,NSST changes ,Prolonged QT when compared with ECG of 09/28/2018,premature atrial complexes no longer presentEKG, 09/05/18: Sinus Rhythm. nonspecific T wave abnormality. Abnormal EKG. [facility] [place], Angiogram, Chest, W/ Contrast 1) stable [...] and PVC's.Last stress test was done at [facility] over 2 years ago.Had CATH done in [...] systolic function. Abnormal stress rest. ArtifactUS, echocardiogram [id number], Chest 04/16/20:evolving post treatment changes with unchanged [...] Abnormal stress test. Artifact noted. LVEF 76%. Mary negrete ND - [facility] 03/29/2025 11:34:28 5 text/html *Obtain echo03/29/25CC : Cardiac follow [id number] women with a past medical history of CAD s/p CABG (09/25/18), HLD, DM is here for 1 month cardiac follow up with stress test results. She was last seen in the clinic on 02/15/25, since then she had positive Reversible defect small in size consistent with ischemia in inferior area. Normal LV systolic function. LVEF: 68%.She denies ER visits and hospitalizations since she [...] AM headache.*Last LDL was 86 done on 10/15/22.Pt dose not takes any statins. *Had Negative Lexiscan stress test on 02/22/25 Reversible defect small in size consistent with ischemia in inferior area. Normal LV systolic function. LVEF: 68%. Previously:*EKG 02/15/25: Sinus rhythm, P; normal, QRS; anteroseptal infarct. QS in V1 V2 V3, low voltage in precordial leads, ST-T; normal, conclusion: abnormal ECG. *ECHO 01/15/25: LV chamber size is normal. LV wall thickness is mildly increased. The estimated LVEF is 55-60% (normal). There is increased left atrial pressure and Grade II diastolic dysfunction. Left Atrium chamber is mildly dilated. The aortic valve is mildly calcified. There is restriction of the mitral valve posterior leaflet. There is a dense posterior mitral annular calcification. There is mild tricuspid regurgitation. Mild elevation of estimated RV systolic pressure. *Ct, Angiogram, Chest + Abdomen + Pelvis, [...] unchanged since 08/26/2022. 5. Unchanged 3.3 cm infra renal abdominal aortic aneurysm. 6. 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 *Brain MRI 11/14/23:No evidence of intracranial metastasis. Unchanged 10 mm extra-axial enhancing lesion overlying the right temporal lobe, most compatible with a meningioma. *Had Us, Doppler, Arterial on 09/05/23 showed Normal ankle-brachial index. She is on Chemo now for lung cancer *Had negative stress test done in 01/14/21 [...] placement x2 over 20 years ago at [facility]. *Had CATH done in 09/22/18 revealed severe coronary artery disease with disease noted in the LAD with a severe in stent restenosis,normal LV systolic function,significant disease of right common iliac artery . She has a strong family hx of heart disease on her fathers side. Her son passed from a TX at the age of 53. Her father passed from a TX at the age of 70. Results from this visit, or from the past:PT/INR 04-03-2020 PT 13.0 INR 0.95 PTT 33BMP 04/03/2020 NA 139 K 3.8 CH 104 CO2 25 GL 112 BUN 21 CR 0.8 CA 9.0CBC 04/03/2020 WBC 5.5 RBC 4.49 HGB 13.0 HCT 40.4 PLT 2511809/17/2019 : PT 12.0,INR 0.902 ; Na 138,K 3.9,Cl99,Co2 29,BUN 23,Creati 0.90,Glucose 151,Ca 9.1 CBC : WBC 6.6,RBC 4.69,HGB 13.7,HCT 42.5,PLT 96744: Na 138 ,K 3.6, CL 104, CO2 24, GLU 101, BUN 13, CR 0.8,10/07/18: PT 14.0, INR 1.08,PTT : HB 11.0, HT 34.403: TC 121 ,TG 95 ,HDL 39 ,LDL [id number] TYPE O POSCBC Hgb 11.0, PLT 380chem 10/10/18 k 3.6, cr0.802 FACTOR XA HEPARIN 0.21abo group + rh type, blood [id number] TYPE O POS09/23/18: CA 4.8TSH, serum or plasma [id number] 1.: TSH 0.861lipid panel, blood 87-07-211345/01/19: Na 138, K 3.8 ,CL 105 ,CO2 26, GLU 116 , BUN 19, CR 0.60, TC 261 ,TG 61, HDL 59,LDL 148 ,CBC w/ diff : HB 13.8, HT 42.63-NSR 02/27/20 EKG: Low voltage, chest leads. Poor R progression in chest leads.08/21/2019 : EKG : Low voltage in chest leads ,PoorR progression in chest leads10/14/20-NSREKG (): NSRpoor R progression, NSST changeselectrocardiogram 56-85-4608mdcoce sinus Rhythm poor R progression,NSST changes ,Prolonged QT when compared with ECG of 09/28/2018,premature atrial complexes no longer presentEKG, 09/05/18: Sinus Rhythm. nonspecific T wave abnormality. Abnormal EKG. [facility] [place]: Ct, Angiogram, Chest, W/ Contrast 1) stable [...] and PVC's.Last stress test was done at [facility] over 2 years ago.Had CATH done in [...] systolic function. Abnormal stress rest. ArtifactUS, echocardiogram [id number], Chest 04/16/20:evolving post treatment changes with unchanged [...] Artifact noted. LVEF 76%. Adryan Stevens MD [address] [place], [address], [facility] 03/29/2025 14:42:51 OBGyn Episode No OBEpisode recorded.
== END 2025-06-11 10:48 | disposition home or self-care (01) ==
LOC: ANHLAB 10:50
PROVIDERS: PCP Nurse Practitioner Family; Visit Provider Specialist
DX: E78.5 Hyperlipidemia, unspecified (principal); I10 Essential (primary) hypertension
CPT/HCPCS: 36415; 80053; 80061; 82550

== ENCOUNTER 2025-06-26 14:46 | Outpatient (CLI) | payer MEDICARE, OTHER, SELFPAY ==
--- NOTE | ~2025-06-26 | DEXA_ITS ---
Bone Density Report Name: UMAIR MCHUGH Age: 85 Sex: Female Ethnicity: Date of : 1940 Indication: osteopenia; monitoring treatment; height loss; cancer; hysterectomy; Referring Provider: VIKASH PRESCOTT Study: Bone densitometry was performed. Exam Date: June 26, 2025 Accession number: [id number] Bone Density: Region BMD T-score Z-score Classification AP Spine(L1-L4) 1.092 0.4 3.2 Normal Femoral Neck (Left) 0.517 -3.0 -0.5 Osteoporosis Total Hip (Left) 0.837 -0.9 1.4 Normal Femoral Neck (Right) 0.608 -2.2 0.3 Osteopenia Total Hip (Right) 0.838 -0.9 1.4 Normal Total Hip Mean 0.837 -0.9 1.4 Normal World Health Organization criteria for BMD impression classify patients as: Normal (T-score at or above -1.0), Osteopenia (T-score between -1.0 and -2.5), or Osteoporosis (T-score at or below -2.5). 10-year Fracture Risk: FRAX not reported because: Some T-score for Spine Total or Hip Total or Femoral Neck at or below -2.5 Treated for osteoporosis Previous Exams: Region Exam Age BMD T-score BMD Change BMD Change Date g/cm2 vs Baseline vs Previous AP Spine (L1-L4) 06/26/2025 85 1.092 0.4 0.187 (20.7%)* 0.134 (14.0%)* 05/04/2023 82 0.958 -0.8 0.053 (5.8%)* 0.012 (1.2%) 05/22/2018 78 0.946 -0.9 0.041 (4.6%)* 0.041 (4.6%)* 01/18/2016 75 0.905 -1.3 Total Hip(Left) 06/26/2025 85 0.837 -0.9 0.045 (5.7%)* 0.029 (3.6%)* 05/04/2023 82 0.808 -1.1 0.016 (2.0%) -0.028 (-3.3%) 04/25/2022 81 0.836 -0.9 0.044 (5.5%)* 0.014 (1.8%) 04/22/2021 80 0.821 -1.0 0.029 (3.7%)* -0.005 (-0.6%) 05/22/2018 78 0.826 -1.0 0.034 (4.3%)* 0.034 (4.3%)* 01/18/2016 75 0.792 -1.2 Total Hip(Right) 06/26/2025 85 0.838 -0.9 0.059 (7.6%)* 0.034 (4.2%)* 05/04/2023 82 0.804 -1.1 0.026 (3.3%) -0.039 (-4.6%) 04/25/2022 81 0.843 -0.8 0.064 (8.3%)* 0.028 (3.5%)* 04/22/2021 80 0.815 -1.0 0.036 (4.6%)* -0.081 (-9.1%) 05/22/2018 78 0.896 -0.4 0.117 (15.0%)* 0.117 (15.0%)* 01/18/2016 75 0.779 -1.3 *Denotes significance at 95% confidence level, LSC for AP Spine = 0.022 g/cm2, LSC for Total Hip = 0.027 g/cm2 Clinical Information Provided by Patient: Is being treated for osteoporosis Has used the following medications: Prolia (i.e. denosumab), Calcium Has the following medical conditions: Cancer, Hysterectomy Patient maximum height was 58 Menopause Age: 36 No regular weight bearing exercise Drinks caffeinated beverages Onset of menses at age 14 Number of children 3 Impression: The patient has osteoporosis, based on the Left Femoral Neck T-score. No significant bone loss was observed. Discussion: PATIENT UNDER TREATMENT WITH NO SIGNIFICANT BMD LOSS SINCE LAST EXAM. In an untreated patient, BMD typically declines with age. A lack of decline or gain is usually a sign that treatment is efficacious and fracture risk is reduced. It is important to ask patients whether they are taking their medications and to encourage continued and appropriate compliance with their osteoporosis therapies to reduce fracture risk. It is also important to review their risk factors and encourage appropriate calcium and vitamin D intakes, exercise, fall prevention and other lifestyle measures. Follow-Up: Consider a repeat BMD and Vertebral Fracture Assessment (VFA) exam in 2 years or sooner if medically necessary, to reassess this patient's status. Reported by: ARMEN on 06/26/2025 3:34:00 PM. Reviewed, dictated and finalized at location A.
--- NOTE | ~2025-06-26 | MM_ITS ---
EXAMINATION: MM screening [facility] BI w veronica HISTORY: Screening TECHNIQUE: Craniocaudal and mediolateral oblique 3-D tomosynthesis images were obtained and synthetic 2-D images were generated. CAD analysis was submitted and interpreted. COMPARISON: Comparison to multiple prior studies sequentially, with oldest reviewed study dated 07/21/2018. BREAST PARENCHYMAL COMPOSITION: Not dense: There are scattered areas of fibroglandular density. FINDINGS: There is a benign appearing mass in the upper outer quadrant of the left breast, consistent with intramammary lymph node. There is no evidence of suspicious mass, calcification, or architectural distortion to suggest malignancy in either breast. There has been no suspicious interval change. IMPRESSION: 1. No mammographic evidence of malignancy. 2. Recommend routine screening mammography in one year. BI-RADS Category 2: Benign finding(s). Reviewed, dictated and finalized at location O. O INTERFERENCE SUPERVISOR
--- OUTSIDE RECORDS SUMMARY | 2025-06-26 17:46 | XMS_ITS | Clinical Summary ---
Author Organization [facility] [address] Address [address] [place] [address] Care Team Providers Care [facility] Pathology Teacher Name Role Phone Kaushik Gonzalez DO Unavailable Navjot Danielson MD Unavailable [phone] Rinku Hoffmann MD Unavailable [phone] Adryan Stveens MD Unavailable [phone] Romel Valerio MD PhD Unavailable Rachel Ramirez MD Unavailable [phone] Ivis Okeefe MD Unavailable [phone] Chandni Vang NP Primary Care Provider [phone] Allergies Active Allergy Reactions Criticality Noted Date Comments Fluticasone Propion-Salmeterol Other (See comments) Low 07/28/2020 Mouth sores Codeine Dizziness Low 01/16/2025 Fluticasone Hives Medium 01/16/2025 Other Other (See comments) Low 03/21/2022 Skin breakout from paper mask Clopidogrel Hives Medium 08/16/2018 Salmeterol Hives Medium 01/16/2025 Tiotropium [place] Hives Medium 04/02/2019 Sulfamethoxazole Nausea & Vomiting Low 01/16/2025 Tiotropium Hives Medium 01/16/2025 Medications denosumab (PROLIA) 60 mg/mL syringe Inject 1 mL (60 mg total) under the skin every 6 (six) months Every 6 months. 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 Active omeprazole (PriLOSEC) 10 mg capsule Take 1 capsule (10 mg total) by mouth daily Active blood-glucose meter misc OneTouch Verio Flex Meter USE DIRECTED Active OneTouch Verio Flex meter misc as directed 08/17/19 22 Active cholecalciferol (VITAMIN D-3) 2000 unit capsule Take 1 capsule (2,000 Units total) by mouth daily after lunch Active calcium citrate/vitamin D3 (CITRACAL + D ORAL) Take 1 tablet by mouth daily after lunch Active triamcinolone (KENALOG) 0.1 % cream Apply topically 2 (two) times a day Apply to neck- not to face 453 g 08/15/19 23 Active Additional Information Patient taking differently:topicalAs needed, Apply to neck- not to face, breaks out on tagrisso, use on affected area, Informant: Self, Reported on 06/18/2025 albuterol 2.5 mg /3 mL (0.083 %) nebulizer solutionIndicat ions:Chronic obstructive pulmonary disease, unspecified COPD type (HCC) USE 1 VIAL IN NEBULIZER EVERY 6 HOURS - as needed for wheezing or shortness of breath 3 mL 11 08/29/19 25 Active Additional Information Patient taking differently: 2.5 mg As needed, Informant: Self, Reported on 06/20/2025 osimertinib (Tagrisso) 80 mg tablet TAKE 1 TABLET DAILY 90 tablet 3 09/17/19 25 Active nitroglycerin (NITROSTAT) 0.4 mg SL tablet as needed 09/17/19 25 Active estradioL (ESTRACE) 0.01 % (0.1 mg/gram) vaginal cream 3 times a week but forgets sometimes 09/15/19 25 Active carvediloL (COREG) 25 mg tablet Take 0.5 tablets (12.5 mg total) by mouth nightly Was supposed to take it BID but her blood pressure drops Active lidocaine-prilo sorin cream APPLY TOPICALLY TO THE AFFECTED AREA NEEDED FOR PAIN Active methylPREDNISol one (MEDROL DOSEPACK) 4 mg Dosepack Take as directed on package 1 packet 06/20/20 25 2024 Active candesartan (ATACAND) 32 mg tablet Take 1 tablet (32 mg total) by mouth nightly 4 hours before cancer meds 2024 Discontinued(T herapy completed) folic acid (FOLVITE) 1 mg tabletIndicatio ns:Persons encountering health services in other specified circumstances,N on-small cell cancer of left lung (HCC) Take 1 tablet by mouth daily starting 7 days before the first treatment and continuing until 21 days after the last pemetrexed treatment 30 tablet 5 05/31/20 22 2021 Discontinued diclofenac sodium (VOLTAREN) 1 % gel 1 g 06/17/20 24 2024 Discontinued(T herapy completed) famotidine (PEPCID) 40 mg tablet Take 1 mg every day by oral route. 2024 Discontinued(T herapy completed) Nizoral A-D 1 % shampoo APPLY TOPICALLY TWICE A WEEK 2024 Discontinued(T herapy completed) furosemide (LASIX) 20 mg tablet Take 1 tablet (20 mg total) by mouth 01/17/20 25 2024 Discontinued(T herapy completed) amoxicillin-cla vulanate (AUGMENTIN) 875-125 mg per tablet Take 1 tablet by mouth 2 (two) times a day 05/29/202024 Discontinued(T herapy completed) azithromycin (ZITHROMAX) 250 mg tablet Take 2 by mouth today then 1 daily for 4 days 6 tablet 06/20/202024 Active Problems Problem Noted Date Diagnosed Date Lung nodule 06/18/2025 AAA (abdominal aortic aneurysm) 06/18/2025 Anemia 06/18/2025 Chronic fatigue 06/18/2025 Diverticulosis of colon 06/18/2025 Herpes zoster 06/18/2025 Osteoporosis 06/18/2025 Recurrent UTI 06/18/2025 Type 2 diabetes mellitus wit hout complication, without long-term current use of insulin 06/18/2025 Disorder of parathyroid gland, unspecified 06/18 Closed fracture of fourth metatarsal of left arturo t 06/18/2025 Nocturnal hypoxemia 10/30/2023 Hyperlipemia 09/15/2023 Disease of cardiovascular system 09/15/2023 Sleep disorder 05/25/2023 Persons encountering health services in other specified circumstances 04/19/2022 Mass of upper lobe of left lung 03/18/2022 Overview (03/18/2022): Added automatically from request for surgery [id number] BMI 30.0-30.9,adult 11/29/2021 Consolidation of left upper lobe of lung 022 Overview (09/01/2021): Added automatically from request for surgery [id number] Overweight 07/05/2021 Angina pectoris 08/18/2019 Hypothyroidism, unspecified 04/05/2019 Fibromyalgia 04/05/2019 Cigarette nicotine dependence in remission 04/02 Hyperinflation [...] Encounters Date Type Department Care Team Description 06/23/2025 Results Follow-Up [facility] Pulmonology [address] [place] [address] Rachel Ramirez MD Cytology 06/20/2025 7:30 AM CASEWORK MANAGER - 06/20/2025 9:44 AM CASEWORK MANAGER Surgery [facility] [place] [address] [place] [address] Rachel Ramirez MD ION PROCEDURE,ROBOTIC ASSISTED NAVIGATIONAL BRONCHOSCOPY WITH 3D-CT AND FLUOROSCOPY 06/20/2025 7:22 AM CASEWORK MANAGER [place] [facility] [place] [address] [place] [phone] Rick Ureña MD Lynn, Lori Frances, TOOL AND DIE TECHNICIAN 06/20/2025 5:21 AM CASEWORK MANAGER - 06/20/2025 11:29 AM CASEWORK MANAGER Hospital Encounter [facility] [place] [address] [place] [address] Rachel Ramirez MD Non-small cell cancer of left lung (HCC); Lung nodule Discharge Disposition: Discharge to home or self care 06/20/[address] [facility] Medical Office Building 2 Radiation Oncology [address] [place] [phone] Ashlie Kong 06/20/[address] [facility] Medical Office Building 2 Radiation Oncology [address] [place] [phone] Ashlie Kong 06/20/2025 Documentation [facility] Pulmonology [address] [place] [phone] Ramona Keenan, RN 06/18/2025 Orders Only [facility] PreAdmission Testing [address] [place] [address] Gabi Ulrich RN 06/18/2025 Orders Only [facility] Pulmonology [address] [place] [address] Rachel Ramirez MD Non-small cell cancer of left lung (HCC) (Primary Dx); Mass of upper lobe of left lung; Lung nodule 06/17/2025 3:15 PM CASEWORK MANAGER Office Visit [facility] Oncology [address] [place] [phone] Romel Valerio MD PhD Malignant neoplasm of overlapping sites of left lung (HCC) (Primary Dx) 06/17/2025 2:45 PM CASEWORK MANAGER Clinical Support [facility] Cancer [address] [address] Malignant neoplasm of overlapping sites of left lung (HCC) 06/13/2025 1:03 PM CASEWORK MANAGER - 06/13/2025 11:59 PM CASEWORK MANAGER Hospital Encounter [facility] Medical Office Building [address] [address] Malignant neoplasm of overlapping sites of left lung (HCC) Discharge Disposition: Discharge to home or self care 06/03/2025 1:15 PM CDT Clinical Support [address] [address] Malignant neoplasm of overlapping sites of left lung (HCC) 05/28/2025 Results Follow-Up [facility] Oncology [address] [place] [phone] Malika Cardenas, VIKASH Comprehensive metabolic panel, CBC with auto differential, Differential, auto, eGFR 05/20/2025 3:00 PM CDT Office Visit [facility] Oncology [address] [place] [phone] Tor Loera PA Malignant neoplasm of overlapping sites of left lung (HCC) (Primary Dx) 05/20/2025 2:30 PM CDT Clinical Support [address] [address] Malignant neoplasm of overlapping sites of left lung (HCC) 05/13/2025 2:23 PM CDT - 05/13/2025 11:59 PM CDT Hospital Encounter [facility] [address] [place] [address] Malignant neoplasm of overlapping sites of left lung (HCC) Discharge Disposition: Discharge to home or self care 05/13/2025 2:22 PM CDT - 05/13/2025 11:59 PM CDT Hospital Encounter [facility] MRI [address] [place] [address] Malignant neoplasm of overlapping sites of left [...] disease 09/15/2023 Disease of cardiovascular system 09/15/2023 PONV (postoperative nausea a nd vomiting) Atrial fibrillation (HCC) in the past Urinary tract infection frequent , from newer medications Obesity Arthritis osteo only Family History Medical History Relation Name Comments [...] Frequency of Alcohol Consumption Not on file 06/20/2025 Q2: How many drinks containi ng alcohol do you have on a typical day when you are drinking? Patient does not drink Frequency of Binge Drinking Not on file 06/07 Personal Safety Answer Date Recorded Have you ever been in or are you currently in a harmful physical or emotional relationship or is someone making you feel afraid or unsafe? Denies 06/20/2025 Comments Unknown Sex and Gender Information Value Date Recorded Sex Assigned at Not on file Legal Sex Female 4:07 AM CASEWORK MANAGER Gender Identity Not on file Sexual Orientation Not on file Last Filed Vital Signs Vital Sign Reading Time Taken Comments Blood Pressure 157/74 06/20/2025 10:10 AM CASEWORK MANAGER Pulse 78 06/20/2025 11:00 AM CASEWORK MANAGER Temperature 36.5 C (97.7 F) 06/20/2025 9:40 AM CASEWORK MANAGER Respiratory Rate 20 06/20/2025 11:0 0 AM CASEWORK MANAGER Oxygen Saturation 97% 06/20/2025 11: 00 AM CASEWORK MANAGER Inhaled Oxygen Concentration - - Weight 64.3 kg (141 lb 11.2 oz) 06/20/2025 7:03 AM CASEWORK MANAGER Height 144.8 cm (4' 9) 06/18/2025 1:38 PM CASEWORK MANAGER Body Mass Index 30.66 06/18/2025 1:38 PM CASEWORK MANAGER Plan of Treatment Health Maintenance Due Date Last Done Comments Albumin Creatinine Ratio, Urine 1940 Depression Screening 1940 Osteoporosis Screening-Bone Density Scan 1940 Dilated Eye Exam 1940 Foot Exam 1940 DTaP/Tdap/Td Vaccine (1 - Tdap) 1952 Hepatitis B Screening 1959 Pneumococcal vaccine 65+ (1 of 2 - PCV) 1960 Zoster Vaccine (1 of 2) 1960 Well Visit 65+ 2006 Hemoglobin A1C 03/24/2019 09/24/2018, 09/21/2018 Lipid Panel 10/08/2019 10/07/2018, 09/21/2018 Covid-19 Vaccine (3 - Pfizer risk series) 02/20/2021 01/23/2021, 01/02/2021 Influenza Vaccine (#1) 2025 eGFR 06/17/2026 06/17/2025, 05/08, 05/20/2025, Additional history exists Fall Risk Assessment 06/20/2026 06/20/2025 Medical Devices Implanted Type Area Process Developer Device Identifier Shelf Expiration Date Model / Serial / Lot Cardiac Stent Coronary Artery [employer] Xcela Power Port 8fr [id number] - [id number] Implanted:Qty: 1 on 06/03/2022 at [facility] [employer] 02/06/2027 [id number] / / [id number] Procedures Procedure Name Priority Date/Time Associated Diagnosis Comments XR CHEST 1 VIEW ED Urgent/IP Urgent 06/20/2025 9:20 AM CASEWORK MANAGER POCT GLUCOSE DEVICE Routine 06/20/2025 9 :12 AM CASEWORK MANAGER FL FLUOROSCOPY < 1 HOUR IP Routine 06/20/2025 8:49 AM CASEWORK MANAGER CYTOLOGY Routine 06/20/2025 8:25 AM CASEWORK MANAGER Lung nodule GA AN PROCEDURE PLACEHOLDER Routine 06/20/2025 7:34 AM CASEWORK MANAGER GA AN ELECTIVE ENDOTRACHEAL AIRWAY Routine 06/20/2025 7:34 AM CASEWORK MANAGER BRONCHOSCOPY ENDOBRONCHIAL ULTRASOUND 06/20/2025 7:24 AM CASEWORK MANAGER Lung nodule ION PROCEDURE 06/20/2025 7:24 AM CASEWORK MANAGER Lung nodule APTT Routine 06/20/2025 6:51 AM CASEWORK MANAGER PROTIME-INR Routine 06/20/2025 6:51 AM CASEWORK MANAGER POCT GLUCOSE DEVICE Routine 06/20/2025 6 :[address] CHEST WO CONTRAST Schedule Routine, Read Routine (OP Routine) 06/20/2025 5:41 AM CASEWORK MANAGER Non-small cell cancer of left lung (HCC) Lung nodule CYTOLOGY Routine 06/20/2025 12:00 AM CASEWORK MANAGER Lung nodule SURGICAL PATHOLOGY Routine 06/20/2025 12 :00 AM CASEWORK MANAGER Lung nodule EGFR Routine 06/17/2025 2:44 PM CASEWORK MANAGER Malignant neoplasm of overlapping sites of left lung (HCC) DIFFERENTIAL AUTO Routine 06/17/2025 2:4 4 PM CASEWORK MANAGER Malignant neoplasm of overlapping sites of left lung (HCC) CBC WITH AUTO DIFFERENTIAL Routine 06/17/2025 2:44 PM CASEWORK MANAGER Malignant neoplasm of overlapping sites of left lung (HCC) COMPREHENSIVE METABOLIC PANEL Routine 06/17/2025 2:44 PM CASEWORK MANAGER Malignant neoplasm of overlapping sites of left lung (HCC) PET/CT FDG SKULL TO THIGH Schedule Routine, Read Routine (OP Routine) 06/13/2025 2:36 PM CASEWORK MANAGER Malignant neoplasm of overlapping sites of left lung (HCC) POCT GLUCOSE DEVICE Routine 06/13/2025 1 :10 PM CASEWORK MANAGER EGFR Routine 06/03/2025 1:23 PM CDT Malignant neoplasm of overlapping sites of left lung (HCC) BASIC METABOLIC PANEL Routine 06/03/2025 1:23 PM CDT Malignant neoplasm of overlapping sites of left lung (HCC) EGFR Routine 05/20/2025 2:14 PM CDT Malignant neoplasm of overlapping sites of left lung (HCC) DIFFERENTIAL AUTO Routine 05/20/2025 2: 14 PM CDT Malignant neoplasm of overlapping sites [...] of overlapping sites of left lung (HCC) TNI WITH LIPID PANEL Routine 10/07/2018 6:14 PM CASEWORK MANAGER HEMOGLOBIN A1C Routine 09/24/2018 5:29 AM CASEWORK MANAGER from Last 3 Months or Most Recently Relevant to Health Maintenance Results * XR Chest 1 View (06/20/2025 9:20 AM CASEWORK MANAGER) Anatomical Region Laterality Modality Body, Chest N/A Computed Radiogr aphy 06/20/2025 9:52 AM CASEWORK MANAGER Impressions 06/20/2025 9:52 AM CASEWORK MANAGER 1. Stable radiographic appearance of abnormal chest as above. 2. Please reference CT chest performed earlier same day for further evaluation. Electronically signed by: Rinku Garcia M.D. Narrative 06/20/2025 9:52 AM CASEWORK MANAGER EXAMINATION: XR CHEST 1 VIEW HISTORY: Post bronchoscopy today. No provided patient complaints. TECHNIQUE: Frontal radiographic view(s) acquired of the chest. Images saved to PACS. COMPARISON: CT chest without contrast performed earlier same day (images without report) and with contrast 05/13/2025; chest radiograph 05/26/2022 and: PET/CT 06/13/2025. FINDINGS: Trachea midline. Visualized cardiomediastinal silhouette stable and better evaluated on recent CT imaging. Stable appearance of lung de la cruz better evaluated on above-listed multimodal imaging. No pleural effusion. No pneumothorax. Stable appearance of CT compatible infusion port assembly. No acute osseous abnormality. Procedure Note Rinku Garcia MD - 06/20/2025 EXAMINATION: XR CHEST 1 VIEW HISTORY: Post bronchoscopy today. No provided patient complaints. TECHNIQUE: Frontal radiographic view(s) acquired of the chest. Images saved to PACS. COMPARISON: CT chest without contrast performed earlier same day (images without report) and with contrast 05/13/2025; chest radiograph 05/26/2022 and: PET/CT 06/13/2025. FINDINGS: Trachea midline. Visualized cardiomediastinal silhouette stable and better evaluated on recent CT imaging. Stable appearance of lung de la cruz better evaluated on above-listed multimodal imaging. No pleural effusion. No pneumothorax. Stable appearance of CT compatible infusion port assembly. No acute osseous abnormality. IMPRESSION: 1. Stable radiographic appearance of abnormal chest as above. 2. Please reference CT chest performed earlier same day for further evaluation. Electronically signed by: Rinku Garcia M.D. Rachel Ramirez MD IMG XR PROCEDURES Final Res ult * POCT glucose (06/20/2025 9:12 AM CASEWORK MANAGER) Glucose, POC 132 70 - 199 mg/dL Glucose comment 1 RN/MD Notified ABDIEL Blood 06/20/2025 9:12 AM CASEWORK MANAGER 06/20/2025 9:12 AM CASEWORK MANAGER Rachel Ramirez MD LAB POCT ORDERABLES - DEVIC E Final Result ABDIEL WALKER [address] [facility] Department [place] [address] * FL Fluoroscopy < 1 Hour (06/20/2025 8:49 AM CASEWORK MANAGER) Narrative [facility] - 06/20/2025 8:50 AM CASEWORK MANAGER The images from this study are not interpreted by Radiology. Please refer to the physician's procedure / OR operative note. Rachel Ramirez MD IMG FLUOROSCOPY PROCEDURES Final Result DANY_COLLEEN_MADAI_MHE * Cytology (06/20/2025 8:25 AM CASEWORK MANAGER) Fine needle aspirate (Lung (Cytology)) 06/20/2025 8:03 AM CASEWORK MANAGER Narrative PATHOLOGY [facility] - 06/23/2025 11:32 AM CASEWORK MANAGER EPIC results best viewed via link to PDF [facility] [place] [address] Note to Patients: This report may contain a detailed description of human tissue sent by a health care provider to the laboratory for pathologic evaluation. The content of this report is essential for diagnosis and may provide important critical findings. This information may be unfamiliar to patients to review without a medical professional present. It is advised that the patient review this report in the presence of a health care provider who can answer questions and explain the details. CYTOPATHOLOGY REPORT FINAL Patient Name: GRECIA QUINN Gender: F : 1940 (Age: 85) Address: [address] [place] [address] Hospital #: [id number] Taken:06/20/2025 Received:06/20/2025 Reported: 06/23/2025 Patient Type: [facility] Service: Surgery Location: Physician(s): Marly Pacheco NP FINAL DIAGNOSIS A. Lung, left upper lobe, ION fine needle aspiration: - Non-small cell carcinoma, consistent with the patient's known lung adenocarcinoma Comments The cell block confirms the diagnosis. There are too few cells in the cell block for molecular testing. Please also refer to the concurrent biopsy ([id number]). [facility]/06/23/2025 11:32 By this signature, I attest that the above diagnosis is based upon my personal examination of the slides(and/or other material indicated in the diagnosis). Romero Gill M.D. Report Electronically Reviewed and Signed Out By Romero Gill M.D. 06/23/2025 11:32:54 Navjot Loya, [facility]), [facility] Gross Description A. Lung, left upper lobe, ION fine needle aspiration: Received 1 alcohol fixed smear(s), 1 air-dried smear(s), and 1 container(s) of needle rinses in Cytorich red. Processed 1 Pap stained smear(s) and 1 Diff-Quik stained smear(s). 1 cell block prepared from needle rinse tube. Aspirated by Clinician. ([facility]) Clinical Diagnosis and History lung nodule Immediate Evaluation A. Lung, left upper lobe, ION fine needle aspiration: Evaluation Episode 1 Overall Adequacy: Indeterminate Total Evaluation Episodes: 1 Preliminary Diagnosis: Atypical cells Hermelinda Penn M.D. 06/20/2025 Microscopic slide review and interpretation for this case was performed at [facility], Department of Surgical Pathology, [address] [facility], [place] [id number], [place] [id number] CLIA # [id number] REPORT IMAGES AND SCANNED DOCUMENTS, IF INCLUDED, ONLY VIEWABLE IN PDF VERSION OF REPORT The performance characteristics of some immunohistochemical stains, in-situ hybridization and fluorescence in-situ hybridization tests and immunophenotyping by flow cytometry cited in this report (if any) were determined by the Surgical Pathology and Flow Cytometry Departments at [facility] as part of an ongoing manufacturing quality inspector program and in compliance with federally mandated regulations drawn from the Clinical Laboratory Improvement Act of 1988 (CLIA '88). Some of these tests rely on the use of analyte specific reagents and are subject to specific labeling requirements by the US Food and Drug Administration. Such diagnostic tests may only be performed in a facility that is certified by the Department of Health and Human Services as a high complexity laboratory under CLIA '88. The FDA has determined that such clearance or approval is not necessary. This test is used for clinical purposes. It should not be regarded as investigational or for research. Nevertheless, federal rules concerning the medical use of analyte specific reagents require that the following disclaimer be attached to the report: This test was developed and its performance characteristics determined by the Surgical Pathology and Flow Cytometry Departments of [facility]. It has not been cleared or approved by the U. S. Food and Drug Administration. Rachel Ramirez MD LAB CYTOLOGY ORDERABLES Fin al Result PATHOLOGY [facility] * GA AN ELECTIVE ENDOTRACHEAL AIRWAY, GA AN PROCEDURE PLACEHOLDER (06/20/2025 7:34 AM CASEWORK MANAGER) Narrative Stefanie Acosta CRNA - 06/20/2025 7:34 AM CASEWORK MANAGER Stefanie Acosta CRNA 06/20/2025 7:35 AM Airway Patient location: OR Urgency: elective Date/time: 06/20/2025 7:29 AM Indications for airway management: anesthesia Difficult airway: no Staff: Supervising provider: Rick Ureña MD Placed by: TOOL AND DIE TECHNICIAN: Stefanie Acosta CRNA Emergent airway documentation: Risks and benefits discussed: yes Consent obtained: yes Consent given by: patient Airway prep: Preoxygenated: yes Patient position: sniffing Mask difficulty assessment: 1 - vent by mask Spontaneous ventilation during airway: absent Sedation level during airway: GA Final airway details: Final airway type: endotracheal airway Tube type: ETT ETT size: 8.5 mm Cuffed: yes Technique used for successful ETT placement: video laryngoscopy Devices/Methods used in placement: stylet Insertion site: oral Blade type: Penelope Blade size: 3 Cormack-Lehane (video): grade I - full view of glottis Cuff volume: 8 mL Cuff inflated with: air ETT to teeth: 21 cm Placement verified by: auscultation and CO2 detection Number of attempts: 1 Rick Ureña MD ANESTHESIA ORDERAB LES Final Result * aPTT (06/20/2025 6:51 AM CASEWORK MANAGER) aPTT 34 22 - 37 sec Comment: Interpretive data aPTT test has not been evaluated for monitoring heparin therapy. The anti-Xa is the preferred test. Current interpretive data was last revised on 2019. Blood 06/20/2025 6:51 AM CASEWORK MANAGER 06/20/2025 6:54 AM CASEWORK MANAGER Rachel Ramirez MD LAB BLOOD ORDERABLES Final Result Performing Organization Address [facility] de Phone Number [address] [place] [address] * Protime-INR (06/20/2025 6:51 AM CASEWORK MANAGER) PT 13.00 12.00 - 14.60 sec INR 0.97 0.90 - 1.20 [facility] Comment: Interpretive data Oral anticoagulant therapeutic ranges: Venous thromboembolism prophylaxis or treatment: 2.0-3.0 CARDIOLOGY Standard range: 2.0-3.0 High-intensity range: 2.5-3.5 Refer to indication-specific guidelines for appropriate target ranges for prosthetic heart valve replacement. Current interpretive data was last revised on 2019. Blood 06/20/2025 6:51 AM CASEWORK MANAGER 06/20/2025 6:54 AM CASEWORK MANAGER Rachel Ramirez MD LAB BLOOD ORDERABLES Final Result Performing Organization Address [facility] de Phone Number [address] [address] * POCT glucose (06/20/2025 6:20 AM CASEWORK MANAGER) Glucose, POC 107 70 - 199 mg/dL Blood 06/20/2025 6:20 AM CASEWORK MANAGER 06/20/2025 6:20 AM CASEWORK MANAGER Rachel Ramirez MD LAB POCT ORDERABLES - DEVIC E Final Result Performing Organization Address [facility] de Phone Number [address] [address] * CT chest without contrast (06/20/2025 5:41 AM CASEWORK MANAGER) Anatomical Region Laterality Modality Body N/A Computed Tomogra phy 06/23/2025 8:42 AM CASEWORK MANAGER Impressions 06/23/2025 8:42 AM CASEWORK MANAGER 1. Redemonstration of the mass in the left upper lobe with involvement of the left hilum and abutting the mediastinum, which is FDG avid on the prior study, and therefore remains concerning for malignancy. Further evaluation with tissue sampling is recommended as clinically indicated. 2. Additional findings as above. Electronically signed by: Matthew Valencia D.O. Narrative 06/23/2025 8:42 AM CASEWORK MANAGER STUDY DESCRIPTION: CT CHEST WO CONTRAST ORDERING HEALTHCARE PROVIDER: RACHEL RAMIREZ CLINICAL INDICATIONS: lung nodule. ION protocol. TECHNIQUE: CT of the chest was performed without intravenous contrast. Sagittal and coronal reformats provided. Automated exposure control was used as dose optimization technique for this examination. COMPARISON: 06/13/2025 REFERENCE: Per ACR white paper recommendations, unless otherwise specified no follow-up imaging is recommended for incidental renal and adrenal lesions per consensus recommendations based on imaging criteria. Further lab evaluation could be pursued based on clinical findings. FINDINGS: The sensitivity for detection of solid visceral lesions is diminished without the use of intravenous contrast. LUNGS: There is no definite evidence of a pneumothorax. The central airways are grossly patent.. There is no definite evidence of pleural effusion. There are scattered subsegmental atelectasis and scarring, which is most significant in the lung bases. There is no definite evidence of a new focal consolidation. There is redemonstration of the mass in the left upper lobe measuring 7.8 cm in AP dimension by 5.3 cm in the transverse dimension, which previously measured 7.8 cm in the AP dimension by 5.5 cm in the transverse dimension, and this was FDG avid on prior PET/CT, and therefore remains concerning for malignancy (axial image 34). This mass abuts the mediastinum and extends to the left hilum with associated narrowing of the left upper lobe bronchus, which is overall similar to the prior study. There is pleural-based nodularity involving the left lower lobe, which is overall similar to improved in comparison to multiple prior studies dating back to 10/05/2020, and therefore likely benign. For example, there is a stable peripheral nodule along the medial left lower lobe measuring 0.6 cm (axial image 38). There is a grossly stable 0.3 cm pulmonary nodule in the anterior right upper lobe, which is overall grossly unchanged since 10/29/2021, and therefore likely benign (axial image 29). MEDIASTINUM/SHIRLEY: There is borderline cardiomegaly. Mitral valve calcifications are noted. There is no definite evidence of pericardial effusion. There are atherosclerotic changes of the thoracic aorta and coronary vessels. There is dilatation of main pulmonary artery measuring up to 3.8 cm, which is concerning for pulmonary hypertension. There is no definite unenhanced CT evidence of mediastinal, hilar, or axillary lymphadenopathy. There are scattered subcentimeter mediastinal lymph nodes noted with the largest measuring 0.5 cm in the subcarinal region (image 55). CORONARY ARTERY CALCIFICATION: Present. CHEST WALL: Postsurgical changes of midline sternotomy wires are noted.. HARDWARE/LINES/TUBES: None. UPPER ABDOMEN: The right adrenal gland is grossly stable and unremarkable. There is grossly stable nonspecific nodularity of the left adrenal gland, which is overall grossly unchanged since 10/07/2018. There are scattered colonic diverticula noted. MUSCULOSKELETAL: There is mild osteopenia. There is a dextroscoliotic curvature of the spine with degenerative changes. OTHER: No other significant abnormality. Procedure Note Matthew Valencia, DO - 06/23/2025 STUDY DESCRIPTION: CT CHEST WO CONTRAST ORDERING HEALTHCARE PROVIDER: RACHEL RAMIREZ CLINICAL INDICATIONS: lung nodule. ION protocol. TECHNIQUE: CT of the chest was performed without intravenous contrast. Sagittal and coronal reformats provided. Automated exposure control was used as dose optimization technique for this examination. COMPARISON: 06/13/2025 REFERENCE: Per ACR white paper recommendations, unless otherwise specified no follow-up imaging is recommended for incidental renal and adrenal lesions per consensus recommendations based on imaging criteria. Further lab evaluation could be pursued based on clinical findings. FINDINGS: The sensitivity for detection of solid visceral lesions is diminished without the use of intravenous contrast. LUNGS: There is no definite evidence of a pneumothorax. The central airways are grossly patent.. There is no definite evidence of pleural effusion. There are scattered subsegmental atelectasis and scarring, which is most significant in the lung bases. There is no definite evidence of a new focal consolidation. There is redemonstration of the mass in the left upper lobe measuring 7.8 cm in AP dimension by 5.3 cm in the transverse dimension, which previously measured 7.8 cm in the AP dimension by 5.5 cm in the transverse dimension, and this was FDG avid on prior PET/CT, and therefore remains concerning for malignancy (axial image 34). This mass abuts the mediastinum and extends to the left hilum with associated narrowing of the left upper lobe bronchus, which is overall similar to the prior study. There is pleural-based nodularity involving the left lower lobe, which is overall similar to improved in comparison to multiple prior studies dating back to 10/05/2020, and therefore likely benign. For example, there is a stable peripheral nodule along the medial left lower lobe measuring 0.6 cm (axial image 38). There is a grossly stable 0.3 cm pulmonary nodule in the anterior right upper lobe, which is overall grossly unchanged since 10/29/2021, and therefore likely benign (axial image 29). MEDIASTINUM/SHIRLEY: There is borderline cardiomegaly. Mitral valve calcifications are noted. There is no definite evidence of pericardial effusion. There are atherosclerotic changes of the thoracic aorta and coronary vessels. There is dilatation of main pulmonary artery measuring up to 3.8 cm, which is concerning for pulmonary hypertension. There is no definite unenhanced CT evidence of mediastinal, hilar, or axillary lymphadenopathy. There are scattered subcentimeter mediastinal lymph nodes noted with the largest measuring 0.5 cm in the subcarinal region (image 55). CORONARY ARTERY CALCIFICATION: Present. CHEST WALL: Postsurgical changes of midline sternotomy wires are noted.. HARDWARE/LINES/TUBES: None. UPPER ABDOMEN: The right adrenal gland is grossly stable and unremarkable. There is grossly stable nonspecific nodularity of the left adrenal gland, which is overall grossly unchanged since 10/07/2018. There are scattered colonic diverticula noted. MUSCULOSKELETAL: There is mild osteopenia. There is a dextroscoliotic curvature of the spine with degenerative changes. OTHER: No other significant abnormality. IMPRESSION: 1. Redemonstration of the mass in the left upper lobe with involvement of the left hilum and abutting the mediastinum, which is FDG avid on the prior study, and therefore remains concerning for malignancy. Further evaluation with tissue sampling is recommended as clinically indicated. 2. Additional findings as above. Electronically signed by: Parvish Valencia, D.O. Rachel Ramirez MD IMG CT PROCEDURES Final Res ult * Cytology (06/20/2025 12:00 AM CASEWORK MANAGER) Fluid (Bronch Brushing (Cytology)) 06/20/2025 8:33 AM CASEWORK MANAGER Narrative PATHOLOGY [facility] - 06/24/2025 11:05 AM CASEWORK MANAGER EPIC results best viewed via link to PDF [facility] [place] [address] Note to Patients: This report may contain a detailed description of human tissue sent by a health care provider to the laboratory for pathologic evaluation. The content of this report is essential for diagnosis and may provide important critical findings. This information may be unfamiliar to patients to review without a medical professional present. It is advised that the patient review this report in the presence of a health care provider who can answer questions and explain the details. CYTOPATHOLOGY REPORT FINAL Patient Name: GRECIA QUINN Gender: F : 1940 (Age: 85) Address: [address] [place] [address] Hospital #: [id number] Taken:06/20/2025 Received:06/20/2025 Reported: 06/24/2025 Patient Type: [facility] Service: Surgery Location: Physician(s): Marly Pacheco NP FINAL DIAGNOSIS A. Lung, left upper lobe, brushing (cell block): - Nondiagnostic; acellular specimen B. Lung, left upper lobe, bronchoalveolar lavage: - Non-small cell carcinoma [facility]/06/24/2025 11:05 By this signature, I attest that the above diagnosis is based upon my personal examination of the slides(and/or other material indicated in the diagnosis). Romero Gill M.D. Report Electronically Reviewed and Signed Out By Romero Gill M.D. 06/24/2025 11:05:14 JEFF Robledo(ASCP), [facility] Gross Description A. Lung, left upper lobe, brushin ml cloudy formalin fluid - 1 Cell block. (ep) B. Lung, left upper lobe, bronchoalveolar lavage: 10 ml blood tinged fluid - 1 Pap stained ThinPrep. (ep) Clinical Diagnosis and History lung nodule Microscopic slide review and interpretation for this case was performed at [facility], Department of Surgical Pathology, [address] [facility] [address], [id number], [place] [address] CLIA # [id number] REPORT IMAGES AND SCANNED DOCUMENTS, IF INCLUDED, ONLY VIEWABLE IN PDF VERSION OF REPORT The performance characteristics of some immunohistochemical stains, in-situ hybridization and fluorescence in-situ hybridization tests and immunophenotyping by flow cytometry cited in this report (if any) were determined by the Surgical Pathology and Flow Cytometry Departments at [facility] as part of an ongoing manufacturing quality inspector program and in compliance with federally mandated regulations drawn from the Clinical Laboratory Improvement Act of 1988 (CLIA '88). Some of these tests rely on the use of analyte specific reagents and are subject to specific labeling requirements by the US Food and Drug Administration. Such diagnostic tests may only be performed in a facility that is certified by the Department of Health and Human Services as a high complexity laboratory under CLIA '88. The FDA has determined that such clearance or approval is not necessary. This test is used for clinical purposes. It should not be regarded as investigational or for research. Nevertheless, federal rules concerning the medical use of analyte specific reagents require that the following disclaimer be attached to the report: This test was developed and its performance characteristics determined by the Surgical Pathology and Flow Cytometry Departments of [facility]. It has not been cleared or approved by the U. S. Food and Drug Administration. Rachel Ramirez MD LAB CYTOLOGY ORDERABLES Fin al Result PATHOLOGY [facility] * Surgical pathology (06/20/2025 12:00 AM CASEWORK MANAGER) Tissue (Lung Biopsy) 06/20/2025 8:31 AM CASEWORK MANAGER Narrative PATHOLOGY [facility] - 06/25/2025 6:52 AM CASEWORK MANAGER [facility] Department of Pathology [address] [place] [id number] Note to Patients: This report may contain a detailed description of human tissue sent by a health care provider to the laboratory for pathologic evaluation. The content of this report is essential for diagnosis and may provide important critical findings. This information may be unfamiliar to patients to review without a medical professional present. It is advised that the patient review this report in the presence of a health care provider who can answer questions and explain the details. Final Report Patient Name: GRECIA QUINN : 1940 (Age: 85) Gender: F Address: [address] [place] [address] Hospital #: [id number] Service: Surgery Location: Patient Type: [facility] Taken: 06/20/2025 Received: 06/20/2025 Accessioned: 06/20/2025 Reported: 06/25/2025 Physician(s): Marly Pacheco NP Diagnosis: Lung, left upper lobe, bronchoscopic biopsy - Adenocarcinoma, consistent with lung primary - See comment Quinton Warner MD Report Electronically Reviewed and Signed Out By Quinton Warner MD 06/25/2025 06:52:26 Specimen(s) Received: A: Left upper lobe lung biopsies Microscopic Description: Microscopic examination substantiates the above cited diagnosis. The sections demonstrate extensive elastotic tissue, resembling an apical scar. Within this tissue, there are some glands comprised by atypical cells, with irregular nuclei, prominent nucleoli, and an increased N:C ratio. Although these glands appeared relatively bland, the nuclear features and irregular nature suggest that these were adenocarcinoma rather than simply entrapped/reactive lung tissue. To further investigate this biopsy, an immunostain for Ki-67 was performed (one single antibody immunostain procedure, with appropriate control). This demonstrates that the atypical glands have an increased labeling index, of greater than 10%. The stain also highlights the enlarged nuclei of the atypical cells. Additional H&E-stained recuts were also performed, , which show additional atypical glands. The aggregate results are diagnostic for an adenocarcinoma, with acinar features. 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 A concurrent BAL specimen ([id number]) and an FNA specimen ([id number]) are also positive. 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 Patient now presents with an enlarging PET positive left upper lobe lung lesion. Operative procedure: ION procedure robotic assisted navigational bronchoscopy and endobronchial ultrasound, with fine needle aspiration; transbronchial and endobronchial biopsy, and bronchoalveolar lavage. Gross Description Received in formalin labeled with the patient's identifiers and left upper lobe lung biopsy is a 0.7 x 0.5 x 0.1 cm aggregate of mitchell-white tissue fragments. Labeled A1. Jar [facility]. [facility]06/20/2025 13:33 HARPER Li PA([facility])CM Microscopic slide review and interpretation for this case was performed at [facility], Department of Surgical Pathology, [address] [facility], [id number], [place] [address] CLIA # [id number] Rachel Ramirez MD LAB PATHOLOGY ORDERABLES Fi nal Result PATHOLOGY [facility] * (ABNORMAL) eGFR (06/17/2025 2:44 PM CASEWORK MANAGER) eGFR 50(L) >=60 mL/min/1. 73 m2 Comment: Interpretive Data [...] was last reviewed 2021. Testing performed by: [address] [address] Blood 06/17/2025 2:44 PM CASEWORK MANAGER 06/17/2025 2:52 PM CASEWORK MANAGER Tor BYRD LAB BLOOD ORDERABLES Audrey billy Result [place] [id number] [facility] Department [place] [address] * Differential, auto (06/17/2025 2:44 PM CASEWORK MANAGER) Neutrophil abs 2.92 1.50 - 6.50 K/cumm Comment:Testing performed by : [address] [address] Imm gran abs 0.05 0.00 - 0.10 K/cumm ABDIEL Comment:Testing performed by : [address] [address] Lymphocyte abs 1.43 0.80 - 3.30 K/cumm ABDIEL Comment:Testing performed by : [address] [address] Monocyte abs 0.56 0.20 - 0.80 K/cumm ABDIEL Comment:Testing performed by : [address] [address] Eosinophil abs 0.20 0.00 - 0.50 K/cumm ABDIEL Comment:Testing performed by : [address] [address] Basophil abs 0.02 0.00 - 0.10 K/cumm ABDIEL Comment:Testing performed by : [address] [address] Neutrophil pct 56.3 % ABDIEL Comment: Interpretive Data Percent cell count reference ranges are not reported, since discordance with absolute values may lead to misinterpretation of CBC data. Current Interpretive Data was last revised on 2017. Testing performed by: [address] [address] Imm gran pct 1.0 % [facility] Comment: Interpretive Data Percent cell count reference ranges are not reported, since discordance with absolute values may lead to misinterpretation of CBC data. Current Interpretive Data was last revised on 2017. Testing performed by: [address] [address] Lymphocyte pct 27.6 % [facility] Comment: Interpretive Data Percent cell count reference ranges are not reported, since discordance with absolute values may lead to misinterpretation of CBC data. Current Interpretive Data was last revised on 2017. Testing performed by: [address] [address] Monocyte pct 10.8 % [facility] Comment: Interpretive Data Percent cell count reference ranges are not reported, since discordance with absolute values may lead to misinterpretation of CBC data. Current Interpretive Data was last revised on 2017. Testing performed by: [address] [address] Eosinophil pct 3.9 % [facility] Comment: Interpretive Data Percent cell count reference ranges are not reported, since discordance with absolute values may lead to misinterpretation of CBC data. Current Interpretive Data was last revised on 2017. Testing performed by: [address] [address] Basophil pct 0.4 % [facility] Comment: Interpretive Data Percent cell count reference ranges are not reported, since discordance with absolute values may lead to misinterpretation of CBC data. Current Interpretive Data was last revised on 2017. Testing performed by: [address] [address] Blood 06/17/2025 2:44 PM CASEWORK MANAGER 06/17/2025 2:52 PM CASEWORK MANAGER Tor BYRD LAB BLOOD ORDERABLES Audrey l Result A[facility]EL [address] [facility] Department [place] [address] * (ABNORMAL) CBC with auto differential (06/17/2025 2:44 PM CASEWORK MANAGER) [facility] WBC 5.18 3.80 - 9.90 K/cumm Comment:Testing performed by : [address] [address] Hgb 10.5(L) 11.9 - 15.5 g/dL ABDIEL Comment:Testing performed by : [address], [address] Hct 32.3(L) 35.6 - 45.5 % ABDIEL Comment:Testing performed by : [address], [address] Plt 206 150 - 400 K/cumm ABDIEL Comment:Testing performed by : [address] [address] MPV 9.2 9.1 - 12.3 fL ABDIEL Comment:Testing performed by : [address], [address] RBC 3.76(L) 3.90 - 5.20 M/cumm ABDIEL Comment:Testing performed by : [address] [address] MCV 85.9 81.3 - 96.4 fL ABDIEL Comment:Testing performed by : [address] [address] MCH 27.9 27.1 - 33.3 pg ABDIEL Comment:Testing performed by : [address] [address] MCHC 32.5 32.3 - 35.7 g/dL ABDIEL Comment:Testing performed by : [address] [address] RDW CV 15.0(H) 11.1 - 14.9 % ABDIEL Comment:Testing performed by : [address] [address] RDW SD 47.2 35.7 - 48.1 fL ABDIEL Comment:Testing performed by : [address], [address] NRBC abs 0.00 0.00 - 0.01 K/cumm ABDIEL Comment:Testing performed by : [address] [address] ANC Prelim 2.92 1.50 - 6.50 K/cumm ABDIEL Comment: Interpretive Data The rapid ANC is a preliminary automated count and may vary from the final ANC (Neut Abs) reported in the WBC differential that follows. Current interpretive data was last revised 2024. Testing performed by: [address] [address] Blood 06/17/2025 2:44 PM CASEWORK MANAGER 06/17/2025 2:52 PM CASEWORK MANAGER Tor BYRD LAB BLOOD ORDERABLES Audrey billy Result [place] [id number] [facility] Department [place] [address] * (ABNORMAL) Comprehensive metabolic panel (06/17/2025 2:44 PM CASEWORK MANAGER) Sodium 138 135 - 145 mmol/L Comment:Testing performed by : [address] [address] Potassium, pl 3.6 3.3 - 4.9 mmol/L ABDIEL Comment:Testing performed by : [address] [address] Chloride 101 97 - 110 mmol/L ABDIEL Comment:Testing performed by : [address] [address] CO2 23 22 - 32 mmol/L ABDIEL Comment:Testing performed by : [address] [address] Anion gap 14 2 - 15 mmol/L ABDIEL Comment:Testing performed by : [address] [address] BUN 40(H) 6 - 25 mg/dL ABDIEL Comment:Testing performed by : [address] [address] Creatinine 1.10 0.60 - 1.10 mg/dL ABDIEL Comment:Testing performed by : [address] [address] Glucose 145 70 - 199 mg/dL ABDIEL Comment: Interpretive [...] was last revised 2022. Testing performed by: [address] [address] Calcium 8.9 8.5 - 10.3 mg/dL ABDIEL Comment:Testing performed by : [address] [address] Bilirubin, total 0.3 0.1 - 1.2 mg/dL ABDIEL Comment:Testing performed by : [address] [address] Protein, pl 7.0 6.5 - 8.5 g/dL ABDIEL Comment:Testing performed by : [address] [address] Albumin 4.0 3.5 - 5.0 g/dL ABDIEL Comment:Testing performed by : [address] [address] Alk phos 69 40 - 130 Units/L ABDIEL Comment:Testing performed by : [address] [address] ALT 15 7 - 45 Units/L ABDIEL Comment:Testing performed by : [address] [address] AST 33 10 - 45 Units/L ABDIEL Comment:Testing performed by : [address] [address] Blood 06/17/2025 2:44 PM CASEWORK MANAGER 06/17/2025 2:52 PM CASEWORK MANAGER us Tor BYRD LAB BLOOD ORDERABLES Audrey billy Result [place] [address] [facility] Department [place] [address] * PET/CT FDG Skull to Thigh (06/13/2025 2:36 PM CASEWORK MANAGER) Anatomical Region Laterality Modality N/A Positron Emissio n Tomography (PET) 06/13/2025 2:53 PM CASEWORK MANAGER Impressions 06/13/2025 2:53 PM CASEWORK MANAGER 1. 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 2. No evidence of FDG avid thoracic lymphadenopathy or distant metastatic disease. Electronically signed by: Dennys Armstrong M.D. Narrative 06/13/2025 2:53 PM CASEWORK MANAGER EXAM DESCRIPTION: PET/CT FDG SKULL TO THIGH REASON FOR STUDY: Lung, Lung- left lower lobe per CT scan RADIOPHARMACEUTICAL: 9.1 mCi F-18 Fluorodeoxyglucose (FDG) via a right antecubital IV site. TECHNIQUE: The patient's fasting blood glucose level, measured by glucometer before injection of FDG, was 101 mg/dL.? After intravenous administration of FDG, noncontrast CT images were obtained for attenuation correction and for fusion with emission PET images to allow for anatomical localization of PET findings.? Emission PET images were then obtained. The area imaged spanned the region from the skull base to midthigh. The uptake time was approximately 63 minutes. SUV max was normalized to body weight. COMPARISON: PET/CT 03/10/2022.. CT chest abdomen pelvis 05/13/2025. FINDINGS: For reference, a region of interest of the ascending thoracic aorta has a maximal SUV of 2.7. For reference, a region of interest of the right hepatic lobe of the liver has a maximal SUV of 3.4. ? Head: Normal FDG uptake is seen in the included portion of the brain. ? Neck: Physiologic uptake is present in the lymphoid structures and salivary glands. Carotid vascular calcifications noted. The thyroid gland is normal in size. No hypermetabolic lymphadenopathy is identified. ? Chest: There is a hypermetabolic left apical mass with volume loss. Mass is triangular in morphology measuring 5.4 x 4.3 cm with a maximal SUV 10.5. No hypermetabolic thoracic lymphadenopathy. 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 There is intense activity in the anterior mediastinum likely related to vascular pledget/inflammatory change related to CABG. The heart is moderately enlarged. There is a right chest port with the tip in the right atrium. Abdomen and Pelvis:?Liver and spleen demonstrate normal activity without focal abnormal FDG uptake. Gallbladder is unremarkable. Pancreas and both adrenal glands demonstrate normal FDG activity. Normal genitourinary and gastrointestinal activity is seen. Bilateral renal lesions, on the right lower density 4 cm characteristic of cysts. On the left the lesion is hypodensity and may be a proteinaceous or hemorrhagic cyst 1.1 cm. Calculus lower pole left kidney 0.4 cm. Status post hysterectomy. Mild uncomplicated colonic diverticulosis. Abdominal aortic aneurysm 3.7 cm. There are no hypermetabolic lymph nodes in the abdomen and pelvis. Bones: No acute or aggressive appearing osseous lesions are seen. Trace anterolisthesis of L3 on L4 and L4 and L5. ? Procedure Note Dennys Armstrong MD - 06/13/2025 EXAM DESCRIPTION: PET/CT FDG SKULL TO THIGH REASON FOR STUDY: Lung, Lung- left lower lobe per CT scan RADIOPHARMACEUTICAL: 9.1 mCi F-18 Fluorodeoxyglucose (FDG) via a right antecubital IV site. TECHNIQUE: The patient's fasting blood glucose level, measured by glucometer before injection of FDG, was 101 mg/dL.? After intravenous administration of FDG, noncontrast CT images were obtained for attenuation correction and for fusion with emission PET images to allow for anatomical localization of PET findings.? Emission PET images were then obtained. The area imaged spanned the region from the skull base to midthigh. The uptake time was approximately 63 minutes. SUV max was normalized to body weight. COMPARISON: PET/CT 03/10/2022.. CT chest abdomen pelvis 05/13/2025. FINDINGS: For reference, a region of interest of the ascending thoracic aorta has a maximal SUV of 2.7. For reference, a region of interest of the right hepatic lobe of the liver has a maximal SUV of 3.4. ? Head: Normal FDG uptake is seen in the included portion of the brain. ? Neck: Physiologic uptake is present in the lymphoid structures and salivary glands. Carotid vascular calcifications noted. The thyroid gland is normal in size. No hypermetabolic lymphadenopathy is identified. ? Chest: There is a hypermetabolic left apical mass with volume loss. Mass is triangular in morphology measuring 5.4 x 4.3 cm with a maximal SUV 10.5. No hypermetabolic thoracic lymphadenopathy. 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 There is intense activity in the anterior mediastinum likely related to vascular pledget/inflammatory change related to CABG. The heart is moderately enlarged. There is a right chest port with the tip in the right atrium. Abdomen and Pelvis:?Liver and spleen demonstrate normal activity without focal abnormal FDG uptake. Gallbladder is unremarkable. Pancreas and both adrenal glands demonstrate normal FDG activity. Normal genitourinary and gastrointestinal activity is seen. Bilateral renal lesions, on the right lower density 4 cm characteristic of cysts. On the left the lesion is hypodensity and may be a proteinaceous or hemorrhagic cyst 1.1 cm. Calculus lower pole left kidney 0.4 cm. Status post hysterectomy. Mild uncomplicated colonic diverticulosis. Abdominal aortic aneurysm 3.7 cm. There are no hypermetabolic lymph nodes in the abdomen and pelvis. Bones: No acute or aggressive appearing osseous lesions are seen. Trace anterolisthesis of L3 on L4 and L4 and L5. ? IMPRESSION: 1. 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 2. No evidence of FDG avid thoracic lymphadenopathy or distant metastatic disease. Electronically signed by: Dennys Armstrong M.D. [facility] [place] PET PROCEDURES Final Result * POCT glucose (06/13/2025 1:10 PM CASEWORK MANAGER) Glucose, POC 101 70 - 199 mg/dL Comment:Testing performed by : [facility], [address] [place] [address], [place]., [address] Blood 06/13/2025 1:10 PM CASEWORK MANAGER 06/13/2025 1:10 PM CASEWORK MANAGER Romel Valerio MD PhD LAB POCT ORDERABLES - DEVICE Final Result Performing Organization Address [facility] de Phone Number ABDIEL [facility] [place] [address] * (ABNORMAL) eGFR (06/03/2025 1:23 PM CDT) [...] was last reviewed 2021. Testing performed by: [address] [address] Blood 06/03/2025 1:23 PM CDT 06/03/2025 1:24 PM CDT Romel Valerio MD PhD LAB BLOOD ORDERABLES Final Result Performing Organization Address [facility] Co de Phone Number ABDIEL [facility]0 [facility] Department [place] [address] * (ABNORMAL) Basic metabolic panel (06/03/2025 1:23 PM CDT) [facility] Sodium 135 135 - 145 mmol/L Comment:Testing performed by : [address] [address] Potassium, pl 3.6 3.3 - 4.9 mmol/L ABDIEL Comment:Testing performed by : [address] [address] Chloride 97 97 - 110 mmol/L ABDIEL Comment:Testing performed by : [address] [address] CO2 23 22 - 32 mmol/L ABDIEL Comment:Testing performed by : [address] [address] Anion gap 15 2 - 15 mmol/L ABDIEL Comment:Testing performed by : [address] [address] BUN 34(H) 6 - 25 mg/dL ABDIEL Comment:Testing performed by : [address] [address] Creatinine 1.20(H) 0.60 - 1.10 mg/dL ABDIEL Comment:Testing performed by : [address] [address] Glucose 132 70 - 199 mg/dL ABDIEL [...] was last revised 2022. Testing performed by: [address] [address] Calcium 8.9 8.5 - 10.3 mg/dL ABDIEL Comment:Testing performed by : [address] [address] Blood 06/03/2025 1:23 PM CDT 06/03/2025 1:24 PM CDT us Romel Valerio MD PhD LAB BLOOD ORDERABLES Final Result ABDIEL 2023 [facility] Department [place] [address] * (ABNORMAL) eGFR (05/20/2025 2:14 PM CDT) [...] was last reviewed 2021. Testing performed by: [address] [address] Blood 05/20/2025 2:14 PM CDT 05/20/2025 2:16 PM CDT us Romel Valerio MD PhD LAB BLOOD ORDERABLES Final Result Performing Organization Address City/State/[facility] Co de Phone Number [facility] [address] [facility] Department [place] [address] * Differential, auto (05/20/2025 2:14 PM CDT) Pathologist [facility] Neutrophil abs 4.31 1.50 - 6.50 K/cumm Comment:Testing performed by : [address] [address] Imm gran abs 0.02 0.00 - 0.10 K/cumm ABDIEL WALKER Comment:Testing performed by : [address] [address] Lymphocyte abs 1.28 0.80 - 3.30 K/cumm [facility] Comment:Testing performed by : [address], [place]., [address] Monocyte abs 0.73 0.20 - 0.80 K/cumm [facility] Comment:Testing performed by : [address], [place]., [address] Eosinophil abs 0.23 0.00 - 0.50 K/cumm [facility] Comment:Testing performed by : [address], [place]., [address] Basophil abs 0.03 0.00 - 0.10 K/cumm [facility] Comment:Testing performed by : [address] [address] Neutrophil pct 65.2 % [facility] Comment: Interpretive Data Percent cell count reference ranges are not reported, since discordance with absolute values may lead to misinterpretation of CBC data. Current Interpretive Data was last revised on 2017. Testing performed by: [address] [address] Imm gran pct 0.3 % [facility] Comment: Interpretive Data Percent cell count reference ranges are not reported, since discordance with absolute values may lead to misinterpretation of CBC data. Current Interpretive Data was last revised on 2017. Testing performed by: [address] [address] Lymphocyte pct 19.4 % [facility] Comment: Interpretive Data Percent cell count reference ranges are not reported, since discordance with absolute values may lead to misinterpretation of CBC data. Current Interpretive Data was last revised on 2017. Testing performed by: [address] [address] Monocyte pct 11.1 % [facility] Comment: Interpretive Data Percent cell count reference ranges are not reported, since discordance with absolute values may lead to misinterpretation of CBC data. Current Interpretive Data was last revised on 2017. Testing performed by: [address] [address] Eosinophil pct 3.5 % [facility] Comment: Interpretive Data Percent cell count reference ranges are not reported, since discordance with absolute values may lead to misinterpretation of CBC data. Current Interpretive Data was last revised on 2017. Testing performed by: [address] [address] Basophil pct 0.5 % ABDIEL WALKER Comment: Interpretive Data Percent cell count reference ranges are not reported, since discordance with absolute values may lead to misinterpretation of CBC data. Current Interpretive Data was last revised on 2017. Testing performed by: [address] [address] Blood 05/20/2025 2:14 PM CDT 05/20/2025 2:16 PM CDT us Romel Valerio MD PhD LAB BLOOD ORDERABLES Final Result ABDIEL WALKER [address] [facility] Department [place] [address] * (ABNORMAL) CBC with auto differential (05/20/2025 2:14 PM CDT) WBC 6.60 3.80 - 9.90 K/cumm Comment:Testing performed by : [address] [address] Hgb 10.7(L) 11.9 - 15.5 g/dL ABDIEL WALKER Comment:Testing performed by : [address] [address] Hct 32.4(L) 35.6 - 45.5 % ABDIEL WALKER Comment:Testing performed by : [address] [address] Plt 213 150 - 400 K/cumm ABDIEL WALKER Comment:Testing performed by : [address] [address] MPV 9.1 9.1 - 12.3 fL ABDIEL WALKER Comment:Testing performed by : [address] [address] RBC 3.83(L) 3.90 - 5.20 M/cumm ABDIEL WALKER Comment:Testing performed by : [address] [address] MCV 84.6 81.3 - 96.4 fL ABDIEL Comment:Testing performed by : [address] [address] MCH 27.9 27.1 - 33.3 pg ABDIEL WALKER Comment:Testing performed by : [address] [address] MCHC 33.0 32.3 - 35.7 g/dL ABDIEL WALKER Comment:Testing performed by : [address] [address] RDW CV 15.6(H) 11.1 - 14.9 % ABDIEL Comment:Testing performed by : [address] [address] RDW SD 47.8 35.7 - 48.1 fL ABDIEL WALKER Comment:Testing performed by : [address] [address] NRBC abs 0.00 0.00 - 0.01 K/cumm ADBIEL Comment:Testing performed by : [address] [address] ANC Prelim 4.31 1.50 - 6.50 K/cumm ABDIEL Comment: Interpretive Data The rapid ANC is a preliminary automated count and may vary from the final ANC (Neut Abs) reported in the WBC differential that follows. Current interpretive data was last revised 2024. Testing performed by: [address] [address] Blood 05/20/2025 2:14 PM CDT 05/20/2025 2:16 PM CDT us Romel Valerio MD PhD LAB BLOOD ORDERABLES Final Result ABDIEL [address]10 [facility] Department of Laboratories [place], [place] [id number] * (ABNORMAL) Comprehensive metabolic panel (05/20/2025 2:14 PM CDT) Sodium 135 135 - 145 mmol/L Comment:Testing performed by : [address] [address] Potassium, pl 3.8 3.3 - 4.9 mmol/L ABDIEL Comment:Testing performed by : [address] [address] Chloride 99 97 - 110 mmol/L ABDIEL Comment:Testing performed by : [address], [place]., [address] CO2 23 22 - 32 mmol/L ABDIEL Comment:Testing performed by : [address], [place]., [address] Anion gap 13 2 - 15 mmol/L ABDIEL Comment:Testing performed by : [address] [address] BUN 36(H) 6 - 25 mg/dL ABDIEL Comment:Testing performed by : [address], [place]., [address] Creatinine 1.60(H) 0.60 - 1.10 mg/dL ABDIEL Comment:Testing performed by : [address] [address] Glucose 108 70 - 199 mg/dL [facility] Comment: Interpretive Data Fasting glucose >/= [...] was last revised 2022. Testing performed by: [address] [address] Calcium 8.7 8.5 - 10.3 mg/dL ABDIEL Comment:Testing performed by : [address] [address] Bilirubin, total 0.3 0.1 - 1.2 mg/dL ABDIEL Comment:Testing performed by : [address] [address] Protein, pl 6.9 6.5 - 8.5 g/dL ABDIEL Comment:Testing performed by : [address] [address] Albumin 4.0 3.5 - 5.0 g/dL ABDIEL Comment:Testing performed by : [address] [address] Alk phos 57 40 - 130 Units/L ABDIEL Comment:Testing performed by : [address] [address] ALT 13 7 - 45 Units/L ABDIEL Comment:Testing performed by : [address] [address] AST 24 10 - 45 Units/L ABDIEL Comment:Testing performed by : [address] [address] Blood 05/20/2025 2:14 PM CDT 05/20/2025 2:16 PM CDT us Romel Valerio MD PhD LAB BLOOD ORDERABLES Final Result [facility] [address] [facility] Department [place] [address] * CT Chest Abdomen Pelvis W Contrast [...] Bladimir Verdugo M.D. AM: AM Report ID: [id number] Reading Location: [id number] Procedure Note Bladimir Verdugo MD - 05/16/2025 [...] Bladimir Verdugo M.D. AM: AM Report ID: [id number] Reading Location: [id number] us Romel Valerio MD PhD IMG CT PROCEDURES Fin al Result * (ABNORMAL) POCT creatinine for contrast evaluation (05/13/2025 3:48 PM CDT) Creatinine POC 1.20(H) 0.60 - 1.10 mg/dL Comment:Testing performed by : [facility], [address] [place] [address], [place]., [address] Blood 05/13/2025 3:48 PM CDT 05/13/2025 3:48 PM CDT us Romel Valerio MD PhD POINT OF CARE TEST OR DERABLES Final Result ABDIEL [address] [facility] Department [place] [address] * MRI Brain W WO Contrast (05/13/2025 [...] Amirah King M.D. MF: BRIAN Report ID: [id number] Reading Location: [place] [address] Procedure Note Amirah King, DO - 05/13/2025 EXAM DESCRIPTION: MRI BRAIN W [...] Amirah King M.D. MF: BRIAN Report ID: [id number] Reading Location: [place] [address] Romel Valerio MD PhD IMG MRI PROCEDURES Fi nal Result * TNI with LIPID PANEL (10/07/2018 6:14 PM CASEWORK MANAGER) Troponin I < 0.300 0.000 - 0.300 ng/mL 10/07/2018 6:[address] [facility] [employer] HISTORICAL RESULTS Comment: Reference using MORENITA Chemiluminescence Negative: Repeat in 4-6 hours as indicated. Triglycerides 95 0 - 149 mg/dL 10/07/2018 6:[address] [facility] [employer] HISTORICAL RESULTS Comment: National Lipid Association/NCEP Guidelines: Normal < 150 mg/dL Borderline high 150-199 mg/dL High 200-499 mg/dL Very High >=500 mg/dL Cholesterol 121 0 - 199 mg/dL 10/07/2018 6:[address] [facility] [employer] HISTORICAL RESULTS Comment: National Lipid Association/NCEP Guidelines: Desirable < 200 mg/dL Borderline high: 200-239 mg/dL High Risk: >=240 mg/dL HDL Cholesterol 39 mg/dL 9 6:[address] [facility] [employer] [facility] HISTORICAL RESULTS Comment: Reference Ranges: Males: >=40 mg/dL Females: >=50 mg/dL LDL Cholesterol, Calc 63 0 - 129 mg/dL 10/07/2018 6:[address] [facility] [employer] [facility] HISTORICAL RESULTS Comment: National Lipid Association/NCEP Guidelines: Optimal < 100 mg/dL Near Optimal 100-129 mg/dL Borderline high 130-159 mg/dL High >=160 mg/dL Cholesterol/HDL Ratio 3.1 10/07/2018 6:[address] [facility] [employer] [facility] HISTORICAL RESULTS Comment: Optimal < 3.5:1 High > 5:1 10/07/2018 6:14 PM CASEWORK MANAGER 10/07/2018 6:28 PM CASEWORK MANAGER us Malika BYRD LAB BLOOD ORDERABLES Fin al Result Performing Organization Address [facility] Co de Phone Number [facility] HISTORICAL RESULTS * (ABNORMAL) Hemoglobin A1c (09/24/2018 5:29 AM CASEWORK MANAGER) Hemoglobin A1c % 6.4(H) 4.0 - 5.6 % 09/24/2018 6:31 AM CASEWORK MANAGER [facility] HISTORICAL RESULTS Comment: ADA 2016 GUIDELINES: Initial Diagnostic Criteria HbA1c Result: Interpretation: <5.7% Normal 5.7-6.4% At risk for diabetes mellitus >=6.5% Consistent with diabetes mellitus Diabetes monitoring Target value (ADA Recommended) <7% 09/24/2018 5:29 AM CASEWORK MANAGER 09/24/2018 6:13 AM CASEWORK MANAGER us Navjot Danielson MD LAB BLOOD ORDERABLES Final Res ult Performing Organization Address [facility] Co de Phone Number [facility] HISTORICAL RESULTS from Last 3 Months or Most Recently Relevant to Health Maintenance Insurance MEDICARE FOR LIFE FOR LIFE MEDICARE FOR LIFE Advance Directives For more information, please contact: [phone] Documents on File Type Date Recorded Patient Solar Tech Expl anation ADVANCE DIRECTIVE 09/30/2018 12:00 AM JAY JAY R OF FINANCIAL INSTITUTION PRESIDENT FINANCIAL/MEDICAL * Full Code (Latest Code Status on File) Date Activated Date Inactivated Comments 06/03/2022 8:52 AM 06/04/2022 5:14 AM Care Teams Forest Pathology Teacher Relationship Specialty Start Date End Date Chandni Vang NP [address] [facility] [address] [facility] [place] [address] PCP - General Nurse Practitioner 08/22/23 Kaushik Gonzalez DO Referring Physician Internal Medicine 08/09/18 Navjot Danielson MD Cardiothoracic Surgery 08/21/18 Rinku Hoffmann MD Radiation Oncologist Radiation Oncology 07/28/21 Adryan Stevens MD Consulting Physician Cardiovascular Disease 09/02/21 Romel Valerio MD PhD [address] [place] [address] MEDICAL ONCOLOGY, [address] [address] Consulting Physician Medical Oncology 04/04/22 Rachel Ramirez MD [address] [place] [address] MEDICAL ONCOLOGY, [address] [address] Consulting Physician Pulmonary Disease 04/20/22 Ivis Okeefe MD [address] [place] [address] MEDICAL ONCOLOGY, [address] [id number] Referring Physician Dermatology 08/30/22
--- OUTSIDE RECORDS SUMMARY | 2025-06-26 17:46 | XMS_ITS | Encounter Summary ---
Author Organization [facility] Facility Care Team Providers Care Street Light Repairer Name Role Phone Kaushik Gonzalez DO Primary Care Provider [phone] Kaushik Gonzalez DO Primary Care Provider [phone] Kaushik Gonzalez DO Unavailable Kaushik Gonzalez DO Unavailable Navjot Danielson MD Unavailable [phone] Checo Hawley MD Unavailable [phone] Rinku Hoffmann MD Unavailable [phone] Adryan Stevens MD Unavailable [phone] Romel Valerio MD PhD Unavailable Rachel Ramirez MD Unavailable [phone] Ivis Okeefe MD Unavailable [phone] Chandni Vang Primary Care Provider Unavailabl Kaushik Swain DO Primary Care Provider [phone] Chandni Vang NP Primary Care Provider [phone] Encounter Details Date Type Department Care Team (Latest Contact Info) Description 09/06/2018 Orders Only [facility] CLINCONV Provider, MD Nahum [address] [place] [address] Social History Tobacco Use Types Packs/Day Years Used Date Smoking Tobacco: Every Day Smokeless Tobacco: Never Alcohol Use Standard Drinks/Week Comments Yes 0 (1 standard drink = 0.6 oz pur e alcohol) Comments Unknown Sex and Gender Information Value Date Recorded Sex Assigned at Not on file Legal Sex Female 4:07 AM NIGHT SHIFT SUPERVISOR Gender Identity Not on file Sexual Orientation Not on file documented as of this encounter Plan of Treatment Not on file documented as of this encounter Procedures Procedure Name Priority Date/Time Associated Diagnosis Comments PROCEDURE - RESULT 09/10/2018 12 :00 AM NIGHT SHIFT SUPERVISOR documented in this encounter Results * PROCEDURE - RESULT (09/10/2018 12:00 AM NIGHT SHIFT SUPERVISOR) Narrative 09/10/2018 12:00 AM NIGHT SHIFT SUPERVISOR Ordered by an unspecified provider. us Historical Provider Final Res ult documented in this encounter Visit Diagnoses Not on filedocumented in this encounter Additional Health Concerns Infection Onset Date Last Indicated Resolved Time COVID: Suspected 09/06/2021 09/06/2021 09/06/2021 10:47 PM NIGHT SHIFT SUPERVISOR documented as of this encounter Care Teams Street Light Repairer Relationship Specialty Start Date End Date Kaushik Gonzalez DO PCP - General Internal Medicine 08/09/18 09/20/18 Kaushik Gonzalez DO PCP - General 09/21/18 01/23/23 Chandni Vang PCP - General Family Medicine 01/24/23 02/27/23 Kaushik Gonzalez DO PCP - General Internal Medicine 02/28/23 08/21/23 Chandni Vang NP [address] [place] [address] PCP - General Nurse Practitioner 08/22/23 Kaushik Gonzalez DO Internal Medicine 09/21/18 02/27/23 Sudarshan Gonzalezisabell Referring Physician Internal Medicine 08/09/18 Navjot Danielson MD Cardiothoracic Surgery 08/21/18 Checo [place] MD Medical Oncologist/Hematologis t Hematology and Oncology 08/31/18 04/03/22 Rinku Hoffmann MD Radiation Oncologist Radiation Oncology 07/28/21 Adryan Stevens MD Consulting Physician Cardiovascular Disease 09/02/21 Romel Valerio MD PhD [address] [place] [address] MEDICAL ONCOLOGY, [address] [address] Consulting Physician Medical Oncology 04/04/22 Rachel Ramirez MD [address] [place] [address] MEDICAL ONCOLOGY, [address] [address] Consulting Physician Pulmonary Disease 04/20/22 Ivis Okeefe MD [address] [place] [address] MEDICAL ONCOLOGY, [address] [address] Referring Physician Dermatology 08/30/22 documented as of this encounter
--- OUTSIDE RECORDS SUMMARY | 2025-06-26 17:46 | XMS_ITS | Encounter Summary ---
Author Organization [facility] Care Team Providers Care Pace Analyst Name Role Phone Kaushik Gonzalez DO Primary Care Provider [phone] Kaushik Gonzalez DO Primary Care Provider [phone] Kaushik Gonzalez DO Unavailable Kaushik Gonzalez DO Unavailable Navjot Danielson MD Unavailable [phone] Checo Hawley MD Unavailable [phone] Rinku Hoffmann MD Unavailable [phone] Adryan Stevens MD Unavailable [phone] Romel Valerio MD PhD Unavailable Rachel Ramirez MD Unavailable [phone] Ivis Okeefe MD Unavailable [phone] Chandni Vang Primary Care Provider Unavailabl Kaushik Swain DO Primary Care Provider [phone] Chandni Vang NP Primary Care Provider [phone] Encounter Details Date Type Department Care Team (Latest Contact Info) Description 09/10/2018 Orders Only [facility] Provider, MD Nahum [address] [place] [id number] Social History Tobacco Use Types Packs/Day Years Used Date Smoking Tobacco: Every Day Smokeless Tobacco: Never Alcohol Use Standard Drinks/Week Comments Yes 0 (1 standard drink = 0.6 oz pur e alcohol) Comments Unknown Sex and Gender Information Value Date Recorded Sex Assigned at Not on file Legal Sex Female 4:07 AM WATCHGUARD Gender Identity Not on file Sexual Orientation Not on file documented as of this encounter Functional Status documented as of this encounter Plan of Treatment Not on file documented as of this encounter Procedures Procedure Name Priority Date/Time Associated Diagnosis Comments PROCEDURE - RESULT 09/10/2018 12 :00 AM WATCHGUARD documented in this encounter Results * PROCEDURE - RESULT (09/10/2018 12:00 AM WATCHGUARD) Narrative 09/10/2018 12:00 AM WATCHGUARD Ordered by an unspecified provider. us Historical Provider Final Res ult documented in this encounter Visit Diagnoses Not on filedocumented in this encounter Additional Health Concerns Infection Onset Date Last Indicated Resolved Time COVID: Suspected 09/06/2021 09/06/2021 09/06/2021 10:47 PM WATCHGUARD documented as of this encounter Care Teams Pace Analyst Relationship Specialty Start Date End Date Kaushik Gonzalez DO PCP - General Internal Medicine 08/09/18 09/20/18 Kaushik Gonzalez DO PCP - General 09/21/18 01/23/23 Chandni Vang PCP - General Family Medicine 01/24/23 02/27/23 Kaushik Gonzalez DO PCP - General Internal Medicine 02/28/23 08/21/23 Chandni Vang NP [address] [place] [address] PCP - General Nurse Practitioner 08/22/23 Kaushik Gonzalez DO Internal Medicine 09/21/18 02/27/23 Sudarshan Gonzalezisabell Referring Physician Internal Medicine 08/09/18 Navjot Danielson MD Cardiothoracic Surgery 08/21/18 Checo Hawley MD Medical Oncologist/Hematologis t Hematology and Oncology 08/31/18 04/03/22 Rinku Hoffmann MD Radiation Oncologist Radiation Oncology 07/28/21 Adryan Stevens MD Consulting Physician Cardiovascular Disease 09/02/21 Romel Valerio MD PhD [address] [place] [address] MEDICAL ONCOLOGY, [address] [address] Consulting Physician Medical Oncology 04/04/22 Rachel Ramirez MD [address] [place] [address] MEDICAL ONCOLOGY, [address] [address] Consulting Physician Pulmonary Disease 04/20/22 Ivis Okeefe MD [address] [place] [address] MEDICAL ONCOLOGY, [address] [address] Referring Physician Dermatology 08/30/22 documented as of this encounter
--- OUTSIDE RECORDS SUMMARY | 2025-06-26 17:46 | XMS_ITS | Data Portability ---
Author Organization [facility] OFFICE Address [address] [place] [address] Care Team Providers Care Allied Health Teacher Name Role Phone JOSIANE STEWARD Primary Care [...] torsemi de 20 mg tablet 2024 025 [facility], [address] [place], [address], 01/04/2025 15:32:20 Coreg 6.25 mg tablet 2024 025 [facility], [address] [place], [address], 01/04/2025 15:31:11 Bystoli c 5 mg tablet 2024 025 [facility], [address] , [place], [address], 03/29/2025 14:41:56 nitrogl ycerin 0.4 mg subling ual tablet 2024 025 [id number], [address], [place], [place], [id number], 09/17/2024 16:19:04 Bystoli c 5 mg tablet 2024 025 kim [id number], [address], [place], [place], [id number], 03/29/2025 14:41:56 Patient TargetsNo targets recorded. Patient Instructions Encounter Date Encounter Id Patient Instructions Last Modified By Organization Details Last Modified Time 01/04/2025 [id number] Exercise advised Low cholesterol diet advised Low [...] Organization Details Recorded Time Dyspnea on exertion 43974328 Active 2018 Not Available [facility] 3 18:03:57 Pre-surgery testing Active 2018 Not Available [facility] 3 18:03:57 Coronary arteriosclero sis 68675763 Active 2018 Not Available [facility] 3 18:03:56 Essential hypertension 03676244 Active 2018 Not Available [facility] 3 18:03:57 Carcinoma of female breast 954524091 Active 2018 Not Available [facility] 3 18:03:57 Family history of coronary arteriosclero sis 566042028 Active 2018 Not Available [facility] 3 18:03:56 Malignant neoplasm of lung 063162045 Active 2018 Not Available [facility] 3 18:03:57 Angina pectoris 338113096 Active 2019 Not Available [facility] 3 18:03:57 Stented coronary artery 223651368 Active 2019 Not Available [facility] 3 18:03:57 Intermittent claudication 73037695 Active 2019 Not Available [facility] 3 18:03:57 Dyslipidemia 704255329 Active 2019 Not Available [facility] 3 18:03:57 Notes:Has Lung mass, LL lobe . Needs surgical pre-auth for Dr. Argueta. Problem Notes None recorded. Medical Equipment None Reported. Allergies Allergen ID Allergen Name Allergen Category Reaction Reaction Severity Criticality Documentation Date Start Date Code Code System Note Provider Name and Address Organization Details Recorded Time 7932 clopidogr el medicatio n Not available Not available Not available 10/26/2018 91045 RxNorm Pace [facility] [place], [place] - [facility] 9 09:45:21 Medications [...] (BMI) Body weight Heart rate Oxygen saturation Systolic And Diastolic Provider Name and Address Organization Details Last Updated DateTime 5 147.32 cm 30.1 kg/m2 62959.3 g 75 /min 98 % 202/84 mm[Hg] [facility] 5 16:00:27 Date Recorded Body height Body mass index (BMI) Body weight Heart rate Oxygen saturation Systolic And Diastolic Provider Name and Address Organization Details Last Updated DateTime 5 147.32 cm 30.2 kg/m2 73034.1 g 72 /min 98 % 174/73 mm[Hg] Sherry Browning [facility] 5 13:59:14 Date Recorded Body height Body mass index (BMI) Body weight Heart rate Oxygen saturation Systolic And Diastolic Provider Name and Address Organization Details Last Updated DateTime 5 147.32 cm 29.9 kg/m2 61374.7 1 g 60 /min 97 % 158/70 mm[Hg] [facility] 5 15:13:54 Date Recorded Body height Body mass index (BMI) Body weight Heart rate Oxygen saturation Systolic And Diastolic Provider Name and Address Organization Details Last Updated DateTime 5 147.32 cm 31.4 kg/m2 46695.9 3 g 64 /min 98 % 126/80 mm[Hg] Radha Robertson [facility] 5 13:19:45 Date Recorded Body height Body mass index (BMI) Body weight Heart rate Oxygen saturation Systolic And Diastolic Provider Name and Address Organization Details Last Updated DateTime 5 147.32 cm 30.3 kg/m2 42209.6 1 g 78 /min 99 % 130/70 mm[Hg] Sherry Browning [facility] 5 14:08:59 Social History Question Answer Notes LastModified by Organizat ion Details LastModified Time Tobacco Smoking Status Former Smoker quit 2 months ago Not Available [facility] 06/09/2020 03:30:40 Live Alone Or With Others? Alone Information not available 10/26/2018 What Was The Date Of Your Most Recent Tobacco Screening? 12/05/2018 [id number] Information not available 06/09/2020 How Many Years Have You Smoked Tobacco? 40 [id number] Information not available 06/09/2020 Sex: Unknown Functional [...] son, HTN, . Medical History Condition Response Thyroid Disease Cancer High Cholesterol Y Hyperlipidemia Y Heart Disease Y Hypertension Y Gynecological HistoryNo gynecological history recorded. Obstetrics History GPAL:G 0 P 0 0 0 0 Past Encounters Encounter ID Performer Location Encounter Start Date Encounter Closed Date Diagnosis/Indication Diagnosis SNOMED-CT Code Diagnosis ICD10 Code Diagnosis IMO Codes Diagnosis Note [id number] MD Laura Hess Office [address] [place] [place] [address] 09/05/2018 15:45:22 09/05/2018 17:06:42 Pre-surgery testing 721370840 Z01.89 Will obtain Treadmill Myoview Stress Test to look for any ischemia. Has a high Altmar Risk score. Has Known CAD and/or CAD [...] look for any ischemia. Has a high Altmar Risk score. Has Known CAD and/or CAD risk equivalent . Will get echo to look for any structural heart disease Coronary arteriosclerosis 23062931 I25.10 Has a prior hx of CAD required stent placement x2 over 20 years ago at [facility]. Will review records that was provided. Will obtain Treadmill Myoview Stress Test to look for any ischemia. Has a high Altmar Risk score. Has Known CAD and/or CAD risk equivalent . Cannot tolerate ANY statin therapy, ASA, or Plavix. Essential hypertension 84114916 I10 Well controlled on current regimen. Continue. Carcinoma of female breast 648530913 C50.[address] Hawley. Needs surgery. Family his tory of coronary arteriosclerosis 713559586 Z82.49 Her son passed from a MD at the age of 53. Her father passed from a MD at the age of 70. Will obtain Treadmill Myoview Stress Test to look for any ischemia. Has a high Altmar Risk score. Has Known CAD and/or CAD risk equivalent . Needs maximal medical therapy [place]. [id number] MD Laura Hess Office [address] [place] [address] 09/20/2018 11:21:11 09/20/2018 12:21:11 Pre-surgery testing 524496682 Z01.89 stress test is abnormal The patient [...] look for any ischemia. Has a high Altmar Risk score. Has Known CAD and/or CAD risk equivalent . Will get echo to look for any structural heart disease Coronary arteriosclerosis 10598007 I25.10 Has a prior hx of CAD required stent placement x2 over 20 years ago at [facility]. Will review records that was provided. Will obtain Treadmill Myoview Stress Test to look for any ischemia. Has a high Altmar Risk score. Has Known CAD and/or CAD risk equivalent . Cannot tolerate ANY statin therapy, ASA, or Plavix. Essential hypertension 85576999 I10 Well controlled on current regimen. Continue. Carcinoma of female breast 542132170 C50.[address] Hawley. Needs surgery. Family his tory of coronary arteriosclerosis 169925938 Z82.49 Her son passed from a MD at the age of 53. Her father passed from a MD at the age of 70. Will obtain Treadmill Myoview Stress Test to look for any ischemia. Has a high Altmar Risk score. Has Known CAD and/or CAD risk equivalent . Needs maximal medical therapy and risk factor modificati on. Angina pectoris 41380805 0 I20.9 Stented co ronary artery 600483992 Z95.5 [id number] MD Laura Wilcox Office [address] [facility] [place] [place] [address] 10/29/2018 10:42:18 10/29/2018 11:25:11 Pre-surgery testing 662361570 Z01.89 pt had cABGshe is going for lung resectionl ow risk for moderate risk surgerycon t Metoprolol and statiin Dyspnea on exertion 6084 5006 R06.09 probably due to her left upper lung mass Coronary arteriosclerosis 47617201 I25.10 Has a prior hx of CAD required stent placement x2 over 20 years ago at [facility]. Will review records that was provided. Cannot tolerate ANY statin therapy, ASA, or Plavix.bud billy cut down Metoprolol due to diziness Essential hypertension 84047444 I10 Well controlled on current regimen. Continue. Carcinoma of female breast 280160881 C50.[address] Hawley. Needs surgery. Family his tory of coronary arteriosclerosis 912972824 Z82.49 Her son passed from a MD at the age of 53. Her father passed from a MD at the age of 70. Needs maximal medical therapy and risk factor modificati on. Angina pectoris 31890890 0 I20.9 Stented co ronary artery 170920943 Z95.5 [id number] MD Laura Hess e Office [address] [place] [address] 12/05/2018 14:08:41 12/05/2018 15:06:02 Pre-surgery testing 412878255 Z01.89 pt had cABGshe is going for lung resectionl ow risk for moderate risk surgerycon t Metoprolol Dyspnea on exertion 6084 5006 R06.09 probably due to her left upper lung mass Coronary arteriosclerosis 39796396 I25.10 Has a prior hx of CAD required stent placement x2 over 20 years ago at [facility]. Will review records that was provided. Cannot tolerate ANY statin therapy, ASA, or Plavix.ubd billy cut down Metoprolol due to diziness Essential hypertension 02690095 I10 Well controlled on current regimen. Continue. Carcinoma of female breast 645089344 C50.[address] Hawley. Needs surgery. Family his tory of coronary arteriosclerosis 558333202 Z82.49 Her son passed from a MD at the age of 53. Her father passed from a MD at the age of 70. Needs maximal medical therapy and risk factor modificati on. Angina pectoris 58057051 0 I20.9 Stented co ronary artery 644186811 Z95.5 Intermitte nt claudication 06565003 I73.9 [id number] MD Laura Hess e Office [address] [facility] [place] [address] 03/13/2019 14:20:10 03/13/2019 15:53:00 Pre-surgery testing 279566822 Z01.89 pt had cABGshe is going for lung resectionl ow risk for moderate risk surgerycon t Metoprolol Dyspnea on exertion 6084 5006 R06.09 probably due to her left upper lung mass Coronary arteriosclerosis 65951570 I25.10 Has a prior hx of CAD required stent placement x2 over 20 years ago at [facility]. Will review records that was provided. Cannot tolerate ANY statin therapy, ASA, or Plavix.bud billy cut down Metoprolol due to wheexing Essential hypertension 27841033 I10 Well controlled on current regimen. Continue. Carcinoma of female breast 785612417 C50.[address] Hawley. Needs surgery. Family his tory of coronary arteriosclerosis 317120251 Z82.49 Her son passed from a MD at the age of 53. Her father passed from a MD at the age of 70. Needs maximal medical therapy and risk factor modificati on. Angina pectoris 98862496 0 I20.9 Stented co ronary artery 226812438 Z95.5 Intermitte nt claudication 56211256 I73.9 [id number] MD Laura Hess Office [address] [facility] [facility] [facility] [address] [place], [place] [address] , [place] [address] 04/25/2019 09:28:18 04/25/2019 10:32:54 Dyspnea on exertion 61636453 R06.09 probably due to her left upper lung mass 04/25/19The patient states that her PCP stoped the toprol XL due to SOB. The patient states that her breathing has improved since then. Coronary arteriosclerosis 14548040 I25.10 CABG X 2 done in 09/25/18:L DAYRON to mid LAD,reserv ed saphenous vein graft from aorta to D2. Has a prior hx of CAD required stent placement x2 over 20 years ago at [facility]. Will review records that was provided. Feels she can tolerate Simvastati n better than Atorvastat in. ASA, or Plavix.bud billy cut down Metoprolol due to wheexing. PCP stoped metoprolol Essential hypertension 86284706 I10 Well controlled on current regimen. Continue. 04/25/19 BP 148/90 patient states she has not taking medication today, however will after she can eat. Carcinoma of female breast 574855364 C50.[address] Hawley. Needs surgery. Family his tory of coronary arteriosclerosis 518625598 Z82.49 Her son passed from a MD at the age of 53. Her father passed from a MD at the age of 70. Needs maximal medical therapy and risk factor modificati on. Angina pectoris 24919168 0 I20.9 Stented co ronary artery 352149911 Z95.5 CABG X 2 done in 09/25/18:L DAYRON to mid LAD,reserv ed saphenous vein graft from aorta to D2. Intermitte nt claudication 38880119 I73.9 Dyslipidemia 822331060 E 78.5 on rosuvastat in 10 mg but want to change to simvastati n 10/07/18 LDL:63 [id number] MD Laura Pollard Office [address] [facility] [place] [place] [address] 08/21/2019 13:51:23 08/21/2019 14:51:47 Dyspnea on exertion 56499029 R06.09 probably due to her left upper lung mass 04/25/19The patient states that her PCP stoped the toprol XL due to SOB. The patient states that her breathing has improved since then. Coronary arteriosclerosis 78553676 I25.10 CABG X 2 done in 09/25/18:L DAYRON to mid LAD,reserv ed saphenous vein graft from aorta to D2. Has a prior hx of CAD required stent placement x2 over 20 years ago at [facility]. Will review records that was provided. Feels she can tolerate Simvastati n better than Atorvastat in. ASA, or Plavix.bud mariajose cut down Metoprolol due to wheezing. PCP stoped metoprolol Essential hypertension 31199482 I10 bp 140/80 Carcinoma of female breast 526778378 C50.[address] Hawley. Needs surgery. Family his tory of coronary arteriosclerosis 131667906 Z82.49 Her son passed from a MD at the age of 53. Her father passed from a MD at the age of 70. Needs maximal medical therapy and risk factor modificati on. Angina pectoris 44822520 0 I20.9 Stented co ronary artery 823833315 Z95.5 CABG X 2 done in 09/25/18:L DAYRON to mid LAD,reserv ed saphenous vein graft from aorta to D2. Intermitte nt claudication 80075563 I73.9 Dyslipidemia 214992493 E 78.5 Patient now taking ezetimibe. She could not tolerate simvastati n and rosuvastat in 10/07/18 LDL:63 Peripheral vascular disease 195004916 I73.9 with known Iliac stenosis, will plan Right iliac artery stent [id number] MD Laura Pollard Office [address] [facility] [place] [place] [address] 02/27/2020 14:37:40 02/27/2020 15:23:16 Dyspnea on exertion 34698970 R06.09 check echo patient followed by Pulmonary as well 04/25/19The patient states that her PCP stoped the toprol XL due to SOB. The patient states that her breathing has improved since then. Coronary arteriosclerosis 18401854 I25.10 CABG X 2 done in 09/25/18:L DAYRON to mid LAD,reserv ed saphenous vein graft from aorta to D2. occasional chest pains (since CABG , atypical for angina associated with numbness in both arms). Check echo and Holter. consider stress testing next visit Has a prior hx of CAD required stent placement x2 over 20 years ago at [facility]. Will review records that was provided. Feels she can tolerate Simvastati n better than Atorvastat in. ASA, or Plavix.bud billy cut down Metoprolol due to wheezing. PCP stoped metoprolol Essential hypertension 70202074 I10 Well controlled Carcinoma of female breast 424196171 C50.[address] Hawley. Family his tory of coronary arteriosclerosis 076719106 Z82.49 Her son passed from a MD at the age of 53. Her father passed from a MD at the age of 70. Needs maximal medical therapy and risk factor modificati on. Angina pectoris 23638183 0 I20.9 Stented co ronary artery 717855060 Z95.5 CABG X 2 done in 09/25/18:L DAYRON to mid LAD,reserv ed saphenous vein graft from aorta to D2. Dyslipidemia 814672969 E 78.5 Patient now taking ezetimibe. She could not tolerate simvastati n and rosuvastat in 10/07/18 LDL:63 Peripheral vascular disease 673886109 I73.9 with known Iliac stenosis, will plan Right iliac artery stent Dizziness 916624352 R42 Check echo before next visit.[facility] k 48 HolterWIll d/c torsemide as she appears euvolemic. May take on as needed basis [id number] MD Laura Pollard Office [address] [facility] [place] [place] [address] 04/03/2020 10:38:33 04/03/2020 11:51:16 Dizziness 117631212 R42 48 Holter monitor showed no events. WIll d/c torsemide as she appears euvolemic. May take on as needed basis Coronary arteriosclerosis 69780185 I25.10 CABG X 2 done in 09/25/18:L DAYRON to mid LAD,reserv ed saphenous vein graft from aorta to D2. occasional chest pains (since CABG , atypical for angina associated with numbness in both arms). Check echo and Holter. consider stress testing next visit Has a prior hx of CAD required stent placement x2 over 20 years ago at [facility]. Will review records that was provided. [...] breathing has improved since then. Essential hypertension 70504673 I10 Well controlled Carcinoma of female breast 377759943 C50.[address] Hawley. Family his tory of coronary arteriosclerosis 412217694 Z82.49 Her son passed from a MD at the age of 53. Her father passed from a MD at the age of 70. Needs maximal medical therapy and risk factor modificati on. Angina pectoris 28617850 0 I20.9 Stented co ronary artery 709861298 Z95.5 CABG X 2 done in 09/25/18:L DAYRON to mid LAD,reserv ed saphenous vein graft from aorta to D2. Dyslipidemia 114307911 E 78.5 Patient now taking ezetimibe. She could not tolerate simvastati n and rosuvastat in 10/07/18 LDL:63 Peripheral vascular disease 674370751 I73.9 with known Iliac stenosis, now with worsening claudicati on. will plan peripheral angiogram [place] [id number] MD Laura Pollard Office [address] [facility] [place] [place] [address] 04/23/2020 14:58:08 04/23/2020 15:45:59 Dizziness 117229411 R42 48 Holter monitor showed no events. WIll d/c torsemide as she appears euvolemic. May take on as needed basis Peripheral vascular disease 203137832 I73.9 s/p peripheral angiogram with 70% lesion. No interventi on. On maximal medical therapy. exercise encouraged . Coronary arteriosclerosis 04931217 I25.10 CABG X 2 done in 09/25/18:L DAYRON to mid LAD,reserv ed saphenous vein graft from aorta to D2. occasional chest pains (since CABG , atypical for angina associated with numbness in both arms). Check echo and Holter. consider stress testing next visit Has a prior hx of CAD required stent placement x2 over 20 years ago at [facility]. Will review records that was provided. [...] breathing has improved since then. Essential hypertension 79489691 I10 Well controlled Carcinoma of female breast 974703907 C50.[address] Hawley. Family his tory of coronary arteriosclerosis 112442778 Z82.49 Her son passed from a MD at the age of 53. Her father passed from a MD at the age of 70. Needs maximal medical therapy and risk factor modificati on. Angina pectoris 02479666 0 I20.9 Stented co ronary artery 021636197 Z95.5 CABG X 2 done in 09/25/18:L DAYRON to mid LAD,reserv ed saphenous vein graft from aorta to D2. Dyslipidemia 942673812 E 78.5 Patient now taking ezetimibe. She could not tolerate simvastati n and rosuvastat in 10/07/18 LDL:63 [id number] MD Laura Pollard Office [address] [facility] [place] [place] [address] 10/14/2020 16:22:26 10/14/2020 17:20:49 Dizziness 638666073 R42 48 Holter monitor showed no events. WIll d/c torsemide as she appears euvolemic. May take on as needed basis Peripheral vascular disease 901299474 I73.9 s/p peripheral angiogram with 70% lesion. No interventi on. On maximal medical therapy. exercise encouraged . Coronary arteriosclerosis 13147805 I25.10 CABG X 2 done in 09/25/18:L DAYRON to mid LAD,reserv ed saphenous vein graft from aorta to D2. occasional chest pains (since CABG , atypical for angina associated with numbness in both arms). Check echo and Holter. consider stress testing next visit Has a prior hx of CAD required stent placement x2 over 20 years ago at [facility]. Will review records that was provided. [...] breathing has improved since then. Essential hypertension 42308128 I10 Increase amlodipine today Carcinoma of female breast 054639078 C50.[address] Hawley. Family his tory of coronary arteriosclerosis 673016126 Z82.49 Her son passed from a MD at the age of 53. Her father passed from a MD at the age of 70. Needs maximal medical therapy and risk factor modificati on. Angina pectoris 33213084 0 I20.9 Stented co ronary artery 694864785 Z95.5 CABG X 2 done in 09/25/18:L DAYRON to mid LAD,reserv ed saphenous vein graft from aorta to D2. Dyslipidemia 071765585 E 78.5 Patient now taking ezetimibe. She could not tolerate simvastati n and rosuvastat in 10/07/18 LDL:63 [id number] MD Laura Hess Office [address] [facility] [place] [place] [address] 10/28/2020 14:10:58 10/28/2020 14:44:27 Dizziness 326956691 R42 48 Holter monitor showed no events. WIll d/c torsemide as she appears euvolemic. May take on as needed basis Peripheral vascular disease 369778532 I73.9 s/p peripheral angiogram with 70% lesion. No interventi on. On maximal medical therapy. exercise encouraged . Coronary arteriosclerosis 15858769 I25.10 CABG X 2 done in 09/25/18:L DAYRON to mid LAD,reserv ed saphenous vein graft from aorta to D2. occasional chest pains (since CABG , atypical for angina associated with numbness in both arms). Check echo and Holter. consider stress testing next visit Has a prior hx of CAD required stent placement x2 over 20 years ago at [facility]. Will review records that was provided. [...] breathing has improved since then. Essential hypertension 12740856 I10 Will add HCTZ for better BP control Increase Amlodipine 10 mg daily Carcinoma of female breast 006551123 C50.[address] Hawley. Family his tory of coronary arteriosclerosis 136453629 Z82.49 Her son passed from a MD at the age of 53. Her father passed from a MD at the age of 70. Needs maximal medical therapy and risk factor modificati on. Angina pectoris 21443717 0 I20.9 Stented co ronary artery 952444324 Z95.5 CABG X 2 done in 09/25/18:L DAYRON to mid LAD,reserv ed saphenous vein graft from aorta to D2. Dyslipidemia 629474393 E 78.5 Patient now taking ezetimibe. She could not tolerate simvastati n and rosuvastat in 10/07/18 LDL:63 [id number] Adryan Stevens MD [place] [facility] [address] [place] [address] 12/28/2020 14:46:58 12/28/2020 15:22:34 Essential hypertension 18572442 I10 Fair control on current regimen Dizziness 446031671 R42 48 holter monitor obtained 03/03/2020 showed no events Improved following discontinu ation of HCTZ and decreasing torsemide to PRN Peripheral vascular disease 304089208 I73.9 Peripheral angiogram 04/08/2020 : Moderate peripheral vascular disease. AAA. Stable, asymptomat ic. Coronary arteriosclerosis 95984483 I25.10 s/p 2V CABG ( 9: QUIGLEY to mid LAD, reserved saphenous vein graft from aorta to D2) Continue maximal medical treatment Carcinoma of female breast 073869062 C50.919 Follows with oncology (Dr. Hawley) Family his tory of coronary arteriosclerosis 521771598 Z82.49 Maximal medical therapy and risk factor modificati on Dyslipidemia 185818477 E 78.5 Needs to keep LDL less than 70, and HDL more than 40. 10/07/2018 LDL 63 Continue Zetia; unable to tolerate statins. Will get fasting lipids for follow-up Atypical chest pain 1025 62855 R07.89 Treadmill Myoview Stress test, has high Altmar Risk score. Has Known CAD, or CAD risk equivalent . To look for any ischemia. Abdominal aortic aneurysm 489020600 I71.4 CTA abdomen/pe lvis 04/16/2020 : Infrarenal abdominal aortic ectasia, approachin g size criteria for aneurysm (28x29 mm). 2 mm nonobstrut ing left power pole renal stone. Stable left adrenal nodules, most compatible with benign process such as adenomas. Will continue close monitoring with serial CTAs [id number] MD Laura [facility] Office [address] [place] [address] 08/11/2021 16:32:23 08/11/2021 17:03:44 Essential hypertension 17529791 I10 Fair control on current regimen Dizziness [id number] R42 48 holter monitor obtained 03/03/2020 showed no events Improved following discontinu ation of HCTZ and decreasing torsemide to PRN Peripheral vascular disease 695423591 I73.9 Peripheral angiogram 04/08/2020 : Moderate peripheral vascular disease. AAA. Stable, asymptomat ic. Coronary arteriosclerosis 91169309 I25.10 s/p 2V CABG ( 9: QUIGLEY to mid LAD, reserved saphenous vein graft from aorta to D2) Continue maximal medical treatmentO btain echo to evaluate for structural /functiona l disease. Carcinoma of female breast 329691753 C50.919 Follows with oncology (Dr. Hawley) Family his tory of coronary arteriosclerosis 030129758 Z82.49 Maximal medical therapy and risk factor modificati on Dyslipidemia 635531567 E 78.5 Needs to keep LDL less than 70, and HDL more than 40. 10/07/2018 LDL 63 Continue Zetia; unable to tolerate statins. Will get fasting lipids for follow-up Atypical chest pain 1025 84713 R07.89 Treadmill Myoview Stress test was negative Abdominal aortic aneurysm 645808107 I71.4 CTA abdomen/pe lvis 04/16/2020 : Infrarenal abdominal aortic ectasia, approachin g size criteria for aneurysm (28x29 mm). 2 mm nonobstrut ing left power pole renal stone. Stable left adrenal nodules, most compatible with benign process such as adenomas. Will continue close monitoring with serial CTAs [id number] MD Laura Hess Office [address] [facility] [place] [place] [address] 02/21/2022 10:39:11 02/21/2022 12:01:45 Essential hypertension 24915218 I10 Fair control on current regimen Dizziness 520573881 R42 48 holter monitor obtained 03/03/2020 showed no events Improved following discontinu ation of HCTZ and decreasing torsemide to PRN Peripheral vascular disease 530048077 I73.9 Peripheral angiogram 04/08/2020 : Moderate peripheral vascular disease. AAA. Stable, asymptomat ic. Coronary arteriosclerosis 15535503 I25.10 s/p 2V CABG ( 9: QUIGLEY to mid LAD, reserved saphenous vein graft from aorta to D2) Continue maximal medical treatmentO btain echo to evaluate for structural /functiona l disease. Carcinoma of female breast 323103669 C50.919 Follows with oncology (Dr. Hawley) Family his tory of coronary arteriosclerosis 953542095 Z82.49 Maximal medical therapy and risk factor modificati on Dyslipidemia 790820205 E 78.5 Needs to keep LDL less than 70, and HDL more than 40. Continue Zetia; unable to tolerate statins.Wi ll try on Liqview injection Atypical chest pain 1025 61460 R07.89 Treadmill Myoview Stress test was negative Abdominal aortic aneurysm 593586531 I71.4 CTA abdomen/pe lvis 04/16/2020 : Infrarenal abdominal aortic ectasia, approachin g size criteria for aneurysm (28x29 mm). 2 mm nonobstrut ing left power pole renal stone. Stable left adrenal nodules, most compatible with benign process such as adenomas. Will continue close monitoring with serial CTAs [id number] Adryan Stevens MD [facility] Office [address] [facility] [place] [address] 08/18/2022 11:30:27 08/18/2022 12:27:51 Essential hypertension 91996990 I10 Fair control on current regimen Dizziness 618604757 R42 better Peripheral vascular disease 433033147 I73.9 Peripheral angiogram 04/08/2020 : Moderate peripheral vascular disease. AAA. Stable, asymptomat ic. Coronary arteriosclerosis 98279158 I25.10 s/p 2V CABG ( 9: QUIGLEY to mid LAD, reserved saphenous vein graft from aorta to D2) Continue maximal medical treatmentO btain echo to evaluate for structural /functiona l disease. Carcinoma of female breast 777053175 C50.919 Follows with oncology (Dr. Hawley) Family his tory of coronary arteriosclerosis 542006552 Z82.49 Maximal medical therapy and risk factor modificati on Dyslipidemia 770991631 E 78.5 Needs to keep LDL less than 70, and HDL more than 40. Continue Zetia; unable to tolerate statins.Wi ll try on Liqview injection Atypical chest pain 1025 89227 R07.89 Treadmill Myoview Stress test was negative [id number] Adryan Stevens MD [place] [facility] [address] [place] [address] 02/08/2023 15:26:49 02/08/2023 16:29:52 Essential hypertension 15776525 I10 Fair control on current regimen Dizziness 950272816 R42 better Peripheral vascular disease 897795543 I73.9 Peripheral angiogram 04/08/2020 : Moderate peripheral vascular disease. AAA. Stable, asymptomat ic. Coronary arteriosclerosis 81951508 I25.10 s/p 2V CABG ( 9: QUIGLEY to mid LAD, reserved saphenous vein graft from aorta to D2) Continue maximal medical treatmentO btain echo to evaluate for structural /functiona l disease. Carcinoma of female breast 441398592 C50.919 Follows with oncology (Dr. Hawley) Family his tory of coronary arteriosclerosis 436641810 Z82.49 Maximal medical therapy and risk factor modificati on Dyslipidemia 228313497 E 78.5 Needs to keep LDL less than 70, and HDL more than 40. Continue Zetia; unable to tolerate statins.Wi ll try on Liqview injection Atypical chest pain 1025 44995 R07.89 Treadmill Myoview Stress test was negative [id number] Adryan Stevens MD [place] [facility] [address] [place] [address] 08/15/2023 15:23:56 08/15/2023 16:07:03 Essential hypertension 59311626 I10 Fair control on current regimen Peripheral vascular disease 333502863 I73.9 Peripheral angiogram 04/08/2020 : Moderate peripheral vascular disease. AAA. now with painWill get KATH's Coronary arteriosclerosis 41940846 I25.10 s/p 2V CABG ( 9: QUIGLEY to mid LAD, reserved saphenous vein graft from aorta to D2) Continue maximal medical treatmentO btain echo to evaluate for structural /functiona l disease. Carcinoma of female breast 205470338 C50.919 Follows with oncology (Dr. Hawley) Family his tory of coronary arteriosclerosis 891006963 Z82.49 Maximal medical therapy and risk factor modificati on Dyslipidemia 862515110 E 78.5 Needs to keep LDL less than 70, and HDL more than 40. Continue Zetia; unable to tolerate statins.Wi ll try on Liqview injection [id number] Adryan Stevens MD [place] [facility] [place] [address] 03/12/2024 16:35:48 03/12/2024 17:33:43 Essential hypertension 66451959 I10 Fair control on current regimen Peripheral vascular disease 960562283 I73.9 Peripheral angiogram 04/08/2020 : Moderate peripheral vascular disease. AAA. now with painWill get KATH's Coronary arteriosclerosis 33977470 I25.10 s/p 2V CABG ( 9: QUIGLEY to mid LAD, reserved saphenous vein graft from aorta to D2) Continue maximal medical treatmentO btain echo to evaluate for structural /functiona l disease. Carcinoma of female breast 464941548 C50.919 Follows with oncology (Dr. Hawley) Family his tory of coronary arteriosclerosis 329223338 Z82.49 Maximal medical therapy and risk factor modificati on Dyslipidemia 525312643 E 78.5 Needs to keep LDL less than 70, and HDL more than 40. Continue Zetia; unable to tolerate statins.wa s on Liqviio injection , but had side effect, she stopped it [id number] Adryan Stevens MD [place] [facility] [place] [address] 09/17/2024 15:11:01 09/17/2024 16:21:59 Essential hypertension 33206628 I10 Fair control on current regimen Peripheral vascular disease 214009412 I73.9 Peripheral angiogram 04/08/2020 : Moderate peripheral vascular disease. AAA. Coronary arteriosclerosis 48287121 I25.10 s/p 2V CABG ( 9: QUIGLEY to mid LAD, reserved saphenous vein graft from aorta to D2) Continue maximal medical treatment Carcinoma of female breast 171862505 C50.919 Follows with oncology (Dr. Hawley) Family his tory of coronary arteriosclerosis 049057250 Z82.49 Maximal medical therapy and risk factor modificati on Dyslipidemia 289869282 E 78.5 Needs to keep LDL less than 70, and HDL more than 40. Continue Zetia; unable to tolerate statins.wa s on Liqviio injection , but had side effect, she stopped it Atypical chest pain 1025 40716 R07.89 [id number] Adryan Stevens MD [place] [facility] [address] [place] [address] 10/19/2024 13:48:50 10/19/2024 14:09:58 Essential hypertension 69976881 I10 Fair control on current regimen Peripheral vascular disease 383557131 I73.9 Peripheral angiogram 04/08/2020 : Moderate peripheral vascular disease. AAA. Coronary arteriosclerosis 56956778 I25.10 s/p 2V CABG ( 9: QUIGLEY to mid LAD, reserved saphenous vein graft from aorta to D2) Continue maximal medical treatment Carcinoma of female breast 617425813 C50.919 Follows with oncology (Dr. Hawley) Family his tory of coronary arteriosclerosis 033161122 Z82.49 Maximal medical therapy and risk factor modificati on Dyslipidemia 690672550 E 78.5 Needs to keep LDL less than 70, and HDL more than 40. Continue Zetia; unable to tolerate statins.wa s on Liqviio injection , but had side effect, she stopped it [id number] Adryan Stevens MD [place] [facility] [place] [address] 01/04/2025 15:04:22 01/04/2025 15:36:18 Essential hypertension 97733765 I10 Not well controlled , and she has side effects from BystolicWi ll change to Coreg 6.25 Peripheral vascular disease 619078055 I73.9 Peripheral angiogram 04/08/2020 : Moderate peripheral vascular disease. AAA. Coronary arteriosclerosis 33797038 I25.10 s/p 2V CABG ( 9: QUIGLEY to mid LAD, reserved saphenous vein graft from aorta to D2) Continue maximal medical treatment Carcinoma of female breast 452466739 C50.919 Follows with oncology (Dr. Hawley) Family his tory of coronary arteriosclerosis 052433718 Z82.49 Maximal medical therapy and risk factor modificati on Dyslipidemia 882681857 E 78.5 Needs to keep LDL less than 70, and HDL more than 40. Continue Zetia; unable to tolerate statins.wa s on Liqvio injection , but had side effect, she stopped it Edema of l ower extremity 377504940 R60.0 77013 Obtain echo to evaluate for structural /functiona l disease. [id number] Adryan Stevens MD [place] [facility] [place] [address] 02/15/2025 12:45:56 02/15/2025 14:10:56 Essential hypertension 51625955 I10 Not well controlled , and she has side effects from BystolicWi ll change to Coreg 6.25 Peripheral vascular disease 745152549 I73.9 Peripheral angiogram 04/08/2020 : Moderate peripheral vascular disease. AAA. Coronary arteriosclerosis 46095074 I25.10 s/p 2V CABG ( 9: QUIGLEY to mid LAD, reserved saphenous vein graft from aorta to D2) Continue maximal medical treatment Carcinoma of female breast 019398696 C50.919 Follows with oncology (Dr. Hawley) Family his tory of coronary arteriosclerosis 969096250 Z82.49 Maximal medical therapy and risk factor modificati on Dyslipidemia 279818738 E 78.5 Needs to keep LDL less than 70, and HDL more than 40. Continue Zetia; unable to tolerate statins.wa s on Liqvio injection , but had side effect, she stopped it Edema of l ower extremity 295242052 R60.0 28033 ECHO 01/15/25: LV chamber size is normal. [...] RV systolic pressure. Atypical chest pain 1025 67244 R07.89 817405 Lexiscan Myoview stress test, pt can not walk. Has known coronary artery disease, with atypical symptoms now [id number] Adryan Stevens MD [place] [facility] [address] [place] [address] 03/29/2025 13:42:34 03/29/2025 14:45:42 Essential hypertension 10290596 I10 Not well controlled , and she has side effects from BystolicWi ll change to Coreg 6.25 Peripheral vascular disease 442190975 I73.9 Peripheral angiogram 04/08/2020 : Moderate peripheral vascular disease. AAA. Coronary arteriosclerosis 40938861 I25.10 s/p 2V CABG ( 9: QUIGLEY to mid LAD, reserved saphenous vein graft from aorta to D2) Continue maximal medical treatment Carcinoma of female breast 269104056 C50.919 Follows with oncology (Dr. Hawley) Family his tory of coronary arteriosclerosis 277961858 Z82.49 Maximal medical therapy and risk factor modificati on Dyslipidemia 423361380 E 78.5 Needs to keep LDL less than 70, and HDL more than 40. Continue Zetia; unable to tolerate statins.wa s on Liqvio injection , but had side effect, she stopped it Edema of l ower extremity 659587330 R60.0 55609 Obtain echo to evaluate for structural /functiona [...] LIFE ( - MEDICARE SUPPLEMENT) Grecia Quinn [id number] Grecia Quinn 03/29/2025 1 [place] Grecia Billy Quinn [id number] Grecia Quinn 03/29/2025 2 FOR LIFE ( - MEDICARE SUPPLEMENT) Grecia Quinn [id number] Grecia Quinn Notes Date Note Type Note Provider Name and Address Organization Details Recorded Time 5 text/html 09/17/24CC : Cardiac follow [id number] women with a past medical history of [...] over 20 years ago at [facility]. *Had CATH done in 09/22/18 revealed severe coronary artery disease with disease noted in the LAD with a severe in stent restenosis,normal LV systolic function,significant disease of right common iliac artery . She has a strong family hx of heart disease on her fathers side. Her son passed from a MD at the age of 53. Her father passed from a MD at the age of 70. Results from this visit, or from the past:PT/INR 04-03-2020 PT 13.0 INR 0.95 PTT 33BMP 04/03/2020 NA 139 K 3.8 CH 104 CO2 25 GL 112 BUN 21 CR 0.8 CA 9.0CBC 04/03/2020 WBC 5.5 RBC 4.49 HGB 13.0 HCT 40.4 PLT 0357209/17/2019 : PT 12.0,INR 0.9009/14/2019 ; Na 138,K 3.9,Cl99,Co2 29,BUN 23,Creati 0.90,Glucose 151,Ca 9.1 CBC : WBC 6.6,RBC 4.69,HGB 13.7,HCT 42.5,PLT 91711: Na 138 ,K 3.6, CL 104, CO2 24, GLU 101, BUN 13, CR 0.8,10/07/18: PT 14.0, INR 1.08,PTT : HB 11.0, HT 34.403: TC 121 ,TG 95 ,HDL 39 ,LDL 2568-42-9313OFHFL TYPE O POSCBC Hgb 11.0, PLT 380chem 10/10/18 k 3.6, cr0.802 FACTOR XA HEPARIN 0.21abo group + rh type, blood 56-28-0179VBBEU TYPE O POS09/23/18: CA 4.8TSH, serum or plasma 52-55-6195WIA 1.: TSH 0.861lipid panel, blood : Na [...] leads10/14/20-NSREKG (): NSRpoor R progression, NSST changeselectrocardiogram 81-29-6279fdeorh sinus Rhythm poor R progression,NSST changes ,Prolonged QT when compared with ECG of 09/28/2018,premature atrial complexes no longer presentEKG, 09/05/18: Sinus Rhythm. nonspecific T wave abnormality. Abnormal EKG. [facility]: Ct, Angiogram, Chest, W/ Contrast 1) stable [...] and PVC's.Last stress test was done at [facility] over 2 years ago.Had CATH [...] systolic function. Abnormal stress rest. ArtifactUS, echocardiogram 55-80-3501UB, Chest 04/16/20:evolving post treatment changes with unchanged [...] LVEF 76%. Adryan Stevens MD [address] [place], [address], [facility] 09/17/2024 16:19:11 5 text/html 10/19/14CC : Cardiac follow [id number] women with a past medical history of [...] over 20 years ago at [facility]. *Had CATH done in 09/22/18 revealed severe coronary artery disease with disease noted in the LAD with a severe in stent restenosis,normal LV systolic function,significant disease of right common iliac artery . She has a strong family hx of heart disease on her fathers side. Her son passed from a MD at the age of 53. Her father passed from a MD at the age of 70. Results from this visit, or from the past:PT/INR 04-03-2020 PT 13.0 INR 0.95 PTT 33BMP 04/03/2020 NA 139 K 3.8 CH 104 CO2 25 GL 112 BUN 21 CR 0.8 CA 9.0CBC 04/03/2020 WBC 5.5 RBC 4.49 HGB 13.0 HCT 40.4 PLT 2190909/17/2019 : PT 12.0,INR 0.9009/14/2019 ; Na 138,K 3.9,Cl99,Co2 29,BUN 23,Creati 0.90,Glucose 151,Ca 9.1 CBC : WBC 6.6,RBC 4.69,HGB 13.7,HCT 42.5,PLT 50333: Na 138 ,K 3.6, CL 104, CO2 24, GLU 101, BUN 13, CR 0.8,10/07/18: PT 14.0, INR 1.08,PTT : HB 11.0, HT 34.403: TC 121 ,TG 95 ,HDL 39 ,LDL 4488-07-3833KXHHJ TYPE O POSCBC Hgb 11.0, PLT 380chem 10/10/18 k 3.6, cr0.802 FACTOR XA HEPARIN 0.21abo group + rh type, blood 38-00-4284ALZRS TYPE O POS09/23/18: CA 4.8TSH, serum or plasma 86-74-5476NRE 1.: TSH 0.861lipid panel, blood 25-73-552785/01/19: Na 138, K 3.8 ,CL 105 ,CO2 26, GLU 116 , BUN 19, CR 0.60, TC 261 ,TG 61, HDL 59,LDL 148 ,CBC w/ diff 37-21-657186/01/19: HB 13.8, HT 42.63-NSR 02/27/20 EKG: Low voltage, chest leads. Poor R progression in chest leads.08/21/2019 : EKG : Low voltage in chest leads ,PoorR progression in chest leads10/14/20-NSREKG (): NSRpoor R progression, NSST changeselectrocardiogram 60-12-5376ehtwuq sinus Rhythm poor R progression,NSST changes ,Prolonged QT when compared with ECG of 09/28/2018,premature atrial complexes no longer presentEKG, 09/05/18: Sinus Rhythm. nonspecific T wave abnormality. Abnormal EKG. [facility]: Ct, Angiogram, Chest, W/ Contrast 1) stable [...] and PVC's.Last stress test was done at [facility] over 2 years ago.Had CATH [...] systolic function. Abnormal stress rest. ArtifactUS, echocardiogram 88-33-7681EM, Chest 04/16/20:evolving post treatment changes with unchanged [...] LVEF 76%. Adryan Stevens MD [address] [place], [address], [place] - [facility] 10/19/2024 14:24:28 5 text/html 01/04/25CC : Cardiac follow up, [id number] women with a past medical history of [...] over 20 years ago at [facility]. *Had CATH done in 09/22/18 revealed severe coronary artery disease with disease noted in the LAD with a severe in stent restenosis,normal LV systolic function,significant disease of right common iliac artery . She has a strong family hx of heart disease on her fathers side. Her son passed from a MD at the age of 53. Her father passed from a MD at the age of 70. Results from this visit, or from the past:PT/INR 04-03-2020 PT 13.0 INR 0.95 PTT 33BMP 04/03/2020 NA 139 K 3.8 CH 104 CO2 25 GL 112 BUN 21 CR 0.8 CA 9.0CBC 04/03/2020 WBC 5.5 RBC 4.49 HGB 13.0 HCT 40.4 PLT 8204409/17/2019 : PT 12.0,INR 0.902 ; Na 138,K 3.9,Cl99,Co2 29,BUN 23,Creati 0.90,Glucose 151,Ca 9.1 CBC : WBC 6.6,RBC 4.69,HGB 13.7,HCT 42.5,PLT 1736010/10/18: Na 138 ,K 3.6, CL 104, CO2 24, GLU 101, BUN 13, CR 0.8,10/07/18: PT 14.0, INR 1.08,PTT : HB 11.0, HT 34.403: TC 121 ,TG 95 ,HDL 39 ,LDL 5862-39-6682WOVUE TYPE O POSCBC Hgb 11.0, PLT 380chem 10/10/18 k 3.6, cr0.802 FACTOR XA HEPARIN 0.21abo group + rh type, blood 06-74-5247LRGIK TYPE O POS09/23/18: CA 4.8TSH, serum or plasma 80-98-1127SKU 1.: TSH 0.861lipid panel, blood 72-39-034555/01/19: Na 138, K 3.8 ,CL 105 ,CO2 26, GLU 116 , BUN 19, CR 0.60, TC 261 ,TG 61, HDL 59,LDL 148 ,CBC w/ diff : HB 13.8, HT 42.63-NSR 02/27/20 EKG: Low voltage, chest leads. Poor R progression in chest leads.08/21/2019 : EKG : Low voltage in chest leads ,PoorR progression in chest leads10/14/20-NSREKG (): NSRpoor R progression, NSST changeselectrocardiogram 48-28-1558ieqdcd sinus Rhythm poor R progression,NSST changes ,Prolonged QT when compared with ECG of 09/28/2018,premature atrial complexes no longer presentEKG, 09/05/18: Sinus Rhythm. nonspecific T wave abnormality. Abnormal EKG. [facility] Ct, Angiogram, Chest, W/ Contrast 1) stable [...] and PVC's.Last stress test was done at [facility] over 2 years ago.Had CATH [...] systolic function. Abnormal stress rest. ArtifactUS, echocardiogram [id number], Chest 04/16/20:evolving post treatment changes with unchanged [...] Artifact noted. LVEF 76%. Adryan Stevens MD [address] [place], [address], [facility] - [facility] 01/04/2025 15:32:44 5 text/html 02/15/25CC : Cardiac follow up, chest [id number] women with a past medical history of [...] over 20 years ago at [facility]. *Had CATH done in 09/22/18 revealed severe coronary artery disease with disease noted in the LAD with a severe in stent restenosis,normal LV systolic function,significant disease of right common iliac artery . She has a strong family hx of heart disease on her fathers side. Her son passed from a MD at the age of 53. Her father passed from a MD at the age of 70. Results from this visit, or from the past:PT/INR 04-03-2020 PT 13.0 INR 0.95 PTT 33BMP 04/03/2020 NA 139 K 3.8 CH 104 CO2 25 GL 112 BUN 21 CR 0.8 CA 9.0CBC 04/03/2020 WBC 5.5 RBC 4.49 HGB 13.0 HCT 40.4 PLT 2360109/17/2019 : PT 12.0,INR 0.902 ; Na 138,K 3.9,Cl99,Co2 29,BUN 23,Creati 0.90,Glucose 151,Ca 9.1 CBC : WBC 6.6,RBC 4.69,HGB 13.7,HCT 42.5,PLT 54105: Na 138 ,K 3.6, CL 104, CO2 24, GLU 101, BUN 13, CR 0.8,10/07/18: PT 14.0, INR 1.08,PTT : HB 11.0, HT 34.403: TC 121 ,TG 95 ,HDL 39 ,LDL 8511-31-7766XUKPZ TYPE O POSCBC Hgb 11.0, PLT 380chem 10/10/18 k 3.6, cr0.802 FACTOR XA HEPARIN 0.21abo group + rh type, blood 78-89-6296GLTCL TYPE O POS09/23/18: CA 4.8TSH, serum or plasma 80-52-2145EZS 1.: TSH 0.861lipid panel, blood 07-16-425278/01/19: Na 138, K 3.8 ,CL 105 ,CO2 26, GLU 116 , BUN 19, CR 0.60, TC 261 ,TG 61, HDL 59,LDL 148 ,CBC w/ diff 56-59-385271/01/19: HB 13.8, HT 42.63-NSR 02/27/20 EKG: Low voltage, chest leads. Poor R progression in chest leads.08/21/2019 : EKG : Low voltage in chest leads ,PoorR progression in chest leads10/14/20-NSREKG (): NSRpoor R progression, NSST changeselectrocardiogram 09-06-5154uhtgto sinus Rhythm poor R progression,NSST changes ,Prolonged QT when compared with ECG of 09/28/2018,premature atrial complexes no longer presentEKG, 09/05/18: Sinus Rhythm. nonspecific T wave abnormality. Abnormal EKG. [facility] Ct, Angiogram, Chest, W/ Contrast 1) stable [...] and PVC's.Last stress test was done at [facility] over 2 years ago.Had CATH [...] systolic function. Abnormal stress rest. ArtifactUS, echocardiogram 68-50-7545KD, Chest 04/16/20:evolving post treatment changes with unchanged [...] stress test. Artifact noted. LVEF 76%. Mary Bruce [facility], [place] - [facility] 03/29/2025 11:34:28 5 text/html *Obtain echo03/29/25CC : Cardiac follow [id number] women with a past medical history of [...] over 20 years ago at [facility]. *Had CATH done in 09/22/18 revealed severe coronary artery disease with disease noted in the LAD with a severe in stent restenosis,normal LV systolic function,significant disease of right common iliac artery . She has a strong family hx of heart disease on her fathers side. Her son passed from a MD at the age of 53. Her father passed from a MD at the age of 70. Results from this visit, or from the past:PT/INR 04-03-2020 PT 13.0 INR 0.95 PTT 33BMP 04/03/2020 NA 139 K 3.8 CH 104 CO2 25 GL 112 BUN 21 CR 0.8 CA 9.0CBC 04/03/2020 WBC 5.5 RBC 4.49 HGB 13.0 HCT 40.4 PLT 9036509/17/2019 : PT 12.0,INR 0.902 ; Na 138,K 3.9,Cl99,Co2 29,BUN 23,Creati 0.90,Glucose 151,Ca 9.1 CBC : WBC 6.6,RBC 4.69,HGB 13.7,HCT 42.5,PLT 50735: Na 138 ,K 3.6, CL 104, CO2 24, GLU 101, BUN 13, CR 0.8,10/07/18: PT 14.0, INR 1.08,PTT : HB 11.0, HT 34.403: TC 121 ,TG 95 ,HDL 39 ,LDL 8560-81-3075NCMYM TYPE O POSCBC Hgb 11.0, PLT 380chem 10/10/18 k 3.6, cr0.8009/25/18 FACTOR XA HEPARIN 0.21abo group + rh type, blood 64-69-0333TTPXR TYPE O POS09/23/18: CA 4.8TSH, serum or plasma 35-81-6842ODJ 1.: TSH 0.861lipid panel, blood 55-64-056544/01/19: Na 138, K 3.8 ,CL 105 ,CO2 26, GLU 116 , BUN 19, CR 0.60, TC 261 ,TG 61, HDL 59,LDL 148 , CBC w/ diff : HB 13.8, HT 42.63-NSR 02/27/20 EKG: Low voltage, chest leads. Poor R progression in chest leads.08/21/2019 : EKG : Low voltage in chest leads ,PoorR progression in chest leads10/14/20-NSREKG (): NSRpoor R progression, NSST changeselectrocardiogram 79-53-8757dwkifx sinus Rhythm poor R progression,NSST changes ,Prolonged QT when compared with ECG of 09/28/2018,premature atrial complexes no longer presentEKG, 09/05/18: Sinus Rhythm. nonspecific T wave abnormality. Abnormal EKG. [facility] Ct, Angiogram, Chest, W/ Contrast 1) stable [...] and PVC's.Last stress test was done at [facility] over 2 years ago.Had CATH [...] systolic function. Abnormal stress rest. ArtifactUS, echocardiogram [id number], Chest 04/16/20:evolving post treatment changes with unchanged [...] Artifact noted. LVEF 76%. Adryan Stevens MD [address] [place], [address], [facility] - [facility] 03/29/2025 14:42:51 OBGyn Episode No OBEpisode recorded.
--- OUTSIDE RECORDS SUMMARY | 2025-06-26 17:46 | XMS_ITS | Encounter Summary ---
Author Organization [facility] Healthcare Address [address] [place] [address] Care Team Providers Care Appeals Specialist Name Role Phone Kaushik Gonzalez DO Unavailable Navjot Danielson MD Unavailable [phone] Rinku Hoffmann MD Unavailable [phone] Adryan Stevens MD Unavailable [phone] Romel Valerio MD PhD Unavailable [phone] Rachel Ramirez MD Unavailable [phone] Ivis Okeefe MD Unavailable [phone] Chandni Vang NP Primary Care Provider [phone] Encounter Details Date Type Department Care Team (Late st Contact Info) Description 06/23/2025 Results Follow-Up [facility] Pulmonology [address] [facility] [address] [place] [address] [place] [address] [place] [address] [address] [place] [address] Cytology Social History Tobacco Use Types Packs/Day Years [...] on file Legal 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 Gender Identity Not on file Sexual Orientation Not on file documented as of this encounter Plan of Treatment Not on file documented as of this encounter Visit Diagnoses Not on filedocumented in this encounter Care Teams Appeals Specialist Relationship Specialty Start Date End Date Chandni Vang NP [address] [facility] 1 [facility] 1 [place] [address] PCP - General Nurse Practitioner 08/22/23 Kaushik Gonzalez DO Referring Physician Internal Medicine 08/09/18 Navjot Danielson MD Cardiothoracic Surgery 08/21/18 Rinku Hoffmann MD Radiation Oncologist Radiation Oncology 07/28/21 Adryan Stevens MD Consulting Physician Cardiovascular Disease 09/02/21 Romel Valerio MD PhD [address] [place] [address] MEDICAL ONCOLOGY, [address] [address] Consulting Physician Medical Oncology 04/04/22 Rachel Ramirez MD [address] [place] [address] MEDICAL ONCOLOGY, [address] [address] Consulting Physician Pulmonary Disease 04/20/22 Ivis Okeefe MD [address] [facility] MEDICAL ONCOLOGY, [address] [address] Referring Physician Dermatology 08/30/22 documented as of this encounter
--- OUTSIDE RECORDS SUMMARY | 2025-06-26 17:46 | XMS_ITS | Continuity of Care Document ---
Author Organization [place] - [facility] OFFICE Address [address] [place] [address] Care Team Providers Care Motor Equipment Commanding Officer Name Role Phone JOSIANE STEWARD Primary Care Provider [phone] Assessment No assessment recorded. Plan of Treatment Reminders Order Date Submit Date Provider Last Modified By Organization Details Last Modified Time Details Appointments ESTABLISH ED PATIENT DETAILED 2024 03:15P M Adryan Ramachandran i, MD Not available Not available Not available Lab None recorded. Referral None recorded. Procedures None recorded. Surgeries None recorded. Imaging None recorded. Medication Orders None recorded. Patient TargetsNo targets recorded. Patient InstructionsNo instructions recorded. Reason for Referral None Reported. Results Created Date Observation Date Name Description Value Unit Range Abnormal Flag Note LastModifiedBy Organization Detail LastModifiedTime 03/05/2002/22/2025 elayne gonzales cardi olite stres s test (PROC ) No observ ation record ed. Not Available 2024 08:40:03 Result Notes None recorded. Problems Name Problem SNOMED Code Status Onset Date Resolution Date Notes Provider Name and Address Organization Details Recorded Time Dyspnea on exertion 11536548 Active 2018 Not Available [facility] 3 18:03:57 Pre-surgery testing Active 2018 Not Available [facility] 3 18:03:57 Coronary arteriosclero sis 74200402 Active 2018 Not Available [facility] 3 18:03:56 Essential hypertension 43373012 Active 2018 Not Available [facility] 3 18:03:57 Carcinoma of female breast 905592442 Active 2018 Not Available [facility] 3 18:03:57 Family history of coronary arteriosclero sis 183339128 Active 2018 Not Available [facility] 3 18:03:56 Malignant neoplasm of lung 951282398 Active 2018 Not Available [facility] 3 18:03:57 Angina pectoris 054291736 Active 2019 Not Available [facility] 3 18:03:57 Stented coronary artery 703706760 Active 2019 Not Available [facility] 3 18:03:57 Intermittent claudication 17266607 Active 2019 Not Available [facility] 3 18:03:57 Dyslipidemia 044829781 Active 2019 Not Available [facility] 3 18:03:57 Notes:Has Lung mass, LL lobe . Needs surgical pre-auth for Dr. Argueta. Problem Notes None recorded. Medical Equipment None Reported. Allergies Allergen ID Allergen Name Allergen Category Reaction Reaction Severity Criticality Documentation Date Start Date Code Code System Note Provider Name and Address Organization Details Recorded Time 7932 clopidogr el medicatio n Not available Not available Not available 10/26/2018 72922 RxNorm Sanjeev Raphael [facility], [place] - [facility] 9 09:45:21 Medications [...] Updated DateTime 5 147.32 cm 30.3 kg/m2 26972.6 1 g 78 /min 99 % 130/70 mm[Hg] Sherry Nam [place] - [facility] 5 14:08:59 Social History Question Answer Notes LastModified by [employer] Details LastModified Time Tobacco Smoking Status Former Smoker quit 2 months ago Not Available [facility] 06/09/2020 03:30:40 Live Alone Or With Others? Alone Information not available 10/26/2018 What Was The Date Of Your Most Recent Tobacco Screening? 12/05/2018 [id number] Information not available 06/09/2020 How Many Years Have You Smoked Tobacco? 40 [id number] Information not available 06/09/2020 Sex: Unknown Functional Status Question Answer Note LastModified by [employer] Details LastModified Time Do you or have [...] . Medical History Condition Response Thyroid Disease Hyperlipidemia Y Cancer High Cholesterol Y Heart Disease Y Hypertension Y Gynecological HistoryNo gynecological history recorded. Obstetrics History GPAL:G 0 P 0 0 0 0 Past Encounters Encounter ID Performer Location Encounter Start Date Encounter Closed Date Diagnosis/Indication Diagnosis SNOMED-CT Code Diagnosis ICD10 Code Diagnosis IMO Codes Diagnosis Note [id number] Adryan Stevens MD [place] OFFICE [address] [place] [address] 03/29/2025 13:42:34 03/29/2025 14:45:42 Essential hypertension 87494470 I10 Not well controlled , and she has side effects from BystolicWi ll change to Coreg 6.25 Peripheral vascular disease 223610558 I73.9 Peripheral angiogram 04/08/2020 : Moderate peripheral vascular disease. AAA. Coronary arteriosclerosis 34939715 I25.10 s/p 2V CABG ( 9: QUIGLEY to mid LAD, reserved saphenous vein graft from aorta to D2) Continue maximal medical treatment Carcinoma of female breast 520357501 C50.919 Follows with oncology (Dr. Hawley) Family his tory of coronary arteriosclerosis 396943254 Z82.49 Maximal medical therapy and risk factor modificati on Dyslipidemia 878379900 E 78.5 Needs to keep LDL less than 70, and HDL more than 40. Continue Zetia; unable to tolerate statins.wa s on Liqvio injection , but had side effect, she stopped it Edema of l ower extremity 069448445 R60.0 62766 Obtain echo to evaluate for structural /functiona l disease. Health Concerns Section Related Observation LastModified by Organization Detai ls LastModified Time None Recorded Concern Status LastModified by Organization Details LastModified Time None Recorded Payers Encounter Date Sequence Insurance Name Policy Number Policy Erickson Covered Member ID Erickson Member ID Guarantor Name 03/29/2025 1 [place] Grecia Cassius Adlerox [id number] Grecia Quinn 03/29/2025 2 FOR LIFE ( - MEDICARE SUPPLEMENT) Grecia Quinn [id number] Grecia Quinn Notes Date Note Type Note Provider Name and Address Organization Details Recorded Time 03/29/2025 text/html *Obtain echo03/29/25CC : Cardiac follow [id number] women with a past medical history of CAD s/p CABG (2/19/19), HLD, DM is here for 1 month [...] placement x2 over 20 years ago at [facility]. *Had CATH done in 09/22/18 revealed severe coronary artery disease with disease noted in the LAD with a severe in stent restenosis,normal LV systolic function,significant disease of right common iliac artery . She has a strong family hx of heart disease on her fathers side. Her son passed from a CT at the age of 53. Her father passed from a CT at the age of 70. Results from this visit, or from the past:PT/INR 04-03-2020 PT 13.0 INR 0.95 PTT 33BMP 04/03/2020 NA 139 K 3.8 CH 104 CO2 25 GL 112 BUN 21 CR 0.8 CA 9.0CBC 04/03/2020 WBC 5.5 RBC 4.49 HGB 13.0 HCT 40.4 PLT 3683509/17/2019 : PT 12.0,INR 0.902 ; Na 138,K 3.9,Cl99,Co2 29,BUN 23,Creati 0.90,Glucose 151,Ca 9.1 CBC : WBC 6.6,RBC 4.69,HGB 13.7,HCT 42.5,PLT 68371: Na 138 ,K 3.6, CL 104, CO2 24, GLU 101, BUN 13, CR 0.8,10/07/18: PT 14.0, INR 1.08,PTT : HB 11.0, HT 34.403: TC 121 ,TG 95 ,HDL 39 ,LDL 9603-57-8396XEGOT TYPE O POSCBC Hgb 11.0, PLT 380chem 10/10/18 k 3.6, cr0.802 FACTOR XA HEPARIN 0.21abo group + rh type, blood [id number] TYPE O POS09/23/18: CA 4.8TSH, serum or plasma 24-82-6535RCL 1.: TSH 0.861lipid panel, blood 56-62-419199/01/19: Na 138, K 3.8 ,CL 105 ,CO2 26, GLU 116 , BUN 19, CR 0.60, TC 261 ,TG 61, HDL 59,LDL 148 ,CBC w/ diff : HB 13.8, HT 42.63-NSR 02/27/20 EKG: Low voltage, chest leads. Poor R progression in chest leads.08/21/2019 : EKG : Low voltage in chest leads ,PoorR progression in chest leads10/14/20-NSREKG (08): NSRpoor R progression, NSST changeselectrocardiogra m 29-65-3358otfzzu sinus Rhythm poor R progression,NSST changes ,Prolonged QT when compared with ECG of 09/28/2018,premature atrial complexes no longer presentEKG, 09/05/18: Sinus Rhythm. nonspecific T wave abnormality. Abnormal EKG. [facility] [place]: Ct, Angiogram, Chest, W/ Contrast 1) stable [...] and PVC's.Last stress test was done at [facility] over 2 years ago.Had CATH done [...] systolic function. Abnormal stress rest. ArtifactUS, echocardiogram [id number], Chest 04/16/20:evolving post treatment changes with unchanged [...] Artifact noted. LVEF 76%. Adryan Stevens MD [address] [place], [address], [place] [facility] 03/29/2025 14:42:51 OBGyn Episode No OBEpisode recorded.
--- OUTSIDE RECORDS SUMMARY | 2025-06-26 17:46 | XMS_ITS | Encounter Summary ---
Author Organization [facility] Healthcare Address [address] [place] [address] Care Team Providers Care Bobcat Driver/Labor Name Role Phone Kaushik Gonzalez DO Unavailable Navjot Danielson MD Unavailable [phone] Rinku Hoffmann MD Unavailable [phone] Adryan Stevens MD Unavailable [phone] Romel Valerio MD PhD Unavailable Rachel Ramirez MD Unavailable [phone] Ivis Okeefe MD Unavailable [phone] Chandni Vang NP Primary Care Provider [phone] Reason for Visit * Reason Onset Date Comments Cancer 02/18/2025 Encounter Details Date Type Department Care Team (Late st Contact Info) Description 02/18/2025 Documentation [facility] Medical Office Building 2 Radiation Oncology [address] [place] [address] Cancer Social History Tobacco [...] on file Legal 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 Patient does not drink 02/18/2025 2:18 PM CDT Mahendra Scott documented as of this encounter Plan of Treatment Not on file documented as of this encounter Visit Diagnoses Not on filedocumented in this encounter Care Teams Bobcat Driver/Labor Relationship Specialty Start Date End Date Chandni Vang NP [address] [facility] 1 [facility] 1 [place] [address] PCP - General Nurse Practitioner 08/22/23 Kaushik Gonzalez DO Referring Physician Internal Medicine 08/09/18 Navjot Danielson MD Cardiothoracic Surgery 08/21/18 Rinku Hoffmann MD Radiation Oncologist Radiation Oncology 07/28/21 Adryan Stevens MD Consulting Physician Cardiovascular Disease 09/02/21 Romel Valerio MD PhD [address] [place] [address] MEDICAL ONCOLOGY, [address] [address] Consulting Physician Medical Oncology 04/04/22 Rachel Ramirez MD [facility] MEDICAL ONCOLOGY, [address] [address] Consulting Physician Pulmonary Disease 04/20/22 Ivis Okeefe MD [facility] MEDICAL ONCOLOGY, [address] [id number] Referring Physician Dermatology 08/30/22 documented as of this encounter
--- OUTSIDE RECORDS SUMMARY | 2025-06-26 17:46 | XMS_ITS ---
Author Organization [facility] [place] [address] Address [address] [place] [address] Care Team Providers Care Procedure Manager Name Role Phone Kaushik Gonzalez DO Unavailable Navjot Danielson MD Unavailable [phone] Rinku Hoffmann MD Unavailable [phone] Adryan Stevens MD Unavailable [phone] Romel Valerio MD PhD Unavailable Rachel Ramirez MD Unavailable [phone] Ivis Okeefe MD Unavailable [phone] Chandni aVng NP Primary Care Provider Active Problems Problem [...] (03/18/2022): Added automatically from request for surgery [id number] BMI 30.0-30.9,adult 11/29/2021 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 Pre-op evaluation 11/08/2018 07/05/2021
== END 2025-06-26 14:47 | disposition home or self-care (01) ==
PROVIDERS: PCP Nurse Practitioner Family; Visit Provider Nurse Practitioner Family
DX: Z12.31 Encounter for screening mammogram for malignant neoplasm of breast (principal); Z78.0 Asymptomatic menopausal state; M81.0 Age-related osteoporosis without current pathological fracture; M85.851 Other specified disorders of bone density and structure, right thigh
CPT/HCPCS: 77063; 77067; 77080